=== PATIENT | female | born 1950 | race Two or more races ===

== ENCOUNTER 2023-06-27 09:32 | Outpatient (OUT) | payer OTHER, SELFPAY ==
--- NOTE | 2023-06-27 | XR_ITS ---
The [address] [address] Patient Name: HUSSAIN VILLEDA MRN: [id number] date: 1950 Sex: F Assigned Patient Location: [facility] Current Patient Location: RAD Accession/Order Number: [id number] Exam Date: 06/27/2023 09:48 Report Date: 06/27/2023 10:25 At the request of: MARGARITO JONES Procedure: XR foot LT min 3V PROCEDURE: XR foot LT min 3V COMPARISON: 09/10/2022 HISTORY: LEFT FOOT PAIN FINDINGS: BONES:No acute fracture or dislocation. Moderate enthesopathic spurring plantar calcaneus. Mild to moderate degenerative changes of the midfoot with joint space narrowing and marginal osteophyte formation SOFT TISSUES:Negative. No visible soft tissue swelling. EFFUSION:None visible. OTHER: Negative. XR/XR foot LT min 3V IMPRESSION: No acute abnormality Electronically authenticated by: ELKIN COLLIER Date: 06/27/2023 10:25
== END 2023-06-27 09:33 | disposition home or self-care (01) ==
LOC: RAD 09:36
PROVIDERS: Visit Provider Podiatrist Foot & Ankle Surgery
DX: M79.672 Pain in left foot (principal)
CPT/HCPCS: 73630

== ENCOUNTER 2023-12-24 14:00 | Outpatient (OUT) | payer OTHER, SELFPAY ==
--- NOTE | 2023-12-24 | XR_ITS ---
The [address] [address] Patient Name: HUSSAIN VILLEDA MRN: [id number] date: 1950 Sex: F Assigned Patient Location: Current Patient Location: Accession/Order Number: [id number] Exam Date: 12/24/2023 14:05 Report Date: 12/25/2023 07:24 At the request of: MARGARITO JONES Procedure: XR foot LT min 3V PROCEDURE: XR foot LT min 3V COMPARISON: 06/27/2023 HISTORY: LEFT FOOT PAIN FINDINGS: BONES:Moderate stable hallux valgus. Moderate degenerative changes with joint space narrowing and marginal osteophyte formation most significant in the midfoot. Moderate plantar enthesopathic spurring of the calcaneus SOFT TISSUES:Negative. No visible soft tissue swelling. EFFUSION:None visible. OTHER: Negative. XR/XR foot LT min 3V IMPRESSION: Hallux valgus Osteoarthritis Electronically authenticated by: ELKIN COLLIER Date: 12/25/2023 07:24
--- OUTSIDE RECORDS SUMMARY | 2023-12-24 14:13 | XMS_ITS | CCD ---
Author Organization [facility] Care Team Providers Care Farm Operations Technical Director Name Role Phone Danielle Barros Unavailable Mary Alicea Unavailable DO Nancy Jha Primary Care Provider DO Frank Guzman Attending Provider RIDGE Levine Attending Provider MD Darek Chang II Attending Provider Darek Chang II Unavailable [phone] Keyshawn Acosta Unavailable DO Nancy Jha Primary Care Provider MD Darek Chang II Attending Provider RIDGE Levine Attending Provider [phone] MARGARITO JONES Admitting Unavailable NANCY JHA Primary Care Unavailable MARGARITO JONES Consulting Unavailable MARGARITO JONES Attending Unavailable ALYSA COVARRUBIAS Consulting Unavailable MARGARITO JONES Admitting Unavailable DR MAGNOLIA MICHEL Consulting Unavailable NANCY JHA Primary Care Unavailable MARGARITO JONES Attending Unavailable MARGARITO JONES Consulting Unavailable SONJA OMER Consulting Unavailable DARIUS JEAN Consulting Unavailable MARGARITO COOK Consulting Unavailable MARGARITO JONES Attending Unavailable DR ELKIN COLLIER V Consulting Unavailable MARGARITO JONES Admitting Unavailable MARGARITO JONES Consulting Unavailable DO Nancy Jha Primary Care Provider [phone] ARIELLA Pedersen Emergency Provider DO Nancy Jha Attending Provider DO Nancy Jha Primary Care Provider [phone] MD Darek Chang II Attending Provider Petznick, DO Nancy Primary Care Provider Petznick, DO Nancy Primary Care Provider [phone] MD Darek Chang II Attending Provider Petznick, DO Nancy Primary Care Provider MD Darek Chang II Attending Provider Amber Wang Unavailable Petznick, DO Nancy Primary Care Provider MD Darek Chang II Attending Provider [phone] LEVI Wang Attending Provider Petznick, DO Nancy Primary Care Provider MD Darek Chang II Attending Provider Self, Referral Attending Provider Unavailable Petznick, DO Nancy Primary Care Provider Petznick, DO Nancy Attending Provider Darek Chang II Admitting Unavailabl e Darek Chang II Attending Unavailabl e Petznick, Nancy Primary Care Unavailable Levine, Connie Attending Unavailable Petznick, Nancy Primary Care Unavailable Levine, Connie Admitting Unavailable Amber Wang Attending Unavailable Petznick, Nancy Primary Care Unavailable Amber Wang Admitting Unavailable Self, Referral Attending Unavailable Petznick, Nancy Primary Care Unavailable Self, Referral Admitting Unavailable Petznick, Nancy Primary Care Unavailable Petznick, Nancy Attending Unavailable Petznick, Nancy Admitting Unavailable Darek Chang II Admitting Unavailabl e Darek Chang II Attending Unavailabl e Petznick, Nancy Primary Care Unavailable Otter TailDarek cormier II Attending Unavailabl e Otter TailDarek cormier II Admitting Unavailabl e Petznick, Nancy Primary Care Unavailable Frandy Pedersen Attending Unavailable Petznick, Nancy Primary Care Unavailable Frandy Pedersen Admitting Unavailable Petznick, Nancy Attending Unavailable Petznick, Nancy Admitting Unavailable Petznick, Nancy Primary Care Unavailable Petznick, Nancy Primary Care Unavailable Petznick, Nancy Attending Unavailable Petznick, Nancy Admitting Unavailable Petznick, Nancy Primary Care Unavailable [place] II, Darek M Admitting Unavailabl e [place] II, Darek M Attending Unavailabl e Petznick, Nancy Primary Care Unavailable Petznick, Nancy Attending Unavailable Petznick, Nancy Admitting Unavailable Bernardo II, Darek M Admitting Unavailabl e Bernardo II, Darek M Attending Unavailabl e Petznick, Nancy Primary Care Unavailable [place] II, Darek M Admitting Unavailabl e Bernardo II, Darek M Attending Unavailabl e Petznick, Nancy Primary Care Unavailable Petznick, DO Nancy Primary Care Provider Petznick, DO Nancy Attending Provider Petznick DO, Nancy C Primary Care Provider [phone] MARY ALICE TATUM Referring Unavailable PETZNICK, NANCY C Primary Care Unavailable JARRED TATUMA Referring Unavailable PETZNICK, NANCY C Primary Care Unavailable MIREILLE, MARY ALICE Referring Unavailable PETZNICK, NANCY C Primary Care Unavailable JARRED TATUMA Attending Unavailable PETZNICK, NANCY C Primary Care Unavailable JARRED TATUMA Attending Unavailable PETZNICK, NANCY C Primary Care Unavailable TATUM, MARY ALICE Referring Unavailable PETZNICK, NANCY C Primary Care Unavailable PETZNICK, NANCY C Attending Unavailable PETZNICK, NANCY C Referring Unavailable FRANK GUZMAN Attending Unavailable PETZNICK, NANCY C Attending Unavailable PETZNICK, NANCY C Attending Unavailable Allergies Allergy Classification Reported Allergen(s) Allergy Type Date of Onset Reaction(s) Facility (13 sources) Bee/Wasp/Ant venom Propensity to adverse reactions Unknown [employer] Other (20 sources) Iodine; Translations: [IODINE] Drug Allergy 04-27-20 09 rash, Itching, Unknown [facility] (20 sources) Latex; Translations: [LATEX] Propensity to adverse reactions 10-11-19 16 rash, Itching, Unknown [facility] (20 sources) Penicillin; Translations: [penicillin] Drug Allergy 08-26-19 24 rash, Itching [facility] (20 sources) Shellfish Propensity to adverse reactions 11-06-19 GI Upset, Nausea/vomitin g [facility] [employer] Other (13 sources) paper tape- instead of regular tape to avoid blist Propensity to adverse reactions Unknown [facility] [employer] Other (3 sources) Adhesive agent; Translations: [ADHESIVE] Drug allergy (disorder) 08-26-19 [facility] (1 source) bee venom Drug allergy (disorder) [facility] (1 source) Iodine Drug Allergy [facility] (1 source) Latex Drug allergy (disorder) [facility] (1 source) Shellfish Drug allergy (disorder) [facility] (15 sources) Penicillins; Translations: [Penicillins] Allergy to substance 10-18-19 Unknown Reaction, Rash [facility] (15 sources) Shellfish; Translations: [shellfish derived] Allergy to substance 10-18-19 Unknown Reaction, Vomiting [facility] (15 sources) venom-honey bee; Translations: [venom-honey bee] Allergy to substance 10-18-19 Edema [facility] (10 sources) Adhesive Tape; Translations: [adhesive tape] Allergy to substance 01-30-20 [facility] (11 sources) bee venom protein (honey bee); Translations: [BEE VENOM PROTEIN (HONEY BEE)] Allergy to substance 10-23-19 Swelling, Unknown [facility] (2 sources) paper tape- instead of regular Allergy to substance 05-09-20 [facility] (1 source) Iodine Drug Allergy 01-30-20 [facility] (1 source) Latex Drug allergy (disorder) 01-30-20 [facility] (7 sources) Adhesive agent Drug Intolerance 08-26-19 Itching, Rash, Unknown [facility] (8 sources) Metoprolol; Translations: [METOPROLOL] Drug Allergy 09-19-19 Headache, Dizziness, Nausea/vomitin g [facility] (2 sources) SHELLFISH CONTAINING PRODUCTS; Translations: [SHELLFISH CONTAINING PRODUCTS] Propensity to adverse reactions to food (disorder) 11-06-19 [facility] Rep[facility] Medications Current Medications Medication Drug Class(es) Dates Sig (Normalized) Sig (Original) acetaminophen 500 mg oral tablet (5 sources) Start: 01-31-2023 take 2 tablets by mouth every eight hours for pain Acetaminophen 500 MG 2 tablets for pain Orally every 8 hrs for 30 days MED TO BED UPON DISCHARGE DOS: 02/11/2023 Jan, Active ascorbic acid 1000 mg oral tablet (20 sources) Vitamin C Start: 10-17-2022 take 1 tablet by mouth once daily Ascorbic Acid (Vitamin C) (Vitamin C) 1,000 mg Tablet Active 1000 MG PO Daily October 17, 2022 12:00am Vitamin C Active aspirin 81 mg oral tablet (5 sources) Platelet Aggregation Inhibitor, Nonsteroidal Anti-inflammatory Drug Start: 01-31-2023 take 1 tablet by mouth twice daily Aspirin 81 81 MG 1 tablet Orally Twice a day for 35 days MED TO BED UPON DISCHARGE DOS: 02/11/2023 Jan, Active Start: 01-31-2023 take 1 tablet by janet th every twelve hours Aspirin 81 81 MG 1 tablet Orally Twice a day for 35 days MED TO BED UPON DISCHARGE DOS: 02/11/2023 Jan, Active celecoxib 200 mg oral capsule (5 sources) Nonsteroidal Anti-inflammatory Drug Start: 01-31-2023 take 1 capsule by mouth every twelve hours Celecoxib 200 MG 1 capsule with food Orally Twice a day for 30 days MED TO BED UPON DISCHARGE DOS: 02/11/2023 Jan, Active cholecalciferol 0.125 mg oral tablet (14 sources) Vitamin D Start: 10-17-2022 take 1 tablet by mouth once daily Cholecalciferol (Vitamin D3) (Vitamin D3) 125 mcg (5,000 unit) Tablet Active 8000 UNIT PO Daily October 17, 2022 12:00am Start: 10-17-2022 take 1 tablet by janet th once daily Cholecalciferol (Vitamin D3) (Vitamin D3) 125 mcg (5,000 unit) Tablet Active 18044 UNIT PO Daily October 17, 2022 12:00am clindamycin 300 mg oral capsule (20 sources) Lincosamide Antibacterial Start: 05-09-2023 take 2 capsules by mouth every hour Clindamycin HCl 300 MG 2 capsules Orally 1 hour prior to procedure for 1 day(s) May, Active Start: 01-24-2021 take 1 capsule by mo uth three times daily clindamycin (Cleocin) 300 mg capsule Take 1 capsule (300 mg) by mouth 3 times a day. 01/24/2021 Active take 2 capsules by m outh every eight hours Clindamycin HCl 300 MG 2 capsules Orally every 8 hrs Active clonazePAM 0.5 mg oral tablet (20 sources) Benzodiazepine Start: 01-29-2023 take 0.5 mg by mouth once daily Clonazepam Active 0.5 MG PO Daily January 29, 2023 12:00am Start: 11-08-2022 take 1 tablet by janet th twice daily as needed clonazePAM (KlonoPIN) 0.5 mg tablet Take 1 tablet (0.5 mg) by mouth 2 times a day as needed. 11/08/2022 Active 24 hr dilTIAZem hydrochloride 120 mg extended release oral capsule (1 source) Calcium Channel Steve Start: 09-30-2023 End: 09-29-2024 take 1 capsule by mouth once daily dilTIAZem CD (Cardizem CD) 120 mg 24 hr capsule Indications: Palpitations , Primary hypertension Take 1 capsule (120 mg) by mouth once daily. 90 capsule 3 09/30/2023 09/29/2024 Active ethinyl estradiol 0.0025 mg / norethindrone acetate 0.5 mg oral tablet (7 sources) Estrogen norethindrone ac-eth estradioL (Femhrt Low Dose) 0.5-2.5 mg-mcg tablet Take 1 tablet by mouth once daily. Active ferrous sulfate 325 mg oral tablet (20 sources) Start: 01-29-2023 take 130 mg by mouth once daily Ferrous Sulfate Active 130 MG PO Daily January 29, 2023 12:00am take 1 tablet by mouth every oth er day ferrous sulfate, 325 mg ferrous sulfate, tablet Take 1 tablet by mouth every other day. Active take 1 tablet by mouth three carmelina es weekly Iron 325 (65 Fe) MG 1 tablet Orally Three times a Week Active flecainide acetate 50 mg oral tablet (1 source) Antiarrhythmic Start: 09-30-2023 End: 09-29-2024 take 1 tablet by mouth twice daily flecainide (Tambocor) 50 mg tablet Indications: History of PSVT (paroxysmal supraventricular tachycardia) , Palpitations , High risk medication use Take 1 tablet (50 mg) by mouth 2 times a day. 180 tablet 3 09/30/2023 09/29/2024 Active Handicap placards as directed (1 source) Start: 05-09-2023 Handicap placards as directed as directed as directed as directed for 365 days 1 year handicap placard: 05/09/2023- 05/09/2024 May, Active levothyroxine sodium 0.1 mg oral tablet (20 sources) l-Thyroxine Start: 10-17-2022 take 100 ug by mouth once daily Levothyroxine Active 100 MCG PO Daily October 17, 2022 12:00am Start: 10-30-2016 take 1 tablet by janet th once daily in the morning Levothyroxine Sodium 112 MCG 1 tablet in the morning on an empty stomach Orally Once a day for 90 days October, Active Start: 10-30-2016 take 1 tablet by janet th every twenty-four hours Levothyroxine Sodium 88 MCG 1 tablet Orally Once a day for 90 days October, Active Synthroid 100 MC G TAKE ONE TABLET BY MOUTH EVERY MORNING ON AN EMPTY STOMACH Orally Once a day for 90 days Not-Taking take 1 tablet by janet th once daily in the morning Synthroid 88 TAKE ONE TABLET BY MOUTH EVERY MORNING ON AN EMPTY STOMACH for 30 Not-Taking lisinopril 20 mg oral tablet (20 sources) Angiotensin Converting Enzyme Inhibitor Start: 10-17-2022 take 20 mg by mouth once daily Lisinopril Active 20 MG PO Daily October 17, 2022 12:00am Magnesium (13 sources) take 1 tablet by mouth once tasha y Magnesium 400 MG 1 tablet Orally daily Active magnesium citrate 100 mg oral tablet (14 sources) Start: 10-17-2022 take 400 mg by mouth once daily in the evening Magnesium Citrate Active 400 MG PO Every evening October 17, 2022 12:00am magnesium oxide 400 mg oral capsule (7 sources) Start: 08-26-2023 End: 08-25-2024 take 1 capsule by mouth twice daily magnesium oxide 400 mg magnesium capsule Indications: History of PSVT (paroxysmal supraventricular tachycardia) , Palpitations Take 1 capsule (400 mg) by mouth 2 times a day. 180 capsule 3 08/26/2023 08/25/2024 Active 24 hr metoprolol succinate 25 mg extended release oral tablet (1 source) beta-Adrenergi c Setve Start: 08-26-2023 End: 08-25-2024 take 1 tablet by mouth once daily metoprolol succinate XL (Toprol XL) 25 mg 24 hr tablet Indications: History of PSVT (paroxysmal supraventricular tachycardia) , Palpitations , Primary hypertension Take 1 tablet (25 mg) by mouth once daily. Do not crush or chew. 30 tablet 11 08/26/2023 08/25/2024 Active Multivitamin preparation (14 sources) Start: 10-17-2022 take 1 tablet by mouth once daily Multivitamin Active 1 TAB PO Daily October 16, 2022 11:00pm Start: 10-17-2022 take 1 tablet by janet th once daily Multivitamin Active 1 TAB PO Daily October 17, 2022 12:00am multivitamin tablet (7 sources) take 1 tablet by janet th once daily multivitamin tablet Take 1 tablet by mouth once daily. Active take 1 tablet by mouth once tasha y multivitamin tablet Take 1 tablet by mouth once daily. 0 Active Multivitamins (13 sources) take 1 tablet by mouth once tasha y Multivitamins 1 tablet Orally daily Active nitroglycerin 0.4 mg sublingual tablet (7 sources) Nitrate Vasodilator Start: 10-22-2022 End: 10-22-2023 nitroglycerin (Nitrostat) 0.[address] 1 tablet (0.4 mg) under the tongue every 5 minutes if needed. 10/22/2022 10/22/2023 Active pantoprazole 20 mg delayed release oral tablet (5 sources) Proton Pump Inhibitor Start: 01-31-2023 take 1 tablet by mouth every twenty-four hours Protonix 20 MG 1 tablet Orally Once a day for 35 days MED TO BED UPON DISCHARGE DOS: 02/11/2023 Jan, Active Selenium (14 sources) Start: 10-17-2022 take 100 ug by mouth once daily Selenium Active 100 MCG PO Daily October 16, 2022 11:00pm Start: 10-17-2022 take 100 ug by mouth once tasha y Selenium Active 100 MCG PO Daily October 17, 2022 12:00am selenium (SELENOMAX ORAL) (7 sources) selenium (SELENO MAX ORAL) Take 100 mcg/day by mouth once daily. Active selenium (SELENO MAX ORAL) Take 100 mcg/day by mouth once daily. 0 Active Selenium 100 MCG (13 sources) take 1 capsule by mo uth once daily Selenium 100 MCG 1 capsule Orally Once a day Active take 1 capsule by mouth once leah ly Selenium 100 MCG 1 capsule Orally Once a day Not-Taking sertraline 25 mg oral tablet (20 sources) Serotonin Reuptake Inhibitor Start: 10-17-2022 take 1 tablet by mouth once daily sertraline (Zoloft) 25 mg tablet Take 1 tablet (25 mg) by mouth once daily. 07/24/2023 Active Sertraline HCl A ctive Triest (9 sources) Start: 01-29-2023 take 2.5 mg by mouth once daily in the evening Triest Active 2.5 MG PO Every evening January 28, 2023 11:00pm Start: 01-29-2023 take 2.5 mg by mouth once daily in the evening Triest Active 2.5 MG PO Every evening January 29, 2023 12:00am Vitamin D3 (13 sources) Vitamin D3 Activ e vitamin D3-vitamin K2 1,250- 200 mcg capsule (7 sources) vitamin D3-vitam in K2 1,250-200 mcg capsule Vitamin D3 Active vitamin D3-vitam in K2 1,250-200 mcg capsule Vitamin D3 0 Active Completed/Discontinued Medications Medication Drug Class(es) Dates Sig (Normalized) Sig (Original) cefadroxil 500 mg oral capsule (7 sources) Cephalosporin Antibacterial Start: 02-01-20 take 1 capsule by mouth every twelve hours Cefadroxil 500 MG 1 tablet Orally every 12 hrs for 7 days MED TO BED UPON DISCHARGE DOS: 02/11/2023 Jan, Not-Taking docusate sodium 50 mg / sennosides, assisted 8.6 mg oral tablet (7 sources) Start: 02-01-20 take 2 tablets by mouth every twenty-four hours Senokot S 8.6-50 MG 2 tablets Orally Once a day for 30 days MED TO BED UPON DISCHARGE DOS: 02/11/2023 Jan, Not-Taking hydroCHLOROthiazide 25 mg oral tablet (1 source) Thiazide Diuretic take 1 tablet by mouth every twenty-four hours hydroCHLOROthiazide 25 MG 1 tablet Orally Once a day for 30 day(s) Not-Taking liothyronine (14 sources) l-Triiodothyronin e take 1 tablet by janet th once daily in the morning, then take 1 tablet by mouth once daily in the evening Cytomel TAKE ONE TABLET BY MOUTH EVERY MORNING AND TAKE ONE TABLET BY MOUTH EVERY EVENING Not-Taking take 1 tablet by mouth once tasha y Cytomel 5 1 tablet on an empty stomach Orally Once a day Not-Taking morphine sulfate 15 mg extended release oral tablet (7 sources) Opioid Agonist Start: 01-31-2023 take 1 tablet by mouth every twelve hours for pain Morphine Sulfate ER 15 MG 1 tablet for breakthrough pain only Orally every 12 hrs for 5 days MED TO BED UPON DISCHARGE DOS: 02/11/2023 Jan, Not-Taking ondansetron 8 mg oral tablet (7 sources) Serotonin-3 Receptor Antagonist Start: 01-31-2023 take 1 tablet by mouth three times daily as needed for nausea Ondansetron HCl 8 MG 1 tablet as needed for nausea Orally Three times a day for 10 days MED TO BED UPON DISCHARGE DOS: 02/11/2023 Jan, Not-Taking oxyCODONE hydrochloride 5 mg oral tablet (7 sources) Opioid Agonist Start: 01-31-2023 take 1 tablet by mouth every four hours as needed for pain oxyCODONE HCl 5 MG 1 tablet as needed for pain Orally every 4 hrs for 10 days MED TO BED UPON DISCHARGE DOS: 02/11/2023 Jan, Not-Taking polyethylene glycol 3350 46050 mg powder for oral solution (7 sources) Osmotic Laxative Start: 01-31-2023 MiraLax 17 GM 1 packet mixed with 8 ounces of fluid Orally Once a day for 7 days MED TO BED UPON DISCHARGE DOS: 02/11/2023 Jan, Not-Taking predniSONE 10 mg oral tablet (4 sources) Start: 02-11-2023 take 1 tablet by mouth twice daily prednisone 10 mg 1 tablet Orally twice a day for 3 days MED TO BED UPON DISCHARGE DOS: 02/11/2023 Feb, Not-Taking Progesterone (13 sources) Progesterone Progesterone 100 MG 1 suppository Vaginal Once a day for 30 day(s) Not-Taking regadenoson (Lexiscan) injection 0.4 mg (1 source) Start: 09-25-2023 End: 09-25-2023 0.4 mg, intravenous, Once, On Sat09/25/23 at 1200, For 1 dose Sucralfate (Carafate) 100 mg/mL suspension (13 sources) Start: 10-17-2022 End: 01-29-2023 take 1 g by mouth twice daily Sucralfate (Carafate) 100 mg/mL suspension Discontinued 1 GM PO Twice daily 280 October 16, 2022 11:00pm January 29, 2023 10:30am Start: 10-17-2022 End: 01-29-2023 take 1 g by mouth twice daily Sucralfate (Carafate) 10 0 mg/mL suspension Discontinued 1 GM PO Twice daily 280 October 17, 2022 12:00am January 29, 2023 11:30am Start: 10-17-2022 take 1 g by mouth twice daily Sucralfate (Carafate) 100 mg/mL suspension Active 1 GM PO Twice daily 280 October 17, 2022 12:00am Tc-99m tetrofosmin (Myoview) injection 30 millicurie (1 source) Start: 09-25-2023 End: 09-25-2023 30 millicurie, intravenous, Once in imaging, Starting on Sat09/25/23 at 1114, For 1 dose, Administer 45 to 90 minutes prior to imaging unless otherwise indicated. Tc-99m tetrofosmin (Myoview) injection 34.1 millicurie (1 source) Start: 09-26-2023 End: 09-26-2023 34.1 millicurie, intravenous, Once in imaging, Starting on Sat09/26/23 at 1144, For 1 dose, Administer 45 to 90 minutes prior to imaging unless otherwise indicated. traMADol hydrochloride 50 mg oral tablet (7 sources) Opioid Agonist Start: 01-31-2023 take 1 tablet by mouth every six hours as needed for pain traMADol HCl 50 MG 1 tablet as needed for pain Orally every 6 hrs for 10 days MED TO BED UPON DISCHARGE DOS: 02/11/2023 Jan, Not-Taking Problems Active Problems Problem Classification Problem Date Documented Date Episodic/Chronic Acquired foot deformities (6 sources) Other hammer toe(s) (acquired), left foot; Translations: [Hallux valgus (acquired), left foot] Onset: 08-09-2022 Chronic Acquired foot deformities (1 source) Bunionette of left foot; Translations: [BUNIONETTE OF LEFT FOOT] Onset: 09-13-2022 Episodic Cardiac dysrhythmias (2 sources) Ventricular premature depolarization; Translations: [Supraventricular tachycardia] Onset: 12-27-2022 08-26-2023 Chronic Cardiac dysrhythmias (16 sources) Palpitations; Translations: [Palpitations] Onset: 11-20-2022 08-26-2023 Episodic Conduction disorders (11 sources) Right bundle branch block; Translations: [Unspecified right bundle-branch block] Onset: 08-26-2023 08-26-2023 Chronic Esophageal disorders (13 sources) Gastroesophageal reflux disease; Translations: [Gastro-esophageal reflux disease without esophagitis] 10-17-2022 Chronic Essential hypertension (15 sources) Essential (primary) hypertension; Translations: [Hypertensive disorder] Onset: 09-13-2022 08-26-2023 Chronic Menopausal disorders (1 source) Hormone replacement therapy; Translations: [HORMONE REPLACEMENT THERAPY] Onset: 09-13-2022 Episodic Nutritional deficiencies (13 sources) Vitamin D deficiency; Translations: [Vitamin D deficiency, unspecified] Chronic Osteoarthritis (16 sources) Osteoarthritis of right hip joint; Translations: [Unilateral primary osteoarthritis, right hip] Chronic Osteoporosis (15 sources) Primary osteoporosis; Translations: [Age-related osteoporosis without current pathological fracture] Onset: 12-20-2022 Chronic Other aftercare (3 sources) Patient encounter status; Translations: [Aftercare following joint replacement surgery] Chronic Other aftercare (3 sources) Aftercare following joint replacement surgery Chronic Other aftercare (7 sources) Other shelter (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; Translations: [OTH ASSISTED CURRENT DRUG THERAPY] Onset: 09-13-2022 Episodic Other aftercare (2 sources) Taking high risk medication; Translations: [Other shelter (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] Onset: 09-30-2023 09-30-2023 Episodic Other aftercare (2 sources) Treatment changed; Translations: [Other shelter (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] Onset: 09-30-2023 09-30-2023 Episodic Other circulatory disease (10 sources) History of paroxysmal supraventricular tachycardia; Translations: [Personal history of other diseases of the circulatory system] Onset: 08-26-2023 08-26-2023 Episodic Other circulatory disease (4 sources) Personal history of other diseases of the circulatory system; Translations: [Personal history of other diseases of the circulatory system] Onset: 08-26-2023 Episodic Other connective tissue disease (1 source) Presence of artificial knee joint, bilateral; Translations: [PRESENCE ARTIFICIAL KNEE JNT BILAT] Onset: 09-13-2022 Chronic Other connective tissue disease (3 sources) Hip joint prosthesis present; Translations: [Presence of right artificial hip joint] Chronic Other connective tissue disease (3 sources) History of total hip arthroplasty; Translations: [Presence of right artificial hip joint] Chronic Other connective tissue disease (6 sources) Presence of right artificial hip joint Chronic Other connective tissue disease (5 sources) Pain in left foot; Translations: [PAIN IN LEFT FOOT] Onset: 08-07-2022 Episodic Other non-traumatic joint disorders (3 sources) Pain in right hip Episodic Other nutritional; endocrine; and metabolic disorders (16 sources) Body mass index 30+ - obesity; Translations: [Body mass index (BMI) 32.0-32.9, adult] Onset: 09-30-2023 08-26-2023 Chronic Other nutritional; endocrine; and metabolic disorders (13 sources) Obesity; Translations: [Obesity, unspecified] Chronic Other nutritional; endocrine; and metabolic disorders (13 sources) Obese class I; Translations: [Body mass index (BMI) 34.0-34.9, adult] Chronic Other nutritional; endocrine; and metabolic disorders (12 sources) Obese class II; Translations: [Body mass index (BMI) 35.0-35.9, adult] Chronic Other nutritional; endocrine; and metabolic disorders (2 sources) Body mass index (BMI) 35.0-35.9, adult; Translations: [Body Mass Index 35.0-35.9, adult] Onset: 04-20-2021 Resolved: 04-20-2021 Chronic Other nutritional; endocrine; and metabolic disorders (2 sources) Body mass index (BMI) 37.0-37.9, adult; Translations: [Body mass index (BMI) 37.0-37.9, adult] Onset: 09-30-2023 Chronic Other screening for suspected conditions (not mental disorders or infectious disease) (6 sources) Electrocardiogram abnormal; Translations: [Abnormal electrocardiogram [ECG] [EKG]] Onset: 08-26-2023 08-26-2023 Episodic Other upper respiratory disease (14 sources) Pain in throat; Translations: [Pain in throat] Onset: 10-17-2022 10-17-2022 Episodic Residual codes; unclassified (20 sources) Obstructive sleep apnea syndrome; Translations: [Obstructive sleep apnea (adult) (pediatric)] 08-26-2023 Chronic Residual codes; unclassified (4 sources) Obstructive sleep apnea (adult) (pediatric); Translations: [OBSTRUCTIVE SLEEP APNEA] Onset: 04-20-2021 Resolved: 04-20-2021 Chronic Residual codes; unclassified (1 source) Obstructive sleep apnea (adult)(pediatric); Translations: [Obstructive sleep apnea (adult) (pediatric)] Onset: 09-06-2022 Chronic Residual codes; unclassified (8 sources) Sleep apnea; Translations: [Sleep apnea, unspecified] Onset: 08-26-2023 08-26-2023 Chronic Residual codes; unclassified (1 source) Sleep apnea, unspecified; Translations: [Obstructive sleep apnea (adult)(pediatric)] 08-26-2023 Chronic Residual codes; unclassified (1 source) Acquired absence of both cervix and uterus; Translations: [ACQUIRED ABSENCE BOTH CERVIX AND UTERUS] Onset: 09-13-2022 Episodic Residual codes; unclassified (1 source) Acquired absence of other specified parts of digestive tract; Translations: [ACQ ABSENCE OTH PART DIGESTV TRACT] Onset: 09-13-2022 Episodic Residual codes; unclassified (2 sources) Never smoked tobacco; Translations: [Other specified health status] Onset: 09-30-2023 09-30-2023 Episodic Residual codes; unclassified (2 sources) Other specified health status; Translations: [Other specified health status] Onset: 09-30-2023 Episodic Syncope (15 sources) Syncope and collapse; Translations: [Near syncope] Onset: 11-20-2022 08-26-2023 Episodic Thyroid disorders (20 sources) Bradley thyroiditis; Translations: [Autoimmune thyroiditis] Onset: 09-13-2022 08-26-2023 Chronic Unclassified (1 source) Encounter for screening mammogram for malignant neoplasm of breast; Translations: [Encounter for screening mammogram for malignant neoplasm of breast] Onset: 05-20-2023 Unclassified (1 source) Aftercare following joint replacement surgery; Translations: [Aftercare following joint replacement surgery] Onset: 05-09-2023 Unclassified (1 source) Presence of right artificial hip joint; Translations: [Presence of right artificial hip joint] Onset: 03-27-2023 Unclassified (1 source) Unilateral primary osteoarthritis, right hip; Translations: [Unilateral primary osteoarthritis, right hip] Onset: 02-11-2023 Unclassified (1 source) Encounter for preprocedural laboratory examination; Translations: [Encounter for preprocedural laboratory examination] Onset: 01-29-2023 Unclassified (1 source) Pain in right hip; Translations: [Pain in right hip] Onset: 12-20-2022 Past or Other Problems Problem Classification Problem Date Documented Da te Episodic/Chronic Conditions associated with dizziness or vertigo (1 source) Dizziness and giddiness; Translations: [Dizziness and giddiness] Onset: 11-20-2022 Episodic Diabetes mellitus without complication (1 source) Impaired fasting glucose; Translations: [Impaired fasting glucose] Onset: 11-20-2022 Episodic Immunizations and screening for infectious disease (1 source) Encounter for immunization; Translations: [Encounter for immunization Z23] Onset: 03-07-2021 Resolved: 03-07-2021 Episodic Unclassified (7 sources) Onset: 08-26-2023 08-26-2023 Results Test Name Value Interpretation Reference Range Facility ECG 12 [place]on 09-30-[address] [facility] Work Phone: EKG shows normal sin us rhythm at 69 bpm with NJ interval of 172 ms QRS duration 106 ms QTc 424 ms. Incomplete right bundle branch block probable. [facility] Work Phone: NM Heart Perfusion W stress and W radionuclide Lucy 09-26-2023 Normal Lexiscan Myov iew cardiac perfusion stress test. No evidence of ischemia or myocardial infarction by perfusion imaging. Normal left ventricular systolic function, ejection fraction 68%. No change when compared to previous study. Signed by: Edelmira Pardo 09/26/2023 5:25 PM Dictation workstation: [id number] Interpreted By: Edelmira Pardo and Beal Gina STUDY: MYOCARDIAL PERFUSION STRESS TEST WITH LEXISCAN Performing facility: [facility], [address] [place] [address] 250, [address] Provider: Mary Alice Tatum MD, [facility] PCP: Dr. Antoni Jha Supervising provider: Ubaldo French MD, [facility] INDICATION: PSVT, palpitations Abnormal EKG; Presyncope HISTORY: Gender: F; Age: 73 y/o ; Height: HT 171.5 cm cm; Weight: WT 107.049 kg kg. Abnormal EKG; HTN; Arrhythmias; Syncope; Palpitations; RBBB Denies smoking. COMPARISON: Previous nuclear testing completed 2010 at [facility]. ACCESSION NUMBER(S): [id number] ORDERING CLINICIAN: MARY ALICE TATUM TECHNIQUE: TWO DAY protocol. Stress injection: Date:09/25/23, 32.7 mCi of Myoview IV 20 seconds after rapid injection of Lexiscan. Rest injection: Date: 09/26/23, 34.1 mCi of Myoview IV at rest. The patient had a rapid injection of 0.4 mg of Lexiscan IV over 10 seconds. Imaging was performed by gated tomographic technique. Reason for Lexiscan: EXERCISE Intolerance STRESS TEST DATA: Resting heart rate was 75 BPM. Resting blood pressure was 128/86 mmHg. Peak blood pressure was 12/82 mmHg. Peak heart rate was 104 BPM. TEST TERMINATED DUE TO: Protocol completed FINDINGS: STRESS TEST RESULTS: Resting electrocardiogram revealed normal sinus rhythm. There were no significant ischemic ECG changes or dysrhythmias. The patient did not have chest pains/symptoms during procedure. There was a normal recovery phase. IMAGING RESULTS: Image quality was good. Rest and stress tomographic images were reviewed and revealed normal perfusion without evidence of ischemia, myocardial infarction, or left ventricular dilatation with stress. Overall left ventricular systolic function appeared to be normal without regional wall motion abnormalities. Ejection fraction was 68%. TID is 1.0 cm and is normal. There were no evidence of attenuation artifact. MMODAL Edelmira Pardo MD - 09/26/2023 Interpreted By: Edelmira Pardo and Beal Gina STUDY: MYOCARDIAL PERFUSION STRESS TEST WITH LEXISCAN Performing facility: [facility], [address] [facility], [address], [address] Provider: Mary Alice Tatum MD, [facility] PCP: Dr. Antoni Jha Supervising provider: Ubaldo French MD, [facility] INDICATION: PSVT, palpitations Abnormal EKG; Presyncope HISTORY: Gender: F; Age: 73 y/o ; Height: HT 171.5 cm cm; Weight: WT 107.049 kg kg. Abnormal EKG; HTN; Arrhythmias; Syncope; Palpitations; RBBB Denies smoking. COMPARISON: Previous nuclear testing completed 2010 at [facility]. ACCESSION NUMBER(S): [id number] ORDERING CLINICIAN: MARY ALICE TATUM TECHNIQUE: TWO DAY protocol. Stress injection: Date:09/25/23, 32.7 mCi of Myoview IV 20 seconds after rapid injection of Lexiscan. Rest injection: Date: 09/26/23, 34.1 mCi of Myoview IV at rest. The patient had a rapid injection of 0.4 mg of Lexiscan IV over 10 seconds. Imaging was performed by gated tomographic technique. Reason for Lexiscan: EXERCISE Intolerance STRESS TEST DATA: Resting heart rate was 75 BPM. Resting blood pressure was 128/86 mmHg. Peak blood pressure was 12/82 mmHg. Peak heart rate was 104 BPM. TEST TERMINATED DUE TO: Protocol completed FINDINGS: STRESS TEST RESULTS: Resting electrocardiogram revealed normal sinus rhythm. There were no significant ischemic ECG changes or dysrhythmias. The patient did not have chest pains/symptoms during procedure. There was a normal recovery phase. IMAGING RESULTS: Image quality was good. Rest and stress tomographic images were reviewed and revealed normal perfusion without evidence of ischemia, myocardial infarction, or left ventricular dilatation with stress. Overall left ventricular systolic function appeared to be normal without regional wall motion abnormalities. Ejection fraction was 68%. TID is 1.0 cm and is normal. There were no evidence of attenuation artifact. IMPRESSION: Normal Lexiscan Myoview cardiac perfusion stress test. No evidence of ischemia or myocardial infarction by perfusion imaging. Normal left ventricular systolic function, ejection fraction 68%. No change when compared to previous study. Signed by: Edelmira Pardo 09/26/2023 5:25 PM Dictation workstation: [id number] [facility] Work Phone: KL Heart Perfusion W stress and W radionuclide IVOrdered By: Edelmira Pardo on 09-26-[address] [facility] Work Phone: NM Heart Perfusion W stress and W radionuclide Lucy 09-25-2023 Radiology Study observation (narrative) [facility] Work Phone: NUCLEAR STRESS TESTon 2023 NUCLEAR STRESS TEST Interpreted By: Edelmira Pardo and Beal Gina STUDY: MYOCARDIAL PERFUSION STRESS TEST WITH LEXISCAN Performing facility: [facility], [address] [place] [address], [address], [address] Provider: Mary Alice Tatum MD, [facility] PCP: Dr. Antoni Jha Supervising provider: Ubaldo French MD, [facility] INDICATION: PSVT, palpitations Abnormal EKG; Presyncope HISTORY: Gender: F; Age: 73 y/o ; Height: HT 171.5 cm cm; Weight: WT 107.049 kg kg. Abnormal EKG; HTN; Arrhythmias; Syncope; Palpitations; RBBB Denies smoking. COMPARISON: Previous nuclear testing completed 2010 at [facility]. ACCESSION NUMBER(S): [id number] ORDERING CLINICIAN: MARY ALICE TATUM TECHNIQUE: TWO DAY protocol. Stress injection: Date:09/25/23, 32.7 mCi of Myoview IV 20 seconds after rapid injection of Lexiscan. Rest injection: Date: 09/26/23, 34.1 mCi of Myoview IV at rest. The patient had a rapid injection of 0.4 mg of Lexiscan IV over 10 seconds. Imaging was performed by gated tomographic technique. Reason for Lexiscan: EXERCISE Intolerance STRESS TEST DATA: Resting heart rate was 75 BPM. Resting blood pressure was 128/86 mmHg. Peak blood pressure was 12/82 mmHg. Peak heart rate was 104 BPM. TEST TERMINATED DUE TO: Protocol completed FINDINGS: STRESS TEST RESULTS: Resting electrocardiogram revealed normal sinus rhythm. There were no significant ischemic ECG changes or dysrhythmias. The patient did not have chest pains/symptoms during procedure. There was a normal recovery phase. IMAGING RESULTS: Image quality was good. Rest and stress tomographic images were reviewed and revealed normal perfusion without evidence of ischemia, myocardial infarction, or left ventricular dilatation with stress. Overall left ventricular systolic function appeared to be normal without regional wall motion abnormalities. Ejection fraction was 68%. TID is 1.0 cm and is normal. There were no evidence of attenuation artifact. IMPRESSION: Normal Lexiscan Myoview cardiac perfusion stress test. No evidence of ischemia or myocardial infarction by perfusion imaging. Normal left ventricular systolic function, ejection fraction 68%. No change when compared to previous study. Signed by: Edelmira Pardo 09/26/2023 5:25 PM Dictation workstation: [id number] Normal [facility] ECG 12 Leadon 08-26-2023 Normal sinus rhythm, normal NJ interval, right bundle branch block normal QTc. Right bundle branch block is noted on prior EKGs as well [facility] Work Phone: CA cardiac event monitoron 0 08-13-2023 CA cardiac event monitor [facility] [place] [address] Cardiac Event Monitor Signed Patient: Julia Villeda MR#: [id number] : 1950 Acct:[id number] Age/Sex: 73 / F ADM Date: 07/17/23 Loc: Room: Type: [facility] Attending Dr: Nancy Jha DO Copies to: DO Edelmira Victoria MD Ordering Provider: Nancy Jha DO Date of Service: 07/17/23 CA/CA cardiac event monitor: r42,e06.3,r00.2 REASON FOR THE PROCEDURE: Dizziness. PROCEDURE: The patient underwent 30-day event monitor. Baseline rhythm appeared to be sinus with evidence of bundle branch block morphology. During the monitoring period, the patient reported symptoms of dizziness that seem to occur randomly, sometimes associated with sinus rhythm, but sometimes with burst of paroxysmal supraventricular tachycardia. Several brief runs of SVT with rate close to 170 beats per minute were noted. Majority of those runs of SVT lasted between 10 to 25 beats. CONCLUSION: 1. Normal sinus rhythm. 2. Documentation of multiple brief runs of SVT with heart rate close to 170 beats per minute. Some of those episodes appear to be symptomatic with symptoms of palpitation and dizziness. No bradycardic episodes were noted. Transcribed By: DIONICIO 08/13/23 6173 Dictated By: Edelmira Pardo MD 08/13/23 1206 Signed By: 08/14/23 0947 [facility] MM screening mammo BI w/CADo n 05-20-2023 MM screening mammo BI w/CAD [facility] Main [address] [address] Mammography Report Signed Patient: Julia Villeda MR#: [id number] : 1950 Acct:[id number] Age/Sex: 73 / F ADM Date: 05/20/23 Loc: [place] Room: Type: [facility] Attending Dr: Referral Self Copies to: Nancy Jha DO SELF,REFERRAL Ordering Provider: SELF,REFERRAL Date of Service: 05/20/23 MM/MM screening mammo BI w/CAD: SCREENING BILATERAL Screening Full Field digital mammogram with 3-D imaging. Full field digital CC and MLO imaging performed. CAD utilized. COMPARISON: 05/18/2022 HISTORY: Annual screening BREAST COMPOSITION: Scattered fibroglandular densities of the breast parenchyma identified BENIGN BREAST CALCIFICATIONS: Present VASCULAR CALCIFICATIONS: Present DEVELOPING ARCHITECTURAL DISTORTION: None DEVELOPING BREAST NODULE: None DEVELOPING MALIGNANT CALCIFICATIONS: None AXILLARY LYMPH NODES: Normal POSTSURGICAL CHANGES: None MM/MM screening mammo BI w/CAD IMPRESSION: No mammographic evidence of malignancy. Routine follow-up recommended in one year. RESULT CODE: 2 Benign Findings(s) DENSITY CODE: 2 (approximately 25-50% glandular) FOLLOW UP: 1YR THE FALSE-NEGATIVE RATE OF MAMMOGRAPHY IS APPROXIMATELY 10%. IMAGING OF A PALPABLE ABNORMALITY MUST BE BASED ON CLINICAL GROUNDS. PATIENT WAS ENTERED INTO A REMINDER SYSTEM WITH A [employer]ARGET DUE DATE FOR THE NEXT MAMMOGRAM. Impression dictated by: Guille Vasquez M.D.05/20/2023 9:53 AM Dictation Location: [facility] Transcribed By: [facility] 05/20/23952 Dictated By: Guille Vasquez DO 05/20/23 0951 Signed By: 05/20/23 0953 [facility] XR hip RT min 2V(w/wo pelvis )*on 05-09-2023 XR hip RT min 2V(w/wo pelvis)* [facility] Main [address] [address] XRay Report Signed Patient: Julia Villeda MR#: [id number] : 1950 Acct:[id number] Age/Sex: 73 / F ADM Date: 05/09/23 Loc: [facility] Room: Type: REG CLI Attending Dr: Amber VORAC Copies to: SHANNON Hansen Ordering Provider: SHANNON Hansen Date of Service: 05/09/23 XR/XR hip RT min 2V(w/wo pelvis)*: Z96.641 RIGHT HIP - 2 views: CLINICAL HISTORY: Follow-up right RADHA COMPARISON: Right hip 03/27/2023 FINDINGS: No hardware complication or acute bony process. Mild degenerative changes of the left hip. XR/XR hip RT min 2V(w/wo pelvis)* IMPRESSION: NO HARDWARE CONSULTATION.. Impression dictated by: Cj Mercado Jr., DBestOBest05/09/2023 12:18 PM Dictation Location: [place] [address] Transcribed By: [facility] 05/09/23 1218 Dictated By: Cj Mercado Jr, DO 05/09/23 1216 Signed By: 05/09/23 1218 Normal [facility] XR hip RT min 2V(w/wo pelvis )*on 03-27-2023 XR hip RT min 2V(w/wo pelvis)* [address] [address] XRay Report Signed Patient: Julia Villeda MR#: [id number] 3268 : 1950 Acct:[id number] Age/Sex: 73 / F ADM Date: 03/27/23 Loc: [facility] Room: Type: REG CLI Attending Dr: Darek Chang II, MD Copies to: Darek Chang MD Ordering Provider: Darek Chang MD Date of Service: 03/27/23 XR/XR hip RT min 2V(w/wo pelvis)*: S/P total right hip arthroplasty RIGHT HIP WITH LOW AP PELVIS- 2 views: CLINICAL HISTORY: Follow-up right hip replacement COMPARISON: 02/11/2023 AP weight-bearing low pelvis and crosstable lateral view of the right hip were obtained. The right hip prosthesis is again visualized. The hardware appears intact and unchanged from the prior. There is no developing fracture or dislocation. There are no significant soft tissue abnormalities. XR/XR hip RT min 2V(w/wo pelvis)* IMPRESSION: STABLE HIP PROSTHESIS Impression dictated by: Claudette Olivares M.D.03/27/2023 2:28 PM Dictation Location: [facility] Transcribed By: [facility] 03/27/231427 Dictated By: Claudette Olivares MD 03/27/231426 Signed By: 03/27/231427 Normal [facility] XR hip RT min 2V(w/wo pelvis)* [facility] [employer] Other XR hip RT min 2V(w/wo pelvis)* [facility] [employer] Other XR hip RT min 2V(w/wo pelvis)* [address] [facility] [employer] Other XR hip RT min 2V(w/wo pelvis)* [place] [address] [employer] Other XR hip RT min 2V(w/wo pelvis)* XRay Report [employer] Other XR hip RT min 2V(w/wo pelvis)* Signed [employer] Other XR hip RT min 2V(w/wo pelvis)* Patient: Julia Villeda MR#: [id number] [employer] Other XR hip RT min 2V(w/wo pelvis)* 7571 [employer] Other XR hip RT min 2V(w/wo pelvis)* : 1950 Acct:[id number] [employer] Other XR hip RT min 2V(w/wo pelvis)* Age/Sex: 73 / F ADM Date: 03/27/23 [employer] Other XR hip RT min 2V(w/wo pelvis)* Loc: [facility] Room: Type: [facility] [employer] Other XR hip RT min 2V(w/wo pelvis)* Attending Dr: Darek Chang II, MD [employer] Other XR hip RT min 2V(w/wo pelvis)* Copies to: Darek Chang MD [employer] Other XR hip RT min 2V(w/wo pelvis)* Ordering Provider: Darek Chang MD [employer] Other XR hip RT min 2V(w/wo pelvis)* Date of Service: 03/27/23 [employer] Other XR hip RT min 2V(w/wo pelvis)* XR/XR hip RT min 2V(w/wo pelvis)*: S/P total right hip arthroplasty [employer] Other XR hip RT min 2V(w/wo pelvis)* RIGHT HIP WITH LOW AP PELVIS- 2 views: [employer] Other XR hip RT min 2V(w/wo pelvis)* CLINICAL HISTORY: Follow-up right hip replacement [employer] Other XR hip RT min 2V(w/wo pelvis)* COMPARISON: 02/11/2023 [employer] Other XR hip RT min 2V(w/wo pelvis)* AP weight-bearing low pelvis and crosstable lateral view of the right hip were obtained. The right [employer] Other XR hip RT min 2V(w/wo pelvis)* hip prosthesis is again visualized. The hardware appears intact and unchanged from the prior. [employer] Other XR hip RT min 2V(w/wo pelvis)* There is no developing fracture or dislocation. There are no significant soft tissue abnormalities. [employer] Other XR hip RT min 2V(w/wo pelvis)* XR/XR hip RT min 2V(w/wo pelvis)* [employer] Other XR hip RT min 2V(w/wo pelvis)* IMPRESSION: [employer] Other XR hip RT min 2V(w/wo pelvis)* STABLE HIP PROSTHESIS [employer] Other XR hip RT min 2V(w/wo pelvis)* Impression dictated by: Claudette Olivares M.D.03/27/2023 2:28 PM [employer] Other XR hip RT min 2V(w/wo pelvis)* Dictation Location: [place] [address] [employer] Other XR hip RT min 2V(w/wo pelvis)* Transcribed By: ARACELY 03/27/23 [facility] [employer] Other XR hip RT min 2V(w/wo pelvis)* Dictated By: Claudette Olivares MD 03/27/23 [facility] [employer] Other XR hip RT min 2V(w/wo pelvis)* Signed By: [employer] Other XR hip RT min 2V(w/wo pelvis)* 03/27/23 [facility] [employer] Other Woo 02-11-2023 L ----- Specimen: [id number] Received: 02/11/23 Status: EHSAN Hutton Num: [id number] Spec Type: Surgical Subm Dr: Darek Chang MD Tissues: A Femoral Head - Other than Fracture (RT HIP) Procedures: HE/2, Gross/Micro L3, Decalcification Age/ Patient Sex Location Account Attending Physician Julia Villeda 72/F [place] [id number] Darek Chang MD SPEC NUM: [id number] RECD: 02/11/23 STATUS: EHSAN CHARISSA NUM: [id number] RICK: 02/11/[address] [facility] [address]: Darek Chang MD ENTERED: 02/11/[address] [facility] [address]: KELLI TYPE: Surgical DEPT: S ORDERED: HE/2, Gross/Micro L3, Decalcification ORDERED: HE/2, Gross/Micro L3, Decalcification Pathological Diagnosis Right hip bone and tissue, right hip total arthroplasty: - Gross examination only, see the gross description Clinical Information DJD right hip Gross Description Received in formalin labeled with the patient's name, date of and bone and tissue is a 6.0 x 5.0 x 4.8 cm femoral head with a detached 10.3 x 8.5 x 3.3 cm aggregate of encarnacion-red bone and soft tissue. The femoral head has a smooth to granular encarnacion-preciado articular surface with nodularity identified. No eburnation is noted. The cut surface is yellow-encarnacion to red, trabecular with thinning of the articular cartilage identified. A gross photo is taken. Gross examination only. CPT Codes 30562 Specimen: [id number] Received: 02/11/23 Status: EHSAN Charissa Num: [id number] Spec Type: Surgical Subm Dr: Darek Chang MD Tissues: A Femoral Head - Other than Fracture (RT HIP) Procedures: HE/2, Gross/Micro L3, Decalcification Patient: Julia Villeda [id number] (Continued) Specimen: [id number] Received: 02/11/23 (Continued) Signed (signature on file) Lukas Almanzar MD 02/17/23 1359 Specimen: [id number] Received: 02/11/23 Status: EHSAN Hutton Num: [id number] Spec Type: Surgical Subm Dr: Darek Chang MD Tissues: A Femoral Head - Other than Fracture (RT HIP) Procedures: HE/2, Gross/Micro L3, Decalcification Patient: Julia Villeda [id number] (Continued) Specimen: [id number] Received: 02/11/23 (Continued) Gross Photo Specimen: [id number] Received: 02/11/23 Status: EHSAN Hutton Num: [id number] Spec Type: Surgical Subm Dr: Darek Chang MD Tissues: A Femoral Head - Other than Fracture (RT HIP) Procedures: HE/2, Gross/Micro L3, Decalcification Patient: Edwin Villedafeliberto Odom [id number] (Continued) Signed (signature on file) Lukas Almanzar MD 02/17/23 1359 [facility] XR hip RT 1Von 02-11-2023 XR hip RT 1V [address] [address] XRay Report Signed Patient: Julia Villeda MR#: [id number] : 1950 Acct:[id number] Age/Sex: 72 / F ADM Date: 02/11/23 Loc: [place] Room: Type: [facility] Attending Dr: Darek Chang II, MD Copies to: Darek Chang MD Ordering Provider: Darek Chang MD Date of Service: 02/11/23 XR/XR hip RT 1V: ANTERIOR HIP XR hip RT 1V 02/11/2023 12:18 PM SIGNS AND SYMPTOMS: Right total anterior hip arthroplasty hardware placement PROTOCOL: Intraoperative views of the right hip COMPARISON: 06/20/2022 FINDINGS: Intraoperative views of the right hip demonstrate placement of total right hip arthroplasty hardware. There is no hardware complication or malalignment. Cumulative Air Kerma in mGy: 9.15 mGy XR/XR hip RT 1V IMPRESSION: Intraoperative views of the right hip demonstrate placement of total right hip arthroplasty hardware. There is no hardware complication or malalignment. Impression dictated by: Gene Cummings M.D.02/11/2023 2:49 PM Dictation Location: [place] [address] Transcribed By: [facility] 02/11/23 1449 Dictated By: Gene Cummings II, MD 02/11/23 1448 Signed By: 02/11/23 1449 Normal [facility] XR low pelvis w/RT x-table h ipon 02-11-2023 XR low pelvis w/RT x-table hip [facility] [address] XRay Report Signed Patient: Julia Villeda MR#: [id number] : 1950 Acct:[id number] Age/Sex: 72 / F ADM Date: 02/11/23 Loc: [place] Room: Type: [facility] Attending Dr: Darek Chang II, MD Copies to: Darek Chang MD Ordering Provider: Darek Chang MD Date of Service: 02/11/23 XR/XR low pelvis w/RT x-table hip: Total Hip, due in PACU Right hip 2 views. Reason for exam: Status post right RADHA. COMPARISON: None. FINDINGS: Soft tissues demonstrate postoperative changes. No hardware complication. XR/XR low pelvis w/RT x-table hip IMPRESSION: No evidence of hardware complication. Impression dictated by: Cj Mercado Jr., Juan02/11/2023 3:44 PM Dictation Location: [place] [address] Transcribed By: [facility] 02/11/23 154 Dictated By: Cj Mercado Jr, DO 02/11/23 1544 Signed By: 02/11/23 1544 [facility] Basic Metabolic Panelon 08- Anion gap [Moles/Vol] 10.7 mmol/L Normal 6.0-15.0 [facility] Comment on above: Performed By: #### H S TROP #### [facility] [address] Calcium [Mass/Vol] 9.6 mg/dL Normal 8.6-10.3 [facility] Comment on above: Result Comment: PERF ORMED BY: [place] [address] PATHOLOGIST FRAME CLEANER JAKE SAN M.D. Performed By: #### H S TROP #### [facility] [address] [place] [address] [place] Chloride [Moles/Vol] 101 mmol/L Normal 98-107 [facility] Comment on above: Performed By: #### H S TROP #### [address] CO2 [Moles/Vol] 31.3 mmol/L High 21.0-31.0 [facility] Comment on above: Performed By: #### H S TROP #### [facility] [address] [place] [address] [place] Creatinine [Mass/Vol] 0.72 mg/dL Normal 0.60-1.20 [facility] Comment on above: Performed By: #### H S TROP #### [facility] [address] [place] [address] [place] GFR/1.73 sq M.predicted MDRD (S/P/Bld) [Vol rate/Area] mL/min/{1.73_m2} [facility] Comment on above: Performed By: #### H S TROP #### [facility] [address] Glucose [Mass/Vol] 93 mg/dL Normal 70-100 [facility] Comment on above: Result Comment: [facility] Glucose Reference Range is dependent on time and content of last meal. Glucose of more than 200 mg/dL in a nonstressed, ambulatory subject supports the diagnosis of Diabetes Mellitus. ADA recommended reference range Performed By: #### H S TROP #### [facility] [address] Potassium [Moles/Vol] 4.0 mmol/L Normal 3.5-5.1 [facility] Comment on above: Performed By: #### H S TROP #### [facility] [address] Sodium [Moles/Vol] 139 mmol/L Normal 136-145 [facility] Comment on above: Performed By: #### H S TROP #### [facility] [address] Urea nitrogen [Mass/Vol] 14 mg/dL Normal 7-25 [facility] Comment on above: Performed By: #### H S TROP #### [facility] [address] Basophils Auto (Bld) [#/Vol] Ordered By: Darek Chang on 01-29-2023 Basophils (Bld) [#/Vol] 0.0 10*3/uL 0.0-0.2 [facility] Basophils/100 WBC Auto (Bld) Ordered By: Darek Chang on 01-29-2023 Basophils/100 WBC (Bld) 0.6 % . [facility] Bilirubin Test strip Ql (U)O rdered By: Darek Chang on 01-29-2023 Bilirubin Ql (U) Negative Negative [facility] Calcium [Mass/volume] in Ser um or PlasmaOrdered By: Darek Chang on 01-29-2023 Calcium [Mass/Vol] 9.6 mg/dL 8.6-10.3 [facility] Carbon dioxide, total [Moles /volume] in Serum or PlasmaOrdered By: Darek Chang on 01-29-2023 CO2 [Moles/Vol] 31.3 mmol/L 21.0-31.0 [facility] Chloride [Moles/volume] in S rubia or PlasmaOrdered By: Darek Chang on 01-29-2023 Chloride [Moles/Vol] 101 mmol/L 98-107 [facility] Color Auto (U)Ordered By: Kelsey Chang on 01-29-2023 Color (U) Yellow Yellow [facility] Complete Blood Count Auto Di ffon 01-29-2023 Basophils (Bld) [#/Vol] 0.0 10*3/uL Normal 0.0-0.2 [facility] Comment on above: Result Comment: PERF ORMED BY: [place] [address] PATHOLOGIST FRAME CLEANER JAKE SAN M.D. Performed By: #### H S TROP #### [facility] [address] [place] [address] Basophils/100 WBC (Bld) 0.6 % Normal . [facility] Comment on above: Performed By: #### H S TROP #### [facility] [address] [place] [address] [place] Eosinophils (Bld) [#/Vol] 0.1 10*3/uL Normal 0.0-0.45 [facility] Comment on above: Performed By: #### H S TROP #### [facility] [address] [place] [address] Eosinophils/100 WBC (Bld) 2.3 % Normal . [facility] Comment on above: Performed By: #### H S TROP #### [facility] [address] [place] [address] Erythrocyte distribution width (RBC) [Ratio] 14.7 % Normal 11.9-15.3 [facility] Comment on above: Performed By: #### H S TROP #### [address] Hematocrit (Bld) [Volume fraction] 36.5 % Normal 34.0-46.4 [facility] Comment on above: Performed By: #### H S TROP #### [facility] [address] Hemoglobin (Bld) [Mass/Vol] 12.2 g/dL Normal 11.8-15.4 [facility] Comment on above: Performed By: #### H S TROP #### [address] Lymphocytes (Bld) [#/Vol] 1.9 10*3/uL Normal 1.00-4.8 [facility] Comment on above: Performed By: #### H S TROP #### [address] Lymphocytes/100 WBC (Bld) 32.7 % Normal . [facility] Comment on above: Performed By: #### H S TROP #### [address] MCH (RBC) [Entitic mass] 27.3 pg Normal 24.7-34.3 [facility] Comment on above: Performed By: #### H S TROP #### [address] MCV (RBC) [Entitic vol] 81.8 fL Normal 80-100 [facility] Comment on above: Performed By: #### H S TROP #### [address] Mean Corpuscular HGB Conc 33.4 g/dL Normal 32.0-35.0 [facility] Comment on above: Performed By: #### H S TROP #### [place] [address] [place] Monocytes (Bld) [#/Vol] 0.5 10*3/uL Normal 0.0-0.8 [facility] Comment on above: Performed By: #### H S TROP #### [place] [address] [place] Monocytes/100 WBC (Bld) 9.0 % Normal . [facility] Comment on above: Performed By: #### H S TROP #### [place] [address] Neutrophils (Bld) [#/Vol] 3.2 10*3/uL Normal 1.8-7.7 [facility] Comment on above: Performed By: #### H S TROP #### [address] Neutrophils/100 WBC (Bld) 55.4 % Normal . [facility] Comment on above: Performed By: #### H S TROP #### [address] NRBC% 0.1 /100{WBC} Normal 0-0.5 [facility] Comment on above: Performed By: #### H S TROP #### [address] Platelet mean volume (Bld) [Entitic vol] 8.0 fL Normal 6.3-10.7 [facility] Comment on above: Performed By: #### H S TROP #### [address] Platelets (Bld) [#/Vol] 263 10*3/uL Normal 150-450 [facility] Comment on above: Performed By: #### H S TROP #### [address] RBC (Bld) [#/Vol] 4.46 10*6/uL Normal 3.60-5.00 [facility] Comment on above: Performed By: #### H S TROP #### [address] WBC (Bld) [#/Vol] 5.8 10*3/uL Normal 3.8-11.6 [facility] Comment on above: Performed By: #### H S TROP #### [address] Creatinine [Mass/volume] in Serum or PlasmaOrdered By: Darek Chang on 01-29-2023 Creatinine [Mass/Vol] 0.72 mg/dL 0.60-1.20 [facility] Eosinophils Auto (Bld) [#/Vo l]Ordered By: Darek Chang on 01-29-2023 Eosinophils (Bld) [#/Vol] 0.1 10*3/uL 0.0-0.45 [facility] Eosinophils/100 WBC Auto (Bl d)Ordered By: Darek Chang on 01-29-2023 Eosinophils/100 WBC (Bld) 2.3 % . [facility] Erythrocyte distribution wid th Auto (RBC) [Ratio]Ordered By: Darek Chang on 01-29-2023 Erythrocyte distribution width (RBC) [Ratio] 14.7 % 11.9-15.3 [facility] Fructosamineon 01-29-2023 Fructosamine 235 umol/L Normal 0-285 [facility] Comment on above: Result Comment: Publ ished reference interval for apparently healthy subjects between age 20 and 60 is 205 - 285 umol/L and in a poorly controlled diabetic population is 228 - 563 umol/L with a mean of 396 umol/L. Performed at: [facility] [address] [id number] [employer] Work[employer] Head: Billy Stringer PhD, Phone: [phone] PERFORMED BY: [place] [address] PATHOLOGIST FRAME CLEANER JAKE SAN M.D. Performed By: #### H S TROP #### [address] Fructosamine [Moles/volume] in Serum or PlasmaOrdered By: Darek Chang on 01-29-2023 Fructosamine [Moles/Vol] 235 umol/L 0-285 [facility] Comment on above: Published reference interval for apparently healthysubjects between age 20 and 60 is 205 - 285 umol/L and in apoorly controlled diabetic population is 228 - 563 umol/Lwith a mean of 396 umol/L.Performed at: [facility] [address] [id number] Director: Billy Stringer PhD, Phone: [phone] Glucose [Mass/volume] in Ser um or PlasmaOrdered By: Darek Chang on 01-29-2023 Glucose [Mass/Vol] 93 mg/dL 70-100 [facility] Comment on above: ADA recommended refe rence rangeRandom Glucose Reference Range is dependent on time and content of last meal. Glucose of more than 200 mg/dL in a nonstressed, ambulatory subject supports the diagnosis of Diabetes Mellitus. Hematocrit Auto (Bld) [Volum e fraction]Ordered By: Darek Chang on 01-29-2023 Hematocrit (Bld) [Volume fraction] 36.5 % 34.0-46.4 [facility] Hemoglobin [Mass/volume] in BloodOrdered By: Darek Chang on 01-29-2023 Hemoglobin (Bld) [Mass/Vol] 12.2 g/dL 11.8-15.4 [facility] Ketones Auto test strip (U) [Mass/Vol]Ordered By: Darek Chang on 01-29-2023 Ketones (U) [Mass/Vol] Negative Negative [facility] Leukocytes [#/volume] correc arnoldo for nucleated erythrocytes in Blood by Automated counOrdered By: Darek Chang on 01-29-2023 WBC corrected for nucl RBC Auto (Bld) [#/Vol] 5.8 10*3/uL 3.8-11.6 [facility] Lymphocytes Auto (Bld) [#/Vo l]Ordered By: Darek Chang on 01-29-2023 Lymphocytes (Bld) [#/Vol] 1.9 10*3/uL 1.00-4.8 [facility] Lymphocytes/100 WBC Auto (Bl d)Ordered By: Darek Chang on 01-29-2023 Lymphocytes/100 WBC (Bld) 32.7 % . [facility] MCH Auto (RBC) [Entitic mass ]Ordered By: Darek Chang on 01-29-2023 MCH (RBC) [Entitic mass] 27.3 pg 24.7-34.3 [facility] MCHC Auto (RBC) [Mass/Vol]Or dered By: Darek Chang on 01-29-2023 MCHC (RBC) [Mass/Vol] 33.4 g/dL 32.0-35.0 [facility] MCV Auto (RBC) [Entitic vol] Ordered By: Darek Chang on 01-29-2023 MCV (RBC) [Entitic vol] 81.8 fL 80-100 [facility] Monocytes Auto (Bld) [#/Vol] Ordered By: Darek Chang on 01-29-2023 Monocytes (Bld) [#/Vol] 0.5 10*3/uL 0.0-0.8 [facility] Monocytes/100 WBC Auto (Bld) Ordered By: Darek Chang on 01-29-2023 Monocytes/100 WBC (Bld) 9.0 % . [facility] Neutrophils Auto (Bld) [#/Vo l]Ordered By: Darek Chang on 01-29-2023 Neutrophils (Bld) [#/Vol] 3.2 10*3/uL 1.8-7.7 [facility] Neutrophils/100 WBC Auto (Bl d)Ordered By: Darek Chang on 01-29-2023 Neutrophils/100 WBC (Bld) 55.4 % . [facility] Nitrite Test strip Ql (U)Ord ered By: Darek Chang on 01-29-2023 Nitrite Ql (U) Negative Negative [facility] No Panel InformationOrdered By: Darek Chang on 01-29-2023 Estimated GFR (CKD-EPI) > 60.0 mL/Min [facility] Creatinine Clearance (Chem N/A [facility] Nucleated erythrocytes [Pres ence] in Blood by Automated countOrdered By: Darek Chang on 01-29-2023 Nucleated RBC Auto Ql (Bld) 0.1 /100{WBC} 0-0.5 [facility] PST Type and Screenon 2022 ABO and Rh group Nom (Bld) Blood group O Rh(D) positive Normal [facility] Comment on above: Order Comment: Date of Surgery: 20230211 Result Comment: PERF ORMED BY: [facility] [address] [place] [address] PATHOLOGIST FRAME CLEANER JAKE SAN M.D. Platelet mean volume Auto (B ld) [Entitic vol]Ordered By: Darek Chang on 01-29-2023 Platelet mean volume (Bld) [Entitic vol] 8.0 fL 6.3-10.7 [facility] Platelets Auto (Bld) [#/Vol] Ordered By: Darek Chang on 01-29-2023 Platelets (Bld) [#/Vol] 263 10*3/uL 150-450 [facility] Potassium [Moles/volume] in Serum or PlasmaOrdered By: Darek Chang on 01-29-2023 Potassium [Moles/Vol] 4.0 mmol/L 3.5-5.1 [facility] Protein Auto test strip (U) [Mass/Vol]Ordered By: Darek Chang on 01-29-2023 Protein (U) [Mass/Vol] Negative Negative [facility] RBC Auto (Bld) [#/Vol]Ordere d By: Darek Chang on 01-29-2023 RBC (Bld) [#/Vol] 4.46 10*6/uL 3.60-5.00 [facility] Serum or plasma anion gap de terminationOrdered By: Darek Chang on 01-29-2023 Anion gap [Moles/Vol] 10.7 mmol/L 6.0-15.0 [facility] Sodium [Moles/volume] in Ser um or PlasmaOrdered By: Darek Chang on 01-29-2023 Sodium [Moles/Vol] 139 mmol/L 136-145 [facility] Specific gravity Auto test s trip (U) [Rel density]Ordered By: Darek Chang on 01-29-2023 Specific gravity (U) [Rel density] 1.007 1.001-1.030 [facility] Urea nitrogen [Mass/volume] in Serum or PlasmaOrdered By: Darek Chang on 01-29-2023 Urea nitrogen [Mass/Vol] 14 mg/dL 7-25 [facility] Urinalysison 01-29-2023 Appearance (U) Clear Normal Clear [facility] Comment on above: Order Comment: Date of Surgery: 20230211 Performed By: #### U A ####[facility] [address] [place] [address] [facility] Bilirubin,Urine Negative Normal Negative [facility] Comment on above: Order Comment: Date of Surgery: 20230211 Performed By: #### U A ####[place] [address] [place] [address] [facility] Color (U) Yellow Normal Yellow [facility] Comment on above: Order Comment: Date of Surgery: 20230211 Performed By: #### U A ####[place] [address] [place] [address] [facility] Glucose Ql (U) Normal Normal Normal [facility] Comment on above: Order Comment: Date of Surgery: 20230211 Performed By: #### U A ####[address] [address] [facility] Ketones Ql (U) Negative Normal Negative [facility] Comment on above: Order Comment: Date of Surgery: 20230211 Performed By: #### U A ####[address] [address] [facility] Leukocyte esterase Test strip Ql (U) Negative Normal Negative [facility] Comment on above: Order Comment: Date of Surgery: 20230211 Performed By: #### U A ####[address] [address] [facility] Nitrite,Urine Negative Normal Negative [facility] Comment on above: Order Comment: Date of Surgery: 20230211 Performed By: #### U A ####[address] [address] [facility] Occult Blood,Urine Negative Normal Negative [facility] Comment on above: Order Comment: Date of Surgery: 20230211 Result Comment: PERF ORMED BY: [facility] [address] [place] [address] PATHOLOGIST FRAME CLEANER JAKE SAN M.D. Performed By: #### U A ####[address] [address] [facility] pH (U) 7.5 [pH] Normal 5.0-9.0 [facility] Comment on above: Order Comment: Date of Surgery: 20230211 Performed By: #### U A ####[address] [address] [facility] Protein,Urine Negative Normal Negative [facility] Comment on above: Order Comment: Date of Surgery: 20230211 Performed By: #### U A ####[facility] [address] [place] [id number] [facility] Specificy [place],Urine 1.007 Normal 1.001-1.030 [facility] Comment on above: Order Comment: Date of Surgery: 20230211 Performed By: #### U A ####[facility] [place] [id number] [facility] Urobilinogen,Urine Normal Normal Normal [facility] Comment on above: Order Comment: Date of Surgery: 20230211 Performed By: #### U A ####[place] [id number] [place] [id number] [facility] Urine clarity by refractomet ry automatedOrdered By: Darek Chang on 01-29-2023 Clarity Refractometry automated (U) Clear Clear [facility] Urine glucose measurement by automated test strip (mass/volume)Ordered By: Darek Chang on 01-29-2023 Glucose Auto test strip (U) [Mass/Vol] Normal mg/dL Normal [facility] Urine hemoglobin detection b y automated test stripOrdered By: Darek Chang on 01-29-2023 Hemoglobin Auto test strip Ql (U) Negative Negative [facility] Urine leukocyte esterase det ection by automated test stripOrdered By: Darek Chang on 01-29-2023 Leukocyte esterase Auto test strip Ql (U) Negative Negative [facility] Urobilinogen Auto test strip (U) [Mass/Vol]Ordered By: Darek Chang on 01-29-2023 Urobilinogen (U) [Mass/Vol] Normal mg/dL Normal [facility] WBC Auto (Bld) [#/Vol]Ordere d By: Darek Chang on 01-29-2023 WBC (Bld) [#/Vol] 5.8 10*3/uL 3.8-11.6 [facility] pH Auto test strip (U)Ordere d By: Darek Chang on 01-29-2023 pH (U) 7.5 [pH] 5.0-9.0 [facility] ECH echo transthoracicon ECH echo transthoracic [facility] Main [place] [address] [place] [address] Echocardiogram Signed Patient: Julia Villeda MR#: [id number] : 1950 Acct:[id number] Age/Sex: 72 / F ADM Date: 12/27/22 Loc: Room: Type: [facility] Attending Dr: Nancy Jha DO Ordering Provider: Nancy Jha DO Date of Service: 12/27/22/ [facility] echo transthoracic: Ventricular premature depolarization Copies to: Ubaldo French MD, FACC Nancy Jha DO Weight: 234 lb Performed By: Steffanie Jimenez RDCS BSA: 2.2 m2 BP: 155/77 mmHg HR: 79 Reason For Study: Ventricular premature depolarization History: Hypertension, Family history CAD Interpretation Summary The left ventricular size, thickness and function are normal Ejection Fraction = 60-65%. A variety of Doppler measurements indicate impaired left ventricular relaxation, which is associated with grade I/IV or mild diastolic dysfunction. There is trace mitral regurgitation. There is trace tricuspid regurgitation. There is no prior echocardiogram noted for this patient. Procedure/Quality: A two-dimensional transthoracic echocardiogram with color flow and Doppler was performed. The study was technically good in quality. There is no prior echocardiogram noted for this patient. Left Ventricle: The left ventricular size, thickness and function are normal. Ejection Fraction = 60-65%. A variety of Doppler measurements indicate impaired left ventricular relaxation, which is associated with grade I/IV or mild diastolic dysfunction. Left Atrium: The left atrium appears normal in size. The atrial septum appears normal. Right Atrium: The right atrium appears normal in size. Right Ventricle: The right ventricular size, thickness and function are normal. Aortic Valve: The aortic valve is trileaflet. Mitral Valve: The mitral valve is mildly sclerotic. There is trace mitral regurgitation. Tricuspid Valve: The tricuspid valve is normal. There is trace tricuspid regurgitation. Pulmonic Valve: The pulmonic valve is not well seen, but is grossly normal. Arteries: The aortic root is normal size. Pericardium/Pleura: No pericardial effusion seen. There is no pleural effusion. IVC/Hepatic Viens: The IVC is normal in size with an inspiratory collapse of greater then 50%, suggesting normal right atrial pressure. Miscellaneous: No thrombus, vegetation or mass is seen. Measurements with Normals IVSd: 1.1 cm (0.7-1.1 cm)LVIDd: 4.5 cm (3.7-5.4 cm) LVPWd: 0.89 cm (0.7-1.1 cm)LVIDs: 2.9 cm (2.3-3.6 cm) LA dimension: 3.6 cm (2.3-4.0 cm)Ao root diam: 3.6 cm(2.0-3.6 cm) asc Aorta Diam: 3.4 cm(2.1-3.4cm) Doppler with Normals RVSP(TR): 23.9 mmHg (18-35mmHg) LV V1 max: 102.3 cm/sec (0.7-1.7m/s)MV E max rossy: 72.8 cm/sec(0.8-1.3m/s) MV A max rossy: 96.0 cm/sec(0.0-0.0m/s) MV E/A: 0.76 (<1.5) MMode/2D Measurements Calculations RVDd: 2.7 cm FS: 34.9 % Ao root area: LVOT diam: 2.3 cm TAPSE: 2.0 cm EDV(Teich): 10.4 cm2 LVOT area: 4.1 cm2 91.4 ml ESV(Teich): 32.7 ml EF(Teich): 64.3 % __ LVLd ap4: 7.5 cm SV(MOD-sp4): LAV(MOD-sp4): LA A2 area: 21.7 cm2 EDV(MOD-sp4): 58.2 ml 46.3 ml 98.3 ml LAV(MOD-sp2): LA A4 area: 17.4 cm2 LVLs ap4: 6.2 cm 65.7 ml LA length (vol): ESV(MOD-sp4): 5.5 cm 40.1 ml LA vol: 58.7 ml EF(MOD-sp4): LA vol index: 59.2 % 27.0 ml/m2 Doppler Measurements Calculations MV dec time: E/E' lat: 8.2 MV dec slope: Ao V2 max: 0.21 sec E/E' med: 12.4 138.8 cm/sec 349.1 cm/sec2 Ao max P.7 mmHg Ao mean P.9 mmHg Ao V2 mean: 94.1 cm/sec Ao V2 VTI: 29.1 cm FELICIA(I,D): 3.1 cm2 FELICIA(V,D): 3.0 cm2 __ LV V1 max PG: TV max PG: TR max rossy: 4.2 mmHg 21.0 mmHg 228.8 cm/sec LV V1 mean PG: TR max P.9 mmHg 2.1 mmHg RAP systole: 3.0 mmHg LV V1 mean: 67.6 cm/sec LV V1 VTI: 22.3 cm ___ Transcribed By: SCV Performed At: 12/27/22 1052 Signed By: Ubaldo French MD, [facility] 12/27/22 1445 Normal [facility] A1C with Estimated Average G justine 12-20-2022 Glucose [Mass/Vol] 123 mg/dL Normal [facility] Comment on above: Order Comment: Date of Surgery: 20230211 Result Comment: PERF ORMED BY: [facility] [address] [place] [address] PATHOLOGIST FRAME CLEANER JAKE SAN M.D. Performed By: #### A 1C WTH eA, [id number], HGB, CUMRSA, ALB ####[facility] [id number] [place] [address] [facility]#### NICOTINE ####[facility] , HbA1c (Bld) [Mass fraction] 5.9 % High 4.3-5.6 [facility] Comment on above: Order Comment: Date of Surgery: [id number] Result Comment: Incr eased risk for diabetes: 5.7 - 6.4 diabetes: >6.4 glycemic control for adults with diabetes: <7.0 Performed By: #### A 1C WTH eA, [id number], HGB, CUMRSA, ALB ####[facility]#### NICOTINE ####[facility] , Albumin Levelon 12-20-2022 Albumin [Mass/Vol] 4.2 g/dL Normal 3.5-5.7 [facility] Comment on above: Order Comment: Date of Surgery: [id number] Performed By: #### A 1C WTH eA, [id number], HGB, CUMRSA, ALB ####[facility] [place] [id number] [facility]#### NICOTINE ####[facility] , Albumin [Mass/volume] in Ser um or Plasma by Bromocresol green (BCG) dye binding methoOrdered By: Darek Chang on 12-20-2022 Albumin BCG dye [Mass/Vol] 4.2 g/dL 3.5-5.7 [facility] Cotinine [Mass/volume] in Se rum or PlasmaOrdered By: Darek Chang on 12-20-2022 Cotinine [Mass/Vol] <1.0 ng/mL . [facility] Comment on above: This test was develo ped and its performance characteristicsdetermined by [facility]. It has not been cleared orapproved by the Food and Drug Administration.Cotinine levels greater than 20.0 are consistent with theuse of tobacco or tobacco cessation products.Performed at: - [facility] [id number] Director: Jonathan Buckley MD, Phone: [phone] Glucose mean value [Mass/vol ume] in Blood Estimated from glycated hemoglobinOrdered By: Darek Chang on 12-20-2022 Average glucose Estimated from glycated hemoglobin (Bld) [Mass/Vol] 123 mg/dL [facility] Hemoglobinon 12-20-2022 Hemoglobin (Bld) [Mass/Vol] 11.8 g/dL Normal 11.8-15.4 [facility] Comment on above: Order Comment: Date of Surgery: [id number] Result Comment: PERF ORMED BY: [address] [address] PATHOLOGIST FRAME CLEANER JAKE SAN M.D. Performed By: #### A 1C WTH eA, [id number], HGB, CUMRSA, ALB ####[address]#### NICOTINE ####[facility] , Hemoglobin A1c percentageOrd ered By: Darek Chang on 12-20-2022 HbA1c (Bld) [Mass fraction] 5.9 % 4.3-5.6 [facility] Comment on above: Increased risk for d iabetes: 5.7 - 6.4diabetes: >6.4glycemic control for adults with diabetes: <7.0 Hemoglobin [Mass/volume] in BloodOrdered By: Darek Chang on 12-20-2022 Hemoglobin (Bld) [Mass/Vol] 11.8 g/dL 11.8-15.4 [facility] MRSA Cultureon 12-20-2022 MRSA Culture Reason for Exam Righ t hip pain;Other shelter (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;Age-re Nasal Reason for Exam: Right hip pain;Other shelter (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;Age-re : Nasal No MRSA Isolated 2 Days PERFORMED BY: [address] [place] [address] PATHOLOGIST FRAME CLEANER JAKE SAN M.D. Normal [facility] Comment on above: Performed By: #### A 1C WTH eA, [id number], HGB, CUMRSA, ALB ####[place] [id number] [facility]#### NICOTINE ####[facility] , Nicotine [Mass/volume] in Se rum or PlasmaOrdered By: Darek Chang on 12-20-2022 Nicotine [Mass/Vol] <1.0 ng/mL . [facility] Comment on above: This test was develo ped and its performance characteristicsdetermined by [facility]. It has not been cleared orapproved by the Food and Drug Administration.Nicotine levels greater than 2.0 are consistent with theuse of tobacco or tobacco cessation products. Nicotine/Cotinine Bloodon Cotinine, Blood <1.0 Normal . [facility] Comment on above: Order Comment: Date of Surgery: 20230211 Result Comment: This test was developed and its performance characteristics determined by [facility]. It has not been cleared or approved by the Food and Drug Administration. Cotinine levels greater than 20.0 are consistent with the use of tobacco or tobacco cessation products. Performed at: [facility] [address] [id number] Loft Worker Head: Jonathan Buckley MD, Phone: [phone] PERFORMED BY: [facility] [address] [place] [address] PATHOLOGIST FRAME CLEANER JAKE SAN M.D. Performed By: #### A 1C WT eA, [id number], HGB, CUMRSA, ALB ####[facility] [place] [address] [facility]#### NICOTINE ####[facility] , Nicotine, Blood <1.0 Normal . [facility] Comment on above: Order Comment: Date of Surgery: 20230211 Result Comment: This test was developed and its performance characteristics determined by [facility]. It has not been cleared or approved by the Food and Drug Administration. Nicotine levels greater than 2.0 are consistent with the use of tobacco or tobacco cessation products. Performed By: #### A 1C WTH eA, [id number], HGB, CUMRSA, ALB ####[facility] [place] [address] [place]#### NICOTINE ####[facility] , Vitamin D 25 Hydroxy Totalon 12-20-2022 Vitamin D 25 Hydroxy Total 71.4 ng/mL Normal 30-100 [facility] Comment on above: Order Comment: Date of Surgery: 20230211 Result Comment: MARTI MIN D STATUS 25(OH)VITAMIN D RANGE (ng/mL) Deficient <20 Insufficient 20 to <30 Sufficient 30 to 100 Reference: Rudy Campbell, Rissa COOK, et al. Evaluation,treatment, and prevention of vitamin D deficiency; an Endocrine Society clinical practice guideline. JCEM. 2010; 96(7):1911-30. PERFORMED BY: [place] [address] PATHOLOGIST FRAME CLEANER JAKE SAN M.D. Performed By: #### A 1C WTH eA, [id number], HGB, CUMRSA, ALB ####[facility] [address]#### NICOTINE ####[facility] , Vitamin D+Metabolites [Mass/ volume] in Serum or PlasmaOrdered By: Darek Chang on 12-20-2022 Vitamin D+Metabolites [Mass/Vol] 71.4 ng/mL 30-100 [facility] Comment on above: VITAMIN D STATUS 25( OH)VITAMIN D RANGE (ng/mL) Deficient <20 Insufficient 20 to <30Sufficient 30 to 100Reference: Rudy Campbell, Rissa COOK, et al. Evaluation,treatment, and prevention of vitamin D deficiency; an Endocrine Society clinical practice guideline. JCEM. 2010; 96(7):1911-30. Wound methicillin resistant Staphylococcus aureus (MRSA) cultureOrdered By: Darek Chang on 12-20-2022 MRSA isol Org specific cx Ql (Unsp spec) No MRSA Isolated 2 Days [facility] CA holter monitor recordingo n 12-07-2022 CA holter monitor recording [facility] Main [place] [id number] Holter Monitor Report Signed Patient: Julia Villeda MR#: [id number] : 1950 Acct:[id number] Age/Sex: 72 / F ADM Date: 11/29/22 Loc: Room: Type: [facility] Attending Dr: Nancy Jha DO Copies to: Ubaldo French MD, [facility] Nancy Jha DO Ordering Provider: Nancy Jha DO Date of Service: 11/29/22 CA/CA holter monitor recording: [id number] ORDERED BY: Nancy Jha DO A 72-year-old patient with palpitations. 1. The rhythm is sinus throughout. Average heart rate 81 beats per minute. Minimum heart rate 57 beats per minute, sinus bradycardia at 5:55 a.m. Maximum heart rate 133 beats per minute, sinus tachycardia at 4:11 p.m. 2. Large volume of isolated PVCs. There are 1730 beats noted, representing 1.5% of total QRS complexes. 3. Eight isolated PACs were seen. 4. No pauses exceeding 2 seconds were noted. 5. No symptoms in the patient's diary. 6. The patient appeared to have right bundle branch block during the whole recording. CONCLUSIONS: This is a 24-hour Holter monitor that demonstrated normal sinus rhythm mechanism throughout. Average heart rate 81 beats per minute. Frequent isolated PVCs, representing 1.5% of total QRS complexes and rare PACs were seen, none were symptomatic. No pauses exceeding 2 seconds were noted. No previous studies are available for comparison. Transcribed By: NTS 12/07/221958 Dictated By: Ubaldo French MD, [facility] 12/07/22 171 Signed By: 12/10/22 0911 Normal [facility] Basophils Auto (Bld) [#/Vol] Ordered By: Nancy Jha on 11-20-2022 Basophils (Bld) [#/Vol] 0.0 10*3/uL 0.0-0.2 [facility] Basophils/100 WBC Auto (Bld) Ordered By: Nancy Jha on 11-20-2022 Basophils/100 WBC (Bld) 0.7 % . [facility] Complete Blood Count Auto Di ffon 11-20-2022 Basophils (Bld) [#/Vol] 0.0 10*3/uL Normal 0.0-0.2 [facility] Comment on above: Result Comment: PERF ORMED BY: [facility] [address] [place] [address] PATHOLOGIST FRAME CLEANER JAKE SAN M.D. Performed By: #### C BC #### [address] Basophils/100 WBC (Bld) 0.7 % Normal . [facility] Comment on above: Performed By: #### C BC #### [address] Eosinophils (Bld) [#/Vol] 0.2 10*3/uL Normal 0.0-0.45 [facility] Comment on above: Performed By: #### C BC #### [address] Eosinophils/100 WBC (Bld) 4.2 % Normal . [facility] Comment on above: Performed By: #### C BC #### [address] Erythrocyte distribution width (RBC) [Ratio] 14.2 % Normal 11.9-15.3 [facility] Comment on above: Performed By: #### C BC #### [address] Hematocrit (Bld) [Volume fraction] 35.3 % Normal 34.0-46.4 [facility] Comment on above: Performed By: #### C BC #### [address] Hemoglobin (Bld) [Mass/Vol] 11.9 g/dL Normal 11.8-15.4 [facility] Comment on above: Performed By: #### C BC #### [address] Lymphocytes (Bld) [#/Vol] 1.8 10*3/uL Normal 1.00-4.8 [facility] Comment on above: Performed By: #### C BC #### [address] Lymphocytes/100 WBC (Bld) 35.8 % Normal . [facility] Comment on above: Performed By: #### C BC #### [address] MCH (RBC) [Entitic mass] 27.4 pg Normal 24.7-34.3 [facility] Comment on above: Performed By: #### C BC #### [address] MCV (RBC) [Entitic vol] 81.4 fL Normal 80-100 [facility] Comment on above: Performed By: #### C BC #### [address] Mean Corpuscular HGB Conc 33.6 g/dL Normal 32.0-35.0 [facility] Comment on above: Performed By: #### C BC #### [address] Monocytes (Bld) [#/Vol] 0.6 10*3/uL Normal 0.0-0.8 [facility] Comment on above: Performed By: #### C BC #### [address] Monocytes/100 WBC (Bld) 11.2 % Normal . [facility] Comment on above: Performed By: #### C BC #### [address] Neutrophils (Bld) [#/Vol] 2.4 10*3/uL Normal 1.8-7.7 [facility] Comment on above: Performed By: #### C BC #### [address] Neutrophils/100 WBC (Bld) 48.1 % Normal . [facility] Comment on above: Performed By: #### C BC #### [address] NRBC% 0.1 /100{WBC} Normal 0-0.5 [facility] Comment on above: Performed By: #### C BC #### [address] Platelet mean volume (Bld) [Entitic vol] 7.9 fL Normal 6.3-10.7 [facility] Comment on above: Performed By: #### C BC #### [facility] [address] Platelets (Bld) [#/Vol] 290 10*3/uL Normal 150-450 [facility] Comment on above: Performed By: #### C BC #### [facility] [address] RBC (Bld) [#/Vol] 4.34 10*6/uL Normal 3.60-5.00 [facility] Comment on above: Performed By: #### C BC #### [address] WBC (Bld) [#/Vol] 5.0 10*3/uL Normal 3.8-11.6 [facility] Comment on above: Performed By: #### C BC #### [address] Eosinophils Auto (Bld) [#/Vo l]Ordered By: Nancy Jha on 11-20-2022 Eosinophils (Bld) [#/Vol] 0.2 10*3/uL 0.0-0.45 [facility] Eosinophils/100 WBC Auto (Bl d)Ordered By: Nancy Jha on 11-20-2022 Eosinophils/100 WBC (Bld) 4.2 % . [facility] Erythrocyte distribution wid th Auto (RBC) [Ratio]Ordered By: Nancy Jha on 11-20-2022 Erythrocyte distribution width (RBC) [Ratio] 14.2 % 11.9-15.3 [facility] FE PROon 11-20-2022 % Iron Saturation 11.7 % Low 20-50 [facility] Comment on above: Performed By: #### C BC #### [address] Ferritin [Mass/Vol] 81.9 ng/mL Normal 11.0-306.8 [facility] Comment on above: Performed By: #### C BC #### [address] Iron [Mass/Vol] 42 ug/dL Low 50-212 [facility] Comment on above: Performed By: #### C BC #### [facility] [address] Total Iron Binding Capacity 358 ug/dL Normal 255-450 [facility] Comment on above: Performed By: #### C BC #### [facility] [address] Transferrin [Mass/Vol] 256 mg/dL Normal 203-362 [facility] Comment on above: Performed By: #### C BC #### [facility] [address] Ferritin [Mass/volume] in Se rum or PlasmaOrdered By: Nancy hJa on 11-20-2022 Ferritin [Mass/Vol] 81.9 ng/mL 11.0-306.8 [facility] Folate [Mass/volume] in Seru m or PlasmaOrdered By: Nancy Jha on 11-20-2022 Folate [Mass/Vol] 41.0 ng/mL >5.9 [facility] Comment on above: Folate reference ran ge: >5.9 ng/mlThe WHO technical consultation on folate and vitamin [id number] has determined that folate concentrations lessthan 4 ng/ml are considered deficient. Free T4 (Free Thyroxine)on 11-20-2022 Free T4 [Mass/Vol] 0.88 ng/dL Normal 0.61-1.12 [facility] Comment on above: Performed By: #### C BC #### [address] Hematocrit Auto (Bld) [Volum e fraction]Ordered By: Nancy Jha on 11-20-2022 Hematocrit (Bld) [Volume fraction] 35.3 % 34.0-46.4 [facility] Hemoglobin [Mass/volume] in BloodOrdered By: Nancy Jha on 11-20-2022 Hemoglobin (Bld) [Mass/Vol] 11.9 g/dL 11.8-15.4 [facility] Iron [Mass/volume] in Serum or PlasmaOrdered By: Nancy Jha on 11-20-2022 Iron [Mass/Vol] 42 ug/dL 50-212 [facility] Iron binding capacity [Mass/ volume] in Serum or PlasmaOrdered By: Nnacy Jha on 11-20-2022 Iron binding capacity [Mass/Vol] 358 ug/dL 255-450 [facility] Iron saturation [Mass Fracti on] in Serum or PlasmaOrdered By: Nancy Jha on 11-20-2022 Iron saturation [Mass fraction] 11.7 % 20-50 [facility] Leukocytes [#/volume] correc arnoldo for nucleated erythrocytes in Blood by Automated counOrdered By: Nancy Jha on 11-20-2022 WBC corrected for nucl RBC Auto (Bld) [#/Vol] 5.0 10*3/uL 3.8-11.6 [facility] Lymphocytes Auto (Bld) [#/Vo l]Ordered By: Nancy Jha on 11-20-2022 Lymphocytes (Bld) [#/Vol] 1.8 10*3/uL 1.00-4.8 [facility] Lymphocytes/100 WBC Auto (Bl d)Ordered By: Nancy Jha on 11-20-2022 Lymphocytes/100 WBC (Bld) 35.8 % . [facility] MCH Auto (RBC) [Entitic mass ]Ordered By: Nancy Jha on 11-20-2022 MCH (RBC) [Entitic mass] 27.4 pg 24.7-34.3 [facility] MCHC Auto (RBC) [Mass/Vol]Or dered By: Nancy Jha on 11-20-2022 MCHC (RBC) [Mass/Vol] 33.6 g/dL 32.0-35.0 [facility] MCV Auto (RBC) [Entitic vol] Ordered By: Nancy Jha on 11-20-2022 MCV (RBC) [Entitic vol] 81.4 fL 80-100 [facility] Magnesiumon 11-20-2022 Magnesium [Mass/Vol] 2.1 mg/dL Normal 1.9-2.7 [facility] Comment on above: Performed By: #### C BC #### [facility] [address] [place] [address] Magnesium [Mass/volume] in S rubia or PlasmaOrdered By: Nancy Jha on 11-20-2022 Magnesium [Mass/Vol] 2.1 mg/dL 1.9-2.7 [facility] Monocytes Auto (Bld) [#/Vol] Ordered By: Nancy Jha on 11-20-2022 Monocytes (Bld) [#/Vol] 0.6 10*3/uL 0.0-0.8 [facility] Monocytes/100 WBC Auto (Bld) Ordered By: Nancy Jha on 11-20-2022 Monocytes/100 WBC (Bld) 11.2 % . [facility] Neutrophils Auto (Bld) [#/Vo l]Ordered By: Nancy Jha on 11-20-2022 Neutrophils (Bld) [#/Vol] 2.4 10*3/uL 1.8-7.7 [facility] Neutrophils/100 WBC Auto (Bl d)Ordered By: Nancy Jha on 11-20-2022 Neutrophils/100 WBC (Bld) 48.1 % . [facility] Nucleated erythrocytes [Pres ence] in Blood by Automated countOrdered By: Nancy Jha on 11-20-2022 Nucleated RBC Auto Ql (Bld) 0.1 /100{WBC} 0-0.5 [facility] Platelet mean volume Auto (B ld) [Entitic vol]Ordered By: Nancy Jha on 11-20-2022 Platelet mean volume (Bld) [Entitic vol] 7.9 fL 6.3-10.7 [facility] Platelets Auto (Bld) [#/Vol] Ordered By: Nancy Jha on 11-20-2022 Platelets (Bld) [#/Vol] 290 10*3/uL 150-450 [facility] RBC Auto (Bld) [#/Vol]Ordere d By: Nancy Jha on 11-20-2022 RBC (Bld) [#/Vol] 4.34 10*6/uL 3.60-5.00 [facility] Thyroid Stim Hormone w/Rflxo n 11-20-2022 Thyroid Stim Hormone w/Rflx 0.69 u[iU]/mL Normal 0.45-5.33 [facility] Comment on above: Performed By: #### C BC #### [address] Thyrotropin [Units/volume] i n Serum or PlasmaOrdered By: Nancy Jha on 11-20-2022 TSH Qn 0.69 m[IU]/L 0.45-5.33 [facility] Thyroxine (T4) free [Mass/vo lume] in Serum or PlasmaOrdered By: Nancy Jha on 11-20-2022 Free T4 [Mass/Vol] 0.88 ng/dL 0.61-1.12 [facility] Transferrin [Mass/volume] in Serum or PlasmaOrdered By: Nancy Jha on 11-20-2022 Transferrin [Mass/Vol] 256 mg/dL 203-362 [facility] Vit. B12/Folate Profileon Cobalamin (Vitamin B12) [Mass/Vol] 430 pg/mL Normal 180-914 [facility] Comment on above: Performed By: #### V [id number] #### [address] Folate 41.0 ng/mL Normal >5.9 [facility] Comment on above: Result Comment: Jessica te reference range: >5.9 ng/ml The WHO technical consultation on folate and vitamin b12 deficiencies has determined that folate concentrations less than 4 ng/ml are considered deficient. PERFORMED BY: [place] [address] PATHOLOGIST FRAME CLEANER JAKE SAN M.D. Performed By: #### V [id number] #### [place] [id number] [facility] Vitamin B12 ser/plasOrdered By: Nancy Jha on 11-20-2022 Cobalamin (Vitamin B12) [Mass/Vol] 430 pg/mL 180-914 [facility] Vitamin D 25 Hydroxy Totalon 11-20-2022 Vitamin D 25 Hydroxy Total 63.9 ng/mL Normal 30-100 [facility] Comment on above: Result Comment: MARTI MIN D STATUS 25(OH)VITAMIN D RANGE (ng/mL) Deficient <20 Insufficient 20 to <30 Sufficient 30 to 100 Reference: Rudy Campbell, Rissa COOK, et al. Evaluation,treatment, and prevention of vitamin D deficiency; an Endocrine Society clinical practice guideline. JCEM. 2010; 96(7):1911-. PERFORMED BY: [address] [address] PATHOLOGIST FRAME CLEANER JAKE SAN M.D. Performed By: #### C #### [place] [id number] [facility] Vitamin D+Metabolites [Mass/ volume] in Serum or PlasmaOrdered By: Nancy Jha on 11-20-2022 Vitamin D+Metabolites [Mass/Vol] 63.9 ng/mL 30-100 [facility] Comment on above: VITAMIN D STATUS 25( [place])VITAMIN D RANGE (ng/mL) Deficient <20 Insufficient 20 to <30Sufficient 30 to 100Reference: Rudy Campbell, Rissa COOK, et al. Evaluation,treatment, and prevention of vitamin D deficiency; an Endocrine Society clinical practice guideline. JCEM. 2010; 96(7):1911-. WBC Auto (Bld) [#/Vol]Ordere d By: Nancy Jha on 11-20-2022 WBC (Bld) [#/Vol] 5.0 10*3/uL 3.8-11.6 [facility] Activated partial thrombopla stin time (aPTT) in platelet poor plasma by coagulation aOrdered By: Frandy Pedersen on 10-17-2022 aPTT Coag (PPP) [Time] 37.8 s 25.1-36.5 [facility] B-Type Natriuretic Peptideon 10-17-2022 Natriuretic peptide B (Bld) [Mass/Vol] 14.0 pg/mL Normal 5-100 [facility] Comment on above: Result Comment: PERF ORMED BY: [facility] [address] [facility] [place] [address] PATHOLOGIST FRAME CLEANER JAKE SAN M.D. Performed By: #### P TT, BNP, CK, CBC, HS TROP, PT, BMP #### [facility] [address] Basic Metabolic Panelon 10-01 Anion gap [Moles/Vol] 10.0 mmol/L Normal 6.0-15.0 [facility] Comment on above: Performed By: #### P TT, BNP, CK, CBC, HS TROP, PT, BMP #### [facility] [address] Calcium [Mass/Vol] 9.0 mg/dL Normal 8.6-10.3 [facility] Comment on above: Performed By: #### P TT, BNP, CK, CBC, HS TROP, PT, BMP #### [facility] [address] Chloride [Moles/Vol] 102 mmol/L Normal 98-107 [facility] Comment on above: Performed By: #### P TT, BNP, CK, CBC, HS TROP, PT, BMP #### [facility] [address] CO2 [Moles/Vol] 30.5 mmol/L Normal 21.0-31.0 [facility] Comment on above: Performed By: #### P TT, BNP, CK, CBC, HS TROP, PT, BMP #### [facility] [address] Creatinine [Mass/Vol] 0.79 mg/dL Normal 0.60-1.20 [facility] Comment on above: Performed By: #### P TT, BNP, CK, CBC, HS TROP, PT, BMP #### [facility] [address] [place] [address] [place] Creatinine Clr Calc Pharmacy 82.04 Normal [facility] Comment on above: Result Comment: PERF ORMED BY: [place] [address] PATHOLOGIST FRAME CLEANER JAKE SAN M.D. Performed By: #### P TT, BNP, CK, CBC, HS TROP, PT, BMP #### [facility] [address] [place] [address] [place] GFR/1.73 sq M.predicted MDRD (S/P/Bld) [Vol rate/Area] mL/min/{1.73_m2} Normal [facility] Comment on above: Performed By: #### P TT, BNP, CK, CBC, HS TROP, PT, BMP #### [facility] [address] Glucose [Mass/Vol] 114 mg/dL High 70-100 [facility] Comment on above: Result Comment: [facility] Glucose Reference Range is dependent on time and content of last meal. Glucose of more than 200 mg/dL in a nonstressed, ambulatory subject supports the diagnosis of Diabetes Mellitus. ADA recommended reference range Performed By: #### P TT, BNP, CK, CBC, HS TROP, PT, BMP #### [address] Potassium [Moles/Vol] 3.5 mmol/L Normal 3.5-5.1 [facility] Comment on above: Performed By: #### P TT, BNP, CK, CBC, HS TROP, PT, BMP #### [address] Sodium [Moles/Vol] 139 mmol/L Normal 136-145 [facility] Comment on above: Performed By: #### P TT, BNP, CK, CBC, HS TROP, PT, BMP #### [address] Urea nitrogen [Mass/Vol] 14 mg/dL Normal 7-25 [facility] Comment on above: Performed By: #### P TT, BNP, CK, CBC, HS TROP, PT, BMP #### [place] [address] [place] Basophils Auto (Bld) [#/Vol] Ordered By: Frandy Pedersen on 10-17-2022 Basophils (Bld) [#/Vol] 0.0 10*3/uL 0.0-0.2 [facility] Basophils/100 WBC Auto (Bld) Ordered By: Frandy Pedersen on 10-17-2022 Basophils/100 WBC (Bld) 0.7 % . [facility] Calcium [Mass/volume] in Ser um or PlasmaOrdered By: Frandy Pedersen on 10-17-2022 Calcium [Mass/Vol] 9.0 mg/dL 8.6-10.3 [facility] Carbon dioxide, total [Moles /volume] in Serum or PlasmaOrdered By: Frandy Pedersen on 10-17-2022 CO2 [Moles/Vol] 30.5 mmol/L 21.0-31.0 [facility] Chloride [Moles/volume] in S rubia or PlasmaOrdered By: Frandy Pedersen on 10-17-2022 Chloride [Moles/Vol] 102 mmol/L 98-107 [facility] Complete Blood Count Auto Di ffon 10-17-2022 Basophils (Bld) [#/Vol] 0.0 10*3/uL Normal 0.0-0.2 [facility] Comment on above: Result Comment: PERF ORMED BY: [place] [address] PATHOLOGIST FRAME CLEANER JAKE SAN M.D. Performed By: #### P TT, BNP, CK, CBC, HS TROP, PT, BMP #### [facility] [address] Basophils/100 WBC (Bld) 0.7 % Normal . [facility] Comment on above: Performed By: #### P TT, BNP, CK, CBC, HS TROP, PT, BMP #### [facility] [address] [place] [address] [place] Eosinophils (Bld) [#/Vol] 0.2 10*3/uL Normal 0.0-0.45 [facility] Comment on above: Performed By: #### P TT, BNP, CK, CBC, HS TROP, PT, BMP #### [facility] [address] [place] [address] [place] Eosinophils/100 WBC (Bld) 3.2 % Normal . [facility] Comment on above: Performed By: #### P TT, BNP, CK, CBC, HS TROP, PT, BMP #### [address] Erythrocyte distribution width (RBC) [Ratio] 13.9 % Normal 11.9-15.3 [facility] Comment on above: Performed By: #### P TT, BNP, CK, CBC, HS TROP, PT, BMP #### [address] Hematocrit (Bld) [Volume fraction] 35.9 % Normal 34.0-46.4 [facility] Comment on above: Performed By: #### P TT, BNP, CK, CBC, HS TROP, PT, BMP #### [address] Hemoglobin (Bld) [Mass/Vol] 11.8 g/dL Normal 11.8-15.4 [facility] Comment on above: Performed By: #### P TT, BNP, CK, CBC, HS TROP, PT, BMP #### [address] Lymphocytes (Bld) [#/Vol] 1.7 10*3/uL Normal 1.00-4.8 [facility] Comment on above: Performed By: #### P TT, BNP, CK, CBC, HS TROP, PT, BMP #### [address] Lymphocytes/100 WBC (Bld) 32.9 % Normal . [facility] Comment on above: Performed By: #### P TT, BNP, CK, CBC, HS TROP, PT, BMP #### [address] MCH (RBC) [Entitic mass] 26.7 pg Normal 24.7-34.3 [facility] Comment on above: Performed By: #### P TT, BNP, CK, CBC, HS TROP, PT, BMP #### [address] MCV (RBC) [Entitic vol] 81.2 fL Normal 80-100 [facility] Comment on above: Performed By: #### P TT, BNP, CK, CBC, HS TROP, PT, BMP #### [address] Mean Corpuscular HGB Conc 32.9 g/dL Normal 32.0-35.0 [facility] Comment on above: Performed By: #### P TT, BNP, CK, CBC, HS TROP, PT, BMP #### [place] [address] [place] Monocytes (Bld) [#/Vol] 0.4 10*3/uL Normal 0.0-0.8 [facility] Comment on above: Performed By: #### P TT, BNP, CK, CBC, HS TROP, PT, BMP #### [address] Monocytes/100 WBC (Bld) 16.33 % Normal 0.00-20.00 [facility] Comment on above: Performed By: #### P TT, BNP, CK, CBC, HS TROP, PT, BMP #### [address] Monocytes/100 WBC (Bld) 8.8 % Normal . [facility] Comment on above: Performed By: #### P TT, BNP, CK, CBC, HS TROP, PT, BMP #### [address] Neutrophils (Bld) [#/Vol] 2.8 10*3/uL Normal 1.8-7.7 [facility] Comment on above: Performed By: #### P TT, BNP, CK, CBC, HS TROP, PT, BMP #### [place] [address] [place] Neutrophils/100 WBC (Bld) 54.4 % Normal . [facility] Comment on above: Performed By: #### P TT, BNP, CK, CBC, HS TROP, PT, BMP #### [address] NRBC% 0.0 /100{WBC} Normal 0-0.5 [facility] Comment on above: Performed By: #### P TT, BNP, CK, CBC, HS TROP, PT, BMP #### [facility] [address] Platelet mean volume (Bld) [Entitic vol] 7.9 fL Normal 6.3-10.7 [facility] Comment on above: Performed By: #### P TT, BNP, CK, CBC, HS TROP, PT, BMP #### [facility] [address] Platelets (Bld) [#/Vol] 299 10*3/uL Normal 150-450 [facility] Comment on above: Performed By: #### P TT, BNP, CK, CBC, HS TROP, PT, BMP #### [facility] [address] RBC (Bld) [#/Vol] 4.42 10*6/uL Normal 3.60-5.00 [facility] Comment on above: Performed By: #### P TT, BNP, CK, CBC, HS TROP, PT, BMP #### [facility] [address] WBC (Bld) [#/Vol] 5.1 10*3/uL Normal 3.8-11.6 [facility] Comment on above: Performed By: #### P TT, BNP, CK, CBC, HS TROP, PT, BMP #### [address] Creatine Kinaseon 10-17-2022 CK [Catalytic activity/Vol] 48 U/L Normal 30-223 [facility] Comment on above: Performed By: #### P TT, BNP, CK, CBC, HS TROP, PT, BMP #### [address] Creatine kinase [Enzymatic a ctivity/volume] in Serum or PlasmaOrdered By: Frandy Pedersen on 10-17-2022 CK [Catalytic activity/Vol] 48 U/L 30- [facility] Creatinine [Mass/volume] in Serum or PlasmaOrdered By: Frandy Pedersen on 10-17-2022 Creatinine [Mass/Vol] 0.79 mg/dL 0.60-1.20 [facility] ECG 12 lead ECGon 10-17-2022 ECG 12 lead ECG [facility] [place] [address] Electrocardiograph Report Signed Patient: Julia Villeda MR#: [id number] : 1950 Acct:[id number] Age/Sex: 72 / F ADM Date: 10/17/22 Loc: ER Room: Type: [facility] ER Attending Dr: Ordering Provider: Frandy Pedersen PA-C Date of Service: 10/17/22 ECG/ECG 12 lead ECG: Chest Pain Copies to: Test Reason : Blood Pressure : 199/092 mmHG Vent. Rate : 075 BPM Atrial Rate : 075 BPM P-R Int : 162 ms QRS Dur : 126 ms QT Int : 408 ms P-R-T Axes : 055 059 025 degrees QTc Int : 455 ms Normal sinus rhythm Right bundle branch block Confirmed by Antolin ALDANA DO ([id number]) on 10/17/2022 3:31:15 PM Referred By: Electronically Signed By:Antolin ALDANA DO Transcribed By: MUS Signed By Antolin Aldana DO 0 10/17/22 1531 Normal [facility] Eosinophils Auto (Bld) [#/Vo l]Ordered By: Frandy Pedersen on 10-17-2022 Eosinophils (Bld) [#/Vol] 0.2 10*3/uL 0.0-0.45 [facility] Eosinophils/100 WBC Auto (Bl d)Ordered By: Frandy Pedersen on 10-17-2022 Eosinophils/100 WBC (Bld) 3.2 % . [facility] Erythrocyte distribution wid th Auto (RBC) [Ratio]Ordered By: Frandy Pedersen on 10-17-2022 Erythrocyte distribution width (RBC) [Ratio] 13.9 % 11.9-15.3 [facility] Glucose [Mass/volume] in Ser um or PlasmaOrdered By: Frandy Pedersen on 10-17-2022 Glucose [Mass/Vol] 114 mg/dL 70-100 [facility] Comment on above: ADA recommended refe rence rangeRandom Glucose Reference Range is dependent on time and content of last meal. Glucose of more than 200 mg/dL in a nonstressed, ambulatory subject supports the diagnosis of Diabetes Mellitus. Hematocrit Auto (Bld) [Volum e fraction]Ordered By: Frandy Pedersen on 10-17-2022 Hematocrit (Bld) [Volume fraction] 35.9 % 34.0-46.4 [facility] Hemoglobin [Mass/volume] in BloodOrdered By: Frandy Pedersen on 10-17-2022 Hemoglobin (Bld) [Mass/Vol] 11.8 g/dL 11.8-15.4 [facility] - CoagulationOrde red By: Frandy Pedersen on 10-17-2022 PT Coag (PPP) [Time] 12.3 s 9.0-12.9 [facility] Leukocytes [#/volume] correc arnoldo for nucleated erythrocytes in Blood by Automated counOrdered By: Frandy Pedersen on 10-17-2022 WBC corrected for nucl RBC Auto (Bld) [#/Vol] 5.1 10*3/uL 3.8-11.6 [facility] Lymphocytes Auto (Bld) [#/Vo l]Ordered By: Frandy Pedersen on 10-17-2022 Lymphocytes (Bld) [#/Vol] 1.7 10*3/uL 1.00-4.8 [facility] Lymphocytes/100 WBC Auto (Bl d)Ordered By: Frandy Pedersen on 10-17-2022 Lymphocytes/100 WBC (Bld) 32.9 % . [facility] MCH Auto (RBC) [Entitic mass ]Ordered By: Frandy Pedersen on 10-17-2022 MCH (RBC) [Entitic mass] 26.7 pg 24.7-34.3 [facility] MCHC Auto (RBC) [Mass/Vol]Or dered By: Frandy Pedersen on 10-17-2022 MCHC (RBC) [Mass/Vol] 32.9 g/dL 32.0-35.0 [facility] MCV Auto (RBC) [Entitic vol] Ordered By: Frandy Pedersen on 10-17-2022 MCV (RBC) [Entitic vol] 81.2 fL 80-100 [facility] Monocyte distribution width [Entitic volume] in Blood by AutomatedOrdered By: Frandy Pedersen on 10-17-2022 Monocyte distribution width Auto (Bld) [Entitic vol] 16.33 % 0.00-20.00 [facility] Monocytes Auto (Bld) [#/Vol] Ordered By: Frandy Pedersen on 10-17-2022 Monocytes (Bld) [#/Vol] 0.4 10*3/uL 0.0-0.8 [facility] Monocytes/100 WBC Auto (Bld) Ordered By: Frandy Pedersen on 10-17-2022 Monocytes/100 WBC (Bld) 8.8 % . [facility] Natriuretic peptide B [Mass/ Vol]Ordered By: Frandy Pedersen on 10-17-2022 Natriuretic peptide B (Bld) [Mass/Vol] 14.0 pg/mL 5-100 [facility] Neutrophils Auto (Bld) [#/Vo l]Ordered By: Frandy Pedersen on 10-17-2022 Neutrophils (Bld) [#/Vol] 2.8 10*3/uL 1.8-7.7 [facility] Neutrophils/100 WBC Auto (Bl d)Ordered By: Frandy Pedersen on 10-17-2022 Neutrophils/100 WBC (Bld) 54.4 % . [facility] No Panel InformationOrdered By: Frandy Pedersen on 10-17-2022 Estimated GFR (CKD-EPI) > 60.0 mL/Min [facility] Creatinine Clearance (Chem 82.04 [facility] Nucleated erythrocytes [Pres ence] in Blood by Automated countOrdered By: Frandy Pedersen on 10-17-2022 Nucleated RBC Auto Ql (Bld) 0.0 /100{WBC} 0-0.5 [facility] Partial Thromboplastin Timeo n 10-17-2022 aPTT Coag (Bld) [Time] 37.8 s High 25.1-36.5 [facility] Comment on above: Result Comment: PERF ORMED BY: [place] [address] PATHOLOGIST FRAME CLEANER JAKE SAN M.D. Performed By: #### P TT, BNP, CK, CBC, HS TROP, PT, BMP #### [address] Platelet mean volume Auto (B ld) [Entitic vol]Ordered By: Frandy Pedersen on 10-17-2022 Platelet mean volume (Bld) [Entitic vol] 7.9 fL 6.3-10.7 [facility] Platelet poor plasma interna tional normalized ratio (INR) by coagulation assay (relatOrdered By: Frandy Pedersen on 10-17-2022 INR Coag (PPP) [Relative time] 1.1 {INR} [facility] Comment on above: INR Therapeutic Rang e A) Pre- and Peroperative OAT started two weeks before surgery. NOT HIP SURGERY: 1.5 - 2.5 HIP SURGERY: 2 - 3B) Primary and secondary prevention of venous THROMBOSIS: 2 - 3C) Active venous thrombosis, pulmonary embolismand prevention of recurrent venous thrombosis: 2 - 3D) Prevention of arterial thromboembolismincluding patients with mechanical heart valves: 3 - 4.5 Platelets Auto (Bld) [#/Vol] Ordered By: Frandy Pedersen on 10-17-2022 Platelets (Bld) [#/Vol] 299 10*3/uL 150-450 [facility] Potassium [Moles/volume] in Serum or PlasmaOrdered By: Frandy Pedersen on 10-17-2022 Potassium [Moles/Vol] 3.5 mmol/L 3.5-5.1 [facility] Prothrombin Time INRon 10-17 INR Coag (PPP) [Relative time] 1.1 {INR} Normal [facility] Comment on above: Result Comment: INR Therapeutic Range A) Pre- and Peroperative OAT started two weeks before surgery. NOT HIP SURGERY: 1.5 - 2.5 HIP SURGERY: 2 - 3 B) Primary and secondary prevention of venous THROMBOSIS: 2 - 3 C) Active venous thrombosis, pulmonary embolism and prevention of recurrent venous thrombosis: 2 - 3 D) Prevention of arterial thromboembolism including patients with mechanical heart valves: 3 - 4.5 Performed By: #### P TT, BNP, CK, CBC, HS TROP, PT, BMP #### [facility] [address] [id number] [facility] PT Coag (PPP) [Time] 12.3 s Normal 9.0-12.9 [facility] Comment on above: Performed By: #### P TT, BNP, CK, CBC, HS TROP, PT, BMP #### [facility] [address] RBC Auto (Bld) [#/Vol]Ordere d By: Frandy Pedersen on 10-17-2022 RBC (Bld) [#/Vol] 4.42 10*6/uL 3.60-5.00 [facility] Serum or plasma anion gap de terminationOrdered By: Frandy Pedersen on 10-17-2022 Anion gap [Moles/Vol] 10.0 mmol/L 6.0-15.0 [facility] Sodium [Moles/volume] in Ser um or PlasmaOrdered By: Frandy Pedersen on 10-17-2022 Sodium [Moles/Vol] 139 mmol/L 136-145 [facility] Troponin I High Sensitivityo n 10-17-2022 Troponin I High Sensitivity 3.1 pg/mL Normal 0.0-15.0 [facility] Comment on above: Result Comment: PERF ORMED BY: [place] [address] PATHOLOGIST FRAME CLEANER JAKE SAN M.D. Performed By: #### H S TROP #### [facility] [address] Troponin I High Sensitivity 5.3 pg/mL Normal 0.0-15.0 [facility] Comment on above: Result Comment: PERF ORMED BY: [place] [address] PATHOLOGIST FR[employer] CLEANER JAKE SAN M.D. Performed By: #### P TT, BNP, CK, CBC, HS TROP, PT, BMP ####[facility] [id number] Troponin I.cardiac [Mass/vol ume] in Serum or Plasma by Detection limit <= 0.01 ng/Ordered By: Frandy Pedersen on 10-17-2022 Troponin I.cardiac DL <= 0.01 ng/mL [Mass/Vol] 3.1 pg/mL 0.0-15.0 [facility] Troponin I.cardiac DL <= 0.01 ng/mL [Mass/Vol] 5.3 pg/mL 0.0-15.0 [facility] Urea nitrogen [Mass/volume] in Serum or PlasmaOrdered By: Frandy Pedersen on 10-17-2022 Urea nitrogen [Mass/Vol] 14 mg/dL 7-25 [facility] WBC Auto (Bld) [#/Vol]Ordere d By: Frandy Pedersen on 10-17-2022 WBC (Bld) [#/Vol] 5.1 10*3/uL 3.8-11.6 [facility] XR chest 2V*on 10-17-2022 XR chest 2V* [facility] [place] [address] XRay Report Signed Patient: Julia Villeda MR#: [id number] : 1950 Acct:[id number] Age/Sex: 72 / F ADM Date: 10/17/22 Loc: ER Room: Type: [facility] ER Attending Dr: Copies to: Frandy Pedersen PA-C Ordering Provider: Frandy Pedersen PA-C Date of Service: 10/17/22 XR/XR chest 2V*: Chest Pain Chest 2 views CLINICAL HISTORY: Chest pain radiating to jaw COMPARISON: None FINDINGS: Heart normal in size. Lungs are clear. No free air. XR/XR chest 2V* IMPRESSION: NO ACUTE CARDIOPULMONARY ABNORMALITY. Impression dictated by: Cj Mercado Jr., DBestOBest10/17/2022 4:28 PM Dictation Location: [place] [address] Transcribed By: [facility] 10/17/22 1628 Dictated By: Cj Mercado Jr, DO 10/17/22 1628 Signed By: 10/17/22 1628 Normal [facility] POINT OF CARE GLUCOSEon 09-01 Glucose [Mass/Vol] 100 mg/dL Normal 74-106 [facility] Comment on above: Performed By: #### P OCGLUC #### [facility] [address] [address] [address] Janelle Hoffman Glucose [Mass/Vol] 106 mg/dL Normal 74-106 [facility] Comment on above: Performed By: #### P OCGLUC #### [facility] [address] [address] [address] Janelle Hoffman PROF CHEM 8 (BAS METB)on Anion gap [Moles/Vol] 10.0 mmol/L Normal [facility] Comment on above: Performed By: #### B MP #### [facility] [address] [address] [address] Janelle Hoffman Calcium [Mass/Vol] 9.5 mg/dL Normal 8.5-10.1 [facility] Comment on above: Performed By: #### B MP #### [facility] [address] [place] [address] Dr. Janelle Hoffman Chloride [Moles/Vol] 102 mmol/L Normal 98-107 [facility] Comment on above: Performed By: #### B MP #### [facility] [address] [place] [address] Dr. Janelle Hoffman CO2 [Moles/Vol] 33.5 mmol/L Critically high 21.0-32.0 [facility] Comment on above: Performed By: #### B MP #### [facility] [address] [place] [address] Dr. Janelle Hoffman Creatinine [Mass/Vol] 0.73 mg/dL Normal 0.55-1.02 [facility] Comment on above: Performed By: #### B MP #### [facility] [address] [address] [address] Janelle Hoffman EGFR-AF BHUTANESE >60 Normal >=60 [facility] Comment on above: Performed By: #### B MP #### [facility] [address] [address] [address] Janelle Hoffman EGFR-NON AF BHUTANESE >60 Normal >=60 [facility] Comment on above: Performed By: #### B MP #### [facility] [address] [place] [address] Dr. Janelle Hoffman Glucose [Mass/Vol] 98 mg/dL Normal 74-106 [facility] Comment on above: Performed By: #### B MP #### [facility] [address] [place], [place] [address] Dr. Janelle Hoffman Potassium [Moles/Vol] 3.5 mmol/L Normal 3.5-5.1 [facility] Comment on above: Performed By: #### B MP #### [facility] [address] [place], [place] [address] Dr. Janelle Hoffman Sodium [Moles/Vol] 142 mmol/L Normal 136-145 [facility] Comment on above: Performed By: #### B MP #### [facility] [address] [address] [address] Janelle Hoffman Urea nitrogen [Mass/Vol] 11.0 mg/dL Normal 7.0-18.0 [facility] Comment on above: Performed By: #### B MP #### [facility] [address] [address] [address] Janelle Hoffman Urea nitrogen/Creatinine [Mass ratio] 15.1 mg/mg Normal [facility] Comment on above: Performed By: #### B MP #### [facility] [address] [address] [address] Janelle Hoffman XR hip RT min 2V(w/wo pelvis )*on 06-20-2022 XR hip RT min 2V(w/wo pelvis)* [facility] [employer] Other XR hip RT min 2V(w/wo pelvis)* [facility] [employer] Other XR hip RT min 2V(w/wo pelvis)* [address] [place] [address] [employer] Other XR hip RT min 2V(w/wo pelvis)* [place] [address] [employer] Other XR hip RT min 2V(w/wo pelvis)* XRay Report [employer] Other XR hip RT min 2V(w/wo pelvis)* Signed [employer] Other XR hip RT min 2V(w/wo pelvis)* Patient: Julia Villeda MR#: [id number] [employer] Other XR hip RT min 2V(w/wo pelvis)* [address] [employer] Other XR hip RT min 2V(w/wo pelvis)* : 1950 Acct:[id number] [employer] Other XR hip RT min 2V(w/wo pelvis)* Age/Sex: 72 / F ADM Date: 06/20/22 [employer] Other XR hip RT min 2V(w/wo pelvis)* Loc: [facility] Room: Type: [facility] [employer] Other XR hip RT min 2V(w/wo pelvis)* Attending Dr: Darek Chang II, MD [employer] Other XR hip RT min 2V(w/wo pelvis)* Copies to: Darek Chang MD [employer] Other XR hip RT min 2V(w/wo pelvis)* Ordering Provider: Darek Chang MD [employer] Other XR hip RT min 2V(w/wo pelvis)* Date of Service: 06/20/22 [employer] Other XR hip RT min 2V(w/wo pelvis)* XR/XR hip RT min 2V(w/wo pelvis)*: Right hip pain [employer] Other XR hip RT min 2V(w/wo pelvis)* 2 views RIGHT hip with single view pelvisplain film [employer] Other XR hip RT min 2V(w/wo pelvis)* COMPARISON:06/19/11 [employer] Other XR hip RT min 2V(w/wo pelvis)* HISTORY:RIGHT hip pain for months [employer] Other XR hip RT min 2V(w/wo pelvis)* No fracture, dislocation or focal soft tissue abnormality seen.Vpci-eh-mzul contact RIGHT hip [employer] Other XR hip RT min 2V(w/wo pelvis)* degenerative changes with subarticular sclerotic and cystic changes present. Unremarkable LEFT hip. [employer] Other XR hip RT min 2V(w/wo pelvis)* Mild SI joint degeneration. Spurring of the greater trochanters. [employer] Other XR hip RT min 2V(w/wo pelvis)* XR/XR hip RT min 2V(w/wo pelvis)* [employer] Other XR hip RT min 2V(w/wo pelvis)* IMPRESSION:Extensive RIGHT hip degenerative change. [employer] Other XR hip RT min 2V(w/wo pelvis)* Impression dictated by: Guille Vasquez M.D.06/20/2022 4:35 PM [employer] Other XR hip RT min 2V(w/wo pelvis)* Dictation Location: [place] [address] [employer] Other XR hip RT min 2V(w/wo pelvis)* Transcribed By: ARACELY 06/20/22 [facility] [employer] Other XR hip RT min 2V(w/wo pelvis)* Dictated By: Guille Vasquez DO 06/20/22 [facility] [employer] Other XR hip RT min 2V(w/wo pelvis)* Signed By: [employer] Other XR hip RT min 2V(w/wo pelvis)* 06/20/22 [facility] [employer] Other Complete Blood Count with Au to Diffon 10-17-2021 Basophils (Bld) [#/Vol] 0.04 10*3/uL Normal 0.00-0.20 [facility] [employer] Comment on above: Performed By: #### T SH reflex FT4, CBCAD, CMP, FT4, LIPD #### [facility] [address] [place], [place] [id number] Basophils/100 WBC (Bld) 0.6 % Normal [facility] Comment on above: Performed By: #### T SH reflex FT4, CBCAD, CMP, FT4, LIPD #### [facility] [address] [place], [place] [id number] Eosinophils (Bld) [#/Vol] 0.21 10*3/uL Normal 0.02-0.50 [facility] Comment on above: Performed By: #### T SH reflex FT4, CBCAD, CMP, FT4, LIPD #### [facility] [address] [place], [place] [id number] Eosinophils/100 WBC (Bld) 3.3 % Normal [facility] Comment on above: Performed By: #### T SH reflex FT4, CBCAD, CMP, FT4, LIPD #### [facility] [address] [place], [place] [id number] Erythrocyte distribution width (RBC) [Ratio] 13.9 % Normal 11.0-15.0 [facility] Comment on above: Performed By: #### T SH reflex FT4, CBCAD, CMP, FT4, LIPD #### [facility] [address] [place], [place] [id number] Hematocrit (Bld) [Volume fraction] 40.3 % Normal 35.0-47.0 [facility] Comment on above: Performed By: #### T SH reflex FT4, CBCAD, CMP, FT4, LIPD #### [facility] [address] [place], [place] [id number] Hemoglobin (Bld) [Mass/Vol] 12.9 g/dL Normal 11.6-15.5 [facility] Comment on above: Performed By: #### T SH reflex FT4, CBCAD, CMP, FT4, LIPD #### [facility] [address] [place], [place] [id number] Lymphocytes (Bld) [#/Vol] 1.9 10*3/uL Normal 0.9-3.9 [facility] Comment on above: Performed By: #### T SH reflex FT4, CBCAD, CMP, FT4, LIPD #### [facility] [address] [place], [place] [phone] Lymphocytes/100 WBC (Bld) 30.0 % Normal [facility] Comment on above: Performed By: #### T SH reflex FT4, CBCAD, CMP, FT4, LIPD #### [facility] [address] [place], [place] [id number] MCH (RBC) [Entitic mass] 26.7 pg Low 27.0-33.0 [facility] Comment on above: Performed By: #### T SH reflex FT4, CBCAD, CMP, FT4, LIPD #### [facility] [address] [place], [place] [phone] MCHC (RBC) [Mass/Vol] 32.0 g/dL Normal 32.0-36.0 [facility] Comment on above: Performed By: #### T SH reflex FT4, CBCAD, CMP, FT4, LIPD #### [facility] [address] [place], [place] [id number] MCV (RBC) [Entitic vol] 83 fL Normal 80-100 [facility] Comment on above: Performed By: #### T SH reflex FT4, CBCAD, CMP, FT4, LIPD #### [facility] [address] [place], [place] [id number] Monocytes (Bld) [#/Vol] 0.6 10*3/uL Normal 0.2-0.9 [facility] Comment on above: Performed By: #### T SH reflex FT4, CBCAD, CMP, FT4, LIPD #### [facility] [address] [place], [place] [id number] Monocytes/100 WBC (Bld) 9.1 % Normal [facility] Comment on above: Performed By: #### T SH reflex FT4, CBCAD, CMP, FT4, LIPD #### [facility] [address] [place], [place] [id number] Neutrophils (Bld) [#/Vol] 3.6 10*3/uL Normal 1.5-7.8 [facility] Comment on above: Performed By: #### T SH reflex FT4, CBCAD, CMP, FT4, LIPD #### [facility] [address] [place], [place] [id number] Neutrophils/100 WBC (Bld) 56.7 % Normal [facility] Comment on above: Performed By: #### T SH reflex FT4, CBCAD, CMP, FT4, LIPD #### [facility] [address] [place], [place] [id number] Platelet mean volume (Bld) [Entitic vol] 10.40 fL Normal 7.50-12.50 [facility] Comment on above: Performed By: #### T SH reflex FT4, CBCAD, CMP, FT4, LIPD #### [facility] [address] [place], [place] [id number] Platelets (Bld) [#/Vol] 346 10*3/uL Normal 140-400 [facility] Comment on above: Performed By: #### T SH reflex FT4, CBCAD, CMP, FT4, LIPD #### [facility] [address] [place], [place] [id number] RBC (Bld) [#/Vol] 4.83 10*6/uL Normal 3.90-5.20 [facility] Comment on above: Performed By: #### T SH reflex FT4, CBCAD, CMP, FT4, LIPD #### [facility] [address] [place], [place] [id number] RDW-SD 42.3 fL Normal 37.0-50.0 [facility] Comment on above: Performed By: #### T SH reflex FT4, CBCAD, CMP, FT4, LIPD #### [facility] [address] [place], [place] [id number] WBC (Bld) [#/Vol] 6.4 10*3/uL Normal 3.8-11.0 [facility] Comment on above: Performed By: #### T SH reflex FT4, CBCAD, CMP, FT4, LIPD #### [facility] [address] [place], [place] [id number] Comprehensive Metabolic Pane [facility] 10-17-2021 Albumin [Mass/Vol] 4.6 g/dL Normal 3.6-5.1 [facility] Comment on above: Performed By: #### T SH reflex FT4, CBCAD, CMP, FT4, LIPD #### [facility] [address] [place], [place] [id number] Albumin/Globulin [Mass ratio] 1.9 {ratio} Normal 1.0-2.5 [facility] Comment on above: Performed By: #### T SH reflex FT4, CBCAD, CMP, FT4, LIPD #### [facility] [address] [place], [place] [id number] ALP [Catalytic activity/Vol] 111 U/L Normal 35-119 [facility] Comment on above: Performed By: #### T SH reflex FT4, CBCAD, CMP, FT4, LIPD #### [facility] [address] [place], [place] [id number] ALT [Catalytic activity/Vol] 19 U/L Normal 6-33 [facility] Comment on above: Result Comment: 05/03 Female reference range changed. Performed By: #### T SH reflex FT4, CBCAD, CMP, FT4, LIPD #### [facility] [address] [place], [place] [id number] Anion gap [Moles/Vol] 18 mmol/L Normal 12-20 [facility] Comment on above: Result Comment: Effe ctive 06/08/2019 reference range changed. Performed By: #### T SH reflex FT4, CBCAD, CMP, FT4, LIPD #### [facility] [address] [place], [place] [id number] AST [Catalytic activity/Vol] 20 U/L Normal 9-34 [facility] Comment on above: Performed By: #### T SH reflex FT4, CBCAD, CMP, FT4, LIPD #### [facility] [address] [place], [place] [id number] Bilirubin [Mass/Vol] 0.71 mg/dL Normal 0.30-1.20 [facility] Comment on above: Performed By: #### T SH reflex FT4, CBCAD, CMP, FT4, LIPD #### [facility] [address] [place], [place] [id number] BUN/CREA 20 Ratio Normal 6-22 [facility] Comment on above: Performed By: #### T SH reflex FT4, CBCAD, CMP, FT4, LIPD #### [facility] [address] [place], [place] [id number] Calcium [Mass/Vol] 9.5 mg/dL Normal 8.6-10.2 [facility] Comment on above: Performed By: #### T SH reflex FT4, CBCAD, CMP, FT4, LIPD #### [facility] [address] [place], [place] [id number] Chloride [Moles/Vol] 102 mmol/L Normal 98-[address] [facility] Comment on above: Performed By: #### T SH reflex FT4, CBCAD, CMP, FT4, LIPD #### [facility] [address] [place], [place] [id number] CO2 [Moles/Vol] 24 mmol/L Normal 20-31 [facility] Comment on above: Performed By: #### T SH reflex FT4, CBCAD, CMP, FT4, LIPD #### [facility] [address] [place], [place] [id number] Creatinine [Mass/Vol] 0.8 mg/dL Normal 0.6-1.4 [facility] Comment on above: Performed By: #### T SH reflex FT4, CBCAD, CMP, FT4, LIPD #### [facility] [address] [place], [place] [id number] eGFRAA 93 mL/min/1.73m2 Normal >60 [facility] Comment on above: Performed By: #### T SH reflex FT4, CBCAD, CMP, FT4, LIPD #### [facility] [address] [place], [place] [id number] eGFRNAA 77 mL/min/1.73m2 Normal >60 [facility] Comment on above: Performed By: #### T SH reflex FT4, CBCAD, CMP, FT4, LIPD #### [facility] [address] [place], [place] [id number] Globulin (S) [Mass/Vol] 2.4 g/dL Normal 1.9-3.7 [facility] [employer] Comment on above: Performed By: #### T SH reflex FT4, CBCAD, CMP, FT4, LIPD #### [facility] [address] [place], [place] [id number] Glucose [Mass/Vol] 109 mg/dL High 65-99 [facility] [place] [employer] Comment on above: Result Comment: For FASTING Glucose --- ADA reference ranges: Normal 65-99 mg/dl Prediabetes 100-125 Diabetes >/= 126 Performed By: #### T SH reflex FT4, CBCAD, CMP, FT4, LIPD #### [facility] [address] [place], [place] [id number] Potassium [Moles/Vol] 4.3 mmol/L Normal 3.5-5.5 [facility] Comment on above: Performed By: #### T SH reflex FT4, CBCAD, CMP, FT4, LIPD #### [facility] [address] [place], [place] [id number] Protein [Mass/Vol] 7.0 g/dL Normal 6.1-8.1 [facility] [employer] Comment on above: Performed By: #### T SH reflex FT4, CBCAD, CMP, FT4, LIPD #### [facility] [address] [place], [place] [id number] Sodium [Moles/Vol] 139 mmol/L Normal 135-146 [facility] [employer] Comment on above: Performed By: #### T SH reflex FT4, CBCAD, CMP, FT4, LIPD #### [facility] [address] [place], [place] [id number] Urea nitrogen [Mass/Vol] 15 mg/dL Normal 7-25 [facility] [employer] Comment on above: Performed By: #### T SH reflex FT4, CBCAD, CMP, FT4, LIPD #### [facility] [address] [place], [place] [id number] Free T4on 10-17-2021 Free T4 [Mass/Vol] 1.45 ng/dL Normal 0.80-1.80 [facility] [employer] Table Operator Helper Comment on above: Performed By: #### T SH reflex FT4, CBCAD, CMP, FT4, LIPD #### [facility] [address] [place], [place] [id number] Hemoglobin A1Con 10-17-2021 EAG 125.50 Normal [facility] Specialist Comment on above: Performed By: #### A 1C #### [facility] [address] [place] [address], [place] [id number] HbA1c (Bld) [Mass fraction] 6.0 % Normal 4.0-6.0 [facility] Specialist Comment on above: Performed By: #### A 1C #### [facility] [address] [place], [place] [id number] Lipid Panelon 10-17-2021 Cholesterol [Mass/Vol] 193 mg/dL Normal 125-200 [facility] Special[facility] Comment on above: Result Comment: Low risk < 200mg/dL Borderline risk 201-239 mg/dl High risk > or equal to 240 Performed By: #### T SH reflex FT4, CBCAD, CMP, FT4, LIPD #### [facility] [address] [place], [place] [id number] Cholesterol in HDL [Mass/Vol] 44 mg/dL Normal >40 [facility] Specialist Comment on above: Result Comment: High Cardiovascular Risk HDL <40 mg/dL Low Cardiovascular Risk HDL > or equal to 60 mg/dl Performed By: #### T SH reflex FT4, CBCAD, CMP, FT4, LIPD #### [facility] [address] [place], [place] [id number] Cholesterol in LDL [Mass/Vol] 126 mg/dL Normal [facility] Specialist Comment on above: Result Comment: LDL ATP III CLASSIFICATION LDL less than 100 mg/dl Optimal LDL 100-129 mg/dl Near or above optimal LDL 130-159 Borderline high LDL 160-189 High LDL greater than 189 mg/dl Very High Performed By: #### T SH reflex FT4, CBCAD, CMP, FT4, LIPD #### [facility] [address] [place], [place] [id number] Cholesterol in VLDL [Mass/Vol] 23 mg/dL Normal [facility] Specialist Comment on above: Performed By: #### T SH reflex FT4, CBCAD, CMP, FT4, LIPD #### [facility] [address] [place], [place] [id number] Cholesterol.total/Cho lesterol in HDL [Mass ratio] 4 {ratio} Normal [facility] Specialist Comment on above: Performed By: #### T SH reflex FT4, CBCAD, CMP, FT4, LIPD #### [facility] [address] [place], [place] [id number] Triglyceride [Mass/Vol] 116 mg/dL Normal 30-150 [facility] Specialist Comment on above: Result Comment: TRIG ATPIII CLASSIFICATIONS TRIG less than 150 mg/dl Normal TRIG 150-199 mg/dl Borderline High TRIG 200-500 mg/dl High TRIG greather than 500 mg/dl Very High Performed By: #### T SH reflex FT4, CBCAD, CMP, FT4, LIPD #### [facility] [address] [place], [place] [id number] Microalbumin (with Creat)on 10-17-2021 mALB <1.2 Low [facility] Specialist Comment on above: Result Comment: Unab le to calculate mALB/Crea ratio, mALB is <1.2 mg/dL mALB reference range not established. Performed By: #### m ALBC #### [facility] [address] [place], [place] [id number] UCREA 261 mg/dL High 28-217 [facility] Specialist Comment on above: Performed By: #### m ALBC #### [facility] [address] [place] [address], [place] [id number] TSH w/ Reflex to Free T4on 0 10-17-2021 FT4 reflex Free T4 Normal [facility] Specialist Comment on above: Performed By: #### T SH reflex FT4, CBCAD, CMP, FT4, LIPD #### [facility] [address] [place], [place] [id number] TSH 0.201 uIU/mL Low 0.400-4.500 [facility] Table Operator Helper Comment on above: Performed By: #### T SH reflex FT4, CBCAD, CMP, FT4, LIPD #### [facility] [address] [place], [place] [id number] CNOVon 04-11-2021 CNOV Office Visit (LOORRM ) ----- JULIA VILLEDA ([id number]) 1950 F Date Time Provider Department 04/11/21 2:45 PM BEST VALERA LOORRIlene During your visit today, we recorded the following information about you: Best Valera MD 04/11/2021 3:45 PM Signed This document has been created with the use of voice recognition technology. It may contain inaccuracies: misspellings, inaccurate syntax or word sense that escaped review. HISTORY: Julia is a 71 year old female. She is here following up for right knee total knee replacement with a date of surgery of 10/03/2020. She states she is doing well without any concerns. She has no pain HISTORY OF PRESENT ILLNESS: PAIN EVALUATION 04/11/2021 1527 Pain Level: 0 Pain Location: Knee-Right Description: Other: See comment no pain Duration Units: Unknown Frequency: ? no pain Intervention/Comfort measure: Reposition;Relaxation;Pos itioning The patient's past medical history, surgical history, social history, family history, medications and allergies were reviewed with the patient today and are available in the chart for further review. EXAMINATION: Examination of the knee demonstrates the incision to be healed. No effusion. Active full extension, flexion to 120. None patellofemoral crepitation/Good patellar tracking. Stable to varus and valgus stresses. Stable anterior posterior drawer Calf is soft and nontender. Hip exam is negative Intact sensation to light touch distally RADIOGRAPHS: XR obtained today and personally reviewed my myself demonstrating none today IMPRESSION: Encounter Diagnosis ICD-10-CM 1. S/P TKR (total knee replacement), right Z96.651 Procedures PLAN: Postoperatively doing excellent. No concerns. She is happy. We discussed antibiotic prophylaxis. We will follow-up for any problems Best Valera MD Referring Provider: BEST VALERA [[id number]] Allergies As of Date: 04/11/2021 Noted Allergy Reaction ADHESIVE TAPE (ROSINS) 01/10/2015 2 - Rash bee stings [Other] 11/05/2006 7 - Swelling LATEX 10/11/2015 2 - Rash Comments: Rash SHELLFISH 11/05/2006 8 - GI Upset IODINE 04/27/2009 2 - Rash PENICILLIN G 04/27/2009 2 - Rash Date Reviewed: 04/11/2021 Reviewed by: Anshul Branch MA - Fully Assessed Reason for Visit: Follow Up [171] Primary Visit Diagnosis:S/P TKR (total knee replacement), right [Z96.651] Prescriptions as of 04/11/2021 - levothyroxine 112 mcg cap Take 112 mcg by mouth daily before breakfast. - sertraline (ZOLOFT) 25 mg tablet Take 25 mg by mouth once daily. - clindamycin (CLEOCIN HCL) 300 mg capsule Take 2 tablets 1 hour prior to procedure and take 2 tablets 6 hours following procedure. - aspirin, enteric coated (ASPIRIN, ENTERIC COATED) 81 mg EC tablet Take 1 tablet by mouth twice daily. - docusate sodium (COLACE) 100 mg capsule Take 1 capsule by mouth twice daily. - acetaminophen (TYLENOL) 325 mg tablet Take 2 tablets by mouth every 4 hours as needed for Pain. - naloxone 4 mg/actuation nasal spray (NARCAN) Use 1 spray in one nostril as needed for overdose. May repeat every 2 to 3 min in alternating nostrils until medical assistance is available - clonazePAM (KLONOPIN) 0.5 mg tablet Take 0.5 mg by mouth. As needed - fluticasone (FLONASE) 50 mcg/actuation nasal spray - cholecalciferol, vitamin D3, 4,000 unit cap Take 6,000 Units by mouth. - lisinopril (ZESTRIL, PRINIVIL) 20 mg tablet Take 20 mg by mouth once daily. - Selenium 100 mcg tab Take 1 tablet by mouth once daily. - MAGNESIUM CITRATE ORAL Take by mouth. - COMPOUNDED PRESCRIPTION tiest 2.5mg sr one cap twice daily - multivitamin with minerals (ONE-A-DAY MAXIMUM FORMULA) ORAL Tab Take one(1) tablet daily. Meds Comments as of 09/12/2020: 07/28 08/19 [employer] Problem List As Of Date 04/11/2021 Noted Resolved Hip pain [M25.559] 07/27/2009 05/18/2015 Hip Arthritis [M16.10] 07/27/2009 Rotator cuff tendonitis [M75.80] 05/10/2015 Impingement syndrome of right shoulder [M75.41] 05/10/2015 Shoulder impingement syndrome [M75.40] 05/18/2015 09/13/2015 Right hand pain [M79.641] 09/27/2015 12/08/2018 Radial styloid tenosynovitis of right hand [M65*01/20/2016 Sprain of right shoulder [S43.401A] 10/09/2016 VONDA on CPAP [G47.33, Z99.89] 11/11/2018 Essential hypertension [I10] 11/11/2018 Other specified hypothyroidism [E03.8] 11/11/2018 OA (osteoarthritis) of knee [M17.10] 12/08/2018 S/P total knee replacement, left 12/08/18 [Z96.65*01/20/2019 Obesity, Class II, BMI 35-39.9 [E66.9] 10/03/2020 Encounter Status:Closed by BEST VALERA on 04/11/21 [facility] CNOVon 01-24-2021 CNOV Office Visit (JERRI ) ----- JULIA VILLEDA ([id number]) 1950 F Date Time Provider Department 01/24/21 9:45 AM BEST VALERA During your visit today, we recorded the following information about you: Best Valera MD 01/24/2021 10:33 AM Signed Ortho Knee Follow Up Note Narrative Referring Provider: Best Valera [address] [place] [address] PCP: Nancy Jha, DO === IMPRESSION/PLAN: === 70 year old s/p Right Total Knee Replacement completed on 10/03/2020. Recent Surgeries in Orthopaedics 10/03/2020 (3mo) ARTHROPLASTY REPLACE JOINT TOTAL KNEE (Right) Best Valera MD - Posted 12/08/2018 (2yr, 1mo) ARTHROPLASTY REPLACE JOINT TOTAL KNEE (Left) Best Valera MD - Posted 05/18/2015 (5yr) ARTHROSCOPY SHOULDER WITH SUBACROMIAL DECOMPRESSION; ARTHROSCOPY SHOULDER ROTATOR CUFF (Right; Right) Best Valera MD - Posted PAIN EVALUATION 01/24/2021 0946 Pain Level: 4 Pain Location: Knee-Right Description: Tightness;Stiffness Duration Amount of Time: 3.5 Duration Units: Months Frequency: Intermittent Intervention/Comfort measure: Reposition;Relaxation;Pos itioning;Medication;Cold; Exercise IMPRESSION: Excellent early outcome No complaints or limitations At normal post-operative stage of recovery. PLAN: Rest, Ice, Compression, Elevation PRN. Patient Reassurance: Normal post-operative course discussed with patient. Progress appears to be with the normal speed of recovery. Patient reassured and supported. All questions answered. Follow up 3 months No X-Rays Needed Julia Villeda presents today for a an intermediate post-op visit ACTIVE PROBLEM LIST Hip Arthritis Rotator Cuff Tendonitis Impingement Syndrome of Right Shoulder Radial Styloid Tenosynovitis of Right Hand Sprain of Right Shoulder Vonda On Cpap Essential Hypertension Other Specified Hypothyroidism Oa (Osteoarthritis) of Knee S/P total knee replacement, left 12/08/18 Obesity, Class II, Bmi 35-39.9 Status post op: BMI: There is no height or weight on file to calculate BMI. Post-operative recovery was complicated by uneventful/none. Readmission(s) since surgery (90 days post)? No ED Visits AND Hospitalizations - Last 180 days 10/03/20 Best Valera MD, AV5E S/P TKR (total knee replacement) not using cement, right ..., Admission (Discharged) Patient rates their condition as improving. Does the patient still experience pain? No Post Op discharge patient location: in home. Functional Assessment is as follows: completed outpatient PT. Functional difficulties: None. Pain Medication: Non-narcotic Opioid Medications (last 90 days) Some values may be hidden. Unless noted otherwise, only the newest values recorded on each date are displayed. Opioid Medications No data to display. Currently Ambulating with: no ambulation aides ======== EXAM: POST OP KNEE ======== Right Post-Operative Knee Ambulates with a normal gait. SKIN: Appropriate postop appearance, No evidence of erythema, warmth, discharge or drainage, Incision clean/dry/intact and slight warmth to the skin surrounding the right knee. Range of motion is 0 degrees in extension and 110 degrees of flexion. Extension La degrees Pain with ROM: No There is Slight effusion. Mal-alignment: No Tender to the palpation of None Neurovascular Status: Sensation Intact, Moves foot and ankle up AND down, Moves toes up and down, 2+ dorsalis pedis and negative homans sign Stability:Anterior/Patient Accounts Manager ior- Yes, stable and Varus/Valgus- Yes, stable Quad strength: normal Imagin. None today. Provider: Best Valera MD Completed by: Mendez Cosby PA-C I have personally performed face to face diagnostic evaluation on this patient. I have examined the patient and reviewed radiographic studies and agree with plan as outlined above. Best Valera MD January 24, 2021 10:32 AM Best Valera MD 01/24/2021 12:32 PM Signed Addended by: BEST VALERA on: 01/24/2021 12:32 PM Modules accepted: Orders Mendez Cosby PA-C 01/24/2021 12:33 PM Signed Addended by: MENDEZ COSBY on: 01/24/2021 12:33 PM Modules accepted: Orders Referring Provider: BEST VALERA [[id number]] Allergies As of Date: 01/24/2021 Noted Allergy Reaction ADHESIVE TAPE (ROSINS) 01/10/2015 2 - Rash bee stings [Other] 11/05/2006 7 - Swelling LATEX 10/11/2015 2 - Rash Comments: Rash SHELLFISH 11/05/2006 8 - GI Upset IODINE 04/27/2009 2 - Rash PENICILLIN G 04/27/2009 2 - Rash Date Reviewed: 01/24/2021 Reviewed by: Mendez Cosby PA-C - Fully Assessed Reason for Visit: Knee Pain [132] Primary Visit Diagnosis:S/P TKR (total knee replacement), right [Z96.651] Other Visit Diagnosis:Prophylactic antibiotic [Z79.2] Order(s):clindamycin (CLEOCIN HCL) 30 (more content not included)... Normal [facility] CNOVon 11-17-2020 CNOV Office Visit (ORAVON ) ----- JULIA VILLEDA ([id number]) 1950 F Date Time Provider Department 11/17/20 1:30 PM BEST VALERA During your visit today, we recorded the following information about you: Best Valera MD 11/17/2020 2:15 PM Signed Ortho Knee Follow Up Note Narrative Referring Provider: Best Valera [address] [facility] [address] PCP: Nancy Jha, DO === IMPRESSION/PLAN: === 70 year old s/p Right Total Knee Replacement completed on 10/03/2020. IMPRESSION: Excellent early outcome PLAN: No new treatment indicated: Routine follow-up. Continue current conservative treatment. Rest, Ice, Compression, Elevation PRN. Patient Reassurance: Normal post-operative course discussed with patient. Progress appears to be with the normal speed of recovery. Patient reassured and supported. All questions answered. Follow up 3 months No X-Rays Needed Julia Villeda presents today for a an intermediate post-op visit ACTIVE PROBLEM LIST Hip Arthritis Rotator Cuff Tendonitis Impingement Syndrome of Right Shoulder Radial Styloid Tenosynovitis of Right Hand Sprain of Right Shoulder Vonda On Cpap Essential Hypertension Other Specified Hypothyroidism Oa (Osteoarthritis) of Knee S/P total knee replacement, left 12/08/18 Obesity, Class II, Bmi 35-39.9 Status post op: Right Total Knee Replacement BMI: There is no height or weight on file to calculate BMI. Post-operative recovery was complicated by uneventful/none. Patient rates their condition as improving. Does the patient still experience pain? Yes, intermittent soreness, up to a 1/0 Post Op discharge patient location: at an outpatient facility. Functional Assessment is as follows: has already started outpatient PT as of this visit. Functional difficulties: None. Pain Medication: Non-narcotic Currently Ambulating with: no ambulation aides ======== EXAM: POST OP KNEE ======== Right Post-Operative Knee Ambulates with a normal gait. SKIN: Appropriate postop appearance, No evidence of erythema, warmth, discharge or drainage and No evidence of warmth or erythema. Range of motion is 0 degrees in extension and 120 degrees of flexion. Extension La degrees Pain with ROM: No There is None effusion. Mal-alignment: No Tender to the palpation of None Neurovascular Status: Sensation Intact, Moves foot and ankle up AND down, Moves toes up and down, 2+ dorsalis pedis and negative homans sign Stability:Anterior/Patient Accounts Manager ior- Yes, stable and Varus/Valgus- Yes, stable Quad strength: normal Imagin. None today. Provider: Best Valera MD Completed by: Anshul Branch MA I have personally performed face to face diagnostic evaluation on this patient. I have examined the patient and reviewed radiographic studies and agree with plan as outlined above. Best Valera MD November 17, 2020 2:14 PM Referring Provider: BEST VALERA [[id number]] Allergies As of Date: 11/17/2020 Noted Allergy Reaction ADHESIVE TAPE (ROSINS) 01/10/2015 2 - Rash bee stings [Other] 11/05/2006 7 - Swelling LATEX 10/11/2015 2 - Rash Comments: Rash SHELLFISH 11/05/2006 8 - GI Upset IODINE 04/27/2009 2 - Rash PENICILLIN G 04/27/2009 2 - Rash Date Reviewed: 11/17/2020 Reviewed by: Anshul Branch MA - Fully Assessed Reason for Visit: Post Op [174] Primary Visit Diagnosis:S/P TKR (total knee replacement), right [Z96.651] Prescriptions as of 11/17/2020 Sig: LEVOTHYROXINE 125 MCG TABLET ASPIRIN 81 MG TABLET,DELAYED * Take 1 tablet by mouth twice * DOCUSATE SODIUM 100 MG CAPSULE Take 1 capsule by mouth twice* ACETAMINOPHEN 325 MG TABLET Take 2 tablets by mouth every* NALOXONE 4 MG/ACTUATION NASAL* Use 1 spray in one nostril as* CLONAZEPAM 0.5 MG TABLET Take 0.5 mg by mouth. As need* SERTRALINE 50 MG TABLET Take 50 mg by mouth once tasha* FLUTICASONE PROPIONATE 50 MCG* CLINDAMYCIN HCL 300 MG CAPSULE Take 2 tablets 1 hour prior t* CHOLECALCIFEROL (VITAMIN D3) * Take 6,000 Units by mouth. LISINOPRIL 20 MG TABLET Take 20 mg by mouth once tasha* SELENIUM 100 MCG TABLET Take 1 tablet by mouth once d* MAGNESIUM CITRATE ORAL Take by mouth. COMPOUNDED PRESCRIPTION tiest 2.5mg sr one cap twice * ONE-A-DAY MAXIMUM FORMULA TAB* Take one(1) tablet daily. Problem List As Of Date 11/17/2020 Noted Resolved Hip pain [M25.559] 07/27/2009 05/18/2015 Hip Arthritis [M16.10] 07/27/2009 Rotator cuff tendonitis [M75.80] 05/10/2015 Impingement syndrome of right shoulder [M75.41] 05/10/2015 Shoulder impingement syndrome [M75.40] 05/18/2015 09/13/2015 Right hand pain [M79.641] 09/27/2015 12/08/2018 Radial styloid tenosynovitis of right hand [M65*01/20/2016 Sprain of right shoulder [S43.401A] 10/09/2016 VONDA on CPAP [G47.33, Z99.89] (more content not included)... Normal [facility] Kimberly [facility] ----- JULIA VILLEDA ([id number]) 1950 F Date Time Provider Department 10/26/20 LASHELL BEST LISA During your visit today, we recorded the following information about you: Jailene Girard Pss 10/26/2020 8:55 AM Signed Patient calling in regards to PT orders that were discussed at 10/25 office visit Requesting orders be faxed to [facility] at [phone], attention Elkin Womack. Any question [facility] phone is [phone] Patient can be reached at [phone] with any questions. Please advise. Anshul Branch MA 10/26/2020 2:00 PM Signed PT order has been faxed to number provided below and fax confirmation was received. Allergies As of Date: 10/26/2020 Noted Allergy Reaction ADHESIVE TAPE (ROSINS) 01/10/2015 2 - Rash bee stings [Other] 11/05/2006 7 - Swelling LATEX 10/11/2015 2 - Rash Comments: Rash SHELLFISH 11/05/2006 8 - GI Upset IODINE 04/27/2009 2 - Rash PENICILLIN G 04/27/2009 2 - Rash Date Reviewed: 10/25/2020 Reviewed by: Mendez Cosby PA-C - Fully Assessed Reason for Visit: Orders [681] Prescriptions as of 10/26/2020 Sig: ASPIRIN 81 MG TABLET,DELAYED * Take 1 tablet by mouth twice * DOCUSATE SODIUM 100 MG CAPSULE Take 1 capsule by mouth twice* ACETAMINOPHEN 325 MG TABLET Take 2 tablets by mouth every* NALOXONE 4 MG/ACTUATION NASAL* Use 1 spray in one nostril as* CLONAZEPAM 0.5 MG TABLET Take 0.5 mg by mouth. As need* SERTRALINE 50 MG TABLET Take 50 mg by mouth once tasha* FLUTICASONE PROPIONATE 50 MCG* LEVOTHYROXINE 100 MCG TABLET Take 100 mcg by mouth daily b* CLINDAMYCIN HCL 300 MG CAPSULE Take 2 tablets 1 hour prior t* CHOLECALCIFEROL (VITAMIN D3) * Take 6,000 Units by mouth. LISINOPRIL 20 MG TABLET Take 20 mg by mouth once tasha* SELENIUM 100 MCG TABLET Take 1 tablet by mouth once d* MAGNESIUM CITRATE ORAL Take by mouth. COMPOUNDED PRESCRIPTION tiest 2.5mg sr one cap twice * ONE-A-DAY MAXIMUM FORMULA TAB* Take one(1) tablet daily. Problem List As Of Date 10/26/2020 Noted Resolved Hip pain [M25.559] 07/27/2009 05/18/2015 Hip Arthritis [M16.10] 07/27/2009 Rotator cuff tendonitis [M75.80] 05/10/2015 Impingement syndrome of right shoulder [M75.41] 05/10/2015 Shoulder impingement syndrome [M75.40] 05/18/2015 09/13/2015 Right hand pain [M79.641] 09/27/2015 12/08/2018 Radial styloid tenosynovitis of right hand [M65*01/20/2016 Sprain of right shoulder [S43.401A] 10/09/2016 VONDA on CPAP [G47.33, Z99.89] 11/11/2018 Essential hypertension [I10] 11/11/2018 Other specified hypothyroidism [E03.8] 11/11/2018 OA (osteoarthritis) of knee [M17.10] 12/08/2018 S/P total knee replacement, left 12/08/18 [Z96.65*01/20/2019 Obesity, Class II, BMI 35-39.9 [E66.9] 10/03/2020 Encounter Status:Closed by ANSHUL BRANCH on 10/26/20 [facility] Abdi 10-25-2020 CNOV Office Visit (LOORRM ) ----- JULIA VILLEDA ([id number]) 1950 F Date Time Provider Department 10/25/20 10:00 AM MENDEZ COSBY During your visit today, we recorded the following information about you: Mendez Cosby PA-C 10/25/2020 10:27 AM Signed Ortho Knee Follow Up Note Narrative Referring Provider: Best Valera [address] [place] [address] PCP: Nancy Jha, DO === IMPRESSION/PLAN: === 70 year old s/p Right Total Knee Replacement completed on 10/03/20. IMPRESSION: Excellent early outcome PLAN: No new treatment indicated: Routine follow-up and Continue physical therapy. Patient Reassurance: Normal post-operative course discussed with patient. Progress appears to be with the normal speed of recovery. Patient reassured and supported. All questions answered. Follow up 3 weeks No X-Rays Needed Julia Villeda presents today for a an early post-op visit ACTIVE PROBLEM LIST Hip Arthritis Rotator Cuff Tendonitis Impingement Syndrome of Right Shoulder Radial Styloid Tenosynovitis of Right Hand Sprain of Right Shoulder Vonda On Cpap Essential Hypertension Other Specified Hypothyroidism Oa (Osteoarthritis) of Knee S/P total knee replacement, left 12/08/18 Obesity, Class II, Bmi 35-39.9 Status post op: Right Total Knee Replacement BMI: There is no height or weight on file to calculate BMI. Post-operative recovery was complicated by uneventful/none. Patient rates their condition as improving. Does the patient still experience pain? No Post Op discharge patient location: at an outpatient facility. Functional Assessment is as follows: completed home PT. Functional difficulties: None. Pain Medication: Non-narcotic Currently Ambulating with: no ambulation aides ======== EXAM: POST OP KNEE ======== Right Post-Operative Knee Ambulates with a normal gait. SKIN: Appropriate postop appearance, No evidence of erythema, warmth, discharge or drainage and No evidence of warmth or erythema. Range of motion is 0 degrees in extension and 110 degrees of flexion. Extension La degrees Pain with ROM: No There is Slight effusion. Mal-alignment: No Tender to the palpation of Medial femoral condyle Neurovascular Status: Sensation Intact, Moves foot and ankle up AND down, Moves toes up and down, 2+ dorsalis pedis and negative homans sign Stability:Anterior/Patient Accounts Manager ior- Yes, stable and Varus/Valgus- Yes, stable Quad strength: normal Imagin. Implants are well aligned. Implants are well fixed. There is no evidence of loosening. Provider: Mendez Cosby PA-C Completed by: Mendez Cosby PA-C Referring Provider: BEST VALERA [[id number]] Allergies As of Date: 10/25/2020 Noted Allergy Reaction ADHESIVE TAPE (ROSINS) 01/10/2015 2 - Rash bee stings [Other] 11/05/2006 7 - Swelling LATEX 10/11/2015 2 - Rash Comments: Rash SHELLFISH 11/05/2006 8 - GI Upset IODINE 04/27/2009 2 - Rash PENICILLIN G 04/27/2009 2 - Rash Date Reviewed: 10/25/2020 Reviewed by: Mendez Cosby PA-C - Fully Assessed Reason for Visit: Post Op [174] Primary Visit Diagnosis:S/P TKR (total knee replacement), right [Z96.651] Prescriptions as of 10/25/2020 Sig: ASPIRIN 81 MG TABLET,DELAYED * Take 1 tablet by mouth twice * DOCUSATE SODIUM 100 MG CAPSULE Take 1 capsule by mouth twice* ACETAMINOPHEN 325 MG TABLET Take 2 tablets by mouth every* NALOXONE 4 MG/ACTUATION NASAL* Use 1 spray in one nostril as* CLONAZEPAM 0.5 MG TABLET Take 0.5 mg by mouth. As need* SERTRALINE 50 MG TABLET Take 50 mg by mouth once tasha* FLUTICASONE PROPIONATE 50 MCG* LEVOTHYROXINE 100 MCG TABLET Take 100 mcg by mouth daily b* CLINDAMYCIN HCL 300 MG CAPSULE Take 2 tablets 1 hour prior t* CHOLECALCIFEROL (VITAMIN D3) * Take 6,000 Units by mouth. LISINOPRIL 20 MG TABLET Take 20 mg by mouth once tasha* SELENIUM 100 MCG TABLET Take 1 tablet by mouth once d* MAGNESIUM CITRATE ORAL Take by mouth. COMPOUNDED PRESCRIPTION tiest 2.5mg sr one cap twice * ONE-A-DAY MAXIMUM FORMULA TAB* Take one(1) tablet daily. Problem List As Of Date 10/25/2020 Noted Resolved Hip pain [M25.559] 07/27/2009 05/18/2015 Hip Arthritis [M16.10] 07/27/2009 Rotator cuff tendonitis [M75.80] 05/10/2015 Impingement syndrome of right shoulder [M75.41] 05/10/2015 Shoulder impingement syndrome [M75.40] 05/18/2015 09/13/2015 Right hand pain [M79.641] 09/27/2015 12/08/2018 Radial styloid tenosynovitis of right hand [M65*01/20/2016 Sprain of right shoulder [S43.401A] 10/09/2016 VONDA on CPAP [G47.33, Z99.89] 11/11/2018 Essential hypertension [I10] 11/11/2018 Other specified hypothyroidism [E03.8] 11/11/2018 OA (osteoarthritis) of knee [M17.10] 12/08/2018 S/P total knee replacement, left 12/08/18 [Z96.65*01/20/2019 Obesit (more content not included)... Normal [facility] XR KNEE 3V AP/LAT/MERCHANT R Ton 10-25-2020 XR KNEE 3V AP/LAT/MERCHANT RT * * *Final Report* * * DATE OF EXAM: Oct 25 2020 9:57AM LZX 5209 - XR KNEE 3V AP/LAT/MERCHANT RT / PROCEDURE REASON: Status post total knee replacement, right * * * * Physician Interpretation * * * * X-RAYS RIGHT KNEE HISTORY: RIGHT KNEE POST OP TOTAL REPLACEMENT. Status post total knee replacement, right TECHNIQUE: 3 views of the right knee. COMPARISON: 07/12/2020 RESULT: New postsurgical changes right total knee arthroplasty with patellar resurfacing. Satisfactory alignment. No periprosthetic fracture or lucency. No significant joint effusion. IMPRESSION: New right total knee arthroplasty without complication Shear Helper: HAMILTON Transcribe Date/Time: Oct 25 2020 3:56P Dictated by : FRANCE TIJERINA MD This examination was interpreted and the report reviewed and electronically signed by: FRANCE TIJERINA MD on Oct 25 2020 3:57PM EST [id number] Normal [facility] CNPMaryse 10-11-2020 CNPN Telephone (LOORRM) ----- JULIA VILLEDA ([id number]) 1950 F Date Time Provider Department 10/11/20 [facility] During your visit today, we recorded the following information about you: Idalia Serna Pss 10/11/2020 9:26 AM Signed Patient is calling in today and states that last night in bed she was lying on her back and she rolled over to her left side so she can sleep on her left side. She states that there was a sharp pain on the right side of the right knee and then it was a constant pain. She states that she is able to walk with her walker on it. She states she is unable to bend it a lot of put a lot of pressure on it. She is inquiring on what she should do? Please call patient back at phone number [phone]. Mendez Cosby PA-C 10/11/2020 12:21 PM Signed Spoke to the patient and I do not feel anything significant is going on. There is no mechanism of injury that would indicate something that would cause structural damage. I educated the patient and I let her know that she should take her prescription pain medication as it is still early on in the postoperative period if she is having a lot of pain. Mendez Cosby PA-C Allergies As of Date: 10/11/2020 Noted Allergy Reaction ADHESIVE TAPE (ROSINS) 01/10/2015 2 - Rash bee stings [Other] 11/05/2006 7 - Swelling LATEX 10/11/2015 2 - Rash Comments: Rash SHELLFISH 11/05/2006 8 - GI Upset IODINE 04/27/2009 2 - Rash PENICILLIN G 04/27/2009 2 - Rash Date Reviewed: 10/04/2020 Reviewed by: Clarita Fields RN - Fully Assessed Reason for Visit: Patient Update [1234] Prescriptions as of 10/11/2020 Sig: ASPIRIN 81 MG TABLET,DELAYED * Take 1 tablet by mouth twice * DOCUSATE SODIUM 100 MG CAPSULE Take 1 capsule by mouth twice* OXYCODONE 5 MG TABLET Take 1-2 tablets by mouth devante* ACETAMINOPHEN 325 MG TABLET Take 2 tablets by mouth every* NALOXONE 4 MG/ACTUATION NASAL* Use 1 spray in one nostril as* CLONAZEPAM 0.5 MG TABLET Take 0.5 mg by mouth. As need* SERTRALINE 50 MG TABLET Take 50 mg by mouth once tasha* FLUTICASONE PROPIONATE 50 MCG* LEVOTHYROXINE 100 MCG TABLET Take 100 mcg by mouth daily b* CLINDAMYCIN HCL 300 MG CAPSULE Take 2 tablets 1 hour prior t* CHOLECALCIFEROL (VITAMIN D3) * Take 6,000 Units by mouth. LISINOPRIL 20 MG TABLET Take 20 mg by mouth once tasha* SELENIUM 100 MCG TABLET Take 1 tablet by mouth once d* MAGNESIUM CITRATE ORAL Take by mouth. COMPOUNDED PRESCRIPTION tiest 2.5mg sr one cap twice * ONE-A-DAY MAXIMUM FORMULA TAB* Take one(1) tablet daily. Problem List As Of Date 10/11/2020 Noted Resolved Hip pain [M25.559] 07/27/2009 05/18/2015 Hip Arthritis [M16.10] 07/27/2009 Rotator cuff tendonitis [M75.80] 05/10/2015 Impingement syndrome of right shoulder [M75.41] 05/10/2015 Shoulder impingement syndrome [M75.40] 05/18/2015 09/13/2015 Right hand pain [M79.641] 09/27/2015 12/08/2018 Radial styloid tenosynovitis of right hand [M65*01/20/2016 Sprain of right shoulder [S43.401A] 10/09/2016 VONDA on CPAP [G47.33, Z99.89] 11/11/2018 Essential hypertension [I10] 11/11/2018 Other specified hypothyroidism [E03.8] 11/11/2018 OA (osteoarthritis) of knee [M17.10] 12/08/2018 S/P total knee replacement, left 12/08/18 [Z96.65*01/20/2019 Obesity, Class II, BMI 35-39.9 [E66.9] 10/03/2020 Encounter Status:Closed by ALEA MENDEZ on 10/11/20 Normal [facility] CBCon 10-04-2020 Absolute nRBC <0.01 [facility] (RBC) [Ratio] 12.8 % Normal 11.5-15.0 [facility] Hematocrit (Bld) [Volume fraction] 32.4 % Low 36.0-46.0 [facility] Hemoglobin (Bld) [Mass/Vol] 10.8 g/dL Low 11.5-15.5 [facility] MCH 27.6 pG Normal 26.0-34.0 [facility] MCHC (RBC) [Mass/Vol] 33.3 g/dL Normal 30.5-36.0 [facility] MCV (RBC) [Entitic vol] 82.7 fL Normal 80.0-100.0 [facility] Platelet mean volume (Bld) [Entitic vol] 10.0 fL Normal 9.0-12.7 [facility] Platelets (Bld) [#/Vol] 286 10*3/uL Normal 150-400 [facility] RBC (Bld) [#/Vol] 3.92 10*6/uL Normal 3.90-5.20 [facility] WBC (Bld) [#/Vol] 11.66 10*3/uL High 3.70-11.00 [facility] CNDSon 10-04-2020 [facility] HNO ID: [id number] Author: Olga Freedamn PA-C Service: Orthopaedic Surgery Author Type: Physician Senior Software Engineer Analytics Type: Discharge Summary Filed: 10/04/2020 10:35 AM Note Text: ----- Attestation signed by Best Valera MD at 10/04/2020 1:27 PM I have personally performed face to face diagnostic evaluation on this patient. I have examined the patient and reviewed radiographic studies and agree with plan as outlined above. Best Valera MD October 04, 2020 1:27 PM ----- Summary: S/P Right total knee arthroplasty; no complications DISCHARGE SUMMARY Patient Name: Julia Villeda : 1950 ADMISSION DATE: 10/03/2020 DISCHARGE DATE: 10/04/2020 Attending Physician: Best Valera MD Primary Diagnosis: Primary osteoarthritis of right knee [M17.11] Operations During Hospitalization: Procedure(s) (LRB): ARTHROPLASTY REPLACE JOINT TOTAL KNEE (Right) Procedures During Hospitalization: No procedures performed Hospital Course: Julia is a 70 year old female complaining of right Knee pain not responsive to a comprehensive course of conservative treatment. Right knee total arthroplasty was proposed and the patient wishes to proceed and was medically cleared prior to the procedure. Patient underwent a Right knee total arthroplasty and was transferred to the PACU in stable condition, She was then admitted to the hospital. Post operatively She did well. Post-operative HgB was stable and within acceptable range and remained there throughout the hospital stay not requiring transfusion. Wound was without sign of infection. She was able to actively participate in a physical and occupational therapy program for gait training and mobilization. Due to the operative findings and procedure performed which is consistent with a major orthopedic procedure, the postoperative analgesia will exceed the allowable morphine equivalent dose. PHYSICAL EXAM: General Appearance: Well appearing, alert, in no acute distress, well-hydrated, well nourished.. Skin: No erythema surrounding anterior knee incision. Lungs: Lungs clear to auscultation. No wheezing, rhonchi, rales.. Heart: RRR without murmur, gallop, or rubs. No ectopy. Extremities: R TKA incision covered with Aquacel dressing. Musculoskeletal: Pt able to actively flex hip, decreased active knee flexion. No pretibial edema or calf tenderness. Dorsiflexion AND plantarflexion 5/[address] Peripheral Pulses: R DP pulse palpable. Patient Condition at Discharge: Stable Discharge Disposition: Home with home PT/OT DISCHARGE MEDICATION: Current Discharge Medication List START taking these medications aspirin, enteric coated (ASPIRIN, ENTERIC COATED) 81 mg Take 81 mg by mouth twice daily. Qty: 84 tablet Refills: 0 docusate sodium (COLACE) 100 mg Take 100 mg by mouth twice daily. Qty: 20 capsule Refills: 0 oxyCODONE IR (ROXICODONE) 5-10 mg Take 5-10 mg by mouth every 4 hours as needed for Pain. Qty: 50 tablet Refills: 0 Associated Diagnoses:S/P TKR (total knee replacement) not using cement, right; Primary osteoarthritis of right knee acetaminophen (TYLENOL) 650 mg Take 650 mg by mouth every 4 hours as needed for Pain. Qty: 100 tablet Refills: 0 naloxone 4 mg/actuation nasal spray (NARCAN) Use 1 spray in one nostril as needed for overdose. May repeat every 2 to 3 min in alternating nostrils until medical assistance is available Qty: 2 Each Refills: 0 CONTINUE these medications which have NOT CHANGED clonazePAM (KlonoPIN) 0.5 mg Take 0.5 mg by mouth. As needed sertraline (ZOLOFT) 50 mg Take 50 mg by mouth once daily. fluticasone (FLONASE) 50 mcg/actuation nasal spray levothyroxine (SYNTHROID) 100 mcg Take 100 mcg by mouth daily before breakfast. clindamycin (CLEOCIN HCL) 300 mg capsule Take 2 tablets 1 hour prior to procedure and take 2 tablets 6 hours following procedure. Qty: 4 capsule Refills: 2 cholecalciferol (vitamin D3) 6,000 Units Take 6,000 Units by mouth. lisinopril (ZESTRIL, PRINIVIL) 20 mg Take 20 mg by mouth once daily. Selenium 1 tablet Take 1 tablet by mouth once daily. Refills: 0 MAGNESIUM CITRATE ORAL Take by mouth. COMPOUNDED PRESCRIPTION tiest 2.5mg sr one cap twice daily Qty: 0 Refills: 0 multivitamin with minerals (ONE-A-DAY MAXIMUM FORMULA) ORAL Tab Take one(1) tablet daily. Qty: 0 Refills: 0 STOP taking these medications mupirocin (BACTROBAN) 2 % ointment Comments: Reason for Stopping: acetaminophen (TYLENOL) 325 mg cap Comments: Reason for Stopping: Future Appointments: Appointments for Next 60 Days Date Time Provider Location Dept Phone 10/25/2020 10:00 AM [facility]EN[facility] COSBY [phone] 11/15/2020 11:30 AM [facility] [phone] This patient underwent major orthopedic surg (more content not included)... [facility] NURSING PROGon 10-04-2020 NURSING PROG HNO ID: [id number] Author: Clarita Fields, RN Service: Nursing Author Type: Registered Nurse Type: Nursing Progress Note Filed: 10/04/2020 12:47 PM Note Text: Nursing Progress Note Patient Name: Julia Villeda Patient Location[place] [address] [address] Daily Note: 0900 Pt resting- rt knee Aquacel dry and intact, positive pedal pulses bilat. Denies need for pain med at this time. Call light with in reach. 1130 Medicated with 5mg PO oxycodone for c/o knee pain. 1245 Reviewed discharge instructions, medications, follow up and wound care with pt and . Both state understanding. Pt dc;d home in stable condition. This note was completed by: Clarita Fields [facility] THERAPY NTon 10-04-2020 THERAPY NT HNO ID: [id number] Author: Amy Douglas, PT Service: Physical Therapy Author Type: Physical Therapist Type: Therapy (PT/OT/Speech/Resp) Filed: 10/04/2020 12:38 PM Note Text: Physical Therapy Evaluation SERVICE DATE: 10/04/2020 SERVICE TIME: 1109 to 1149 ROOM: [place] [address] Recommended Discharge Disposition: Home PT Anticipated Discharge Needs: Physical Assist at Home Physical Assist at Home for: Cleaning;Laundry;Shopping ;Transportation;Meals Recommended Discharge Equipment: No equipment needs anticipated PT 6 Clicks Score: 24 Precautions/Activity Restrictions: Weight Bearing Restrictions;Total Knee Replacement Extremity With Weight Bearing Restricted: Right Lower Extremity Right Lower Extremity Weight Bearing Status: WBAT Current Hospital Course: s/p R TKA / Reason for Hospital Admission: R TKA Relevant Past Medical History: includes: chronic lymphocytic thyroiditis, depression, Bradley disease, HTN, VONDA, CPAP, R RCR, foster Response to Therapy Interventions: Good participation in activities Physical Therapy Problem List: Decreased Range Of Motion;Decreased Strength;Functional Mobility Impairment;Balance Impaired Treatment Interventions: Education;Joint Mobility;Strengthening;Fu nctional Mobility Training Instructed pt to ambulate at home every hour when awake. Pt is ok for DC home today with home PT from PT standpoint, when cleared by medical/ORTHO and OT. Home Environment Patient Lives With: Spouse Assistance Available: multimedia engineer (spouse works days, hoping to do some working from home) Entry To Home: Stairs Number Of Stairs Into Home: 4 Number Of Stairs To Bed/Bath: 0 Tub/Shower Type: walk-in and tub shower combo Laundry: 1st floor - spouse can assist Equipment Owned: Cane;Standard Walker;Commode-3 in 1 (pt reports she has wheels that can attatch to standard walke) Prior Functional Level: Within Functional Limits Prior Functional Level Comments: Pt reports IND with ADLs and IADLs; + drives; retired Patient Report: Pt in the chair, needs to use the bathroom first CURRENT FUNCTIONAL STATUS: Most recent performance Current Functional Mobility Assist Level Additional Information Rolling Supine to Sit Stand By Assistance (HOB flat, OOB to R, able to lift R LE) Sit to Supine Stand By Assistance (HOB flat, into bed on R, uses UEs to A R LE into bed) Scooting Sit to Stand Independent Stand to Sit Independent Bed to Chair Toilet/Commode Gait Supervision Gait Device: Standard Walker Gait Distance (feet): 260 VC not to reach to set the walker too far out (pt with long legs) Stairs Stand By Assistance Stairs Device: Rail;Cane Number of Stairs: 4 Curb Step Stand By Assistance Device: Walker Car Transfer Blank de dios indicate activity not attempted Gait Deviations Right Lower Extremity: Heel strike during initial stance decreased;Push off during terminal stance decreased General Deviations/Observations: Improper distancing from assistive device Range of Motion: WFL Except (R knee AA flexion ~75 deg) Strength: WFL (R knee atleast 3/5) -HLM: 8: Walk 250 feet or more Learning/Educational Needs: Discharge Plan;Functional Activities/Mobility;Plan of Care;Precautions;Rehabili tation Techniques and Procedures Goals for Plan of Care: Patient /Caregiver Goals: Go Home Goals: Patient will demonstrate progress with functional mobility to allow safe discharge to home with available support and/or physical assistance. Rehab Potential: Good Patient will be discontinued from Physical Therapy when no further skilled needs are identified in this setting. PLAN: Treatment Frequency (times per week): Discontinue Therapy Services Reasons Therapy Services Discontinued: Independent in all functional mobility;Goals met Plan of Care developed with: Patient TREATMENT INTERVENTIONS: Therapy Diagnosis: Reduced mobility-other Interventions Provided: Evaluation;Therapeutic Exercise (55383);Gait Training (45398) $ Evaluation-Low (22430) Billed Units: 1 unit Therapeutic Exercise (01763) Treatment Minutes: 10 $ Therapeutic Exercise (81181) Billed Units: 1 unit Pt performed in supine position: AP, QS, GS x 10 B LE, pt instructed to do every hour while awake on their own. HS, SLR x10 B LE. Pt instructed on using a sheet to A with R HS. Calf stretch to R with 30 sec hold x 3 reps Pt performed in seated position: LAQ (also known as QBT) X10 B LE Reviewed seated knee extension stretch for pt to perform at home 3x/day. Instructed to sit with heel propped on another chair/table/etc out infront of patient, knee extended, and to hold as long as possible (~10-15 min if able) with ice pack on top of the knee. All exercises are to be completed at home 3x/day, 2 sets for 10, and both stretches to be completed 3x/day with holding times as listed above. Gait Training (14766) Treatment Minutes: 15 $ Gait Training (76640) Billed Units: 1 unit Kadeem (more content not included)... [facility] THERAPY NT HNO ID: [id number] Author: Amber Skelton OT/L Service: Occupational Therapy Author Type: Occupational Therapist Type: Therapy (PT/OT/Speech/Resp) Filed: 10/04/2020 10:17 AM Note Text: Occupational Therapy Evaluation SERVICE DATE: 10/04/2020 SERVICE TIME: 817 to 919 ROOM: [place] [address] Recommended Discharge Disposition: Home Recommended Discharge Disposition Comments: Pt returned demonstration and verbalized understanding of education provided. Pt is cleared to go home from OT standpoint. Anticipated Discharge Needs: Physical Assist at Home Physical Assist at Home for: Cleaning;Laundry;Shopping ;Transportation;Meals Recommended Discharge Equipment: No equipment needs anticipated OT 6 Clicks Score: 24 Precautions/Activity Restrictions: Weight Bearing Restrictions;Total Knee Replacement Extremity With Weight Bearing Restricted: Right Lower Extremity Right Lower Extremity Weight Bearing Status: WBAT Current Hospital Course: s/p R TKA 10/03 Reason for Hospital Admission: R TKA Relevant Past Medical History: includes: chronic lymphocytic thyroiditis, depression, Bradley disease, HTN, VONDA, CPAP, R RCR, foster Response to Therapy Interventions: Good participation in activities Continue skilled needs due to: (d/c OT) Occupational Therapy Problem List: Decreased Activity Tolerance;Decreased Range Of Motion;Decreased Strength;Functional Mobility Impairment;Balance Impaired;Sensory Deficit;Impaired Self Care Cognition/Communication Deficits Responsiveness: Alert, Awake Follows Commands: 3-step Commands Plan for next visit: (d/c OT) Home Environment Patient Lives With: Spouse Assistance Available: multimedia engineer Entry To Home: Stairs Number Of Stairs Into Home: 4 Number Of Stairs To Bed/Bath: 0 Tub/Shower Type: walk-in and tub shower combo Laundry: 1st floor - spouse can assist Equipment Owned: Cane;Standard Walker;Commode-3 in 1 (pt reports she has wheels that can attatch to standard walke) Prior Functional Level: Within Functional Limits Prior Functional Level Comments: Pt reports IND with ADLs and IADLs; + drives; retired Patient Report: I was a little scared after yesterday. Pt referring to R knee buckling yesterday (10/03) d/t numbness. Pt pleasant, agreeable to participate in session. CURRENT FUNCTIONAL STATUS: Most recent performance Current Activities of Daily Living Assist Level Additional Information Feeding Set Up Grooming Set Up Bathing Upper Body Set Up Bathing Lower Body Stand By Assistance Dressing Upper Body Set Up Dressing Lower Body Stand By Assistance Toileting Stand By Assistance Instrumental Activities of Daily Living Assist Level Additional Information Meal/Beverage Prep Cleaning Laundry Medication Management with Strategies Functional Mobility Assist Level Additional Information Rolling Supine to Sit Supervision Sit to Supine Scooting Sit to Stand Stand By Assistance Stand to Sit Stand By Assistance Bed to Chair Toilet/Commode Stand By Assistance Shower Functional Mobility Contact Guard Assistance;Additional Information Standard Walker 75' Blank de dios indicate activity not attempted Balance: Dynamic Sitting;Static Standing;Dynamic Standing Dynamic Sitting Balance: Good Patient accepts moderate challenge, able to maintain balance while picking up object off floor Static Standing Balance: Good Patient able to maintain balance without handhold support, limited postural sway Dynamic Standing Balance: Good Patient accepts moderate challenge, able to maintain balance while picking up object off floor Activity Tolerance: Standing Activity Standing Activity: grooming at sink and ambulation Standing Activity Tolerance (in minutes): 10 Learning/Educational Needs: Discharge Plan;Equipment;Family Education/Training;Functi onal Activities/Mobility;Plan of Care;Precautions;Rehabili tation Techniques and Procedures;Safety;Self Care Goals for Plan of Care: Patient /Caregiver Goals: Go Home Goals: Patient will demonstrate progress with self-care, cognitive and/or coping needs identified to allow safe discharge to home with available support and/or physical assistance. Rehab Potential: Good Patient will be discontinued from Occupational Therapy when no further skilled needs are identified in this setting. PLAN: Treatment Frequency (times per week): Discontinue Therapy Services Reasons Therapy Services Discontinued: Goals met Plan of Care developed with: Patient TREATMENT INTERVENTIONS: Therapy Diagnosis: Reduced mobility-other;Decreased activities of daily living (ADL);Muscle Weakness (generalized);General symptoms and signs-other Interventions Provided: Evaluation;Therapeutic Activity (39757);Self Penitentiary Management (67228) $ Evaluation-Low (35021) Billed Units: 1 unit Therapeutic Activity (32201) Treatment Minutes: 10 $ Therapeutic Activity (88070) Billed Units: 1 unit Self Penitentiary Managemen (more content not included)... Normal [facility] ANES POSTPROC EVALon 021 ANES POSTPROC EVAL HNO ID: [id number] Author: Akua Garcia MD Service: Anesthesiology Author Type: Anesthesiologist Type: Anesthesia Postprocedure Evaluation Filed: 10/03/2020 4:00 PM Note Text: POST ANESTHESIA EVALUATION NOTE : 1950 Procedure Summary Date: 10/03/20 Room / Location: OR03 / AV OR Anesthesia Start: 1323 Anesthesia Stop: 1555 Procedure: ARTHROPLASTY REPLACE JOINT TOTAL KNEE (Right Knee) Diagnosis: Primary osteoarthritis of right knee Surgeons: Best Valera MD Responsible Provider: Akua Garcia MD Anesthesia Type: spinal, regional, MAC ASA Status: 2 Anesthesia Type: spinal, regional, MAC Last vitals Vitals Value Taken Time BP 10/03/20 1600 Temp 98 10/03/20 1600 Pulse 52 10/03/20 1559 Resp 11 10/03/20 1559 SpO2 99 % 10/03/20 1559 Vitals shown include unvalidated device data. Post Anesthesia Patient Status Patient Evaluation: bedside. Anticipated Disposition: phase 2 then home. Neurological Status: aware and responsive. Pulmonary Status: breathing comfortably on room air Airway Control: returned to baseline unsupported. Cardiovascular Status: stable. Pain Management: clinically adequate - multimodal analgesia pain management approach Postoperative Hydration: acceptable. Intraoperative Events: no significant anesthesia events Recommendation: continue current plan of care and further care per PACU/ICU/floor team. No complications documented. SIGNATURE: Akua Garcia MD PATIENT NAME: Julia Villeda DATE: October 03, 2020 TIME: 4:00 PM CSN: [id number] [facility] ANES PRE-OPon 10-03-2020 ANES PRE-OP HNO ID: [id number] Author: Eleizer Child MD Service: Anesthesiology Author Type: Anesthesiologist Type: Anesthesia Preprocedure Evaluation Filed: 10/03/2020 1:19 PM Note Text: ANESTHESIOLOGY DAY OF SURGERY NOTE : 1950 Procedure(s) (LRB): ARTHROPLASTY REPLACE JOINT TOTAL KNEE (Right) Surgeon(s): Best Valera MD Estimated body mass index is 35.8 kg/m? as calculated from the following: Height as of 09/12/20: 171.5 cm (5' 7.5 ). Weight as of this encounter: 105.2 kg (232 lb). Most recent hematocrit and potassium results: Hematocrit 39.5 09/12/2020 Potassium 4.2 09/12/2020 Relevant Problems ANESTHESIA (+) VONDA on CPAP CARDIO (+) Essential hypertension ENDO (+) Other specified hypothyroidism PULMONARY (+) VONDA on CPAP Other (+) Hip arthritis I - PHYSICAL EVALUATION AIRWAY Patient intubated: No. Mallampati: II. TM distance: >3 FB. Neck ROM: full ROM without neurological symptoms. Mouth opening: adequate. Short neck: no. Thick neck: no DENTAL Normal dental observations. Dental findings: teeth intact. II - ANESTHESIA PLAN ASA Score: 2 Anesthetic Plan: spinal and regional Anesthetic plan additional comments: (pre op adductor canal block) + MAC Sedation. NPO Status: adequate Monitoring plan: Standard ASA. Postoperative analgesic plan: parenteral or oral opioids, multimodal analgesia and peripheral nerve block. Anesthetic Risks, Benefits, Alternatives, Personnel Discussed. Consent obtained from: patient.Patient / Surrogate agrees to blood products: yes DNR status not reviewed with patient and/or family prior to surgery. Significant changes in the patient condition since the History and Physical, not otherwise documented in primary service progress note: no. Potential Anesthesia issues that may suggest increased risk of complications or contraindication to planned procedure: none. Vitals Value Taken Time BP 167/72 10/03/20 1252 Pulse 104 10/03/20 1252 Resp 16 10/03/20 1252 Temp 36.7 ?C (98 ?F) 10/03/20 1252 SpO2 100 % 10/03/20 1252 Facility-Administered Medications as of 10/03/2020 Medication Dose Route Frequency - lidocaine 10 mg/mL (1 %) 1-2 mg injection (XYLOCAINE) 0.1-0.2 mL INTRADERMAL PRN - lactated ringers iv infusion 5-30 mL/hr INTRAVENOUS CONTINUOUS - vancomycin 1.5 g in D5W 250 mL (VANCOCIN) 1.5 g INTRAVENOUS Pre-Op Once - ciprofloxacin iv piggyback 400 mg in D5W 200 mL (CIPRO) 400 mg INTRAVENOUS Pre-Op Once - tranexamic acid 1,000 mg in NaCl 0.9% 100 mL (CYKLOKAPRON) 1,000 mg INTRAVENOUS Pre-Op Once - tranexamic acid 1,000 mg in NaCl 0.9% 100 mL (CYKLOKAPRON) 1,000 mg INTRAVENOUS ONCE - [COMPLETED] gabapentin 300 mg cap(s) (NEURONTIN) 300 mg ORAL ONCE - [COMPLETED] promethazine 12.5 mg tab(s) (PHENERGAN) 12.5 mg ORAL Pre-Op Once - [COMPLETED] oxyCODONE ER 10 mg tab(s) (OxyCONTIN) 10 mg ORAL ONCE - scopolamine 1 mg over 3 days 1 Patch (TRANSDERM-SCOP) 1 Patch TRANSDERMAL q 72 HR And - scopolamine - REMOVE PATCH OTHER q 72 HR - [COMPLETED] acetaminophen 650 mg tab(s) (TYLENOL) 650 mg ORAL ONCE Outpatient Medications as of 10/03/2020 Medication Sig - fluticasone (FLONASE) 50 mcg/actuation nasal spray - levothyroxine (SYNTHROID) 100 mcg tablet Take 100 mcg by mouth daily before breakfast. - clindamycin (CLEOCIN HCL) 300 mg capsule Take 2 tablets 1 hour prior to procedure and take 2 tablets 6 hours following procedure. - acetaminophen (TYLENOL) 325 mg cap Take by mouth. - cholecalciferol, vitamin D3, 4,000 unit cap Take 6,000 Units by mouth. - lisinopril (ZESTRIL, PRINIVIL) 20 mg tablet Take 20 mg by mouth once daily. - Selenium 100 mcg tab Take 1 tablet by mouth once daily. - MAGNESIUM CITRATE ORAL Take by mouth. - COMPOUNDED PRESCRIPTION tiest 2.5mg sr one cap twice daily - multivitamin with minerals (ONE-A-DAY MAXIMUM FORMULA) ORAL Tab Take one(1) tablet daily. I have interviewed and examined the patient. I have reviewed the medical record and/or the pre-anesthesia evaluation, pertinent labs, and test results. This contains updated information obtained within 48 hours of Surgery/Procedure. SIGNATURE: Eliezer Child MD PATIENT NAME: Julia Villeda DATE: October 03, 2020 TIME: 1:19 PM CSN: [id number] [facility] BRIEF OP NOTon 10-03-2020 BRIEF OP NOT HNO ID: [id number] Author: Best Valera MD Service: Orthopaedic Surgery Author Type: Physician Type: Brief Op Note Filed: 10/03/2020 3:39 PM Note Text: TOTAL KNEE ARTHROPLASTY BRIEF OPERATIVE / PROCEDURE NOTE LOG ID: [id number] Surgery/Procedure Date: 10/03/2020 Incision/Procedure Start Time: 2:01 PM Incision Close/Procedure End Time: 3:33 PM Surgeon(s)/Proceduralist( s) and Senior Software Engineer Analytics(s): Surgeon(s) and Role: * Best Valera MD - Primary Physician Senior Software Engineer Analytics: Irma Vines PA-C; Mendez Cosby PA-C Procedure(s): Procedure(s) (LRB): ARTHROPLASTY REPLACE JOINT TOTAL KNEE (Right) Anesthesia: Spinal Peripheral Block Type: Saphenous/Adductor Approach: Median parapatellar Findings: OA Tourniquet: 44Min at 300 mm Hg Estimated Blood Loss: 75 mls Specimens: None Complications: None Implant: Implant Name Type Inv. Item Serial No. Assembler Garment Form Lot No. LRB No. Used Action INSERT TRIATHLON 4 9MM TIBIAL BEARING CONDYLAR STABILIZE STERILE KNEE - [id number] Joint - Knee INSERT TRIATHLON 4 9MM TIBIAL BEARING CONDYLAR STABILIZE STERILE KNEE [employer] [id number] Right 1 Implanted COMPONENT TRITANIUM 35MM METAL 10MM PATELLAR ASYMMETRIC KNEE - [id number] Joint - Knee COMPONENT TRITANIUM 35MM METAL 10MM PATELLAR ASYMMETRIC KNEE [employer] [id number] Right 1 Implanted COMPONENT TRIATHLON 4 PA FEMORAL CRUCIATE RETAIN BEAD KNEE RIGHT - [id number] Joint - Knee COMPONENT TRIATHLON 4 PA FEMORAL CRUCIATE RETAIN BEAD KNEE RIGHT [facility] [id number] Right 1 Implanted BASEPLATE TRIATHALON 4 TRITANIUM TIBIAL COATED STERILE KNEE - [id number] Joint - Knee BASEPLATE TRIATHALON 4 TRITANIUM TIBIAL COATED STERILE KNEE [facility] [id number] Right 1 Implanted PIN 1/8IN FLUTE SQUARE STAINLESS STEEL 3.5IN FIXATION STERILE KNEE - [id number] Pin PIN 1/8IN FLUTE SQUARE STAINLESS STEEL 3.5IN FIXATION STERILE KNEE [facility] [id number] Right 1 Non-Implant Bearing Surface: Fixed Fixation: Cementless SSI Risk Factors: Obesity, BMI > 35 Constraint: Cruciate Retaining Other: None Pre-Op/Pre-Procedure Diagnosis: OA Post-Op/Post-Procedure Diagnosis: OA Weight Bearing Status: Full Weight Bearing SIGNATURE: Best Valera MD PATIENT NAME: Julia Villeda DATE: October 03, 2020 TIME: 3:28 PM [facility] OPERATIVE NOon 10-03-2020 OPERATIVE NO HNO ID: [id number] Author: Best Valera MD Service: Orthopaedic Surgery Author Type: Physician Type: Operative Report Filed: 10/04/2020 1:42 PM Note Text: [facility] - Operative Report JULIA VILLEDA : 1950 AGE: 70. SEX: F PATIENT TYPE: A HOSP SVC: OROR LOCATION: [facility] ATTENDING PHYSICIAN: Best Valera MD CSN NUMBER: [id number] DATE OF SURGERY/PROCEDURE: 10/03/2020 INCISION/PROCEDURE START TIME: 1401 hours. INCISION CLOSE/PROCEDURE END TIME: 1533 hours. PREOPERATIVE DIAGNOSIS: Right knee primary localized osteoarthritis. POSTOPERATIVE DIAGNOSIS: Right knee primary localized osteoarthritis. SURGEON: Best Valera MD BRIDGE WORKER: 1. Irma Vines PA-C. No qualified resident available. Ms. Vines assisted in positioning the patient, retraction, and closure of surgical incision. 2. Mendez Cosby PA-C. Mr. Cosby assisted in positioning the patient, retraction, and closure of surgical incision. SURGERY/PROCEDURE: Right total knee replacement. I performed the procedure. ANESTHESIA: Spinal with adductor canal block. FINDINGS: Tricompartmental osteoarthritis with grade 4 changes of the lateral and patellofemoral compartments. There were degenerative changes of the medial compartment. INDICATIONS FOR PROCEDURE: The patient is a 70-year-old woman postoperative left total knee replacement with right knee osteoarthritis and pain not responsive to comprehensive course of conservative treatment. We discussed right total knee replacement. We went over the procedure with her in detail, options, risks, expected outcome, and postoperative rehab. We discussed risk of infection, stiffness, perioperative medical problems, neurovascular injury, DVT, and persistent pain. We discussed surgical treatment in light of the COVID-19 pandemic. The patient had a good understanding. She wished to proceed. TOURNIQUET TIME: 44 minutes at 300 mmHg. ESTIMATED BLOOD LOSS: 75 mL. DRAINS: None. SPECIMENS: None. COMPLICATIONS: None apparent. IMPLANTS: Bradley Triathlon cementless knee system. A size #4 cruciate retaining femoral component, size #4 tibia, a 35 mm asymmetric patella and a size #4, 9 mm CS insert. DESCRIPTION OF PROCEDURE: Procedure and operative site were confirmed with the patient. The operative site was marked. All questions were answered. Preoperative sign-in was performed. The patient was brought into the operating room and placed on the operating room table. She had a spinal anesthetic administered by the Anesthesiologist. She had a right adductor canal block placed. Her right leg was then prepped with ChloraPrep and draped in usual sterile fashion using clear Biodrapes. A time-out was performed. The leg was exsanguinated and the tourniquet was inflated initially to 250 mmHg and was increased to 300. A midline incision was made. A medial parapatellar arthrotomy was then made. She had an effusion of clear synovial fluid. There was some synovitis and we did a synovectomy. The knee demonstrated areas of grade 4 chondromalacia of both the patellofemoral and lateral compartments. The medial compartment demonstrated degenerative changes primarily of the medial tibia with some grade 3 changes. The anterior cruciate ligament and menisci were debrided. The proximal and medial tibia was exposed subperiosteally. We now placed retractors to expose the knee. Her body habitus made the procedure more difficult. We placed our attention towards the femur. Using intramedullary alignment raya, the distal femoral cutting block was placed and the distal femoral osteotomy was made. We now exposed the tibia. Using the intramedullary alignment raya, referencing off the lateral tibia, the proximal tibial cutting block was placed. The proximal tibial osteotomy was then made. We now placed a tensiometer and set the external rotation on the femoral sizing guide, which measured a size #4. The rotational alignment drill holes were drilled. The anterior, posterior, and chamfer cutting block was now placed and appropriate cuts were made. We now checked the flexion and extension gaps, which were 9 mm. We now exposed the tibia. The size #4 tibial baseplate provided coverage on the tibia. We pinned the base plate in place. We elected to proceed with cementless implants as the bone quality was good. We now punched the tibia, punch for the cementless keel. We now impacted a size #4 cruciate retaining trial femoral component into place. We placed a 9 mm trial CS insert, which had full extension and flexion with excellent stability. We now placed our attention towards the patella. The patellar articular surface was cut in a freehand manner. The 35 mm patella provided the best coverage. I reamed the sockets for the pegs. We placed a trial 35 mm asymmetric patella and took the knee through range of motion with central tracking of the patella. At this p (more content not included)... Normal [facility] THERAPY NTon 10-03-2020 THERAPY NT HNO ID: [id number] Author: Amy Douglas, PT Service: Physical Therapy Author Type: Physical Therapist Type: Therapy (PT/OT/Speech/Resp) Filed: 10/03/2020 5:01 PM Note Text: PHYSICAL THERAPY MISSED VISIT SERVICE DATE: 10/03/2020 SERVICE TIME: 165 to 165 ROOM: AV Surgery (AV SURGERY) Attempted Evaluation. Patient not seen due to (Numbness). PT eval attempted in the PACU. Instructed pt on antiembolics to complete on her own. Pt unable to SLR R LE (quads still numb) and unable to feel her buttocks. Unable to attempt mobility d.t effects of spinal/block. Encouraged pt to get up with nursing later this evening when sensation returns. Will reattempt in the am to complete the full PT eval. SIGNATURE: Amy Douglas, PT PATIENT NAME: Julia Villeda DATE: October 03, 2020 TIME: 5:00 PM [facility] PreOp/PreProc COVIDon 2020 SARS-CoV-2 (COVID-19) RNA CAITLIN+probe Ql (Unsp spec) UPPER RESPIRATORY TRACT SWAB Normal [facility] Comment on above: Performed By: #### P OCOVD ####[address] [phone] SARS-CoV-2 (COVID-19) RNA CAITLIN+probe Ql (Unsp spec) Negative for COVID19 (SARS CoV2) by RT-PCR or equivalent method. Normal Negative for COVID19 (SARS CoV2) by RT-PCR or equivalent method. [facility] Comment on above: Result Comment: This test was developed and its performance characteristics determined by [facility] [place] [facility] [place]. This test has been authorized by FDA under an Emergency Use Authorization (EUA). This test has been validated in accordance with the FDA's Guidance Document Policy for Diagnostics Testing in Laboratories Certified to Perform High Complexity Testing under CLIA prior to Emergency use Authorization for Coronavirus Disease 2019 during the Public Health Emergency issued on August 01, 2019. Test performed by [facility], [facility] [place], [address], [place] [address]. Performed By: #### P OCOVD ####[facility] [place] [facility] [id number] [place], [place] [phone] Kimberly 09-22-2020 CNPN Telephone (ORAVON) ----- JULIA VILLEDA ([id number]) 1950 F Date Time Provider Department 09/22/20 BEST VALERA During your visit today, we recorded the following information about you: Ricardo Kim 09/22/2020 10:56 AM Signed Patient returning call to providers office. Patient can be reached at the below number. Phone number to be reached at is [phone] Ok to leave a detailed message? Yes Patient has some question before an upcoming procedure. Please contact the patient about this Anshul Branch MA 09/22/2020 1:42 PM Signed Returned patient's call and answered all of her questions and concerns. I encouraged her to call back if she has any more questions. She stated understanding. Allergies As of Date: 09/22/2020 Noted Allergy Reaction ADHESIVE TAPE (ROSINS) 01/10/2015 2 - Rash bee stings [Other] 11/05/2006 7 - Swelling LATEX 10/11/2015 2 - Rash Comments: Rash SHELLFISH 11/05/2006 8 - GI Upset IODINE 04/27/2009 2 - Rash PENICILLIN G 04/27/2009 2 - Rash Date Reviewed: 09/12/2020 Reviewed by: Rafaela Hdez LPN - Fully Assessed Reason for Visit: Appointment [186] Prescriptions as of 09/22/2020 Sig: MUPIROCIN 2 % TOPICAL OINTMENT Apply 0.5 inch with cotton sw* CLONAZEPAM 0.5 MG TABLET Take 0.5 mg by mouth. As need* SERTRALINE 50 MG TABLET Take 50 mg by mouth once tasha* FLUTICASONE PROPIONATE 50 MCG* LEVOTHYROXINE 100 MCG TABLET Take 100 mcg by mouth daily b* CLINDAMYCIN HCL 300 MG CAPSULE Take 2 tablets 1 hour prior t* ACETAMINOPHEN 325 MG CAPSULE Take by mouth. CHOLECALCIFEROL (VITAMIN D3) * Take 6,000 Units by mouth. LISINOPRIL 20 MG TABLET Take 20 mg by mouth once tasha* SELENIUM 100 MCG TABLET Take 1 tablet by mouth once d* MAGNESIUM CITRATE ORAL Take by mouth. COMPOUNDED PRESCRIPTION tiest 2.5mg sr one cap twice * ONE-A-DAY MAXIMUM FORMULA TAB* Take one(1) tablet daily. Problem List As Of Date 09/22/2020 Noted Resolved Hip pain [M25.559] 07/27/2009 05/18/2015 Hip Arthritis [M16.10] 07/27/2009 Rotator cuff tendonitis [M75.80] 05/10/2015 Impingement syndrome of right shoulder [M75.41] 05/10/2015 Shoulder impingement syndrome [M75.40] 05/18/2015 09/13/2015 Right hand pain [M79.641] 09/27/2015 12/08/2018 Radial styloid tenosynovitis of right hand [M65*01/20/2016 Sprain of right shoulder [S43.401A] 10/09/2016 VONDA on CPAP [G47.33, Z99.89] 11/11/2018 Essential hypertension [I10] 11/11/2018 Other specified hypothyroidism [E03.8] 11/11/2018 OA (osteoarthritis) of knee [M17.10] 12/08/2018 S/P total knee replacement, left 12/08/18 [Z96.65*01/20/2019 Encounter Status:Closed by ANSHUL BRANCH MA on 09/22/20 Normal [facility] APTTon 09-12-2020 aPTT Coag (Bld) [Time] 30.5 s Normal 23.0-32.4 [facility] Comment on above: Result Comment: Unfr actionated Heparin Therapeutic Ranges: Standard Heparin Nomogram: 53 to 78 seconds (anti-Xa level of 0.3 to 0.7 U/ml) Low Dose/ACS Nomogram: 49 to 67 seconds (anti-Xa level of 0.2 to 0.5 U/ml) Stroke Treatment Nomogram: 49 to 67 seconds (anti-Xa level of 0.2 to 0.5 U/ml) Note: The APTT therapeutic range has been determined for the current lot of laboratory APTT reagent in use throughout the [facility]. Performed By: #### P TT, BMP, PT, CBCDIF ####[place] [address] [place], [place] [phone] Basic Metabolic Panlon 09-12 Anion gap [Moles/Vol] 11 mmol/L Normal 9-18 [facility] Comment on above: Performed By: #### P TT, BMP, PT, CBCDIF ####[address] [phone] Calcium [Mass/Vol] 9.8 mg/dL Normal 8.5-10.2 [facility] Comment on above: Performed By: #### P TT, BMP, PT, CBCDIF ####[place] [phone] Chloride [Moles/Vol] 101 mmol/L Normal 97-105 [facility] Comment on above: Performed By: #### P TT, BMP, PT, CBCDIF ####[place] [address] [place] [place] [phone] CO2 [Moles/Vol] 27 mmol/L Normal 22-30 [facility] Comment on above: Performed By: #### P TT, BMP, PT, CBCDIF ####[place] [address] [place], [place] [phone] Creatinine [Mass/Vol] 0.73 mg/dL Normal 0.58-0.96 [facility] Comment on above: Performed By: #### P TT, BMP, PT, CBCDIF ####[place] [address], [place] [phone] eGFR- Amer. >60 Normal [facility] Comment on above: Performed By: #### P TT, BMP, PT, CBCDIF ####[facility] [place], [place] [phone] eGFR-All Other Races >60 Normal [facility] Comment on above: Result Comment: eGFR (Estimated GFR) Units of measure: mL/min/1.73 meters squared eGFR is derived from the reexpressed MDRD Study equation using the following parameters: serum creatinine, age, gender and race. The creatinine assay has been calibrated to be traceable to IDMS. An eGFR <60 mL/min/1.73m2 for >3 months is consistent with chronic kidney disease. Refer to KDOQI guidelines for clinical interpretation. In patients with unstable renal function, e.g. those with acute kidney injury, the eGFR may not accurately reflect actual GFR. Performed By: #### P TT, BMP, PT, CBCDIF ####[facility] [place], [place] [phone] Glucose [Mass/Vol] 93 mg/dL Normal 74-99 [facility] Comment on above: Result Comment: The [place] [employer] (ADA) provides guidance for cutoff values for fasting glucose and random glucose. The ADA defines fasting as no caloric intake for at least 8 hours. Fasting plasma glucose results between 100 to 125 mg/dL indicate increased risk for diabetes (prediabetes). Fasting plasma glucose results greater than or equal to 126 mg/dL meet the criteria for diagnosis of diabetes. In the absence of unequivocal hyperglycemia, results should be confirmed by repeat testing. In a patient with classic symptoms of hyperglycemia or hyperglycemic crisis, random plasma glucose results greater than or equal to 200 mg/dL meet the criteria for diagnosis of diabetes. Reference: Standards of Medical Care in Diabetes 2016, [place] [employer]. Diabetes Care. 2016.39(Suppl 1). Performed By: #### P TT, BMP, PT, CBCDIF ####[facility] [place], [place] [phone] Potassium [Moles/Vol] 4.2 mmol/L Normal 3.7-5.1 [facility] Comment on above: Performed By: #### P TT, BMP, PT, CBCDIF ####[place] [address] [place] [place] [phone] Sodium [Moles/Vol] 139 mmol/L Normal 136-144 [facility] Comment on above: Performed By: #### P TT, BMP, PT, CBCDIF ####[place] [address] [place] [phone] Urea nitrogen [Mass/Vol] 15 mg/dL Normal 7-21 [facility] Comment on above: Performed By: #### P TT, BMP, PT, CBCDIF ####[place] [address] [place] [place] [phone] CBC and Differentialon 09-12 Abs Baso 0.04 k/uL Normal <0.11 [facility] Comment on above: Performed By: #### P TT, BMP, PT, CBCDIF ####[place] [address] [place] [phone] Abs Kingman 0.61 k/uL Normal <0.87 [facility] Comment on above: Performed By: #### P TT, BMP, PT, CBCDIF ####[place] [phone] Abs Neut 3.86 k/uL Normal 1.45-7.50 [facility] Comment on above: Performed By: #### P TT, BMP, PT, CBCDIF ####[place] [address], [place] [phone] Absolute nRBC <0.01 Normal <0.01 [facility] Comment on above: Performed By: #### P TT, BMP, PT, CBCDIF ####[place] [address] [place] [phone] Basophils/100 WBC (Bld) 0.6 % Normal [facility] Comment on above: Performed By: #### P TT, BMP, PT, CBCDIF ####[place] [address] [place] [phone] DTYPE Auto Diff Normal [facility] Comment on above: Performed By: #### P TT, BMP, PT, CBCDIF ####[place] [address] [place] [phone] Eosinophils (Bld) [#/Vol] 0.43 10*3/uL Normal <0.46 [facility] Comment on above: Performed By: #### P TT, BMP, PT, CBCDIF ####[place] [address] [place] [phone] Eosinophils/100 WBC (Bld) 6.7 % Normal [facility] Comment on above: Performed By: #### P TT, BMP, PT, CBCDIF ####[place] [address] [place] [phone] Erythrocyte distribution width (RBC) [Ratio] 13.0 % Normal 11.5-15.0 [facility] Comment on above: Performed By: #### P TT, BMP, PT, CBCDIF ####[place] [address] [place] [phone] Hematocrit (Bld) [Volume fraction] 39.5 % Normal 36.0-46.0 [facility] Comment on above: Performed By: #### P TT, BMP, PT, CBCDIF ####[place] [address] [place] [phone] Hemoglobin (Bld) [Mass/Vol] 12.4 g/dL Normal 11.5-15.5 [facility] Comment on above: Performed By: #### P TT, BMP, PT, CBCDIF ####[place] [address] [place] [phone] Lymphocytes (Bld) [#/Vol] 1.48 10*3/uL Normal 1.00-4.00 [facility] Comment on above: Performed By: #### P TT, BMP, PT, CBCDIF ####[place] [address], [place] [phone] Lymphocytes/100 WBC (Bld) 23.0 % Normal [facility] Comment on above: Performed By: #### P TT, BMP, PT, CBCDIF ####[place] [address] [place] [phone] MCH 27.0 pG Normal 26.0-34.0 [facility] Comment on above: Performed By: #### P TT, BMP, PT, CBCDIF ####[place] [address] [place] [phone] MCHC (RBC) [Mass/Vol] 31.4 g/dL Normal 30.5-36.0 [facility] Comment on above: Performed By: #### P TT, BMP, PT, CBCDIF ####[place] [address] [place] [phone] MCV (RBC) [Entitic vol] 85.9 fL Normal 80.0-100.0 [facility] Comment on above: Performed By: #### P TT, BMP, PT, CBCDIF ####[place] [address] [place] [phone] Monocytes/100 WBC (Bld) 9.5 % Normal [facility] Comment on above: Performed By: #### P TT, BMP, PT, CBCDIF ####[place] [address] [place] [phone] Neutrophils/100 WBC (Bld) 60.2 % Normal [facility] Comment on above: Performed By: #### P TT, BMP, PT, CBCDIF ####[place] [address] [place] [phone] NRBCs 0.0 /100 WBC Normal 0 [facility] Comment on above: Performed By: #### P TT, BMP, PT, CBCDIF ####[address] [phone] Platelet mean volume (Bld) [Entitic vol] 10.3 fL Normal 9.0-12.7 [facility] Comment on above: Performed By: #### P TT, BMP, PT, CBCDIF ####[address] [phone] Platelets (Bld) [#/Vol] 282 10*3/uL Normal 150-400 [facility] Comment on above: Performed By: #### P TT, BMP, PT, CBCDIF ####[address] [phone] RBC (Bld) [#/Vol] 4.60 10*6/uL Normal 3.90-5.20 [facility] Comment on above: Performed By: #### P TT, BMP, PT, CBCDIF ####[address] [phone] WBC (Bld) [#/Vol] 6.44 10*3/uL Normal 3.70-11.00 [facility] Comment on above: Performed By: #### P TT, BMP, PT, CBCDIF ####[address] [phone] HISTORY PHYSICALon HISTORY PHYSICAL HNO ID: [id number] Author: Jailene Renner Service: ? Author Type: Nurse Practitioner Type: HANDP Filed: 09/13/2020 10:47 AM Note Text: HISTORY AND PHYSICAL EXAMINATION SERVICE DATE: 09/12/2020 SERVICE TIME: 10:48 AM PRIMARY CARE PHYSICIAN: Nancy Jha DO REASON FOR VISIT: Julia Villeda is a 70 year old female who is scheduled for ARTHROPLASTY REPLACE JOINT TOTAL KNEE Right at the request of Dr. [facility] for consultation. My final recommendation will be communicated back to the requesting physician by way of shared medical record or letter. 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 ? Currently the pain in the joint is rated at 3 out of 10 with minimal activity.. The pain is described as aching and stiffness. Relieving factors include ice and over the counter medication. There is no incident that lead to this pain. Patient states pain today ? PAST MEDICAL HISTORY Diagnosis Date - Chronic lymphocytic thyroiditis 1991 - Depression - Bradley's disease - Hypertension - Hypothyroidism - VONDA on CPAP - PMH - PAST MEDICAL HISTORY OF Right hip problems. PAST SURGICAL HISTORY Procedure Laterality Date - ARTHROSC ROTATOR CUFF REPAIR Right 05/18/15 - PAST SURGICAL HISTORY OF 1988 D and C because of heavy bleeding. Her Hb was 6.2%. She refused transfusion. - PAST SURGICAL HISTORY OF 2002 Colonoscopy - REMOVAL GALLBLADDER Cholecystectomy - TOTAL ABDOM HYSTERECTOMY 04/2014 Hysterectomy, MONIKA - TOTAL KNEE REPLACEMENT Left 12/08/2018 FAMILY HISTORY Problem Relation Age of Onset - Ischemic Heart Disease Father Three MIs. - Skin Cancer Father - other (dementia) Father - Colon Cancer Mother In her 30s. - Thyroid Mother Received iodine pills when she was young. Soon before she her thyroid was very abnormal. - Stroke Mother - Thyroid Maternal Grandmother SOCIAL HISTORY: Social History Tobacco Use - Smoking status: Never Smoker - Smokeless tobacco: Never Used Substance Use Topics - Alcohol use: Never - Drug use: Never Prior to Admission medications as of 09/12/20 1052 Medication Sig Last Dose Taking clonazePAM (KLONOPIN) 0.5 mg tablet Take 0.5 mg by mouth. As needed Yes sertraline (ZOLOFT) 50 mg tablet Take 50 mg by mouth once daily. Yes fluticasone (FLONASE) 50 mcg/actuation nasal spray Yes levothyroxine (SYNTHROID) 100 mcg tablet Take 100 mcg by mouth daily before breakfast. Yes clindamycin (CLEOCIN HCL) 300 mg capsule Take 2 tablets 1 hour prior to procedure and take 2 tablets 6 hours following procedure. Yes acetaminophen (TYLENOL) 325 mg cap Take by mouth. Yes cholecalciferol, vitamin D3, 4,000 unit cap Take 6,000 Units by mouth. Yes lisinopril (ZESTRIL, PRINIVIL) 20 mg tablet Take 20 mg by mouth once daily. Yes Selenium 100 mcg tab Take 1 tablet by mouth once daily. Yes MAGNESIUM CITRATE ORAL Take by mouth. Yes COMPOUNDED PRESCRIPTION tiest 2.5mg sr one cap twice daily Yes multivitamin with minerals (ONE-A-DAY MAXIMUM FORMULA) ORAL Tab Take one(1) tablet daily. Yes Medication Comments documented by Rafaela Hdez LPN on 09/12/2020 at 1051. 07/28 08/19 [employer] ALLERGIES Allergen Reactions - Adhesive Tape (Milagro* Rash - Bee Stings [Other] Swelling - Latex Rash Rash - Shellfish GI Upset - Iodine Rash - Penicillin G Rash REVIEW OF SYSTEMS: PAIN ASSESSMENT: Pain Pain Level: 6 Pain Location: Knee-Right Description: Aching;Sharp Duration Amount of Time: 7 Duration Units: Months Frequency: Continuous Intervention: Cold;Medication Comments: Tylenol. General: No weight loss, malaise or fevers. Neuro: No history of TIA's, stroke, DIRECTOR [employer]ULATORY AGENCY tumor, impaired sensorium, hemiplegia, paraplegia or quadraplegia. No neurological symptoms or problems. Respiratory: Positive for VONDA- CPAP at night No history of current cough or dyspnea, or pneumonia in the past 6 weeks Cardiovascular: Positive for: Hypertension no history of angina, CHF, [place], cardiac surgery or stents. Denies rest pain, gangrene or revascularization/amputat ion for PVD GI: No history of GI symptoms or problems. No history of esophageal varices, recent ascites, or ETOH greater than 2 drinks per day. : No history of dysuria, frequency or incontinence,, stones or chronic kidney disease (more content not included)... Normal [facility] Protimeon 09-12-2020 PT INR 1.0 Normal 0.9-1.3 [facility] Comment on above: Result Comment: Marti min K Antagonist (VKA) Therapeutic Range: INR 2 to 3 (Target INR of 2.5) Note: For patients treated with VKA drugs, such as warfarin, the [employer] 2012 Guideline recommends a therapeutic INR range of 2 to 3 (target INR of 2.5). This recommendation includes high-risk patients with antiphospholipid syndrome with previous arterial or venous thromboembolism, current-generation mechanical or bioprosthetic aortic heart valve replacement. Note: Patients with mechanical aortic valve replacement and additional risk factors for thromboembolic events (atrial fibrillation, previous thromboembolism, LV dysfunction, hypercoagulable conditions) or an older generation mechanical AVR (i.e., ball in-Cage) or any mechanical MVR should have a INR therapeutic range of 2.5 to 3.5 (target INR of 3). Patrick GH, et al. Chest 2012, 141:7S-47S Nicolette RA, et al. [facility] 2017, 70: 252-289 Performed By: #### P TT, BMP, PT, CBCDIF ####[place] [address] [address] [place], [place] [phone] PT Sec 10.6 sec Normal 9.7-13.0 [facility] Comment on above: Performed By: #### P TT, BMP, PT, CBCDIF ####[address], [place] [phone] Type and SCR (30D)on 021 ABO/RH(D) Positive Normal [facility] Urinalysis with Microscopico n 09-12-2020 Bilirubin, Urine Negative Normal Negative [facility] Comment on above: Performed By: #### U AWMIC ####[facility], [place] [phone] Clarity (U) Clear Normal Clear [facility] Comment on above: Performed By: #### U AWMIC ####[facility], [place] [phone] Color (U) Light Yellow Critically abnormal Yellow [facility] Comment on above: Performed By: #### U AWMIC ####[place] [address] [address] [place] [phone] Comments SEE COMMENT Normal [facility] Comment on above: Result Comment: N/A Performed By: #### U AWMIC ####[place] [address] [address] [place] [phone] Epithelial cells LM Ql (Urine sed) SEE COMMENT Normal [facility] Comment on above: Result Comment: Few Squamous Epithelial Cells Performed By: #### U AWMIC ####[place] [address] [address] [place] [phone] Glucose Ql (U) Negative Normal Negative [facility] Comment on above: Performed By: #### U AWMIC ####[place] [address] [address] [place] [phone] Hemoglobin/Blood,Ur Negative Normal Negative [facility] Comment on above: Performed By: #### U AWMIC ####[place] [address] [place] [phone] Ketones Ql (U) Negative Normal Negative [facility] Comment on above: Performed By: #### U AWMIC ####[place] [address] [place] [phone] Leukest Negative Normal Negative [facility] Comment on above: Performed By: #### U AWMIC ####[place] [address] [address] [place] [phone] Nitrite Ql (U) Negative Normal Negative [facility] Comment on above: Performed By: #### U AWMIC ####[place] [address] [place] [phone] pH (U) 7.0 [pH] Normal 5.0-8.0 [facility] Comment on above: Performed By: #### U AWMIC ####[place] [address] [place] [phone] Protein, Urine Negative Normal Negative [facility] Comment on above: Performed By: #### U AWMIC ####[facility], [place] [phone] RBC 0-3 Normal 0-3 [facility] Comment on above: Performed By: #### U AWMIC ####[place] [id number], [place] [phone] Specific [place], Ur 1.011 Normal 1.005-1.030 [facility] Comment on above: Performed By: #### U AWMIC ####[place] [address] [place] [phone] Urine Nikolay Comment SEE COMMENT [facility] Comment on above: Result Comment: N/A Performed By: #### U AWMIC ####[place] [address] [employer] Environmental[place], [place] [phone] Urobilinogen (U) [Mass/Vol] Negative Normal Negative [facility] Comment on above: Performed By: #### U AWMIC ####[place] [address] [place] [phone] WBC 0-5 Normal 0-5 [facility] Comment on above: Performed By: #### U AWMIC ####[facility] [place], [place] [phone] Urine Cultureon 09-12-2020 Bacteria identified Cx Nom (U) Sp. Request/Comment: - Specimen received in preservative Culture Result - 10,000 - <50,000 CFU/ml Normal urogenital ritesh Normal [facility] Comment on above: Performed By: #### U RCUL ####[place] [address] [address], [place] [phone] Vital Signs Date Time Vital Sign Value Performing Clinician Facility 09-30-2023 10:28-0400 Diastolic blood pressure 84 mm[Hg] Mary Alice Tatum MD Work Phone: [facility] 09-30-2023 10:28-0400 Systolic blood pressure 140 mm[Hg] Mary Alice Tatum MD Work Phone: [facility] 09-30-2023 09:56-0400 Body height 170.2 cm Mary Alice Tatum MD Work Phone: [facility] 09-30-2023 09:56-0400 Body mass index (BMI) [Ratio] 37.78 kg/m2 Mary Alice Tatum MD Work Phone: [facility] 09-30-2023 09:56-0400 Body weight 109.41 kg Mary Alice Tatum MD Work Phone: [facility] 09-30-2023 09:56-0400 Heart rate 76 /min Mary Alice Tatum MD Work Phone: [facility] 09-25-2023 10:49-0400 Diastolic blood pressure 86 mm[Hg] Crista [address] [place] [address] 09-25-2023 10:49-0400 Heart rate 75 /min [address] 09-25-2023 10:49-0400 Systolic blood pressure 128 mm[Hg] [address] 08-26-2023 11:34-0400 Body height 171.5 cm Mary Alice Tatum MD Work Phone: [facility] 08-26-2023 11:34-0400 Body mass index (BMI) [Ratio] 36.42 kg/m2 Mary Alice Tatum MD Work Phone: [facility] 08-26-2023 11:34-0400 Body weight 107.05 kg Mary Alice Tatum MD Work Phone: [facility] 08-26-2023 11:34-0400 Diastolic blood pressure 80 mm[Hg] Mary Alice Tatum MD Work Phone: [facility] 08-26-2023 11:34-0400 Heart rate 86 /min Mary Alice Tatum MD Work Phone: [facility] 08-26-2023 11:34-0400 Systolic blood pressure 130 mm[Hg] Mary Alice Tatum MD Work Phone: [facility] 08-26-2023 09:54-0400 Body height 172.72 cm DO Nancy Petznick Work Phone: [facility] 08-26-2023 09:54-0400 Body mass index (BMI) [Ratio] 35.7 kg/m2 DO Nancy Petznick Work Phone: [facility] 08-26-2023 09:54-0400 Body weight 106.59 kg DO Nancy Petznick Work Phone: [facility] 08-26-2023 09:54-0400 Heart rate 86 /min DO Nancy Petznick Work Phone: [facility] 08-26-2023 09:54-0400 SaO2% (BldA) [Mass fraction] 97 % DO Nancy Petznick Work Phone: [facility] 02-27-2023 10:15-0400 Body height 172.72 cm Darek Otter Tail II Other [employer] Other 02-27-2023 10:15-0400 Body mass index (BMI) [Ratio] 35.7 kg/m2 Darek Bernardo II Other [employer] Other 02-27-2023 10:15-0400 Body weight 106.51 kg Darek Bernardo II Other [employer] Other 02-11-2023 15:10-0400 Diastolic blood pressure 56 mm[Hg] DO Nancy Petznick Work Phone: [facility] 02-11-2023 15:10-0400 Heart rate 59 /min DO Nancy Petznick Work Phone: [facility] 02-11-2023 15:10-0400 Respiratory rate 18 /min DO Nancy Petznick Work Phone: [facility] 02-11-2023 15:10-0400 SaO2% (BldA) [Mass fraction] 95 % DO Nancy Petznick Work Phone: [facility] 02-11-2023 15:10-0400 Systolic blood pressure 121 mm[Hg] DO Nancy Petznick Work Phone: [facility] 02-11-2023 12:19-0400 Body temperature 98 [degF] DO Nancy Petznick Work Phone: [facility] 02-11-2023 11:34-0400 Inhaled oxygen flow rate 8 L/min DO Nancy Petznick Work Phone: [facility] 02-11-2023 10:29-0400 Body height 171.45 cm DO Nancy Petteaick Work Phone: [facility] 02-11-2023 10:29-0400 Body mass index (BMI) [Ratio] 36 kg/m2 DO Nancy Petznick Work Phone: [facility] 02-11-2023 10:29-0400 Body weight 106 kg DO Nancy Petznick Work Phone: [facility] 01-02-2023 10:15-0400 Body height 172.72 cm Darek Dodgeisle II Other [employer] Other 01-02-2023 10:15-0400 Body mass index (BMI) [Ratio] 35.27 kg/m2 Darek Otter Tail II Other [employer] Other 01-02-2023 10:15-0400 Body weight 105.24 kg Darek Otter Tail II Other [employer] Other 10-17-2022 18:30-0400 Diastolic blood pressure 77 mm[Hg] DO Nancy Petznick Work Phone: [facility] 10-17-2022 18:30-0400 Heart rate 80 /min DO Nancy Petznick Work Phone: 4(258)894-091603 [address] 10-17-2022 18:30-0400 Respiratory rate 18 /min DO Nancy Petznick Work Phone: 7(688)862-050120 [place] [address] 10-17-2022 18:30-0400 SaO2% (BldA) [Mass fraction] 97 % DO Nancy Petznick Work Phone: 9(360)226-064820 [place] [address] 10-17-2022 18:30-0400 Systolic blood pressure 149 mm[Hg] DO Nancy Petznick Work Phone: 5(530)258-537220 [place] [address] 10-17-2022 16:30-0400 Diastolic blood pressure 77 mm[Hg] DO Nancy Petznick Work Phone: 2(131)428-405420 [place] [address] 10-17-2022 16:30-0400 Heart rate 72 /min DO Nancy Petznick Work Phone: 9(619)093-831220 [place] [address] 10-17-2022 16:30-0400 Respiratory rate 18 /min DO Nancy Petznick Work Phone: 1(388)268-143520 [place] [address] 10-17-2022 16:30-0400 SaO2% (BldA) [Mass fraction] 97 % DO Nancy Petznick Work Phone: 0(980)822-324220 [place] [address] 10-17-2022 16:30-0400 Systolic blood pressure 164 mm[Hg] DO Nancy Petznick Work Phone: 8(926)261-406020 [place] [address] 10-17-2022 14:59-0400 Body height 171.45 cm DO Nancy Petznick Work Phone: 2(946)137-384720 [place] [address] 10-17-2022 14:59-0400 Body temperature 97.5 [degF] DO Nancy Petznick Work Phone: 7(374)183-802120 [place] [address] 10-17-2022 14:59-0400 Body weight 106.15 kg DO Nanyc Petznick Work Phone: 9(329)862-932203 [address] 06-20-2022 15:30-0500 Body height 172.72 cm Darek Otter Tail II Other [employer] Other 06-20-2022 15:30-0500 Body mass index (BMI) [Ratio] 35.27 kg/m2 Darek Billle II Other [employer] Other 06-20-2022 15:30-0500 Body weight 105.24 kg Darek Billle II Other [employer] Other 04-20-2021 14:30-0500 Body height 172.72 cm Mary Nixon Other [employer] Other 04-20-2021 14:30-0500 Body mass index (BMI) [Ratio] 35.58 kg/m2 Mray Nixon Other [employer] Other 04-20-2021 14:30-0500 Body temperature 95.5 [degF] Mary Nixon Other [employer] Other 04-20-2021 14:30-0500 Body weight 106.14 kg Mary Nixon Other [employer] Other 04-20-2021 14:30-0500 Diastolic blood pressure 84 mm[Hg] Mary Nixon Other [employer] Other 04-20-2021 14:30-0500 SaO2% (BldA) [Mass fraction] 100 % Mary Nixon Other [employer] Other 04-20-2021 14:30-0500 Systolic blood pressure 143 mm[Hg] Mary Nixon Other [employer] Other Encounters Encounter Date Encounter Type Care Provider Facility Start: 10-16-2023 End: 10-16-2023 ambulatory NANCY Kasandra J[facility] Not Available Start: 10-02-2023 End: 10-02-2023 [facility] Start: 09-30-2023 End: 09-30-2023 ambulatory [facility] Start: 09-30-2023 End: 09-30-2023 Office outpatient visit 25 minutes Mary Alice Tatum MD Work Phone: [facility] Comment on above: History of PSVT (par oxysmal supraventricular tachycardia); Palpitations; Primary hypertension; RBBB; Bradley's disease; BMI 37.0-37.9, adult; Never smoked tobacco; High risk medication use; Medication course changed; Obstructive sleep apnea syndrome; Pre-syncope Start: 09-26-2023 End: 09-27-2023 ambulatory [facility] Start: 09-26-2023 End: 09-26-2023 Subsequent hospital visit by physician Crista Nath [facility] Start: 09-25-2023 End: 09-26-2023 ambulatory [facility] Start: 09-25-2023 End: 09-25-2023 Subsequent hospital visit by physician Crista Nath [facility] Comment on above: History of PSVT (par oxysmal supraventricular tachycardia); Palpitations; Pre-syncope; Abnormal EKG Start: 08-26-2023 End: 08-26-2023 ambulatory [facility] Ambulatory Start: 08-26-2023 End: 08-26-2023 Office consultation new/estab patient 60 min Mary Alice Tatum MD Work Phone: [facility] Comment on above: History of PSVT (par oxysmal supraventricular tachycardia); Palpitations; Primary hypertension; RBBB; Pre-syncope; Bradley's disease; Obstructive sleep apnea syndrome; Abnormal EKG Start: 08-26-2023 End: 08-26-2023 ambulatory DO Nancy Jha Work Phone: [facility] Work Phone: Start: 08-26-2023 End: 08-26-2023 Patient encounter procedure DO Nancy Petznick Work Phone: [facility] Work Phone: Start: 07-17-2023 End: 07-17-2023 ambulatory Nancy Petznick Facility:[facility] Start: 07-17-2023 End: 07-17-2023 ambulatory DO Nancy Petznick Work Phone: [facility] Work Phone: Start: 07-17-2023 End: 07-17-2023 Patient encounter procedure DO Nancy Petznick Work Phone: [facility]-Electrodiagnostic s Work Phone: Start: 06-25-2023 End: 06-25-2023 ambulatory NANCY C OLIVIAICK Not Available Start: 05-20-2023 End: 05-20-2023 ambulatory Referral Self Facility:[facility] Start: 05-20-2023 End: 05-20-2023 ambulatory DO Nancy Petznick Work Phone: [facility] Work Phone: Start: 05-20-2023 End: 05-20-2023 Patient encounter procedure DO Nancy Petznick Work Phone: [facility] Work Phone: Start: 05-09-2023 Postop follow up vis it related to original px [facility] Start: 05-09-2023 End: 05-09-2023 ambulatory DO Nancy Petznick Work Phone: [employer] Other Start: 05-09-2023 End: 05-09-2023 Patient encounter procedure DO Nancy Petznick Work Phone: [facility] Start: 05-09-2023 Patient encounter procedure DO Nancy Petznick Work Phone: [facility]- Start: 04-30-2023 End: 04-30-2023 ambulatory NANCY JHA Not Available Start: 04-19-2023 End: 04-19-2023 ambulatory FRANK Saha MARLINE Not Available Start: 04-17-2023 End: 04-17-2023 ambulatory DO Nancy Jha Work Phone: [facility] Work Phone: Start: 04-17-2023 End: 04-17-2023 Discharged Recurring DO Nancy Jha Work Phone: [facility]-Physical [facility] [place] Start: 03-27-2023 (Post-Op) Post-Op Darek Chang II [facility] Start: 03-27-2023 End: 03-27-2023 ambulatory Darek Chang II Facility:[facility] Start: 03-27-2023 End: 03-27-2023 ambulatory DO Nancy Jha Work Phone: [facility] Work Phone: Start: 03-27-2023 End: 03-27-2023 Patient encounter procedure DO Nancy Jha Work Phone: [facility] Start: 03-26-2023 Registered Recurring DO Gary Jha Work Phone: [facility] [place] Start: 02-27-2023 (Post-Op) Post-Op Darek Chang II [facility] Start: 02-27-2023 End: 02-27-2023 ambulatory Darek Chang II Other [employer] Other Start: 02-11-2023 Telephone encounter Darek Chang II [facility] Start: 02-11-2023 End: 02-11-2023 ambulatory Darek Chang II Facility:[facility] Start: 02-11-2023 End: 02-11-2023 Admission to same day surgery center DO Nancy Jha Work Phone: [facility] [place] Start: 02-11-2023 End: 02-11-2023 ambulatory DO Nancy Petznick Work Phone: [facility] Work Phone: Start: 02-05-2023 End: 02-05-2023 ambulatory Darek Billle II Other [employer] Other Start: 02-05-2023 Telephone encounter Darek Billle II [facility] Start: 02-01-2023 (Prolonged) Prolonge d Services Darek Otter Tail II [facility] Start: 02-01-2023 End: 02-01-2023 ambulatory Darek Billle II Other [employer] Other Start: 01-31-2023 Patient encounter procedure Darek Billle II [facility] Start: 01-31-2023 End: 01-31-2023 ambulatory Darek Dodgeisle II Facility:[facility] Start: 01-31-2023 End: 01-31-2023 ambulatory DO Nancy Petznick Work Phone: [facility] Work Phone: Start: 01-31-2023 End: 01-31-2023 Discharged Recurring DO Nancy Petznick Work Phone: [facility] [place] Start: 01-29-2023 End: 01-29-2023 ambulatory Darek Dodgeisle II Facility:[facility] Start: 01-29-2023 End: 01-29-2023 ambulatory DO Nancy Petznick Work Phone: [facility] Work Phone: Start: 01-29-2023 End: 01-29-2023 Patient encounter procedure DO Nancy Petznick Work Phone: [facility]Pre-Surgical Testing Work Phone: Start: 01-02-2023 End: 01-02-2023 ambulatory Darek Chang II Other [facility] [employer] Other Start: 01-02-2023 Office outpatient vi sit 25 minutes Darek Chang II [facility] Start: 12-27-2022 End: 12-27-2022 ambulatory Nancy Petznick Facility:[facility] Start: 12-27-2022 End: 12-27-2022 ambulatory DO Nancy Petznick Work Phone: [facility] Work Phone: Start: 12-27-2022 End: 12-27-2022 Patient encounter procedure DO Nancy Petznick Work Phone: [facility]-Electrodiagnostic s Work Phone: Start: 12-20-2022 End: 12-20-2022 ambulatory Nancy Petznick Facility:[facility] Start: 12-20-2022 End: 12-20-2022 ambulatory DO Nancy Petznick Work Phone: [facility] Work Phone: Start: 12-20-2022 End: 12-20-2022 Patient encounter procedure DO Nancy Petznick Work Phone: [facility] [place] Work Phone: Start: 11-29-2022 End: 11-29-2022 ambulatory Nancy Petznick Facility:[facility] Start: 11-29-2022 End: 11-29-2022 ambulatory DO Nancy Petznick Work Phone: [facility] Work Phone: Start: 11-29-2022 End: 11-29-2022 Patient encounter procedure DO Nancy Petznick Work Phone: [facility]Electrodiagnostic s Work Phone: Start: 11-20-2022 End: 11-20-2022 ambulatory Nancy Petznick Facility:[facility] Start: 11-20-2022 End: 11-20-2022 Patient encounter procedure DO [facility]nick [facility] [facility] [place] Work Phone: Start: 10-17-2022 End: 10-17-2022 Emergency department patient visit Frandy Pedersen Facility:[facility] Start: 10-17-2022 End: 10-17-2022 Emergency department patient visit DO Nancy Jha Work Phone: [facility]-Emergency Room Work Phone: Start: 09-10-2022 End: 09-10-2022 ambulatory MARGARITO JONES Facility:[facility] Start: 09-07-2022 Encounter for preprocedural cardiovascular examination [facility] Maria A [facility] Start: 09-07-2022 Encounter for preprocedural laboratory examination [facility] Start: 09-06-2022 End: 09-06-2022 ambulatory Connie Levine Facility:[facility] Start: 09-06-2022 End: 09-06-2022 ambulatory DO Nancy Petteaick Work Phone: [facility] Work Phone: Start: 09-06-2022 End: 09-06-2022 Patient encounter procedure DO Nancy Petteaick Work Phone: [facility]-Sleep Lab Work Phone: Start: 09-05-2022 End: 09-05-2022 ambulatory Darek Chang II Other [employer] Other Start: 09-05-2022 Office outpatient vi sit 25 minutes Darek Chang II [facility] Start: 08-30-2022 End: 08-31-2022 ambulatory MARGARITO JONES Facility:[facility] Start: 08-30-2022 End: 08-31-2022 Encounter for preprocedural cardiovascular examination MARGARITO Saha [facility] Facility:[facility] Start: 08-07-2022 End: 08-08-2022 ambulatory MARGARITO JONES Facility:[facility] Start: 07-04-2022 (Procedure) Short Keyshawn Cindykathy [facility] Start: 07-04-2022 End: 07-04-2022 ambulatory Keyshawn Acosta Other [facility] [employer] Other Start: 06-20-2022 End: 06-20-2022 Patient encounter procedure DO Nancy Petznick Work Phone: [facility]-XRay [facility] Start: 06-20-2022 End: 06-20-2022 ambulatory DO Nancy Petznick Work Phone: [facility] Work Phone: Start: 06-20-2022 [facility] visit new patient Darek cormier JAMAR TAPIA [facility] Start: 05-31-2022 End: 05-31-2022 ambulatory DO Nancy Petznick Work Phone: [facility] Work Phone: Start: 05-31-2022 End: 05-31-2022 Patient encounter procedure DO Nancy Petznick Work Phone: [facility]-Sleep Lab Work Phone: Start: 05-18-2022 End: 05-18-2022 ambulatory DO Nancy Petznick Work Phone: [facility] Work Phone: Start: 05-18-2022 End: 05-18-2022 Patient encounter procedure DO Nancy Petznick Work Phone: [facility] Start: 04-20-2021 End: 04-20-2021 ambulatory Mary Alicea Other [facility] [employer] Other Start: 04-20-2021 Office outpatient vi sit 15 minutes Mary Alicea [facility] Start: 03-07-2021 ([facility] C Vac) [facility] Co vid Vaccine Danielle Barros [facility] Procedures Date Procedure Procedure Detail Performing Clinician Start: 10-02-2023 ECG 12-LEAD MARY ALICE MOH AN Start: 09-30-2023 ECG 12-LEAD MARY ALICE SHERIDAN Start: 09-30-2023 FOLLOW UP IN CARDIOLOGY MARY ALICE TATUM Start: 09-30-2023 Ecg routine ecg w/le ast 12 lds w/i&r Mary Alice Tatum MD Work Phone: Start: 09-26-2023 NUCLEAR STRESS TEST NOE TATUM Start: 09-26-2023 Cv strs tst xers&/or rx cont ecg trcg only Mary Alice Tatum MD Work Phone: Start: 08-26-2023 ECG 12-LEAD MARY ALICE SHERIDAN Start: 08-26-2023 Ecg routine ecg w/le ast 12 lds w/i&r Mary Alice Tatum MD Work Phone: Start: 05-20-2023 Screening mammograph y of bilateral breasts DO Nancy Petteaick Work Phone: Start: 05-09-2023 Plain X-ray of right hip DO Nancy Petznick Work Phone: Start: 03-27-2023 Plain X-ray of right hip DO Nancy Petznick Work Phone: Start: 02-11-2023 Total replacement of right hip joint DO Nancy Petznick Work Phone: Start: 02-11-2023 Plain X-ray of right hip DO Nancy Petznick Work Phone: Start: 02-11-2023 Plain X-ray of right hip DO Nancy Petznick Work Phone: Start: 01-29-2023 Antibody screen Darek Chang II Comment on above: Order Comment: Date of Surgery: [id number] Result Comment: PERF ORMED BY: [place] [address] [place] [address] PATHOLOGIST FRAME CLEANER JAKE SAN M.D. Start: 12-20-2022 Methicillin resistan t Staphylococcus aureus culture DO Nancy Petznick Work Phone: Start: 10-17-2022 Plain chest X-ray DO Ma tthew Petznick Work Phone: Start: 06-20-2022 Plain X-ray of right hip DO Nancy Jha Work Phone: Start: 05-18-2022 End: 05-18-2022 Screening mammography of bilateral breasts DO Nancy Jha Work Phone: Start: 11-02-2021 Colonoscopy Mary Alice sheridan MD Work Phone: Start: 09-12-2020 Antibody screen Plan of Treatment Date Care Activity Detail Author Start: 11-03-2031 Screening for malignant neoplasm of colon [facility] Start: 12-30-2023 End: 12-30-2023 Patient encounter procedure 12/30/2023 9:30 AM EDT Office Visit [address] [place] [address] Mary Alice Tatum MD [address] [facility] [address] [place], [place] [id number] [facility] Start: 10-02-2023 End: 09-29-2024 ECG 12 Lead [facility] Service Area Work Phone: Comment on above: Expected: 10/02/2023 (Approximate), Expires: 09/29/2024 Start: 09-30-2023 End: 09-30-2023 Patient encounter procedure 09/30/2023 9:45 AM EDT Office Visit [address] [place] [phone] Mary Alice Tatum MD [address] [facility] [address] [place] [address] [facility] Start: 09-26-2023 End: 09-26-2023 Patient encounter procedure [facility] Start: 09-26-2023 Subsequent hospital visit by physician 09/26/2023 11:30 AM EDT Hospital Encounter [address] [facility] [address] [place] [id number] [facility] Start: 09-25-2023 End: 09-25-2023 Patient encounter procedure Frandy [facility] Start: 08-26-2023 End: 08-25-2025 NM Heart Perfusion W stress and W radionuclide IV Nuclear Stress Test Cardiac Nuclear Medicine Routine History of PSVT (paroxysmal supraventricular tachycardia) Palpitations Pre-syncope Abnormal EKG Expected: 08/26/2023 (Approximate), Expires: 08/25/2025 [facility] Service Area Work Phone: Comment on above: Expected: 08/26/2023 (Approximate), Expires: 08/25/2025 Start: 06-29-2023 COVID-19 Vaccine () COVID-19 Vaccine () [facility] Start: 06-29-2023 COVID-19 Vaccine () COVID-19 Vaccine () [facility] Start: 05-18-2023 Screening for malignant neoplasm of breast Mammogram [facility] Start: 02-11-2023 [facility] Start: 02-11-2023 [facility] Start: 02-11-2023 Physical therapy procedure [facility] Start: 01-29-2023 [facility] Start: 12-20-2022 MRSA Culture MRSA Culture [facility] Start: 10-17-2022 [facility] Start: 12-30-2018 DTaP/Tdap/Td Vaccine s (1 - Tdap) DTaP/Tdap/Td Vaccines (1 - Tdap) [facility] Start: 2012 RSV patient s and/or patients aged 60+ years (1 - 1-dose 60+ series) RSV patients and/or patients aged 60+ years (1 - 1-dose 60+ series) [facility] Start: 1970 Hepatitis C screening Hepatitis C [facility] Start: 1952 Lipid panel Lipid Panel [facility] Start: 1952 Screening for malignant neoplasm of colon [facility] Start: 1952 Thyroid stimulating hormone measurement TSH Level [facility] Start: 1952 Yearly Adult Physical Yearly Adult P [facility] Cotinine [Mass/volum e] in Serum or Plasma [facility] Nicotine [Mass/volum e] in Serum or Plasma [facility] End: 09-25-2023 NM Heart Perfusion W stress and W radionuclide IV [facility] Service Area Work Phone: Comment on above: Once for 1 Occurrenc es starting 09/25/2023 until 09/25/2023 Patient Education Acid Reflux, A dult and Adolescent ED [facility] Work Phone: Patient referral [facility] Work Phone: Immunizations Immunization Date Immunization Notes Care Provider Tutu acharya 03-08-2022 COVID-19 mRNA Bivale nt Booster (Pfizer) DO Nancy Incline [employer] Work Phone: [facility] 09-29-2021 COVID-19 mRNA, Comir geraldine (Pfizer) DO [employer] Work Phone: [facility] 03-07-2021 COVID-19 Pfizer Danielle Fitt Other [facility] 08-19-2020 COVID-19 mRNA, Comir geraldine (Pfizer) DO [employer] Work Phone: [facility] 07-28-2020 COVID-19 mRNA, Comir geraldine (Pfizer) DO [employer] Work Phone: [facility] 10-26-2015 influenza, seasonal, injectable Danielle Fitt Other [facility] 10-26-2015 pneumococcal polysaccharide vaccine, 23 valent Danielle Fitt Other [facility] Payers Date Payer Category Payer Private Health Insurance [facility] [id number] 2023-Present [address] [place] [address] [id number] 2022 Medicare [id number] 2022 Self-pay [id number] 1959 Private Health Insurance [id number] [id number] 1952 Unknown [id number] 2.16.840.1.030312.3.579. 2.593 1952 Unknown [id number] 2.16.840.1.771277.3.579. 2.593 1952 Unknown [id number] 2.16.840.1.445942.3.579. 2.593 1952 Unknown [id number] 2.16.840.1.061517.3.579. 2.124 1952 Unknown [id number] 2.16.840.1.326926.3.579. 2.124 1952 Unknown [id number] 2.16.840.1.165863.3.579. 2.124 1952 Unknown [id number] 2.16.840.1.606073.3.579. 2.1246 1952 Unknown [id number] 2.16.840.1.168114.3.579. 2.1246 1952 Unknown [id number] 2.16.840.1.605339.3.579. 2.124 1952 Unknown [id number] 2.16.840.1.950192.3.579. 2.124 1952 Unknown [id number] 2.16.840.1.349444.3.579. 2.1244 1952 Unknown [id number] 2.16.840.1.737973.3.579. 2.1259 1952 Unknown [id number] 2.16.840.1.793369.3.579. 2.1259 1952 Unknown [id number] 2.16.840.1.897827.3.579. 2.1259 1952 Unknown [id number] 2.16840.1.323998.3.579. 2.1259 Medicare Medicare-OP No Part B [id number] Private Health Insurance [facility] [id number] Unknown [facility] BC/BS [id number] Unknown [id number] 2.16840.1.716276.3.579. 2.531 Unknown [id number] 2.840.1.113820.3.579. 2.531 Unknown [id number] 2.840.1.846828.3.579. 2.531 Unknown [id number] 2.840.1.086145.3.579. 2.531 Unknown [id number] 2.840.1.830934.3.579. 2.531 Unknown [id number] 2.840.1.711749.3.579. 2.531 Unknown [id number] 2.16840.1.905019.3.579. 2.531 Unknown [id number] 2.16840.1.439022.3.579. 2.531 Unknown [id number] 2.840.1.667113.3.579. 2.531 Unknown [id number] 2.16840.1.049626.3.579. 2.531 Unknown [id number] 2.16840.1.562643.3.579. 2.531 Unknown [id number] 2.16840.1.984047.3.579. 2.531 Unknown [id number] 2.16840.1.115430.3.579. 2.531 Social History Date Type Detail Facility Unknown if ever smoked [facility] [employer] Other Start: 08-26-2023 End: 10-02-[address] [facility] [employer] Other Start: 1950 Sex Assigned At Female [facility] Start: 10-17-2022 End: 08-26-2023 Tobacco smoking status NHIS Never smoked tobacco (finding) [facility] Start: 08-26-2023 Tobacco use and exposure Smokeless tobacco non-user [facility] Work Phone: Start: 08-26-2023 End: 09-30-2023 Alcohol intake Lifetime non-drinker (finding) [facility] Work Phone: Start: 08-26-2023 End: 10-02-2023 History of Social function [facility] Work Phone: Start: 08-21-2023 Gender identity Identifies as female gender (finding) [facility] Work Phone: Start: 08-21-2023 Sexual orientation Heterosexual (finding) [facility] Work Phone: Start: 08-16-2023 End: 10-02-2023 Exposure to SARS-CoV-2 (event) Not sure [facility] Medical Equipment Procedure Code Equipment Code Equipment Origin al Text Equipment Identifier Dates Arthroplasty, hip, total, anterior approach Acetabular shell [id number] FDA Start: 02-11-2023 Arthroplasty, hip, total, anterior approach Ceramic femoral head prosthesis [id number] FDA Start: 02-11-2023 Arthroplasty, hip, total, anterior approach Coated hip femur prosthesis, modular ()[id number] FDA Start: 02-11-2023 Arthroplasty, hip, total, anterior approach Non-constrained polyethylene acetabular liner [id number] FDA Start: 02-11-2023 Goals Date Patient Goal Desired Activity /State Clinical Notes 10-03-2020 to 09-30-2023 Mary Alice Tatum MD - 09/30/2023 9:45 AM EDTPatient InstructionsMary Alice Tatum MD - 08/26/2023 11:15 AM EDTPatient Instructions Note Date & Type Note Facility 09-30-2023 History of Present illness Narrative Images from the original note were not included. Most recently seen on 08/26/2023. She presented for evaluation of palpitations and syncope. Holter monitor showed bursts of supraventricular tachycardia, tracings were not available for review. At last office visit we started metoprolol succinate 25 mg daily, magnesium oxide 400 mg twice daily, ordered Lexiscan Myoview, and my thought was to start flecainide if Lexiscan Myoview was negative. Subjective : She continues to have palpitations. Denies any chest pressure tightness or heaviness, denies presyncope or syncope. History so Far : 1. Primary hypertension 2. Increased BMI 3. Bradley's thyroid disease, on levothyroxine supplementation 4. Increased to BMI of 36 5. Multiple orthopedic surgeries, to include right rotator cuff repair, bilateral total knee replacements, right hip replacement, unable to walk on a treadmill. 6. Shellfish allergy-vomiting, has skin breakdown to topical iodine containing preparations 7. Right bundle branch block 8. Lexiscan Myoview September 2023-normal perfusion, LVEF 68%, transient ischemic dilatation 1.0. 9. Latex allergy, dye allergy. 10. Echocardiogram November 03-LVEF 60 to 65%, impaired relaxation pattern, trace tricuspid regurgitation, trace mitral regurgitation, no pericardial effusion, chamber dimensions are normal, RVSP 22 mmHg. Past Surgical History: She has a past surgical history that includes Colonoscopy; Total knee arthroplasty (Bilateral); Foot surgery (Left); Hip surgery (Right); Shoulder arthroscopy (Right); Hysterectomy; Dilation and curettage of uterus; and Laparoscopic colostomy. Objective Wt Readings from Last 3 Encounters: 09/30/23 109 kg (241 lb 3.2 oz) 08/26/23 107 kg (236 lb) Vitals: 09/30/23 0956 09/30/23 1028 BP: 140/82 140/84 BP Location: Right arm Left arm Patient Position: Sitting Sitting Pulse: 76 Weight: 109 kg (241 lb 3.2 oz) Height: 1.702 m (5' 7 ) Physical Exam: Expand All Collapse All Referred by Dr. Dey ref. provider found for Establish Care (Joelle jha) History Of Present Illness: Julia Villeda is a 73 y.o. female presenting with palpitations. Multiple comorbidities will be listed below. She is accompanied by her who is an electrical line mechanic. She reports having palpitations at a frequency of once or twice a year, has a diagnosis of SVT, they do not usually last long, but in the last few months they have increased in frequency intensity and duration. She may get them up to 3 times a week. In October or November 2022 when she had palpitations she had a syncopal episode, she found herself on the floor, no major injury. The palpitations are not precipitated by activity or meals. Sensation is that her heart is pounding out of her chest. Episodes last few seconds. A recent Holter monitor was interpreted to show bursts of supraventricular tachycardia, tracings are not available for review.. I have reviewed detailed notes by Dr. Jha. Patient does not report any chest pressure tightness or heaviness. Daily activity level is greater than 4 METS, does not report shortness of breath. Has lower extremity edema. 12 point review of systems is negative or noncontributory except as noted recent weight loss or weight gain he denies symptoms that are characteristic of obstructive sleep apnea Her BMI is excessive No bleeding diathesis No TIA or CVA type symptoms Past Medical History: 1. Primary hypertension 2. Increased BMI 3. Bradley's thyroid disease, on levothyroxine supplementation 4. Increased to BMI of 36 5. Multiple orthopedic surgeries, to include right rotator cuff repair, bilateral total knee replacements, right hip replacement, unable to walk on a treadmill. 6. Shellfish allergy-vomiting, has skin breakdown to topical iodine containing preparations 7.30-day event monitor August 2023 interpreted to show multiple brief runs of SVT with heart rate close to 170 bpm some of these appear to be symptomatic, palpitations and dizziness no bradycardia reported 8. Echocardiogram December 2022-LVEF 60 to 65% normal chamber dimensions trace mitral regurgitation trace tricuspid regurgitation no aortic stenosis or regurgitation normal IVC left atrial diameter 3.6 cm aortic root size 3.6 cm LV end-systolic diameter 2.9 cm TAPSE 2 cm left atrial volume index 27 mL/m . PA pressure 21 mmHg 9. EKG September 2020-normal sinus rhythm [place] interval 164 ms QRS duration 138 ms QTc 462 ms complete right bundle branch block 10. Obstructive sleep apnea on CPAP therapy. 11. Lexiscan Myoview September 2023-LVEF 68% transient ischemic dilatation 1.0 which is normal, normal perfusion. Past Surgical History: She has a past surgical history that includes Colonoscopy; Total knee arthroplasty (Bilateral); Foot surgery (Left); Hip surgery (Right); Shoulder arthroscopy (Right); Hysterectomy; Dilation and curettage of uterus; and Laparoscopic colostomy. Social History: She reports that she has never smoked. She has never used smokeless tobacco. She reports that she does not drink alcohol and does not use drugs. Family History: Family History Family History Problem Relation Name Age of Onset Other (colon cancer) Mother Stroke Mother Heart attack Father Dementia Father Skin cancer Father Colon cancer Other Allergies: Bee venom protein (honey bee), Shellfish containing products, Adhesive, Iodine, Latex, and Penicillin Outpatient Medications: Current Outpatient Medications Medication Instructions ascorbic acid (Vitamin C) 1,000 mg tablet clindamycin (Cleocin) 300 mg capsule 1 capsule, oral, 3 times daily clonazePAM (KLONOPIN) 0.5 mg, oral, 2 times daily PRN ferrous sulfate (325 mg ferrous sulfate) 325 mg, oral, Every other day levothyroxine (SYNTHROID, LEVOXYL) 100 mcg, oral, Daily before breakfast lisinopril 20 mg, oral, Daily multivitamin tablet 1 tablet, oral, Daily nitroglycerin (NITROSTAT) 0.4 mg, sublingual, Every 5 min PRN norethindrone ac-eth estradioL (Femhrt Low Dose) 0.5-2.5 mg-mcg tablet 1 tablet, oral, Daily selenium (SELENOMAX ORAL) 100 mcg/day, oral, Daily sertraline (ZOLOFT) 25 mg, oral, Daily RT vitamin D3-vitamin K2 1,250-200 mcg capsule Vitamin D3 Last Recorded Vitals: Vitals Vitals: 08/26/23 1134 BP: 130/80 BP Location: Left arm Patient Position: Sitting Pulse: 86 Weight: 107 kg (236 lb) Height: 1.715 m (5' 7.5 ) Physical Exam: GENERAL APPEARANCE: Well developed, well nourished, in no acute distress. CHEST: Symmetric and non-tender. INTEGUMENT: Skin warm and dry, without gross excoriationis or lesions. HEENT: No gross abnormalities, no jugular venous distention no carotid bruit or scleral icterus NECK: Supple, no JVD, no bruit. Thyroid not palpable. Carotid upstrokes normal. NEURO/PSHCY: Alert and oriented x3; appropriate behavior and responses and responses, with normal balance and coordination LUNGS: Clear to auscultation bilaterally; normal respiratory effort. HEART: Rate and rhythm regular with no evident murmur; no gallop appreciated. There are no rubs, clicks or heaves. ABDOMEN: Soft, nontender, no masses or bruits. MUSCULOSKELETAL: Status post bilateral knee replacement and right hip replacement. Ambulates without assistance. EXTREMITIES: Warm There is 1 + edema noted. PERIPHERAL VASCULAR: Pulses present and equally palpable; 2+ throughout. Current Outpatient Medications Medication Instructions ascorbic acid (Vitamin C) 1,000 mg tablet clindamycin (Cleocin) 300 mg capsule 1 capsule, oral, 3 times daily clonazePAM (KLONOPIN) 0.5 mg, oral, 2 times daily PRN dilTIAZem CD (CARDIZEM CD) 120 mg, oral, Daily ferrous sulfate (325 mg ferrous sulfate) 325 mg, oral, Every other day flecainide (TAMBOCOR) 50 mg, oral, 2 times daily levothyroxine (SYNTHROID, LEVOXYL) 100 mcg, oral, Daily before breakfast lisinopril 20 mg, oral, Daily magnesium oxide 400 mg, oral, 2 times daily multivitamin tablet 1 tablet, oral, Daily nitroglycerin (NITROSTAT) 0.4 mg, sublingual, Every 5 min PRN norethindrone ac-eth estradioL (Femhrt Low Dose) 0.5-2.5 mg-mcg tablet 1 tablet, oral, Daily selenium (SELENOMAX ORAL) 100 mcg/day, oral, Daily sertraline (ZOLOFT) 25 mg, oral, Daily RT vitamin D3-vitamin K2 1,250-200 mcg capsule Vitamin D3 Allergies Allergen Reactions Metoprolol Headache, Dizziness and Nausea/vomiting Bee Venom Protein (Honey Bee) Swelling and Unknown Other Reaction(s): Unknown Shellfish Containing Products GI Upset and Nausea/vomiting Adhesive Itching, Rash and Unknown Iodine Itching, Rash and Unknown Latex Itching, Rash and Unknown Rash Penicillin Itching and Rash LABS: No results found for: WBC , HGB , HCT , PLT , CHOL , TRIG , HDL , LDLDIRECT , ALT , AST , NA , K , CL , CREATININE , BUN , CO2 , TSH , PSA , INR , GLUF , HGBA1C , ALBUR Patient Active Problem List Diagnosis Date Noted BMI 37.0-37.9, adult 09/30/2023 Never smoked tobacco 09/30/2023 High risk medication use 09/30/2023 Medication course changed 09/30/2023 History of PSVT (paroxysmal supraventricular tachycardia) 08/26/2023 Palpitations 08/26/2023 RBBB 08/26/2023 Primary hypertension 08/26/2023 Pre-syncope 08/26/2023 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 History of PSVT (paroxysmal supraventricular tachycardia) Follow Up In Cardiology flecainide (Tambocor) 50 mg tablet ECG 12 Lead ECG 12 Lead 2. Palpitations Follow Up In Cardiology flecainide (Tambocor) 50 mg tablet ECG 12 Lead ECG 12 Lead dilTIAZem CD (Cardizem CD) 120 mg 24 hr capsule 3. Primary hypertension dilTIAZem CD (Cardizem CD) 120 mg 24 hr capsule 4. RBBB 5. Bradley's disease 6. BMI 37.0-37.9, adult 7. Never smoked tobacco 8. High risk medication use flecainide (Tambocor) 50 mg tablet 9. Medication course changed ECG 12 Lead ECG 12 Lead 10. Obstructive sleep apnea syndrome 11. Pre-syncope Clinical decision making: We discussed medical therapy and ablation guided therapy. She does not want to go for ablation at this time. 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 Follow up : 3 months Add flecainide 50 mg p.o. twice daily EKG today reviewed, EKG will be obtained in 48 hours. Start diltiazem CD1 20 mg p.o. daily and increase magnesium oxide to 400 mg twice a day Provider Attestation - Scribe documentation All medical record entries made by the Scribe were at my direction and personally dictated by me. I have reviewed the chart and agree that the record accurately reflects my personal performance of the history, physical exam, discussion and plan. Scribe Attestation By signing my name below, I, Jane Mendoza LPN attest that this documentation has been prepared under the direction and in the presence of Mary Alice Tatum MD. documented in this encounter [facility] [facility] Work Phone: 09-30-2023 Instructions Camila Bentley LPN - 09/30/2023 9:45 AM EDT Please bring all medicines, vitamins, and herbal supplements with you when you come to the office. Prescriptions will not be filled unless you are compliant with your follow up appointments or have a follow up appointment scheduled as per instruction of your physician. Refills should be requested at the time of your visit. documented in this encounter [facility] Work Phone: 08-26-2023 History of Present illness Narrative Referred by Dr. Dey ref. provider found for [facility] (Joelle jha) History Of Present Illness: Julia Villeda is a 73 y.o. female presenting with palpitations. Multiple comorbidities will be listed below. She is accompanied by her who is an electrical line mechanic. She reports having palpitations at a frequency of once or twice a year, has a diagnosis of SVT, they do not usually last long, but in the last few months they have increased in frequency intensity and duration. She may get them up to 3 times a week. In October or November 2022 when she had palpitations she had a syncopal episode, she found herself on the floor, no major injury. The palpitations are not precipitated by activity or meals. Sensation is that her heart is pounding out of her chest. Episodes last few seconds. A recent Holter monitor was interpreted to show bursts of supraventricular tachycardia, tracings are not available for review.. I have reviewed detailed notes by Dr. Jha. Patient does not report any chest pressure tightness or heaviness. Daily activity level is greater than 4 METS, does not report shortness of breath. Has lower extremity edema. 12 point review of systems is negative or noncontributory except as noted recent weight loss or weight gain he denies symptoms that are characteristic of obstructive sleep apnea Her BMI is excessive No bleeding diathesis No TIA or CVA type symptoms Past Medical History: 1. Primary hypertension 2. Increased BMI 3. Bradley's thyroid disease, on levothyroxine supplementation 4. Increased to BMI of 36 5. Multiple orthopedic surgeries, to include right rotator cuff repair, bilateral total knee replacements, right hip replacement, unable to walk on a treadmill. 6. Shellfish allergy-vomiting, has skin breakdown to topical iodine containing preparations Past Surgical History: She has a past surgical history that includes Colonoscopy; Total knee arthroplasty (Bilateral); Foot surgery (Left); Hip surgery (Right); Shoulder arthroscopy (Right); Hysterectomy; Dilation and curettage of uterus; and Laparoscopic colostomy. Social History: She reports that she has never smoked. She has never used smokeless tobacco. She reports that she does not drink alcohol and does not use drugs. Family History: Family History Problem Relation Name Age of Onset Other (colon cancer) Mother Stroke Mother Heart attack Father Dementia Father Skin cancer Father Colon cancer Other Allergies: Bee venom protein (honey bee), Shellfish containing products, Adhesive, Iodine, Latex, and Penicillin Outpatient Medications: Current Outpatient Medications Medication Instructions ascorbic acid (Vitamin C) 1,000 mg tablet clindamycin (Cleocin) 300 mg capsule 1 capsule, oral, 3 times daily clonazePAM (KLONOPIN) 0.5 mg, oral, 2 times daily PRN ferrous sulfate (325 mg ferrous sulfate) 325 mg, oral, Every other day levothyroxine (SYNTHROID, LEVOXYL) 100 mcg, oral, Daily before breakfast lisinopril 20 mg, oral, Daily multivitamin tablet 1 tablet, oral, Daily nitroglycerin (NITROSTAT) 0.4 mg, sublingual, Every 5 min PRN norethindrone ac-eth estradioL (Femhrt Low Dose) 0.5-2.5 mg-mcg tablet 1 tablet, oral, Daily selenium (SELENOMAX ORAL) 100 mcg/day, oral, Daily sertraline (ZOLOFT) 25 mg, oral, Daily RT vitamin D3-vitamin K2 1,250-200 mcg capsule Vitamin D3 Last Recorded Vitals: Vitals: 08/26/23 1134 BP: 130/80 BP Location: Left arm Patient Position: Sitting Pulse: 86 Weight: 107 kg (236 lb) Height: 1.715 m (5' 7.5 ) Physical Exam: GENERAL APPEARANCE: Well developed, well nourished, in no acute distress. CHEST: Symmetric and non-tender. INTEGUMENT: Skin warm and dry, without gross excoriationis or lesions. HEENT: No gross abnormalities, no jugular venous distention no carotid bruit or scleral icterus NECK: Supple, no JVD, no bruit. Thyroid not palpable. Carotid upstrokes normal. NEURO/PSHCY: Alert and oriented x3; appropriate behavior and responses and responses, with normal balance and coordination LUNGS: Clear to auscultation bilaterally; normal respiratory effort. HEART: Rate and rhythm regular with no evident murmur; no gallop appreciated. There are no rubs, clicks or heaves. ABDOMEN: Soft, nontender, no masses or bruits. MUSCULOSKELETAL: Status post bilateral knee replacement and right hip replacement. Ambulates without assistance. EXTREMITIES: Warm There is 1 + edema noted. PERIPHERAL VASCULAR: Pulses present and equally palpable; 2+ throughout. Labs reviewed today : June 2023-hemoglobin 12.6 hematocrit 39.3 platelets 300, sodium 138 potassium 3.8 liver enzymes normal GFR 86 creatinine 0.74 Magnesium 2.01 December 2022 Free T40.08 November 2022 TSH 0.06 November 2022 Assessment/Plan Diagnoses and all orders for this visit: History of PSVT (paroxysmal supraventricular tachycardia) - Follow Up In Cardiology; Future - ECG 12 Lead - Nuclear Stress Test; Future - metoprolol succinate XL (Toprol XL) 25 mg 24 hr tablet; Take 1 tablet (25 mg) by mouth once daily. Do not crush or chew. - magnesium oxide 400 mg magnesium capsule; Take 1 capsule (400 mg) by mouth 2 times a day. Palpitations - Nuclear Stress Test; Future - metoprolol succinate XL (Toprol XL) 25 mg 24 hr tablet; Take 1 tablet (25 mg) by mouth once daily. Do not crush or chew. - magnesium oxide 400 mg magnesium capsule; Take 1 capsule (400 mg) by mouth 2 times a day. Primary hypertension - metoprolol succinate XL (Toprol XL) 25 mg 24 hr tablet; Take 1 tablet (25 mg) by mouth once daily. Do not crush or chew. RBBB Pre-syncope - Nuclear Stress Test; Future Bradley's disease Obstructive sleep apnea syndrome Abnormal EKG - Nuclear Stress Test; Future 1. History of PSVT (paroxysmal supraventricular tachycardia) 2. Palpitations 3. Primary hypertension 4. RBBB 5. Pre-syncope 6. Bradley's disease 7. Obstructive sleep apnea syndrome 8. Abnormal EKG 9. 30-day event monitor August 2023 interpreted to show multiple brief runs of SVT with heart rate close to 170 bpm some of these appear to be symptomatic, palpitations and dizziness no bradycardia reported 10. Echocardiogram December 2022-LVEF 60 to 65% normal chamber dimensions trace mitral regurgitation trace tricuspid regurgitation no aortic stenosis or regurgitation normal IVC left atrial diameter 3.6 cm aortic root size 3.6 cm LV end-systolic diameter 2.9 cm TAPSE 2 cm left atrial volume index 27 mL/m . PA pressure 21 mmHg 11. EKG September 2020-normal sinus rhythm NJ interval 164 ms QRS duration 138 ms QTc 462 ms incomplete right bundle branch block Clinical decision makin. Increasing frequency of palpitations associated with lightheadedness presyncope and one bout of syncope 2. Holter monitor reports bouts of supraventricular tachycardia with symptoms. 3. Complete right bundle branch block on EKG NJ interval normal 4. Primary hypertension 5. Increased BMI, unable to do treadmill stress test because of the hip replacement and knee replacement surgeries 6. Obstructive sleep apnea on CPAP therapy 7. Bradley's disease, on levothyroxine supplementation, free T4 and TSH from December 2022 were within normal limits. 8. Increased BMI Recommendations: 1. I would like to personally review the tracings, and we are requesting that from the hospital 2. Increase magnesium oxide to 400 mg p.o. twice daily 3. We talked about EP guided approach to arrhythmia versus medical therapy, patient prefers to try medical therapy 4. Will start metoprolol succinate 25 mg p.o. daily 5. Lexiscan Myoview 6. Follow-up after Lexiscan Myoview, if no evidence of flow-limiting coronary artery disease, will start flecainide 50 mg p.o. twice daily and follow EKG. Thank you for allowing me to participate in Julia's care, please do not hesitate to call if further questions arise, Sincerely, MaryA lice Tatum MD [facility] Provider Attestation - Scribe documentation All medical record entries made by the Scribe were at my direction and personally dictated by me. I have reviewed the chart and agree that the record accurately reflects my personal performance of the history, physical exam, discussion and plan. documented in this encounter [facility] Work Phone: 08-26-2023 Instructions Mona Matthews LPN - 08/26/2023 11:15 AM EDT Please bring all medicines, vitamins, and herbal supplements with you when you come to the office. Prescriptions will not be filled unless you are compliant with your follow up appointments or have a follow up appointment scheduled as per instruction of your physician. Refills should be requested at the time of your visit. BMI was above normal measurement. Current weight: 107 kg (236 lb) Weight change since last visit (-) denotes wt loss 236 lbs Weight loss needed to achieve BMI 25: 74.3 Lbs Weight loss needed to achieve BMI 30: 42 Lbs Provided instructions on dietary changes Provided instructions on exercise Advised to Increase physical activity . documented in this encounter [facility] Work Phone: 05-09-2023 Evaluation note Encounter Date Diagnosis Assessment Notes May, S/P total right hip arthroplasty (ICD-10 - Z96.641) May, Aftercare following joint replacement surgery (ICD-10 - Z47.1) Radiographs of the right hip was reviewed with the patient today, along with a physical examination. Patient is progressing well. Patient was given dental antibiotic today. 1 year handicap placard was given today as well. Patient will f/u 1 year post-op May, Presence of right artificial hip joint (ICD-10 - Z96.641) May, Other Examination and assessment of this patient was performed by Amber Wang NP and patient will continue with the treatment plan per Dr. Chang, who initiated this treatment plan. Dr. Andersen is present in the office today and providing supervision. [employer] Other 10-25-2023 Evaluation note* Encounter Date Diagnosis Assessment Notes Treatment Notes Treatment Clinical Notes Mar, S/P total right hip arthroplasty (ICD-10 - Z96.641) Mar, Aftercare following joint replacement surgery (ICD-10 - Z47.1) Mar, Presence of right artificial hip joint (ICD-10 - Z96.641) Mar, Other [facility]HA at [facility] on 02/11/2023 Doing well Patient may continue increasing activities as tolerated. Continue taking [id number]-[id number] anti-inflammatorie s as needed for assistance with swelling and pain associated with the operative extremity. Follow-up in 6 weeks for repeat examination and repeat x-rays. [employer] Other 09-27-2023 Evaluation note* Encounter Date Diagnosis Assessment Notes Treatment Notes Treatment Clinical Notes Feb, S/P total right hip arthroplasty (ICD-10 - Z96.641) Feb, Aftercare following joint replacement surgery (ICD-10 - Z47.1) Feb, Presence of right artificial hip joint (ICD-10 - Z96.641) Feb, Other [facility] at [facility] on 02/11/2023 Doing well Patient may continue activities as tolerated. They are weightbearing as tolerated to the operative extremity. Patient is progressing with home health & physical therapy. We made the shared decision to continue physical therapy. Patient instructed to continue weaning off narcotic pain medication. They can continue taking Celebrex and Tylenol as needed for assistance with swelling and pain associated with the operative extremity. Patient to continue their aspirin DVT prophylaxis as previously instructed. This includes wearing their ARNOLDO hose on the operative extremity for another two weeks. Follow-up in 4 weeks for repeat examination and x-rays of the right hip. [employer] Other 09-11-2023 Evaluation note* Encounter Date Diagnosis Assessment Notes Treatment Notes Treatment Clinical Notes Feb, Primary osteoarthritis of right hip (ICD-10 - M16.11) [employer] Other 09-01-2023 Evaluation note* Encounter Date Diagnosis Assessment Notes Treatment Notes Treatment Clinical Notes Feb, Other [employer] 1. H and P date: 01/31/2023 2. Diagnosis: Right hip primary osteoarthritis 3. Counseling: Patient received counseling at their history and physical. 4. Coordination of care: The patient was discussed at today's total joints meeting with anesthesia, OR staff, and implant reps in an effort to coordinate the patient's care during the perioperative period. The anesthesiologist was involved in discussions regarding the patient's pain management such as regional blocks, anesthesia plans the day of surgery such as general versus spinal, as well as a final review of lab work to ensure the patient could proceed with surgery safely. The strategic procurement manager was vital for surgery timing and scheduling purposes. The implant rep was also available for necessary discussions regarding preoperative templates that were created on preoperative x-rays to ensure the appropriate implants and sizes of implants would be available the day of surgery. The patient's discharge plan was also discussed and the final decision was confirmed. 5. Medication Changes: If the patient has a general anesthesia, the anesthesiologist will order a scopolamine patch at the request of the patient. If she has a spinal anesthesia then we will not order the scopolamine patch. 6. Lab Tests: The patient's screening tests including albumin levels, vitamin D levels, hemoglobin, hemoglobin A1c, cotinine serum level, and MRSA nasal cultures were all reviewed to ensure appropriate perioperative care can be performed. This included selection of perioperative antibiotics, surgical dressing, and any contact precautions that may need to be enacted. The patient's presurgical testing lab work was also reviewed. This included a CBC, BMP, UA, fructosamine, and a blood type and screen. This lab work was discussed with anesthesia during today's total joints meeting to ensure the patient could proceed with surgery safely. 7. Review of reports/records: The surgical clearance information provided by the patient's PCP and if deemed necessary, other specialists, was reviewed. Any recommendations made by these care providers were taken into consideration for the patient's perioperative and postoperative treatment plans. Prolonged services time spent: 34 minutes [employer] Other 08-31-2023 Evaluation note* Encounter Date Diagnosis Assessment Notes Treatment Notes Treatment Clinical Notes Jan, Primary osteoarthritis of right hip (ICD-10 - M16.11) Jan, Other 1. Right RADHA She has significant postoperative nausea and has used a scopolamine patch just this past year and would like to proceed with one for her hip surgery. Home Medications - DVT prophylaxis: Aspirin - NSAID: Celebrex - Disposition: Same-day discharge-she says her and her daughter will be able to help her in the postoperative period Joints Meeting Checklist - Pharmacy: [facility] to bed - Approach/Technique: anterior, Hamel bed - Implants: Avenir Complete/G7; - Anesthesia: General versus spinal - Blocks: Fascia iliaca - Preop Antibiotics: Ancef - TXA: yes-systemic - Positioning/OR Bed: supine on Hamel bed - Intraop X-ray: yes - Lopez: no - Tourniquet: no - Antibiotic powder: yes-2 grams of vanc - Antibiotic cement: no - Dressing: Zipline and Prevena 14-day The patient has tried and failed all conservative treatment options to include: activity modification, physical therapy, oral anti-inflammatories , and intra-articular steroid injections. We will move forward with the definitive treatment option and schedule the patient for the above mentioned procedure. The risks involved with surgery and postoperative complications were discussed in relation to the patient's non-modifiable risk factors including but not limited to the following: Hypothyroidism Hypertension Depression All questions were answered after discussing these increased risks. The patient voiced understanding of these increased risks and still wishes to proceed with surgery. The risks involved with surgery and postoperative complications were discussed in relation to the patient's modifiable risk factors including but not limited to the following: None identified at this time All questions were answered after discussing these increased risks. The patient voiced understanding of these increased risks and still wishes to proceed with surgery. The risks and benefits of the surgery were reviewed in depth with the patient, and all questions were answered. Informed consent was obtained. The risks and potential complications of the surgery include, but are not limited to: avascular necrosis, nonunion, nerve injury, blood vessel injury, excessive bleeding, blood transfusion, infection, persistent pain, loss of fixation, failure of the implant, deep vein thrombosis, pulmonary embolus, loss of limb, fracture, leg length discrepancy, and . Patient voiced understanding of these risks and has elected to proceed with the above surgery. [employer] Other 08-02-2023 Evaluation note* Encounter Date Diagnosis Assessment Notes Treatment Notes Treatment Clinical Notes Jan, Right hip pain (ICD-10 - M25.551) Jan, Primary osteoarthritis of right hip (ICD-10 - M16.11) Jan, Other shelter (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 (ICD-10 - Z79.899) Jan, Age-related osteoporosis without current pathological fracture (ICD-10 - M81.0) Jan, Other 1. Right RADHA - DVT prophylaxis: Aspirin - Antibiotics: Ancef - NSAID: Celebrex - Implants: Avenir Complete, G7 - Disposition: [Same-day discharge, Inpatient, Rehab] 2. Preop screening labs were obtained and are as follows: - hemoglobin: 11.8-patient was started on iron today, patient wanted to use uupl-[id number]. - serum albumin: 4.2 - 25-OH Vit D: 71.4 - HgbA1c: 5.9 - serum cotinine: Negative - MRSA nasal culture: Negative 3. Patient will obtain preop clearances including: -PCP 4. Once our office has reviewed the above labs and clearances, we will contact the patient to discuss surgery scheduling. Patient is in agreement with the above plan. 5. The risks involved with surgery and postoperative complications were discussed in relation to the patient's nonmodifiable risk factors including but not limited to the following: Hypothyroidism Hypertension Depression All questions were answered after discussing these increased risks. The patient voiced understanding of these increased risks and still wishes to proceed with surgery. 6. The risks involved with surgery and postoperative complications were discussed in relation to the patient's modifiable risk factors including but not limited to the following: None identified at this time All questions were answered after discussing these increased risks. The patient voiced understanding of these increased risks and still wishes to proceed with surgery. The patient has tried and failed all conservative treatment options to include: oral anti-inflammatories , intra-articular steroid injections, physical therapy, and assistive devices. We will move forward with the definitive treatment option and schedule the patient for the above mentioned procedure after we have reviewed screening labs and clearances. Patient understands abnormal screening labs or absent clearances could delay their surgery. [employer] Other 04-10-2023 NotePROCEDURE: XR FOOT LT MIN 3 VIEWS HISTORY: pain ; bunionectomy COMPARISON: XR foot left 08/07/2022 FINDINGS: BONES:First metatarsal bunion formation. Prior resection of head of fifth proximal phalanx. Calcaneal plantar spur. SOFT TISSUES:No visible soft tissue swelling. EFFUSION:None visible. OTHER: Negative. IMPRESSION: 1. No acute bone abnormality. 2. Bunion formation and stable prior surgical changes. Electronically authenticated by: MAGNOLIA MICHEL Date: 2022-09-10 12:54[facility]04-05-2023 Evaluation note* Encounter Date Diagnosis Assessment Notes Treatment Notes Treatment Clinical Notes Sep, Right hip pain (ICD-10 - M25.551) Sep, Primary osteoarthritis of right hip (ICD-10 - M16.11) Sep, Other oil heaterman (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 (ICD-10 - Z79.899) Sep, Age-related osteoporosis without current pathological fracture (ICD-10 - M81.0) Sep, Other 1. We had a woo g discussion with the patient today concerning their right hip osteoarthritis. The radiographs do show osteoarthritis of the hip. At this time the patient would like to avoid surgical intervention. We did discuss the risk and benefits of surgical versus nonoperative management. The patient would like to proceed with nonoperative management. We discussed that our options include injections, physical therapy, and the consistent use of anti-inflammatories. All 3 of these options, including their risks and benefits, were discussed at length with the patient. 2. Tylenol: Discussed taking Tylenol (acetaminophen). Recommended adjusting their dosing to 1000mg by mouth up to 3 times a day. 3. NSAIDs: Recommended ynpo-zut-jfmlkzf anti-inflammatories 4. Physical therapy: Discussed formal physical therapy and home regimen. Patient preferred no PT at this time. 5. Injections: Discussed injections as a treatment option. We will get the patient set up with Dr David Acosta for a right hip intra-articular corticosteroid injection. 6. Follow up 2-1/2 months after her right hip injection. 2 months after the injection she is going to get her 6 preoperative screening labs. [employer] Other 03-08-2023 NotePROCEDURE: XR FOOT LT MIN 3 VIEWS COMPARISON: None. HISTORY: Pain in left foot FINDINGS: BONES:No acute fracture or dislocation. Mild hallux valgus. Mild to moderate degenerative changes most significant in the midfoot with joint space narrowing marginal osteophyte relation. Moderate enthesopathic spurring plantar calcaneus SOFT TISSUES:Negative. No visible soft tissue swelling. EFFUSION:None visible. OTHER: Negative. IMPRESSION: Degenerative changes with mild hallux valgus Electronically authenticated by: ELKIN COLLIER Date: 2022-08-08 09:37[facility]01-18-2023 Evaluation note* Encounter Date Diagnosis Assessment Notes Treatment Notes Treatment Clinical Notes Jun, Right hip pain (ICD-10 - M25.551) Jun, Primary osteoarthritis of right hip (ICD-10 - M16.11) Jun, Other shelter (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 (ICD-10 - Z79.899) Jun, Age-related osteoporosis without current pathological fracture (ICD-10 - M81.0) Jun, Other I had a long discussion with the patient regarding the etiology of her symptoms. I explained to her that she has end-stage osteoarthritis of her right hip. We discussed conservative treatment options including Tylenol and oral anti-inflammatories which she has already tried and failed. We also discussed intra-articular steroid injections. She was reluctant to consider this at first but ultimately agreed. We will get her set up for a right hip intra-articular steroid injection with Dr. Acosta. I will plan to see her back in the office 2 months after that injection. 1 week prior to see me in the office she will obtain the following labs: Albumin Hemoglobin Hemoglobin A1c Vitamin D Cotinine MRSA We will discuss those labs at that appointment and whether or not she still wants to proceed with the surgery. Ultimately she would like to do a total hip replacement sometime in the beginning of October as she is in the process of building a house and she also has some meetings to go to sometime in the summer. [employer] Other 11-09-2021 NoteHNO ID: [id number] Author: Best Valera MD Service: ? Author Type: Physician Type: Progress Notes Filed: 04/11/2021 3:45 PM Note Text: This document has been created with the use of voice recognition technology. It may contain inaccuracies: misspellings, inaccurate syntax or word sense that escaped review. HISTORY: Julia is a 71 year old female. She is here following up for right knee total knee replacement with a date of surgery of 10/03/2020. She states she is doing well without any concerns. She has no pain HISTORY OF PRESENT ILLNESS: PAIN EVALUATION 04/11/2021 1527 Pain Level: 0 Pain Location: Knee-Right Description: Other: See comment no pain Duration Units: Unknown Frequency: ? no pain Intervention/Comfort measure: Reposition;Relaxation;Positioning The patient's past medical history, surgical history, social history, family history, medications and allergies were reviewed with the patient today and are available in the chart for further review. EXAMINATION: Examination of the knee demonstrates the incision to be healed. No effusion. Active full extension, flexion to 120. None patellofemoral crepitation/Good patellar tracking. Stable to varus and valgus stresses. Stable anterior posterior drawer Calf is soft and nontender. Hip exam is negative Intact sensation to light touch distally RADIOGRAPHS: XR obtained today and personally reviewed my myself demonstrating none today IMPRESSION: Encounter Diagnosis ICD-10-CM 1. S/P TKR (total knee replacement), right Z96.651 Procedures PLAN: Postoperatively doing excellent. No concerns. She is happy. We discussed antibiotic prophylaxis. We will follow-up for any problems [facility]10-05-2021 Evaluation note* Encounter Date Diagnosis Assessment Notes Treatment Notes Treatment Clinical Notes Mar, Encounter for immunization (ICD-10 - Z23) Patient presents for COVID-19 vaccination BOOSTER. Pre-screening form answers evaluated with patient. Patient denies current illness or allergic reaction to component of COVID-19 vaccine. Patient provided with current copy of EUA. [employer] Other 08-24-2021 NoteHNO ID: [id number] Author: Best Valera MD Service: ? Author Type: Physician Type: Progress Notes Filed: 01/24/2021 10:33 AM Note Text: Ortho Knee Follow Up Note Narrative Referring Provider: Best Valera [address] [place] [address] PCP: Nancy Jha, DO IMPRESSION/PLAN: 70 year old s/p Right Total Knee Replacement completed on 10/03/2020. Recent Surgeries in Orthopaedics 10/03/2020 (3mo) ARTHROPLASTY REPLACE JOINT TOTAL KNEE (Right) Best Valera MD - Posted 12/08/2018 (2yr, 1mo) ARTHROPLASTY REPLACE JOINT TOTAL KNEE (Left) Best Valera MD - Posted 05/18/2015 (5yr) ARTHROSCOPY SHOULDER WITH SUBACROMIAL DECOMPRESSION; ARTHROSCOPY SHOULDER ROTATOR CUFF (Right; Right) Best Valera MD - Posted PAIN EVALUATION 01/24/2021 0946 Pain Level: 4 Pain Location: Knee-Right Description: Tightness;Stiffness Duration Amount of Time: 3.5 Duration Units: Months Frequency: Intermittent Intervention/Comfort measure: Reposition;Relaxation;Positioning;Medication;Cold;Exercise IMPRESSION: Excellent early outcome No complaints or limitations At normal post-operative stage of recovery. PLAN: Rest, Ice, Compression, Elevation PRN. Patient Reassurance: Normal post-operative course discussed with patient. Progress appears to be with the normal speed of recovery. Patient reassured and supported. All questions answered. Follow up 3 months No X-Rays Needed Julia Villeda presents today for a an intermediate post-op visit ACTIVE PROBLEM LIST Hip Arthritis Rotator Cuff Tendonitis Impingement Syndrome of Right Shoulder Radial Styloid Tenosynovitis of Right Hand Sprain of Right Shoulder Vonda On Cpap Essential Hypertension Other Specified Hypothyroidism Oa (Osteoarthritis) of Knee S/P total knee replacement, left 12/08/18 Obesity, Class II, Bmi 35-39.9 Status post op: BMI: There is no height or weight on file to calculate BMI. Post-operative recovery was complicated by uneventful/none. Readmission(s) since surgery (90 days post)? No ED Visits AND Hospitalizations - Last 180 days 10/03/20 Best Valera MD, AV5E S/P TKR (total knee replacement) not using cement, right ..., Admission (Discharged) Patient rates their condition as improving. Does the patient still experience pain? No Post Op discharge patient location: in home. Functional Assessment is as follows: completed outpatient PT. Functional difficulties: None. Pain Medication: Non-narcotic Opioid Medications (last 90 days) Some values may be hidden. Unless noted otherwise, only the newest values recorded on each date are displayed. Opioid Medications No data to display. Currently Ambulating with: no ambulation aides EXAM: POST OP KNEE Right Post-Operative Knee Ambulates with a normal gait. SKIN: Appropriate postop appearance, No evidence of erythema, warmth, discharge or drainage, Incision clean/dry/intact and slight warmth to the skin surrounding the right knee. Range of motion is 0 degrees in extension and 110 degrees of flexion. Extension La degrees Pain with ROM: No There is Slight effusion. Mal-alignment: No Tender to the palpation of None Neurovascular Status: Sensation Intact, Moves foot and ankle up AND down, Moves toes up and down, 2+ dorsalis pedis and negative homans sign Stability:Anterior/Posterior- Yes, stable and Varus/Valgus- Yes, stable Quad strength: normal Imagin. None today. Provider: Best Valera MD Completed by: Mendez Cosby PA-C I have personally performed face to face diagnostic evaluation on this patient. I have examined the patient and reviewed radiographic studies and agree with plan as outlined above. Best Valera MD January 24, 2021 10:32 [facility]06-17-2021 NoteHNO ID: [id number] Author: Best Valera MD Service: ? Author Type: Physician Type: Progress Notes Filed: 11/17/2020 2:15 PM Note Text: Ortho Knee Follow Up Note Narrative Referring Provider: Best Valera [address] [facility] [place] [address] PCP: Nancy Jha, DO IMPRESSION/PLAN: 70 year old s/p Right Total Knee Replacement completed on 10/03/2020. IMPRESSION: Excellent early outcome PLAN: No new treatment indicated: Routine follow-up. Continue current conservative treatment. Rest, Ice, Compression, Elevation PRN. Patient Reassurance: Normal post-operative course discussed with patient. Progress appears to be with the normal speed of recovery. Patient reassured and supported. All questions answered. Follow up 3 months No X-Rays Needed Julia Villeda presents today for a an intermediate post-op visit ACTIVE PROBLEM LIST Hip Arthritis Rotator Cuff Tendonitis Impingement Syndrome of Right Shoulder Radial Styloid Tenosynovitis of Right Hand Sprain of Right Shoulder Vonda On Cpap Essential Hypertension Other Specified Hypothyroidism Oa (Osteoarthritis) of Knee S/P total knee replacement, left 12/08/18 Obesity, Class II, Bmi 35-39.9 Status post op: Right Total Knee Replacement BMI: There is no height or weight on file to calculate BMI. Post-operative recovery was complicated by uneventful/none. Patient rates their condition as improving. Does the patient still experience pain? Yes, intermittent soreness, up to a 1/0 Post Op discharge patient location: at an outpatient facility. Functional Assessment is as follows: has already started outpatient PT as of this visit. Functional difficulties: None. Pain Medication: Non-narcotic Currently Ambulating with: no ambulation aides EXAM: POST OP KNEE Right Post-Operative Knee Ambulates with a normal gait. SKIN: Appropriate postop appearance, No evidence of erythema, warmth, discharge or drainage and No evidence of warmth or erythema. Range of motion is 0 degrees in extension and 120 degrees of flexion. Extension La degrees Pain with ROM: No There is None effusion. Mal-alignment: No Tender to the palpation of None Neurovascular Status: Sensation Intact, Moves foot and ankle up AND down, Moves toes up and down, 2+ dorsalis pedis and negative homans sign Stability:Anterior/Posterior- Yes, stable and Varus/Valgus- Yes, stable Quad strength: normal Imagin. None today. Provider: Best Valera MD Completed by: Anshul Branch MA I have personally performed face to face diagnostic evaluation on this patient. I have examined the patient and reviewed radiographic studies and agree with plan as outlined above. Best Valera MD November 17, 2020 2:14 [facility]05-25-2021 NoteHNO ID: [id number] Author: Mendez Cosby PA-C Service: ? Author Type: Physician Senior Software Engineer Analytics Type: Progress Notes Filed: 10/25/2020 10:27 AM Note Text: Ortho Knee Follow Up Note Narrative Referring Provider: Best Valera [address] [facility] [address] PCP: Nancy Jha, DO IMPRESSION/PLAN: 70 year old s/p Right Total Knee Replacement completed on 10/03/20. IMPRESSION: Excellent early outcome PLAN: No new treatment indicated: Routine follow-up and Continue physical therapy. Patient Reassurance: Normal post-operative course discussed with patient. Progress appears to be with the normal speed of recovery. Patient reassured and supported. All questions answered. Follow up 3 weeks No X-Rays Needed Julia M Villeda presents today for a an early post-op visit ACTIVE PROBLEM LIST Hip Arthritis Rotator Cuff Tendonitis Impingement Syndrome of Right Shoulder Radial Styloid Tenosynovitis of Right Hand Sprain of Right Shoulder Vonda On Cpap Essential Hypertension Other Specified Hypothyroidism Oa (Osteoarthritis) of Knee S/P total knee replacement, left 12/08/18 Obesity, Class II, Bmi 35-39.9 Status post op: Right Total Knee Replacement BMI: There is no height or weight on file to calculate BMI. Post-operative recovery was complicated by uneventful/none. Patient rates their condition as improving. Does the patient still experience pain? No Post Op discharge patient location: at an outpatient facility. Functional Assessment is as follows: completed home PT. Functional difficulties: None. Pain Medication: Non-narcotic Currently Ambulating with: no ambulation aides EXAM: POST OP KNEE Right Post-Operative Knee Ambulates with a normal gait. SKIN: Appropriate postop appearance, No evidence of erythema, warmth, discharge or drainage and No evidence of warmth or erythema. Range of motion is 0 degrees in extension and 110 degrees of flexion. Extension La degrees Pain with ROM: No There is Slight effusion. Mal-alignment: No Tender to the palpation of Medial femoral condyle Neurovascular Status: Sensation Intact, Moves foot and ankle up AND down, Moves toes up and down, 2+ dorsalis pedis and negative homans sign Stability:Anterior/Posterior- Yes, stable and Varus/Valgus- Yes, stable Quad strength: normal Imagin. Implants are well aligned. Implants are well fixed. There is no evidence of loosening. Provider: Mendez Cosby PA-C Completed by: WENDY [facility]05-25-2021 NoteHNO ID: [id number] Author: RT Og(David) Service: ? Author Type: Vp [employer] Type: Progress Notes Filed: 10/25/2020 9:56 AM Note Text: Radiology Service Progress Note PATIENT NAME: Julia Villeda DATE OF SERVICE: October 25, 2020 TIME: 9:55 AM PATIENT IDENTITY VERIFICATION COMPLETED USING TWO (2) IDENTIFIERS: Name and Date of confirmed by patient verbally. FALL SCREENING: Has the patient had 2 falls in the last year or 1 fall with injury or currently using an Ambulatory Assistive Device (Walker, Cane, Wheelchair, Crutches, etc.)? No PATIENT GENDER DATA: Female. status: : No status: NO. PATIENT RELEVANT IMPLANT DATA REVIEWED: Not Applicable RADIOLOGY DEPARTMENT: General X-ray: Exam(s) Completed: Lower Extremity X-Ray(s): Knee, AP / Lat / Merchant Right PERIPHERAL IV DATA: Not applicable SIGNED BY: RT Og(R) October 25, 2020 9:55 [facility]05-04-2021 NoteHNO ID: [id number] Author: Radha Milligan ([employer]) Service: ? Author Type: ? Type: Plan of Care Filed: 10/04/2020 3:19 PM Note Text: The following medications were delivered to the patient: Medication List START taking these medications acetaminophen 325 mg tablet Commonly known as: TylenoL Take 2 tablets by mouth every 4 hours as needed for Pain. Replaces: TylenoL 325 mg Cap X aspirin, enteric coated 81 mg EC tablet Commonly known as: ASPIRIN, ENTERIC COATED Take 1 tablet by mouth twice daily. docusate sodium 100 mg capsule Commonly known as: COLACE Take 1 capsule by mouth twice daily. naloxone 4 mg/actuation nasal spray Use 1 spray in one nostril as needed for overdose. May repeat every 2 to 3 min in alternating nostrils until medical assistance is available X oxyCODONE IR 5 mg immediate release tablet Commonly known as: ROXICODONE Take 1-2 tablets by mouth every 4 hours as needed for Pain for up to 7 days. CONTINUE taking these medications cholecalciferol (vitamin D3) 100 mcg (4,000 unit) Cap clindamycin 300 mg capsule Commonly known as: Cleocin HCL Take 2 tablets 1 hour prior to procedure and take 2 tablets 6 hours following procedure. COMPOUNDED PRESCRIPTION fluticasone 50 mcg/actuation nasal spray Commonly known as: FLONASE KlonoPIN 0.5 mg tablet Generic drug: clonazePAM lisinopril 20 mg tablet Commonly known as: ZESTRIL, PRINIVIL MAGNESIUM CITRATE ORAL ONE-A-DAY MAXIMUM FORMULA tablet Generic drug: multivitamin with minerals Selenium 100 mcg Tab Take 1 tablet by mouth once daily. sertraline 50 mg tablet Commonly known as: ZOLOFT SYNTHROID 100 mcg tablet Generic drug: levothyroxine You might also be taking other medications not listed above. If you have questions about any of your other medications, talk to the person who prescribed them or your Primary Care Provider. STOP taking these medications mupirocin 2 % ointment Commonly known as: BACTROBAN TylenoL 325 mg Cap Generic drug: acetaminophen Replaced by: acetaminophen 325 mg tablet Radha Milligan ([employer]) PAGER: chelly October 04, 2020 3:18 [id number] NoteHNO ID: [id number] Author: Jaci Ojeda RN Service: Care Management Author Type: Registered Nurse Type: Care Mgt Progress Note Filed: 10/04/2020 12:33 PM Note Text: CARE MANAGEMENT DISCHARGE NOTE SERVICE DATE: 10/04/2020 SERVICE TIME: 12:31 PM LOS: 0 days Admission Date: 10/03/2020 DISCHARGE ARRANGEMENT (list agency and phone number) Discharge Arrangement: Home;Home Penitentiary Care: PT CAREGIVER ASSESSMENT: Caregiver is ready, willing and able to meet the patient's needs as recommended by the inter-professional team:: Yes Does the patient have an acute stroke diagnosis, or has the patient had a stroke during this admission?: No Patient's transition needs and plan for meeting these needs: [facility] accepting HANDOFF COMMUNICATION: Handoff to: Primary Care Physician;Other Caregiver Primary Care Physician Name/Phone: Nancy Jha [phone] Other Caregiver Name/Phone: [employer] [phone] TRANSPORTATION ARRANGEMENTS: Transportation Arrangements: Car ADDITIONAL CONTACT RESOURCES: Alex Villeda (Spouse) Discharge Information Row Name Admission (Current) from 10/03/[address] [facility] [employer] Start of Care ? within 24-48 hrs of discharge [place] of Choice Given: Yes Level of Care Discussed: Home Care;Other: See Comment (Patient requested [employer]) Caregiver is ready, willing and able to meet the patient's needs as recommended by the inter-professional team:: Yes Does the patient have an acute stroke diagnosis, or has the patient had a stroke during this admission?: No Family Name/Phone: Alex Ronal [phone] Needs Prior to Discharge: Home Care Order Transportation Arrangements: Car SIGNATURE: Jaci Ojeda RN PATIENT NAME: Julia Villeda DATE: October 04, 2020 TIME: 12:31 PM PAGER/CONTACT #: [phone] [id number] NoteHNO ID: [id number] Author: Jaci Ojeda RN Service: Care Management Author Type: Registered Nurse Type: Care Mgt Initial Assessment Filed: 10/04/2020 12:30 PM Note Text: CARE MANAGEMENT: ASSESSMENT AND DISCHARGE PLAN SERVICE DATE: October 04, 2020 SERVICE TIME: 12:29 PM PRIMARY CARE PHYSICIAN: Nancy Jha DO ADMISSION STATUS: Extended Recovery Needs Prior to Discharge: Home Care Order MEDICAL: [facility] CHOICE 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 Last discharge within 30 days: No Advance Directive: Current Advance Directive: None Speech Instructor Attempted to Assist with AD Completion: Yes Action: Education Provided Health LiteracyHow often do you need to have someone help you when you read instructions, pamphlets, or other written material from your doctor or pharmacy? : 1 - Never How confident are you filling out medical forms by yourself?: 1 - Extremely If Patient scores > 3 on either question, the following interventions were put into place:: Patient did not score > 3 on either question. Baseline Mental Status Prior to this Illness what was the patient's Baseline Mental Status?: Alert AND Oriented Prior to this illness, has anyone described the patient having any of the following behaviors?: Not Applicable Relationship of the informant to the patient:: Self Functional Status: Independent Does Patient Currently Receive Any Community Services or Home Care?: None Equipment Prior to Admission: Walker;Cane;Other: See Comment (walk in shower, grab bars in bathroom) Has the Patient Been in a Custodial Facility in the Past 30 days?: No SOCIAL: Living Arrangements: Home Lives With: Spouse Financial Resources: Retired Primary Contact: Extended Emergency Contact Information Primary Emergency Contact: Alex Villeda Address: [address] [place] [address] Mobile Relation: Spouse Secondary Emergency Contact: Vaishali Villeda Mobile Relation: Daughter Supportive Patient Contact:: Yes Contact Resources: Family Family Name/Phone: Alex Villeda [phone] Caregiver AssessmentCaregiver is ready, willing and able to meet the patient's needs as recommended by the inter-professional team:: Yes Does the patient have an acute stroke diagnosis, or has the patient had a stroke during this admission?: No Patient's transition needs and plan for meeting these needs: [facility] accepting Patient's perception of need for this admission: right total knee replacement Medication Adherance I am convinced of the importance of my prescription medication: 0 - Agree Completely I worry that my prescription medication will do more harm than good to me : 0 - Disagree Completely I feel financially burdened by my [id number] expenses for my prescription medication:: 0 - Disagree Completely Risk Score: 0 Patient is categorized as: Low risk < 2 Are you interested in bedside delivery of your medications? Yes Is Patient Psychosocially Complex?: No ASSESSMENT AND PLAN: Medical Needs: Medical Needs: Two or more chronic diseases Psychosocial Needs: Psychosocial Needs: None FREEDOM OF CHOICE EXPLAINED: [place] of Choice Given: Yes Level of Care Discussed: Home Care;Other: See Comment (Patient requested [facility]) POTENTIAL TRANSITION PLANS Home;Home Care Assessment completed at bedside with patient and spouse, explained my role in transitional care planning. PT recommends home PT. Patient used [facility] in the past and requested them again. DC transportation will be provided by family. SIGNATURE: Jaci Ojeda RN PATIENT NAME: Julia Villeda DATE: October 04, 2020 TIME: 12:29 PM PAGER/CONTACT #: [phone] [id number] NoteHNO ID: [id number] Author: Olga Freedman PA-C Service: Orthopaedic Surgery Author Type: Physician Senior Software Engineer Analytics Type: Progress Notes Filed: 10/04/2020 10:31 AM Note Text: ORTHOPAEDIC POSTOP PROGRESS NOTE SERVICE DATE: 10/04/2020 SERVICE TIME: 10:30 AM Subjective Patient states that they are comfortable Well Controlled knee(s) pain. Moderate incisional pain. Objective VITAL SIGNS: BP 141/56 Pulse 82 Temp 36.7 ?C (98.1 ?F) (Oral) Resp 16 Wt 105.2 kg (232 lb) SpO2 92% BMI 35.80 kg/m? INTAKE AND OUTPUT: Intake/Output Summary (Last 24 hours) at 10/04/2020 1030 Last data filed at 10/03/2020 1943 Gross per 24 hour Intake 1750 ml Output 175 ml Net 1575 ml PHYSICAL EXAMINATION: Right Lower Extremity: Dorsalis pedis pulses palpable. Dorsi flexion 5/5. Plantar flexion 5/5. Extensor hallucis extension: 5/5. Sensory intact to light touch L1-S1. Dressing clean, dry and intact. Surgical site Aquacell intact. Problem Review and Assessment: Patient monitored, no new events overnight. LABS: Recent Labs 10/04/20 0522 HB 10.8* HCT 32.4* DATA: Diagnostic tests reviewed for today's visit: Most recent labs Assessment/Plan S/P Procedure(s) (LRB): ARTHROPLASTY REPLACE JOINT TOTAL KNEE (Right) on 10/03/2020 POSTOP PLAN: Physical Therapy evaluation Pain control Case Management for discharge planning ACTIVE PROBLEM LIST Hip Arthritis Rotator Cuff Tendonitis Impingement Syndrome of Right Shoulder Radial Styloid Tenosynovitis of Right Hand Sprain of Right Shoulder Vonda On Cpap Essential Hypertension Other Specified Hypothyroidism Oa (Osteoarthritis) of Knee S/P total knee replacement, left 12/08/18 Obesity, Class II, Bmi 35-39.9 Medication and Non-Pharmacologic VTE Prophylaxis/Anticoagulants Anticoagulant AND Antiplatelet Medications (From admission, onward) Comment Start Dose Route Frequency Last Action Ordered Stop 10/04/20 0900 aspirin, enteric coated 81 mg tab(s) (Surgical Risk Categories) 81 mg ORAL 2 TIMES DAILY Given, 10/04 0838 10/03/201951 -- 10/03/201999 pneumatic compression stockings ([place]) 10/03/201999 graduated compression stockings ([place] VTE Prophylaxis: VTE prophylaxis appropriate POST OPERATIVE COMPLICATIONS: Complicated by: uneventful/none SIGNATURE: Olga Freedman PA-C PATIENT NAME: Julia Villeda DATE: October 04, 2020 TIME: 10:30 AM ETX#[id number] NoteHNO ID: [id number] Author: Ml Wilson APRN.SAP DEVELOPER Service: ? Author Type: Nurse Railroad Supervisor [employer]ines Type: Anesthesia Procedure Notes Filed: 10/03/2020 2:24 PM Note Text: ANESTHESIOLOGY PROCEDURE NOTE Spinal Block General Information Procedure Start Time/Medication Administration: 10/03/2020 1:28 PM Patient location during procedure: OR Timeout Performed Pre-procedure: timeout performed Consent Obtained: Yes Patient identity confirmed: arm band and patient Reason for Block: primary surgical anesthetic Staffing SAP DEVELOPER: Ml Wilson APRN.SAP DEVELOPER Preparation Sterility Preparation: hand hygiene performed prior to procedure, surgical cap used, mask used, sterile drape used during line insertion, skin prep agent completely dried prior to procedure Site Prep: Duraprep Procedure Details Patient Position: sitting Monitoring: Pulse Ox and NIBP Approach: Midline Location: L3-4 Injection Technique: single-shot Needle Needle Type: pencil-tip Needle Gauge: 25 G Needle Length: 3.5 in Assessment Events: tolerated well Medications Administered Bupivacaine-dextrose 0.75 % (7.5 mg/mL) injection (SENSORCAINE MPF SPINAL), 1.6 mL SIGNATURE: Ml Wilson APRN.SAP DEVELOPER PATIENT NAME: Julia Villeda DATE: October 03, 2020 TIME: 2:23 PM CSN: [id number] NoteHNO ID: [id number] Author: Ml Wilson APRN.CRNA Service: ? 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 and patient sedated or unresponsive Reason for block: post-op pain management/at surgeon's request Staffing Anesthesiologist: Eliezer Child MD Performed by: anesthesiologist Preparation Sterility Preparation: hand hygiene performed prior to procedure, surgical cap used, mask used, sterile drape used during line insertion, skin prep agent completely dried prior to procedure Site Prep: Chloraprep Pre-Procedure Neuro Exam Location: RLE Sensory: sensory deficit Motor: pre-existing condition Procedure Details Patient Position: supine Monitoring: Pulse OX, EKG and NIBP Block Type Lower Extremity: distal femoral (adductor canal) Laterality: right Injection Technique: single-shot Ultrasound Guided: Yes Image in Chart: yes Local Infiltration: Yes Needle Needle Type: echogenic Needle Gauge: 22 G Needle Length: 100 mm Needle Localization: ultrasound Assessment Injection assessment: negative aspiration, no paresthesia on injection, incremental injection and local visualized surrounding nerve on ultrasound Post-Procedure Neuro Exam Expected Regional Anesthesia: Yes Medications Administered Ropivacaine (PF) 5 mg/mL (0.5 %) injection (NAROPIN), 14 mL dexamethasone sodium phosphate injection (DECADRON), 10 mg SIGNATURE: Ml Wilson APRN.CRNA PATIENT NAME: Julia Villeda DATE: October 03, 2020 TIME: 1:36 PM CSN: [id number] HospitalEvaluation noteNortSchooner Information [employer] Other Evaluation noteNo assessment information available [facility] Work Phone: Evaluation noteNo InformationNort [employer] Other Evaluation note* Diagnosis Onset Date Resolution Status BMI 35.0-35.9,adult acute Bradley's disease acute Hypertension acute Sleep apnea treated with con tinuous positive airway pressure (CPAP) acute [facility] Work Phone: Evaluation note* Diagnosis History of PSVT (paroxysmal supraventricular tachycardia) Palpitations Primary hypertension Unspecified essential hypertension RBBB Pre-syncope Syncope and collapse Bradley's disease Chronic lymphocytic thyroiditis Obstructive sleep apnea syndrome Obstructive sleep apnea (adult) (pediatric) Abnormal EKG Nonspecific abnormal electrocardiogram (ECG) (EKG) documented in this encounter [facility] Work Phone: Evaluation note* Diagnosis History of PSVT (paroxysmal supraventricular tachycardia) Palpitations Pre-syncope Syncope and collapse Abnormal EKG Nonspecific abnormal electrocardiogram (ECG) (EKG) documented in this encounter [facility] Work Phone: Evaluation note* Diagnosis History of PSVT (paroxysmal supraventricular tachycardia) Palpitations Primary hypertension Unspecified essential hypertension RBBB Bradley's disease Chronic lymphocytic thyroiditis BMI 37.0-37.9, adult Never smoked tobacco High risk medication use Medication course changed Obstructive sleep apnea syndrome Obstructive sleep apnea (adult) (pediatric) Pre-syncope Syncope and collapse documented in this encounter [facility] Work Phone: History general Narrative - Reported* Type Description Date Medical History Hashimotos Medical History Panic Attacks Medical History Sleep Apnea Surgical History T&A 1955 Surgical History GUM SURGERY 1979 Surgical History D&C X 2 1987/ Surgical History cholecystectomy 2010 Surgical History total hystrectomy 04/2014 Surgical History rotator cuff rt shoulder 05/17 Surgical History knee replacement Hospitalization History SEE ABOVE SURGERY Hospitalization History [facility] [place] [place]-TOTAL HYSTRECTOMY 1 06/2013 [employer] Other [employer] general Narrative - ReportedNort[employer]oon[employer] Other Hisgs[employer] general Narrative - Reported* Type Description Date Medical History Hashimotos Medical History Panic Attacks Medical History Sleep Apnea Surgical History T&A 1955 Surgical History GUM SURGERY 1980 Surgical History D&C X 2 Surgical History cholecystectomy 2010 Surgical History total hystrectomy 04/2014 Surgical History rotator cuff rt shoulder 05/17 Surgical History knee replacement BILAT 10/21 Hospitalization History SEE ABOVE SURGERY Hospitalization History [facility] [place] [place]TOTAL HYSTRECTOMY 1 06/2013 [employer] Other History general Narrative - Reported* Type Description Date Medical History Hashimotos Medical History Panic Attacks Medical History Sleep Apnea Surgical History T&A 1955 Surgical History GUM SURGERY 1979 Surgical History D&C X 2 Surgical History cholecystectomy 2010 Surgical History total hystrectomy 04/2014 Surgical History rotator cuff rt shoulder 05/17 Surgical History knee replacement BILAT 10/21 Surgical History bunionectomy Left foot 09/10/22 Hospitalization History SEE ABOVE SURGERY Hospitalization History [facility] [place] [place]TOTAL HYSTRECTOMY 1 06/2013 [employer] Other Hislxiy general Narrative - Reported* Type Description Date Medical History Hashimotos Medical History Panic Attacks Medical History Sleep Apnea Surgical History T&A 1955 Surgical History GUM SURGERY 1979 Surgical History D&C X 2 Surgical History cholecystectomy 2010 Surgical History total hystrectomy 04/2014 Surgical History rotator cuff rt shoulder 05/17 Surgical History knee replacement BILAT 10/21 Surgical History bunionectomy Left foot 09/10/22 Surgical History R RADHA 02/11/23 Hospitalization History SEE ABOVE SURGERY Hospitalization History [facility] [place] [place]OTAL HYSTRECTOMY 1 06/2013 [employer] Other Summary Purpose Family History No Family History Records Found Relationship Condition Age at Onset Recorded Date/T macy father Myocardial infarction Unknown Dementia Unknown Malignant neoplasm of skin Unknown Not Specified Malignant neoplasm of colon Unknown Cerebrovascular accident (CVA) Unknown Relationship Condition Age at Onset Recorded Date/T macy father Myocardial infarction Unknown Dementia Unknown Malignant neoplasm of skin Unknown Not Specified Malignant neoplasm of colon Unknown Cerebrovascular accident (CVA) Unknown daughter Attention deficit disorder Unknown father Malignant neoplasm Unknown Unknown Family history of mental disorder Unknown Heart disease Unknown Not Specified Unknown History of stroke Unknown Malignant neoplasm Unknown Advance Directives No Advanced Directives Records Found Advance Directive Response Recorded Date/ Time Advance Directives Yes January 25, 2017 9:56am Advance Directive Response Recorded Date/ Time Advance Directives Yes January 25, 2017 10:56am Chief Complaint and Reason for Visit Chief Complaint Screening Chief Complaint Screening Sleep apnea annual follow up Chief Complaint M25.551 Sleep apnea 31-90 day follow up Chief Complaint Sleep apnea 31-90 da y follow up chest heaviness,neck pain Chief Complaint Sleep apnea 31-90 da y follow up chest heaviness,neck pain R55 R42 R42 R00.2 Chief Complaint chest heaviness,neck pain R55 R42 R42 R00.2 M25.551 Z79.899 M81.0 Chief Complaint chest heaviness,neck pain R55 R42 R42 R00.2 M25.551 Z79.899 M81.0 i49.3 Chief Complaint R55 R42 R42 R00.2 M25.551 Z79.899 M81.0 i49.3 right hip pain Chief Complaint R55 R42 R42 R00.2 M25.551 Z79.899 M81.0 i49.3 right hip pain Right Total Hip Pre Op Chief Complaint R55 R42 R42 R00.2 M25.551 Z79.899 M81.0 i49.3 right hip pain Right Total Hip Pre Op right hip pain Chief Complaint right hip pain Right Total Hip Pre Op right hip pain RTH post op Chief Complaint right hip pain Right Total Hip Pre Op right hip pain Z96.641 RTH post op Chief Complaint right hip pain Z96.641 RTH post op Chief Complaint Z96.641 RTH post op M47.1 Screening Chief Complaint M47.1 Screening r42 e06.3 r00.2 Chief Complaint r42 e06.3 r00.2 VONDA / ANNUAL Reason for Visit BMI 35.0-35.9,adult Bradley's disease Hypertension Sleep apnea treated with continuous positive airway pressure (CPAP) Reason for Referral Specialty Diagnoses / Procedures Referred By Kirt coppola Referred To Contact Radiology Diagnoses History of PSVT (paroxysmal supraventricular tachycardia) Palpitations Pre-syncope Abnormal EKG Procedures Nuclear Stress Test CHG MYOCARDIAL SPECT MULTIPLE STUDIES Mary Alice Tatum MD [address] [facility] [address] [place] [address] Referral ID Status Reason Start Date Expiration Date V isits Requested Visits Authorized [id number] Pending Review 08/26/2023 08/25/2024 5 5 Specialty Diagnoses / Procedures Referred By Contac t Referred To Contact Diagnoses History of PSVT (paroxysmal supraventricular tachycardia) Procedures ECG 12 Lead Mary Alice Tatum MD [address] [facility] [address] [place] [address] Referral ID Status Reason Start Date Expiration Date V isits Requested Visits Authorized [id number] Authorized 08/26/2023 08/25/2024 1 1 Specialty Diagnoses / Procedures Referred By Contac t Referred To Contact Cardiology Diagnoses History of PSVT (paroxysmal supraventricular tachycardia) Procedures Follow Up In Cardiology Mary Alice Tatum MD [address] [facility] [address] [place] [address] Mary Alice Tatum MD [address] [facility] [address] [place] [address] Referral ID Status Reason Start Date Expiration Date V isits Requested Visits Authorized [id number] Authorized 08/26/2023 08/25/2024 1 1 Additional Source Comments INFORMATION SOURCE (unrecogn ized section and content) DATE CREATED AUTHOR 10/05/2020 [facility] DATE CREATED AUTHOR AUTHOR'S ORGANIZ ATION 07/26/2021 [facility] DATE CREATED AUTHOR AUTHOR'S ORGANIZ ATION 10/20/2021 [facility] d[facility] Specialist DATE CREATED AUTHOR AUTHOR'S ORGANIZ ATION 09/14/2022 [facility] DATE CREATED AUTHOR AUTHOR'S ORGANIZ ATION 08/15/2023 [facility] DATE CREATED AUTHOR AUTHOR'S ORGANIZ ATION 10/02/2023 [facility] DATE CREATED AUTHOR AUTHOR'S ORGANIZ ATION 10/06/2023 [facility] DATE CREATED AUTHOR AUTHOR'S ORGANIZ ATION 10/18/2023 [facility] dical Specialists EPIC REASON FOR VISIT (unrecogniz ed section and content) Reason Comments Establish Care Svt memo Specialty Diagnoses / Procedures Referred By Kirt coppola Referred To Contact Diagnoses History of PSVT (paroxysmal supraventricular tachycardia) Procedures ECG 12 Lead Mary Alice Tatum MD [address] [place] [address] Referral ID Status Reason Start Date Expiration Date V isits Requested Visits Authorized [id number] Authorized 08/26/2023 08/25/2024 1 1 Specialty Diagnoses / Procedures Referred By Kirt coppola Referred To Contact Radiology Diagnoses History of PSVT (paroxysmal supraventricular tachycardia) Palpitations Pre-syncope Abnormal EKG Procedures Nuclear Stress Test CHG MYOCARDIAL SPECT MULTIPLE STUDIES Mary Alice Tatum MD [address] [place] [address] Referral ID Status Reason Start Date Expiration Date V isits Requested Visits Authorized [id number] Authorized 08/26/2023 08/25/2024 5 5 Reason Comments Follow-up Follow up after stre ss test Specialty Diagnoses / Procedures Referred By Kirt coppola Referred To Contact Cardiology Diagnoses History of PSVT (paroxysmal supraventricular tachycardia) Procedures Follow Up In Cardiology Mary Alice Tatum MD [address] [place] [address] Mary Alice Tatum MD [address] [facility] [address] [place] [address] Referral ID Status Reason Start Date Expiration Date V isits Requested Visits Authorized [id number] Authorized 08/26/2023 08/25/2024 1 1 Care Teams (unrecognized sec tion and content) Team Status: Active Member Role Status Dates Nancy Jha DO Primary Care Provider Active Team Status: Inactive Member Role Status Dates Nancy Jha DO Primary Care Provi quinton, Attending Provider Active Start: July 17, 2023 End: July 17, 2023 Team Status: Inactive Member Role Status Dates Nancy Petznick , DO Primary Care Provider Active Start: August 26, 2023 End: August 26, 2023 Connie Levine DISTRICT ATTORNEY Attending Provider Active Start: August 26, 2023 End: August 26, 2023 Team Status: Active Member Role Status Dates Provider Conversion Attending Provider Active St art: May 09, 2023 Team Status: Inactive Member Role Status Dates Nancy Rojoteaayan DO Primary Care Provider Active Start: May 09, 2023 End: May 09, 2023 LEVI Hansen Attending Provider Active Start: May 09, 2023 End: May 09, 2023 Team Status: Inactive Member Role Status Dates Nancy RojoDO shira Primary Care Provider Active Start: May 20, 2023 End: May 20, 2023 Referral Self Attending Provider Active Start: [email or web address] End: May 20, 2023 Team Status: Inactive Member Role Status Dates Nancy Memo , Primary Care Provider Active Frank Guzman , DO Attending Provider Active Team Status: Inactive Member Role Status Dates Nancy Jha , Primary Care Provider Active Connie Levine DISTRICT ATTORNEY Attending Provider Active Team Status: Inactive Member Role Status Dates Nancy Rojoteaayan , DO Primary Care Provider Active Darek Chang II, MD Attending Provider Active Team Status: Inactive Member Role Status Dates Nancy Jha DO Primary Care Provider Active Frandy Pedersen PA-C Emergency Provider Active Team Status: Inactive Member Role Status Dates Nancy Memo , DO Primary Care Provider, Attending Provider Active Team Status: Active Member Role Status Dates Nancy Jha , Primary Care Provider Active Darek Chang II, MD Attending Provider Active Team Status: Inactive Member Role Status Dates Nancy Jha , Primary Care Provider Active LEVI Hansen Attending Provider Active Team Status: Inactive Member Role Status Dates Nancymaryse Jha , Primary Care Provider Active Referral Self Attending Provider Active Farm Operations Technical Director Relationship Specialty Start Date End Date Nancy Jha DO [address] [place] [address] PCP - General Family Medicine 08/26/23 Farm Operations Technical Director Relationship Specialty Start Date End Date Nancy Jha DO [address] [place] [address] PCP - General Family Medicine 08/26/23 Farm Operations Technical Director Relationship Specialty Start Date End Date Nancy Jha, DO [address] [place] [address] PCP - General Family Medicine 08/26/23 Farm Operations Technical Director Relationship Specialty Start Date End Date Nancy Jha, DO [address] [place] [address] PCP - General Family Medicine 08/26/23 Farm Operations Technical Director Relationship Specialty Start Date End Date Nancy Jha, DO [address] [place] [address] PCP - General Family Medicine 08/26/23 Goals (unrecognized section and content) Goals may be documented in a n alternate section FOR RECORDS PERTAINING TO PATIENTS WHO ARE OR HAVE BEEN ENROLLED IN A CHEMICAL DEPENDENCY/SUBSTANCEABUSE PROGRAM, SOME INFORMATION MAY BE OMITTED. This clinical summary was aggregated from multiple sources. Caution should be exercised in using it in the provision of clinical care. This summary normalizes information from multiple sources, and as a consequence, information in this document may materially change the coding, format and clinical context of patient data. In addition, data may be omitted in some cases. CLINICAL DECISIONS SHOULD BE BASED ON THE PRIMARY CLINICAL RECORDS. [facility]. provides no warranty or guarantee of the accuracy or completeness of information in this document.
== END 2023-12-24 14:01 | disposition home or self-care (01) ==
LOC: EC 14:00
PROVIDERS: Visit Provider Podiatrist Foot & Ankle Surgery
DX: M21.622 Bunionette of left foot (principal)
CPT/HCPCS: 73630

== ENCOUNTER 2024-06-29 13:15 | Outpatient (OUT) | payer OTHER, SELFPAY ==
--- NOTE | 2024-06-29 14:42 | PM.PRESUREVA ---
History of Present Illness History of Present Illness Chief complaint: Marcio Galvez, primary osteoarthritis left Narrative: Patient presents for presurgical testing. The patient reports left foot pain which has been ongoing for years without trauma or injury. She had previous bunionette surgery on this foot and states she did not get any relief. She states her pain is worse with certain footwear and standing for long periods of time. She denies numbness, tingling, weakness, or any other complaints. Review of Systems ROS Narrative REVIEW OF SYSTEMS: Negative except as stated in HPI, ten or more systems reviewed. Constitutional: No fever, chills, weakness ENT: No sore throat or epistaxis Cardiovascular: Reports edema and angina with exertion Respiratory: No shortness of breath, cough, or wheezing Gastrointestinal: No abdominal pain, constipation, diarrhea, or vomiting Genitourinary: No dysuria or hematuria Neurological: No numbness, tingling, weakness, or headache Psychiatric: No mood changes [facility] Medical History (Updated 06/29/24 @ 14:40 by Lanette Denton NP) Angina of effort ?I20.89 - Other forms of angina pectoris (ICD-10) History of hemorrhage (1987) ?Z87.59 - Personal history of other complications of , childbirth and the puerperium (ICD-10) Panic attacks ?F41.0 - Panic disorder [episodic paroxysmal anxiety] (ICD-10) Sleep apnea ?G47.30 - Sleep apnea, unspecified (ICD-10) Vertigo ?R42 - Dizziness and giddiness (ICD-10) GERD (gastroesophageal reflux disease) ?K21.9 - Gastro-esophageal reflux disease without esophagitis (ICD-10) Back pain ?M54.9 - Dorsalgia, unspecified (ICD-10) Arthritis ?M19.90 - Unspecified osteoarthritis, unspecified site (ICD-10) Dyspnea on exertion ?R06.09 - Other forms of dyspnea (ICD-10) Typical angina ?I20.9 - Angina pectoris, unspecified (ICD-10) Extremity edema ?R60.0 - Localized edema (ICD-10) Supraventricular tachycardia ?I47.10 - Supraventricular tachycardia, unspecified (ICD-10) Hypothyroidism ?E03.9 - Hypothyroidism, unspecified (ICD-10) Postoperative nausea and vomiting ?R11.2 - Nausea with vomiting, unspecified (ICD-10) ?Z98.890 - Other specified postprocedural states (ICD-10) Anemia ?D64.9 - Anemia, unspecified (ICD-10) 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 (ICD-10) Dupuytrens contracture ?M72.0 - Palmar fascial fibromatosis [Dupuytren] (ICD-10) Corns and callosities ?L84 - Corns and callosities (ICD-10) Foot pain ?M79.673 - Pain in unspecified foot (ICD-10) Osteophyte ?M25.70 - Osteophyte, unspecified joint (ICD-10) Hammertoe ?M20.40 - Other hammer toe(s) (acquired), unspecified foot (ICD-10) Osteoarthritis of left ankle and foot ?M19.072 - Primary osteoarthritis, left ankle and foot (ICD-10) Bunionette of left foot ?M21.622 - Bunionette of left foot (ICD-10) Surgical History (Updated 06/29/24 @ 14:15 by Lanette Denton NP) S/P cataract extraction and insertion of intraocular lens (2024) ?Z98.49 - Cataract extraction status, unspecified eye (ICD-10) ?Z96.1 - Presence of intraocular lens (ICD-10) S/P cataract extraction and insertion of intraocular lens (2023) ?Z98.49 - Cataract extraction status, unspecified eye (ICD-10) ?Z96.1 - Presence of intraocular lens (ICD-10) History of arthroplasty of knee (2020) ?Z96.659 - Presence of unspecified artificial knee joint (ICD-10) History of arthroscopy of shoulder (2014) ?Z98.890 - Other specified postprocedural states (ICD-10) History of dilation and curettage (2012) ?Z98.890 - Other specified postprocedural states (ICD-10) History of dilation and curettage (2009) ?Z98.890 - Other specified postprocedural states (ICD-10) History of colonoscopy ?Z98.890 - Other specified postprocedural states (ICD-10) History of dilation and curettage (1987) ?Z98.890 - Other specified postprocedural states (ICD-10) S/P total hip arthroplasty (2022) ?Z96.649 - Presence of unspecified artificial hip joint (ICD-10) H/O foot surgery (2022) ?Z98.890 - Other specified postprocedural states (ICD-10) History of total knee arthroplasty (2018) ?Z96.659 - Presence of unspecified artificial knee joint (ICD-10) History of cholecystectomy (2010) ?Z90.49 - Acquired absence of other specified parts of digestive tract (ICD-10) History of hysterectomy (2013) ?Z90.710 - Acquired absence of both cervix and uterus (ICD-10) Family History (Updated 06/29/24 @ 14:09 by Lanette Denton NP) Other Family history of cancer Family history of stroke Heart disease Social History (Updated 06/29/24 @ 14:07 by Lanette Denton NP) Within the past year, how often did you have a drink containing alcohol: never Score interpretation: A score less than 3 is consistent with normal alcohol consumption. 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 Highest level of school completed/degree received: Master's degree Meds Home Medications and Allergies Home Medications ?Medication ?Instructions ?Recorded ?Confirmed ?Type Triest compound estrogen capsule PO 06/29/24 History ascorbic acid (vitamin C) 1,000 mg 1 g PO DAILY 06/29/24 06/29/24 History capsule aspirin 81 mg tablet,delayed 81 mg PO DAILY 06/29/24 06/29/24 History release (Adult Aspirin Regimen) cholecalciferol (vitamin D3) 125 5,000 unit PO DAILY 06/29/24 06/29/24 History mcg (5,000 unit) capsule clonazepam 0.5 mg tablet 0.5 mg PO Q12H PRN anxiety 06/29/24 06/29/24 History diltiazem HCl 120 mg 120 mg PO QPM 06/29/24 06/29/24 History capsule,extended release 24 hr ferrous sulfate 325 mg (65 mg 325 mg PO .every other day 06/29/24 06/29/24 History iron) tablet,delayed release flecainide 50 mg tablet 50 mg PO Q12H 06/29/24 06/29/24 History levothyroxine 100 mcg tablet 100 mcg PO .every other day 06/29/24 06/29/24 History levothyroxine 112 mcg tablet 112 mcg PO .every other day 06/29/24 06/29/24 History lisinopril 20 mg tablet 20 mg PO DAILY 06/29/24 06/29/24 History magnesium citrate 100 mg capsule 400 mg PO DAILY 06/29/24 06/29/24 History multivitamin (Daily Multi-Vitamin 1 tab PO DAILY 06/29/24 06/29/24 History tablet) nitroglycerin 0.4 mg sublingual 0.4 mg sublingual Q5M PRN chest 06/29/24 06/29/24 History tablet pain selenium 200 mcg tablet (SelenoMax) 200 mcg PO DAILY 06/29/24 06/29/24 History sertraline 25 mg tablet 25 mg PO QPM 06/29/24 06/29/24 History Allergies Allergy/AdvReac Type Severity Reaction Status Date / Time adhesive Allergy Rash Verified 06/29/24 13:57 bee venom protein (honey bee) Allergy localized Verified 06/29/24 13:57 swelling iodine Allergy vomiting/ra Verified 06/29/24 13:57 sh isosorbide Allergy Dizziness Verified 06/29/24 13:59 latex Allergy Rash Verified 06/29/24 13:57 loperamide (From Imodium A-D) Allergy Dizziness Verified 06/29/24 13:59 Penicillins Allergy Rash Verified 06/29/24 13:57 prednisone Allergy Dizziness Verified 06/29/24 13:59 shellfish derived Allergy Vomiting Verified 06/29/24 13:57 Exam Narrative Exam Narrative: Constitutional: Awake, alert, comfortable, well-appearing, nontoxic, interactive, vital signs as charted Head: Normocephalic, atraumatic Neck: Supple, normal appearance, normal range of motion, no meningeal signs, no lymphadenopathy Respiratory: No respiratory distress, breath sounds clear Cardiovascular: Regular rate and rhythm, strong and regular heart tones Musculoskeletal: 2+ bilateral pedal edema, tenderness with palpation of the left fifth toe, tenderness over the fifth metatarsal on the dorsal aspect with mild swelling, good capillary refill, sensation intact Skin: No rashes or induration, no lesions, only visible skin inspected Neuro: No neurological deficits, normal sensation Psychiatric: Oriented ?3, normal affect Assessment and Plan Assessment and Plan (1) Bunionette of left foot: (2) Osteoarthritis of left ankle and foot: (3) Hammertoe: (4) Osteophyte: (5) Foot pain: Plan Left fifth metatarsal head resection with possible fifth toe pinning, exostectomy naviculocuneiform joint scheduled with Dr. Smith July 09, 2024.
[2024-06-29 15:26] LABS: Basophils Absolute Auto 0.1 10^3/uL (0.0-0.1); Eosinophils Absolute Auto 0.3 10^3/uL (0.0-0.7); Eosinophils Percent Auto 4.6 % (0.9-7.0); Hematocrit 38.1 % (36.0-48.0); Hemoglobin 12.5 g/dL (12.0-16.0); Immature Granulocytes Abs Auto 0.01 10^3/uL (0.00-0.03); Immature Granulocytes Pct Auto 0.2 % (0.0-0.5); Lymphocytes Percent Auto 33.5 % (20.5-60.0); Mean Corpuscular HGB Conc 32.8 g/dL (29.9-35.2); Mean Corpuscular Hemoglobin 28.6 pg (26.7-34.0); Mean Corpuscular Volume 87.2 fL (81.0-99.0); Monocytes Absolute Auto 0.5 10^3/uL (0.3-0.8); Monocytes Percent Auto 8.9 % (1.7-12.0); Neutrophils Percent Auto 51.8 % (43.0-75.0); Platelet Count 290 10^3/uL (150-450); Red Blood Count 4.37 10^6/uL (4.20-5.40); Red Cell Distribution Width 13.1 % (11.0-15.0); White Blood Count 5.8 10^3/uL (4.0-11.0)
== END 2024-06-29 13:16 | disposition home or self-care (01) ==
LOC: PST 13:18
PROVIDERS: PCP Family Medicine; Visit Provider Podiatrist Foot & Ankle Surgery
DX: Z01.812 Encounter for preprocedural laboratory examination (principal); Z01.818 Encounter for other preprocedural examination; M21.622 Bunionette of left foot; M19.072 Primary osteoarthritis, left ankle and foot
CPT/HCPCS: 36415; 85025; G0463

== ENCOUNTER 2024-07-09 08:06 | Day surgery (SDC) | payer OTHER, SELFPAY ==
[2024-06-29 14:37] VITALS: BP 124/78; PULSE 64; TEMP 36.3; O2SAT 97; BMI 36.7
[2024-07-09 08:20] VITALS: BP 149/72; PULSE 68; TEMP 36.4; O2SAT 95; BMI 36.7
--- OUTSIDE RECORDS SUMMARY | 2024-07-09 08:24 | XMS_ITS | CCD ---
Author Organization [facility] Care Team Providers Care Photographic Developer And Printer Name Role Phone Danielle Barros Unavailable Mary Alicea Unavailable DO Nancy Jha Primary Care Provider DO Frank Guzman Attending Provider [phone] RIDGE Levine Attending Provider [phone] MD Herman Chang II Attending Provider Herman Chang II Unavailable [phone] Keyshawn Acosta Unavailable PetDO Nancy alvarez Primary Care Provider [phone] MD Herman Chang II Attending Provider RIDGE Levine Attending Provider MARGARITO JONES Admitting Unavailable NANCY JHA Primary [...] Unavailable DO Nancy Jha Primary Care Provider [phone] ARIELLA Pedersen Emergency Provider [phone] DO Nancy Jha Attending Provider DO Nancy Jha Primary Care Provider MD Herman Chang II Attending Provider Petznick, DO Nancy Primary Care Provider [phone] Petznick, DO Nancy Primary Care Provider MD Herman Chang II Attending Provider Petznick, DO Nancy Primary Care Provider MD Herman Chang II Attending Provider Amber Wang Unavailable Petznick, DO Nancy Primary Care Provider MD Herman Chang II Attending Provider [phone] LEVI Wang Attending Provider Petznick, DO Nancy Primary Care Provider MD Herman Chang II Attending Provider Self, Referral Attending Provider Unavailable Petznick, DO Nancy Primary Care Provider [phone] Petznick, DO Nancy Attending Provider Petznick, DO Nancy Primary Care Provider [phone] Petznick, DO Nancy Attending Provider Petznick Nancy LEGGETT Primary Care Provider [phone] MARY ALICE TATUM Referring Unavailable PETTEAICK, NANCY Slaughter Primary Care Unavailable MARY ALICE TATUM Referring Unavailable PETZNICK, NANCY Slaughter Primary Care Unavailable MARY ALICE TATUM Referring Unavailable PETZNICK, NANCY C Primary Care Unavailable Petznick, DO Nancy Primary Care Provider MD Mikey Gallegos Emergency Provider MD Herman Chang II Attending Provider Petznick Nancy LEGGETT Primary Care Provid er Petznick Nancy LEGGETT Primary Care Provider [phone] Petteaick, Nancy Primary Care Unavailable Mary Alice Tatum Attending Unavailable Mary Alice Ttaum Admitting Unavailable Petznick, Nancy Primary Care Unavailable Frank Guzman Attending Unavailable Frank Guzman Admitting Unavailable Bernardo II, Herman Odom Attending Unavailabl e Bernardo II, Herman Odom Admitting Unavailabl e Petznick, Nancy Primary Care Unavailable Bernardo II, Herman Odom Attending Unavailabl e Bernardo II, Herman Odom Admitting Unavailabl e Petznick, Nancy Primary Care Unavailable Petznick, Nancy Admitting Unavailable Petznick, Nancy Attending Unavailable Petznick, Nancy Primary Care Unavailable Mikey Gallegos Attending Unavailable Mikey Gallegos Admitting Unavailable Petznick, Nancy Primary Care Unavailable Petznick DO, Nancy Primary Care Provider Herman Chang MD Attending Provider Frank Guzman DO Attending Provider Mary Alice Tatum MD Attending Provider [phone] JACI BRANDT Attending Unavailable JACI BRANDT Attending Unavailable PETZNICKNANCY Attending Unavailable PETZNICK, NANCY Slaughter Attending Unavailable PETZNICK, NANCY Slaughter Attending Unavailable PETZNICK, NANCY C Attending Unavailable PETZNICK, NANCY C Referring Unavailable ELKIN WOMACK Attending Unavailable HERMAN CHANG Referring Unavailable JACI BRANDT Attending Unavailable FRANK GUZMAN Attending Unavailable CASSANDRA PAYTON Attending Unavailable HERMAN CHANG Referring Unavailable ELKIN WOMACK Attending Unavailable HERMAN CHANG Referring Unavailable ELKIN WOMACK Attending Unavailable HERMAN CHANG Referring Unavailable JACI BRANDT Attending Unavailable JACI BRANDT Attending Unavailable JACI BRANDT Attending Unavailable MARY ALICE TATUM Attending Unavailable PETZNICK, NANCY C Primary Care Unavailable MARY ALICE TATUM Attending Unavailable PETZNICK, NANCY C Primary Care Unavailable MARY ALICE TATUM Referring Unavailable PETZNICK, NANCY C Primary Care Unavailable MARY ALICE TATUM Attending Unavailable MARY ALICE TATUM Referring Unavailable PETZNICK, NANCY C Primary Care Unavailable MARY ALICE TATUM Attending Unavailable PETZNICK, NANCY C Primary Care Unavailable MARY ALICE TATUM Attending Unavailable JARRED TATUMA Referring Unavailable PETZNICK, NANCY C Primary Care Unavailable Allergies Allergy Classification Reported Allergen(s) Allergy Type Date of Onset Reaction(s) Facility (13 sources) Bee/Wasp/Ant venom Propensity to adverse reactions Unknown [employer] (P) Other (20 sources) Iodine; Translations: [IODINE] Drug Allergy 04-27-20 09 rash, Itching, Unknown [facility] Comment on above: Pt states both inte rnal & external iodine (20 sources) Latex; Translations: [LATEX] Propensity to adverse reactions 10-11-19 16 rash, Itching, Unknown [facility] (20 sources) Penicillin; Translations: [penicillin] Drug Allergy 08-26-19 rash, Itching [facility] Repository (20 sources) Shellfish Propensity to adverse reactions 11-06-19 07 GI Upset, Nausea/vomitin g [employer] ([employer]) Other (13 sources) paper tape- instead of regular tape to avoid blist Propensity to adverse reactions Unknown [employer] ([facility]) Other (3 sources) Adhesive agent; Translations: [ADHESIVE] Drug allergy (disorder) 08-26-19 [facility] Repository (1 source) bee venom Drug allergy (disorder) [facility] (1 source) Iodine Drug Allergy [facility] (1 source) Latex Drug allergy (disorder) [facility] (1 source) Shellfish Drug allergy (disorder) [facility] (20 sources) Penicillins; Translations: [Penicillins] Allergy to substance 04-27-20 09 Itching, Rash [facility] (20 sources) Shellfish; Translations: [shellfish derived] Allergy to substance 10-18-19 Unknown Reaction, Vomiting [facility] (20 sources) venom-honey bee; Translations: [venom-honey bee] Allergy to substance 10-18-19 Edema [facility] (16 sources) Adhesive Tape; Translations: [adhesive tape] Allergy to substance 01-30-20 23 Rash [facility] (13 sources) bee venom protein (honey bee); Translations: [BEE VENOM PROTEIN (HONEY BEE)] Allergy to substance 10-23-19 23 Swelling, Unknown [facility] (2 sources) paper tape- instead of regular Allergy to substance 05-09-20 [facility] (9 sources) Adhesive agent Drug Intolerance 08-26-19 24 Itching, Rash, Unknown [place] (20 sources) Metoprolol; Translations: [METOPROLOL] Drug Allergy 09-19-19 24 Headache, Dizziness, Nausea/vomitin g, GI intolerance [place] (2 sources) SHELLFISH CONTAINING PRODUCTS; Translations: [SHELLFISH CONTAINING PRODUCTS] Propensity to adverse reactions to food (disorder) 11-06-19 [facility] Repository (3 sources) Adhesive Tape Allergy to substance 01-11-20 15 Rash [facility] (20 sources) Penicillin G Drug Allergy 04-27-20 09 Rash, Itching, Unknown [facility] (3 sources) bee stings [Other] Propensity to adverse reactions 11-06-19 Swelling [facility] (20 sources) Honey bee venom Allergy to substance 10-23-19 23 Swelling, Unknown [facility] (20 sources) Latex Allergy to substance 10-11-19 16 Itching, Rash, Unknown [facility] (20 sources) Prednisone Allergy to substance 10-23-19 23 [facility] (20 sources) Shellfish Propensity to adverse reactions 11-06-19 [facility] (20 sources) Shellfish-Deriv ed Products Drug Allergy 10-23-19 23 [facility] (20 sources) Wound Dressing Adhesive Drug Allergy 10-23-19 23 Itching, Rash, Unknown [facility] (1 source) Iodine Drug Allergy 02-24-20 [facility] Repository (1 source) Latex Drug allergy (disorder) 02-24-20 [facility] Repository (6 sources) Isosorbide; Translations: [ISOSORBIDE] Drug Allergy 06-04-19 [facility] Work Phone: (1 source) Isosorbide Drug Allergy 06-04-19 Dizziness [place] Work Phone: Medications Current Medications Medication Drug Class(es) Dates Sig (Normalized) Sig (Original) acetaminophen 500 mg oral tablet (7 sources) Start: 01-31-2023 take 2 tablets by mouth every eight hours for pain Acetaminophen 500 MG 2 tablets for pain Orally every 8 hrs for 30 days MED TO BED UPON DISCHARGE DOS: 02/11/2023 Jan, Active Start: 10-04-2020 take 2 tablets by mo ut every four hours as needed acetaminophen (TYLENOL) 325 mg tablet Take 2 tablets by mouth every 4 hours as needed for Pain. 100 tablet 10/04/2020 Active ascorbic acid 1000 mg oral tablet (20 sources) Vitamin C Start: 10-17-2022 take 1 tablet by mouth once daily Ascorbic Acid (Vitamin C) (Vitamin C) 1,000 mg Tablet Active 1000 MG PO Daily October 16, 2022 11:00pm Vitamin C Active aspirin 81 mg delayed release oral tablet (20 sources) Platelet Aggregation Inhibitor, Nonsteroidal Anti-inflammatory Drug Start: 02-24-2024 aspirin 81 MG EC tablet Daily 02/24/2024 Active Start: 01-31-2023 take 1 tablet by janet twice daily Aspirin 81 81 MG 1 tablet Orally Twice a day for 35 days MED TO BED UPON DISCHARGE DOS: 02/11/2023 Jan, Active Start: 10-04-2020 take 1 tablet by janet twice daily aspirin, enteric coated (ASPIRIN, ENTERIC COATED) 81 mg EC tablet Take 1 tablet by mouth twice daily. 84 tablet 10/04/2020 Active celecoxib 100 mg oral capsule (8 sources) Nonsteroidal Anti-inflammatory Drug Start: 04-02-2024 take 1 capsule by mouth twice daily at mealtime Celecoxib 100 mg capsule Active 100 MG PO bid 60 April 01, 2024 11:00pm Take with food. Start: 01-31-2023 take 1 capsule by mo [facility] every twelve hours Celecoxib 200 MG 1 capsule with food Orally Twice a day for 30 days MED TO BED UPON DISCHARGE DOS: 02/11/2023 Jan, Active cholecalciferol 0.125 mg oral tablet (20 sources) Vitamin D Start: 10-17-2022 take 1 tablet by mouth once daily Cholecalciferol (Vitamin D3) (Vitamin D3) 125 mcg (5,000 unit) Tablet Active 8000 UNIT PO Daily October 16, 2022 11:00pm Start: 10-17-2022 take 1 tablet by janet once daily Cholecalciferol (Vitamin D3) (Vitamin D3) 125 mcg (5,000 unit) Tablet Active 23905 UNIT PO Daily October 17, 2022 12:00am take 2 tablets by mo uth once daily cholecalciferol (Vitamin D3) 5,000 Units tablet Take 2 tablets (10,000 Units) by mouth once daily. Active cholecalciferol (Vitamin D-3) 25 MCG (1000 UT) capsule Active cholecalciferol, vitamin D3, 4,000 unit cap Take 6,000 Units by mouth. Active clindamycin 300 mg oral capsule (20 sources) Lincosamide Antibacterial Start: 01-24-2021 End: 02-11-2024 clindamycin (Cleocin) 300 mg capsule Take 1 capsule (300 mg) by mouth. Before and after dental appointments 01/24/2021 Active Start: 01-24-2021 take 2 capsules by m outh every hour Clindamycin HCl 300 MG 2 capsules Orally 1 hour prior to procedure for 1 day(s) May, Active take 2 capsules by m outh every eight hours Clindamycin HCl 300 MG 2 capsules Orally every 8 hrs Active clonazePAM 0.5 mg oral tablet (20 sources) Benzodiazepine Start: 11-08-2022 take 1 tablet by mouth once daily as needed Clonazepam 0.5 mg tablet Active 0.5 MG PO Daily as needed for Panic Attack(S) January 28, 2023 11:00pm Start: 11-08-2022 take 1 tablet by janet twice daily as needed for anxiety clonazePAM (KlonoPIN) 0.5 MG tablet Indications: Anxiety Take 1 tablet (0.5 mg) by mouth 2 (two) times a day as needed for anxiety 25 tablet 11/04/2023 Active COMPOUNDED PRESCRIPTION (3 sources) Start: 11-05-2006 COMPOUNDED PRESCRIPTION tiest 2.5mg sr one cap twice daily 0 0 11/05/2006 Active diclofenac sodium 0.01 mg/mg topical gel (3 sources) Nonsteroidal Anti-inflammatory Drug Start: 04-02-2024 apply 2 g topically once as needed for pain Diclofenac Sodium 1 % gel Active 2 GM TOPICAL as directed as needed for knee pain 07 02April 01, 2024 11:00pm up to 4x's a day Start: 04-02-2024 apply 2 g topically once Diclo fenac Sodium Active 2 GM TOPICAL as directed 07 02April 02, 2024 12:00am up to 4x's a day 24 hr dilTIAZem hydrochloride 120 mg extended release oral capsule (20 sources) Calcium Channel Steve Start: 04-02-2024 take 1 capsule by mouth once daily Diltiazem Hcl 240 mg capsule,extended release 24 hr Active 240 MG PO Daily April 01, 2024 11:00pm Start: 09-30-2023 End: 06-29-2025 take 1 capsule by mouth once daily dilTIAZem CD (Cardizem CD) 120 mg 24 hr capsule Indications: Palpitations , Primary hypertension Take 1 capsule (120 mg) by mouth once daily. 90 capsule 2 12/30/2023 06/29/2024 Discontinued (Reorder) docusate sodium 100 mg oral capsule (2 sources) Start: 10-04-2020 take 1 capsule by mouth twice daily docusate sodium (COLACE) 100 mg capsule Take 1 capsule by mouth twice daily. 20 capsule 10/04/2020 Active Estradiol (4 sources) Estrogen ESTRADIOL PO Saturnino e by mouth Buderer compound TRIEST Active ferrous sulfate (20 sources) Start: 01-29-2023 take 1 tablet by mouth once daily Ferrous Sulfate 325 mg (65 mg iron) Tablet Active 130 MG PO Daily January 28, 2023 11:00pm Start: 01-29-2023 take 130 mg by mouth once tasha y Ferrous Sulfate Active 130 MG PO Daily January 29, 2023 12:00am Start: 01-29-2023 take 130 mg by mouth once tasha y Ferrous Sulfate Active 130 MG PO Daily January 29, 2023 12:00am take 1 tablet by janet th every other day ferrous sulfate, 325 mg ferrous sulfate, tablet Take 1 tablet (325 mg) by mouth every other day. Active take 1 tablet by janet th three times weekly Iron 325 (65 Fe) MG 1 tablet Orally Three times a Week Active fluticasone propionate 0.05 mg/actuat metered dose nasal spray (3 sources) Corticosteroid Start: 12-15-2019 fluticasone (FLONASE) 50 mcg/actuation nasal spray 12/15/2019 Active Handicap placards as directed (1 source) Start: 05-09-2023 Handicap placards as directed as directed as directed as directed for 365 days 1 year handicap placard: 05/09/2023- 05/09/2024 May, Active isosorbide dinitrate 10 mg oral tablet (1 source) Nitrate Vasodilator Start: 02-24-2024 End: 02-23-2025 take 1 tablet by mouth three times daily isosorbide dinitrate (Isordil) 10 mg tablet Indications: Angina pectoris, unstable (Multi) Take 1 tablet (10 mg) by mouth 3 times a day. 270 tablet 3 02/24/2024 02/23/2025 Active levothyroxine sodium 0.112 mg oral tablet (20 sources) l-Thyroxine Start: 06-12-2024 take 1 tablet by mouth every other day levothyroxine (Synthroid, Levoxyl) 112 MCG tablet Indications: Bradley's thyroiditis (CMS/HCC) TAKE 1 TABLET BY MOUTH EVERY OTHER DAY ALTERNATING WITH 100 MCG DOSE 45 tablet 1 06/12/2024 Active Start: 12-18-2023 take 1 tablet by janet th every other day levothyroxine (Synthroid, Levoxyl) 100 MCG tablet Indications: Bradley's thyroiditis (CMS/HCC) TAKE 1 TABLET BY MOUTH EVERY OTHER DAY ALTERNATING WITH 112MCG 45 tablet 1 06/12/2024 Active Start: 12-18-2023 take 1 tablet by janet th every other day levothyroxine (Synthroid) 112 MCG tablet Indications: Bradley's thyroiditis (CMS/HCC) 1 po every other day alternating with 100mcg dose 90 tablet 12/18/2023 Active Start: 10-17-2022 take 1 tablet by janet once daily Levothyroxine 100 mcg tablet Active 100 MCG PO Daily October 16, 2022 11:00pm Start: 10-30-2016 take 1 tablet by janet once daily in the morning Levothyroxine Sodium 112 MCG 1 tablet in the morning on an empty stomach Orally Once a day for 90 days October, Active Start: 10-30-2016 take 1 tablet by janet every twenty-four hours Levothyroxine Sodium 88 MCG 1 tablet Orally Once a day for 90 days October, Active take 1 capsule by [facility] every other day at breakfast levothyroxine (Tirosint) 112 mcg capsule Take 1 capsule (112 mcg) by mouth every other day. Take on an empty stomach at the same time each day, either 30 to 60 minutes prior to breakfast Active take 1 capsule by mo [facility] once daily before breakfast levothyroxine 112 mcg cap Take 112 mcg by mouth daily before breakfast. Active Synthroid 100 MC G TAKE ONE TABLET BY MOUTH EVERY MORNING ON AN EMPTY STOMACH Orally Once a day for 90 days Not-Taking take 1 tablet by janet once daily in the morning Synthroid 88 TAKE ONE TABLET BY MOUTH EVERY MORNING ON AN EMPTY STOMACH for 30 Not-Taking lisinopril 20 mg oral tablet (20 sources) Angiotensin Converting Enzyme Inhibitor Start: 06-12-2024 End: 06-29-2025 take 1 tablet by mouth once daily lisinopril 20 mg tablet Indications: Primary hypertension Take 1 tablet (20 mg) by mouth once daily. 90 tablet 2 06/29/2024 06/29/2025 Active Start: 10-17-2022 End: 06-29-2024 take 1 tablet by mouth once daily Lisinopril 20 mg tablet Active 20 MG PO Daily October 16, 2022 11:00pm Magnesium (13 sources) take 1 tablet by mouth once tasha y Magnesium 400 MG 1 tablet Orally daily Active magnesium citrate 100 mg oral tablet (20 sources) Start: 10-17-2022 take 4 tablets by mouth once daily in the evening Magnesium Citrate 100 mg Tablet Active 400 MG PO Every evening October 16, 2022 11:00pm Start: 10-17-2022 take 400 mg by mouth once daily in the evening Magnesium Citrate Active 400 MG PO Every evening October 17, 2022 12:00am magnesium citrat e solution Take by mouth 400mg Active MAGNESIUM CITRAT E ORAL Take by mouth. Active MAGNESIUM CITRAT E ORAL Take by mouth early in the morning.. Active 24 hr metoprolol succinate 25 mg extended release oral tablet (1 source) beta-Adrenergic Steve Start: 08-26-2023 End: 08-25-2024 take 1 tablet by mouth once daily metoprolol succinate XL (Toprol XL) 25 mg 24 hr tablet Indications: History of PSVT (paroxysmal supraventricular tachycardia) , Palpitations , Primary hypertension Take 1 tablet (25 mg) by mouth once daily. Do not crush or chew. 30 tablet 11 08/26/2023 08/25/2024 Active MISC NATURAL PRODUCTS PO (20 sources) Start: 01-29-2023 MISC NATURAL PRODUCTS PO 2.5 mg Triest 01/29/2023 Active Multiple Vitamin (MULTI VITAMIN DAILY PO) (20 sources) Multiple Vitamin (MULTI VITAMIN DAILY PO) Multi Vitamin Active Multivitamin preparation (19 sources) Start: 10-17-2022 take 1 tablet by mouth once daily Multivitamin Active 1 TAB PO Daily October 16, 2022 11:00pm Start: 10-17-2022 take 1 tablet by janet once daily Multivitamin Active 1 TAB PO Daily October 17, 2022 12:00am multivitamin tablet (9 sources) take 1 tablet by janet th once daily multivitamin tablet Take 1 tablet by mouth once daily. Active take 1 tablet by mouth once tasha y multivitamin tablet Take 1 tablet by mouth once daily. 0 Active Multivitamin Tablet (1 source) Start: 10-17-2022 take 1 tablet by mouth once daily Multivitamin Tablet Active 1 TAB PO Daily October 16, 2022 11:00pm multivitamin with minerals (ONE-A-DAY MAXIMUM FORMULA) ORAL Tab (3 sources) Start: 11-05-2006 take 1 tablet by mouth once daily multivitamin with minerals (ONE-A-DAY MAXIMUM FORMULA) ORAL Tab Take one(1) tablet daily. 0 0 11/05/2006 Active Multivitamins (13 sources) take 1 tablet by mouth once tasha y Multivitamins 1 tablet Orally daily Active naloxone hydrochloride 40 mg/ml nasal spray (2 sources) Opioid Antagonist Start: 10-04-2020 naloxone 4 mg/actuation nasal spray (NARCAN) Use 1 spray in one nostril as needed for overdose. May repeat every 2 to 3 min in alternating nostrils until medical assistance is available 2 Each 10/04/2020 Active nitroglycerin 0.4 mg sublingual tablet (20 sources) Nitrate Vasodilator Start: 10-22-2022 End: 02-10-2025 nitroglycerin (Nitrostat) 0.[address] 1 tablet (0.4 mg) under the tongue every 5 minutes if needed. 10/22/2022 Active NON FORMULARY (2 sources) Start: 01-29-2023 NON FORMULARY 2.5 mg Triest daily 01/29/2023 Active pantoprazole 20 mg delayed release oral tablet (5 sources) Proton Pump Inhibitor Start: 01-31-2023 take 1 tablet by mouth every twenty-four hours Protonix 20 MG 1 tablet Orally Once a day for 35 days MED TO BED UPON DISCHARGE DOS: 02/11/2023 Jan, Active Prednisolon-Moxiflox -Bromfenac 1-0.5-0.075 % solution (17 sources) Start: 04-13-2024 Prednisolon-Moxiflo x-Bromfenac 1-0.5-0.075 % solution Indications: Cortical age-related cataract of both eyes Administer 1 drop into affected eye(s) in the morning and 1 drop at noon and 1 drop in the evening and 1 drop before bedtime. 10 mL 1 04/13/2024 Active Selenium (19 sources) Start: 10-17-2022 take 100 ug by mouth once daily Selenium Active 100 MCG PO Daily October 16, 2022 11:00pm Start: 10-17-2022 take 100 ug by mouth once tasha y Selenium Active 100 MCG PO Daily October 17, 2022 12:00am selenium (SELENOMAX ORAL) (9 sources) selenium (SELENO MAX ORAL) Take 100 [...] 1 capsule Orally Once a day Not-Taking Selenium 100 mcg tab (3 sources) Start: 05-16-2015 take 1 tablet by mouth once daily Selenium 100 mcg tab Take 1 tablet by mouth once daily. 0 05/16/2015 Active Selenium 100 mcg Tablet (1 source) Start: 10-17-2022 take 1 tablet by mouth once daily Selenium 100 mcg Tablet Active 100 MCG PO Daily October 16, 2022 11:00pm selenium 200 MCG tablet (20 sources) selenium 200 MCG tablet 1 (one) time each day at the same time. Active sertraline 25 mg oral tablet (20 sources) Serotonin Reuptake Inhibitor Start: 10-17-2022 take 1 tablet by mouth once daily sertraline (Zoloft) 25 mg tablet Take 1 tablet (25 mg) by mouth once daily. 07/24/2023 Active Sertraline HCl A ctive Triest (15 sources) Start: 01-29-2023 take 2.5 mg by mouth once daily in the evening Triest Active 2.5 MG PO Every evening January 28, 2023 11:00pm Start: 01-29-2023 take 2.5 mg by mouth once daily in the evening Triest Active 2.5 MG PO Every evening January 29, 2023 12:00am Vitamin D3 (13 sources) Vitamin D3 Activ e Completed/Discontinued Medications Medication Drug Class(es) Dates Sig (Normalized) Sig (Original) cefadroxil 500 mg oral capsule (7 sources) Cephalosporin Antibacterial Start: 02-01-20 take 1 capsule by mouth every twelve hours Cefadroxil 500 MG 1 tablet Orally every 12 hrs for 7 days MED TO BED UPON DISCHARGE DOS: 02/11/2023 Jan, Not-Taking docusate sodium 50 mg / sennosides, intermediate 8.6 mg oral tablet (7 sources) Start: 02-01-20 take 2 tablets by mouth every twenty-four hours Senokot S 8.6-50 MG 2 tablets Orally Once a day for 30 days MED TO BED UPON DISCHARGE DOS: 02/11/2023 Jan, Not-Taking ethinyl estradiol 0.0025 mg / norethindrone acetate 0.5 mg oral tablet (8 sources) Estrogen End: 02-24-20 norethindrone ac-eth estradioL (Femhrt Low Dose) 0.5-2.5 mg-mcg tablet Take 1 tablet by mouth once daily. 02/24/2024 Discontinued (Therapy completed) flecainide acetate 50 mg oral tablet (20 sources) Antiarrhythmic Start: 09-30-19 End: 06-29-19 take 1 tablet by mouth twice daily flecainide (Tambocor) 50 mg tablet Indications: Palpitations , History of PSVT (paroxysmal supraventricular tachycardia) , High risk medication use Take 1 tablet (50 mg) by mouth 2 times a day. 180 tablet 2 12/30/2023 06/29/2024 Discontinued (Reorder) hydroCHLOROthiazide 25 mg oral tablet (1 source) [...] empty stomach Orally Once a day Not-Taking magnesium oxide 400 mg oral capsule (9 sources) Start: 08-26-2023 End: 08-25-2024 take 1 capsule by mouth in the morning magnesium oxide 400 MG capsule Take 400 mg by mouth in the morning and 400 mg in the evening. 08/26/2023 02/11/2024 Discontinued (Therapy completed) morphine sulfate 15 mg extended release oral [...] DOS: 02/11/2023 Jan, Not-Taking polyethylene glycol 3350 34315 mg powder for oral solution (7 sources) [...] 1 dose Sucralfate (Carafate) 100 mg/mL suspension (19 sources) Start: 10-17-2022 End: 01-29-2023 take 1 [...] BED UPON DISCHARGE DOS: 02/11/2023 Jan, Not-Taking vitamin D3-vitamin K2 1,250-200 mcg capsule (8 sources) End: 02-24-2024 vitamin D3-vitamin K2 1,250-200 mcg capsule Vitamin D3 02/24/2024 Discontinued (Therapy completed) vitamin D3-vitam in K2 1,250-200 mcg capsule Vitamin D3 Active vitamin D3-vitam in K2 1,250-200 mcg capsule Vitamin D3 0 Active Problems Active Problems Problem Classification Problem Date Documented Date Episodic/Chronic Acquired foot deformities (6 sources) Other hammer toe(s) (acquired), left foot; Translations: [Hallux valgus (acquired), left foot] Onset: 08-09-2022 Chronic Acquired foot deformities (1 source) Bunionette of left foot; Translations: [BUNIONETTE OF LEFT FOOT] Onset: 09-13-2022 Episodic Anxiety disorders (20 sources) Anxiety; Translations: [Anxiety disorder, unspecified] Onset: 02-15-2020 10-22-2022 Chronic Cardiac dysrhythmias (20 sources) Supraventricular tachycardia; Translations: [Supraventricular tachycardia] Onset: 10-16-2023 08-26-2023 Chronic Cataract (1 source) Bilateral cortical age-related cataract eyes; Translations: [Cortical age-related cataract, bilateral] 04-13-2024 Chronic Conduction disorders (20 sources) Right bundle branch block; Translations: [Unspecified right bundle-branch block] Onset: 08-26-2023 08-26-2023 Chronic Coronary atherosclerosis and other heart disease (20 sources) Angina pectoris; Translations: [Angina pectoris, unspecified] Onset: 02-11-2024 02-05-2024 Chronic Disorders of lipid metabolism (20 sources) Mixed hyperlipidemia; Translations: [Mixed hyperlipidemia] Onset: 04-09-2018 10-22-2022 Chronic Esophageal disorders (20 sources) Gastroesophageal reflux disease; Translations: [Gastro-esophageal reflux disease without esophagitis] Onset: 12-16-2023 10-17-2022 Chronic Essential hypertension (20 sources) Essential (primary) hypertension; Translations: [Hypertensive disorder] Onset: 04-09-2018 08-26-2023 Chronic Malaise and fatigue (20 sources) Fatigue; Translations: [Chronic fatigue, unspecified] Onset: 10-22-2022 10-22-2022 Chronic Menopausal disorders (1 source) Hormone replacement therapy; Translations: [HORMONE REPLACEMENT THERAPY] Onset: 09-13-2022 Episodic Mood disorders (20 sources) Mild major depression, single episode; Translations: [Major depressive disorder, single episode, mild] Onset: 10-22-2022 Resolved: 10-23-2022 10-22-2022 Chronic Nutritional deficiencies (13 sources) Vitamin D deficiency; Translations: [Vitamin D deficiency, unspecified] Chronic Osteoporosis (14 sources) Primary osteoporosis; Translations: [Age-related osteoporosis without current pathological fracture] Chronic Other aftercare (8 sources) Patient encounter status; Translations: [Aftercare following joint replacement surgery] 02-20-2024 Chronic Other aftercare (11 sources) Aftercare following joint replacement surgery; Translations: [Aftercare following joint replacement] Onset: 04-02-2024 Chronic Other aftercare (20 sources) Taking high risk medication; Translations: [Other chcf (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] Onset: 09-30-2023 09-30-2023 Episodic Other aftercare (4 sources) Surgical follow-up; Translations: [Encounter for surgical aftercare following surgery on the sense organs] 05-20-2024 Episodic Other circulatory disease (20 sources) History of paroxysmal supraventricular tachycardia; Translations: [Personal history of other diseases of the circulatory system] Onset: 08-26-2023 Resolved: 10-16-2023 08-26-2023 Episodic Other connective tissue disease (1 [...] hip joint] Chronic Other connective tissue disease (7 sources) Presence of right artificial hip joint; Translations: [Presence of right artificial hip joint] Onset: 04-02-2024 Chronic Other connective tissue disease (5 sources) History of repair of hip joint; Translations: [Presence of unspecified artificial hip joint] 02-20-2024 Chronic Other connective tissue disease (7 sources) Presence of unspecified artificial hip joint; Translations: [Hip joint replacement] 02-24-2024 Chronic Other connective tissue disease (4 sources) History of total replacement of right hip joint; Translations: [Presence of right artificial hip joint] 04-07-2024 Chronic Other connective tissue disease (5 sources) Pain in left foot; Translations: [PAIN IN LEFT FOOT] Onset: 08-07-2022 Episodic Other connective tissue disease (7 sources) Trochanteric bursitis; Translations: [Trochanteric bursitis, right hip] 04-02-2024 Episodic Other connective tissue disease (7 sources) Iliotibial band friction syndrome of right knee; Translations: [Iliotibial band syndrome, right leg] 04-02-2024 Episodic Other connective tissue disease (3 sources) Trochanteric bursitis, right hip; Translations: [Enthesopathy of hip region] 04-02-2024 Episodic Other connective tissue disease (3 sources) Iliotibial band syndrome, right leg; Translations: [Other disorders of muscle, ligament, and fascia] 04-02-2024 Episodic Other non-traumatic joint disorders (3 sources) Pain in right hip Episodic Other nutritional; endocrine; and metabolic disorders (20 sources) Body mass index 30+ - obesity; Translations: [Body mass index (BMI) 32.0-32.9, adult] Onset: 09-30-2023 Resolved: 02-11-2024 08-26-2023 Chronic Other nutritional; endocrine; and metabolic disorders (13 sources) Obesity; Translations: [Obesity, unspecified] Chronic Other nutritional; endocrine; and metabolic disorders (13 sources) Obese class I; Translations: [Body mass index (BMI) 34.0-34.9, adult] Chronic Other nutritional; endocrine; and metabolic disorders (14 sources) Obese class II; Translations: [Body mass index (BMI) 35.0-35.9, adult] Onset: 10-03-2020 10-04-2020 Chronic Other nutritional; endocrine; and metabolic disorders (2 sources) Body mass index (BMI) 35.0-35.9, adult; Translations: [Body Mass Index 35.0-35.9, adult] Onset: 04-20-2021 Resolved: 04-20-2021 Chronic Other nutritional; endocrine; and metabolic disorders (20 sources) Severe obesity; Translations: [Morbid (severe) obesity due to excess calories] Onset: 04-09-2018 01-07-2023 Chronic Other nutritional; endocrine; and metabolic disorders (2 sources) Body mass index (BMI) 36.0-36.9, adult; Translations: [Body mass index (BMI) 36.0-36.9, adult] Onset: 06-29-2024 Chronic Other nutritional; endocrine; and metabolic disorders (2 sources) Body mass index (BMI) 34.0-34.9, adult; Translations: [Body mass index (BMI) 34.0-34.9, adult] Onset: 12-30-2023 Chronic Other nutritional; endocrine; and metabolic disorders (2 sources) Body mass index (BMI) 37.0-37.9, adult; Translations: [Body mass index (BMI) 37.0-37.9, adult] Onset: 09-30-2023 Chronic Other upper respiratory disease (20 sources) Pain in throat; Translations: [Pain in throat] Onset: 12-16-2023 10-17-2022 Episodic Residual codes; unclassified (20 sources) Obstructive sleep apnea syndrome; Translations: [Obstructive sleep apnea (adult) (pediatric)] Onset: 11-11-2018 08-26-2023 Chronic Residual codes; unclassified (4 sources) Obstructive sleep apnea (adult) (pediatric); Translations: [OBSTRUCTIVE SLEEP APNEA] Onset: 04-20-2021 Resolved: 04-20-2021 Chronic Residual codes; unclassified (20 sources) Sleep apnea; Translations: [Sleep apnea, unspecified] Onset: 11-11-2018 08-26-2023 Chronic Residual codes; unclassified (3 sources) Sleep apnea, unspecified; Translations: [Obstructive sleep apnea (adult)(pediatric)] Onset: 12-30-2023 08-26-2023 Chronic Residual codes; unclassified (20 sources) Hypersomnia; Translations: [Hypersomnia, unspecified] Onset: 02-11-2024 08-26-2023 Chronic Residual codes; unclassified (1 source) Acquired absence of both cervix and uterus; Translations: [ACQUIRED ABSENCE BOTH CERVIX AND UTERUS] Onset: 09-13-2022 Episodic Residual codes; unclassified (1 source) Acquired absence of other specified parts of digestive tract; Translations: [ACQ ABSENCE OTH PART DIGESTV TRACT] Onset: 09-13-2022 Episodic Residual codes; unclassified (20 sources) Never smoked tobacco; Translations: [Other specified health status] Onset: 09-30-2023 Resolved: 10-16-2023 09-30-2023 Episodic Residual codes; unclassified (2 sources) Pain; Translations: [Pain, unspecified] 07-12-2020 Episodic Residual codes; unclassified (1 source) Preoperative state 07-03-2024 Episodic Spondylosis; intervertebral disc disorders; other back problems (4 sources) Lumbar radiculopathy; Translations: [Radiculopathy, lumbar region] 04-07-2024 Episodic Thyroid disorders (20 sources) Bradley thyroiditis; Translations: [Autoimmune thyroiditis] Onset: 10-02-2018 Resolved: 10-16-2023 08-26-2023 Chronic Past or Other Problems Problem Classification Problem Date Documented Date Episodic/Chronic Cardiac dysrhythmias (20 sources) Palpitations; Translations: [Palpitations] Onset: 08-26-2023 Resolved: 10-16-2023 08-26-2023 Episodic Diabetes mellitus without complication (20 sources) Impaired fasting glycemia; Translations: [Impaired fasting glucose] Onset: 10-22-2022 10-22-2022 Episodic Disorders of teeth and jaw (20 sources) Jaw pain; Translations: [Jaw pain] Onset: 10-23-2022 Resolved: 01-07-2023 01-07-2023 Episodic Immunizations and screening for infectious disease (1 source) Encounter for immunization; Translations: [Encounter for immunization Z23] Onset: 03-07-2021 Resolved: 03-07-2021 Episodic Nonspecific chest pain (3 sources) Chest pain; Translations: [Chest pain, unspecified] Onset: 02-05-2024 02-11-2024 Episodic Osteoarthritis (20 sources) Osteoarthritis of right hip joint; Translations: [Unilateral primary osteoarthritis, right hip] Onset: 07-27-2009 Resolved: 10-16-2023 Chronic Other aftercare (6 sources) Other oysterman (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; Translations: [OTH PRISON CURRENT DRUG THERAPY] Onset: 09-13-2022 Episodic Other aftercare (20 sources) Treatment changed; Translations: [Other chcf (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] Onset: 09-30-2023 Resolved: 10-16-2023 09-30-2023 Episodic Other circulatory disease (4 sources) Personal history of other diseases of the circulatory system; Translations: [Personal history of other diseases of the circulatory system] Onset: 08-26-2023 Episodic Other connective tissue disease (20 sources) History of total knee arthroplasty; Translations: [Presence of right artificial knee joint] Onset: 01-20-2019 Resolved: 01-07-2023 10-25-2020 Chronic Other connective tissue disease (20 sources) Artificial knee joint present; Translations: [Presence of unspecified artificial knee joint] Onset: 10-26-2020 Resolved: 01-07-2023 01-07-2023 Chronic Other connective tissue disease (20 sources) Inflammation of rotator cuff tendon; Translations: [Other shoulder lesions, unspecified shoulder] Onset: 05-10-2015 Resolved: 01-07-2023 05-18-2015 Episodic Other connective tissue disease (20 sources) Impingement syndrome of right shoulder region; Translations: [Impingement syndrome of right shoulder] Onset: 05-10-2015 Resolved: 01-07-2023 05-18-2015 Episodic Other connective tissue disease (20 sources) Tenosynovitis of right radial styloid; Translations: [Radial styloid tenosynovitis [de Quervain]] Onset: 01-20-2016 Resolved: 01-07-2023 01-20-2016 Episodic Other connective tissue disease (3 sources) Impingement syndrome of shoulder region; Translations: [Impingement syndrome of unspecified shoulder] Onset: 05-18-2015 Resolved: 09-13-2015 09-13-2015 Episodic Other connective tissue disease (3 sources) Pain in right hand; Translations: [Pain in right hand] Onset: 09-27-2015 Resolved: 12-08-2018 12-08-2018 Episodic Other connective tissue disease (20 sources) Dupuytren's contracture; Translations: [Palmar fascial fibromatosis [Dupuytren]] Onset: 02-15-2020 Resolved: 01-07-2023 01-07-2023 Episodic Other lower respiratory disease (4 sources) Dyspnea; Translations: [Shortness of breath] Onset: 02-24-2024 02-24-2024 Episodic Other lower respiratory disease (1 source) Shortness of breath; Translations: [Shortness of breath] Onset: 02-24-2024 Episodic Other non-traumatic joint disorders (20 sources) Loose body in left elbow joint; Translations: [Loose body in left elbow] Onset: 01-01-2020 Resolved: 01-07-2023 01-07-2023 Chronic Other non-traumatic joint disorders (3 sources) Hip pain; Translations: [Pain in unspecified hip] Onset: 07-27-2009 Resolved: 05-18-2015 05-18-2015 Episodic Other screening for suspected conditions (not mental disorders or infectious disease) (20 sources) Electrocardiogram abnormal; Translations: [Abnormal electrocardiogram [ECG] [EKG]] Onset: 05-29-2016 Resolved: 10-23-2022 08-26-2023 Episodic Residual codes; unclassified (20 sources) History of abdominal hysterectomy; Translations: [Acquired absence of both cervix and uterus] Onset: 10-15-2018 10-22-2022 Episodic Residual codes; unclassified (20 sources) Acquired absence of cervix and uterus; Translations: [Acquired absence of both cervix and uterus] Onset: 10-22-2022 10-22-2022 Episodic Residual codes; unclassified (20 sources) Ovary absent; Translations: [Acquired absence of ovaries, unilateral] Onset: 10-22-2022 10-22-2022 Episodic Residual codes; unclassified (20 sources) Acquired absence of ovary; Translations: [Acquired absence of ovaries, unilateral] Onset: 10-15-2018 10-22-2022 Episodic Residual codes; unclassified (2 sources) Other specified health status; Translations: [Other specified health status] Onset: 09-30-2023 Episodic Spondylosis; intervertebral disc disorders; other back problems (20 sources) Arthritis of spine; Translations: [Spondylosis without myelopathy or radiculopathy, lumbosacral region] Onset: 10-22-2022 Resolved: 01-07-2023 01-07-2023 Chronic Sprains and strains (20 sources) Unspecified sprain of right shoulder joint, initial encounter; Translations: [Sprains and strains of unspecified site of shoulder and upper arm] Onset: 10-09-2016 Resolved: 01-07-2023 10-09-2016 Episodic Syncope (20 sources) Near syncope; Translations: [Syncope and collapse] Onset: 08-26-2023 Resolved: 10-16-2023 08-26-2023 Episodic Unclassified (9 sources) Onset: 08-26-2023 Resolved: 06-29-2024 08-26-2023 Results Test Name Value Interpretation Reference Range Facility ECG 12 [place] 07-03-2024 Normal sinus rhythm 79 bpm right bundle branch block compared to the EKG from 02/24/2024, right bundle branch block is new, and OK interval has increased from 170 ms to 188 ms. QTc is 456 ms. [facility] Work Phone: Basic Metabolic Panelon Anion gap [Moles/Vol] 8.8 mmol/L Normal 6.0-15.0 [facility] Comment on above: Order Comment: [email or web address] Performed By: #### B MP #### [address] Calcium [Mass/Vol] 9.3 mg/dL Normal 8.6-10.3 [facility] Comment on above: Order Comment: [email or web address] Result Comment: PERF ORMED BY: [place] [address] PATHOLOGIST CABLE ARMORER ROSELIA RAMIREZ M.D. Performed By: #### B MP #### [address] Chloride [Moles/Vol] 101 mmol/L Normal 98-107 [facility] Comment on above: Order Comment: [email or web address] Performed By: #### B MP #### [address] CO2 [Moles/Vol] 32.5 mmol/L High 21.0-31.0 [facility] Comment on above: Order Comment: [email or web address] Performed By: #### B MP #### [address] Creatinine [Mass/Vol] 0.81 mg/dL Normal 0.60-1.20 [facility] Comment on above: Order Comment: [email or web address] Performed By: #### B MP #### [place] [address] [place] GFR/1.73 sq M.predicted MDRD (S/P/Bld) [Vol rate/Area] mL/min/{1.73_m2} Normal [facility] Comment on above: Order Comment: [email or web address] Performed By: #### B MP #### [address] Glucose [Mass/Vol] 91 mg/dL Normal 70-100 [facility] Comment on above: Order Comment: [email or web address] Result Comment: [place] Glucose Reference Range is dependent on time and content of last meal. Glucose of more than 200 mg/dL in a nonstressed, ambulatory subject supports the diagnosis of Diabetes Mellitus. ADA recommended reference range Performed By: #### B MP #### [facility] [address] Potassium [Moles/Vol] 4.3 mmol/L Normal 3.5-5.1 [facility] Comment on above: Order Comment: [email or web address] Performed By: #### B MP #### [facility] [address] [place] [address] [place] Sodium [Moles/Vol] 138 mmol/L Normal 136-145 [facility] Comment on above: Order Comment: [email or web address] Performed By: #### B MP #### [facility] [address] [place] [address] [place] Urea nitrogen [Mass/Vol] 20 mg/dL Normal 7-25 [facility] Comment on above: Order Comment: [email or web address] Performed By: #### B MP #### [facility] [address] Calcium [Mass/volume] in Ser um or PlasmaOrdered By: Mary Alice Tatum on 06-05-2024 Calcium [Mass/Vol] Calcium [Mass/volume ] in Serum or Plasma 8.6-10.3 [facility] Carbon dioxide, total [Moles /volume] in Serum or PlasmaOrdered By: Mary Alice Tatum on 06-05-2024 CO2 [Moles/Vol] Carbon dioxide, tota l [Moles/volume] in Serum or Plasma High 21.0-31.0 [facility] Chloride [Moles/volume] in S rubia or PlasmaOrdered By: Mary Alice Tatum on 06-05-2024 Chloride [Moles/Vol] Chloride [Moles/vol ume] in Serum or Plasma 98-107 [facility] Creatinine [Mass/volume] in Serum or PlasmaOrdered By: Mary Alice Tatum on 06-05-2024 Creatinine [Mass/Vol] Creatinine [Mass/v olume] in Serum or Plasma 0.60-1.20 [facility] Glucose [Mass/volume] in Ser um or PlasmaOrdered By: Mary Alice Tatum on 06-05-2024 Glucose [Mass/Vol] Glucose [Mass/volume ] in Serum or Plasma 70-100 [facility] Comment on above: ADA recommended refe rence rangeRandom Glucose Reference Range is dependent on time and content of last meal. Glucose of more than 200 mg/dL in a nonstressed, ambulatory subject supports the diagnosis of Diabetes Mellitus. No Panel InformationOrdered By: Mary Alice Tatum on 06-05-2024 Estimated GFR (CKD-EPI) > 60.0 mL/Min [facility] Creatinine Clearance (Chem N/A [facility] Potassium [Moles/volume] in Serum or PlasmaOrdered By: Mary Alice Tatum on 06-05-2024 Potassium [Moles/Vol] Potassium [Moles/v olume] in Serum or Plasma 3.5-5.1 [facility] Serum or plasma anion gap de terminationOrdered By: Mary Alice Tatum on 06-05-2024 Anion gap [Moles/Vol] Serum or plasma an ion gap determination 6.0-15.0 [facility] Sodium [Moles/volume] in Ser um or PlasmaOrdered By: Mary Alice Tatum on 06-05-2024 Sodium [Moles/Vol] Sodium [Moles/volume ] in Serum or Plasma 136-145 [facility] Urea nitrogen [Mass/volume] in Serum or PlasmaOrdered By: Mary Ailce Tatum on 06-05-2024 Urea nitrogen [Mass/Vol] Urea nitrogen [Mass/volume] in Serum or Plasma 7-25 [facility] MM screening mammo BI w/CADo n 05-21-2024 MM screening mammo BI w/[place] [address] Mammography Report Signed Patient: Julia Villeda MR#: [id number] : 1950 Acct:[id number] Age/Sex: 74 / F ADM Date: 05/21/24 Loc: [place] Room: Type: [facility] CLI Attending Dr: Frank Guzman DO Copies to: Nancy Jha, DO Frank Guzman DO Ordering Provider: Frank Guzman DO Date of Service: 05/21/24 MM/MM screening mammo BI w/CAD: SCREENING CLINICAL DATA: Screening for malignancy. SCREENING MAMMOGRAM - FULL FIELD DIGITAL WITH TOMOSYNTHESIS AND CAD COMPARISON:Mammograms dating back to 2019 Tomosynthesis craniocaudal and mediolateral oblique views of both breasts were obtained using low- dose digital technique. This examination was reviewed with the aid of CAD. FINDINGS: The breast tissue is composed of scattered fibroglandular densities. There are no dominant masses, typically malignant calcifications or architectural distortion. There has been no significant interval change. MM/MM screening mammo BI w/CAD IMPRESSION: NO MAMMOGRAPHIC EVIDENCE OF MALIGNANCY. ROUTINE FOLLOW-UP IS RECOMMENDED IN ONE YEAR. RESULT CODE: 1 Negative DENSITY CODE: 2 (approximately 25-50% glandular) FOLLOW UP: 1YR The false-negative rate of mammography is approximately 10-percent. Management of a palpable abnormality must be based on clinical grounds. Patient was entered into a reminder system with a target due date for the next mammogram. Impression dictated by: Cj Mercado Jr., D.OBest05/21/2024 10:07 AM Dictation Location: [facility] Transcribed By: [facility] 05/21/24 1007 Dictated By: Cj Mercado Jr, DO 05/21/24 1007 Signed By: 05/21/24 1007 Normal [facility] US Eye+Orbit - bilateralon 1 06-13-2023 A LENGTH (OD) 22.56 [facility] A LENGTH (OS) 22.86 [facility] Right Eye Axial length was 22.56. Left Eye Axial length was 22.86. [facility] Radiology Study observation (narrative) [facility] XR hip RT min 2V(w/wo pelvis )*on 04-02-2024 XR hip RT min 2V(w/wo pelvis)* [facility] [address] [place] [address] XRay Report Signed Patient: Julia Villeda MR#: [id number] : 1950 Acct:[id number] Age/Sex: 74 / F ADM Date: 04/02/24 [place] [facility]: Type: [facility] CLI Attending Dr: Herman Chang II, MD Copies to: Herman Chang MD Ordering Provider: Herman Chang MD Date of Service: 04/02/24 XR/XR hip RT min 2V(w/wo pelvis)*: Z47.1 - Aftercare following joint replacement surgery 2 views RIGHT hip with single view pelvis plain film COMPARISON: 02/24/24 HISTORY: RIGHT hip injury. ACUTE FINDINGS: None DEGENERATIVE CHANGE: Mild SOFT TISSUE FINDINGS: Unremarkable JOINT EFFUSION: None POSTOP CHANGES: Uncomplicated stable RIGHT hip arthroplasty BONY MINERALIZATION: Adequate XR/XR hip RT min 2V(w/wo pelvis)* IMPRESSION: No acute findings Impression dictated by: Guille Vasquez M.D.04/02/2024 3:49 PM Dictation Location: [place] [address] Transcribed By: [facility] 04/02/24 1549 Dictated By: Guille Vasquez DO 04/02/24 1548 Signed By: 04/02/24 1549 Normal [facility] ECG 12 [place] 02-24-2024 Normal sinus rhythm at 62 bpm OK interval 170 ms QRS duration 100 ms QTc 422 ms [facility] Work Phone: XR hip RT min 2V(w/wo pelvis )*on 02-24-2024 XR hip RT min 2V(w/wo pelvis)* [facility] [address] [place] [address] XRay Report Signed Patient: Julia Villeda MR#: [id number] : 1950 Acct:[id number] Age/Sex: 73 / F ADM Date: 02/24/24 [place] [facility] [place]: Type: [facility] Attending Dr: Herman Chang II, MD Copies to: Herman Chang MD Ordering Provider: Herman Chang MD Date of Service: 02/24/24 XR/XR hip RT min 2V(w/wo pelvis)*: Z96.649 - Presence of unspecified artificial hip joint RIGHT HIP - 2 views: CLINICAL HISTORY: Follow-up right RADHA COMPARISON: Right hip 05/09/2023 FINDINGS: Right RADHA without radiographic complication. No acute bony process. Mild degenerative changes of the left hip. Additional degenerative changes seen involving the visualized lower lumbar spine and SI joints. XR/XR hip RT min 2V(w/wo pelvis)* IMPRESSION: RIGHT RADHA WITHOUT RADIOGRAPHIC COMPLICATION.. Impression dictated by: Cj Mercado Jr., D.OBest02/24/2024 2:32 PM Dictation Location: [place] [address] Transcribed By: [facility] 02/24/24 1432 Dictated By: Cj Mercado Jr, DO 02/24/24 1431 Signed By: 02/24/24 143 Normal [facility] Activated partial thrombopla stin time (aPTT) in platelet poor plasma by coagulation aOrdered By: Mikey Gallegos on 02-05-2024 aPTT Coag (PPP) [Time] 39.4 s High 25.1-36.5 [facility] Comment on above: A hematocrit value g reater than 55% may lead to inaccurate results in coagulation testing. Patients having hematocrit values >55% require a special collection tube for coagulation studies. Please contact the laboratory at [phone] for redraw instructions. Automated basophil %Ordered By: Mikey Gallegos on 02-05-2024 Basophils/100 WBC (Bld) 0.6 % Normal . [facility] Comment on above: Performed By: #### C BC, CK, HS TROP, BNP, BMP, PTT, PT #### [facility] [address] [place] [address] Automated basophil countOrde red By: Mikey Gallegos on 02-05-2024 Basophils (Bld) [#/Vol] 0.0 10*3/uL Normal 0.0-0.2 [facility] Comment on above: Result Comment: PERF ORMED BY: [place] [address] PATHOLOGIST CABLE ARMORER JAKE SAN M.D. Performed By: #### C BC, CK, HS TROP, BNP, BMP, PTT, PT #### [facility] [address] [place] [address] Automated blood monocyte cou ntOrdered By: Mikey Gallegos on 02-05-2024 Monocytes (Bld) [#/Vol] 0.6 10*3/uL Normal 0.0-0.8 [facility] Comment on above: Performed By: #### C BC, CK, HS TROP, BNP, BMP, PTT, PT #### [facility] [address] [place] [address] Automated eosinophil %Ordere d By: Mikey Gallegos on 02-05-2024 Eosinophils/100 WBC (Bld) 1.4 % Normal . [facility] Comment on above: Performed By: #### C BC, CK, HS TROP, BNP, BMP, PTT, PT #### [address] Automated eosinophil countOr dered By: Mikey Gallegos on 02-05-2024 Eosinophils (Bld) [#/Vol] 0.1 10*3/uL Normal 0.0-0.45 [facility] Comment on above: Performed By: #### C BC, CK, HS TROP, BNP, BMP, PTT, PT #### [address] Automated monocyte %Ordered By: Mikey Gallegos on 02-05-2024 Monocytes/100 WBC (Bld) 7.7 % Normal . [facility] Comment on above: Performed By: #### C BC, CK, HS TROP, BNP, BMP, PTT, PT #### [address] Automated neutrophil %Ordere d By: Mikey Gallegos on 02-05-2024 Neutrophils/100 WBC (Bld) 65.7 % Normal . [facility] Comment on above: Performed By: #### C BC, CK, HS TROP, BNP, BMP, PTT, PT #### [address] BNP ser/plasOrdered By: Medardo Gallegos on 02-05-2024 Natriuretic peptide B (Bld) [Mass/Vol] 36.0 pg/mL Normal 5-100 [facility] Comment on above: Result Comment: PERF ORMED BY: [place] [address] PATHOLOGIST CABLE ARMORER JAKE SAN M.D. Performed By: #### C BC, CK, HS TROP, BNP, BMP, PTT, PT #### [address] Basic Metabolic Panelon Creatinine Clr Calc Pharmacy 78.28 Normal [facility] Comment on above: Result Comment: PERF ORMED BY: [place] [address] PATHOLOGIST CABLE ARMORER JAKE SAN M.D. Performed By: #### C BC, CK, HS TROP, BNP, BMP, PTT, PT #### [address] GFR/1.73 sq M.predicted MDRD (S/P/Bld) [Vol rate/Area] mL/min/{1.73_m2} Normal [facility] Comment on above: Performed By: #### C BC, CK, HS TROP, BNP, BMP, PTT, PT #### [address] Calcium [Mass/volume] in Ser um or PlasmaOrdered By: Mikey Gallegos on 02-05-2024 Calcium [Mass/Vol] 9.9 mg/dL Normal 8.6-10.3 [facility] Comment on above: Performed By: #### C BC, CK, HS TROP, BNP, BMP, PTT, PT #### [address] Carbon dioxide, total [Moles /volume] in Serum or PlasmaOrdered By: Mikey Gallegos on 02-05-2024 CO2 [Moles/Vol] 29.3 mmol/L Normal 21.0-31.0 [facility] Comment on above: Performed By: #### C BC, CK, HS TROP, BNP, BMP, PTT, PT #### [place] [address] [place] Chloride [Moles/volume] in S rubia or PlasmaOrdered By: Mikey Gallegos on 02-05-2024 Chloride [Moles/Vol] 100 mmol/L Normal 98-107 [facility] Comment on above: Performed By: #### C BC, CK, HS TROP, BNP, BMP, PTT, PT #### [address] Complete Blood Count Auto Di ffon 02-05-2024 Mean Corpuscular HGB Conc 33.3 g/dL Normal 32.0-35.0 [facility] Comment on above: Performed By: #### C BC, CK, HS TROP, BNP, BMP, PTT, PT #### [address] Monocytes/100 WBC (Bld) 19.82 % Normal 0.00-20.00 [facility] Comment on above: Performed By: #### C BC, CK, HS TROP, BNP, BMP, PTT, PT #### [address] NRBC% 0.2 /100{WBC} Normal 0-0.5 [facility] Comment on above: Performed By: #### C BC, CK, HS TROP, BNP, BMP, PTT, PT #### [address] Creatine kinase [Enzymatic a ctivity/volume] in Serum or PlasmaOrdered By: Mikey Gallegos on 02-05-2024 CK [Catalytic activity/Vol] 50 U/L Normal 30-223 [facility] Comment on above: Performed By: #### C BC, CK, HS TROP, BNP, BMP, PTT, PT #### [address] Creatinine [Mass/volume] in Serum or PlasmaOrdered By: Mikey Gallegos on 02-05-2024 Creatinine [Mass/Vol] 0.77 mg/dL Normal 0.60-1.20 [facility] Comment on above: Performed By: #### C BC, CK, HS TROP, BNP, BMP, PTT, PT #### [address] ECG 12 lead ECGon 02-05-2024 ECG 12 lead ECG [facility] Main [place] [address] [place] [address] Electrocardiograph Report Signed Patient: Julia Villeda MR#: [id number] : 1950 Acct:[id number] Age/Sex: 73 / F ADM Date: 02/05/24 Loc: ER Room: Type: [facility] ER Attending Dr: Ordering Provider: Mikey Gallegos MD Date of Service: 02/05/2409/24/1905 ECG/ECG 12 lead ECG: Chest Pain Copies to: Test Reason : Blood Pressure : */* mmHG Vent. Rate : 66 BPM Atrial Rate : 66 BPM P-R Int : 168 ms QRS Dur : 100 ms QT Int : 412 ms P-R-T Axes : 55 69 47 degrees QTcB Int : 431 ms Normal sinus rhythm Normal ECG When compared with ECG of 17-Oct-2022 15:09, Right bundle branch block is no longer present Confirmed by MIKEY GALLEGOS MD ([id number]) on 02/06/2024 1:41:41 AM Referred By: Electronically Signed By: MIKEY GALLEGOS MD Transcribed By: MUS Signed By Mikey Gallegos MD 10/24 0141 Normal [facility] Erythrocyte distribution wid th [Ratio] by Automated countOrdered By: Mikey Gallegos on 02-05-2024 Erythrocyte distribution width (RBC) [Ratio] 14.5 % Normal 11.9-15.3 [facility] Comment on above: Performed By: #### C BC, CK, HS TROP, BNP, BMP, PTT, PT #### [facility] [address] [place] [address] [place] Erythrocytes [#/volume] in B lood by Automated countOrdered By: Mikey Gallegos on 02-05-2024 RBC (Bld) [#/Vol] 4.51 10*6/uL Normal 3.60-5.00 [facility] Comment on above: Performed By: #### C BC, CK, HS TROP, BNP, BMP, PTT, PT #### [facility] [address] [place] [address] [place] Glucose [Mass/volume] in Ser um or PlasmaOrdered By: Mikey Gallegos on 02-05-2024 Glucose [Mass/Vol] 95 mg/dL Normal 70-100 [facility] Comment on above: ADA recommended refe rence rangeRandom Glucose Reference Range is dependent on time and content of last meal. Glucose of more than 200 mg/dL in a nonstressed, ambulatory subject supports the diagnosis of Diabetes Mellitus. Result Comment: [place] om Glucose Reference Range is dependent on time and content of last meal. Glucose of more than 200 mg/dL in a nonstressed, ambulatory subject supports the diagnosis of Diabetes Mellitus. ADA recommended reference range Performed By: #### C BC, CK, HS TROP, BNP, BMP, PTT, PT #### [address] Hematocrit [Volume Fraction] of Blood by Automated countOrdered By: Mikey Gallegos on 02-05-2024 Hematocrit (Bld) [Volume fraction] 38.6 % Normal 34.0-46.4 [facility] Comment on above: Performed By: #### C BC, CK, HS TROP, BNP, BMP, PTT, PT #### [address] Hemoglobin [Mass/volume] in BloodOrdered By: Mikey Gallegos on 02-05-2024 Hemoglobin (Bld) [Mass/Vol] 12.8 g/dL Normal 11.8-15.4 [facility] Comment on above: Performed By: #### C BC, CK, HS TROP, BNP, BMP, PTT, PT #### [address] INR in Platelet poor plasma by Coagulation assayOrdered By: Mikey Gallegos on 02-05-2024 INR Coag (PPP) [Relative time] 1.0 {INR} Normal [facility] Comment on above: INR Therapeutic Rang e A) Pre- and Peroperative OAT started two weeks before surgery. NOT HIP SURGERY: 1.5 - 2.5 HIP SURGERY: 2 - 3B) Primary and secondary prevention of venous THROMBOSIS: 2 - 3C) Active venous thrombosis, pulmonary embolismand prevention of recurrent venous thrombosis: 2 - 3D) Prevention of arterial thromboembolismincluding patients with mechanical heart valves: 3 - 4.5 Result Comment: INR Therapeutic Range A) Pre- [...] valves: 3 - 4.5 Performed By: #### C BC, CK, HS TROP, BNP, BMP, PTT, PT ####[facility] [address] Leukocytes [#/volume] correc arnoldo for nucleated erythrocytes in Blood by Automated counOrdered By: Mikey Gallegos on 02-05-2024 WBC corrected for nucl RBC Auto (Bld) [#/Vol] 7.2 10*3/uL 3.8-11.6 [facility] Leukocytes [#/volume] in Blo od by Automated countOrdered By: Mikey Gallegos on 02-05-2024 WBC (Bld) [#/Vol] 7.2 10*3/uL Normal 3.8-11.6 [facility] Comment on above: Performed By: #### C BC, CK, HS TROP, BNP, BMP, PTT, PT #### [facility] [address] [place] [address] [place] Lymphocytes [#/volume] in Bl ood by Automated countOrdered By: Mikey Gallegos on 02-05-2024 Lymphocytes (Bld) [#/Vol] 1.8 10*3/uL Normal 1.00-4.8 [facility] Comment on above: Performed By: #### C BC, CK, HS TROP, BNP, BMP, PTT, PT #### [facility] [address] [place] [address] [place] Lymphocytes/100 leukocytes i n Blood by Automated countOrdered By: Mikey Gallegos on 02-05-2024 Lymphocytes/100 WBC (Bld) 24.6 % Normal . [facility] Comment on above: Performed By: #### C BC, CK, HS TROP, BNP, BMP, PTT, PT #### [facility] [address] [place] [address] [place] MCH [Entitic mass] by Automa arnoldo countOrdered By: Mikey Gallegos on 02-05-2024 MCH (RBC) [Entitic mass] 28.4 pg Normal 24.7-34.3 [facility] Comment on above: Performed By: #### C BC, CK, HS TROP, BNP, BMP, PTT, PT #### [facility] [address] MCHC Auto (RBC) [Mass/Vol]Or dered By: Mikey Gallegos on 02-05-2024 MCHC (RBC) [Mass/Vol] 33.3 g/dL 32.0-35.0 [facility] MCV [Entitic volume] by Auto mated countOrdered By: Mikey Gallegos on 02-05-2024 MCV (RBC) [Entitic vol] 85.5 fL Normal 80-100 [facility] Comment on above: Performed By: #### C BC, CK, HS TROP, BNP, BMP, PTT, PT #### [facility] [address] [place] [address] Monocyte distribution width [Entitic volume] in Blood by AutomatedOrdered By: Mikey Gallegos on 02-05-2024 Monocyte distribution width Auto (Bld) [Entitic vol] 19.82 % 0.00-20.00 [facility] Neutrophils [#/volume] in Bl ood by Automated countOrdered By: Mikey Gallegos on 02-05-2024 Neutrophils (Bld) [#/Vol] 4.8 10*3/uL Normal 1.8-7.7 [facility] Comment on above: Performed By: #### C BC, CK, HS TROP, BNP, BMP, PTT, PT #### [facility] [address] [place] [address] No Panel InformationOrdered By: Mikey Gallegos on 02-05-2024 Estimated GFR (CKD-EPI) > 60.0 mL/Min [facility] Creatinine Clearance (Chem 78.28 [facility] Nucleated erythrocytes [Pres ence] in Blood by Automated countOrdered By: Mikey Gallegos on 02-05-2024 Nucleated RBC Auto Ql (Bld) 0.2 /100{WBC} 0-0.5 [facility] Partial Thromboplastin Timeo n 02-05-2024 aPTT Coag (Bld) [Time] 39.4 s High 25.1-36.5 [facility] Comment on above: Result Comment: A he matocrit value greater than 55% may lead to inaccurate results in coagulation testing. Patients having hematocrit values >55% require a special collection tube for coagulation studies. Please contact the laboratory at [phone] for redraw instructions. PERFORMED BY: [place] [address] PATHOLOGIST CABLE ARMORER JAKE SAN M.D. Performed By: #### C BC, CK, HS TROP, BNP, BMP, PTT, PT ####[facility] [address] [place] [address] Platelet mean volume [Entiti c volume] in Blood by Automated countOrdered By: Mikey Gallegos on 02-05-2024 Platelet mean volume (Bld) [Entitic vol] 8.4 fL Normal 6.3-10.7 [facility] Comment on above: Performed By: #### C BC, CK, HS TROP, BNP, BMP, PTT, PT #### [facility] [address] [place] [address] Platelets [#/volume] in Bloo d by Automated countOrdered By: Mikey Gallegos on 02-05-2024 Platelets (Bld) [#/Vol] 302 10*3/uL Normal 150-450 [facility] Comment on above: Performed By: #### C BC, CK, HS TROP, BNP, BMP, PTT, PT #### [facility] [address] [place] [address] Potassium [Moles/volume] in Serum or PlasmaOrdered By: Mikey Gallegos on 02-05-2024 Potassium [Moles/Vol] 3.8 mmol/L Normal 3.5-5.1 [facility] Comment on above: Performed By: #### C BC, CK, HS TROP, BNP, BMP, PTT, PT #### [address] Prothrombin time (PT)Ordered By: Mikey Gallegos on 02-05-2024 PT Coag (PPP) [Time] 12.1 s Normal 9.0-12.9 [facility] Comment on above: A hematocrit value g reater than 55% may lead to inaccurate results in coagulation testing. Patients having hematocrit values >55% require a special collection tube for coagulation studies. Please contact the laboratory at [phone] for redraw instructions. Result Comment: A he matocrit value greater than 55% may lead to inaccurate results in coagulation testing. Patients having hematocrit values >55% require a special collection tube for coagulation studies. Please contact the laboratory at [phone] for redraw instructions. Performed By: #### C BC, CK, HS TROP, BNP, BMP, PTT, PT ####[facility] Serum or plasma anion gap de terminationOrdered By: Mikey Gallegos on 02-05-2024 Anion gap [Moles/Vol] 10.5 mmol/L Normal 6.0-15.0 [facility] Comment on above: Performed By: #### C BC, CK, HS TROP, BNP, BMP, PTT, PT #### [facility] [address] Sodium [Moles/volume] in Ser um or PlasmaOrdered By: Mikey Gallegos on 02-05-2024 Sodium [Moles/Vol] 136 mmol/L Normal 136-145 [facility] Comment on above: Performed By: #### C BC, CK, HS TROP, BNP, BMP, PTT, PT #### [facility] [address] Troponin I High Sensitivityo n 02-05-2024 Troponin I High Sensitivity 3.5 pg/mL Normal 0.0-15.0 [facility] Comment on above: Result Comment: PERF ORMED BY: [place] [address] PATHOLOGIST CABLE ARMORER JAKE SAN M.D. Performed By: #### H S TROP #### [address] Troponin I High Sensitivity 3.7 pg/mL Normal 0.0-15.0 [facility] Comment on above: Result Comment: PERF ORMED BY: [facility] [address] [place] [address] PATHOLOGIST CABLE ARMORER JAKE SAN M.D. Performed By: #### C BC, CK, HS TROP, BNP, BMP, PTT, PT ####[facility] [address] Troponin I.cardiac [Mass/vol ume] in Serum or Plasma by Detection limit <= 0.01 ng/Ordered By: Mikey Gallegos on 02-05-2024 Troponin I.cardiac DL <= 0.01 ng/mL [Mass/Vol] 3.5 pg/mL 0.0-15.0 [facility] Urea nitrogen [Mass/volume] in Serum or PlasmaOrdered By: Mikey Gallegos on 02-05-2024 Urea nitrogen [Mass/Vol] 14 mg/dL Normal 7-25 [facility] Comment on above: Performed By: #### C BC, CK, HS TROP, BNP, BMP, PTT, PT #### [facility] [address] XR chest 1V portableon 02-04 XR chest 1V portable [facility] Main [place] [address] [place] [address] XRay Report Signed Patient: Juila Villeda MR#: [id number] : 1950 Acct:[id number] Age/Sex: 73 / F ADM Date: 02/05/24 Loc: ER Room: Type: [facility] ER Attending Dr: Copies to: Mikey Gallegos MD Ordering Provider: Mikey Gallegos MD Date of Service: 02/05/24 XR/XR chest 1V portable: Chest Pain PORTABLE AP ERECT CHEST 1834 hours CLINICAL HISTORY: Irregular EKG on home monitor. Left-sided chest pain radiating to the jaw. COMPARISON: 10/17/2022 The heart is within normal limits. There is no vascular congestion. No consolidation is seen. There is no effusion or pneumothorax. The osseous structures are intact. There is subtle dextroscoliotic curvature and endplate spurring. XR/XR chest 1V portable IMPRESSION: NO ACUTE FINDINGS Impression dictated by: Claudette Olivares M.D.02/05/2024 8:52 PM Dictation Location: [place] [address] Transcribed By: [facility] 02/05/242051 Dictated By: Claudette Olivares MD 02/05/242051 Signed By: 02/05/242051 Normal [facility] ECG 12 Leadon 09-30-2023 [place] Work Phone: EKG shows normal sin us rhythm at 69 bpm with OK interval of 172 ms QRS duration 106 ms QTc 424 ms. Incomplete right bundle branch block probable. [facility] Work Phone: [place] Heart Perfusion W stress and W radionuclide Lucy 09-26-2023 Normal Lexiscan Myov iew cardiac perfusion stress test. No evidence of ischemia or myocardial infarction by perfusion imaging. Normal left ventricular systolic function, ejection fraction 68%. No change when compared to previous study. Signed by: Edelmira Pardo 09/26/2023 5:25 PM Dictation workstation: [id number] Interpreted By: Edelmira Pardo, Bo Shah STUDY: MYOCARDIAL PERFUSION STRESS TEST WITH LEXISCAN Performing facility: [facility], [address] [place] [address], [address], [address] Provider: Mary Alice Tatum MD, FACC PCP: Dr. Antoni Jha Supervising provider: Ubaldo Swenson MD, FACC INDICATION: PSVT, palpitations Abnormal EKG; Presyncope HISTORY: Gender: F; Age: 73 y/o ; Height: HT 171.5 cm cm; Weight: WT 107.049 kg kg. Abnormal EKG; HTN; Arrhythmias; Syncope; Palpitations; RBBB Denies smoking. COMPARISON: Previous nuclear testing completed 2010 at [facility]. ACCESSION NUMBER(S): [id number] ORDERING CLINICIAN: MARY ALICE TATUM TECHNIQUE: TWO [...] PERFUSION STRESS TEST WITH LEXISCAN Performing facility: [facility], [address] [place] [address], [address], [address] Provider: Mary Alice Tatum MD, FACC PCP: Dr. Antoni Jha Supervising provider: Ubaldo Swenson MD, FACC INDICATION: PSVT, palpitations Abnormal EKG; Presyncope HISTORY: Gender: F; Age: 73 y/o ; Height: HT 171.5 cm cm; Weight: WT 107.049 kg kg. Abnormal EKG; HTN; Arrhythmias; Syncope; Palpitations; RBBB Denies smoking. COMPARISON: Previous nuclear testing completed 2010 at [facility]. ACCESSION NUMBER(S): [id number] ORDERING CLINICIAN: MARY ALICE TATUM TECHNIQUE: TWO [...] Edelmira Pardo 09/26/2023 5:25 PM Dictation workstation: [id number] [place] Work Phone: NM Heart Perfusion W stress and W radionuclide IVOrdered By: Edelmira Pardo on 09-26-2023 [place] Work Phone: NM Heart Perfusion W stress and W radionuclide Lucy 09-25-2023 Radiology Study observation (narrative) [place] Work Phone: NUCLEAR STRESS TESTon 2023 NUCLEAR STRESS TEST Interpreted By: Edelmira Pardo and Beal Gina STUDY: MYOCARDIAL PERFUSION STRESS TEST WITH LEXISCAN Performing facility: [facility], [address] [place] [address], [address], [place] [id number] [facility] Provider: Mary Alice Tatum MD, FACC PCP: Dr. Antoni Jha Supervising provider: Ubaldo Swenson MD, FACC INDICATION: PSVT, palpitations Abnormal EKG; Presyncope HISTORY: Gender: F; Age: 73 y/o ; Height: HT 171.5 cm cm; Weight: WT 107.049 kg kg. Abnormal EKG; HTN; Arrhythmias; Syncope; Palpitations; RBBB Denies smoking. COMPARISON: Previous nuclear testing completed 2010 at [facility]. ACCESSION NUMBER(S): [id number] ORDERING CLINICIAN: MARY ALICE TATUM TECHNIQUE: TWO [...] Edelmira Pardo 09/26/2023 5:25 PM Dictation workstation: [id number] Normal [facility] ECG 12 Leadon 08-26-2023 Normal sinus rhythm, normal OK interval, right bundle branch block normal QTc. Right bundle branch block is noted on prior EKGs as well [facility] Work Phone: [place] cardiac event monitoron 0 08-13-2023 [place] cardiac event monitor [facility] [place] [address] Cardiac Event Monitor Signed Patient: Julia Villeda MR#: [id number] : 1950 Acct:[id number] Age/Sex: 73 / F ADM Date: 07/17/23 Loc: Room: Type: [facility] Attending Dr: Nancy Jha DO Copies to: [...] episodes were noted. Transcribed By: DIONICIO 08/13/23 5464 Dictated By: Edelmira Pardo MD 08/13/23 1206 Signed By: 08/14/23 1672 Normal [facility] XR hip RT min 2V(w/wo pelvis )*on 03-27-2023 XR hip RT min 2V(w/wo pelvis)* [facility] [employer] Other XR hip RT min 2V(w/wo pelvis)* [facility] Main [facility] [employer] Other XR hip RT min 2V(w/wo pelvis)* [address] [place] [address] [employer] ([employer] Other XR hip RT min 2V(w/wo pelvis)* [place] [address] [employer] ([employer]) Other XR hip RT min 2V(w/wo pelvis)* XRay Report [employer]) Other XR hip RT min 2V(w/wo pelvis)* Signed [employer] ([employer]) Other XR hip RT min 2V(w/wo pelvis)* Patient: Julia Villeda MR#: [id number] [employer] ([employer]) Other XR hip RT min 2V(w/wo pelvis)* 3268 [employer] ([employer]) Other XR hip RT min 2V(w/wo pelvis)* : 1950 Acct:[id number] [employer] ([employer]) Other XR hip RT min 2V(w/wo pelvis)* Age/Sex: 73 / F ADM Date: 03/27/23 [employer] ([employer]) Other XR hip RT min 2V(w/wo pelvis)* Loc: [facility] Room: Type: [facility] [employer] ([employer]) Other XR hip RT min 2V(w/wo pelvis)* Attending Dr: Herman Chang II, MD [employer] ([employer]) Other XR hip RT min 2V(w/wo pelvis)* Copies to: Hemran Chang MD [employer] ([employer]) Other XR hip RT min 2V(w/wo pelvis)* Ordering Provider: Herman Chang MD [employer] ([employer]) Other XR hip RT min 2V(w/wo pelvis)* Date of Service: 03/27/23 [employer] Other XR hip RT min 2V(w/wo pelvis)* XR/XR hip RT min 2V(w/wo pelvis)*: S/P total right hip arthroplasty [employer] ([employer]) Other XR hip RT min 2V(w/wo pelvis)* RIGHT HIP WITH LOW AP PELVIS- 2 views: [employer] ([employer]) Other XR hip RT min 2V(w/wo pelvis)* CLINICAL HISTORY: Follow-up right hip replacement [employer] ([employer]) Other XR hip RT min 2V(w/wo pelvis)* COMPARISON: 02/11/2023 [employer] Other XR hip RT min 2V(w/wo pelvis)* AP weight-bearing low pelvis and crosstable lateral view of the right hip were obtained. The right [employer] ([employer]) Other XR hip RT min 2V(w/wo pelvis)* hip prosthesis is again visualized. The hardware appears intact and unchanged from the prior. [employer] ([employer]) Other XR hip RT min 2V(w/wo pelvis)* There is no developing fracture or dislocation. There are no significant soft tissue abnormalities. [employer] ([employer]) Other XR hip RT min 2V(w/wo pelvis)* XR/XR hip RT min 2V(w/wo pelvis)* [employer] ([employer]) Other XR hip RT min 2V(w/wo pelvis)* IMPRESSION: [employer] ([employer]) Other XR hip RT min 2V(w/wo pelvis)* STABLE HIP PROSTHESIS [employer] Other XR hip RT min 2V(w/wo pelvis)* Impression dictated by: Claudette Olivares M.D.03/27/2023 2:28 PM [employer] ([employer]) Other XR hip RT min 2V(w/wo pelvis)* Dictation Location: [facility]- [employer] Other XR hip RT min 2V(w/wo pelvis)* Transcribed By: ARACELY 03/27/23 142 [employer] Other XR hip RT min 2V(w/wo pelvis)* Dictated By: Claudette Olivares MD 03/27/23 142 [employer] Other XR hip RT min 2V(w/wo pelvis)* Signed By: [employer] ([employer]) Other XR hip RT min 2V(w/wo pelvis)* 03/27/23 6984 [employer] Other Basophils Auto (Bld) [#/Vol] Ordered By: Herman Chang on 01-29-2023 Basophils (Bld) [#/Vol] 0.0 10*3/uL 0.0-0.2 [facility] Basophils/100 WBC Auto (Bld) Ordered By: Herman Chang on 01-29-2023 Basophils/100 WBC (Bld) 0.6 % . [facility] Bilirubin Test strip Ql (U)O rdered By: Herman Chang on 01-29-2023 Bilirubin Ql (U) Negative Negative [facility] Calcium [Mass/volume] in Ser um or PlasmaOrdered By: Herman Chang on 01-29-2023 Calcium [Mass/Vol] 9.6 mg/dL 8.6-10.3 [facility] Carbon dioxide, total [Moles /volume] in Serum or PlasmaOrdered By: Herman Chang on 01-29-2023 CO2 [Moles/Vol] 31.3 mmol/L 21.0-31.0 [facility] Chloride [Moles/volume] in S rubia or PlasmaOrdered By: Herman Chang on 01-29-2023 Chloride [Moles/Vol] 101 mmol/L 98-107 [facility] Color Auto (U)Ordered By: Kelsey Chang on 01-29-2023 Color (U) Yellow Yellow [facility] Creatinine [Mass/volume] in Serum or PlasmaOrdered By: Herman Chang on 01-29-2023 Creatinine [Mass/Vol] 0.72 mg/dL 0.60-1.20 [facility] Eosinophils Auto (Bld) [#/Vo l]Ordered By: Herman Chang on 01-29-2023 Eosinophils (Bld) [#/Vol] 0.1 10*3/uL 0.0-0.45 [facility] Eosinophils/100 WBC Auto (Bl d)Ordered By: Herman Chang on 01-29-2023 Eosinophils/100 WBC (Bld) 2.3 % . [facility] Erythrocyte distribution wid th Auto (RBC) [Ratio]Ordered By: Herman Chang on 01-29-2023 Erythrocyte distribution width (RBC) [Ratio] 14.7 % 11.9-15.3 [facility] Fructosamine [Moles/volume] in Serum or PlasmaOrdered By: Herman Chang on 01-29-2023 Fructosamine [Moles/Vol] 235 umol/L 0-285 [facility] Comment on above: Published reference interval for apparently healthysubjects between age 20 and 60 is 205 - 285 umol/L and in apoorly controlled diabetic population is 228 - 563 umol/Lwith a mean of 396 umol/L.Performed at: [facility] [place] [id number] Director: Billy Stringer PhD, Phone: [phone] Glucose [Mass/volume] in Ser um or PlasmaOrdered By: Herman Chang on 01-29-2023 Glucose [Mass/Vol] 93 mg/dL 70-100 [facility] Comment on above: ADA recommended refe rence rangeRandom Glucose Reference Range is dependent on time and content of last meal. Glucose of more than 200 mg/dL in a nonstressed, ambulatory subject supports the diagnosis of Diabetes Mellitus. Hematocrit Auto (Bld) [Volum e fraction]Ordered By: Herman Chang on 01-29-2023 Hematocrit (Bld) [Volume fraction] 36.5 % 34.0-46.4 [facility] Hemoglobin [Mass/volume] in BloodOrdered By: Herman Chang on 01-29-2023 Hemoglobin (Bld) [Mass/Vol] 12.2 g/dL 11.8-15.4 [facility] Ketones Auto test strip (U) [Mass/Vol]Ordered By: Herman Chang on 01-29-2023 Ketones (U) [Mass/Vol] Negative Negative [facility] Leukocytes [#/volume] correc arnoldo for nucleated erythrocytes in Blood by Automated counOrdered By: Herman Chang on 01-29-2023 WBC corrected for nucl RBC Auto (Bld) [#/Vol] 5.8 10*3/uL 3.8-11.6 [facility] Lymphocytes Auto (Bld) [#/Vo l]Ordered By: Herman Chang on 01-29-2023 Lymphocytes (Bld) [#/Vol] 1.9 10*3/uL 1.00-4.8 [facility] Lymphocytes/100 WBC Auto (Bl d)Ordered By: Herman Chang on 01-29-2023 Lymphocytes/100 WBC (Bld) 32.7 % . [facility] MCH Auto (RBC) [Entitic mass ]Ordered By: Herman Chang on 01-29-2023 MCH (RBC) [Entitic mass] 27.3 pg 24.7-34.3 [facility] MCHC Auto (RBC) [Mass/Vol]Or dered By: Herman Chang on 01-29-2023 MCHC (RBC) [Mass/Vol] 33.4 g/dL 32.0-35.0 [facility] MCV Auto (RBC) [Entitic vol] Ordered By: Herman Chang on 01-29-2023 MCV (RBC) [Entitic vol] 81.8 fL 80-100 [facility] Monocytes Auto (Bld) [#/Vol] Ordered By: Herman Chang on 01-29-2023 Monocytes (Bld) [#/Vol] 0.5 10*3/uL 0.0-0.8 [facility] Monocytes/100 WBC Auto (Bld) Ordered By: Herman Chang on 01-29-2023 Monocytes/100 WBC (Bld) 9.0 % . [facility] Neutrophils Auto (Bld) [#/Vo l]Ordered By: Herman Chang on 01-29-2023 Neutrophils (Bld) [#/Vol] 3.2 10*3/uL 1.8-7.7 [facility] Neutrophils/100 WBC Auto (Bl d)Ordered By: Herman Chang on 01-29-2023 Neutrophils/100 WBC (Bld) 55.4 % . [facility] Nitrite Test strip Ql (U)Ord ered By: Herman Chang on 01-29-2023 Nitrite Ql (U) Negative Negative [facility] No Panel InformationOrdered By: Herman Chang on 01-29-2023 Estimated GFR (CKD-EPI) > 60.0 mL/Min [facility] Creatinine Clearance (Chem N/A [facility] Nucleated erythrocytes [Pres ence] in Blood by Automated countOrdered By: Herman Chang on 01-29-2023 Nucleated RBC Auto Ql (Bld) 0.1 /100{WBC} 0-0.5 [facility] Platelet mean volume Auto (B ld) [Entitic vol]Ordered By: Herman Chang on 01-29-2023 Platelet mean volume (Bld) [Entitic vol] 8.0 fL 6.3-10.7 [facility] Platelets Auto (Bld) [#/Vol] Ordered By: Herman Chang on 01-29-2023 Platelets (Bld) [#/Vol] 263 10*3/uL 150-450 [facility] Potassium [Moles/volume] in Serum or PlasmaOrdered By: Herman Chang on 01-29-2023 Potassium [Moles/Vol] 4.0 mmol/L 3.5-5.1 [facility] Protein Auto test strip (U) [Mass/Vol]Ordered By: Herman Chang on 01-29-2023 Protein (U) [Mass/Vol] Negative Negative [facility] RBC Auto (Bld) [#/Vol]Ordere d By: Herman Chang on 01-29-2023 RBC (Bld) [#/Vol] 4.46 10*6/uL 3.60-5.00 [facility] Serum or plasma anion gap de terminationOrdered By: Herman Chang on 01-29-2023 Anion gap [Moles/Vol] 10.7 mmol/L 6.0-15.0 [facility] Sodium [Moles/volume] in Ser um or PlasmaOrdered By: Herman Chang on 01-29-2023 Sodium [Moles/Vol] 139 mmol/L 136-145 [facility] Specific gravity Auto test s trip (U) [Rel density]Ordered By: Herman Chang on 01-29-2023 Specific gravity (U) [Rel density] 1.007 1.001-1.030 [facility] Urea nitrogen [Mass/volume] in Serum or PlasmaOrdered By: Herman Chang on 01-29-2023 Urea nitrogen [Mass/Vol] 14 mg/dL 7-25 [facility] Urine clarity by refractomet ry automatedOrdered By: Herman Chang on 01-29-2023 Clarity Refractometry automated (U) Clear Clear [facility] Urine glucose measurement by automated test strip (mass/volume)Ordered By: Herman Chang on 01-29-2023 Glucose Auto test strip (U) [Mass/Vol] Normal mg/dL Normal [facility] Urine hemoglobin detection b y automated test stripOrdered By: Herman Chang on 01-29-2023 Hemoglobin Auto test strip Ql (U) Negative Negative [facility] Urine leukocyte esterase det ection by automated test stripOrdered By: Herman Chang on 01-29-2023 Leukocyte esterase Auto test strip Ql (U) Negative Negative [facility] Urobilinogen Auto test strip (U) [Mass/Vol]Ordered By: Herman Chang on 01-29-2023 Urobilinogen (U) [Mass/Vol] Normal mg/dL Normal [facility] WBC Auto (Bld) [#/Vol]Ordere d By: Herman Chang on 01-29-2023 WBC (Bld) [#/Vol] 5.8 10*3/uL 3.8-11.6 [facility] pH Auto test strip (U)Ordere d By: Herman Chang on 01-29-2023 pH (U) 7.5 [pH] 5.0-9.0 [facility] Albumin [Mass/volume] in Ser um or Plasma by Bromocresol green (BCG) dye binding methoOrdered By: Herman Chang on 12-20-2022 Albumin BCG dye [Mass/Vol] 4.2 g/dL 3.5-5.7 [facility] Cotinine [Mass/volume] in Se rum or PlasmaOrdered By: Herman Chang on 12-20-2022 Cotinine [Mass/Vol] <1.0 ng/mL . [facility] Comment on above: This test was develo ped and its performance characteristicsdetermined by [employer]. It has not been cleared orapproved by the Food and Drug Administration.Cotinine levels greater than 20.0 are consistent with theuse of tobacco or tobacco cessation products.Performed at: [facility] [id number] [place], [place] [id number] Director: Jonathan Buckley MD, Phone: [phone] Glucose mean value [Mass/vol ume] in Blood Estimated from glycated hemoglobinOrdered By: Herman Chang on 12-20-2022 Average glucose Estimated from glycated hemoglobin (Bld) [Mass/Vol] 123 mg/dL [facility] Hemoglobin A1c percentageOrd ered By: Herman Chang on 12-20-2022 HbA1c (Bld) [Mass fraction] 5.9 % 4.3-5.6 [facility] Comment on above: Increased risk for d iabetes: 5.7 - 6.4diabetes: >6.4glycemic control for adults with diabetes: <7.0 Hemoglobin [Mass/volume] in BloodOrdered By: Herman Chang on 12-20-2022 Hemoglobin (Bld) [Mass/Vol] 11.8 g/dL 11.8-15.4 [facility] Nicotine [Mass/volume] in Se rum or PlasmaOrdered By: Herman Chang on 12-20-2022 Nicotine [Mass/Vol] <1.0 ng/mL . [facility] Comment on above: This test was develo ped and its performance characteristicsdetermined by [employer]. It has not been cleared orapproved by the Food and Drug Administration.Nicotine levels greater than 2.0 are consistent with theuse of tobacco or tobacco cessation products. Vitamin D+Metabolites [Mass/ volume] in Serum or PlasmaOrdered By: Herman Chang on 12-20-2022 Vitamin D+Metabolites [Mass/Vol] 71.4 ng/mL 30-100 [facility] Comment on above: VITAMIN D STATUS 25( [place])VITAMIN D RANGE (ng/mL) Deficient <20 Insufficient 20 to <30Sufficient 30 to 100Reference: Sangeeta MF,Rudy FISHMAN, Rissa COOK, et al. Evaluation,treatment, and prevention of vitamin D deficiency; an Endocrine Society clinical practice guideline. JCEM. 2010; 96(7):1911-30. Wound methicillin resistant Staphylococcus aureus (MRSA) cultureOrdered By: Herman Chang on 12-20-2022 MRSA isol Org specific cx Ql (Unsp spec) No MRSA Isolated 2 Days [facility] Basophils Auto (Bld) [#/Vol] Ordered By: Nancy Jha on 11-20-2022 Basophils (Bld) [#/Vol] 0.0 10*3/uL 0.0-0.2 [facility] Basophils/100 WBC Auto (Bld) Ordered By: Nancy Jha on 11-20-2022 Basophils/100 WBC (Bld) 0.7 % . [facility] Eosinophils Auto (Bld) [#/Vo l]Ordered By: Nancy Jha on 11-20-2022 Eosinophils (Bld) [#/Vol] 0.2 10*3/uL 0.0-0.45 [facility] Eosinophils/100 WBC Auto (Bl d)Ordered By: Nancy Jha on 11-20-2022 Eosinophils/100 WBC (Bld) 4.2 % . [facility] Erythrocyte distribution wid th Auto (RBC) [Ratio]Ordered By: Nancy Jha on 11-20-2022 Erythrocyte distribution width (RBC) [Ratio] 14.2 % 11.9-15.3 [facility] Ferritin [Mass/volume] in Se rum or PlasmaOrdered By: Nancy Jha on 11-20-2022 Ferritin [Mass/Vol] 81.9 ng/mL 11.0-306.8 [facility] Folate [Mass/volume] in Seru m or PlasmaOrdered By: Nancy Jha on 11-20-2022 Folate [Mass/Vol] 41.0 ng/mL >5.[address] [facility] Comment on above: Folate reference ran ge: >5.9 ng/mlThe WHO technical consultation on folate and vitamin [id number] has determined that folate concentrations lessthan 4 ng/ml are considered deficient. Hematocrit Auto (Bld) [Volum e fraction]Ordered By: Nancy Jha on 11-20-2022 Hematocrit (Bld) [Volume fraction] 35.3 % 34.0-46.4 [facility] Hemoglobin [Mass/volume] in BloodOrdered By: Nancy Jha on 11-20-2022 Hemoglobin (Bld) [Mass/Vol] 11.9 g/dL 11.8-15.4 [facility] Iron [Mass/volume] in Serum or PlasmaOrdered By: Nancy Jha on 11-20-2022 Iron [Mass/Vol] 42 ug/dL 50-212 [facility] Iron binding capacity [Mass/ volume] in Serum or PlasmaOrdered By: Nancy Jha on 11-20-2022 Iron binding capacity [Mass/Vol] 358 ug/dL 255-450 [facility] Iron saturation [Mass Fracti on] in Serum or PlasmaOrdered By: Nancy Jha on 11-20-2022 Iron saturation [Mass fraction] 11.7 % 20-50 [facility] Leukocytes [#/volume] correc arnoldo for nucleated erythrocytes in Blood by Automated counOrdered By: Nancy Jha on 11-20-2022 WBC corrected for nucl RBC Auto (Bld) [#/Vol] 5.0 10*3/uL 3.8-11.6 [facility] Lymphocytes Auto (Bld) [#/Vo l]Ordered By: Nancy Jha on 11-20-2022 Lymphocytes (Bld) [#/Vol] 1.8 10*3/uL 1.00-4.8 [facility] Lymphocytes/100 WBC Auto (Bl d)Ordered By: Nancy Jha on 11-20-2022 Lymphocytes/100 WBC (Bld) 35.8 % . [facility] MCH Auto (RBC) [Entitic mass ]Ordered By: Nancy Jha on 11-20-2022 MCH (RBC) [Entitic mass] 27.4 pg 24.7-34.3 [facility] MCHC Auto (RBC) [Mass/Vol]Or dered By: Nancy Jha on 11-20-2022 MCHC (RBC) [Mass/Vol] 33.6 g/dL 32.0-35.0 [facility] MCV Auto (RBC) [Entitic vol] Ordered By: Nancy Jha on 11-20-2022 MCV (RBC) [Entitic vol] 81.4 fL 80-100 [facility] Magnesium [Mass/volume] in S rubia or PlasmaOrdered By: Nancy Jha on 11-20-2022 Magnesium [Mass/Vol] 2.1 mg/dL 1.9-2.7 [facility] Monocytes Auto (Bld) [#/Vol] Ordered By: Nancy Jha on 11-20-2022 Monocytes (Bld) [#/Vol] 0.6 10*3/uL 0.0-0.8 [facility] Monocytes/100 WBC Auto (Bld) Ordered By: Nancy Jha on 11-20-2022 Monocytes/100 WBC (Bld) 11.2 % . [facility] Neutrophils Auto (Bld) [#/Vo l]Ordered By: Nancy Jha on 11-20-2022 Neutrophils (Bld) [#/Vol] 2.4 10*3/uL 1.8-7.7 [facility] Neutrophils/100 WBC Auto (Bl d)Ordered By: Nancy Jha on 11-20-2022 Neutrophils/100 WBC (Bld) 48.1 % . [facility] Nucleated erythrocytes [Pres ence] in Blood by Automated countOrdered By: Nancy Jha on 11-20-2022 Nucleated RBC Auto Ql (Bld) 0.1 /100{WBC} 0-0.5 [facility] Platelet mean volume Auto (B ld) [Entitic vol]Ordered By: Nancy Jha on 11-20-2022 Platelet mean volume (Bld) [Entitic vol] 7.9 fL 6.3-10.7 [facility] Platelets Auto (Bld) [#/Vol] Ordered By: Nancy Jha on 11-20-2022 Platelets (Bld) [#/Vol] 290 10*3/uL 150-450 [facility] RBC Auto (Bld) [#/Vol]Ordere d By: Nancy Jha on 11-20-2022 RBC (Bld) [#/Vol] 4.34 10*6/uL 3.60-5.00 [facility] Thyrotropin [Units/volume] i n Serum or PlasmaOrdered By: Nancy Jha on 11-20-2022 TSH Qn 0.69 m[IU]/L 0.45-5.33 [facility] Thyroxine (T4) free [Mass/vo lume] in Serum or PlasmaOrdered By: Nancy Jha on 11-20-2022 Free T4 [Mass/Vol] 0.88 ng/dL 0.61-1.12 [facility] Transferrin [Mass/volume] in Serum or PlasmaOrdered By: Nancy Jha on 11-20-2022 Transferrin [Mass/Vol] 256 mg/dL 203-362 [facility] Vitamin B12 ser/plasOrdered By: Nancy Jha on 11-20-2022 Cobalamin (Vitamin B12) [Mass/Vol] 430 pg/mL 180-914 [facility] Vitamin D+Metabolites [Mass/ volume] in Serum or PlasmaOrdered By: Nancy Jha on 11-20-2022 Vitamin D+Metabolites [Mass/Vol] 63.9 ng/mL 30-100 [facility] Comment on above: VITAMIN D STATUS 25( [place])VITAMIN D RANGE (ng/mL) Deficient <20 Insufficient 20 to <30Sufficient 30 to 100Reference: Sangeeta BLEDSOE,Rudy FISHMAN, Rissa COOK, et al. Evaluation,treatment, and prevention of vitamin D deficiency; an Endocrine Society clinical practice guideline. JCEM. 2010; 96(7):1911-30. WBC Auto (Bld) [#/Vol]Ordere d By: Nancy Jha on 11-20-2022 WBC (Bld) [#/Vol] 5.0 10*3/uL 3.8-11.6 [facility] Activated partial thrombopla stin time (aPTT) in platelet poor plasma by coagulation aOrdered By: Frandy Pedersen on 10-17-2022 aPTT Coag (PPP) [Time] 37.8 s 25.1-36.5 [facility] Basophils Auto (Bld) [#/Vol] Ordered By: Frandy Pedersen on 10-17-2022 Basophils (Bld) [#/Vol] 0.0 10*3/uL 0.0-0.2 [facility] Basophils/100 WBC Auto (Bld) Ordered By: Frandy Pedersen on 10-17-2022 Basophils/100 WBC (Bld) 0.7 % . [facility] Calcium [Mass/volume] in Ser um or PlasmaOrdered By: Frandy Pedersen on 10-17-2022 Calcium [Mass/Vol] 9.0 mg/dL 8.6-10.3 [facility] Carbon dioxide, total [Moles /volume] in Serum or PlasmaOrdered By: Frandy Pedersen on 10-17-2022 CO2 [Moles/Vol] 30.5 mmol/L 21.0-31.0 [facility] Chloride [Moles/volume] in S rubia or PlasmaOrdered By: Frandy Pedersen on 10-17-2022 Chloride [Moles/Vol] 102 mmol/L 98-107 [facility] Creatine kinase [Enzymatic a ctivity/volume] in Serum or PlasmaOrdered By: Frandy Pedersen on 10-17-2022 CK [Catalytic activity/Vol] 48 U/L 30-223 [facility] Creatinine [Mass/volume] in Serum or PlasmaOrdered By: Frandy Pedersen on 10-17-2022 Creatinine [Mass/Vol] 0.79 mg/dL 0.60-1.20 [facility] Eosinophils Auto (Bld) [#/Vo l]Ordered By: Frandy Pedersen on 10-17-2022 Eosinophils (Bld) [#/Vol] 0.2 10*3/uL 0.0-0.45 [facility] Eosinophils/100 WBC Auto (Bl d)Ordered By: Frandy Pedersen on 10-17-2022 Eosinophils/100 WBC (Bld) 3.2 % . [facility] Erythrocyte distribution wid th Auto (RBC) [Ratio]Ordered By: Frandy Pedersen on 10-17-2022 Erythrocyte distribution width (RBC) [Ratio] 13.9 % 11.9-15.3 [facility] Glucose [Mass/volume] in Ser um or PlasmaOrdered By: Frandy Pedersen on 10-17-2022 Glucose [Mass/Vol] 114 mg/dL 70-100 [facility] Comment on above: ADA recommended refe rence rangeRandom Glucose Reference Range is dependent on time and content of last meal. Glucose of more than 200 mg/dL in a nonstressed, ambulatory subject supports the diagnosis of Diabetes Mellitus. Hematocrit Auto (Bld) [Volum e fraction]Ordered By: Frandy Pedersen on 10-17-2022 Hematocrit (Bld) [Volume fraction] 35.9 % 34.0-46.4 [facility] Hemoglobin [Mass/volume] in BloodOrdered By: Frandy Pedersen on 10-17-2022 Hemoglobin (Bld) [Mass/Vol] 11.8 g/dL 11.8-15.4 [facility] Laboratory - CoagulationOrde red By: Frandy Pedersen on 10-17-2022 PT Coag (PPP) [Time] 12.3 s 9.0-12.9 [facility] Leukocytes [#/volume] correc arnoldo for nucleated erythrocytes in Blood by Automated counOrdered By: Frandy Pedersen on 10-17-2022 WBC corrected for nucl RBC Auto (Bld) [#/Vol] 5.1 10*3/uL 3.8-11.6 [facility] Lymphocytes Auto (Bld) [#/Vo l]Ordered By: Frandy Pedersen on 10-17-2022 Lymphocytes (Bld) [#/Vol] 1.7 10*3/uL 1.00-4.8 [facility] Lymphocytes/100 WBC Auto (Bl d)Ordered By: Frandy Pedersen on 10-17-2022 Lymphocytes/100 WBC (Bld) 32.9 % . [facility] MCH Auto (RBC) [Entitic mass ]Ordered By: Frandy Pedersen on 10-17-2022 MCH (RBC) [Entitic mass] 26.7 pg 24.7-34.3 [facility] MCHC Auto (RBC) [Mass/Vol]Or dered By: Frandy Pedersen on 10-17-2022 MCHC (RBC) [Mass/Vol] 32.9 g/dL 32.0-35.0 [facility] MCV Auto (RBC) [Entitic vol] Ordered By: Frandy Pedersen on 10-17-2022 MCV (RBC) [Entitic vol] 81.2 fL 80-100 [facility] Monocyte distribution width [Entitic volume] in Blood by AutomatedOrdered By: Frandy Pedersen on 10-17-2022 Monocyte distribution width Auto (Bld) [Entitic vol] 16.33 % 0.00-20.00 [facility] Monocytes Auto (Bld) [#/Vol] Ordered By: Frandy Pedersen on 10-17-2022 Monocytes (Bld) [#/Vol] 0.4 10*3/uL 0.0-0.8 [facility] Monocytes/100 WBC Auto (Bld) Ordered By: Frandy Pedersen on 10-17-2022 Monocytes/100 WBC (Bld) 8.8 % . [facility] Natriuretic peptide B [Mass/ Vol]Ordered By: Frandy Pedersen on 10-17-2022 Natriuretic peptide B (Bld) [Mass/Vol] 14.0 pg/mL 5-100 [facility] Neutrophils Auto (Bld) [#/Vo l]Ordered By: Frandy Pedersen on 10-17-2022 Neutrophils (Bld) [#/Vol] 2.8 10*3/uL 1.8-7.7 [facility] Neutrophils/100 WBC Auto (Bl d)Ordered By: Frandy Pedersen on 10-17-2022 Neutrophils/100 WBC (Bld) 54.4 % . [facility] No Panel InformationOrdered By: Frandy Pedersen on 10-17-2022 Estimated GFR (CKD-EPI) > 60.0 mL/Min [facility] Creatinine Clearance (Chem 82.04 [facility] Nucleated erythrocytes [Pres ence] in Blood by Automated countOrdered By: Frandy Pedersen on 10-17-2022 Nucleated RBC Auto Ql (Bld) 0.0 /100{WBC} 0-0.5 [facility] Platelet mean volume Auto (B ld) [Entitic vol]Ordered By: Frandy Pedersen on 10-17-2022 Platelet mean volume (Bld) [Entitic vol] 7.9 fL 6.3-10.7 [facility] Platelet poor plasma interna tional normalized ratio (INR) by coagulation assay (relatOrdered By: Frandy Pedersen on 10-17-2022 INR Coag (PPP) [Relative time] 1.1 {INR} [facility] Comment on above: INR Therapeutic Rang e [...] 10-17-2022 Platelets (Bld) [#/Vol] 299 10*3/uL 150-450 [facility] Potassium [Moles/volume] in Serum or PlasmaOrdered By: Frandy Pedersen on 10-17-2022 Potassium [Moles/Vol] 3.5 mmol/L 3.5-5.1 [facility] RBC Auto (Bld) [#/Vol]Ordere d By: Frandy Pedersen on 10-17-2022 RBC (Bld) [#/Vol] 4.42 10*6/uL 3.60-5.00 [facility] Serum or plasma anion gap de terminationOrdered By: Frandy Pedersen on 10-17-2022 Anion gap [Moles/Vol] 10.0 mmol/L 6.0-15.0 [facility] Sodium [Moles/volume] in Ser um or PlasmaOrdered By: Frandy Pedersen on 10-17-2022 Sodium [Moles/Vol] 139 mmol/L 136-145 [facility] Troponin I.cardiac [Mass/vol ume] in Serum or Plasma by Detection limit <= 0.01 ng/Ordered By: Frandy Pedersen on 10-17-2022 Troponin I.cardiac DL <= 0.01 ng/mL [Mass/Vol] 3.1 pg/mL 0.0-15.0 [facility] Troponin I.cardiac DL <= 0.01 ng/mL [Mass/Vol] 5.3 pg/mL 0.0-15.0 [facility] Urea nitrogen [Mass/volume] in Serum or PlasmaOrdered By: Frandy Pedersen on 10-17-2022 Urea nitrogen [Mass/Vol] 14 mg/dL 7-25 [facility] WBC Auto (Bld) [#/Vol]Ordere d By: Frandy Pedersen on 10-17-2022 WBC (Bld) [#/Vol] 5.1 10*3/uL 3.8-11.6 [facility] POINT OF CARE GLUCOSEon 09-01 Glucose [Mass/Vol] 100 mg/dL Normal 74-106 [facility] Comment on above: Performed By: #### P OCGLUC #### [facility] [address] [place] [address] Dr. Janelle Hoffman Glucose [Mass/Vol] 106 mg/dL Normal 74-106 [facility] Comment on above: Performed By: #### P OCGLUC #### [facility] [address] [place] [address] Dr. Janelle Hoffman PROF CHEM 8 (BAS METB)on Anion gap [Moles/Vol] 10.0 mmol/L Normal [facility] Comment on above: Performed By: #### B MP #### [facility] [address] [place] [address] Dr. Janelle Hoffman Calcium [Mass/Vol] 9.5 mg/dL Normal 8.5-10.1 [facility] Comment on above: Performed By: #### B MP #### [facility] [address] [place] [address] Dr. Janelle Hoffman Chloride [Moles/Vol] 102 mmol/L Normal 98-107 [facility] Comment on above: Performed By: #### B MP #### [facility] [address] [place] [address] Dr. Janelle Hoffman CO2 [Moles/Vol] 33.5 mmol/L Critically high 21.0-32.0 [facility] Comment on above: Performed By: #### B MP #### [facility] [address] [place] [address] Dr. Janelle Hoffman Creatinine [Mass/Vol] 0.73 mg/dL Normal 0.55-1.02 [facility] Comment on above: Performed By: #### B MP #### [facility] [address] [place] [address] Dr. Janelle Hoffman EGFR-AF UZBEK >60 Normal >=60 [facility] Comment on above: Performed By: #### B MP #### [facility] [address] [place] [address] Dr. Janelle Hoffman EGFR-NON AF UZBEK >60 Normal >=60 [facility] Comment on above: Performed By: #### B MP #### [facility] [address] [address] [address] Janelle Hoffman Glucose [Mass/Vol] 98 mg/dL Normal 74-106 [facility] Comment on above: Performed By: #### B MP #### [facility] [id number] Janelle Hoffman Potassium [Moles/Vol] 3.5 mmol/L Normal 3.5-5.1 [facility] Comment on above: Performed By: #### B MP #### [facility] [address] [address] [address] Janelle Hoffman Sodium [Moles/Vol] 142 mmol/L Normal 136-145 [facility] Comment on above: Performed By: #### B MP #### [facility] [address] [address] [address] Janelle Hoffman Urea nitrogen [Mass/Vol] 11.0 mg/dL Normal 7.0-18.0 [facility] Comment on above: Performed By: #### B MP #### [facility] [id number] Janelle Hoffman Urea nitrogen/Creatinine [Mass ratio] 15.1 mg/mg Normal [facility] Comment on above: Performed By: #### B MP #### [facility] [address] [address] [address] Janelle Hoffman XR hip RT min 2V(w/wo pelvis )*on 06-20-2022 XR hip RT min 2V(w/wo pelvis)* [facility] [employer] Other XR hip RT min 2V(w/wo pelvis)* [facility] [employer] Other XR hip RT min 2V(w/wo pelvis)* [address] [place] [address] [employer] Other XR hip RT min 2V(w/wo pelvis)* [address] [employer] Other XR hip RT min 2V(w/wo pelvis)* XRay Report [employer] Other XR hip RT min 2V(w/wo pelvis)* Signed [employer]) Other XR hip RT min 2V(w/wo pelvis)* Patient: Julia Villead MR#: [id number] [employer] Other XR hip RT min 2V(w/wo pelvis)* 3268 [employer]) Other XR hip RT min 2V(w/wo pelvis)* : 1950 Acct:[id number] [employer] Other XR hip RT min 2V(w/wo pelvis)* Age/Sex: 72 / F ADM Date: 06/20/22 [employer] Other XR hip RT min 2V(w/wo pelvis)* Loc: [facility] Room: Type: [facility] [employer]) Other XR hip RT min 2V(w/wo pelvis)* Attending Dr: Herman Chang II, MD [employer]) Other XR hip RT min 2V(w/wo pelvis)* Copies to: Herman Chang MD [employer] Other XR hip RT min 2V(w/wo pelvis)* Ordering Provider: Herman Chang MD [employer] Other XR hip RT min 2V(w/wo pelvis)* Date of Service: 06/20/22 [employer] Other XR hip RT min 2V(w/wo pelvis)* XR/XR hip RT min 2V(w/wo pelvis)*: Right hip pain [employer] Other XR hip RT min 2V(w/wo pelvis)* 2 views RIGHT hip with single view pelvisplain film [employer]) Other XR hip RT min 2V(w/wo pelvis)* COMPARISON:06/19/11 [employer] Other XR hip RT min 2V(w/wo pelvis)* HISTORY:RIGHT hip pain for months [employer] Other XR hip RT min 2V(w/wo pelvis)* No fracture, dislocation or focal soft tissue abnormality seen.[id number] contact RIGHT hip [employer] Other XR hip RT min 2V(w/wo pelvis)* degenerative changes with subarticular sclerotic and cystic changes present. Unremarkable LEFT hip. [employer] Other XR hip RT min 2V(w/wo pelvis)* Mild SI joint degeneration. Spurring of the greater trochanters. [employer] Other XR hip RT min 2V(w/wo pelvis)* XR/XR hip RT min 2V(w/wo pelvis)* [employer]) Other XR hip RT min 2V(w/wo pelvis)* IMPRESSION:Extensive RIGHT hip degenerative change. [employer] Other XR hip RT min 2V(w/wo pelvis)* Impression dictated by: Guille Vasquez M.D.06/20/2022 4:35 PM [employer] Other XR hip RT min 2V(w/wo pelvis)* Dictation Location: [place] [address] [employer]) Other XR hip RT min 2V(w/wo pelvis)* Transcribed By: ARACELY 06/20/22 [facility] [employer]) Other XR hip RT min 2V(w/wo pelvis)* Dictated By: Guille Vasquez DO 06/20/22 [facility] [employer]) Other XR hip RT min 2V(w/wo pelvis)* Signed By: [employer] ([employer]) Other XR hip RT min 2V(w/wo pelvis)* 06/20/22 163 [employer] Other Complete Blood Count with Au to Diffon 10-17-2021 Basophils (Bld) [#/Vol] 0.04 10*3/uL Normal 0.00-0.20 [facility] [employer] Comment on above: Performed By: #### T SH reflex FT4, CBCAD, CMP, FT4, LIPD #### [facility] [address] [place], [place] [id number] Basophils/100 WBC (Bld) 0.6 % Normal [facility] [employer] Comment on above: Performed By: #### T SH reflex FT4, CBCAD, CMP, FT4, LIPD #### [facility] [address] [place], [place] [id number] Eosinophils (Bld) [#/Vol] 0.21 10*3/uL Normal 0.02-0.50 [facility] [employer] Comment on above: Performed By: #### T SH reflex FT4, CBCAD, CMP, FT4, LIPD #### [facility] [address] [place], [place] [id number] Eosinophils/100 WBC (Bld) 3.3 % Normal [facility] [employer] Comment on above: Performed By: #### T SH reflex FT4, CBCAD, CMP, FT4, LIPD #### [facility] [address] [place], [place] [id number] Erythrocyte distribution width (RBC) [Ratio] 13.9 % Normal 11.0-15.0 [facility] [employer] Comment on above: Performed By: #### T SH reflex FT4, CBCAD, CMP, FT4, LIPD #### [facility] [address] [place], [place] [id number] Hematocrit (Bld) [Volume fraction] 40.3 % Normal 35.0-47.0 [facility] [employer] Comment on above: Performed By: #### T SH reflex FT4, CBCAD, CMP, FT4, LIPD #### [facility] [address] [place], [place] [id number] Hemoglobin (Bld) [Mass/Vol] 12.9 g/dL Normal 11.6-15.5 [facility] [employer] Comment on above: Performed By: #### T SH reflex FT4, CBCAD, CMP, FT4, LIPD #### [facility] [address] [place], [place] [id number] Lymphocytes (Bld) [#/Vol] 1.9 10*3/uL Normal 0.9-3.9 [facility] Comment on above: Performed By: #### T SH reflex FT4, CBCAD, CMP, FT4, LIPD #### [facility] [address] [place], [place] [id number] Lymphocytes/100 WBC (Bld) 30.0 % Normal [facility] Comment on above: Performed By: #### T SH reflex FT4, CBCAD, CMP, FT4, LIPD #### [facility] [address] [place], [place] [id number] MCH (RBC) [Entitic mass] 26.7 pg Low 27.0-33.0 [facility] Comment on above: Performed By: #### T SH reflex FT4, CBCAD, CMP, FT4, LIPD #### [facility] [address] [place], [place] [id number] MCHC (RBC) [Mass/Vol] 32.0 g/dL Normal 32.0-36.0 [facility] Comment on above: Performed By: #### T SH reflex FT4, CBCAD, CMP, FT4, LIPD #### [facility] [address] [place], [place] [id number] MCV (RBC) [Entitic vol] 83 fL Normal 80-100 [facility] Comment on above: Performed By: #### T SH reflex FT4, CBCAD, CMP, FT4, LIPD #### [facility] [address] [place], [place] [id number] Monocytes (Bld) [#/Vol] 0.6 10*3/uL Normal 0.2-0.9 [facility] Comment on above: Performed By: #### T SH reflex FT4, CBCAD, CMP, FT4, LIPD #### [facility] [address] [place], [place] [id number] Monocytes/100 WBC (Bld) 9.1 % Normal [facility] Comment on above: Performed By: #### T SH reflex FT4, CBCAD, CMP, FT4, LIPD #### [facility] [address] [place], [place] [id number] Neutrophils (Bld) [#/Vol] 3.6 10*3/uL Normal 1.5-7.8 [facility] Comment on above: Performed By: #### T SH reflex FT4, CBCAD, CMP, FT4, LIPD #### [facility] [address], [place] [id number] Neutrophils/100 WBC (Bld) 56.7 % Normal [facility] Comment on above: Performed By: #### T SH reflex FT4, CBCAD, CMP, FT4, LIPD #### [facility] [address] [place], [place] [id number] Platelet mean volume (Bld) [Entitic vol] 10.40 fL Normal 7.50-12.50 [facility] Comment on above: Performed By: #### T SH reflex FT4, CBCAD, CMP, FT4, LIPD #### [facility] [address] [place], [place] [id number] Platelets (Bld) [#/Vol] 346 10*3/uL Normal 140-400 [facility] Comment on above: Performed By: #### T SH reflex FT4, CBCAD, CMP, FT4, LIPD #### [facility] [address] [place], [place] [id number] RBC (Bld) [#/Vol] 4.83 10*6/uL Normal 3.90-5.20 [facility] Comment on above: Performed By: #### T SH reflex FT4, CBCAD, CMP, FT4, LIPD #### [facility] [address] [place], [place] [id number] RDW-SD 42.3 fL Normal 37.0-50.0 [facility] Comment on above: Performed By: #### T SH reflex FT4, CBCAD, CMP, FT4, LIPD #### [facility] [address] [place], [place] [id number] WBC (Bld) [#/Vol] 6.4 10*3/uL Normal 3.8-11.0 [facility] [employer] Comment on above: Performed By: #### T SH reflex FT4, CBCAD, CMP, FT4, LIPD #### [facility] [address], [place] [id number] Comprehensive Metabolic Pane rebecca 10-17-2021 Albumin [Mass/Vol] 4.6 g/dL Normal 3.6-5.1 Angelita rn [employer] Comment on above: Performed By: #### T SH reflex FT4, CBCAD, CMP, FT4, LIPD #### [facility] [address] [place], [place] [id number] Albumin/Globulin [Mass ratio] 1.9 {ratio} Normal 1.0-2.5 [facility] Comment on above: Performed By: #### T SH reflex FT4, CBCAD, CMP, FT4, LIPD #### [facility] [address] [place], [place] [id number] ALP [Catalytic activity/Vol] 111 U/L Normal 35-119 [facility] Comment on above: Performed By: #### T SH reflex FT4, CBCAD, CMP, FT4, LIPD #### [facility] [address] [place], [place] [id number] ALT [Catalytic activity/Vol] 19 U/L Normal 6-33 [facility] Comment on above: Result Comment: 05/03 Female reference range changed. Performed By: #### T SH reflex FT4, CBCAD, CMP, FT4, LIPD #### [facility] [address], [place] [id number] Anion gap [Moles/Vol] 18 mmol/L Normal 12-20 [facility] Comment on above: Result Comment: Effe ctive 06/08/2019 reference range changed. Performed By: #### T SH reflex FT4, CBCAD, CMP, FT4, LIPD #### [facility] [address] [place], [place] [id number] AST [Catalytic activity/Vol] 20 U/L Normal 9-34 [facility] Comment on above: Performed By: #### T SH reflex FT4, CBCAD, CMP, FT4, LIPD #### [facility] [address], [place] [id number] Bilirubin [Mass/Vol] 0.71 mg/dL Normal 0.30-1.20 [facility] Comment on above: Performed By: #### T SH reflex FT4, CBCAD, CMP, FT4, LIPD #### [facility] [address] [place], [place] [id number] BUN/CREA 20 Ratio Normal 6-22 [facility] Comment on above: Performed By: #### T SH reflex FT4, CBCAD, CMP, FT4, LIPD #### [facility] [address] [place], [place] [id number] Calcium [Mass/Vol] 9.5 mg/dL Normal 8.6-10.2 [facility] Comment on above: Performed By: #### T SH reflex FT4, CBCAD, CMP, FT4, LIPD #### [facility] [address], [place] [id number] Chloride [Moles/Vol] 102 mmol/L Normal 98-107 [facility] Comment on above: Performed By: #### T SH reflex FT4, CBCAD, CMP, FT4, LIPD #### [facility] [address], [place] [id number] CO2 [Moles/Vol] 24 mmol/L Normal 20-31 [facility] Comment on above: Performed By: #### T SH reflex FT4, CBCAD, CMP, FT4, LIPD #### [facility] [address], [place] [id number] Creatinine [Mass/Vol] 0.8 mg/dL Normal 0.6-1.4 [facility] Comment on above: Performed By: #### T SH reflex FT4, CBCAD, CMP, FT4, LIPD #### [facility] [address], [place] [id number] eGFRAA 93 mL/min/1.73m2 Normal >60 [facility] Comment on above: Performed By: #### T SH reflex FT4, CBCAD, CMP, FT4, LIPD #### [facility] [address], [place] [id number] eGFRNAA 77 mL/min/1.73m2 Normal >60 [facility] [employer] Comment on above: Performed By: #### T SH reflex FT4, CBCAD, CMP, FT4, LIPD #### [facility] [address], [place] [id number] Globulin (S) [Mass/Vol] 2.4 g/dL Normal 1.9-3.7 [facility] [employer] Comment on above: Performed By: #### T SH reflex FT4, CBCAD, CMP, FT4, LIPD #### [facility] [address] [place], [place] [id number] Glucose [Mass/Vol] 109 mg/dL High 65-99 Angelita crenshaw [employer] Comment on above: Result Comment: For FASTING Glucose --- ADA reference ranges: Normal 65-99 mg/dl Prediabetes 100-125 Diabetes >/= 126 Performed By: #### T SH reflex FT4, CBCAD, CMP, FT4, LIPD #### [facility] [address] [place], [place] [id number] Potassium [Moles/Vol] 4.3 mmol/L Normal 3.5-5.5 [facility] Comment on above: Performed By: #### T SH reflex FT4, CBCAD, CMP, FT4, LIPD #### [facility] [address] [place], [place] [id number] Protein [Mass/Vol] 7.0 g/dL Normal 6.1-8.1 Angelita crenshaw [employer] Comment on above: Performed By: #### T SH reflex FT4, CBCAD, CMP, FT4, LIPD #### [facility] [address] [place], [place] [id number] Sodium [Moles/Vol] 139 mmol/L Normal 135-146 Angelita crenshaw [employer] Comment on above: Performed By: #### T SH reflex FT4, CBCAD, CMP, FT4, LIPD #### [facility] [address] [place], [place] [id number] Urea nitrogen [Mass/Vol] 15 mg/dL Normal 7-25 [facility] [employer] Comment on above: Performed By: #### T SH reflex FT4, CBCAD, CMP, FT4, LIPD #### [facility] [address] [place], [place] [id number] Free T4on 10-17-2021 Free T4 [Mass/Vol] 1.45 ng/dL Normal 0.80-1.80 [facility] Comment on above: Performed By: #### T SH reflex FT4, CBCAD, CMP, FT4, LIPD #### [facility] [address] [place], [place] [id number] Hemoglobin A1Con 10-17-2021 EAG 125.50 Normal [facility] Comment on above: Performed By: #### A 1C #### [facility] [address] [place], [place] [id number] HbA1c (Bld) [Mass fraction] 6.0 % Normal 4.0-6.0 [facility] Comment on above: Performed By: #### A 1C #### [facility] [address] [place], [place] [id number] Lipid Panelon 10-17-2021 Cholesterol [Mass/Vol] 193 mg/dL Normal 125-200 [facility] Comment on above: Result Comment: Low risk < 200mg/dL Borderline risk 201-239 mg/dl High risk > or equal to 240 Performed By: #### T SH reflex FT4, CBCAD, CMP, FT4, LIPD #### [facility] [address] [place], [place] [id number] Cholesterol in HDL [Mass/Vol] 44 mg/dL Normal >40 [facility] Comment on above: Result Comment: High Cardiovascular Risk HDL <40 mg/dL Low Cardiovascular Risk HDL > or equal to 60 mg/dl Performed By: #### T SH reflex FT4, CBCAD, CMP, FT4, LIPD #### [facility] [address] [place], [place] [id number] Cholesterol in LDL [Mass/Vol] 126 mg/dL Normal [facility] Comment on above: Result Comment: LDL ATP III CLASSIFICATION LDL less than 100 mg/dl Optimal LDL 100-129 mg/dl Near or above optimal LDL 130-159 Borderline high LDL 160-189 High LDL greater than 189 mg/dl Very High Performed By: #### T SH reflex FT4, CBCAD, CMP, FT4, LIPD #### [facility] [address] [place], [place] [id number] Cholesterol in VLDL [Mass/Vol] 23 mg/dL Normal [facility] Comment on above: Performed By: #### T SH reflex FT4, CBCAD, CMP, FT4, LIPD #### [facility] [address] [place], [place] [id number] Cholesterol.total/Cho lesterol in HDL [Mass ratio] 4 {ratio} Normal [facility] Comment on above: Performed By: #### T SH reflex FT4, CBCAD, CMP, FT4, LIPD #### [facility] [address] [place], [place] [id number] Triglyceride [Mass/Vol] 116 mg/dL Normal 30-150 [facility] Comment on above: Result Comment: TRIG ATPIII CLASSIFICATIONS TRIG less than 150 mg/dl Normal TRIG 150-199 mg/dl Borderline High TRIG 200-500 mg/dl High TRIG greather than 500 mg/dl Very High Performed By: #### T SH reflex FT4, CBCAD, CMP, FT4, LIPD #### [facility] [address] [place], [place] [id number] Microalbumin (with Creat)on 10-17-2021 mALB <1.2 Low [facility] Comment on above: Result Comment: Unab le to calculate mALB/Crea ratio, mALB is <1.2 mg/dL mALB reference range not established. Performed By: #### m ALBC #### [facility] [address] [place], [place] [id number] UCREA 261 mg/dL High 28-217 [facility] Comment on above: Performed By: #### m ALBC #### [facility] [address] [place], [place] [id number] TSH w/ Reflex to Free T4on 0 10-17-2021 FT4 reflex Free T4 Normal [facility] Comment on above: Performed By: #### T SH reflex FT4, CBCAD, CMP, FT4, LIPD #### [facility] [address] [place], [place] [id number] TSH 0.201 uIU/mL Low 0.400-4.500 [place] [employer] Comment on above: Performed By: #### T SH reflex FT4, CBCAD, CMP, FT4, LIPD #### [facility] [address] [place], [place] [id number] PEPEOVon 04-11-2021 CNOV Office Visit (LOORRM ) ----- VILLEDAJULIA Martell ([id number]) 1950 F Date Time Provider Department 04/11/21 2:45 PM BEST VALERA During your visit today, [...] Best Valera MD Referring Provider: BEST VALERA [[id number]] Allergies As of Date: 04/11/2021 Noted Allergy [...] Meds Comments as of 09/12/2020: 07/28 08/19 Pfizer Problem List As Of Date 04/11/2021 Noted Resolved Hip pain [M25.559] 07/27/2009 05/18/2015 Hip Arthritis [M16.10] 07/27/2009 Rotator cuff tendonitis [M75.80] 05/10/2015 Impingement syndrome of right shoulder [M75.41] 05/10/2015 Shoulder impingement syndrome [M75.40] 05/18/2015 09/13/2015 Right hand pain [M79.641] 09/27/2015 12/08/2018 Radial styloid tenosynovitis of right hand [M65*01/20/2016 Sprain of right shoulder [S43.401A] 10/09/2016 VONAD on CPAP [G47.33, Z99.89] 11/11/2018 Essential hypertension [I10] 11/11/2018 Other specified hypothyroidism [E03.8] 11/11/2018 OA (osteoarthritis) of knee [M17.10] 12/08/2018 S/P total knee replacement, left 12/08/18 [Z96.65*01/20/2019 Obesity, Class II, BMI 35-39.9 [E66.9] 10/03/2020 Encounter Status:Closed by BEST VALERA on 04/11/21 [facility] CNOVon 01-24-2021 CNOV Office Visit (JERRI ) ----- JULIA VILLEDA ([id number]) 1950 F Date Time Provider Department 01/24/21 9:45 AM [facility]ERA During your visit today, we recorded the following information about you: Best Valera MD 01/24/2021 10:33 AM Signed Ortho Knee Follow Up Note Narrative Referring Provider: Best Valera [address] [place] [address] PCP: Nancy Jha, DO === IMPRESSION/PLAN: === [...] 2+ dorsalis pedis and negative homans sign 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 [facility] CNPNon 10-26-2020 CNPN Telephone (Post-i) ----- JULIA VILLEDA ([id number]) 1950 F Date Time Provider Department 10/26/20 BEST VALERA [facility] During your visit today, we recorded the following information about you: Jailene Girard Pss 10/26/2020 8:55 AM Signed Patient calling in regards to PT orders that were discussed at 10/25 office visit Requesting orders be faxed to [facility] at [phone], attention Elkin Womack. Any question [facility] phone is [phone] Patient can be reached at [phone] with any questions. Please advise. Anshul Branch [...] Encounter Status:Closed by ANSHUL BRANCH on 10/26/20 [facility] CNOVon 10-25-2020 CNOV Office Visit (LOORRM ) ----- RONALJULIA dOom ([id number]) 1950 F Date Time Provider Department 10/25/20 10:00 AM MENDEZ COSBY During your visit today, we recorded the following information about you: Mendez Cosby PA-C 10/25/2020 10:27 AM Signed Ortho Knee Follow Up Note Narrative Referring Provider: Best Valera [address] 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 [facility] XR KNEE 3V AP/LAT/MERCHANT R Ton [...] New right total knee arthroplasty without complication Business Support: [facility] Transcribe Date/Time: Oct 25 2020 3:56P Dictated by : FRANCE TIJERINA MD This examination was interpreted and the report reviewed and electronically signed by: FRANCE TIJERINA MD on Oct 25 2020 3:57PM EST [id number] [facility] XR Knee AP and Lateral and M erchantson 10-25-2020 IMPRESSION: New right total knee arthroplasty without complication Business Support: [facility] Transcribe Date/Time: Oct 25 2020 3:56P Dictated by : FRANCE TIJERINA MD This examination was interpreted and the report reviewed and electronically signed by: FRANCE TIJERINA MD on Oct 25 2020 3:57PM EST DIVISION OF RADIOLOGY * * *Final Report* * * DATE [...] fracture or lucency. No significant joint effusion. DIVISION OF RADIOLOGY Provider, [facility] - 10/25/2020 * * *Final Report* * * DATE [...] fracture or lucency. No significant joint effusion. IMPRESSION IMPRESSION: New right total knee arthroplasty without complication Business Support: [facility] Transcribe Date/Time: Oct 25 2020 3:56P Dictated by : FRANCE TIJERINA MD This examination was interpreted and the report reviewed and electronically signed by: FRANCE TIJERINA MD on Oct 25 2020 3:57PM EST [facility] Radiology Study observation (narrative) [facility] XR Knee AP and Lateral and M erchantsOrdered By: Ccf Provider on 10-25-2020 [facility] CNPNon 10-11-2020 CNPN Telephone (LOORRM) ----- JULIA VILLEDA ([id number]) 1950 F Date Time Provider Department 10/11/20 BEST VALERA During your visit today, we recorded the following information about you: [place]oke Serna Pss 10/11/2020 9:26 AM Signed Patient [...] Please call patient back at phone number [phone]. Mendez Cosby PA-C 10/11/2020 12:21 PM Signed [...] BMI 35-39.9 [E66.9] 10/03/2020 Encounter Status:Closed by MENDEZ COSBY on 10/11/20 [facility] CBCon 10-04-2020 Absolute nRBC <0.01 Normal <0.01 [facility] al Erythrocyte distribution width (RBC) [Ratio] 12.8 % Normal 11.5-15.0 [facility] Hematocrit (Bld) [Volume fraction] 32.4 % Low 36.0-46.0 [facility] Hemoglobin (Bld) [Mass/Vol] 10.8 g/dL Low 11.5-15.5 [facility] MCH 27.6 pG Normal 26.0-34.0 [facility] MCHC (RBC) [Mass/Vol] 33.3 g/dL Normal 30.5-36.0 [facility] MCV (RBC) [Entitic vol] 82.7 fL Normal 80.0-100.0 [facility] Platelet mean volume (Bld) [Entitic vol] 10.0 fL Normal 9.0-12.7 [facility] l Platelets (Bld) [#/Vol] 286 10*3/uL Normal 150-400 [facility] RBC (Bld) [#/Vol] 3.92 10*6/uL Normal 3.90-5.20 [facility] WBC (Bld) [#/Vol] 11.66 10*3/uL High 3.70-11.00 [facility] CNDSon 10-04-2020 CNDS HNO ID: [id number] Author: Olga Freedman PA-C Service: Orthopaedic Surgery Author Type: Physician American Sign Language Teacher Type: Discharge Summary Filed: 10/04/2020 10:35 AM [...] Provider Location Dept Phone 10/25/2020 10:00 AM ALEAMENDEZ Colleen [phone] 11/15/2020 11:30 AM LASHELL BEST Yvonne Macias [phone] This patient underwent major orthopedic surg (more content not included)... [facility] NURSING PROGon 10-04-2020 NURSING PROG HNO ID: [id number] Author: Clarita Fields, RN Service: Nursing Author Type: Registered Nurse Type: Nursing Progress Note Filed: 10/04/2020 12:47 PM Note Text: Nursing Progress Note Patient Name: Julia Villeda Patient Location: [place] [address] [address] Daily Note: 0900 Pt resting- rt knee [...] This note was completed by: Clarita Fields [facility] THERAPY NTon 10-04-2020 THERAPY NT HNO ID: [id number] Author: Amy Douglas, PT Service: Physical Therapy Author Type: Physical Therapist Type: Therapy (PT/OT/Speech/Resp) Filed: 10/04/2020 12:38 PM Note Text: Physical Therapy Evaluation SERVICE DATE: 10/04/2020 SERVICE TIME: 1109 to 1149 ROOM: [place] [address] Recommended Discharge Disposition: Home PT Anticipated Discharge [...] Environment Patient Lives With: Spouse Assistance Available: pensionholder information clerk (spouse works days, hoping to do some [...] Diagnosis: Reduced mobility-other Interventions Provided: Evaluation;Therapeutic Exercise (60070);Gait Training (00381) $ Evaluation-Low (40320) Billed Units: 1 unit Therapeutic Exercise (04593) Treatment Minutes: 10 $ Therapeutic Exercise (63625) Billed Units: 1 unit Pt performed in [...] holding times as listed above. Gait Training (37883) Treatment Minutes: 15 $ Gait Training (29002) Billed Units: 1 unit Kadeem (more content not included)... Normal [facility] THERAPY NT HNO ID: [id number] Author: Amber Skelton, OT/L Service: Occupational Therapy Author Type: Occupational Therapist Type: Therapy (PT/OT/Speech/Resp) Filed: 10/04/2020 10:17 AM Note Text: Occupational Therapy Evaluation SERVICE DATE: 10/04/2020 SERVICE TIME: 817 to 919 ROOM: [place] [address] Recommended Discharge Disposition: Home Recommended Discharge Disposition [...] Environment Patient Lives With: Spouse Assistance Available: pensionholder information clerk Entry To Home: Stairs Number Of Stairs [...] symptoms and signs-other Interventions Provided: Evaluation;Therapeutic Activity (38902);Self [facility] Management (40232) $ Evaluation-Low (73534) Billed Units: 1 unit Therapeutic Activity (49862) Treatment Minutes: 10 $ Therapeutic Activity (15685) Billed Units: 1 unit Self [facility] Managemen (more content not included)... Normal [facility] ANES POSTPROC EVALon 021 ANES POSTPROC EVAL HNO ID: [id number] Author: Akua Garcia MD Service: Anesthesiology Author [...] October 03, 2020 TIME: 4:00 PM CSN: [id number] [facility] ANES PRE-OPon 10-03-2020 ANES PRE-OP HNO ID: [id number] Author: Eliezer Child MD Service: Anesthesiology Author Type: Anesthesiologist [...] October 03, 2020 TIME: 1:19 PM CSN: [id number] [facility] BRIEF OP NOTon 10-03-2020 BRIEF OP NOT HNO ID: [id number] Author: Best Valera MD Service: Orthopaedic Surgery Author Type: Physician Type: Brief Op Note Filed: 10/03/2020 3:39 PM Note Text: TOTAL KNEE ARTHROPLASTY BRIEF OPERATIVE / PROCEDURE NOTE LOG ID: [id number] Surgery/Procedure Date: 10/03/2020 Incision/Procedure Start Time: 2:01 PM Incision Close/Procedure End Time: 3:33 PM Surgeon(s)/Proceduralist( s) and American Sign Language Teacher(s): Surgeon(s) and Role: * Best Valera MD - Primary Physician American Sign Language Teacher: Irma Vines PA-C; Mendez Cosby PA-C Procedure(s): Procedure(s) (LRB): ARTHROPLASTY REPLACE JOINT TOTAL KNEE (Right) Anesthesia: Spinal Peripheral Block Type: Saphenous/Adductor Approach: Median parapatellar Findings: OA Tourniquet: 44Min at 300 mm Hg Estimated Blood Loss: 75 mls Specimens: None Complications: None Implant: Implant Name Type Inv. Item Serial No. [employer] Lot No. LRB No. Used Action INSERT TRIATHLON 4 9MM TIBIAL BEARING CONDYLAR STABILIZE STERILE KNEE - [id number] Joint - Knee INSERT TRIATHLON 4 9MM TIBIAL BEARING CONDYLAR STABILIZE STERILE KNEE [facility] [id number] Right 1 Implanted COMPONENT TRITANIUM 35MM METAL 10MM PATELLAR ASYMMETRIC KNEE - [id number] Joint - Knee COMPONENT TRITANIUM 35MM METAL 10MM PATELLAR ASYMMETRIC KNEE [facility] [id number] Right 1 Implanted COMPONENT TRIATHLON 4 PA FEMORAL CRUCIATE RETAIN BEAD KNEE RIGHT - [id number] Joint - Knee COMPONENT TRIATHLON 4 PA FEMORAL CRUCIATE RETAIN BEAD KNEE RIGHT [facility] [id number] Right 1 Implanted BASEPLATE TRIATHALON 4 TRITANIUM TIBIAL COATED STERILE KNEE - [id number] Joint - Knee BASEPLATE TRIATHALON 4 TRITANIUM TIBIAL COATED STERILE KNEE [facility] [id number] Right 1 Implanted PIN 1/8IN FLUTE SQUARE STAINLESS STEEL 3.5IN FIXATION STERILE KNEE - [id number] Pin PIN 1/8IN FLUTE SQUARE STAINLESS STEEL 3.5IN FIXATION STERILE KNEE [facility] [id number] Right 1 Non-Implant Bearing Surface: Fixed Fixation: Cementless SSI Risk Factors: Obesity, BMI > 35 Constraint: Cruciate Retaining Other: None Pre-Op/Pre-Procedure Diagnosis: OA Post-Op/Post-Procedure Diagnosis: OA Weight Bearing Status: Full Weight Bearing SIGNATURE: Best Valera MD PATIENT NAME: Julia Villeda DATE: October 03, 2020 TIME: 3:28 PM Normal [facility] OPERATIVE NOon 10-03-2020 OPERATIVE NO HNO ID: [id number] Author: Best Valera MD Service: Orthopaedic Surgery Author Type: Physician Type: Operative Report Filed: 10/04/2020 1:42 PM Note Text: [facility] - Operative Report JULIA VILLEDA : 1950 AGE: 70. SEX: F PATIENT TYPE: A HOSP SVC: OROR LOCATION: [facility] ATTENDING PHYSICIAN: Best Valera MD CSN NUMBER: [id number] DATE OF SURGERY/PROCEDURE: 10/03/2020 INCISION/PROCEDURE START TIME: 1401 hours. INCISION CLOSE/PROCEDURE END TIME: 1533 hours. PREOPERATIVE DIAGNOSIS: Right knee primary localized osteoarthritis. POSTOPERATIVE DIAGNOSIS: Right knee primary localized osteoarthritis. SURGEON: Best Valera MD INSIDE METER TESTER: 1. Irma Vines PA-C. No qualified resident available. Ms. Vines assisted in positioning the patient, retraction, and closure of surgical incision. 2. Mendez Cosby PA-C. Best Cosby assisted in positioning the patient, retraction, [...] None. SPECIMENS: None. COMPLICATIONS: None apparent. IMPLANTS: [place] Triathlon cementless knee system. A size #4 [...] this p (more content not included)... Normal [facility] THERAPY NTon 10-03-2020 THERAPY NT HNO ID: [id number] Author: Amy Douglas, PT Service: Physical Therapy Author Type: Physical Therapist Type: Therapy (PT/OT/Speech/Resp) Filed: 10/03/2020 5:01 PM Note Text: PHYSICAL THERAPY MISSED VISIT SERVICE DATE: 10/03/2020 SERVICE TIME: 1658 to 1658 ROOM: AV Surgery (AV SURGERY) Attempted Evaluation. [...] DATE: October 03, 2020 TIME: 5:00 PM [facility] PreOp/PreProc COVIDon 2020 SARS-CoV-2 (COVID-19) RNA CAITLIN+probe Ql (Unsp spec) UPPER RESPIRATORY TRACT SWAB Normal [facility] Comment on above: Performed By: #### P OCOVD ####[facility] [address] [place], [place] [phone] SARS-CoV-2 (COVID-19) RNA CAITLIN+probe Ql (Unsp spec) Negative for COVID19 (SARS CoV2) by RT-PCR or equivalent method. Normal Negative for COVID19 (SARS CoV2) by RT-PCR or equivalent method. [facility] Comment on above: Result Comment: This test was developed and its performance characteristics determined by [facility]'s [facility] [place]. This test has been authorized by FDA under an Emergency Use Authorization (EUA). This test has been validated in accordance with the FDA's Guidance Document Policy for Diagnostics Testing in Laboratories Certified to Perform High Complexity Testing under CLIA prior to Emergency use Authorization for Coronavirus Disease 2019 during the Public Health Emergency issued on August 01, 2019. Test performed by [facility], [facility] Pathology and Laboratory Medicine [place], [address] [place], [place] [address]. Performed By: #### P OCOVD ####[facility] [place], [place] [phone] Kimberly 09-22-2020 CNPN Telephone (ORAVON) ----- JULIA VILLEDA ([id number]) 1950 F Date Time Provider Department 09/22/20 BEST VALERA During your visit today, we recorded the following information about you: Ricardo Allyson Kim 09/22/2020 10:56 AM Signed Patient returning call to providers office. Patient can be reached at the below number. Phone number to be reached at is [phone] Ok to leave a detailed message? Yes [...] by ANSHUL BRANCH MA on 09/22/20 Normal [facility] APTTon 09-12-2020 aPTT Coag (Bld) [Time] 30.5 s Normal 23.0-32.4 [facility] Comment on above: Result Comment: Unfr [...] laboratory APTT reagent in use throughout the [facility]. Performed By: #### P TT, BMP, PT, CBCDIF ####[address] [phone] Basic Metabolic Panlon 09-12 Anion gap [Moles/Vol] 11 mmol/L Normal 9-18 [facility] Comment on above: Performed By: #### P TT, BMP, PT, CBCDIF ####[address] [phone] Calcium [Mass/Vol] 9.8 mg/dL Normal 8.5-10.2 [facility] Comment on above: Performed By: #### P TT, BMP, PT, CBCDIF ####[address] [phone] Chloride [Moles/Vol] 101 mmol/L Normal 97-105 [facility] Comment on above: Performed By: #### P TT, BMP, PT, CBCDIF ####[address] [phone] CO2 [Moles/Vol] 27 mmol/L Normal 22-30 [facility] Comment on above: Performed By: #### P TT, BMP, PT, CBCDIF ####[address], [place] [phone] Creatinine [Mass/Vol] 0.73 mg/dL Normal 0.58-0.96 [facility] Comment on above: Performed By: #### P TT, BMP, PT, CBCDIF ####[address] [phone] eGFR- Amer. >60 Normal [facility] [place] Comment on above: Performed By: #### P TT, BMP, PT, CBCDIF ####[address] [phone] eGFR-All Other Races >60 Normal [facility] Comment on above: Result Comment: eGFR (Estimated [...] By: #### P TT, BMP, PT, CBCDIF ####[address] [phone] Glucose [Mass/Vol] 93 mg/dL Normal 74-99 [facility] [place] Comment on above: Result Comment: The [employer] Diabetes [employer] (ADA) provides guidance for cutoff [...] Standards of Medical Care in Diabetes 2016, [employer]. Diabetes Care. 2016.39(Suppl 1). Performed By: #### P TT, BMP, PT, CBCDIF ####[place] [address] [place], [place] [phone] Potassium [Moles/Vol] 4.2 mmol/L Normal 3.7-5.1 [facility] Comment on above: Performed By: #### P TT, BMP, PT, CBCDIF ####[address] [phone] Sodium [Moles/Vol] 139 mmol/L Normal 136-144 [facility] [place] Comment on above: Performed By: #### P TT, BMP, PT, CBCDIF ####[address] [phone] Urea nitrogen [Mass/Vol] 15 mg/dL Normal 7-21 [facility] Comment on above: Performed By: #### P TT, BMP, PT, CBCDIF ####[address] [phone] CBC and Differentialon 09-12 Abs Baso 0.04 k/uL Normal <0.11 [facility] Comment on above: Performed By: #### P TT, BMP, PT, CBCDIF ####[address] [phone] Abs [place] 0.61 k/uL Normal <0.87 [facility] Comment on above: Performed By: #### P TT, BMP, PT, CBCDIF ####[address] [phone] Abs Neut 3.86 k/uL Normal 1.45-7.50 [facility] Comment on above: Performed By: #### P TT, BMP, PT, CBCDIF ####[address] [place], [place] [phone] Absolute nRBC <0.01 Normal <0.01 [facility] Comment on above: Performed By: #### P TT, BMP, PT, CBCDIF ####[place] [address] [phone] Basophils/100 WBC (Bld) 0.6 % Normal [facility] Comment on above: Performed By: #### P TT, BMP, PT, CBCDIF ####[place] [address] [phone] DTYPE Auto Diff Normal [facility] Comment on above: Performed By: #### P TT, BMP, PT, CBCDIF ####[place] [address] [address] [phone] Eosinophils (Bld) [#/Vol] 0.43 10*3/uL Normal <0.46 [facility] Comment on above: Performed By: #### P TT, BMP, PT, CBCDIF ####[place] [address] [address] [place] [phone] Eosinophils/100 WBC (Bld) 6.7 % Normal [facility] Comment on above: Performed By: #### P TT, BMP, PT, CBCDIF ####[place] [address] [address] [phone] Erythrocyte distribution width (RBC) [Ratio] 13.0 % Normal 11.5-15.0 [facility] Comment on above: Performed By: #### P TT, BMP, PT, CBCDIF ####[place] [address] [address] [phone] Hematocrit (Bld) [Volume fraction] 39.5 % Normal 36.0-46.0 [facility] Comment on above: Performed By: #### P TT, BMP, PT, CBCDIF ####[place] [address] [phone] Hemoglobin (Bld) [Mass/Vol] 12.4 g/dL Normal 11.5-15.5 [facility] Comment on above: Performed By: #### P TT, BMP, PT, CBCDIF ####[place] [address], [place] [phone] Lymphocytes (Bld) [#/Vol] 1.48 10*3/uL Normal 1.00-4.00 [facility] Comment on above: Performed By: #### P TT, BMP, PT, CBCDIF ####[place] [address], [place] [phone] Lymphocytes/100 WBC (Bld) 23.0 % Normal [facility] Comment on above: Performed By: #### P TT, BMP, PT, CBCDIF ####[place] [address] [address], [place] [phone] MCH 27.0 pG Normal 26.0-34.0 [facility] Comment on above: Performed By: #### P TT, BMP, PT, CBCDIF ####[place] [address] [place] [phone] MCHC (RBC) [Mass/Vol] 31.4 g/dL Normal 30.5-36.0 [facility] Comment on above: Performed By: #### P TT, BMP, PT, CBCDIF ####[place] [address], [place] [phone] MCV (RBC) [Entitic vol] 85.9 fL Normal 80.0-100.0 [facility] Comment on above: Performed By: #### P TT, BMP, PT, CBCDIF ####[place] [address], [place] [phone] Monocytes/100 WBC (Bld) 9.5 % Normal [facility] Comment on above: Performed By: #### P TT, BMP, PT, CBCDIF ####[place] [address] [address], [place] [phone] Neutrophils/100 WBC (Bld) 60.2 % Normal [facility] Comment on above: Performed By: #### P TT, BMP, PT, CBCDIF ####[place] [address], [place] [phone] NRBCs 0.0 /100 WBC Normal 0 [facility] Comment on above: Performed By: #### P TT, BMP, PT, CBCDIF ####[place] [address], [place] [phone] Platelet mean volume (Bld) [Entitic vol] 10.3 fL Normal 9.0-12.7 [facility] Comment on above: Performed By: #### P TT, BMP, PT, CBCDIF ####[place] [address], [place] [phone] Platelets (Bld) [#/Vol] 282 10*3/uL Normal 150-400 [facility] Comment on above: Performed By: #### P TT, BMP, PT, CBCDIF ####[address] [phone] RBC (Bld) [#/Vol] 4.60 10*6/uL Normal 3.90-5.20 [facility] Comment on above: Performed By: #### P TT, BMP, PT, CBCDIF ####[place] [address], [place] [phone] WBC (Bld) [#/Vol] 6.44 10*3/uL Normal 3.70-11.00 [facility] Comment on above: Performed By: #### P TT, BMP, PT, CBCDIF ####[address], [place] [phone] HISTORY PHYSICALon 1 HISTORY PHYSICAL HNO ID: [id number] Author: Jailene Renner Service: ? Author Type: [...] interfering with activities which include exercise, doing hse advisor, enjoying hobbies, walking and standing for prolonged [...] LPN on 09/12/2020 at 1051. 07/28 08/19 [employer] ALLERGIES Allergen Reactions - Adhesive Tape (Milagro* [...] fevers. Neuro: No history of TIA's, stroke, STILL OPERATOR BATCH OR CONTINUOUS tumor, impaired sensorium, hemiplegia, paraplegia or quadraplegia. No neurological symptoms or problems. Respiratory: Positive for VONDA- CPAP at night No history of current cough or dyspnea, or pneumonia in the past 6 weeks Cardiovascular: Positive for: Hypertension no history of angina, CHF, [place], cardiac surgery or stents. Denies rest pain, gangrene or revascularization/amputat ion for PVD GI: No history of GI symptoms or problems. No history of esophageal varices, recent ascites, or ETOH greater than 2 drinks per day. : No history of dysuria, frequency or incontinence,, stones or chronic kidney disease (more content not included)... Normal [facility] Protimeon 09-12-2020 PT INR 1.0 Normal 0.9-1.3 [facility] Comment on above: Result Comment: Luz min K Antagonist (VKA) Therapeutic Range: INR 2 to 3 (Target INR of 2.5) Note: For patients treated with VKA drugs, such as warfarin, the [employer] 2012 Guideline recommends [...] to 3.5 (target INR of 3). Patrick STROUD, et al. Chest 2012, 141:7S-47S Nicolette RA, et al. JAC 2017, 70: 252-289 Performed By: #### P TT, BMP, PT, CBCDIF ####[facility] [address] [place], [place] [phone] PT Sec 10.6 sec Normal 9.7-13.0 [facility] Comment on above: Performed By: #### P TT, BMP, PT, CBCDIF ####[facility] [address] [place], [place] [phone] Type and SCR (30D)on 021 ABO/RH(D) Positive Normal [facility] Urinalysis with Microscopico n 09-12-2020 Bilirubin, Urine Negative Normal Negative [facility] Comment on above: Performed By: #### U AWMIC ####[facility] [place], [place] [phone] Clarity (U) Clear Normal Clear [facility] Comment on above: Performed By: #### U AWMIC ####[facility] [place] [phone] Color (U) Light Yellow Critically abnormal Yellow [facility] Comment on above: Performed By: #### U AWMIC ####[facility] [phone] Comments SEE COMMENT Normal [facility] Comment on above: Result Comment: N/A Performed By: #### U AWMIC ####[facility] [place] [phone] Epithelial cells LM Ql (Urine sed) SEE COMMENT Normal [facility] Comment on above: Result Comment: Few Squamous Epithelial Cells Performed By: #### U AWMIC ####[place] [address] [place] [phone] Glucose Ql (U) Negative Normal Negative [facility] Comment on above: Performed By: #### U AWMIC ####[facility] [phone] Hemoglobin/Blood,Ur Negative Normal Negative [facility] Comment on above: Performed By: #### U AWMIC ####[facility] [address] [place] [phone] Ketones Ql (U) Negative Normal Negative [facility] Comment on above: Performed By: #### U AWMIC ####[facility] [phone] Leukest Negative Normal Negative [facility] Comment on above: Performed By: #### U AWMIC ####[facility] [address] [place] [phone] Nitrite Ql (U) Negative Normal Negative [facility] Comment on above: Performed By: #### U AWMIC ####[facility] [place] [phone] pH (U) 7.0 [pH] Normal 5.0-8.0 [facility] Comment on above: Performed By: #### U AWMIC ####[place] [address] [place] [phone] Protein, Urine Negative Normal Negative [facility] Comment on above: Performed By: #### U AWMIC ####[place] [address] [place] [phone] RBC 0-3 Normal 0-3 [facility] Comment on above: Performed By: #### U AWMIC ####[place] [phone] Specific [place], Ur 1.011 Normal 1.005-1.030 [facility] Comment on above: Performed By: #### U AWMIC ####[place] [address] [place] [place] [phone] Urine Nikolay Comment SEE COMMENT Normal [facility] Comment on above: Result Comment: N/A Performed By: #### U AWMIC ####[place] [address] [place] [phone] Urobilinogen (U) [Mass/Vol] Negative Normal Negative [facility] Comment on above: Performed By: #### U AWMIC ####[place] [address] [place] [phone] WBC 0-5 Normal 0-5 [facility] Comment on above: Performed By: #### U AWMIC ####[place] [address] [place] [phone] Urine Cultureon 09-12-2020 Bacteria identified Cx Nom (U) Sp. Request/Comment: - Specimen received in preservative Culture Result - 10,000 - <50,000 CFU/ml Normal urogenital ritesh Normal [facility] Comment on above: Performed By: #### U RCUL ####[facility] [address], [place] [phone] XR Knee - right 4 Viewson IMPRESSION: Right knee osteoarthritis without significant change since 10/21/2019. No acute osseous findings. Business Support: [employer] Transcribe Date/Time: Jul 12 2020 12:38P Dictated by : DINORAH MANCILLA MD This examination was interpreted and the report reviewed and electronically signed by: DINORAH MANCILLA MD on Jul 12 2020 12:41PM [facility] DIVISION OF RADIOLOGY * * *Final Report* * * DATE OF EXAM: Jul 12 2020 10:08AM LZX 5203 - XR KNEE 4V AP/PA BOTH+LAT/CASSIA RT / PROCEDURE REASON: Pain * * * * Physician Interpretation * * * * EXAMINATION: XR KNEE 4V AP/PA BOTH+LAT/CASSIA RT PATIENT/TECHNOLOGIST PROVIDED HISTORY: right knee pain since April 2020 after hyperextending it CLINICAL INFORMATION ( PROVIDED BY ORDERING CLINICIAN) : Pain TECHNIQUE: XR KNEE 4V AP/PA BOTH+LAT/CASSIA RT Laterality: RIGHT Number of different views (projections): 4 M: XB_1 COMPARISON: 10/29/2019 RESULT: No acute fracture or dislocation. Moderate to severe lateral compartment joint space narrowing with subchondral sclerosis/cystic change is similar to the prior exam. Minimal medial and patellofemoral compartment joint space narrowing are also unchanged. Small joint effusion. No other significant abnormality. DIVISION OF RADIOLOGY Provider, [facility] - 07/12/2020 * * *Final Report* * * DATE OF EXAM: Jul 12 2020 10:08AM LZX 5203 - XR KNEE 4V AP/PA BOTH+LAT/CASSIA RT / PROCEDURE REASON: Pain * * * * Physician Interpretation * * * * EXAMINATION: XR KNEE 4V AP/PA BOTH+LAT/CASSIA RT PATIENT/TECHNOLOGIST PROVIDED HISTORY: right knee pain since April 2020 after hyperextending it CLINICAL INFORMATION ( PROVIDED BY ORDERING CLINICIAN) : Pain TECHNIQUE: XR KNEE 4V AP/PA BOTH+LAT/CASSIA RT Laterality: RIGHT Number of different views (projections): 4 M: XB_1 COMPARISON: 10/29/2019 RESULT: No acute fracture or dislocation. Moderate to severe lateral compartment joint space narrowing with subchondral sclerosis/cystic change is similar to the prior exam. Minimal medial and patellofemoral compartment joint space narrowing are also unchanged. Small joint effusion. No other significant abnormality. IMPRESSION IMPRESSION: Right knee osteoarthritis without significant change since 10/21/2019. No acute osseous findings. Business Support: [employer] Transcribe Date/Time: Jul 12 2020 12:38P Dictated by : DINORAH MANCILLA MD This examination was interpreted and the report reviewed and electronically signed by: DINORAH MANCILLA MD on Jul 12 2020 12:41PM EST [facility] Radiology Study observation (narrative) [facility] XR Knee - right 4 ViewsOrder ed By: Ccf Provider on 07-12-2020 [facility] Vital Signs Date Time Vital Sign Value Performing Clinician Facility 06-29-2024 09:23-0500 Body height 171.5 cm Mary Alice Tatum MD Work Phone: [place] 06-29-2024 09:23-0500 Body mass index (BMI) [Ratio] 36.73 kg/m2 Mary Alice Tatum MD Work Phone: [place] 06-29-2024 09:23-0500 Body weight 107.96 kg Mary Alice Tatum MD Work Phone: [place] 06-29-2024 09:23-0500 Diastolic blood pressure 80 mm[Hg] Mary Alice Tatum MD Work Phone: [place] 06-29-2024 09:23-0500 Heart rate 79 /min Mary Alice Tatum MD Work Phone: [place] 06-29-2024 09:23-0500 Systolic blood pressure 110 mm[Hg] Mary Alice Tatum MD Work Phone: [place] 04-20-2024 11:29-0500 Body height 168.9 cm Frank Guzman DO Work Phone: [facility] 04-20-2024 11:29-0500 Body mass index (BMI) [Ratio] 36.88 kg/m2 Frank Guzman DO Work Phone: [facility] 04-20-2024 11:29-0500 Body weight 105.23 kg Frank Guzman DO Work Phone: [facility] 04-20-2024 11:29-0500 Diastolic blood pressure 78 mm[Hg] Frank Guzman DO Work Phone: [facility] 04-20-2024 11:29-0500 Systolic blood pressure 134 mm[Hg] Frank Guzman DO Work Phone: [facility] 02-24-2024 15:17-0400 Body height 171.5 cm Mary Alice Tatum MD Work Phone: [place] 02-24-2024 15:17-0400 Body mass index (BMI) [Ratio] 34.72 kg/m2 Mary Alice Tatum MD Work Phone: [place] 02-24-2024 15:17-0400 Body weight 102.06 kg Mary Alice Tatum MD Work Phone: [place] 02-24-2024 15:17-0400 Diastolic blood pressure 64 mm[Hg] Mary Alice Tatum MD Work Phone: [place] 02-24-2024 15:17-0400 Heart rate 62 /min Mary Alice Tatum MD Work Phone: [place] 02-24-2024 15:17-0400 Systolic blood pressure 120 mm[Hg] Mary Alice Tatum MD Work Phone: [place] 02-24-2024 10:47-0400 Body height 170.18 cm DO Nancy Petteaick Work Phone: [facility] 02-24-2024 10:47-0400 Body mass index (BMI) [Ratio] 34.4 kg/m2 DO Nancy Petznick Work Phone: [facility] 02-24-2024 10:47-0400 Body weight 99.79 kg DO Nancy Petznick Work Phone: [facility] 02-11-2024 13:22-0400 Body height 172.1 cm Nancy Petznick DO Work Phone: [facility] 02-11-2024 13:22-0400 Body mass index (BMI) [Ratio] 34.92 kg/m2 Nancy Petznick DO Work Phone: [facility] 02-11-2024 13:22-0400 Body temperature 98.29 [degF] Nancy Petznick DO Work Phone: [facility] 02-11-2024 13:22-0400 Body weight 103.42 kg Nancy Petznick DO Work Phone: [facility] 02-11-2024 13:22-0400 Diastolic blood pressure 74 mm[Hg] Nancy Petznick DO Work Phone: [facility] 02-11-2024 13:22-0400 Heart rate 64 /min Nancy Petznick DO Work Phone: [facility] 02-11-2024 13:22-0400 SaO2% (BldA) [Mass fraction] 98 % Nancy Petznick DO Work Phone: [facility] 02-11-2024 13:22-0400 Systolic blood pressure 130 mm[Hg] Nancy Petznick DO Work Phone: [facility] 02-05-2024 23:07-0400 Diastolic blood pressure 66 mm[Hg] DO Nancy Petznick Work Phone: [facility] 02-05-2024 23:07-0400 Heart rate 71 /min DO Nancy Petznick Work Phone: [facility] 02-05-2024 23:07-0400 Respiratory rate 16 /min DO Nancy Petznick Work Phone: [facility] 02-05-2024 23:07-0400 SaO2% (BldA) [Mass fraction] 98 % DO Nancy Petznick Work Phone: [facility] 02-05-2024 23:07-0400 Systolic blood pressure 148 mm[Hg] DO Nancy Petznick Work Phone: [facility] 02-05-2024 17:39-0400 Body height 171.45 cm DO Nancy Jha Work Phone: [facility] 02-05-2024 17:39-0400 Body temperature 98.7 [degF] DO Nancy Jha Work Phone: [facility] 02-05-2024 17:39-0400 Body weight 99.79 kg DO Nancy Jha Work Phone: [facility] 09-30-2023 10:28-0400 Diastolic blood pressure 84 mm[Hg] Mary Alice Tatum MD Work Phone: [place] 09-30-2023 10:28-0400 Systolic blood pressure 140 mm[Hg] Mary Alice Tatum MD Work Phone: [place] 09-30-2023 09:56-0400 Body height 170.2 cm Mary Alice Tatum MD Work Phone: [place] 09-30-2023 09:56-0400 Body mass index (BMI) [Ratio] 37.78 kg/m2 Mary Alice Tatum MD Work Phone: [place] 09-30-2023 09:56-0400 Body weight 109.41 kg Mary Alice Tatum MD Work Phone: [place] 09-30-2023 09:56-0400 Heart rate 76 /min Mary Alice Tatum MD Work Phone: [place] 09-25-2023 10:49-0400 Diastolic blood pressure 86 mm[Hg] Crista 1 [place] 09-25-2023 10:49-0400 Heart rate 75 /min Crista 1 [facility] 09-25-2023 10:49-0400 Systolic blood pressure 128 mm[Hg] Crista 1 [place] 08-26-2023 11:34-0400 Body height 171.5 cm Mary Alice Tatum MD Work Phone: [place] 08-26-2023 11:34-0400 Body mass index (BMI) [Ratio] 36.42 kg/m2 Mary Alice Tatum MD Work Phone: [place] 08-26-2023 11:34-0400 Body weight 107.05 kg Mary Alice Tatum MD Work Phone: [place] 08-26-2023 11:34-0400 Diastolic blood pressure 80 mm[Hg] Mary Alice Tatum MD Work Phone: [place] 08-26-2023 11:34-0400 Heart rate 86 /min Mary Alice Tatum MD Work Phone: [place] 08-26-2023 11:34-0400 Systolic blood pressure 130 mm[Hg] Mary Alice Tatum MD Work Phone: [place] 08-26-2023 09:54-0400 Body height 172.72 cm DO Nancy Petznick Work Phone: [facility] 08-26-2023 09:54-0400 Body mass index (BMI) [Ratio] 35.7 kg/m2 DO Nancy Petznick Work Phone: [facility] 08-26-2023 09:54-0400 Body weight 106.59 kg DO Nancy Petznick Work Phone: [facility] 08-26-2023 09:54-0400 Heart rate 86 /min DO Nancy Petznick Work Phone: [facility] 08-26-2023 09:54-0400 SaO2% (BldA) [Mass fraction] 97 % DO Nancy Petznick Work Phone: [facility] 02-27-2023 10:15-0400 Body height 172.72 cm Herman Chang II Other [employer] Other 02-27-2023 10:15-0400 Body mass index (BMI) [Ratio] 35.7 kg/m2 Herman Chang II Other [facility] [employer] Other 02-27-2023 10:15-0400 Body weight 106.51 kg Herman Chang II Other [facility] [employer] Other 02-11-2023 15:10-0400 Diastolic blood pressure 56 mm[Hg] DO Nancy Petznick Work Phone: [facility] 02-11-2023 15:10-0400 Heart rate 59 /min DO Nancy Petznick Work Phone: [facility] 02-11-2023 15:10-0400 Respiratory rate 18 /min DO Nancy Petznick Work Phone: [facility] 02-11-2023 15:10-0400 SaO2% (BldA) [Mass fraction] 95 % DO Nancy Petznick Work Phone: [facility] 02-11-2023 15:10-0400 Systolic blood pressure 121 mm[Hg] DO Nancy Petznick Work Phone: [facility] 02-11-2023 12:19-0400 Body temperature 98 [degF] DO Nancy Petznick Work Phone: [facility] 02-11-2023 11:34-0400 Inhaled oxygen flow rate 8 L/min DO Nancy Petznick Work Phone: [facility] 02-11-2023 10:29-0400 Body height 171.45 cm DO Nancy Petznick Work Phone: [facility] 02-11-2023 10:29-0400 Body mass index (BMI) [Ratio] 36 kg/m2 DO Nancy Petznick Work Phone: [facility] 02-11-2023 10:29-0400 Body weight 106 kg DO Nancy Petznick Work Phone: [facility] 01-02-2023 10:15-0400 Body height 172.72 cm Herman Chang II Other [employer] Other 01-02-2023 10:15-0400 Body mass index (BMI) [Ratio] 35.27 kg/m2 Herman Chang II Other [employer] [facility] [employer] Other 01-02-2023 10:15-0400 Body weight 105.24 kg Herman Chang II Other [facility] [employer] Other 10-17-2022 18:30-0400 Diastolic blood pressure 77 mm[Hg] DO Nancy Petznick Work Phone: [facility] 10-17-2022 18:30-0400 Heart rate 80 /min DO Nancy Petznick Work Phone: [facility] 10-17-2022 18:30-0400 Respiratory rate 18 /min DO Nancy Petznick Work Phone: [facility] 10-17-2022 18:30-0400 SaO2% (BldA) [Mass fraction] 97 % DO Nancy Petznick Work Phone: [facility] 10-17-2022 18:30-0400 Systolic blood pressure 149 mm[Hg] DO Nancy Petznick Work Phone: [facility] 10-17-2022 16:30-0400 Diastolic blood pressure 77 mm[Hg] DO Nnacy Petznick Work Phone: [facility] 10-17-2022 16:30-0400 Heart rate 72 /min DO Nancy Petznick Work Phone: [facility] 10-17-2022 16:30-0400 Respiratory rate 18 /min DO Nancy Petznick Work Phone: [facility] 10-17-2022 16:30-0400 SaO2% (BldA) [Mass fraction] 97 % DO Nancy Petznick Work Phone: [facility] 10-17-2022 16:30-0400 Systolic blood pressure 164 mm[Hg] DO Nancy Hansonick Work Phone: [facility] 10-17-2022 14:59-0400 Body height 171.45 cm DO Nancy Hansonick Work Phone: [facility] 10-17-2022 14:59-0400 Body temperature 97.5 [degF] DO Nancy Jha Work Phone: [facility] 10-17-2022 14:59-0400 Body weight 106.15 kg DO Nancy Jha Work Phone: [facility] 06-20-2022 15:30-0500 Body height 172.72 cm Herman Dodgeisle II Other [employer] [facility] [employer] Other 06-20-2022 15:30-0500 Body mass index (BMI) [Ratio] 35.27 kg/m2 Herman Dodgeisle II Other [employer] [facility] [employer] Other 06-20-2022 15:30-0500 Body weight 105.24 kg Herman Dodgeisle II Other [employer] Other 04-20-2021 14:30-0500 Body height 172.72 cm Maryra Alicea Other [employer] Other 04-20-2021 14:30-0500 Body mass index (BMI) [Ratio] 35.58 kg/m2 Mary Nixon Other [employer] Other 04-20-2021 14:30-0500 Body temperature 95.5 [degF] Mary Nixon Other [employer] Other 04-20-2021 14:30-0500 Body weight 106.14 kg Mary Nixon Other [employer] Other 04-20-2021 14:30-0500 Diastolic blood pressure 84 mm[Hg] Maryra Alicea Other [employer] Other 04-20-2021 14:30-0500 SaO2% (BldA) [Mass fraction] 100 % Mary Alicea Other [employer] Other 04-20-2021 14:30-0500 Systolic blood pressure 143 mm[Hg] Maryra Alicea Other [employer] Other Encounters Encounter Date Encounter Type Care Provider Facility Start: 07-01-2024 End: 07-01-2024 ambulatory JACI BRANDT Not Available Start: 07-01-2024 End: 07-01-2024 Postop follow up visit related to original px Jaci Brandt MD Work Phone: [facility] Comment on above: Postoperative care f or cataract (Primary Dx) Start: 07-01-2024 End: 07-01-2024 Darleen Brandt MD Work Phone: [facility] Start: 07-01-2024 End: 07-01-2024 Darleen Brandt MD Work Phone: [facility] Start: 06-29-2024 End: 06-29-2024 Office outpatient visit 25 minutes Mary Alice Tatum MD Work Phone: [facility] Comment on above: Pre-operative cleara nce; Primary hypertension; History of PSVT (paroxysmal supraventricular tachycardia); BMI 36.0-36.9,adult; High risk medication use; Sleep apnea treated with continuous positive airway pressure (CPAP); Never smoked tobacco; RBBB; Bradley's disease Start: 06-29-2024 End: 06-29-2024 Preoperative state Mary Alice Tatum MD Work Phone: [place] Start: 06-29-2024 End: 06-29-2024 ambulatory [facility] Start: 06-29-2024 End: 06-29-2024 Encounter for other preprocedural examination [facility] Start: 06-24-2024 End: 06-24-2024 Bamboo flowsheet Jaci Brandt MD Work Phone: [facility] Start: 06-24-2024 End: 06-24-2024 Bamboo flowsheet Jaci Brandt MD Work Phone: [facility] Start: 06-24-2024 End: 06-24-2024 Postop follow up visit related to original px Jaci Brandt MD Work Phone: [facility] Comment on above: Postoperative care f or cataract (Primary Dx) Start: 06-24-2024 End: 06-24-2024 ambulatory JACI BRANDT Not Available Start: 06-18-2024 End: 06-18-2024 Bamboo flowsheet Jaci Brandt MD Work Phone: [facility] Start: 06-18-2024 End: 06-18-2024 Bamboo flowsjudy Brandt MD Work Phone: [facility] Start: 06-18-2024 End: 06-18-2024 Postop follow up visit related to original px Jaci Brandt MD Work Phone: [facility] Comment on above: Postoperative care f or cataract (Primary Dx) Start: 06-18-2024 End: 06-18-2024 ambulatory JACI BRANDT Not Available Start: 06-05-2024 End: 06-05-2024 Patient encounter procedure Nancy Jha DO Work Phone: [facility] Start: 06-05-2024 End: 06-05-2024 ambulatory Nancy Jha Facility:[facility] Start: 05-26-2024 End: 05-26-2024 Bamboo flowsjudy Brandt MD Work Phone: [facility] Start: 05-26-2024 End: 05-26-2024 Bamboo flowsheet Jaci Brandt MD Work Phone: [facility] Start: 05-26-2024 End: 05-26-2024 ambulatory JACI BRANDT Not Available Start: 05-21-2024 End: 05-21-2024 Patient encounter procedure Nancy Jha DO Work Phone: [facility] Work Phone: Start: 05-21-2024 End: 05-21-2024 ambulatory Nancy Jha Facility:[facility] Start: 05-20-2024 End: 05-20-2024 Bamboo flowsheet Jaci Brandt MD Work Phone: [facility] Start: 05-20-2024 End: 05-20-2024 Bamboo flowsheet Jaci Brandt MD Work Phone: [facility] Start: 05-20-2024 End: 05-20-2024 Postop follow up visit related to original px Jaci Brandt MD Work Phone: [facility] Comment on above: Postoperative care f or cataract (Primary Dx) Start: 05-20-2024 End: 05-20-2024 ambulatory JACI BRANDT Not Available Start: 05-04-2024 End: 05-04-2024 Bamboo flowsheet Elkin Womack PT Work Phone: [facility] Start: 05-04-2024 End: 05-04-2024 Bamboo flowsheet Elkin Womack PT Work Phone: [facility] Start: 05-04-2024 End: 05-04-2024 ambulatory Elkin Womack PT Work Phone: [facility] Comment on above: Iliotibial band synd haresh, right leg (Primary Dx); Greater trochanteric bursitis of right hip; Right lumbar radiculopathy; History of total hip arthroplasty, right Start: 04-28-2024 End: 04-28-2024 ambulatory Elkin Womack PT Work Phone: [facility] Comment on above: Iliotibial band synd haresh, right leg (Primary Dx); Greater trochanteric bursitis of right hip; Right lumbar radiculopathy; History of total hip arthroplasty, right Start: 04-28-2024 End: 04-28-2024 Bamboo flowsheet Elkin Womack PT Work Phone: [facility] Start: 04-28-2024 End: 04-28-2024 Bamboo flowsheet Elkin Womack PT Work Phone: [facility] Start: 04-22-2024 End: 04-22-2024 Bamboo flowsheet Cassandra Payton PT Work Phone: [facility] Start: 04-22-2024 End: 04-22-2024 Bamboo flowsheet Cassandra Payton PT Work Phone: [facility] Start: 04-22-2024 End: 04-22-2024 ambulatory Cassandra Payton PT Work Phone: [facility] Comment on above: Iliotibial band synd haresh, right leg (Primary Dx); Greater trochanteric bursitis of right hip; Right lumbar radiculopathy; History of total hip arthroplasty, right Start: 04-20-2024 End: 04-20-2024 Patient encounter procedure Frank Guzman DO Work Phone: [facility] Comment on above: Encounter for gyneco logical examination without abnormal finding; Encounter for Papanicolaou smear of vagina; Breast cancer screening by mammogram Start: 04-20-2024 End: 04-20-2024 Patient encounter status Frank Guzman DO Work Phone: [facility] Start: 04-20-2024 End: 04-20-2024 ambulatory FRANK GUZMAN Not Available Start: 04-13-2024 End: 04-13-2024 Bamboo flowsheet Elkin Womack PT Work Phone: [facility] Start: 04-13-2024 End: 04-13-2024 Bamboo flowsheet Elkin Haji Shanta PT Work Phone: [facility] Start: 04-13-2024 End: 04-13-2024 ambulatory Elkin Womack PT Work Phone: [facility] Comment on above: Iliotibial band synd haresh, right leg (Primary Dx); Greater trochanteric bursitis of right hip; Right lumbar radiculopathy; History of total hip arthroplasty, right Start: 04-02-2024 End: 04-02-2024 ambulatory DO Nancy Jha Work Phone: [facility] Work Phone: Start: 04-02-2024 End: 04-02-2024 Patient encounter procedure DO Nancy Jha Work Phone: [facility] Work Phone: Start: 03-31-2024 End: 03-31-2024 Orders Only Best Valera MD Work Phone: [facility] [place] Comment on above: Pain (Primary Dx) Start: 02-24-2024 End: 02-24-2024 Office outpatient visit 25 minutes Mary Alice Tatum MD Work Phone: [facility] Comment on above: Primary hypertension ; Bradley's disease; RBBB; Sleep apnea treated with continuous positive airway pressure (CPAP); Never smoked tobacco; BMI 34.0-34.9,adult; Angina pectoris, unstable (Multi); Shortness of breath; Medication course changed Start: 02-24-2024 End: 02-24-2024 ambulatory [facility] Start: 02-24-2024 End: 02-24-2024 ambulatory DO Nancy Jha Work Phone: [facility] Work Phone: Start: 02-24-2024 End: 02-24-2024 Patient encounter procedure DO Nancy Jha Work Phone: [facility] Work Phone: Start: 02-11-2024 End: 02-11-2024 Office outpatient visit 25 minutes Nancy Jha DO Work Phone: [facility] [place] [phone] Comment on above: SVT (supraventricula r tachycardia) (CMS/HCC) (Primary Dx); Chest pain, unspecified type; Primary hypertension (CMS/HCC); Obesity (BMI 30-39.9); Gastroesophageal reflux disease, unspecified whether esophagitis present Start: 02-11-2024 End: 02-11-2024 ambulatory NANCY HANSONICK Not Available Start: 02-05-2024 End: 02-05-2024 Emergency department patient visit DO Nancy Jha Work Phone: [facility] Work Phone: Start: 01-07-2024 End: 01-07-2024 ambulatory NANCY Slaughter PETTEAICK Not Available Start: 12-30-2023 End: 12-30-2023 ambulatory [facility] Start: 12-16-2023 End: 12-16-2023 ambulatory NANCY Slaughter PETZNICK Not Available Start: 10-16-2023 End: 10-16-2023 ambulatory NANCY Slaughter PETZNICK Not Available Start: 10-02-2023 End: 10-02-2023 [facility] Start: 09-30-2023 End: 09-30-2023 Office outpatient visit 25 minutes Mary Alice Tatum MD Work Phone: [facility] Comment on above: History of PSVT (par oxysmal supraventricular tachycardia); Palpitations; Primary hypertension; RBBB; Bradley's disease; BMI 37.0-37.9, adult; Never smoked tobacco; High risk medication use; Medication course changed; Obstructive sleep apnea syndrome; Pre-syncope Start: 09-30-2023 End: 09-30-2023 ambulatory [facility] Start: 09-26-2023 End: 09-27-2023 ambulatory [facility] Start: 09-26-2023 End: 09-26-2023 Subsequent hospital visit by physician Crista [place] [facility] Start: 09-25-2023 End: 09-26-2023 ambulatory [facility] Start: 09-25-2023 End: 09-25-2023 Subsequent hospital visit by physician Crista Thompson [place] [facility] Comment on above: History of PSVT (par oxysmal supraventricular tachycardia); Palpitations; Pre-syncope; Abnormal EKG Start: 08-26-2023 End: 08-26-2023 Office consultation new/estab patient 60 min Mary Alice Tatum MD Work Phone: [facility] Comment on above: History of PSVT (par oxysmal supraventricular tachycardia); Palpitations; Primary hypertension; RBBB; Pre-syncope; Bradley's disease; Obstructive sleep apnea syndrome; Abnormal EKG Start: 08-26-2023 End: 08-26-2023 ambulatory [facility] Start: 08-26-2023 End: 08-26-2023 ambulatory DO Nancy Petznick Work Phone: [facility] Work Phone: Start: 08-26-2023 End: 08-26-2023 Patient encounter procedure DO Nancy Petznick Work Phone: [facility] Work Phone: Start: 07-17-2023 End: 07-17-2023 Patient encounter procedure DO Nancy Petznick Work Phone: [facility] Work Phone: Start: 07-17-2023 End: 07-17-2023 ambulatory DO Nancy Petznick Work Phone: [facility] Work Phone: Start: 05-20-2023 End: 05-20-2023 ambulatory DO Nancy Petznick Work Phone: [facility] Work Phone: Start: 05-20-2023 End: 05-20-2023 Patient encounter procedure DO Nancy Petznick Work Phone: [facility] Work Phone: Start: 05-09-2023 Postop follow up vis it related to original px Amber Wang [facility] Start: 05-09-2023 End: 05-09-2023 ambulatory DO Nancy Petznick Work Phone: [employer] Other Start: 05-09-2023 End: 05-09-2023 Patient encounter procedure DO Nancy Petznick Work Phone: [facility] [place] [facility] Start: 05-09-2023 Patient encounter procedure DO Nancy Petznick Work Phone: [facility]- Start: 04-17-2023 End: 04-17-2023 ambulatory DO Nancy Petznick Work Phone: [facility] Work Phone: Start: 04-17-2023 End: 04-17-2023 Discharged Recurring DO Nancy Petznick Work Phone: [facility] [place] Start: 03-27-2023 (Post-Op) Post-Op Herman Troup II [facility] Start: 03-27-2023 End: 03-27-2023 ambulatory DO Nancy Petznick Work Phone: [facility] Work Phone: Start: 03-27-2023 End: 03-27-2023 Patient encounter procedure DO Nancy Petznick Work Phone: [facility] [place] Start: 03-26-2023 Registered Recurring DO Gary w Petznick Work Phone: [facility] [place] Start: 02-27-2023 (Post-Op) Post-Op Herman Troup II [facility] Start: 02-27-2023 End: 02-27-2023 ambulatory Herman Bernardo II Other [employer] Other Start: 02-11-2023 Telephone encounter Herman Chang II [facility] Start: 02-11-2023 End: 02-11-2023 Admission to same day surgery center DO Nancy Petznick Work Phone: [facility] [place] Start: 02-11-2023 End: 02-11-2023 ambulatory DO Nancy Petznick Work Phone: [facility] Work Phone: Start: 02-05-2023 End: 02-05-2023 ambulatory Herman Chang II Other [employer] Other Start: 02-05-2023 Telephone encounter Herman Chang II [facility] Start: 02-01-2023 (Prolonged) Prolonge d Services Herman Troup II [facility] Start: 02-01-2023 End: 02-01-2023 ambulatory Herman Billle II Other [employer] Other Start: 01-31-2023 Patient encounter procedure Herman Billle II [facility] [place] [facility] Start: 01-31-2023 End: 01-31-2023 ambulatory DO Nancy Petznick Work Phone: [facility] Work Phone: Start: 01-31-2023 End: 01-31-2023 Discharged Recurring DO Nancy Petznick Work Phone: [facility]-Physical Therapy [place] Start: 01-29-2023 End: 01-29-2023 ambulatory DO Nancy Petznick Work Phone: [facility] Work Phone: Start: 01-29-2023 End: 01-29-2023 Patient encounter procedure DO Nancy Petznick Work Phone: [facility]-Pre-Surgical Testing Work Phone: Start: 01-02-2023 End: 01-02-2023 ambulatory Herman Chang II Other [employer] Other Start: 01-02-2023 Office outpatient vi sit 25 minutes Herman Chang II [facility] Start: 12-27-2022 End: 12-27-2022 ambulatory DO Nancy Petznick Work Phone: [facility] Work Phone: Start: 12-27-2022 End: 12-27-2022 Patient encounter procedure DO Nancy Petznick Work Phone: [facility]-Electrodiagnostic s Work Phone: Start: 12-20-2022 End: 12-20-2022 ambulatory DO Nancy Petznick Work Phone: [facility] Work Phone: Start: 12-20-2022 End: 12-20-2022 Patient encounter procedure DO Nancy Petznick Work Phone: [facility]-Lab [facility] [place] Work Phone: Start: 11-29-2022 End: 11-29-2022 ambulatory DO Nancy Petznick Work Phone: [facility] Work Phone: Start: 11-29-2022 End: 11-29-2022 Patient encounter procedure DO Nancy Petznick Work Phone: [facility]-Electrodiagnostic s Work Phone: Start: 11-20-2022 End: 11-20-2022 Patient encounter procedure DO Nancy Petznick Work Phone: [facility]-Lab [facility] [place] Work Phone: Start: 10-17-2022 End: 10-17-2022 Emergency department patient visit DO Nancy Petznick Work Phone: [facility]-Emergency Room Work Phone: Start: 09-10-2022 End: 09-10-2022 ambulatory MARGARITO JONES Facility:[facility]1 Start: 09-07-2022 Encounter for preprocedural cardiovascular examination MARGARITO JONES [facility] Start: 09-07-2022 Encounter for preprocedural laboratory examination [facility] Start: 09-06-2022 End: 09-06-2022 ambulatory DO Nancy Petznick Work Phone: [facility] Work Phone: Start: 09-06-2022 End: 09-06-2022 Patient encounter procedure DO Nancy Petznick Work Phone: [facility]-Sleep Lab Work Phone: Start: 09-05-2022 End: 09-05-2022 ambulatory Herman Chang II Other [employer] Other Start: 09-05-2022 Office outpatient vi sit 25 minutes Herman Chang II [facility] [place] [facility] Start: 08-30-2022 End: 08-31-2022 ambulatory MARGARITO JONES Facility:[facility] Start: 08-30-2022 End: 08-31-2022 Encounter for preprocedural cardiovascular examination MARGARITO JONES Facility:[facility] Start: 08-07-2022 End: 08-08-2022 ambulatory MARGARITO JONES Facility:[facility] Start: 07-04-2022 (Procedure) Short Keyshawn Acosta [facility] Start: 07-04-2022 End: 07-04-2022 ambulatory Keyshawn Acosta Other [employer] Other Start: 06-20-2022 End: 06-20-2022 Patient encounter procedure DO Nancy Petznick Work Phone: [facility]-XRay [place] [facility] Start: 06-20-2022 End: 06-20-2022 ambulatory DO Nancy Petznick Work Phone: [facility] Work Phone: Start: 06-20-2022 FQHC visit new patient Herman cormier II [facility] Start: 05-31-2022 End: 05-31-2022 ambulatory DO Nancy Jha Work Phone: [facility] Work Phone: Start: 05-31-2022 End: 05-31-2022 Patient encounter procedure DO Nancy Jha Work Phone: [facility]-Sleep Lab Work Phone: Start: 05-18-2022 End: 05-18-2022 ambulatory DO Nancy Jha Work Phone: [facility] Work Phone: Start: 05-18-2022 End: 05-18-2022 Patient encounter procedure DO Nancy Jha Work Phone: [facility] Start: 04-20-2021 End: 04-20-2021 ambulatory Mary Alicea Other [facility] [employer] Other Start: 04-20-2021 Office outpatient vi sit 15 minutes Mary Alicea [facility] Start: 03-07-2021 ([facility] C Vac) [facility] Co vid Vaccine Danielle Barros [facility] Start: 10-25-2020 End: 10-25-2020 Subsequent hospital visit by physician Fred Andrade 1 Work Phone: Radiology Comment on above: Status post total kn ee replacement, right [Z96.651] Start: 07-12-2020 End: 07-12-2020 Subsequent hospital visit by physician Fred Andrade 1 Work Phone: Radiology Comment on above: Pain [R52] Procedures Date Procedure Procedure Detail Performing Clinician Start: 06-29-2024 Ecg routine ecg w/le ast 12 lds w/i&r Mary Alice Tatum MD Work Phone: Start: 05-21-2024 End: 05-21-2024 Mammography Jaci Brandt MD Work Phone: Start: 04-13-2024 Oph bmtry prtl coher intrfrmtry io lens pwr willy Jaci Brandt MD Work Phone: Start: 04-13-2024 End: 04-13-2024 Oph medical xm&eval comprhnsv estab pt 1/> Cortical age-related cataract of both eyes Jaci Brandt MD Work Phone: Comment on above: Cortical age-related cataract of both eyes (Primary Dx) Start: 04-02-2024 Plain X-ray of right hip DO Nancy Jha Work Phone: Start: 02-24-2024 Ecg routine ecg w/le ast 12 lds w/i&r Mary Alice Tatum MD Work Phone: Start: 02-24-2024 Plain X-ray of right hip DO Nancy Jha Work Phone: Start: 02-05-2024 Plain chest X-ray DO Ma ttgloria Jha Work Phone: Start: 10-02-2023 ECG 12-LEAD MARY ALICE SHERIDAN Start: 09-30-2023 ECG 12-LEAD MARY ALICE SHERIDAN [...] mammograph y of bilateral breasts DO Nancy Jha Work Phone: Start: 05-09-2023 Plain X-ray of right hip DO Nancy Jha Work Phone: Start: 03-27-2023 Plain X-ray of right hip DO Nancy Jha Work Phone: Start: 02-11-2023 Total replacement of right hip joint DO Nancy Jha Work Phone: Start: 02-11-2023 Plain X-ray of right hip DO Nancy Jha Work Phone: Start: 02-11-2023 Plain X-ray of right hip DO Nancy Jha Work Phone: Start: 12-20-2022 Methicillin resistan t Staphylococcus aureus culture DO Nancy Jha Work Phone: Start: 10-17-2022 Plain chest X-ray DO Augusto Jha Work Phone: Start: 06-20-2022 Plain X-ray of right hip DO Nancy Jha Work Phone: Start: 05-18-2022 End: 05-18-2022 Screening mammography of bilateral breasts DO Nancy Jha Work Phone: Start: 11-02-2021 Colonoscopy Mary Alice sheridan MD Work Phone: Start: 10-25-2020 Radiologic examinati on knee 3 views Mendez Cosby PA-C Work Phone: Start: 09-12-2020 Antibody screen Start: 07-12-2020 Radiologic exam knee complete 4/more views Best Valera MD Work Phone: Plan of Treatment Date Care Activity Detail Author Start: 11-03-2031 Screening for malignant neoplasm of colon [place] Start: 2027 RSV Vaccine (1 - 1-dose 75+ series) RSV Vaccine (1 - 1-dose 75+ series) [facility] Start: 05-21-2025 Screening for malignant neoplasm of breast Mammogram [facility] Start: 04-21-2025 End: 04-21-2025 Patient encounter procedure 04/21/2025 11:00 AM EST Office Visit [facility] [address] [place] [address] Frank Guzman, DO [address] [facility] [address] [place] [address] [facility] Start: 12-07-2024 End: 12-07-2024 Patient encounter procedure 12/07/2024 10:15 AM EDT Office Visit [facility] [address] [facility] [address] [place] [address] Mary Alice Tatum MD [address] [facility] [address] [place] [address] [facility] Start: 06-29-2024 End: 06-29-2024 Patient encounter procedure 06/29/2024 9:30 AM EST Office Visit [facility] [address] [facility] [address] [place] [address] Mary Alice Tatum MD [address] [facility] [address] [place] [address] [facility] Start: 06-24-2024 End: 06-24-2024 Patient encounter procedure [facility] Comment on above: Arrived Start: 06-18-2024 End: 06-18-2024 Patient encounter procedure 06/18/2024 10:30 AM EST Office Visit [facility] [address] [place] [phone] Jaci Brandt MD [address] [place] [address] Arrived [facility] Comment on above: Arrived Start: 05-26-2024 End: 05-26-2024 Patient encounter procedure 05/26/2024 9:30 AM EST Office Visit [facility] [address] [place] [phone] Jaci Brandt MD [address] [place] [address] Arrived [facility] Comment on above: Arrived Start: 05-21-2024 End: 06-20-2025 DBT Breast - bilateral screening Bilateral screening mammogram with tomosynthesis Imaging Routine Breast cancer screening by mammogram Expected: 05/21/2024, Expires: 06/20/2025 [facility] Comment on above: Expected: 05/21/2024 , Expires: 06/20/2025 Start: 05-20-2024 End: 05-20-2024 Patient encounter procedure [facility] Comment on above: Arrived Start: 05-14-2024 End: 05-14-2024 ambulatory 05/14/2024 10:30 AM EST Treatment [facility] [address] [place] [phone] Elkin Womack, PT [address] [place] [address] [facility] Start: 05-04-2024 End: 05-04-2024 ambulatory [facility] Comment on above: Iliotibial band synd haresh, right leg (Primary Dx); Greater trochanteric bursitis of right hip; Right lumbar radiculopathy; History of total hip arthroplasty, right Start: 04-28-2024 End: 04-28-2024 ambulatory 04/28/2024 2:30 PM EST Treatment [facility] [address] [place] [address] Elkin Womack, PT [address] [place] [address] [facility] Start: 04-22-2024 End: 04-22-2024 ambulatory [facility] Comment on above: Iliotibial band synd haresh, right leg (Primary Dx); Greater trochanteric bursitis of right hip; Right lumbar radiculopathy; History of total hip arthroplasty, right Start: 04-20-2024 End: 04-20-2024 Patient encounter procedure 04/20/2024 11:00 AM EST Office Visit [facility] [address] [place] [phone] Frank Guzman, DO [address] [place] [address] [facility] Start: 04-17-2024 End: 04-17-2024 Patient encounter procedure Radiology Comment on above: Pain [R52] RT KNEE PAIN Start: 04-13-2024 End: 04-13-2024 Patient encounter procedure 04/13/2024 3:00 PM EST Office Visit [facility] [address] [place] [phone] Jaci Brandt MD [address] [place], [place] [id number] [facility] Start: 04-13-2024 End: 04-13-2024 ambulatory 04/13/2024 9:00 AM EST Evaluation [facility] [address] [place] [address] Elkin Womack, PT [address] [place] [phone] Iliotibial band syndrome, right leg (Primary Dx); Greater trochanteric bursitis of right hip; Right lumbar radiculopathy; History of total hip arthroplasty, right [facility] Comment on above: Iliotibial band synd haresh, right leg (Primary Dx); Greater trochanteric bursitis of right hip; Right lumbar radiculopathy; History of total hip arthroplasty, right Start: 04-02-2024 Plain X-ray of right hip XR hip RT min 2V(w/wo pelvis)* [facility] Start: 04-02-2024 XR Hip - right 2 Views [facility] Start: 03-31-2024 End: 03-31-2024 Patient encounter procedure 03/31/2024 1:00 PM EDT Office Visit [facility] [address] [place] [address] Jaci Brandt MD [address] [place] [address] [facility] Start: 02-24-2024 Plain X-ray of right hip XR hip RT min 2V(w/wo pelvis)* [facility] Start: 02-24-2024 XR Hip - right 2 Views [facility] Start: 02-02-2024 Covid-19 Vaccine ( season) Covid-19 Vaccine () [facility] Start: 02-02-2024 Influenza vaccination Influenza Vacc ine (#1) [facility] Start: 12-30-2023 End: 12-30-2023 Patient encounter procedure 12/30/2023 9:30 AM EDT Office Visit [address] [phone] Mary Alice Tatum MD [address] [facility] [address] [place] [address] [facility] Start: 10-02-2023 End: 09-29-2024 ECG 12 Lead [facility] Service Area Work Phone: Comment on above: Expected: 10/02/2023 (Approximate), Expires: 09/29/2024 Start: 09-30-2023 End: 09-30-2023 Patient encounter procedure 09/30/2023 9:45 AM EDT Office Visit [address] [phone] Mary Alice Tatum MD [address] [facility] [address] [place] [address] [facility] Start: 09-26-2023 End: 09-26-2023 Patient encounter procedure [facility] Start: 09-26-2023 Subsequent hospital visit by physician 09/26/2023 11:30 AM EDT Hospital Encounter [place] [place] [phone] [facility] Start: 09-25-2023 End: 09-25-2023 Patient encounter procedure [facility] Start: 09-13-2023 Diabetes Screening Diabetes Screenin g [facility] Start: 08-26-2023 End: 08-25-2025 NM Heart Perfusion W stress and W radionuclide IV Nuclear Stress Test Cardiac Nuclear Medicine Routine History of PSVT (paroxysmal supraventricular tachycardia) Palpitations Pre-syncope Abnormal EKG Expected: 08/26/2023 (Approximate), Expires: 08/25/2025 [facility] Service Area Work Phone: Comment on above: Expected: 08/26/2023 (Approximate), Expires: 08/25/2025 Start: 06-29-2023 COVID-19 Vaccine () COVID-19 Vaccine () [place] Start: 06-29-2023 COVID-19 Vaccine () COVID-19 Vaccine () [place] Start: 06-03-2023 Advance Directive Discussion Advance Directive Discussion [facility] Start: 05-18-2023 Screening for malignant neoplasm of breast Mammogram [place] Start: 02-11-2023 [facility] Start: 02-11-2023 [facility] Start: 02-11-2023 Physical therapy procedure [facility] Start: 01-29-2023 [facility] Start: 12-20-2022 MRSA Culture MRSA Culture [facility] Start: 10-17-2022 [facility] Start: 12-30-2018 DTaP/Tdap/Td Vaccine s (1 - Tdap) DTaP/Tdap/Td Vaccines (1 - Tdap) [place] Start: 12-30-2018 Urine microalbumin profile DTaP,Tdap,Td Vaccine (1 - Tdap) [facility] Start: 2017 Screening for osteoporosis Bone Density Screening [facility] Start: 03-29-2016 Shingrix Vaccine (2 of 3) Shingrix Vaccine (2 of 3) [facility] Start: 2012 RSV High Risk: (Elderly (60+) or Population) (1 - Risk 60-74 years 1-dose series) RSV High Risk: (Elderly (60+) or Population) (1 - Risk 60-74 years 1-dose series) [place] Start: 2012 RSV patient s and/or patients aged 60+ years (1 - 1-dose 60+ series) RSV patients and/or patients aged 60+ years (1 - 1-dose 60+ series) [place] Start: 2002 Zoster Vaccines (1 o f 2) Zoster Vaccines (1 of 2) [place] Start: 1997 Lipid panel Lipid Screening [facility] Start: 1997 Screening for malignant neoplasm of colon [facility] Start: 1992 Screening for malignant neoplasm of breast Mammogram Screening [facility] Start: 1974 DTaP/Tdap/Td Vaccine s (1 - Tdap) DTaP/Tdap/Td Vaccines (1 - Tdap) [place] Start: 1971 Pneumococcal vaccination Pneumococcal Vaccine (1 of 2 - PCV) [place] Start: 1970 Annual PCP Team Chronic Disease Visit Annual PCP Team Chronic Disease Visit [facility] Start: 1970 Anxiety Screening Anxiety Screening [facility] Start: 1970 BP Controlled (<130/80) BP Controlled (<130/80) [facility] Start: 1970 Depression Screening Depression Scre ening [facility] Start: 1970 Diabetes mellitus screening Diabetes Screening [place] Start: 1970 Hepatitis C screening Hepatitis C [facility] Start: 1952 Lipid panel Lipid Panel [place] Start: 1952 Screening for malignant neoplasm of colon [place] Start: 1952 Thyroid stimulating hormone measurement TSH Level [place] Start: 1952 Yearly Adult Physical Yearly Adult P hysical [place] Cotinine [Mass/volum e] in Serum or Plasma [facility] IGP,rfxAptima HPV all,16/18,45 IGP,rfxAptima HPV all,16/18,45 Pathology and Cytology Routine Encounter for Papanicolaou smear of vagina Ordered: 04/20/2024 [facility] Work Phone: Comment on above: Ordered: 04/20/2024 Nicotine [Mass/volum e] in Serum or Plasma [facility] End: 09-25-2023 NM Heart Perfusion W stress and W radionuclide IV [facility] Service Area Work Phone: Comment on above: Once for 1 Occurrenc es starting 09/25/2023 until 09/25/2023 Patient Education [facility] Work Phone: Patient referral [facility] Work Phone: End: 04-30-2025 XR Knee - right 4 Views XR KNEE GENERAL 4V AP BOTH/PA BOTH/LAT/MERC RIGHT Radiology Routine Pain 1 Occurrences starting 03/31/2024 until 04/30/2025 [facility] Work Phone: Comment on above: 1 Occurrences starti ng 03/31/2024 until 04/30/2025 Immunizations Immunization Date Immunization Notes Care Provider Tutu acharya 02-11-2024 Pfizer COVID-19 vacc ine, 12 years and older, (30mcg/0.3mL) (Comirnaty) Mary Alice Tatum MD Work Phone: [place] 02-11-2024 Seasonal, trivalent, recombinant, injectable influenza vaccine, preservative free Elkin Womack PT Work Phone: [facility] 10-12-2023 Pfizer COVID-19 vacc ine, 12 years and older, (30mcg/0.3mL) (Comirnaty) Mary Alice Tatum MD Work Phone: [place] Work Phone: 02-27-2023 Seasonal, quadrivale nt, recombinant, injectable influenza vaccine, preservative free Nancy Jha DO Work Phone: [facility] 02-27-2023 influenza virus vacc ine, unspecified formulation Nancy Jha DO Work Phone: [facility] 03-30-2022 zoster vaccine recombinant Nancy Jha DO Work Phone: [facility] 03-13-2022 Influenza, injectabl e, Madin Loomis Canine Kidney, preservative free, quadrivalent aNncy Jha DO Work Phone: [facility] 03-08-2022 COVID-19 mRNA Bivale nt Booster (MolecuLight) DO Nancy Jha Work Phone: [facility] 03-08-2022 Moderna Bivalent Figueroa ster Vaccination Nancy Petznick DO Work Phone: [facility] 12-01-2021 zoster vaccine recombinant Nancy Jha DO Work Phone: [facility] 09-29-2021 COVID-19 mRNA, Comir geraldine (Pfizer) DO Nancy Jha Work Phone: [facility] 03-30-2021 influenza, injectabl e, quadrivalent, contains preservative Nancy Hansonick DO Work Phone: [facility] 03-30-2021 influenza virus vacc ine, unspecified formulation Xr 1 Work Phone: [facility] 03-07-2021 COVID-19 Pfizer Danielle Barros Other [facility] 08-19-2020 COVID-19 mRNA, Comir geraldine (Pfizer) DO Nancy Jha Work Phone: [facility] 07-28-2020 COVID-19 mRNA, Comir geraldine (Pfizer) DO Nancy Jha Work Phone: [facility] 02-16-2020 influenza, injectabl e, quadrivalent, preservative free Nancy Petteaick DO Work Phone: [facility] 10-27-2019 pneumococcal polysaccharide vaccine, 23 valent Nancy Petznick DO Work Phone: [facility] 12-29-2018 tetanus and diphther ia toxoids, adsorbed, preservative free, for adult use (5 Lf of tetanus toxoid and 2 Lf of diphtheria toxoid) Nancy Petznick DO Work Phone: [facility] 10-15-2018 pneumococcal conjuga te vaccine, 13 valent Nancy Petznick DO Work Phone: [facility] 02-02-2016 zoster vaccine, live Nancy Jha DO Work Phone: [facility] 10-26-2015 influenza, seasonal, injectable Danielle Barros Other [facility] 10-26-2015 pneumococcal polysaccharide vaccine, 23 valent Danielle Fitt Other [facility] Payers Date Payer Category Payer Managed Care (Private) [facility] [id number] 2023 Medicare [id number] 2023 Self-pay [id number] 2018 Private Health Insurance [id number] 1959 Private Health Insurance [id number] 2.16.840.1.301263.19 1952 Unknown [id number] 2.16.840.1.856063.3.579. 2.593 1952 Unknown [id number] 2.16.840.1.157973.3.579. 2.593 1952 Unknown [id number] 2.16.840.1.266477.3.579. 2.593 1952 Unknown [id number] 2.16.840.1.572159.3.579. 2.1246 1952 Unknown [id number] 2.16.840.1.107498.3.579. 2.1246 1952 Unknown [id number] 2.16.840.1.958279.3.579. 2.124 1952 Unknown [id number] 2.16.840.1.744637.3.579. 2.124 1952 Unknown [id number] 2.16.840.1.769227.3.579. 2.124 1952 Unknown [id number] 2.16.840.1.693240.3.579. 2.1258 1952 Unknown [id number] 2.16.840.1.767585.3.579. 2.1258 1952 Unknown [id number] 2.16.840.1.368061.3.579. 2.1258 1952 Unknown [id number] 2.16.840.1.156987.3.579. 2.1258 1952 Unknown [id number] 2.16.840.1.595542.3.579. 2.125 1952 Unknown [id number] 2.16.840.1.684135.3.579. 2.125 1952 Unknown [id number] 2.16.840.1.572711.3.579. 2.125 1952 Unknown [id number] 2.16.840.1.664815.3.579. 2.125 1952 Unknown [id number] 2.16.840.1.112191.3.579. 2.125 1952 Unknown [id number] 2.16.840.1.465494.3.579. 2.1259 1952 Unknown [id number] 2.16.840.1.328221.3.579. 2.1259 1952 Unknown [id number] 2.16.840.1.217833.3.579. 2.9 1952 Unknown [id number] 2.16.840.1.583953.3.579. 2.1258 1952 Unknown [id number] 2.16.840.1.248745.3.579. 2.125 1952 Unknown [id number] 2.16.840.1.980850.3.579. 2.1258 1952 Unknown [id number] 2.16.840.1.744119.3.579. 2.1244 1952 Unknown [id number] 2.840.1.490427.3.579. 2.1243 1952 Unknown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 co-contraction with 4-4+/5 strength, and be successful with resumption of all previously performed activities in 4-8 weeks The patient to score <10% residual functional impairment via LEFS, have good compliance to ergonomic and postural recommendations, and have prophylactic management plan in place including routine home management flexibility and strength exercises to reduce risk of re-occurrence and ensure long-term management to be met by conclusion of PT expected in 4-8 weeks Rehab Potential: Good PT Assessment: The patient has participated in 1 outpatient PT sessions since start of care on 04/13/24 for chronic right lateral hip pain that appears to be associated with primary lumbar radiculopathy, greater trochanteric bursitis, and IT-Band Syndrome. Patient is agreeable with PT POC and is motivated to participate in this episode of care. Good initial response to PT and successful implementation of HEP. Plan: Recommend outpatient PT 1-3 times/week for up to 8 weeks per above PT POC pending patient progress and medical necessity standards (04/13/24-DBO) I hereby deem this POC medically necessary. Please sign below and fax back to the number below. Physician Signature: Date: documented in this encounter [facility] 04-02-2024 Evaluation note Diagnosis Onset Date Resolution Aftercare following right hip joint replacement surgery acute March 9:30am Greater trochanteric bursitis of right hip acute April 022023 9:30am Iliotibial band syndrome, right leg acute March 9:30am Status post hip replacement acute April 02 9:30am [facility] Work Phone: [phone]) 231-310309-23-2024 History of Present illness Narrative* Mary Alice Ttaum MD - 02/24/2024 3:15 PM EDT Most recently seen by me in September 2023. This is a hospital discharge follow-up. Patient presented with chest discomfort which radiated to the jaw. Negative for objective evidence of ischemia. Was started on enteric-coated aspirin 81 mg daily. She does have sublingual nitroglycerin for as needed use. She is not complaining of severe GERD symptoms. Her Lexiscan Myoview in 2023 was negative. Subjective : 2 times in February after she had done some brisk walking she was back in the car, and experiencedsome shortness of breath. She did some deep breathing and the symptoms abated. She denies orthopneaor PND. Chest discomfort has not recurred. History so Far : 1. Primary hypertension [...] 9. Latex allergy, dye allergy. 10. Echocardiogram December 2022 LVEF 60 to 65%, impaired relaxation pattern, trace tricuspid regurgitation, trace mitral regurgitation, no pericardial effusion, chamber dimensions are normal, RVSP 22 mmHg. 11.30-day event monitor August 2023 interpreted to show multiple brief runs of SVT with heart rate close to 170 bpm some of these appear to be symptomatic, palpitations and dizziness no bradycardia reported 12. Echocardiogram December 2022-LVEF 60 to 65% normal chamber dimensions trace mitral regurgitation trace tricuspid regurgitation no aortic stenosis or regurgitation normal IVC left atrial diameter 3.6 cm aortic root size 3.6 cm LV end-systolic diameter 2.9 cm TAPSE 2 cm left atrial volume index 27 mL/m . PA pressure 21 mmHg 13. EKG September 2020-normal sinus rhythm OK interval 164 ms QRS duration 138 ms QTc 462 ms complete right bundle branch block 14. Obstructive sleep apnea on CPAP therapy. 15. Lexiscan Myoview September 2023-LVEF 68% transient ischemic dilatation 1.0 which is normal, normal perfusion. 16. Iodine allergy, shellfish allergy, latex allergy Past Surgical History: She has a past surgical history that includes Colonoscopy; Total knee arthroplasty (Bilateral); Foot surgery (Left); Hip surgery (Right); Shoulder arthroscopy (Right); Hysterectomy; Dilation and curettage of uterus; and Laparoscopic colostomy. Objective Wt Readings from Last 3 Encounters: 02/24/24 102 kg (225 lb) 12/30/23 102 kg (225 lb) 10/02/23 109 kg (240 lb) Vitals: 02/24/24 1517 BP: 120/64 BP Location: Left arm Patient Position: Sitting Pulse: 62 Weight: 102 kg (225 lb) Height: 1.715 m (5' 7.5 ) Physical Exam: GENERAL APPEARANCE: in no acute distress. CHEST: Symmetric and non-tender. INTEGUMENT: Skin warm and dry HEENT: No gross abnormalities identified.No pallor or scleral icterus. NECK: Supple, no JVD, no bruit. NEURO/PSHCY: Alert and oriented x3; appropriate behavior and responses and responses LUNGS: Clear to auscultation bilaterally; normal respiratory effort. HEART: Rate and rhythm regular with no evident murmur; no gallop appreciated. ABDOMEN: Soft, non tender. MUSCULOSKELETAL: No gross deformities. EXTREMITIES: Warm There is no edema noted. Meds: Current Outpatient Medications Medication Instructions ascorbic acid (Vitamin C) 1,000 mg tablet aspirin 81 mg, oral, Daily cholecalciferol (VITAMIN D3) 10,000 Units, oral, Daily clindamycin (Cleocin) 300 mg capsule 1 capsule, oral, Before and after dental appointments clonazePAM (KLONOPIN) 0.5 mg, oral, As needed dilTIAZem CD (CARDIZEM CD) 120 mg, oral, Daily ferrous sulfate (325 mg ferrous sulfate) 325 mg, oral, Every other day flecainide (TAMBOCOR) 50 mg, oral, 2 times daily levothyroxine (SYNTHROID, LEVOXYL) 100 mcg, oral, Every other day, Alternating with 112mcg dose every other day. levothyroxine (TIROSINT) 112 mcg, oral, Every other day, Take on an empty stomach at the same time each day, either 30 to 60 minutes prior to breakfast lisinopril 20 mg, oral, Daily MAGNESIUM CITRATE ORAL oral, Daily multivitamin tablet 1 tablet, oral, Daily nitroglycerin (NITROSTAT) 0.4 mg, sublingual, Every 5 min PRN NON FORMULARY 2.5 mg Triest daily selenium (SELENOMAX ORAL) 100 mcg/day, oral, Daily sertraline (ZOLOFT) 25 mg, oral, Daily RT Allergies Allergen Reactions Metoprolol Headache, Dizziness and Nausea/vomiting Bee Venom Protein (Honey Bee) Swelling and Unknown Other Reaction(s): Unknown Shellfish Containing Products GI Upset and Nausea/vomiting Adhesive Itching, Rash and Unknown Iodine Itching, Rash and Unknown Latex Itching, Rash and Unknown Rash Penicillin Itching and Rash LABS: BNP level was 36 troponin x 2 negative sodium 136 potassium 3.8 hemoglobin 12.8 hematocrit 38.6 platelets 302,000. 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 Primary hypertension 2. Bradley's disease 3. RBBB 4. Sleep apnea treated with continuous positive airway pressure (CPAP) 5. Never smoked tobacco 6. BMI 34.0-34.9,adult 7. Angina pectoris, unstable (Multi) 8. Shortness of breath 9. Medication course changed Patient's chest discomfort does sound like angina pectoris. She does not have any documented flow-limiting coronary artery disease. GERD induced esophageal spasm is in the differential diagnosis. Both are treated with nitrates. On her perfusion study, myocardial ischemia was not reported but inferior lateral wall hypokinesis was reported. The automatic cigar wrapper tender went on to say that the study showed moderate inferior lateral myocardial infarction. EKG does not show such evidence. No ischemia was reported. We will start isosorbide 10 mg p.o. 3 times a day, patient can even use it on an as-needed basis. She can try sublingual nitroglycerin for isolated episodes of chest discomfort. If symptoms persist, we will proceed with cardiac catheterization possible intervention. If symptoms escalate she understands that she needs to seek emergent medical attention. Follow up : as scheduled; 06/29/2024 Provider Attestation - Deyanira Bowser LPN Scribzoltan documentation All medical record entries made by the Scribe were at my direction and personally dictated by me. Ihomar reviewed the chart and agree that the record accurately reflects my personal performance of the history, physical exam, discussion and plan. documented in this [facility] Work Phone: 1(588) 768-313709-23-2024 Instructions* Patient Instructions* Deyanira Hernandez LPN - 02/24/2024 3:15 PM EDT Please bring all medicines, vitamins, and herbal supplements with you when you come to the office. Prescriptions will not be filled unless you are compliant with your follow up appointments or have a follow up appointment scheduled as per instruction of your physician. Refills should be requested at the time of your visit. EKG done in office today BMI was above normal measurement. Current weight: 102 kg (225 lb) Weight change since last visit (-) denotes wt loss 0 lbs Weight loss needed to achieve BMI 25: 63.3 Lbs Weight loss needed to achieve BMI 30: 31 Lbs Provided instructions on dietary changes Provided instructions on exercise. documented in this [facility] Work Phone: 1([phone]) 604-938109-10-2024 History of Present illness Narrative* Nancy Jha, DO - 02/11/2024 1:30 PM EDT Images from the original note were not included. Julia Villeda is a 73 y.o. female presents with chief complaint of Chief Complaint Patient presents with Hospital Follow-up History of Present Illness The patient is here for a follow-up from the ER visit on 02/05/2024, where she presented with chestpain. She had an EKG and blood work done, both of which were essentially normal. Her chest pain resolved, and she has not experienced any chest pain since then. Her blood pressure was significantly elevated in the ER, with a maximum reading of 192/88. Today, her blood pressure is lower at 130/74. She sees a executive vice president of sales for SVT and is leaving on vacation . She experienced jaw pain that originated under her ears and extended to the front of her jaw. This occurred around 4:30 PM on Saturday while she was attempting to attach a new box, which caused her frustration. She used her Kardia[employer] device, which indicated an abnormal heart rhythm, but it was n either bradycardia nor tachycardia; the result was unclassified. Concerned about the abnormal reading, she decided to visit the ER. At the ER, she was advised to take aspirin, despite her previous adverse reactions to it. Her bloodwork was conducted twice, both times showing no protein. She was advised to take aspirin 325 mg. Bythe time she reached the hospital, her chest pain had subsided, but it recurred once or twice before disappearing again. She experienced more pain between 6:15 and 6:40 PM, accompanied by sweating and nausea. The doctor suspected angina. She underwent a stress test with Dr. Mcknight and plans to schedule another appointment with him, but is concerned about the timing due to her upcoming trips. She has a blood pressure cuff at home but doubts its accuracy. 02.04.23 went to [facility] for chest pain. Labs and EKG normal. BP elevated in ER. Is not scheduled to see cardiology again until June, has not yet called their office to see about getting in sooner. Is leaving for vacation on . Has not had any chest pain since day of ER. Is questioning ifshe should have nitroglycerin prescription on hand. Was instructed to take an aspirin a day and is questioning if she has to do this. Asking for a handicap placard, her current prescription expires in May this was from her hip surgery. SUBJECTIVE: CURRENT MEDICATIONS: ALLERGIES/DISCONTINUE MEDICATIONS Current Outpatient Medications: Ascorbic Acid (vitamin C) 1000 MG tablet, , Disp: , Rfl: cholecalciferol (Vitamin D-3) 25 MCG (1000 UT) capsule, , Disp: , Rfl: dilTIAZem CD (Cardizem CD) 120 MG 24 hr capsule, Take 120 mg by mouth in the morning., Disp: , Rfl: ferrous sulfate 325 (65 Fe) MG tablet, Take 325 mg by mouth every other day, Disp: , Rfl: flecainide (Tambocor) 50 MG tablet, Take 50 mg by mouth in the morning and 50 mg in the evening., Disp: , Rfl: levothyroxine (Synthroid) 112 MCG tablet, 1 po every other day alternating with 100mcg dose, Disp: 90 tablet, Rfl: 0 levothyroxine (Synthroid, Levoxyl) 100 MCG tablet, 1 po every other day alternating with 112mcg dose, Disp: 90 tablet, Rfl: 0 lisinopril 20 MG tablet, TAKE 1 TABLET BY MOUTH DAILY, Disp: 30 tablet, Rfl: 5 magnesium citrate solution, Take by mouth 400mg, Disp: , Rfl: MISC NATURAL PRODUCTS PO, 2.5 mg Triest, Disp: , Rfl: Multiple Vitamin (MULTI VITAMIN DAILY PO), Multi Vitamin, Disp: , Rfl: selenium 200 MCG tablet, 1 (one) time each day at the same time., Disp: , Rfl: sertraline (Zoloft) 25 MG tablet, TAKE 1 TABLET BY MOUTH DAILY, Disp: 30 tablet, Rfl: 5 clonazePAM (KlonoPIN) 0.5 MG tablet, Take 1 tablet (0.5 mg) by mouth 2 (two) times a day as needed for anxiety, Disp: 25 tablet, Rfl: 0 Allergies Allergen Reactions Metoprolol Dizziness, Headache and GI intolerance Bee Venom Swelling and Unknown Other Reaction(s): Unknown Prednisone Other Reaction(s): headache,heart racing Shellfish Allergy Other Reaction(s): GI Upset Shellfish-Derived Products Other Reaction(s): Unknown Iodine Itching, Rash and Unknown Latex Itching, Rash and Unknown Rash Penicillin G Rash, Itching and Unknown Other Reaction(s): Unknown Penicillins Itching and Rash Other Reaction(s): Unknown Wound Dressing Adhesive Itching, Rash and Unknown Other Reaction(s): skin sensitivity, Unknown Other Reaction(s): Unknown Medications Discontinued During This Encounter Medication Reason clindamycin (Cleocin) 300 MG capsule Therapy completed nitroglycerin (Nitrostat) 0.4 MG SL tablet Therapy completed magnesium oxide 400 MG capsule Therapy completed PAST MEDICAL HISTORY: SURGICAL/SOCIAL/FAMILY HISTORY DEPRESSION SCREEN: Past Medical History: Diagnosis Date Abnormal mammogram 05/29/2016 Abnormal Pap smear of cervix LGSIL Anxiety Arthritis of elbow Arthritis of right hip Artificial knee joint present 10/26/2020 Chicken pox Chronic fatigue Depression (CMS/HCC) Dupuytren contracture Dupuytrens contracture 02/15/2020 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CMS/HCC) Hip arthritis 07/27/2009 History of hip replacement Hx of tonsillitis Hyperlipidemia (CMS/HCC) Hypertension (CMS/HCC) IFG (impaired fasting glucose) Lumbar and sacral arthritis 10/22/2022 Measles Mixed hyperlipidemia (CMS/HCC) Mumps VONDA (obstructive sleep apnea) Panic attacks (CMS/HCC) Pneumonia Sleep apnea SVT (supraventricular tachycardia) (CMS/HCC) Thyroid disease (CMS/HCC) Past Surgical History: Procedure Laterality Date CERVICAL BIOPSY W/ LOOP ELECTRODE EXCISION 2000 CERVIX LESION DESTRUCTION 1989 CHOLECYSTECTOMY 2011 COLONOSCOPY x3 2005, 2016, 2021 DILATION AND CURETTAGE x2 1988, 2013 FOOT SURGERY Left bunion HYSTERECTOMY 2014 LAV-BSO HYSTEROSCOPY 2010 D+C KNEE SURGERY 2019 drained and viscusupplementation injection REPLACEMENT TOTAL HIP LATERAL POSITION Right 02/11/2023 ROTATOR CUFF REPAIR Right 2014 TOTAL KNEE ARTHROPLASTY Left 12/08/2018 TOTAL KNEE ARTHROPLASTY Right 10/03/2020 VAGINAL DELIVERY 1988 Depression: Not at risk (02/11/2024) PHQ-2 PHQ-2 Score: 0 Social History Tobacco Use Smoking status: Never Smokeless tobacco: Never Vaping Use Vaping status: Never Used Substance Use Topics Alcohol use: Never Comment: caffeine: hot chocolate, tea occasional Drug use: Never Family History Problem Relation Name Age of Onset Colon cancer Mother Stroke Mother Heart disease Father Dementia Father Skin cancer Father lower RT eyelid Heart attack Father x3 Thyroid disease Paternal Grandmother Colon cancer Father's Sister x2 Breast cancer Neg Hx Ovarian cancer Neg Hx REVIEW OF SYMPTOMS: Review of Systems Constitutional: Negative for fatigue. HENT: Negative for rhinorrhea. Respiratory: Negative for cough and shortness of breath. Cardiovascular: Positive for chest pain. Gastrointestinal: Negative for abdominal distention. Skin: Negative for rash. Neurological: Negative for dizziness. All other systems reviewed and are negative. OBJECTIVE: 02/11/2024 1:22 PM 01/07/2024 9:45 AM 12/16/2023 10:02 AM Vitals BMI 34.92 kg/m2 34.31 kg/m2 34.65 kg/m2 BSA (m2) 2.22 m2 2.21 m2 2.22 m2 Systolic 130 134 136 Diastolic 74 76 84 Heart Rate 64 64 68 SpO2 98 % 98 % 95 % Temp 98.3 F 98.3 F 96.6 F Height (in) 5' 7.75 5' 7.75 5' 7.75 Weight (lb) 228 224 226.2 Visit Report Report Report Report GENERAL EXAM: Physical Exam Vitals reviewed. Constitutional: General: She is not in acute distress. Appearance: Normal appearance. She is obese. She is not ill-appearing. HENT: Head: Normocephalic and atraumatic. Nose: Nose normal. Mouth/Throat: Mouth: Mucous membranes are moist. Eyes: General: No scleral icterus. Extraocular Movements: Extraocular movements intact. Cardiovascular: Rate and Rhythm: Normal rate and regular rhythm. Heart sounds: Murmur heard. Pulmonary: Effort: Pulmonary effort is normal. Breath sounds: Normal breath sounds. Musculoskeletal: General: Normal range of motion. Cervical back: Normal range of motion and neck supple. Skin: General: Skin is warm and dry. Findings: No rash. Neurological: General: No focal deficit present. Mental Status: She is alert and oriented to person, place, and time. Mental status is at baseline. Psychiatric: Mood and Affect: Mood normal. Behavior: Behavior normal. Thought Content: Thought content normal. Judgment: Judgment normal. ASSESSMENT AND PLAN: Assessment & Plan 1. Chest pain. The chest pain could be attributed to elevated blood pressure, which may exert additional stress onthe heart. The recent stress test results are reassuring. It is also plausible that esophageal spasms could be causing symptoms similar to heart pain. She was advised to take two baby aspirin (81 mg each) daily with food, not on an empty stomach. If she has aspirin 325 mg, she can halve the tablet.She should also have nitroglycerin readily available. A CT angiogram will be ordered for further evaluation. She was reminded to continue her blood pressure medication regimen. I spent a total of 30 minutes or more a date of the service which included preparing to see the patient, [id number] patient care including obtaining/reviewing history and performing appropriate medical examination, completing clinical documentation and coordination of care. 2. Elevated blood pressure. Her blood pressure was significantly elevated in the ER with a max of 192/88. Today, her blood pressure is lower at 130/74. She was reminded to continue her blood pressure medication regimen and to monitor her blood pressure regularly. She was advised to bring her blood pressure cuff on her trips to ensure accurate monitoring. 3. Supraventricular tachycardia (SVT). She sees a executive vice president of sales for SVT. She was advised to follow up with her executive vice president of sales, Dr. Mcknight, after her trips to discuss the recent events and any further management needed. 4. Health Maintenance. She will be getting her COVID and flu shots at [facility]. NANCY JHA D.O. This note was entered using Videost[employer] copilot. Grammatical and dictation errors maybe present in translation *I have reviewed and reconciled the history and medication list with the patient today* documented in this encounterWashington [facility] [id number] History of Present illness Narrative* Mary Alice Tatum MD - 09/30/2023 9:45 AM EDT Images from the original note were not [...] accompanied by her who is an electrical maintenance worker. She reports having palpitations at a frequency of once or twice a year, has a diagnosis of SVT, they do not usually last long, but in the last few months they have increased in frequency intensity and duration. She may getthem up to 3 times a week. In October or November 2022 when she had palpitations she had a syncopal episode, she found herself on the floor, no major injury. The palpitations are not precipitated by activityor meals. Sensation is that her heart is pounding out of her chest. Episodes last few seconds. A recent Holter monitor was interpreted to show bursts of supraventricular tachycardia, tracings are notavailable for review.. I have reviewed detailed notes [...] mmHg 9. EKG September 2020-normal sinus rhythm OK interval 164 ms QRS duration 138 ms [...] my direction and personally dictated by me. Masoud reviewed the chart and agree that the record accurately reflects my personal performance of the history, physical exam, discussion and plan. Scribe Attestation By signing my name below, I, Jane Mendoza LPN attest that this documentation has been prepared under the direction and in the presence of Mary Alice Tatum MD. [facility] Work Phone: [phone]) [phone] Instructions* Patient Instructions* Camila Bentley LPN - 09/30/2023 9:45 AM [...] time of your visit. documented in this [facility] Work Phone: 1([phone]) 474-669003-25-2024 History of Present illness Narrative* Mary Alice Tatum MD - 08/26/2023 11:15 AM EDT Referred by Dr. Dey ref. provider found for Establish Care (Joelle jha) History Of Present Illness: Julia Villeda is a 73 y.o. female presenting with palpitations. Multiple comorbidities will be listed below. She is accompanied by her who is an electrical maintenance worker. She reports having palpitations at a frequency of once or twice a year, has a diagnosis of SVT, they do not usually last long, but in the last few months they have increased in frequency intensity and duration. She may getthem up to 3 times a week. In October or November 2022 when she had palpitations she had a syncopal episode, she found herself on the floor, no major injury. The palpitations are not precipitated by activityor meals. Sensation is that her heart is pounding out of her chest. Episodes last few seconds. A recent Holter monitor was interpreted to show bursts of supraventricular tachycardia, tracings are notavailable for review.. I have reviewed detailed notes [...] mmHg 11. EKG September 2020-normal sinus rhythm OK interval 164 ms QRS duration 138 ms QTc 462 ms incompleteright bundle branch block Clinical decision makin. Increasing frequency of palpitations associated with lightheadedness presyncope and one bout of syncope 2. Holter monitor reports bouts of supraventricular tachycardia with symptoms. 3. Complete right bundle branch block on EKG OK interval normal 4. Primary hypertension 5. Increased [...] you for allowing me to participate in uJlia's care, please do not hesitate to call if furtherquestions arise, Sincerely, Mary Alice Tatum MD [facility] Provider Attestation - Scribe documentation All medical record entries made by the Scribe were at my direction and personally dictated by me. Ihave reviewed the chart and agree that the record accurately reflects my personal performance of the history, physical exam, discussion and plan. documented in this [facility] Work Phone: 1([phone]) [phone] Instructions* Patient Instructions* Mona Matthews LPN - 08/26/2023 11:15 AM [...] Increase physical activity . documented in this [facility] Work Phone: [phone]) [phone] Evaluation note* Encounter Date Diagnosis Assessment Notes Treatment Notes Treatment Clinical Notes May, S/P total right hip arthroplasty [...] in the office today and providing supervision. [employer] Other 10-25-2023 Evaluation note* Encounter Date Diagnosis Assessment Notes Treatment Notes Treatment Clinical Notes Mar, S/P total right hip arthroplasty (ICD-10 - Z96.641) Mar, Aftercare following joint replacement surgery (ICD-10 - Z47.1) Mar, Presence of right artificial hip joint (ICD-10 - Z96.641) Mar, Other [facility] on 02/11/2023 Doing well Patient may continue increasing activities as tolerated. Continue taking [id number] anti-inflammatorie s as needed for assistance with swelling and pain associated with the operative extremity. Follow-up in 6 weeks for repeat examination and repeat x-rays. [employer] Other 09-27-2023 Evaluation note* Encounter Date Diagnosis Assessment Notes Treatment Notes Treatment Clinical Notes Feb, S/P total right hip arthroplasty (ICD-10 - Z96.641) Feb, Aftercare following joint replacement surgery (ICD-10 - Z47.1) Feb, Presence of right artificial hip joint (ICD-10 - Z96.641) Feb, Other [facility] at [facility] on 02/11/2023 Doing well Patient may continue [...] examination and x-rays of the right hip. [employer] Other 09-11-2023 Evaluation note* Encounter Date Diagnosis Assessment Notes Treatment Notes Treatment Clinical Notes Feb, Primary osteoarthritis of right hip (ICD-10 - M16.11) [employer] Other 09-01-2023 Evaluation note* Encounter Date Diagnosis [...] patient could proceed with surgery safely. The teaching manager was vital for surgery timing and [...] plans. Prolonged services time spent: 34 minutes [employer] Other 08-31-2023 Evaluation note* Encounter Date Diagnosis [...] postoperative period Joints Meeting Checklist - Pharmacy: [facility] to bed - Approach/Technique: anterior, [place] bed - Implants: Avenir Complete/G7; - Anesthesia: General versus spinal - Blocks: Fascia iliaca - Preop Antibiotics: Ancef - TXA: yes-systemic - Positioning/OR Bed: supine on [place] bed - Intraop X-ray: yes - Lopez: [...] elected to proceed with the above surgery. [employer] [facility] Other 08-02-2023 Evaluation note* Encounter Date Diagnosis Assessment Notes Treatment Notes Treatment Clinical Notes Jan, Right hip pain (ICD-10 - M25.551) Jan, Primary osteoarthritis of right hip (ICD-10 - M16.11) Jan, Other [facility] (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 (ICD-10 - Z79.899) Jan, [...] on iron today, patient wanted to use tilk-ytu-rhjmrpd. - serum albumin: 4.2 - 25-OH Vit [...] or absent clearances could delay their surgery. [employer] [facility] Other 04-10-2023 NotePROCEDURE: XR FOOT LT MIN [...] Electronically authenticated by: MAGNOLIA MICHEL Date: 2022-09-10 12:54[facility]04-05-2023 Evaluation note* Encounter Date Diagnosis Assessment Notes Treatment Notes Treatment Clinical Notes Sep, Right hip pain (ICD-10 - M25.551) Sep, Primary osteoarthritis of right hip (ICD-10 - M16.11) Sep, Other oysterman (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 (ICD-10 - Z79.899) Sep, Age-related osteoporosis without current pathological fracture (ICD-10 - M81.0) Sep, Other 1. We had a rebecca g discussion with the patient today concerning [...] 3 times a day. 3. NSAIDs: Recommended jnqy-anl-qmwhohy anti-inflammatories 4. Physical therapy: Discussed formal physical [...] to get her 6 preoperative screening labs. [employer] [facility] Other 03-08-2023 NotePROCEDURE: XR FOOT LT MIN [...] Electronically authenticated by: ELKIN COLLIER Date: 2022-08-08 09:37[facility]01-18-2023 Evaluation note* Encounter Date Diagnosis Assessment Notes Treatment Notes Treatment Clinical Notes Jun, Right hip pain (ICD-10 - M25.551) Jun, Primary osteoarthritis of right hip (ICD-10 - M16.11) Jun, Other oysterman (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 (ICD-10 - Z79.899) Jun, [...] to go to sometime in the summer. [employer] [facility] Other 11-09-2021 NoteHNO ID: [id number] Author: Best Valera MD Service: ? Author [...] We will follow-up for any problems Best Valera, [facility]10-05-2021 Evaluation note* Encounter Date Diagnosis Assessment Notes Treatment Notes Treatment Clinical Notes Mar, Encounter for immunization (ICD-10 - Z23) Patient presents for COVID-19 vaccination BOOSTER. Pre-screening form answers evaluated with patient. Patient denies current illness or allergic reaction to component of COVID-19 vaccine. Patient provided with current copy of EUA. [employer] [facility] Other 08-24-2021 NoteHNO ID: [id number] Author: Best Valera MD Service: ? Author Type: Physician Type: Progress Notes Filed: 01/24/2021 10:33 AM Note Text: Ortho Knee Follow Up Note Narrative Referring Provider: Best Valera [address] [place] [address] PCP: Nancy Jha, DO IMPRESSION/PLAN: 70 year [...] Best Valera MD January 24, 2021 10:32 [facility]06-17-2021 NoteHNO ID: [id number] Author: Best Valera MD Service: ? Author Type: Physician Type: Progress Notes Filed: 11/17/2020 2:15 PM Note Text: Ortho Knee Follow Up Note Narrative Referring Provider: Best Valera [address] [place] [facility] [address] PCP: Nancy Jha, DO IMPRESSION/PLAN: 70 year [...] Best Valera MD November 17, 2020 2:14 [facility]05-25-2021 NoteHNO ID: [id number] Author: Mendez Cosby PA-C Service: ? Author Type: Physician American Sign Language Teacher Type: Progress Notes Filed: 10/25/2020 10:27 AM Note Text: Ortho Knee Follow Up Note Narrative Referring Provider: Best Valera [address] [place] [address] PCP: Nancy Jha, DO IMPRESSION/PLAN: 70 year [...] loosening. Provider: Mendez Cosby PA-C Completed by: [facility] NoteHNO ID: [id number] Author: RT Og(David) Service: ? Author Type: Tester Operator Helper Type: Progress Notes Filed: 10/25/2020 9:56 AM [...] BY: RT Og(R) October 25, 2020 9:55 [facility]05-04-2021 NoteHNO ID: [id number] Author: Radha Milligan ([employer]) Service: ? Author Type: ? Type: Plan [...] by: acetaminophen 325 mg tablet Radha Milligan (Enterprise Systems Manager) PAGER: chelly October 04, 2020 3:18 [id number] NoteHNO ID: [id number] Author: Jaci Ojeda RN Service: Care Management Author Type: Registered Nurse Type: Care Mgt Progress Note Filed: 10/04/2020 12:33 PM Note Text: CARE MANAGEMENT DISCHARGE NOTE SERVICE DATE: 10/04/2020 SERVICE TIME: 12:31 PM LOS: 0 days Admission Date: 10/03/2020 DISCHARGE ARRANGEMENT (list agency and phone number) Discharge Arrangement: Home;Home [facility] Care: PT CAREGIVER ASSESSMENT: Caregiver is ready, willing and able to meet the patient's needs as recommended by the inter-professional team:: Yes Does the patient have an acute stroke diagnosis, or has the patient had a stroke during this admission?: No Patient's transition needs and plan for meeting these needs: [facility] accepting HANDOFF COMMUNICATION: Handoff to: Primary Care Physician;Other Caregiver Primary Care Physician Name/Phone: Nancy Jha [phone] Other Caregiver Name/Phone: [facility] [phone] TRANSPORTATION ARRANGEMENTS: Transportation Arrangements: Car ADDITIONAL CONTACT RESOURCES: RonalAlex (Spouse) Discharge Information Row Name Admission (Current) from 10/03/[address] [facility] Start of Care ? within 24-48 hrs of discharge [place] of Choice Given: Yes Level of Care Discussed: Home Care;Other: See Comment (Patient requested [facility]) Caregiver is ready, willing and able to meet the patient's needs as recommended by the inter-professional team:: Yes Does the patient have an acute stroke diagnosis, or has the patient had a stroke during this admission?: No Family Name/Phone: Alex Villeda [phone] Needs Prior to Discharge: Home Care Order Transportation Arrangements: Car SIGNATURE: Jaci Ojeda RN PATIENT NAME: Julia Villeda DATE: October 04, 2020 TIME: 12:31 PM PAGER/CONTACT #: [phone] NoteHNO ID: [id number] Author: Jaci Ojeda RN Service: Care Management Author Type: Registered Nurse Type: Care Mgt Initial Assessment Filed: 10/04/2020 12:30 PM Note Text: CARE MANAGEMENT: ASSESSMENT AND DISCHARGE PLAN SERVICE DATE: October 04, 2020 SERVICE TIME: 12:29 PM PRIMARY CARE PHYSICIAN: Nancy Jha DO ADMISSION STATUS: Extended Recovery Needs Prior to Discharge: Home Care Order MEDICAL: [facility] CHOICE PLUS 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 Last discharge within 30 days: No Advance Directive: Current Advance Directive: None Test Consultant Attempted to Assist with AD Completion: Yes [...] bathroom) Has the Patient Been in a Halfway Facility in the Past 30 days?: No SOCIAL: Living Arrangements: Home Lives With: Spouse Financial Resources: Retired Primary Contact: Extended Emergency Contact Information Primary Emergency Contact: Alex Villeda Address: [address] [place] [address] Mobile Relation: Spouse Secondary Emergency Contact: Vaishali Villeda Mobile Relation: Daughter Supportive Patient Contact:: Yes Contact Resources: Family Family Name/Phone: Alex Villeda [phone] Caregiver AssessmentCaregiver is ready, willing and able to meet the patient's needs as recommended by the inter-professional team:: Yes Does the patient have an acute stroke diagnosis, or has the patient had a stroke during this admission?: No Patient's transition needs and plan for meeting these needs: [facility] accepting Patient's perception of need for this admission: right total knee replacement Medication Adherance I am convinced of the importance of my prescription medication: 0 - Agree Completely I worry that my prescription medication will do more harm than good to me : 0 - Disagree Completely I feel financially burdened by my jaq-mx-dyeidf expenses for my prescription medication:: 0 - Disagree Completely Risk Score: 0 Patient is categorized as: Low risk < 2 Are you interested in bedside delivery of your medications? Yes Is Patient Psychosocially Complex?: No ASSESSMENT AND PLAN: Medical Needs: Medical Needs: Two or more chronic diseases Psychosocial Needs: Psychosocial Needs: None FREEDOM OF CHOICE EXPLAINED: [place] of Choice Given: Yes Level of Care [...] 04, 2020 TIME: 12:29 PM PAGER/CONTACT #: [phone] NoteHNO ID: [id number] Author: Olga Freedman PA-C Service: Orthopaedic Surgery Author Type: Physician American Sign Language Teacher Type: Progress Notes Filed: 10/04/2020 10:31 AM [...] mg ORAL 2 TIMES DAILY Given, 10/04 93710/03/201951 -- 10/03/201999 pneumatic compression stockings ([place]) 10/03/201999 graduated compression stockings ([place] VTE Prophylaxis: VTE prophylaxis appropriate POST OPERATIVE COMPLICATIONS: Complicated by: uneventful/none SIGNATURE: Olga Freedman PA-C PATIENT NAME: Julia Villeda DATE: October 04, 2020 TIME: 10:30 AM ETX#[id number] NoteHNO ID: [id number] Author: Ml Wilson APRN.RIVETING MACHINE OPERATOR Service: ? Author Type: Nurse Commercial Manager Type: Anesthesia Procedure Notes Filed: 10/03/2020 2:24 PM Note Text: ANESTHESIOLOGY PROCEDURE NOTE Spinal Block General Information Procedure Start Time/Medication Administration: 10/03/2020 1:28 PM Patient location during procedure: OR Timeout Performed Pre-procedure: timeout performed Consent Obtained: Yes Patient identity confirmed: arm band and patient Reason for Block: primary surgical anesthetic Staffing RIVETING MACHINE OPERATOR: Ml Wilson APRN.RIVETING MACHINE OPERATOR Preparation Sterility Preparation: hand hygiene performed prior [...] MPF SPINAL), 1.6 mL SIGNATURE: Ml Wilson APRN.CRNA PATIENT NAME: Julia Villeda DATE: October 03, 2020 TIME: 2:23 PM CSN: [id number] NoteHNO ID: [id number] Author: Ml Wilson APRN.CRNA Service: ? Author Type: Nurse Commercial Manager Type: Anesthesia Procedure Notes Filed: 10/03/2020 1:37 PM Note Text: ANESTHESIOLOGY PROCEDURE NOTE Peripheral Nerve Block General Information Procedure Start Time/Medication Administration: 10/03/2020 1:34 PM Patient location during procedure: OR Timeout Performed Pre-procedure: timeout performed Consent Obtained: Yes Patient identity confirmed: arm band, care steam conditioning operator and patient sedated or unresponsive Reason for [...] SIGNATURE: Ml Wilson APRN.CRNA PATIENT NAME: Julia Villead DATE: October 03, 2020 TIME: 1:36 PM CSN: [id number] HospitalEvaluation noteNort Arpeggi Other Evaluation noteNo assessment information available [facility] Work Phone: Evaluation noteNo InformationNort Arpeggi Other Evaluation note* Diagnosis Onset Date Resolution Status BMI 35.0-35.9,adult acute Bradley's disease acute Hypertension acute Sleep apnea treated with con tinuous positive airway pressure (CPAP) acute [facility] Work Phone: Evaluation note* Diagnosis History of PSVT (paroxysmal supraventricular tachycardia) Palpitations Primary hypertension Unspecified essential hypertension RBBB Pre-syncope Syncope and collapse Bradley's disease Chronic lymphocytic thyroiditis Obstructive sleep apnea syndrome Obstructive sleep apnea (adult) (pediatric) Abnormal EKG Nonspecific abnormal electrocardiogram (ECG) (EKG) documented in this encounter [place] Work Phone: Evaluation note* Diagnosis History of PSVT (paroxysmal supraventricular tachycardia) Palpitations Pre-syncope Syncope and collapse Abnormal EKG Nonspecific abnormal electrocardiogram (ECG) (EKG) documented in this encounter [place] Work Phone: Evaluation note* Diagnosis History of PSVT (paroxysmal supraventricular tachycardia) Palpitations Primary hypertension Unspecified essential hypertension RBBB Bradley's disease Chronic lymphocytic thyroiditis BMI 37.0-37.9, adult Never smoked tobacco High risk medication use Medication course changed Obstructive sleep apnea syndrome Obstructive sleep apnea (adult) (pediatric) Pre-syncope Syncope and collapse documented in this encounter [place] Work Phone: Evaluation note* Diagnosis Onset Date Resolution Status Aftercare following right hip joint replacement surger y acute Status post hip replacement acute [facility] Work Phone: Evaluation note* Diagnosis Pre-operative clearance- Primary Preoperative examination, unspecified Left knee pain, unspecified chronicity VONDA on CPAP Obstructive sleep apnea (adult) (pediatric) Essential hypertension Unspecified essential hypertension Other specified hypothyroidism Adverse effect of penicillamine, initial encounter Pre-op evaluation- Primary Preoperative examination, unspecified Primary osteoarthritis of right knee Primary localized osteoarthrosis, lower leg VONDA on CPAP Obstructive sleep apnea (adult) (pediatric) Essential hypertension Unspecified essential hypertension Other specified hypothyroidism Status post total knee replacement, right (10/03/20) [facility] Diagnosis Pre-operative clearance- Primary Preoperative examination, unspecified Left knee pain, unspecified chronicity VONDA on CPAP Obstructive sleep apnea (adult) (pediatric) Essential hypertension Unspecified essential hypertension Other specified hypothyroidism Adverse effect of penicillamine, initial encounter Pain Generalized pain Pre-op evaluation- Primary Preoperative examination, unspecified Primary osteoarthritis of right knee Primary localized osteoarthrosis, lower leg VONDA on CPAP Obstructive sleep apnea (adult) (pediatric) Essential hypertension Unspecified essential hypertension Other specified hypothyroidism [facility] Diagnosis Pre-operative clearance- Primary Preoperative examination, unspecified Left knee pain, unspecified chronicity VONDA on CPAP Obstructive sleep apnea (adult) (pediatric) Essential hypertension Unspecified essential hypertension Other specified hypothyroidism Adverse effect of penicillamine, initial encounter Pre-op evaluation- Primary Preoperative examination, unspecified Primary osteoarthritis of right knee Primary localized osteoarthrosis, lower leg VONDA on CPAP Obstructive sleep apnea (adult) (pediatric) Essential hypertension Unspecified essential hypertension Other specified hypothyroidism Pain- Primary Generalized pain [facility]* Diagnosis Onset Date Resolution Status Aftercare following right hip joint replacement surger y acute Status post hip replacement acute Aftercare following right hip joint replacement surger y acute Greater trochanteric bursitis of right hip acute Iliotibial band syndrome, right leg acute Status post hip replacement acute [facility] Work Phone: Evaluation note* Diagnosis Jaw pain, non-TMJ- Primary Essential hypertension (CMS/HCC) Unspecified essential hypertension Bradley's thyroiditis (CMS/HCC) Chronic lymphocytic thyroiditis IFG (impaired fasting glucose) Major depressive disorder, single episode, mild (HCC) (CMS/HCC) Major depressive disorder, single episode, mild Iliotibial band syndrome, right leg- Primary Greater trochanteric bursitis of right hip Right lumbar radiculopathy Thoracic or lumbosacral neuritis or radiculitis, unspecified History of total hip arthroplasty, right Iliotibial band syndrome, right leg- Primary Greater trochanteric bursitis of right hip Right lumbar radiculopathy Thoracic or lumbosacral neuritis or radiculitis, unspecified History of total hip arthroplasty, right [facility] Diagnosis Jaw pain, non-TMJ- Primary Essential hypertension (CMS/HCC) Unspecified essential hypertension Bradley's thyroiditis (CMS/HCC) Chronic lymphocytic thyroiditis IFG (impaired fasting glucose) Major depressive disorder, single episode, mild (HCC) (CMS/HCC) Major depressive disorder, single episode, mild Cortical age-related cataract of both eyes- Primary Iliotibial band syndrome, right leg- Primary Greater trochanteric bursitis of right hip Right lumbar radiculopathy Thoracic or lumbosacral neuritis or radiculitis, unspecified History of total hip arthroplasty, right [facility] Diagnosis Jaw pain, non-TMJ- Primary Essential hypertension (CMS/HCC) Unspecified essential hypertension Bradley's thyroiditis (CMS/HCC) Chronic lymphocytic thyroiditis IFG (impaired fasting glucose) Major depressive disorder, single episode, mild (HCC) (CMS/HCC) Major depressive disorder, single episode, mild Encounter for gynecological examination without abnormal finding Encounter for Papanicolaou smear of vagina Breast cancer screening by mammogram Iliotibial band syndrome, right leg- Primary Greater trochanteric bursitis of right hip Right lumbar radiculopathy Thoracic or lumbosacral neuritis or radiculitis, unspecified History of total hip arthroplasty, right [facility] Diagnosis Jaw pain, non-TMJ- Primary Essential hypertension (CMS/HCC) Unspecified essential hypertension Bradley's thyroiditis (CMS/HCC) Chronic lymphocytic thyroiditis IFG (impaired fasting glucose) Major depressive disorder, single episode, mild (HCC) (CMS/HCC) Major depressive disorder, single episode, mild Iliotibial band syndrome, right leg- Primary Greater trochanteric bursitis of right hip Right lumbar radiculopathy Thoracic or lumbosacral neuritis or radiculitis, unspecified History of total hip arthroplasty, right Iliotibial band syndrome, right leg- Primary Greater trochanteric bursitis of right hip Right lumbar radiculopathy Thoracic or lumbosacral neuritis or radiculitis, unspecified History of total hip arthroplasty, right [facility] Diagnosis Jaw pain, non-TMJ- Primary Essential hypertension (CMS/HCC) Unspecified essential hypertension Bradley's thyroiditis (CMS/HCC) Chronic lymphocytic thyroiditis IFG (impaired fasting glucose) Major depressive disorder, single episode, mild (HCC) (CMS/HCC) Major depressive disorder, single episode, mild Iliotibial band syndrome, right leg- Primary Greater trochanteric bursitis of right hip Right lumbar radiculopathy Thoracic or lumbosacral neuritis or radiculitis, unspecified History of total hip arthroplasty, right documented in [facility] encounter [facility]* Diagnosis SVT (supraventricular tachycardia) (CMS/HCC)- Primary Other specified cardiac dysrhythmias Chest pain, unspecified type Primary hypertension (CMS/HCC) Unspecified essential hypertension Obesity (BMI 30-39.9) Gastroesophageal reflux disease, unspecified whether esophagitis present documented in this encounter [facility]* Diagnosis Primary hypertension Unspecified essential hypertension Bradley's disease Chronic lymphocytic thyroiditis RBBB Sleep apnea treated with continuous positive airway pressure (CPAP) Never smoked tobacco BMI 34.0-34.9,adult Angina pectoris, unstable (Multi) Intermediate coronary syndrome Shortness of breath Medication course changed documented in this encounter [place] Work Phone: Evaluation note* Diagnosis Jaw pain, non-TMJ- Primary Essential hypertension (CMS/HCC) Unspecified essential hypertension Bradley's thyroiditis (CMS/HCC) Chronic lymphocytic thyroiditis IFG (impaired fasting glucose) Major depressive disorder, single episode, mild (HCC) (CMS/HCC) Major depressive disorder, single episode, mild Postoperative care for cataract- Primary Follow-up examination, following other surgery documented in this encounter [facility]* Diagnosis Jaw pain, non-TMJ- Primary Essential hypertension (CMS/HCC) Unspecified essential hypertension Bradley's thyroiditis (CMS/HCC) Chronic lymphocytic thyroiditis IFG (impaired fasting glucose) Major depressive disorder, single episode, mild (HCC) (CMS/HCC) Major depressive disorder, single episode, mild Postoperative care for cataract- Primary Follow-up examination, following other surgery documented in this encounter [facility]* Diagnosis Jaw pain, non-TMJ- Primary Essential hypertension (CMS/HCC) Unspecified essential hypertension Bradley's thyroiditis (CMS/HCC) Chronic lymphocytic thyroiditis IFG (impaired fasting glucose) Major depressive disorder, single episode, mild (HCC) (CMS/HCC) Major depressive disorder, single episode, mild Postoperative care for cataract- Primary Follow-up examination, following other surgery documented in this encounter [facility]* Diagnosis Pre-operative clearance Unspecified pre-operative examination Primary hypertension Unspecified essential hypertension History of PSVT (paroxysmal supraventricular tachycardia) BMI 36.0-36.9,adult High risk medication use Sleep apnea treated with continuous positive airway pressure (CPAP) Never smoked tobacco RBBB Bradley's disease Chronic lymphocytic thyroiditis documented in this encounter [place] Work Phone: History general Narrative - Reported* Type Description Date Medical History [place] Medical History Panic [place]acks Medical History Sleep Apnea Surgical History T&A 1955 Surgical History GUM SURGERY 1980 Surgical History D&C X 2 Surgical History cholecystectomy 2010 Surgical History total hystrectomy 04/2014 Surgical History rotator cuff rt shoulder 05/17 Surgical History knee replacement Hospitalization History SEE ABOVE SURGERY Hospitalization History [facility]-TOTAL HYSTRECTOMY 1 06/2013 [employer] [facility] Other [facility] Other [facility] general Narrative - Reported* Type Description Date Medical History [place] Medical History Panic [place] Medical History Sleep Apnea Surgical History T&A 195 Surgical History GUM SURGERY 1979 Surgical History D&C X 2 Surgical History cholecystectomy 2010 Surgical History total hystrectomy 04/2014 Surgical History rotator cuff rt shoulder 05/17 Surgical History knee replacement BILAT 10/21 Hospitalization History SEE ABOVE SURGERY Hospitalization History FR-TOTAL HYSTRECTOMY 1 06/2013 [employer] [facility] Other [facility] general Narrative - Reported* Type Description Date [...] Hospitalization History SEE ABOVE SURGERY Hospitalization History [facility]-TOTAL HYSTRECTOMY 1 06/2013 [employer] [facility] Other [facility] general Narrative - Reported* Type Description Date [...] Hospitalization History SEE ABOVE SURGERY Hospital[place] [facility] 06/2013 [employer] [facility] Other Hospital Discharge instructions Additional Instructions [facility]: Reason for referral (narrative)* Diagnostic Procedure Only (Routine) - Pending Review Specialty Diagnoses / Procedures Referred By Kirt coppola Referred To Contact XR IMAGING Diagnoses Pain Procedures XR KNEE GENERAL 4V AP BOTH/PA BOTH/LAT/MERC RIGHT RADIOLOGIC EXAM KNEE COMPLETE 4/MORE VIEWS Best Valera MD [address] [place] [address] [place] [address] Referral ID Status Reason Start Date Expiration Date Visits Requested Visits Authorized [id number] Pending Review Auto-Generat ed Referral 4 04/30/2025 1 1 [facility] for visit Narrative* Rehabilitation - Outpatient (Routine) - Authorized Specialty Diagnoses / Procedures Referred By Kirt coppola Referred To Contact Physical Therapy Diagnoses Iliotibial band syndrome, right leg Trochanteric bursitis, right hip Procedures OK PHYS THERAPY EVALUATION Herman Chang MD [address] [place] [address] Phone: tel: fax: Elkin Womack, PT [address] [place] [address] Phone: tel: fax: Referral ID Status Reason Start Date Expiration Date Visits Requested Visits Authorized [id number] Authorized Consult and Treat 04/03/2024 09/30/2024 60 60 [facility] Summary Purpose Family History No Family History [...] History of stroke Unknown Malignant neoplasm Unknown Relationship Condition Age at Onset Recorded Date/T macy father Myocardial infarction Unknown Dementia Unknown Malignant neoplasm of skin Unknown mother Malignant neoplasm of colon Unknown Cerebrovascular accident (CVA) Unknown daughter Attention deficit disorder Unknown father Malignant neoplasm Unknown Unknown Family history of mental disorder Unknown Heart disease Unknown mother Unknown History of stroke Unknown Malignant neoplasm [...] treated with continuous positive airway pressure (CPAP) Chief Complaint jaw and tight chest pain Chief Complaint jaw and tight chest pain 1 Year Follow Up Z96.649 - Presence of unspecified artificial hip j Reason for Visit Aftercare following right hip joint replacement surgery Status post hip replacement Chief Complaint jaw and tight chest pain 1 Year Follow Up Z96.649 Z47.1 Z96.641 Reason for Visit Aftercare following right hip joint replacement surgery Status post hip replacement Chief Complaint jaw and tight chest pain 1 Year Follow Up Z96.649 Z47.1 Z96.641 OP SP RT RADHA PAIN CONCERN FOR INJURY Z47.1 - Aftercare following joint replacement surg Reason for Visit Aftercare following right hip joint replacement surgery Status post hip replacement Aftercare following right hip joint replacement surgery Greater trochanteric bursitis of right hip Iliotibial band syndrome, right leg Status post hip replacement Chief Complaint Admit Date OP SP RT RADHA PAIN CONCERN FOR INJURY Oct shamika 2023 9:30am Z47.1 - Aftercare following joint replac ement surg April 02, 2024 9:32am Screening May 21, 2024 9:09am z79.899 i10 June 05, 2024 8: 21am Reason for Visit Admit Date Aftercare following right hip joint repl acement surgery April 02, 2024 9:30am Greater trochanteric bursitis of right h ip April 02, 2024 9:30am Iliotibial band syndrome, right leg Octo alia 2023 9:30am Status post hip replacement March 9:30am Reason for Referral Specialty Diagnoses / Procedures Referred By Kirt t Referred To Contact Diagnoses RBBB Procedures ECG 12 Lead Mary Alice Tatum MD [address] [facility] [address] [place] [address] Referral ID Status Reason Start Date Expiration Date V isits Requested Visits Authorized [id number] Authorized 02/24/2024 02/23/2025 1 1 Specialty Diagnoses / Procedures Referred By Contac t Referred To Contact Radiology Diagnoses History of PSVT (paroxysmal supraventricular tachycardia) Palpitations Pre-syncope Abnormal EKG Procedures Nuclear Stress Test CHG MYOCARDIAL SPECT MULTIPLE STUDIES Mary Alice Tatum MD [address] [place] [address] Referral ID Status Reason Start Date Expiration Date V isits Requested Visits Authorized [id number] Pending Review 08/26/2023 08/25/2024 5 5 Specialty Diagnoses / Procedures Referred By Contac t Referred To Contact Diagnoses History of PSVT (paroxysmal supraventricular tachycardia) Procedures ECG 12 Lead Mary Alice Tatum MD [address] [facility] [address] [place] [address] Referral ID Status Reason Start Date Expiration Date V isits Requested Visits Authorized [id number] Authorized 08/26/2023 08/25/2024 1 1 Specialty Diagnoses / Procedures Referred By Contac t Referred To Contact Cardiology Diagnoses History of PSVT (paroxysmal supraventricular tachycardia) Procedures Follow Up In Cardiology Mary Alice Tatum MD [address] [facility] [address] [place] [address] Mary Alice Tatum MD [address] [facility] [address] [place] [address] Referral ID Status Reason Start Date Expiration Date V isits Requested Visits Authorized [id number] Authorized 08/26/2023 08/25/2024 1 1 Additional Source Comments INFORMATION SOURCE (unrecogn ized section and content) DATE CREATED AUTHOR 10/05/2020 [facility] DATE CREATED AUTHOR AUTHOR'S ORGANIZ ATION 07/26/2021 [facility] DATE CREATED AUTHOR AUTHOR'S ORGANIZ ATION 10/20/[address] [facility] dical Specialist DATE CREATED AUTHOR AUTHOR'S ORGANIZ ATION 09/14/2022 [facility] DATE CREATED AUTHOR AUTHOR'S ORGANIZ ATION 10/02/[address] [facility] DATE CREATED AUTHOR AUTHOR'S ORGANIZ ATION 06/12/2024 [facility] DATE CREATED AUTHOR AUTHOR'S ORGANIZ ATION 07/03/[address] [facility] dical Specialists EPIC DATE CREATED AUTHOR AUTHOR'S ORGANIZ ATION 07/06/2024 [facility] Amb[facility] REASON FOR VISIT (unrecogniz ed section and content) Reason Comments Establish Care Svt petznick Specialty Diagnoses / Procedures Referred By Contac t Referred To Contact Diagnoses History of PSVT (paroxysmal supraventricular tachycardia) Procedures ECG 12 Lead Mary Alice Tatum MD [address] [place] [address] Referral ID Status Reason Start Date Expiration Date V isits Requested Visits Authorized [id number] Authorized 08/26/2023 08/25/2024 1 1 Specialty Diagnoses / Procedures Referred By Contac t Referred To Contact Radiology Diagnoses History of PSVT (paroxysmal supraventricular tachycardia) Palpitations Pre-syncope Abnormal EKG Procedures Nuclear Stress Test CHG MYOCARDIAL SPECT MULTIPLE STUDIES Mary Alice Tatum MD [address] [place] [address] Referral ID Status Reason Start Date Expiration Date V isits Requested Visits Authorized [id number] Authorized 08/26/2023 08/25/2024 5 5 Reason Comments Follow-up Follow up after stre ss test Specialty Diagnoses / Procedures Referred By Contac t Referred To Contact Cardiology Diagnoses History of PSVT (paroxysmal supraventricular tachycardia) Procedures Follow Up In Cardiology Mary Alice Tatum MD [address] [place] [address] Mary Alice Tatum MD [address] [place] [address] Referral ID Status Reason Start Date Expiration Date V isits Requested Visits Authorized [id number] Authorized 08/26/2023 08/25/2024 1 1 Reason Comments Eye Exam Cataract Reason Comments Gynecologic Exam LMP: LAVH BSO 2014HR T: NoneLast pap 04-19-23 neg.Last [place]20[place] [facility]Den[place] breast or urinary concerns. Hemorrhoids C/o straining- blood with stools, but thinks d/t hemorrhoid. Reason Comments Hospital Follow-up Reason Comments Follow-up [facility] 02/05/24 Specialty Diagnoses / Procedures Referred By Kirt coppola Referred To Contact Diagnoses RBBB Procedures ECG 12 Lead Mary Alice Tatum MD [address] [place] [address] Referral ID Status Reason Start Date Expiration Date V isits Requested Visits Authorized [id number] Authorized 02/24/2024 02/23/2025 1 1 Reason Comments Post-op Reason Comments Post-op Follow-up Reason Comments Follow-up 6 months Specialty Diagnoses / Procedures Referred By Kirt coppola Referred To Contact Cardiology Diagnoses Primary hypertension Procedures Follow Up In Cardiology Mary Alice Tatum MD [address] [address] Phone: tel: fax: Mary Alice Tatum MD [address] [place] [address] Phone: tel: fax: Referral ID Status Reason Start Date Expiration Date V isits Requested Visits Authorized [id number] Authorized 12/30/2023 12/29/2024 1 1 Care Teams (unrecognized sec tion and content) Team Status: Active Member Role Status Dates Nancy Jha DO Primary Care Provider Active Team Status: Inactive Member Role Status Dates Nanyc Jha DO Primary Care Patti alcantara Attending Provider Active Start: July 17, 2023 End: July 17, 2023 Team Status: Inactive Member Role Status Dates Nancy Jha DO Primary Care Provider Active Start: August 26, 2023 End: August 26, 2023 Connie Levine NP Attending Provider Active Start: August 26, 2023 End: August 26, 2023 Team Status: Active Member Role Status Dates Provider Conversion Attending Provider Active St art: May 09, 2023 Team Status: Inactive Member Role Status Dates Nancy Jha DO Primary Care Provider Active Start: May 09, 2023 End: May 09, 2023 LEVI Hansen Attending Provider Active Start: May 09, 2023 End: May 09, 2023 Team Status: Inactive Member Role Status Dates Nancy Jha , Primary Care Provider Active Start: May 20, 2023 End: May 20, 2023 Referral Self Attending Provider Active Start: 2022 End: May 20, 2023 Team Status: Inactive Member Role Status Dates Nancy Jha , DO Primary Care Provider Active Frank Guzman , Attending Provider Active Team Status: Inactive Member Role Status Dates Nancy Jha , DO Primary Care Provider Active Connie Levine NP Attending Provider Active Team Status: Inactive Member Role Status Dates Nancy Jha , DO Primary Care Provider Active Herman Chang II, MD Attending Provider Active Team Status: Inactive Member Role Status Dates Nancy Jha , DO Primary Care Provider Active Frandy Pedersen PA-C Emergency Provider Active Team Status: Inactive Member Role Status Dates Nancy Jha , DO Primary Care Provider, Attending Provider Active Team Status: Active Member Role Status Dates Nancy Luiz , DO Primary Care Provider Active Herman Chang II, MD Attending Provider Active Team Status: Inactive Member Role Status Dates Nancy Jha , DO Primary Care Provider Active LEVI Hansen Attending Provider Active Team Status: Inactive Member Role Status Dates Nancy Jha , DO Primary Care Provider Active Referral Self Attending Provider Active Photographic Developer [employer] Printer Relationship Specialty Start Date End Date Nancy Jha DO [address] [place] [address] PCP - General Family Medicine 08/26/23 Photographic Developer [employer] Printer Relationship Specialty Start Date End Date Nancy Jha DO [address] [place] [address] PCP - General Family Medicine 08/26/23 Photographic Developer And Printer Relationship Specialty Start Date End Date Nancy Jha DO [address] [place] [address] PCP - General Family Medicine 08/26/23 Photographic Developer And Printer Relationship Specialty Start Date End Date Nancy Jha DO [address] [place] [address] PCP - General Family Medicine 08/26/23 Photographic Developer And Printer Relationship Specialty Start Date End Date Nancy Jha DO [address] [place] [address] PCP - General Family Medicine 08/26/23 Team Status: Inactive Member Role Status Dates Nancy Jha DO Primary Care Provider Active Start: February 05, 2024 End: February 05, 2024 Mikey Gallegos MD Emergency Provider Active St art: February 05, 2024 End: February 05, 2024 Team Status: Inactive Member Role Status Dates Nancy Jha DO Primary Care Provider Active Start: February 24, 2024 End: February 24, 2024 Herman Chang II, MD Attending Provider Active Start: February 24, 2024 End: February 24, 2024 Team Status: Active Member Role Status Dates Nancy Jha DO Primary Care Provider Active Start: February 24, 2024 Herman Chang II, MD Attending Provider Active Start: February 24, 2024 Photographic Developer And Printer Relationship Specialty Start Date End Date Nancy Jha DO [address] [place] [address] PCP - General Family Medicine 11/11/18 Photographic Developer And Printer Relationship Specialty Start Date End Date Nancy Jha DO [address] [place] [address] PCP - General Family Medicine 11/11/18 Photographic Developer And Printer Relationship Specialty Start Date End Date Nancy Jha DO [address] [place] [address] PCP - General Family Medicine 11/11/18 Team Status: Inactive Member Role Status Dates Nancy Jha DO Primary Care Provider Active Start: April 02, 2024 End: April 02, 2024 Herman Chang II, MD Attending Provider Active Start: April 02, 2024 End: April 02, 2024 Team Status: Active Member Role Status Dates Nancy Jha DO Primary Care Provider Active Start: April 02, 2024 Herman Chang II, MD Attending Provider Active Start: April 02, 2024 Photographic Developer And Printer Relationship Specialty Start Date End Date Nancy Jha DO [address] [place] [address] PCP - General 10/21/22 Photographic Developer And Printer Relationship Specialty Start Date End Date Nancy Jha DO [address] [place] [address] PCP - General 10/21/22 Photographic Developer And Printer Relationship Specialty Start Date End Date Nancy Jha DO [address] [place] [address] PCP - General 10/21/22 Photographic Developer And Printer Relationship Specialty Start Date End Date Nancy Jha DO [address] [place] [address] PCP - General 10/21/22 Photographic Developer And Printer Relationship Specialty Start Date End Date Nancy Jha DO [address] [place] [address] PCP - General 10/21/22 Photographic Developer And Printer Relationship Specialty Start Date End Date Nancy Jha DO [address] [place] [address] PCP - General 10/21/22 Photographic Developer And Printer Relationship Specialty Start Date End Date Nancy Jha DO [address] [place] [address] PCP - General 10/21/22 Photographic Developer And Printer Relationship Specialty Start Date End Date Nancy Jha DO [address] [place] [address] PCP - General 10/21/22 Photographic Developer And Printer Relationship Specialty Start Date End Date Nancy Jha DO [address] [place] [address] PCP - General 10/21/22 Photographic Developer And Printer Relationship Specialty Start Date End Date Nancy Jha DO [address] [place] [address] PCP - General 10/21/22 Photographic Developer And Printer Relationship Specialty Start Date End Date Nancy Jha DO [address] [place] [address] PCP - General 10/21/22 Team Status: Inactive Member Role Status Dates Nancy Jha DO Primary Care Provider Active Start: May 21, 2024 End: May 21, 2024 Frank Guzman DO Attending Provider Active Start: May 21, 2024 End: May 21, 2024 Team Status: Inactive Member Role Status Dates Nancy Jha DO Primary Care Provider Active Start: June 05, 2024 End: June 05, 2024 Mary Alice Tatum MD Attending Provider Active Star t: June 05, 2024 End: June 05, 2024 Photographic Developer And Printer Relationship Specialty Start Date End Date Nancy Jha DO [address] [place] [address] PCP - General 10/21/22 Photographic Developer And Printer Relationship Specialty Start Date End Date Nancy Jha DO [address] [place] [address] PCP - General Family Medicine 08/26/23 Goals (unrecognized section and content) Goals may be documented in a n alternate section Source Comments (unrecognize d section and content) In the event this informatio n is protected by the Federal Confidentiality of Alcohol and Drug Abuse Patient Records regulations: The Federal rules restrict any use of the information to criminally investigate or prosecute any alcohol or drug abuse patient.[facility] the event this information is protected by the Federal Confidentiality of Alcohol and Drug Abuse Patient Records regulations: The Federal rules restrict any use of the information to criminally investigate or prosecute any alcohol or drug abuse patient.[facility] the event this information is protected by the Federal Confidentiality of Alcohol and Drug Abuse Patient Records regulations: The Federal rules restrict any use of the information to criminally investigate or prosecute any alcohol or drug abuse patient.[facility] FOR RECORDS PERTAINING TO PATIENTS WHO ARE [...] BE BASED ON THE PRIMARY CLINICAL RECORDS. [employer] [facility]. provides no warranty or guarantee of the accuracy or completeness of information in this document.
[2024-07-09 08:44] LABS: Glucometer 95 mg/dL (74-106)
[2024-07-09] MEDS: LACTATED RINGER'S SOLUTION 1,000 ML 50 ML IV (08:53)
[2024-07-09] MEDS: SCOPOLAMINE 1 MG/3 DAYS TRANSDERM PATCH 1 PATCH TD (08:57)
[2024-07-09] MEDS: VANCOMYCIN HCL 1,250 MG in 0.9 % SODIUM CHLORIDE 250 ML 166.667 MG IV (09:58)
--- NOTE | 2024-07-09 10:40 | P.ORON_ITS ---
Brief Operative Note Date of procedure: 07/09/24 Pre-op diagnosis general: Left tailor's bunion and midfoot arthritis Post-op diagnosis: same as pre-op Procedure: Procedure performed: Left partial fifth metatarsal resection, ostectomy naviculocuneiform joint Indications for procedure: Patient is a 74-year-old female who underwent left tailor's bunionectomy and correction of fifth toe contracture on 09/10/2022. Unfortunately she developed recurrence and painful skin lesions on the plantar and lateral aspect of the fifth metatarsal head. She has pain and irritation with rubbing in her shoe which prevents her from performing activities of daily living/recreation comfortably. She also has had worsening pain over an osteophyte at the naviculocuneiform joint medially which also becomes irritated in a shoe. Due to the recurrence and failure to respond to nonsurgical treatment including but not limited to shoe modification, conservative management of the skin lesions with trimming and moisturizer, OTC pain medicine she wished to undergo surgical correction and I recommended the above procedures. I did discuss with her alternative treatment options including naviculocuneiform joint fusion but given the lengthy recovery patient preferred ostectomy knowing that there is a chance of recurrence as well as inability to reduce pain in this area. Further, she is aware that the fifth toe may be nonfunctional and develop further deformity. All questions were answered to hers and her 's expectation. 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 Bone quality was soft and consistent with osteopenia/osteoporosis. Osteophyte/bony prominence noted on the medial and dorsal medial aspect of the medial naviculocuneiform joint. Bone quality in this area was also soft and consistent with osteopenia/osteoporosis Procedure in detail: Patient was identified in preoperative holding by myself which time correct side and site were marked and consent was obtained. Patient was brought back to the operating theater placed on table in supine position and preoperative antibiotics were started. IV sedation was administered and the left lower extremity was prepped and draped in usual sterile fashion with an ankle tourniquet. Formal timeout was performed and the foot was exsanguinated and tourniquet inflated. Local anesthesia utilizing 10 cc of 1% lidocaine plain and 10 cc of 0.5% Marcaine plain were injected as 1/5 ray block and proximal to the medial naviculocuneiform joint. Incision was placed over the dorsal lateral aspect of the distal fifth me tatarsal and to the level of the proximal phalanx base. Combination of sharp and blunt dissection with all bleeders being coagulated gained access to the fifth metatarsal head which was released of all periarticular attachments. Then a sagittal saw was used to remove the fifth metatarsal head with a slight bevel directed plantarly. Fifth metatarsal head was excised and passed the back table. The fifth toe was now reduced when the foot was unloaded and loaded therefore was not pinned. Surgical site was irrigated with copious saline. Incision was placed over the medial aspect of the naviculocuneiform joint. Combination of sharp and blunt dissection with all bleeders being coagulated gained access to the joint and the associated osteophyte. The osteophyte was removed with osteotomes and rongeur's then smoothed and contoured with a rasp. Surgical site was irrigated with copious saline and the incisions were closed in layers. The tourniquet was deflated with a prompt hyperemic response and a dry sterile dressing and surgical shoe were applied. Patient tolerated procedure and anesthesia well was transferred to the recovery room with vital signs stable and brisk capillary refill to left toes. Postoperative plan: Discharge home under 's care Weightbearing as tolerated in surgical shoe Change dressing daily washing the operative foot with soap and water Ice and elevation Prescriptions were sent to her pharmacy using my office EMR Follow-up with me in 1 week Implants: None Anesthesia: MAC and local Surgeon: Sixto Smith Estimated blood loss (mL): 10 Pathology: none sent Condition: stable Disposition: PACU
--- NOTE | 2024-07-09 10:48 | XR_ITS ---
The [address] [address] Patient Name: HUSSAIN VILLEDA MRN: [id number] date: 1950 Sex: F Assigned Patient Location: [facility] Current Patient Location: Accession/Order Number: [id number] Exam Date: 07/09/2024 12:25 Report Date: 07/10/2024 15:48 At the request of: MARGARITO JONES Procedure: XR foot LT min 3V PROCEDURE: XR foot LT min 3V COMPARISON: 12/24/2023 HISTORY: Tailors bunion/osteophyte juliana-cun jt FINDINGS: BONES:Interval shave osteotomy involving the medial aspect of the navicular and medial cuneiform. Resection head of the fifth metatarsal. No acute fracture or dislocation. Moderate plantar enthesopathic spurring of the calcaneus SOFT TISSUES:Postprocedural subcutaneous air EFFUSION:None visible. OTHER: Negative. XR/XR foot LT min 3V IMPRESSION: Interval shave osteotomy of the medial navicular and medial cuneiform. Electronically authenticated by: ELKIN COLLIER Date: 07/10/2024 15:48
[2024-07-09] MEDS: LIDOCAINE HCL 1% 100 MG/10 ML MDV 20 ML INJ (11:24)
[2024-07-09] MEDS: BUPIVACAINE HCL 0.5% PF 50 MG/10 ML VIAL INJ (11:24)
[2024-07-09 12:23] VITALS: BP 124/72; PULSE 65; TEMP 36.8; O2SAT 95
[2024-07-09] MEDS: ACETAMINOPHEN 500 MG TABLET 1000 MG PO (12:30)
[2024-07-09 12:38] VITALS: BP 93/78; PULSE 65; O2SAT 94
[2024-07-09 12:50] LABS: Glucometer 88 mg/dL (74-106)
[2024-07-09 12:53] VITALS: BP 133/69; BP 148/72; PULSE 54; PULSE 58; TEMP 36.7; TEMP 36.8; O2SAT 97; O2SAT 98
[2024-07-09 13:09] VITALS: BP 144/72; PULSE 65; TEMP 36.6; O2SAT 96
[2024-07-09 13:39] VITALS: BP 146/76; PULSE 59; TEMP 36.8; O2SAT 96
== END 2024-07-09 13:39 | disposition home or self-care (01) ==
PROVIDERS: PCP Family Medicine; Visit Provider Podiatrist Foot & Ankle Surgery
PROC: (CPT 1480; principal; 2024-07-09 09:40)
DX: M19.072 Primary osteoarthritis, left ankle and foot (principal); M21.622 Bunionette of left foot; G47.33 Obstructive sleep apnea (adult) (pediatric); Z90.49 Acquired absence of other specified parts of digestive tract; Z90.710 Acquired absence of both cervix and uterus; R06.09 Other forms of dyspnea; I10 Essential (primary) hypertension; K21.9 Gastro-esophageal reflux disease without esophagitis; E06.3 Autoimmune thyroiditis
CPT/HCPCS: 28110; 28304; 36415; 73630; 82948; J0665; J2250; J2704; J3010; J3370

== ENCOUNTER 2025-04-19 14:35 | Outpatient (OUT) | payer OTHER, SELFPAY ==
--- NOTE | 2025-04-19 14:38 | XR_ITS ---
The [address] [address] Patient Name: HUSSAIN VILLEDA MRN: [id number] date: 1950 Sex: F Assigned Patient Location: [facility] Current Patient Location: [facility] Accession/Order Number: [id number] Exam Date: 04/19/2025 14:42 Report Date: 04/19/2025 21:44 At the request of: MARGARITO JONES DPIlene Procedure: XR foot LT min 3V XR foot LT min 3V 04/19/2025 2:46 PM SIGNS AND SYMPTOMS: Lateral left foot pain PROTOCOL: 3 views of the left foot COMPARISON: None FINDINGS: Degenerative changes are noted between the navicular and medial cuneiform. 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 This is of uncertain etiology but appears to be chronic. Degenerative changes are noted at the first metatarsophalangeal joint. There is plantar surface calcaneal spurring. There is no fracture or dislocation. XR/XR foot LT min 3V IMPRESSION: There is no fracture or dislocation. Degenerative changes are noted between the navicular and medial cuneiform. 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 This is of uncertain etiology but appears to be chronic. Degenerative changes are noted at the first metatarsophalangeal joint. Impression dictated by: Gene Cummings M.D. 04/19/2025 9:44 PM Dictation Location: [place] [address] Electronically authenticated by: [id number] Y Date: 04/19/2025 21:44
--- OUTSIDE RECORDS SUMMARY | 2025-04-19 14:41 | XMS_ITS | CCD ---
Author Organization [facility] [employer] Care Team Providers Care Water Chemist Name Role Phone Danielle Barros Unavailable Mary Alicea Unavailable DO Nancy Jha Primary Care Provider DO Frank Guzman Attending Provider RIDGE Levine Attending Provider [phone] MD Herman Chang II Attending Provider Herman Chang II Unavailable Keyshawn Acosta Unavailable PetDO Nancy alvarez Primary Care Provider MD Herman Chang II Attending Provider RIDGE Levine Attending Provider [phone] MARGARITO JONES Admitting Unavailable NANCY JHA [...] Unavailable DO Nancy Jha Primary Care Provider ARIELLA Pedersen Emergency Provider [phone] DO Nancy Jha Attending Provider DO Nancy Jha Primary Care Provider MD Herman Chang II Attending Provider Petznick, DO Nancy Primary Care Provider Petznick, DO Nancy Primary Care Provider MD Herman Chang II Attending Provider [phone] Petznick, DO Nancy Primary Care Provider MD Herman Chang II Attending Provider [phone] Amber Wang Unavailable Petznick, DO Nancy Primary Care Provider [phone] MD Herman Chang II Attending Provider LEVI Wang Attending Provider Petznick, DO Nancy Primary Care Provider MD Herman Chang II Attending Provider Self, Referral Attending Provider Unavailable Petznick, DO Nancy Primary Care Provider Petznick, DO Nancy Attending Provider Petznick, DO Nancy Primary Care Provider Petznick, DO Nancy Attending Provider Petznick Nancy LEGGETT Primary Care Provider MARY ALICE TATUM Referring Unavailable PETTEAICKNANCY Primary Care Unavailable MARY ALICE TATUM Referring Unavailable PETZNICK, NANCY Slaughter Primary Care Unavailable MARY ALICE TATUM Referring Unavailable PETZNICK, NANCY Slaughter Primary Care Unavailable Petznick, DO Nancy Primary Care Provider MD Mikey Gallegos Emergency Provider MD Herman Chang II Attending Provider [phone] Petznick Nancy LEGGETT Primary Care Provid er Petznick Nancy LEGGETT Primary Care Provider [phone] Petshira, Nancy Primary Care Unavailable Mary Alice Tatum Attending Unavailable Mary Alice Tatum Admitting Unavailable Petznick, Nancy Primary Care Unavailable Frank Guzman Attending Unavailable Frank Guzman Admitting Unavailable Herman Chang II Attending Unavailabl e [place] II, Herman Odom Admitting Unavailabl e Petznick, Nancy Primary Care Unavailable Bernardo ROLDAN, Herman Odom Attending Unavailabl e [place] II, Herman Odom Admitting Unavailabl e Petznick, Nancy Primary Care Unavailable Petznick, Nancy Admitting Unavailable Petznick, Nancy Attending Unavailable Petznick, Nancy Primary Care Unavailable Mikey Gallegos Attending Unavailable Mikey Gallegos Admitting Unavailable Petznick, Nancy Primary Care Unavailable Petznick DO, Nancy Primary Care Provider [phone] Herman Chang MD Attending Provider Frank Guzman DO Attending Provider Mary Alice Tatum MD Attending Provider MARY ALICE TATUM Attending Unavailable PETZNICK, NANCY [...] Unavailable PETZNICK, NANCY C Primary Care Unavailable Petznick DONancy Primary Care Provider Mary Alice Tatum MD Attending Provider JACI BRANDT Attending Unavailable JACI BRANDT Attending Unavailable JACI BRANDT Attending Unavailable ELKIN WOMACK Attending Unavailable HIGHLANDERMARGARITO Referring Unavailable SHANTAELKIN Attending Unavailable HIGHLANDERMARGARITO Referring Unavailable SHANTAELKIN Attending Unavailable HIGHLANDERMARGARITO Referring Unavailable SHANTAELKIN Attending Unavailable HIGHLANDERMARGARITO Referring Unavailable SHANTAELKIN Attending Unavailable HIGHLANDERMARGARITO Referring Unavailable PETZNICKRADHA Attending Unavailable PETZNICK, NANCY C Referring Unavailable SHANTAELKIN Attending Unavailable HIGHLANDERMARGARITO Referring Unavailable SHANTAELKIN Attending Unavailable HIGHLANDERMARGARITO Referring Unavailable SHANTAELKIN Attending Unavailable HIGHLANDERMARGARITO Referring Unavailable SHANTAELKIN Attending Unavailable HIGHLANDERMARGARITO Referring Unavailable SHANTAELKIN Attending Unavailable HIGHLANDERMARGARITO Referring Unavailable PETZNICK, NANCY C Attending Unavailable PETZNICKNANCY Attending Unavailable PETSHIRA, NANCY Slaughter Attending Unavailable NANCY JHA Referring Unavailable ELKIN WOMACK Attending Unavailable HERMAN CHANG Referring Unavailable JACI BRANDT Attending Unavailable FRANK GUZMAN Attending Unavailable CASSANDRA PAYTON Attending Unavailable HERMAN CHANG Referring Unavailable ELKIN WOMACK Attending Unavailable HERMAN CHANG Referring Unavailable ELKIN WOMACK Attending Unavailable HERMAN CHANG Referring Unavailable JACI BRANDT Attending Unavailable JACI BRANDT Attending Unavailable JACI BRANDT Attending Unavailable ELKIN WOMACK Attending Unavailable MARGARITO JONES Referring Unavailable ELKIN WOMACK Attending Unavailable HIGHLANDERMARGARITO Referring Unavailable JACI BRANDT Attending Unavailable Allergies Allergy ClassificationReported Allergen(s)Allergy TypeDate of OnsetReaction(s) Facility (13 sources)Bee/Wasp/Ant venomPropensity to adverse reactionsUnkRoger Williams Medical Center [employer] Other (20 sources)Iodine; Translations: [IODINE]Drug Kjyevsm37-39-5154igaw, Itching, [facility]onComment on above:Pt states both internal & external iodine (20 sources)Latex; Translations: [LATEX]Propensity to adverse reactions 20-87-0542cmjr, Itching, [facility] (20 sources)Penicillin; Translations: [penicillin]Drug Nmjxwec96-49-7278umtj, ItchingThe [facility] (20 sources)ShellfishPropensity to adverse ihcbkkxvs49-81-8840IR Upset, Nausea/vomitingKindred [facility] [employer] Other (13 sources)paper tape- instead of regular tape to avoid blistPropensity to adverse reactionsProvidence City Hospital [employer] Other (4 sources)Adhesive agent; Translations: [ADHESIVE]Drug allergy (disorder) 58-63-1653Zujozyi, Rash, UnknownThe [facility] (1 source)bee venomDrug allergy (disorder)[facility] (1 source)IodineDrug AllergyThe [facility] (1 source)LatexDrug allergy (disorder)[facility] (1 source)ShellfishDrug allergy (disorder)The [facility] (20 sources)Penicillins; Translations: [Penicillins]Allergy to substance 99-10-8748Zlflets, RashLima City Hospital (20 sources)Shellfish; Translations: [shellfish derived]Allergy to substance 41-09-3656Mdiolfh Reaction, VomitingLima City Hospital (20 sources)venom-honey bee; Translations: [venom-honey bee]Allergy to substance 61-52-8553NckhlAwtquqcjyLima City Hospital (17 sources)Adhesive Tape; Translations: [adhesive tape]Allergy to substance 46-57-6245HhwyGhdsznncxWilson Memorial Hospital (14 sources)bee venom protein (honey bee); Translations: [BEE VENOM PROTEIN (HONEY BEE)]Allergy to dyeuwdbzx45-54-0527Rbearufm, UnknownLima City Hospital (2 sources)paper tape- instead of regularAllergy to jbhayuphj59-25-2093ClhkpcsslLima City Hospital (9 sources)Adhesive agentDrug Aqmmiqxklfx35-52-9056Owjuovj, Rash, Unknown [facility] (20 sources)Metoprolol; Translations: [METOPROLOL]Drug Wkjwkgm97-14-8595 Headache, Dizziness, Nausea/vomiting, GI intolerancePremier Health (2 sources)SHELLFISH CONTAINING PRODUCTS; Translations: [SHELLFISH CONTAINING PRODUCTS]Propensity to adverse reactions to food (disorder)77-65-3101SJAv[facility] (3 sources)Adhesive TapeAllergy to eskgndpcn79-49-8533ZrmiTgudiawiv Clinic (20 sources)Penicillin GDrug Guxhlhw46-52-5270Cdvb, Itching, UnknownSS[facility] (3 sources)bee stings [Other]Propensity to adverse xyzufnquy90-57-5178Kjmcyjsc [facility] (20 sources)Honey bee venomAllergy to xkihwsejv31-85-3077Lwhiqyut, [facility] (20 sources)LatexAllergy to sywdxenkv29-42-1951Khinmfu, Rash, UnknownSSM Rehab (20 sources)PrednisoneAllergy to hxctebomt84-65-1192CFOA [facility] (20 sources)ShellfishPropensity to adverse clmyccfrs10-02-1571AGLG [facility] (20 sources)Shellfish-Derived ProductsDrug Bilngcq66-02-5793RLLW Healthcare (20 sources)Wound Dressing AdhesiveDrug Tpeudga10-83-9078Yiqmkso, Rash, Unknown [facility] (1 source)IodineDrug Bmmotix68-62-8846CysxqsoziLima City Hospital [facility]ository (1 source)LatexDrug allergy (disorder)46-11-2149NasjochzzLima City Hospital [facility]ository (20 sources)Isosorbide; Translations: [ISOSORBIDE]Drug Dzugvcu00-06-3069 [facility] Work Phone: (2 sources)IsosorbideDrug Yvhxudu38-28-1829IncibajayTwqccoqhmgCleveland Clinic Foundation Work Phone: (1 source)LoperamideDrug Fccqhid75-00-1265BzgoxtdBcpqlwrojgUniversity Hospitals [facility] Work Phone: (1 source)predniSONEDrug Kiwmblh03-86-5163SjfjdekpMwrocqmxtxPremier Health Work Phone: (2 sources)Shellfish Protein-Containing Drug ProductsDrug Jmquaah83-63-7349PWJO Healthcare Medications Current Medications MedicationDrug Class(es)DatesSig (Normalized)Sig (Original)acetaminophen 500 mg oral tablet (7 sources)Start: 46-06-2588zkpc 2 tablets by mouth every eight hours for pain Acetaminophen 500 MG 2 tablets for pain Orally every 8 hrs for 30 days MED TO BED UPON DISCHARGE DOS: 02/11/2023 Jan, ActiveStart: 41-15-0752byrb 2 tablets by mouth every four hours as neededacetaminophen (TYLENOL) 325 mg tablet Take 2 tablets by mouth every 4 hours as needed for Pain. 100tablet 10/04/2020 Activeascorbic acid 1000 mg oral tablet (20 sources)Vitamin CStart: 93-73-1143tisd 1 tablet by mouth once dailyAscorbic Acid (Vitamin C) (Vitamin C) 1,000 mg Tablet Active 1000 MG PO Daily October 17, 2022 12:00amVitamin C Activeaspirin 81 mg delayed release oral tablet (20 sources)Platelet Aggregation Inhibitor, Nonsteroidal Anti-inflammatory Drug Start: 11-73-6536fpfsxsu 81 MG EC tablet Daily 02/24/2024 ActiveStart: 40-22-6338opea 1 tablet by mouth twice dailyAspirin 81 81 MG 1 tablet Orally Twice a day for 35 days MED TO BED UPON DISCHARGE DOS: 02/11/2023 Jan, ActiveStart: 07-90-2737mamr 1 tablet by mouth twice dailyaspirin, enteric coated (ASPIRIN, ENTERIC COATED) 81 mg EC tablet Take 1 tablet by mouth twice daily. 84 tablet 10/04/2020 Activecholecalciferol 0.125 mg oral tablet (20 sources)Vitamin DStart: 50-56-6145nwpj 1 tablet by mouth once daily Cholecalciferol (Vitamin D3) (Vitamin D3) 125 mcg (5,000 unit) Tablet Active 8000 UNIT PO Daily 2022 12:00amStart: 23-51-9655foit 1 tablet by mouth once dailyCholecalciferol (Vitamin D3) (Vitamin D3) 125 mcg (5,000 unit) Tablet Active 55250 UNIT PO Daily October 17, 2022 12:00amcholecalciferol (Vitamin D-3) 25 MCG (1000 UT) capsule Activetake 2 tablets by mouth once dailycholecalciferol (Vitamin D3) 5,000 Units tablet Take 2 tablets (10,000 Units) by mouth once daily. Activecholecalciferol, vitamin D3, 4,000 unit cap Take 6,000 Units by mouth. Activeclindamycin 300 mg oral capsule (20 sources)Lincosamide AntibacterialStart: 55-26-3993shcj 1 capsule by mouth twice dailyClindamycin Hcl 300 mg capsule Active 300 MG PO Twice daily August 31, 2024 12:00amStart: 01-24-2021 End: 92-27-2756prikhpysvwq (Cleocin) 300 mg capsule Take 1 capsule (300 mg) by mouth. Before and after dental appointments 01/24/2021 ActiveStart: 01-24-2021 take 2 capsules by mouth every hourClindamycin HCl 300 MG 2 capsules Orally 1 hour prior to procedure for 1 day(s) May, Activetake 2 capsules by mouth every eight hoursClindamycin HCl 300 MG 2 capsules Orally every 8 hrs Active clonazePAM 0.5 mg oral tablet (20 sources)BenzodiazepineStart: 41-73-6854fnsd 1 tablet by mouth twice daily as needed for anxietyclonazePAM (KlonoPIN) 0.5 MG tablet Indications: Anxiety Take 1 tablet (0.5 mg) by mouth 2 (two) times a day as needed for anxiety 25 tablet 11/04/2023 ActiveStart: 91-11-9368eyzp 1 tablet by mouth once daily as needed Clonazepam 0.5 mg tablet Active 0.5 MG PO Daily as needed for Panic Attack(S) January 29, 2023 12:00amCOMPOUNDED PRESCRIPTION (3 sources)Start: 01-96-1109OJZEWIDGTL PRESCRIPTION tiest 2.5mg sr one cap twice daily 0 0 11/05/2006 Prhwag19 hr dilTIAZem hydrochloride 120 mg extended release oral capsule (20 sources)Calcium Channel BlockerStart: 65-18-9190rhlu 1 capsule by mouth once dailyDiltiazem Hcl 240 mg capsule,extended release 24 hr Active 240 MG PO Daily April 02, 2024 12:00amStart: 09-30-2023 End: 27-84-0392evxx 1 capsule by mouth in the morning, then take 1 capsule by mouth every twenty-four hoursdilTIAZem CD (Cardizem CD) 120 MG 24 hr capsule Take 120 mg by mouth in the morning. 09/30/2023 Activedocusate sodium 100 mg oral capsule (2 sources)Start: 18-98-5182hicg 1 capsule by mouth twice dailydocusate sodium (COLACE) 100 mg capsule Take 1 capsule by mouth twice daily. 20 capsule 10/04/2020 Activedoxycycline hyclate 100 mg oral capsule (4 sources)Tetracycline-class DrugStart: 08-28-2024 End: 45-23-7432ntrpefwtpre (Vibramycin) 100 MG capsule Indications: Acute non- recurrent maxillary sinusitis Take 1capsule (100 mg) by mouth in the morning and 1 capsule (100 mg) before bedtime. Do all this for 10 days. Take with at least 8 ounces (large glass) of water, do not lie down for 30 minutes after. 20 ca psule 08/28/2024 09/07/2024 ActiveEstradiol (20 sources)EstrogenESTRADIOL PO Take by mouth Buderer compound TRIEST Active ferrous sulfate (20 sources)Start: 48-41-0540hkct 1 tablet by mouth once dailyFerrous Sulfate 325 mg (65 mg iron) Tablet Active 130 MG PO Daily January 29, 2023 12:00am Start: 47-27-0721dyjp 1 tablet by mouth once dailyFerrous Sulfate 325 mg (65 mg iron) Tablet Active 130 MG PO Daily January 28, 2023 11:00pmStart: 01-29-2023 take 130 mg by mouth once dailyFerrous Sulfate Active 130 MG PO Daily January 29, 2023 12:00amStart: 15-54-2734curc 130 mg by mouth once dailyFerrous Sulfate Active 130 MG PO Daily January 29, 2023 12:00amtake 1 tablet by mouth every other dayferrous sulfate 325 (65 Fe) MG tablet Take 325 mg by mouth every other day Activetake 1 tablet by mouth three times weeklyIron 325 (65 Fe) MG 1 tablet Orally Three times a Week Activeflecainide acetate 50 mg oral tablet (20 sources)AntiarrhythmicStart: 09-30-2023 End: 72-27-1032nxby 1 tablet by mouth in the morningflecainide (Tambocor) 50 MG tablet Take 50 mg by mouth in the morning and 50 mg in the evening. 09/30/2023 Activefluticasone propionate 0.05 mg/actuat metered dose nasal spray (3 sources)CorticosteroidStart: 30-42-5563hzpayvsnwxc (FLONASE) 50 mcg/actuation nasal spray 12/15/2019 ActiveHandicap placards as directed (1 source)Start: 36-45-1937Ztmypwew placards as directed as directed as directed as directed for 365 days 1 year handicap placard: 05/09/2023- 05/09/2024 May, Activeisosorbide dinitrate 10 mg oral tablet (1 source)Nitrate VasodilatorStart: 02-24-2024 End: 59-70-9603jaab 1 tablet by mouth three times dailyisosorbide dinitrate (Isordil) 10 mg tablet Indications: Angina pectoris, unstable (Multi) Take 1 ta blet (10 mg) by mouth 3 times a day. 270 tablet 3 02/24/2024 02/23/2025 Active levothyroxine sodium 0.112 mg oral tablet (20 sources)l-ThyroxineStart: 70-08-0555wfkl 1 tablet by mouth every other day levothyroxine (Synthroid, Levoxyl) 112 MCG tablet Indications: Bradley's thyroiditis TAKE 1 TABLET BY MOUTH EVERY OTHER DAY ALTERNATING WITH 100MCG DOSE 15 tablet 3 12/11/2024 ActiveStart: 25-67-2365Oizyefdsnsukp 125 mcg tablet Active 112 MCG PO Daily August 31, 2024 12:00amStart: 41-94-1574uhdc 1 tablet by mouth every other daylevothyroxine (Synthroid, Levoxyl) 112 MCG tablet Indications: Bradley's thyroiditis (CMS/HCC) TAKE 1 TABLET BY MOUTH EVERY OTHER DAY ALTERNATING WITH 100 MCG DOSE 45 tablet 1 06/12/2024 ActiveStart: 44-93-6868uidu 1 tablet by mouth every other daylevothyroxine (Synthroid, Levoxyl) 100 MCG tablet Indications: Bradley's thyroiditis TAKE 1 TABLET BY MOUTH EVERY OTHER DAY ALTERNATING WITH 112MCG 15 tablet 3 12/11/2024 Active Start: 39-38-5445quks 1 tablet by mouth every other daylevothyroxine (Synthroid) 112 MCG tablet Indications: Bradley's thyroiditis (CMS/HCC) 1 po every other day alternating with 100mcg dose 90 tablet 12/18/2023 ActiveStart: 10-17-2022 take 1 tablet by mouth once dailyLevothyroxine 100 mcg tablet Active 100 MCG PO Daily October 17, 2022 12:00amStart: 84-45-6466nwiy 1 tablet by mouth once daily in the morningLevothyroxine Sodium 112 MCG 1 tablet in the morning on an empty stomach Orally Once a day for 90 days October, ActiveStart: 77-56-8087lpdp 1 tablet by mouth every twenty-four hoursLevothyroxine Sodium 88 MCG 1 tablet Orally Once a day for 90 days October, Activetake 1 capsule by mouth every other day at breakfastlevothyroxine (Tirosint) 112 mcg capsule Take 1 capsule (112 mcg) by mouth every other day. Take joseph empty stomach at the same time each day, either 30 to 60 minutes prior to breakfast Activetake 1 capsule by mouth once daily before breakfastlevothyroxine 112 mcg cap Take 112 mcg by mouth daily before breakfast. ActiveSynthroid 100 MCG TAKE ONE TABLET BY MOUTH EVERY MORNING ON AN EMPTY STOMACH Orally Once a day for 90 days Not-Takingtake 1 tablet by mouth once daily in the morningSynthroid 88 TAKE ONE TABLET BY MOUTH EVERY MORNING ON AN EMPTY STOMACH for 30 Not-Takinglisinopril 20 mg oral tablet (20 sources)Angiotensin Converting Enzyme InhibitorStart: 10-17-2022 End: 79-91-0951dxwd 1 tablet by mouth once dailylisinopril 20 MG tablet Indications: Essential hypertension TAKE 1 TABLET BY MOUTH DAILY 30 tablet 1 12/14/2024 ActiveMagnesium (13 sources)take 1 tablet by mouth once dailyMagnesium 400 MG 1 tablet Orally daily Activemagnesium citrate 100 mg oral tablet (20 sources)Start: 46-93-2369jpof 4 tablets by mouth once daily in the evening Magnesium Citrate 100 mg Tablet Active 400 MG PO Every evening October 17, 2022 12:00amStart: 06-01-5136kmni 400 mg by mouth once daily in the eveningMagnesium Citrate Active 400 MG PO Every evening October 17, 2022 12:00ammagnesium citrate solution Take by mouth 400mg ActiveMAGNESIUM CITRATE ORAL Take by mouth. Active MAGNESIUM CITRATE ORAL Take by mouth early in the morning.. Ksdcrv95 hr metoprolol succinate 25 mg extended release oral tablet (1 source)beta-Adrenergic BlockerStart: 08-26-2023 End: 35-48-8580qhge 1 tablet by mouth once dailymetoprolol succinate XL (Toprol XL) 25 mg 24 hr tablet Indications: History of PSVT (paroxysmal supraventricular tachycardia) , Palpitations , Primary hypertension Take 1 tablet (25 mg) by mouth oncedaily. Do not crush or chew. 30 tablet 11 08/26/2023 08/25/2024 Active MISC NATURAL PRODUCTS PO (20 sources)Start: 30-86-9879XKQT NATURAL PRODUCTS PO 2.5 mg Triest 01/29/2023 ActiveMultiple Vitamin (MULTI VITAMIN DAILY PO) (20 sources)Multiple Vitamin (MULTI VITAMIN DAILY PO) Multi Vitamin Active Multivitamin preparation (19 sources)Start: 83-80-9498tbre 1 tablet by mouth once dailyMultivitamin Active 1 TAB PO Daily October 16, 2022 11:00pmStart: 70-11-0800awof 1 tablet by mouth once dailyMultivitamin Active 1 TAB PO Daily October 17, 2022 12:00am multivitamin tablet (10 sources)take 1 tablet by mouth once dailymultivitamin tablet Take 1 tablet by mouth once daily. Activetake 1 tablet by mouth once dailymultivitamin tablet Take 1 tablet by mouth once daily. 0 ActiveMultivitamin Tablet (2 sources)Start: 59-63-2142rcvu 1 tablet by mouth once dailyMultivitamin Tablet Active 1 TAB PO Daily October 17, 2022 12:00amStart: 13-23-3796uzzt 1 tablet by mouth once dailyMultivitamin Tablet Active 1 TAB PO Daily October 16, 2022 11:00pm multivitamin with minerals (ONE-A-DAY MAXIMUM FORMULA) ORAL Tab (3 sources)Start: 31-36-0354xulk 1 tablet by mouth once dailymultivitamin with minerals (ONE-A-DAY MAXIMUM FORMULA) ORAL Tab Take one(1) tablet daily. 0 0 11/05/2006 ActiveMultivitamins (13 sources)take 1 tablet by mouth once dailyMultivitamins 1 tablet Orally daily Activenaloxone hydrochloride 40 mg/ml nasal spray (2 sources)Opioid AntagonistStart: 18-24-8356kucsqofe 4 mg/actuation nasal spray (NARCAN) Use 1 spray in one nostril as needed for overdose. Mayrepeat every 2 to 3 min in alternating nostrils until medical assistance is available 2 Each 10/04/2020 Activenitroglycerin 0.4 mg sublingual tablet (20 sources)Nitrate VasodilatorStart: 10-22-2022 End: 87-93-6552dlrwmoafrhstk (Nitrostat) 0.4 MG SL tablet Indications: Chest pain, unspecified type Place 1 tablet(0.4 mg) under the tongue every 5 (five) minutes if needed for chest pain 90 tablet 1 02/11/2024 ActiveNON FORMULARY (3 sources)Start: 30-81-8563HYG FORMULARY 2.5 mg Triest daily 01/29/2023 Active pantoprazole 20 mg delayed release oral tablet (5 sources)Proton Pump InhibitorStart: 52-70-4063nxbd 1 tablet by mouth every twenty-four hoursProtonix 20 MG 1 tablet Orally Once a day for 35 days MED TO BED UPON DISCHARGE DOS: 02/11/2023 Jan, ActiveSelenium (19 sources)Start: 65-95-9838kija 100 ug by mouth once dailySelenium Active 100 MCG PO Daily October 16, 2022 11:00pmStart: 63-06-1344ipnz 100 ug by mouth once dailySelenium Active 100 MCG PO Daily October 17, 2022 12:00amselenium (SELENOMAX ORAL) (10 sources)selenium (SELENOMAX ORAL) Take 100 mcg/day by mouth once daily. Activeselenium (SELENOMAX ORAL) Take 100 mcg/day by mouth once daily. 0 Active Selenium 100 MCG (13 sources)take 1 capsule by mouth once dailySelenium 100 MCG 1 capsule Orally Once a day Activetake 1 capsule by mouth once dailySelenium 100 MCG 1 capsule Orally Once a day Not-TakingSelenium 100 mcg tab (3 sources)Start: 24-89-4926yrbf 1 tablet by mouth once dailySelenium 100 mcg tab Take 1 tablet by mouth once daily. 0 05/16/2015 ActiveSelenium 100 mcg Tablet (2 sources)Start: 97-21-0142cnnl 1 tablet by mouth once dailySelenium 100 mcg Tablet Active 100 MCG PO Daily October 17, 2022 12:00amStart: 76-78-3012hbxs 1 tablet by mouth once dailySelenium 100 mcg Tablet Active 100 MCG PO Daily October 16, 2022 11:00pmselenium 200 MCG tablet (20 sources)selenium 200 MCG tablet 1 (one) time each day at the same time. Activesertraline 25 mg oral tablet (20 sources)Serotonin Reuptake InhibitorStart: 12-86-7561yern 1 tablet by mouth once dailysertraline (Zoloft) 25 MG tablet Indications: Major depressive disorder, single episode, mild TAKE 1 TABLET BY MOUTH DAILY 90 tablet 02/22/2025 ActiveStart: 56-61-9370lisi 1 tablet by mouth once dailysertraline (Zoloft) 25 mg tablet Take 1 tablet (25 mg) by mouth once daily. 07/24/2023 ActiveSertraline HCl ActiveTriest (16 sources)Start: 10-63-2778otfx 2.5 mg by mouth once daily in the evening Triest Active 2.5 MG PO Every evening January 28, 2023 11:00pmStart: 01-29-2023 take 2.5 mg by mouth once daily in the eveningTriest Active 2.5 MG PO Every evening January 29, 2023 12:00amVitamin D3 (13 sources)Vitamin D3 Active Completed/Discontinued Medications MedicationDrug Class(es)DatesSig (Normalized)Sig (Original)cefadroxil 500 mg oral capsule (7 sources)Cephalosporin AntibacterialStart: 27-12-4618hyiz 1 capsule by mouth every twelve hoursCefadroxil 500 MG 1 tablet Orally every 12 hrs for 7 days MED TO BED UPON DISCHARGE DOS: 02/11/2023 Jan, Not-Takingcelecoxib 100 mg oral capsule (9 sources)Nonsteroidal Anti-inflammatory DrugStart: 04-02-2024 End: 05-45-5115gqdi 1 capsule by mouth twice daily at mealtimeCelecoxib 100 mg capsule Discontinued 100 MG PO bid 60 April 02, 2024 12:00am August 31, 2024 10:12am Take with food.Start: 80-10-2385kfer 1 capsule by mouth every twelve hoursCelecoxib 200 MG 1 capsule with food Orally Twice a day for 30 days MED TO BED UPON DISCHARGE DOS: 02/11/2023 Jan, Activediclofenac sodium 0.01 mg/mg topical gel (4 sources)Nonsteroidal Anti-inflammatory DrugStart: 04-02-2024 End: 56-42-4441tvajb 2 g topically once as needed for painDiclofenac Sodium 1 % gel Discontinued 2 GM TOPICAL as directed as needed for knee pain 1 April 02, 2024 12:00am August 31, 2024 10:12am up to 4x's a dayStart: 04-02-2024 apply 2 g topically onceDiclofenac Sodium Active 2 GM TOPICAL as directed 1 April 02, 2024 12:00am up to 4x's a daydocusate sodium 50 mg / sennosides, intermediate 8.6 mg oral tablet (7 sources)Start: 96-12-3790jypd 2 tablets by mouth every twenty-four hours Senokot S 8.6-50 MG 2 tablets Orally Once a day for 30 days MED TO BED UPON DISCHARGE DOS: 02/11/2023 Jan, Not-Takingethinyl estradiol 0.0025 mg / norethindrone acetate 0.5 mg oral tablet (8 sources)Estrogen End: 66-80-9088mvuzqwtmxuwpz ac-eth estradioL (Femhrt Low Dose) 0.5-2.5 mg-mcg tablet Take 1 tablet by mouth once daily. 02/24/2024 Discontinued (Therapy completed)hydroCHLOROthiazide 25 mg oral tablet (1 source)Thiazide Diuretictake 1 tablet by mouth every twenty-four hours hydroCHLOROthiazide 25 MG 1 tablet Orally Once a day for 30 day(s) Not-Taking liothyronine (14 sources)l-Triiodothyroninetake 1 tablet by mouth once daily in the morning, then take 1 tablet by mouth once daily in the eveningCytomel TAKE ONE TABLET BY MOUTH EVERY MORNING AND TAKE ONE TABLET BY MOUTH EVERY EVENING Not-Takingtake 1 tablet by mouth once dailyCytomel 5 1 tablet on an empty stomach Orally Once a day Not-Takingmagnesium oxide 400 mg oral capsule (9 sources)Start: 08-26-2023 End: 96-40-6315atpk 1 capsule by mouth in the morningmagnesium oxide 400 MG capsule Take 400 mg by mouth in the morning and 400 mg in the evening. 202302/11/2024 Discontinued (Therapy completed)morphine sulfate 15 mg extended release oral tablet (7 sources)Opioid AgonistStart: 72-35-2530oxmo 1 tablet by mouth every twelve hours for painMorphine Sulfate ER 15 MG 1 tablet for breakthrough pain only Orally every 12 hrs for 5 days MED TOBED UPON DISCHARGE DOS: 02/11/2023 Jan, Not-Takingondansetron 8 mg oral tablet (7 sources)Serotonin-3 Receptor AntagonistStart: 04-30-6660nirs 1 tablet by mouth three times daily as needed for nauseaOndansetron HCl 8 MG 1 tablet as needed for nausea Orally Three times a day for 10 days MED TO BED UPON DISCHARGE DOS: 02/11/2023 Jan, Not-TakingoxyCODONE hydrochloride 5 mg oral tablet (7 sources)Opioid AgonistStart: 06-47-9123xggm 1 tablet by mouth every four hours as needed for painoxyCODONE HCl 5 MG 1 tablet as needed for pain Orally every 4 hrs for 10 days MED TO BED UPON DISCHARGE DOS: 02/11/2023 Jan, Not-Takingpolyethylene glycol 3350 71331 mg powder for oral solution (7 sources)Osmotic LaxativeStart: 94-54-6492ZxtqMsk 17 GM 1 packet mixed with 8 ounces of fluid Orally Once a day for 7 days MED TO BED UPON DISCHARGE DOS: 02/11/2023 Jan, Gaw-NpahfzPrshzhwdehr-Ntjvmpyo-Bromfenac 1-0.5-0.075 % solution (20 sources)Start: 04-13-2024 End: 49-28-3909Mfygetrxhgq-Moxiflox-Bromfenac 1-0.5-0.075 % solution Indications: Cortical age-related cataract ofboth eyes Administer 1 drop into affected eye(s) in the morning and 1 drop at noon and 1 drop in the evening and 1 drop before bedtime. 10 mL 1 04/13/2024 08/28/2024 Discontinued (Therapy completed)Start: 61-23-6565Uhvccqgundi-Moxiflox-Bromfenac 1-0.5-0.075 % solution Indications: Cortical age-related cataract ofboth eyes Administer 1 drop into affected eye(s) in the morning and 1 drop at noon and 1 drop in the evening and 1 drop before bedtime. 10 mL 1 04/13/2024 ActivepredniSONE 10 mg oral tablet (4 sources)Start: 02-40-4403ygwc 1 tablet by mouth twice dailyprednisone 10 mg 1 tablet Orally twice a day for 3 days MED TO BED UPON DISCHARGE DOS: 02/11/20232022 Not-TakingProgesterone (13 sources)ProgesteroneProgesterone 100 MG 1 suppository Vaginal Once a day for 30 day(s) Not-Takingregadenoson (Lexiscan) injection 0.4 mg (1 source)Start: 09-25-2023 End: .4 mg, intravenous, Once, On Sat09/25/23 at 1200, For 1 dose Sucralfate (Carafate) 100 mg/mL suspension (20 sources)Start: 10-17-2022 End: 66-87-9604bvnu 1 g by mouth twice dailySucralfate (Carafate) 100 mg/mL suspension Discontinued 1 GM PO Twice daily 280 October 16, 2022 11:00pm January 29, 2023 10:30amStart: 10-17-2022 End: 05-87-4920egjd 1 g by mouth twice dailySucralfate (Carafate) 100 mg/mL suspension Discontinued 1 GM PO Twice daily 280 October 17, 2022 12:00am January 29, 2023 11:30amStart: 11-18-1527bode 1 g by mouth twice dailySucralfate (Carafate) 100 mg/mL suspension Active 1 GM PO Twice daily 280 October 17, 2022 12:00amTc-99m tetrofosmin (Myoview) injection 30 millicurie (1 source)Start: 09-25-2023 End: millicurie, intravenous, Once in imaging, Starting on Sat09/25/23 at 1114, For 1 dose, Administer 45 to 90 minutes prior to imaging unless otherwise indicated.Tc-99m tetrofosmin (Myoview) injection 34.1 millicurie (1 source)Start: 09-26-2023 End: .1 millicurie, intravenous, Once in imaging, Starting on Kyung 09/26/23 at 1144, For 1 dose, Administer 45 to 90 minutes prior to imaging unless otherwise indicated.traMADol hydrochloride 50 mg oral tablet (7 sources)Opioid AgonistStart: 38-43-1725lxmt 1 tablet by mouth every six hours as needed for paintraMADol HCl 50 MG 1 tablet as needed for pain Orally every 6 hrs for 10 days MED TO BED UPON DISCHARGE DOS: 02/11/2023 Jan, Not-Takingvitamin D3-vitamin K2 1,250-200 mcg capsule (8 sources) End: 89-93-0705pgbcydh D3-vitamin K2 1,250-200 mcg capsule Vitamin D3 02/24/2024 Discontinued (Therapy completed)vitamin D3-vitamin K2 1,250-200 mcg capsule Vitamin D3 Activevitamin D3-vitamin K2 1,250-200 mcg capsule Vitamin D3 0 Active Problems Active Problems Problem ClassificationProblemDateDocumented DateEpisodic/ChronicAcquired foot deformities (6 sources)Other hammer toe(s) (acquired), left foot; Translations: [Hallux valgus (acquired), left foot]Onset: 14-36-4053VocrkuuJnmlbskg foot deformities (10 sources)Bunionette of left foot; Translations: [Tailor's bunion of left foot]Onset: 020388-34-0985XakbbcpzTvtajqa disorders (20 sources)Anxiety; Translations: [Anxiety disorder, unspecified]Onset: 578673-87-2829NxrdcsnSitokeh dysrhythmias (20 sources)Supraventricular tachycardia; Translations: [Supraventricular tachycardia]Onset: 468881-07-8171HltexnxGwaysqsf (3 sources)Bilateral cortical age-related cataract eyes; Translations: [Cortical age-related cataract, bilateral]00-61-3655XubgfurZfaszagqry disorders (20 sources)Right bundle branch block; Translations: [Unspecified right bundle- branch block]Onset: 434433-11-1867EagnqcgAqzbvevl atherosclerosis and other heart disease (20 sources)Angina pectoris; Translations: [Angina pectoris, unspecified]Onset: 179415-62-7548UxkvhxdNdxattotr of lipid metabolism (20 sources)Mixed hyperlipidemia; Translations: [Mixed hyperlipidemia]Onset: 944491-39-9961FlkxdecHrjqbjlalg disorders (20 sources)Gastroesophageal reflux disease; Translations: [Gastro-esophageal reflux disease without esophagitis]Onset: 507473-99-5535BfsdrymOeyfzbpod hypertension (20 sources)Essential (primary) hypertension; Translations: [Hypertensive disorder]Onset: 283861-95-5060ViorqohYbugiip and fatigue (20 sources)Fatigue; Translations: [Chronic fatigue, unspecified]Onset: 757219-57-0887YkujdprHuydckajim disorders (1 source)Hormone replacement therapy; Translations: [HORMONE REPLACEMENT THERAPY]Onset: 54-87-9483CnwmefawJtsy disorders (20 sources)Mild major depression, single episode; Translations: [Major depressive disorder, single episode, mild]Onset: 10-22-2022 Resolved: 993717-71-5248VcrxjgnOmvqshjlmhh deficiencies (13 sources)Vitamin D deficiency; Translations: [Vitamin D deficiency, unspecified]ChronicOsteoporosis (14 sources)Primary osteoporosis; Translations: [Age-related osteoporosis without current pathological fracture]ChronicOther aftercare (9 sources)Patient encounter status; Translations: [Aftercare following joint replacement surgery]38-84-6732XhbfllzBybgg aftercare (11 sources)Aftercare following joint replacement surgery; Translations: [Aftercare following joint replacement]Onset: 62-69-3582SbxtyleYarbw aftercare (5 sources)Surgical follow-up; Translations: [Encounter for surgical aftercare following surgery on the sense organs]95-31-4574JxjbavpnEbfeq connective tissue disease (1 source)Presence of artificial knee joint, bilateral; Translations: [PRESENCE ARTIFICIAL KNEE JNT BILAT]Onset: 76-53-2771YvugyzxPfjvj connective tissue disease (3 sources)Hip joint prosthesis present; Translations: [Presence of right artificial hip joint]ChronicOther connective tissue disease (3 sources)History of total hip arthroplasty; Translations: [Presence of right artificial hip joint]ChronicOther connective tissue disease (7 sources)Presence of right artificial hip joint; Translations: [Presence of right artificial hip joint]Onset: 13-61-1687GhdahwtVwmss connective tissue disease (6 sources)History of repair of hip joint; Translations: [Presence of unspecified artificial hip joint]05-04-4774YqzvmmyQhobn connective tissue disease (7 sources)Presence of unspecified artificial hip joint; Translations: [Hip joint replacement]73-57-6898WgfogymLsxia connective tissue disease (4 sources)History of total replacement of right hip joint; Translations: [Presence of right artificial hip joint]31-33-8395WqumtlrVsmsa connective tissue disease (5 sources)Pain in left foot; Translations: [PAIN IN LEFT FOOT]Onset: 08-07-2022 EpisodicOther connective tissue disease (8 sources)Trochanteric bursitis; Translations: [Trochanteric bursitis, right hip]86-02-4894HbyzthpzEkjok connective tissue disease (8 sources)Iliotibial band friction syndrome of right knee; Translations: [Iliotibial band syndrome, right leg]76-97-2347XvfbuecsJgqzl connective tissue disease (3 sources)Trochanteric bursitis, right hip; Translations: [Enthesopathy of hip region]81-44-9401XfjwxtxsKegyd connective tissue disease (3 sources)Iliotibial band syndrome, right leg; Translations: [Other disorders of muscle, ligament, and fascia]53-28-4322KghhretpDuyqb non-traumatic joint disorders (3 sources)Pain in right hipEpisodicOther nutritional; endocrine; and metabolic disorders (13 sources)Obesity; Translations: [Obesity, unspecified]ChronicOther nutritional; endocrine; and metabolic disorders (13 sources)Obese class I; Translations: [Body mass index (BMI) 34.0-34.9, adult]ChronicOther nutritional; endocrine; and metabolic disorders (14 sources)Obese class II; Translations: [Body mass index (BMI) 35.0-35.9, adult]Onset: 931076-93-1881DkkvhcrLhqmz nutritional; endocrine; and metabolic disorders (2 sources)Body mass index (BMI) 35.0-35.9, adult; Translations: [Body Mass Index 35.0-35.9, adult]Onset: 04-20-2021 Resolved: 02-96-7178ClsdqnlOxduo nutritional; endocrine; and metabolic disorders (20 sources)Severe obesity; Translations: [Morbid (severe) obesity due to excess calories]Onset: 374388-68-4311HwclppzHdiit nutritional; endocrine; and metabolic disorders (2 sources)Body mass index (BMI) 36.0-36.9, adult; Translations: [Body mass index (BMI) 36.0-36.9, adult]Onset: 90-02-8810VffuacmJbqxu nutritional; endocrine; and metabolic disorders (2 sources)Body mass index (BMI) 34.0-34.9, adult; Translations: [Body mass index (BMI) 34.0-34.9, adult]Onset: 78-32-9586TouidoiEcmev nutritional; endocrine; and metabolic disorders (3 sources)Body mass index (BMI) 37.0-37.9, adult; Translations: [Body Mass Index 37.0-37.9, adult]Onset: 65-99-1317JkndunkSonfy upper respiratory disease (20 sources)Pain in throat; Translations: [Pain in throat]Onset: 12-16-2023 91-41-9644FjldnswmZbnim upper respiratory infections (2 sources)Acute maxillary sinusitis; Translations: [Acute maxillary sinusitis, unspecified]96-80-3820LzpmazptMvlkntno codes; unclassified (20 sources)Obstructive sleep apnea syndrome; Translations: [Obstructive sleep apnea (adult) (pediatric)]Onset: 742555-11-7325YdgmagwIxsonwcw codes; unclassified (4 sources)Obstructive sleep apnea (adult) (pediatric); Translations: [OBSTRUCTIVE SLEEP APNEA]Onset: 04-20-2021 Resolved: 86-02-1504RkgxtylZuouxecc codes; unclassified (20 sources)Sleep apnea; Translations: [Sleep apnea, unspecified]Onset: 174265-20-9599PlhgdckTaljokwq codes; unclassified (4 sources)Sleep apnea, unspecified; Translations: [Obstructive sleep apnea (adult)(pediatric)]Onset: 157270-21-4435JaiofptKeaccsyw codes; unclassified (20 sources)Hypersomnia; Translations: [Hypersomnia, unspecified]Onset: 539305-05-9265HainiwjFvwbfhph codes; unclassified (1 source)Hypersomnia, unspecified; Translations: [Hypersomnia, unspecified] 73-01-0918YnplfgaXtnnhuam codes; unclassified (1 source)Acquired absence of both cervix and uterus; Translations: [ACQUIRED ABSENCE BOTH CERVIX AND UTERUS]Onset: 66-17-3292AqeqdqhlOjlvvjed codes; unclassified (1 source)Acquired absence of other specified parts of digestive tract; Translations: [ACQ ABSENCE OTH PART DIGESTV TRACT]Onset: 87-23-2289Eezvfabu Residual codes; unclassified (2 sources)Pain; Translations: [Pain, unspecified]05-63-7834KcyogjvuXvabmjws codes; unclassified (1 source)Preoperative -41-3956EwdfxvfuPucxcluhgcd; intervertebral disc disorders; other back problems (4 sources)Lumbar radiculopathy; Translations: [Radiculopathy, lumbar region] 35-48-1575JzcfcrqiPjdcjgu disorders (20 sources)Bradley thyroiditis; Translations: [Autoimmune thyroiditis]Onset: 10-02-2018 Resolved: hronic Past or Other Problems Problem ClassificationProblemDateDocumented DateEpisodic/ChronicCardiac dysrhythmias (20 sources)Palpitations; Translations: [Palpitations]Onset: 08-26-2023 Resolved: 027058-99-1382JnzgttzcRbnxmcjh mellitus without complication (20 sources)Impaired fasting glycemia; Translations: [Impaired fasting glucose] Onset: 060643-61-9975LdfeehkiPthzmoigf of teeth and jaw (20 sources)Jaw pain; Translations: [Jaw pain]Onset: 10-23-2022 Resolved: 718674-90-4626LhlzodriEfswlsjyezhcn and screening for infectious disease (1 source)Encounter for immunization; Translations: [Encounter for immunization Z23]Onset: 03-07-2021 Resolved: 79-53-6083NdjmfdruJzmlywslzoi chest pain (3 sources)Chest pain; Translations: [Chest pain, unspecified]Onset: 02-05-2024 53-23-5612BbubwgstLvnvyrzoepkxnw (20 sources)Osteoarthritis of right hip joint; Translations: [Unilateral primary osteoarthritis, right hip]Onset: 07-27-2009 Resolved: 86-46-3369IjuwjleBefpt aftercare (6 sources)Other buttermaker helper (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; Translations: [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 BRINE 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 THERAPY]Onset: 93-00-6764CubjqbmmNjoqr aftercare (20 sources)Taking high risk medication; Translations: [Other buttermaker helper (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]Onset: 954640-43-6963KxhoshcaNwbys aftercare (20 sources)Treatment changed; Translations: [Other half-way (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]Onset: 09-30-2023 Resolved: 002485-72-3136JedcztfzKawes circulatory disease (20 sources)History of paroxysmal supraventricular tachycardia; Translations: [Personal history of other diseases of the circulatory system]Onset: 08-26-2023 Resolved: 232496-23-5747LjyxzwviWqcch circulatory disease (4 sources)Personal history of other diseases of the circulatory system; Translations: [Personal history of other diseases of the circulatory system] Onset: 48-33-7517MydhzgveIgzjc connective tissue disease (20 sources)History of total knee arthroplasty; Translations: [Presence of right artificial knee joint]Onset: 01-20-2019 Resolved: 503484-73-6811EuzppcnJehmk connective tissue disease (20 sources)Artificial knee joint present; Translations: [Presence of unspecified artificial knee joint]Onset: 10-26-2020 Resolved: 400166-74-2097TouadyiFlztt connective tissue disease (20 sources)Inflammation of rotator cuff tendon; Translations: [Other shoulder lesions, unspecified shoulder]Onset: 05-10-2015 Resolved: 743004-76-8884HssmdbpbDnrfg connective tissue disease (20 sources)Impingement syndrome of right shoulder region; Translations: [Impingement syndrome of right shoulder]Onset: 05-10-2015 Resolved: 849749-76-0298GpthlxegNmojg connective tissue disease (20 sources)Tenosynovitis of right radial styloid; Translations: [Radial styloid tenosynovitis [de Quervain]]Onset: 01-20-2016 Resolved: 185644-18-1337NutfdyoyJwben connective tissue disease (3 sources)Impingement syndrome of shoulder region; Translations: [Impingement syndrome of unspecified shoulder]Onset: 05-18-2015 Resolved: 412068-34-3739XyunvrkbBkfcn connective tissue disease (3 sources)Pain in right hand; Translations: [Pain in right hand]Onset: 09-27-2015 Resolved: 688676-41-6557VuskwvfiKguxg connective tissue disease (20 sources)Dupuytren's contracture; Translations: [Palmar fascial fibromatosis [Dupuytren]]Onset: 02-15-2020 Resolved: 736876-98-3270NbxtnztfQlvgi lower respiratory disease (5 sources)Dyspnea; Translations: [Shortness of breath]Onset: 02-24-2024 81-20-3827PbrejwbxCtwbv lower respiratory disease (1 source)Shortness of breath; Translations: [Shortness of breath]Onset: 22-91-4405EqpvyjlxCucxt non-traumatic joint disorders (20 sources)Loose body in left elbow joint; Translations: [Loose body in left elbow]Onset: 01-01-2020 Resolved: 644627-46-8256LbuemwcOwbuy non-traumatic joint disorders (3 sources)Hip pain; Translations: [Pain in unspecified hip]Onset: 07-27-2009 Resolved: 756290-32-5352XsbtcwtfCemta nutritional; endocrine; and metabolic disorders (20 sources)Body mass index 30+ - obesity; Translations: [Body mass index (BMI) 32.0-32.9, adult]Onset: 09-30-2023 Resolved: 836604-78-5311JdtteqjWpodu screening for suspected conditions (not mental disorders or infectious disease) (20 sources)Electrocardiogram abnormal; Translations: [Abnormal electrocardiogram [ECG] [EKG]]Onset: 05-29-2016 Resolved: 129044-69-4406CvhxwvizIjuptzvc codes; unclassified (20 sources)Never smoked tobacco; Translations: [Other specified health status] Onset: 09-30-2023 Resolved: 437376-82-2120IczicyjlOvmkbjbz codes; unclassified (20 sources)History of abdominal hysterectomy; Translations: [Acquired absence of both cervix and uterus]Onset: 355739-28-3663FrpqaufhTcowgbpi codes; unclassified (20 sources)Acquired absence of cervix and uterus; Translations: [Acquired absence of both cervix and uterus]Onset: 666432-52-2194EhmeogciPksgelon codes; unclassified (20 sources)Ovary absent; Translations: [Acquired absence of ovaries, unilateral]Onset: 899126-00-5277SuzzzjntZyuqhvdw codes; unclassified (20 sources)Acquired absence of ovary; Translations: [Acquired absence of ovaries, unilateral]Onset: 816148-07-4280QkjqwbwkNzsxctui codes; unclassified (2 sources)Other specified health status; Translations: [Other specified health status]Onset: 31-10-0679BccevzkfFfidhbqlrnp; intervertebral disc disorders; other back problems (20 sources)Arthritis of spine; Translations: [Spondylosis without myelopathy or radiculopathy, lumbosacral region]Onset: 10-22-2022 Resolved: 968835-54-0757FzggskeKglruex and strains (20 sources)Unspecified sprain of right shoulder joint, initial encounter; Translations: [Sprains and strains of unspecified site of shoulder and upper arm]Onset: 10-09-2016 Resolved: 415431-47-8769NbrbyclnNorsayp (20 sources)Near syncope; Translations: [Syncope and collapse]Onset: 08-26-2023 Resolved: 138901-92-2354CclplsndVaxlbmscbroo (10 sources)Onset: 08-26-2023 Resolved: Results Test NameValueInterpretationReference RangeFacilityECG 12 [place] 12-18-2024 Normal sinus rhythm 70 bpm normal intervals, paired to the EKG from 07/06/2024, right bundle branch block is no longer present.[facility] Work Phone: ECG 12 [place] 57-15-0946Beoloc sinus rhythm 79 bpm right bundle branch block compared to the EKG from 02/24/2024, right bundle branch block is new, and MT interval has increased from 170 ms to 188 ms. QTc is 456 ms.[facility] Work Phone: basic Metabolic Panelon 55-69-8641Mepld gap [Moles/Vol]8.8 mmol/LNormal6.0-15.0The [facility] Physician GroupComment on above:Order Comment: FASTING.JKWPerformed By: #### BMP #### [facility] [address] [place] [address] USACalcium [Mass/Vol]9.3 mg/dLNormal8.6-10.3The [facility] Physician GroupComment on above:Order Comment: FASTING.JKWResult Comment: PERFORMED BY: [facility] [address] [place] [address] PATHOLOGIST ANIMATION PRODUCER ROSELIA RAMIREZ M.D.Performed By: #### BMP #### [facility] [address] [place] [address] USAChloride [Moles/Vol]101 mmol/KFtngkn76-903Bjd [facility] Physician GroupComment on above:Order Comment: FASTING.JKWPerformed By: #### BMP #### [facility] [address] [place] [address] USACO2 [Moles/Vol]32.5 mmol/LHigh21.0-31.0The [facility] Physician GroupComment on above:Order Comment: FASTING.JKWPerformed By: #### BMP #### [facility] [address] [place] [address] USACreatinine [Mass/Vol]0.81 mg/dLNormal0.60-1.20The [facility] Physician GroupComment on above:Order Comment: FASTING.JKWPerformed By: #### BMP #### [facility] [address] [place] [address] USAGFR/1.73 sq M.predicted MDRD (S/P/Bld) [Vol rate/Area] mL/min/{1.73_m2}NormalThe [facility] Physician GroupComment on above:Order Comment: FASTING.JKWPerformed By: #### BMP #### [facility] [address] [place] [address] USAGlucose [Mass/Vol]91 mg/hFRxpmpy86-111Cxu [facility] Physician GroupComment on above:Order Comment: FASTING.JKWResult Comment: Random Glucose Reference Range is dependent on time and content of last meal. Glucose of more than 200 mg/dL in a nonstressed, ambulatory subject supports the diagnosis of Diabetes Mellitus. ADA recommended reference rangePerformed By: #### BMP #### [facility] [address] [place] [address] USAPotassium [Moles/Vol]4.3 mmol/LNormal3.5-5.1The [facility] Physician GroupComment on above:Order Comment: FASTING.JKWPerformed By: #### BMP #### [facility] [address] [place] [id number] USASodium [Moles/Vol]138 mmol/SAfgngo222-099Tqs [facility] Physician GroupComment on above:Order Comment: FASTING.JKWPerformed By: #### BMP #### [facility] [address] [place] [address] USAUrea nitrogen [Mass/Vol]20 mg/dLNormal7-e [facility] Physician GroupComment on above:Order Comment: FASTING.JKWPerformed By: #### BMP #### [facility] [address] [place] [id number] USACalcium [Mass/volume] in Serum or PlasmaOrdered By: Mary Alice Tatum on 67-46-8786Yxdzqna [Mass/Vol]Calcium [Mass/volume] in Serum or Plasma 8.6-10.3FLicking Memorial HospitalCarbon dioxide, total [Moles/volume] in Serum or PlasmaOrdered By: Mary Alice Tatum on 11-27-3145AB5 [Moles/Vol]Carbon dioxide, total [Moles/volume] in Serum or MvtldaBhdo14.0-31.0[facility] HospitalChloride [Moles/volume] in Serum or PlasmaOrdered By: Mary Alice Tatum on 39-80-1304Ietnbefa [Moles/Vol]Chloride [Moles/volume] in Serum or Plasma 98-107[facility] HospitalCreatinine [Mass/volume] in Serum or PlasmaOrdered By: Mary Alice Tatum on 96-40-8378Kotbvngpvx [Mass/Vol]Creatinine [Mass/volume] in Serum or Plasma0.60-1.20[facility] Glucose [Mass/volume] in Serum or PlasmaOrdered By: Mary Alice Tatum on 06-05-2024 Glucose [Mass/Vol]Glucose [Mass/volume] in Serum or Vbeiqt55-921DvbpbdrjbLima City HospitalComment on above:ADA recommended reference rangeRandom Glucose Reference Range is dependent on time and content of last meal. Glucose of more than 200 mg/dL in a nonstressed, ambulatory subject supports the diagnosisof Diabetes Mellitus.No Panel InformationOrdered By: Mary Alice Tatum on 85-26-5633Drosuffnc GFR (CKD-EPI)> 60.0 mL/MinLima City Hospital [facility] Creatinine Clearance (ChemN/[facility] HospitalPotassium [Moles/volume] in Serum or PlasmaOrdered By: Mary Alice Tatum on 06-05-2024 Potassium [Moles/Vol]Potassium [Moles/volume] in Serum or Plasma3.5-5.1FEast Ohio Regional Hospitalerum or plasma anion gap determinationOrdered By: Mary Alice Tatum on 50-87-6639Jijxh gap [Moles/Vol]Serum or plasma anion gap determination6.0-15.0[facility] Hospitalodium [Moles/volume] in Serum or PlasmaOrdered By: Mary Alice Tatum on 17-35-7297Mmyuvu [Moles/Vol]Sodium [Moles/volume] in Serum or Netecn059-321JufkmjhjgLima City HospitalUrea nitrogen [Mass/volume] in Serum or PlasmaOrdered By: Mary Alice Tatum on 06-05-2024 Urea nitrogen [Mass/Vol]Urea nitrogen [Mass/volume] in Serum or Plasma7-25 [facility] HospitalMM screening mammo BI w/CADon 90-33-3342QP screening [facility] BI [facility] [place] [address] Mammography Report Signed Patient: Julia Villeda MR#: [id number] : 1950 Acct:[id number] Age/Sex: 74 / F ADM Date: 05/21/24 Loc: [place] Room: Type: [facility] Attending Dr: Frank Guzman DO Copies to: [...] mammogram. Impression dictated by: Cj Mercado Jr., D.O.05/21/2024 10:07 AM Dictation Location: S01 Transcribed By: ARACELY 05/21/24 1007 Dictated By: Cj Mercado Jr, DO 05/21/24 1007 Signed By: 05/21/24 1007[facility] Physician GroupUS Eye+Orbit - bilateralon 04-13-2024 LENGTH (OD)22.56[facility] HealthcareA LENGTH (OS)22.86[facility] Right Eye Axial length was 22.56. Left Eye Axial length was 22.86.[facility] Study observation (narrative)[facility] HealthcareXR hip RT min 2V(w/wo pelvis)*on 84-80-1452NH hip RT min 2V(w/wo pelvis)*[facility] [address] [place] [place] [address] XRay Report Signed Patient: Julia Villeda MR#: [id number] 3268 : 1950 Acct:[id number] Age/Sex: 74 / F ADM Date: 04/02/24 Loc: [facility] [place] Room: Type: [facility] Attending Dr: Herman Chang II, MD Copies [...] Guille Vasquez M.D.04/02/2024 3:49 PM Dictation Location: [place] [address] Transcribed By: ARACELY 04/02/24 1549 Dictated By: Guille Vasquez DO 04/02/24 1548 Signed By: 04/02/24 1549[facility] Physician GroupECG [address] 83-66-1033Xdqjxd sinus rhythm at 62 bpm MT interval 170 ms QRS duration 100 ms QTc 422 [facility] Work Phone: XR hip RT min 2V(w/wo pelvis)*on 59-67-1711YQ hip RT min 2V(w/wo pelvis)*[facility] [address] [place] [address] XRay Report Signed Patient: Julia Villeda MR#: [id number] : 1950 Acct:[id number] Age/Sex: 73 / F ADM Date: 02/24/24 Loc: [facility] [place] Room: Type: [facility] Attending Dr: Herman Chang II, MD Copies [...] COMPLICATION.. Impression dictated by: Cj Mercado Jr., D.O.02/24/2024 2:32 PM Dictation Location: RADIO-PC-12 Transcribed By: [facility] 02/24/24 143 Dictated By: Cj Mercado Jr, DO 02/24/24 1431 Signed By: 02/24/24 143[facility] Physician GroupActivated partial thromboplastin time (aPTT) in platelet poor plasma by coagulation aOrdered By: Mikey Gallegos on 07-82-6995gDVC Coag (PPP) [Time]39.4 sHigh25.1-36.5FLicking Memorial HospitalComment on above:A hematocrit value greater than 55% may lead to inaccurate results in coagulation testing. Patientshaving hematocrit values >55% require a special collection tube for coagulation studies. Please contact the laboratory at [phone] for redraw instructions.Automated basophil %Ordered By: Mikey Gallegos on 91-07-0751Qglghvrdu/100 WBC (Bld)0.6 %Normal.[facility] HospitalComment on above:Performed By: #### CBC, CK, HS TROP, BNP, BMP, PTT, PT #### [facility] [address] [place] [address] USAAutomated basophil countOrdered By: Mikey Gallegos on 91-38-1636Vkviwvhka (Bld) [#/Vol]0.0 10*3/uLNormal0.0-0.2FLicking Memorial HospitalComment on above:Result Comment: PERFORMED BY: [place] [address] PATHOLOGIST ANIMATION PRODUCER JAKE SAN M.D.Performed By: #### CBC, CK, HS TROP, BNP, BMP, PTT, PT #### [facility] [address] [place] [address] USAAutomated blood monocyte countOrdered By: Mikey Gallegos on 06-53-7969Nuwqzjequ (Bld) [#/Vol]0.6 10*3/uLNormal0.0-0.8[facility] HospitalComment on above:Performed By: #### CBC, CK, HS TROP, BNP, BMP, PTT, PT #### [facility] [address] [place], [place] [id number] USAAutomated eosinophil %Ordered By: Mikey Gallegos on 31-87-2423Zhmrnsfsxve/100 WBC (Bld)1.4 %Normal.[facility] Comment on above:Performed By: #### CBC, CK, HS TROP, BNP, BMP, PTT, PT #### [facility] [address] [place], [place] [id number] USAAutomated eosinophil countOrdered By: Mikey Gallegos on 18-60-8186Pensfhrohmm (Bld) [#/Vol]0.1 10*3/uLNormal0.0-0.45[facility] HospitalComment on above:Performed By: #### CBC, CK, HS TROP, BNP, BMP, PTT, PT #### [facility] [address] [place] [address] USAAutomated monocyte %Ordered By: Mikey Gallegos on 97-23-5687Aockegmre/100 WBC (Bld)7.7 %Normal.[facility] Comment on above:Performed By: #### CBC, CK, HS TROP, BNP, BMP, PTT, PT #### [place] [address] USAAutomated neutrophil %Ordered By: Mikey Gallegos on 73-75-2604Gykohkjzbcv/100 WBC (Bld)65.7 %Normal.[facility] City HospitalComment on above:Performed By: #### CBC, CK, HS TROP, BNP, BMP, PTT, PT #### [place] [address] USABNP ser/plasOrdered By: Mikey Gallegos on 02-05-2024 Natriuretic peptide B (Bld) [Mass/Vol]36.0 pg/mLNormal5-100L[facility] City HospitalComment on above:Result Comment: PERFORMED BY: [place] [address] PATHOLOGIST ANIMATION PRODUCER JAKE SAN M.D.Performed By: #### CBC, CK, HS TROP, BNP, BMP, PTT, PT #### [place] [address] USABasic Metabolic Panelon 09-21-0747Hdkkrcwoqz Clr Calc Bwjdiwwc39.28[facility] Physician GroupComment on above:Result Comment: PERFORMED BY: [place] [address] PATHOLOGIST ANIMATION PRODUCER JAKE SAN M.D.Performed By: #### CBC, CK, HS TROP, BNP, BMP, PTT, PT #### [place] [address] USAGFR/1.73 sq M.predicted MDRD (S/P/Bld) [Vol rate/Area] mL/min/{1.73_m2}NormalThe [facility] Physician GroupComment on above:Performed By: #### CBC, CK, HS TROP, BNP, BMP, PTT, PT #### [facility] [address] [place] [address] USACalcium [Mass/volume] in Serum or PlasmaOrdered By: Mikey Gallegos on 10-21-8396Fbodyqp [Mass/Vol]9.9 mg/dLNormal8.6-10.3FLicking Memorial HospitalComment on above:Performed By: #### CBC, CK, HS TROP, BNP, BMP, PTT, PT #### [place] [id number] USACarbon dioxide, total [Moles/volume] in Serum or Plasma Ordered By: Mikey Gallegos on 15-95-1130EC5 [Moles/Vol]29.3 mmol/LNormal 21.0-31.0[facility] HospitalComment on above:Performed By: #### CBC, CK, HS TROP, BNP, BMP, PTT, PT #### [place] [id number] USAChloride [Moles/volume] in Serum or PlasmaOrdered By: Mikey Gallegos on 34-11-2728Djesrfds [Moles/Vol]100 mmol/KYugnww69-281LabqmjtgeLima City HospitalComment on above:Performed By: #### CBC, CK, HS TROP, BNP, BMP, PTT, PT #### [facility] [address] [place] [id number] USAComplete Blood Count Auto Diffon 86-45-2115Ogdl Corpuscular HGB Conc33.3 g/sTCqjour71.0-35.0[facility] Physician GroupComment on above:Performed By: #### CBC, CK, HS TROP, BNP, BMP, PTT, PT #### [place] [id number] USAMonocytes/100 WBC (Bld)19.82 %Normal0.00-20.00[facility] Physician GroupComment on above:Performed By: #### CBC, CK, HS TROP, BNP, BMP, PTT, PT #### [facility] [address] [place] [address] USANRBC%0.2 /100{WBC}Normal0-0.5[facility] Physician Group Comment on above:Performed By: #### CBC, CK, HS TROP, BNP, BMP, PTT, PT #### [facility] [address] [place] [address] USACreatine kinase [Enzymatic activity/volume] in Serum or PlasmaOrdered By: Mikey Gallegos on 22-94-6294SE [Catalytic activity/Vol]50 U/L Wfgxkp84-188SswzltrhmLima City HospitalComment on above:Performed By: #### CBC, CK, HS TROP, BNP, BMP, PTT, PT #### [facility] [address] [place] [address] USACreatinine [Mass/volume] in Serum or PlasmaOrdered By: Mikey Gallegos on 89-03-7389Zsfpefkjbo [Mass/Vol]0.77 mg/dLNormal0.60-1.20 [facility] HospitalComment on above:Performed By: #### CBC, CK, HS TROP, BNP, BMP, PTT, PT #### [facility] [address] [place] [address] USAECG 12 lead ECGon 97-59-4512ZPB 12 lead [facility]GLICKING [facility] [place] [address] [place] [address] Electrocardiograph Report Signed Patient: Julia Villeda MR#: [id number] 3268 : 1950 Acct:[id number] Age/Sex: 73 / F ADM Date: 02/05/24 Loc: ER Room: Type: [facility] ER Attending Dr: Ordering Provider: Mikey [...] MUS Signed By Mikey Gallegos MD 10/[address] [place] [address] Physician GroupErythrocyte distribution width [Ratio] by Automated countOrdered By: Mikey Gallegos on 85-29-6187Obhketyecwl distribution width (RBC) [Ratio]14.5 %Goashn34.9-15.3FLicking Memorial HospitalComment on above:Performed By: #### CBC, CK, HS TROP, BNP, BMP, PTT, PT #### [facility] [address] [place] [address] USAErythrocytes [#/volume] in Blood by Automated countOrdered By: Mikey Gallegos on 86-01-3804VSX (Bld) [#/Vol]4.51 10*6/uLNormal3.60-5.00 [facility] HospitalComment on above:Performed By: #### CBC, CK, HS TROP, BNP, BMP, PTT, PT #### [facility] [address] [place] [address] USAGlucose [Mass/volume] in Serum or PlasmaOrdered By: Mikey Gallegos on 25-50-9330Tbmihci [Mass/Vol]95 mg/xGGoqcnf01-156JlogqpaccLima City HospitalComment on above:ADA recommended reference rangeRandom Glucose Reference Range is dependent on time and content of last meal. Glucose of more than 200 mg/dL in a nonstressed, ambulatory subject supports the diagnosisof Diabetes Mellitus.Result Comment: Random Glucose Reference Range is dependent on time and content of last meal. Glucose of more than 200 mg/dL in a nonstressed, ambulatory subject supports the diagnosis of Diabetes Mellitus. ADA recommended reference rangePerformed By: #### CBC, CK, HS TROP, BNP, BMP, PTT, PT #### [facility] [address] [place] [address] USAHematocrit [Volume Fraction] of Blood by Automated count Ordered By: Mikey Gallegos on 10-43-1903Nruaqpgcfr (Bld) [Volume fraction]38.6 % Csptvb17.0-46.4FLicking Memorial HospitalComment on above:Performed By: #### CBC, CK, HS TROP, BNP, BMP, PTT, PT #### [facility] [address] [place] [address] USAHemoglobin [Mass/volume] in BloodOrdered By: Mikey Gallegos on 57-21-5612Kmaxqqvwzw (Bld) [Mass/Vol]12.8 g/sJMoremr35.8-15.4FLicking Memorial HospitalComment on above:Performed By: #### CBC, CK, HS TROP, BNP, BMP, PTT, PT #### [facility] [address] [place] [address] USAINR in Platelet poor plasma by Coagulation assayOrdered By: Mikey Gallegos on 48-63-9728YPN Coag (PPP) [Relative time]1.0 {INR}Normal [facility] City HospitalComment on above:INR Therapeutic Range A) Pre- and Peroperative OAT started two weeks before surgery. NOT HIP SURGERY: 1.5 - 2.5 HIP SURGERY: 2 - 3B) Primary and secondary prevention of venous THROMBOSIS: 2 - 3C) Active venous thrombosis, pulmonary embolismand prevention of recurrent venous thrombosis: 2 - 3D) Prevention of arterial thromboembolismincluding patients with mechanical heart valves: 3 - 4.5Result Comment: INR Therapeutic Range A) Pre- and [...] patients with mechanical heart valves: 3 - 4.5Performed By: #### CBC, CK, HS TROP, BNP, BMP, PTT, PT ####[facility] [address] [place] [id number] USALeukocytes [#/volume] corrected for nucleated erythrocytes in Blood by Automated counOrdered By: Mikey Gallegos on 02-05-2024 WBC corrected for nucl RBC Auto (Bld) [#/Vol]7.2 10*3/uL3.8-11.6FLicking Memorial HospitalLeukocytes [#/volume] in Blood by Automated countOrdered By: Mikey Gallegos on 32-49-5630EFZ (Bld) [#/Vol]7.2 10*3/uLNormal3.8-11.6 [facility] HospitalComment on above:Performed By: #### CBC, CK, HS TROP, BNP, BMP, PTT, PT #### [facility] [address] [place] [address] USALymphocytes [#/volume] in Blood by Automated countOrdered By: Mikey Gallegos on 21-12-2096Yvpgyczdhhw (Bld) [#/Vol]1.8 10*3/uLNormal 1.00-4.8[facility] HospitalComment on above:Performed By: #### CBC, CK, HS TROP, BNP, BMP, PTT, PT #### [facility] [address] [place] [id number] USALymphocytes/100 leukocytes in Blood by Automated count Ordered By: Mikey Gallegos on 48-62-7512Oowfrfxjtrx/100 WBC (Bld)24.6 %Normal. [facility] City HospitalComment on above:Performed By: #### CBC, CK, HS TROP, BNP, BMP, PTT, PT #### [facility] [address] [place] [address] [facility] [Entitic mass] by Automated countOrdered By: Mikey Gallegos on 61-49-6782GYK (RBC) [Entitic mass]28.4 bmPflmje77.7-34.3FLicking Memorial HospitalComment on above:Performed By: #### CBC, CK, HS TROP, BNP, BMP, PTT, PT #### [facility] [address] [place], [place] [address] [facility] Auto (RBC) [Mass/Vol]Ordered By: Mikey Gallegos on 03-46-4210LSEJ (RBC) [Mass/Vol]33.3 g/dL32.0-35.0L[facility] City HospitalMCV [Entitic volume] by Automated countOrdered By: Mikey Gallegos on 85-97-4587LND (RBC) [Entitic vol]85.5 gURjmgwn08-425GbprgkbibLima City HospitalComment on above:Performed By: #### CBC, CK, HS TROP, BNP, BMP, PTT, PT #### [facility] [address] [place] [id number] USAMonocyte distribution width [Entitic volume] in Blood by AutomatedOrdered By: Mikey Gallegos on 18-48-9035Nqmpqons distribution width Auto (Bld) [Entitic vol]19.82 %0.00-20.00[facility] Neutrophils [#/volume] in Blood by Automated countOrdered By: Mikey Gallegos on 57-60-7392Dvcehtykufy (Bld) [#/Vol]4.8 10*3/uLNormal1.8-7.7FLicking Memorial HospitalComment on above:Performed By: #### CBC, CK, HS TROP, BNP, BMP, PTT, PT #### [facility] [address] [place] [address] USANo Panel InformationOrdered By: Mikey Gallegos on 51-92-3762Skfvajjzs GFR (CKD-EPI)> 60.0 mL/MinLima City Hospital Pharmacy Creatinine Clearance (Chem78.28[facility] Nucleated erythrocytes [Presence] in Blood by Automated countOrdered By: Mikey Gallegos on 57-52-3689Iuzlpwrlt RBC Auto Ql (Bld)0.2 /100{WBC}0-0.5FLicking Memorial HospitalPartial Thromboplastin Timeon 57-46-3622yPNV Coag (Bld) [Time]39.4 sHigh25.1-36.5The [facility] Physician GroupComment on above:Result Comment: A hematocrit value greater than 55% may lead to inaccurate results in coagulation testing. Patients having hematocrit values >55% require a special collection tube for coagulation studies. Please contact the laboratory at [phone] for redraw instructions. PERFORMED BY: [place] [id number] PATHOLOGIST ANIMATION PRODUCER JAKE SAN M.D.Performed By: #### CBC, CK, HS TROP, BNP, BMP, PTT, PT ####[facility] [address] [place] [address] USAPlatelet mean volume [Entitic volume] in Blood by Automated countOrdered By: Mikey Gallegos on 61-50-9651Rkozqcha mean volume (Bld) [Entitic vol]8.4 fLNormal6.3-10.7 [facility] HospitalComment on above:Performed By: #### CBC, CK, HS TROP, BNP, BMP, PTT, PT #### [facility] [address] [place] [address] USAPlatelets [#/volume] in Blood by Automated countOrdered By: Mikey Gallegos on 25-29-0301Onohybvsv (Bld) [#/Vol]302 10*3/zTFescae924-129 [facility] HospitalComment on above:Performed By: #### CBC, CK, HS TROP, BNP, BMP, PTT, PT #### [facility] [address] [place] [address] USAPotassium [Moles/volume] in Serum or PlasmaOrdered By: Mikey Gallegos on 93-28-0238Cqllujthq [Moles/Vol]3.8 mmol/LNormal3.5-5.1 [facility] HospitalComment on above:Performed By: #### CBC, CK, HS TROP, BNP, BMP, PTT, PT #### [facility] [address] [place] [id number] USAProthrombin time (PT)Ordered By: Mikey Gallegos on 59-74-6408OR Coag (PPP) [Time]12.1 sNormal9.0-12.9[facility] HospitalComment on above:A hematocrit value greater than 55% may lead to inaccurate results in coagulation testing. Patientshaving hematocrit values >55% require a special collection tube for coagulation studies. Please contact the laboratory at [phone] for redraw instructions.Result Comment: A hematocrit value greater than 55% may lead to inaccurate results in coagulation testing. Patients having hematocrit values >55% require a special collection tube for coagulation studies. Please contact the laboratory at [phone] for redraw instructions.Performed By: #### CBC, CK, HS TROP, BNP, BMP, PTT, PT ####[facility] [place] [address] USASerum or plasma anion gap determinationOrdered By: Mikey Gallegos on 32-68-4538Uztin gap [Moles/Vol]10.5 mmol/LNormal6.0-15.0[facility] HospitalComment on above:Performed By: #### CBC, CK, HS TROP, BNP, BMP, PTT, PT #### [facility] [address] [place] [address] USASodium [Moles/volume] in Serum or PlasmaOrdered By: Mikey Gallegos on 85-90-0047Zexeqt [Moles/Vol]136 mmol/AWfdijb068-901RkoubpphoLima City HospitalComment on above:Performed By: #### CBC, CK, HS TROP, BNP, BMP, PTT, PT #### [facility] [address] [place] [address] USATroponin I High Sensitivityon 87-03-4270Aqbcbcto I High Sensitivity3.5 pg/mLNormal0.0-15.0The [facility] Physician GroupComment on above: Result Comment: PERFORMED BY: [facility] [address] [place] [address] PATHOLOGIST ANIMATION PRODUCER AJKE SAN M.D.Performed By: #### HS TROP #### [facility] [address] [place] [address] USATroponin I High Sensitivity3.7 pg/mLNormal0.0-15.0The [facility] Physician GroupComment on above:Result Comment: PERFORMED BY: [facility] [address] [place] [address] PATHOLOGIST ANIMATION PRODUCER JAKE SAN M.D.Performed By: #### CBC, CK, HS TROP, BNP, BMP, PTT, PT ####[facility] [place] [address] USATroponin I.cardiac [Mass/volume] in Serum or Plasma by Detection limit <= 0.01 ng/ Ordered By: Mikey Gallegos on 84-84-4366Qxyqbgdv I.cardiac DL <= 0.01 ng/mL [Mass/Vol]3.5 pg/mL0.0-15.0L[facility] City HospitalUrea nitrogen [Mass/volume] in Serum or PlasmaOrdered By: Mikey Gallegos on 43-43-8098Fcze nitrogen [Mass/Vol]14 mg/dLNormal-[facility] HospitalComment on above:Performed By: #### CBC, CK, HS TROP, BNP, BMP, PTT, PT #### [facility] [address] [place] [address] USAXR chest 1V portableon 34-74-7399FH chest 1V portable [facility] [place] [address] [place] [address] XRay Report Signed Patient: Julia Villeda MR#: [id number] : 1950 Acct:[id number] Age/Sex: 73 / F ADM Date: 02/05/24 Loc: ER Room: Type: [facility] ER Attending Dr: Copies to: Mikey Gallegos [...] Claudette Olivares M.D.02/05/2024 8:52 PM Dictation Location: [place] [address] Transcribed By: [facility] 02/05/242051 Dictated By: Claudette Olivares MD 02/05/242051 Signed By: 02/05/242051[facility] Physician GroupECG [address] 09-30-2023 [facility] Work Phone: EKG shows normal sinus rhythm at 69 bpm with MT interval of 172 ms QRS duration 106 ms QTc 424 ms. Incomplete right bundle branch block probable.CPATriHealth [facility] Work Phone: nm Heart Perfusion W stress and W radionuclide Lucy 55-95-7459Dnjsll Lexiscan Myoview cardiac perfusion stress test. No evidence of ischemia or myocardial infarction by perfusion imaging. Normal left ventricular systolic function, ejection fraction 68%. No change when compared to previous study. Signed by: Edelmira Pardo 09/26/2023 5:25 PM Dictation workstation: [id number] By: Edelmira Pardo, Bo Shah STUDY: MYOCARDIAL PERFUSION STRESS TEST WITH LEXISCAN Performing facility: [facility], [address] [place] [address], [address], [address] Provider: Mary Alice Tatum MD, FACC PCP: Dr. Antoni Jha Supervising provider: Ubaldo Swenson MD, FACC INDICATION: PSVT, palpitations Abnormal EKG; Presyncope HISTORY: Gender: F; Age: 73 y/o ; Height: HT 171.5 cm cm; Weight: WT 107.049 kg kg. Abnormal EKG; HTN; Arrhythmias; Syncope; Palpitations; RBBB Denies smoking. COMPARISON: Previous nuclear testing completed [address] [facility]. ACCESSION NUMBER(S): [id number] ORDERING CLINICIAN: MARY ALICE TATUM TECHNIQUE: TWO [...] There were no evidence of attenuation artifact. MMODALEdelmira Pardo MD - 09/26/2023 Interpreted By: Edelmira Pardo and Beal Gina STUDY: MYOCARDIAL PERFUSION STRESS TEST WITH LEXISCAN Performing facility: [facility], [address] [place] [address], [address], [address] Provider: Mary Alice Tatum MD, FACC PCP: Dr. Antoni Jha Supervising provider: Ubaldo Swenson MD, FACC INDICATION: PSVT, palpitations Abnormal EKG; Presyncope HISTORY: Gender: F; Age: 73 y/o ; Height: HT 171.5 cm cm; Weight: WT 107.049 kg kg. Abnormal EKG; HTN; Arrhythmias; Syncope; Palpitations; RBBB Denies smoking. COMPARISON: Previous nuclear testing completed [address] [facility]. ACCESSION NUMBER(S): [id number] ORDERING CLINICIAN: MARY ALICE TATUM TECHNIQUE: TWO [...] Edelmira Pardo 09/26/2023 5:25 PM Dictation workstation: [id number] [facility] Work Phone: nm Heart Perfusion W stress and W radionuclide IV Ordered By: Edelmira Pardo on 42-07-9761TyjiqpctshBarnesville Hospital Work Phone: nUCLEAR STRESS TEST EXERCISE (CARD)on 09-26-2023 Interpreted By: Edelmira Pardo, Bo Shah STUDY: MYOCARDIAL PERFUSION STRESS TEST WITH LEXISCAN Performing facility: [facility], [address] [place] [address], [address], [address] Provider: Mary Alice Tatum MD, FACC PCP: Dr. Antoni Jha Supervising provider: Ubaldo Swenson MD, FACC INDICATION: PSVT, palpitations Abnormal EKG; Presyncope HISTORY: Gender: F; Age: 73 y/o ; Height: HT 171.5 cm cm; Weight: WT 107.049 kg kg. Abnormal EKG; HTN; Arrhythmias; Syncope; Palpitations; RBBB Denies smoking. COMPARISON: Previous nuclear testing completed [address] [facility]. ACCESSION NUMBER(S): [id number] ORDERING CLINICIAN: MARY ALICE TATUM TECHNIQUE: TWO [...] Edelmira Pardo 09/26/2023 5:25 PM Dictation workstation: [id number], Radiologist, - 09/26/2023 Interpreted By: Edelmira Pardo and Beal Gina STUDY: MYOCARDIAL PERFUSION STRESS TEST WITH LEXISCAN Performing facility: [facility], [address] [place] [address], [address], [address] Provider: Mary Alice Tatum MD, FACC PCP: Dr. Antoni Jha Supervising provider: Ubaldo Swenson MD, FACC INDICATION: PSVT, palpitations Abnormal EKG; Presyncope HISTORY: Gender: F; Age: 73 y/o ; Height: HT 171.5 cm cm; Weight: WT 107.049 kg kg. Abnormal EKG; HTN; Arrhythmias; Syncope; Palpitations; RBBB Denies smoking. COMPARISON: Previous nuclear testing completed [address] [facility]. ACCESSION NUMBER(S): [id number] ORDERING CLINICIAN: MARY ALICE TATUM TECHNIQUE: TWO [...] Edelmira Pardo 09/26/2023 5:25 PM Dictation workstation: [id number] [facility] Mobile Location, IPNUCLEAR STRESS TEST EXERCISE (CARD)Ordered By: Radiologist Radiology on 70-72-1004FTSV Mobile Location, IP Work Phone: nm Heart Perfusion W stress and W radionuclide Lucy 99-32-8828Kiqdtujwm Study observation (narrative)[facility] Work Phone: NUCLEAR STRESS TESTon 22-65-5072FJZZBXH STRESS TEST Interpreted By: Edelmira Pardo and Beal Gina STUDY: MYOCARDIAL PERFUSION STRESS TEST WITH LEXISCAN Performing facility: [facility], [address] [place] [address], [address], [place] [address] [facility] Provider: Mary Alice Tatum MD, FACC PCP: Dr. Antoni Jha Supervising provider: Ubaldo Swenson MD, FACC INDICATION: PSVT, palpitations Abnormal EKG; Presyncope HISTORY: Gender: F; Age: 73 y/o ; Height: HT 171.5 cm cm; Weight: WT 107.049 kg kg. Abnormal EKG; HTN; Arrhythmias; Syncope; Palpitations; RBBB Denies smoking. COMPARISON: Previous nuclear testing completed [address] [facility]. ACCESSION NUMBER(S): [id number] ORDERING CLINICIAN: MARY ALICE TATUM TECHNIQUE: TWO [...] Edelmira Pardo 09/26/2023 5:25 PM Dictation workstation: [id number] County Hospital NUCLEAR STRESS TEST EXERCISE (CARD)on 23-48-3378Jxhakcbmv Study observation (narrative)NOMS [facility] [address] 76-60-5497Qvgomb sinus rhythm, normal MT interval, right bundle branch block normal QTc. Right bundle branch block is noted on prior EKGs as wellCPLouis Stokes [facility] Work Phone: ca cardiac event monitoron 39-33-4158QC cardiac event monitorLICKING MEMORIAL [facility] [address] [place] [address] Cardiac Event Monitor Signed Patient: Julia Villeda MR#: [id number] : 1950 Acct:[id number] Age/Sex: 73 / F ADM Date: 07/17/23 Loc: Room: Type: [facility] Attending Dr: Nancy Jha DO Copies to: [...] episodes were noted. Transcribed By: DIONICIO 08/13/23 6933 Dictated By: Edelmira Pardo MD 08/13/23 1206 Signed By: 08/14/[address] [place] [address] Physician GroupXR hip RT min 2V(w/wo pelvis)*on 67-00-3514VB hip RT min 2V(w/wo pelvis)*[facility] [employer] Other XR hip RT min 2V(w/wo pelvis)*[facility] [employer] Other XR hip RT min 2V(w/wo pelvis)*[address] [place] [address] [employer] Other XR hip RT min 2V(w/wo pelvis)*[place], [place] [address]Nhgjt [place] Other XR hip RT min 2V(w/wo pelvis)*XRay ReportLa Salle [place] Other XR hip RT min 2V(w/wo pelvis)*SignedLa [place]alle [place] Other XR hip RT min 2V(w/wo pelvis)*Patient: Julia Villeda MR#: [id number] [place] Other XR hip RT min 2V(w/wo pelvis)*[address] Other XR hip RT min 2V(w/wo pelvis)*: 1950 Acct:[id number] Other XR hip RT min 2V(w/wo pelvis)*Age/Sex: 73 / F ADM Date: 03/27/23[place] Other XR hip RT min 2V(w/wo pelvis)*Loc: [facility] [place] Room: Type: [facility] [employer] Other XR hip RT min 2V(w/wo pelvis)*Attending Dr: Herman Chang II NJSkyonic Other XR hip RT min 2V(w/wo pelvis)*Copies to: Herman Chang MDChtiogen [place] Other XR hip RT min 2V(w/wo pelvis)*Ordering Provider: Herman Chang MDSkyonic Other XR hip RT min 2V(w/wo pelvis)*Date of Service: 03/27/23[employer] Other XR hip RT min 2V(w/wo pelvis)* XR/XR hip RT min 2V(w/wo pelvis)*: S/P total right hip arthroplastyLa Salle [place] Other XR hip RT min 2V(w/wo pelvis)*RIGHT HIP WITH LOW AP PELVIS- 2 views:[employer] Other XR hip RT min 2V(w/wo pelvis)*CLINICAL HISTORY: Follow-up right hip replacementLa Salle [place] Other XR hip RT min 2V(w/wo pelvis)*COMPARISON: 02/11/2023 [employer] Other XR hip RT min 2V(w/wo pelvis)*AP weight-bearing low pelvis and crosstable lateral view of the right hip were obtained. The right [employer] Other XR hip RT min 2V(w/wo pelvis)*hip prosthesis is again visualized. The hardware appears intact and unchanged from the prior.[employer] Other XR hip RT min 2V(w/wo pelvis)*There is no developing fracture or dislocation. There are no significant soft tissue abnormalities. [employer] Other XR hip RT min 2V(w/wo pelvis)* XR/XR hip RT min 2V(w/wo pelvis)*[employer] Other XR hip RT min 2V(w/wo pelvis)*IMPRESSION:[employer] Other XR hip RT min 2V(w/wo pelvis)*STABLE HIP PROSTHESIS [employer] Other XR hip RT min 2V(w/wo pelvis)*Impression dictated by: Claudette Olivares M.D.03/27/2023 2:28 [facility] [place] Other XR hip RT min 2V(w/wo pelvis)*Dictation Location: [id number] [place] Other XR hip RT min 2V(w/wo pelvis)*Transcribed By: [facility] 03/27/23 142[facility] [place] Other XR hip RT min 2V(w/wo pelvis)*Dictated By: Claudette Olivares MD 03/27/[address] [place] [address] [place] Other XR hip RT min 2V(w/wo pelvis)*Signed By:[place] Other XR hip RT min 2V(w/wo pelvis)*03/27/23 1421[place] Other Basophils Auto (Bld) [#/Vol]Ordered By: Herman Chang on 18-73-6224Vhpejajio (Bld) [#/Vol]0.0 10*3/uL0.0-0.2FLicking Memorial HospitalBasophils/100 WBC Auto (Bld)Ordered By: Herman Chang on 12-35-2313Wegmlmpxw/100 WBC (Bld)0.6 %.[facility] Bilirubin Test strip Ql (U)Ordered By: Herman Chang on 34-67-6191Enngrystc Ql (U)NegativeNegativeLima City HospitalCalcium [Mass/volume] in Serum or PlasmaOrdered By: Herman Chang on 38-15-4791Pjwkklf [Mass/Vol]9.6 mg/dL8.6-10.3FLicking Memorial HospitalCarbon dioxide, total [Moles/volume] in Serum or PlasmaOrdered By: Herman Chang on 85-24-0684QY3 [Moles/Vol]31.3 mmol/L21.0-31.0[facility] HospitalChloride [Moles/volume] in Serum or PlasmaOrdered By: Herman Chang on 01-29-2023 Chloride [Moles/Vol]101 mmol/C83-790RbkietzlpLima City HospitalColor Auto (U)Ordered By: Herman Chang on 56-87-8907Qnuyw (U)YellowYellowLima City HospitalCreatinine [Mass/volume] in Serum or PlasmaOrdered By: Herman Chang on 18-19-0188Ibcspuexpv [Mass/Vol]0.72 mg/dL0.60-1.20[facility] HospitalEosinophils Auto (Bld) [#/Vol]Ordered By: Herman Chang on 23-75-0086Yqxqgjtibbb (Bld) [#/Vol]0.1 10*3/uL0.0-0.45L[facility] HospitalEosinophils/100 WBC Auto (Bld)Ordered By: Herman Chang on 43-31-3933Jmporeblbgp/100 WBC (Bld)2.3 %.[facility] Erythrocyte distribution width Auto (RBC) [Ratio]Ordered By: Herman Chang on 04-02-9079Iwjmmellnie distribution width (RBC) [Ratio]14.7 %11.9-15.3FLicking Memorial HospitalFructosamine [Moles/volume] in Serum or PlasmaOrdered By: Herman Chang on 66-37-3180Fpxmrquttwvu [Moles/Vol]235 umol/L0-285L[facility] City HospitalComment on above:Published reference interval for apparently healthysubjects between age 20 and 60 is 205 - 285 umol/L and in apoorly controlled diabetic population is 228 - 563 umol/Lwith a mean of 396 umol/L.Performed at: [facility] [id number] Director: Billy Stringer PhD, Phone: [phone] [Mass/volume] in Serum or PlasmaOrdered By: Herman Chang on 57-20-0843Funqtyr [Mass/Vol]93 mg/uC42-784RhzkwspxvLima City HospitalComment on above:ADA recommended reference rangeRandom Glucose Reference Range is dependent on time and content of last meal. Glucose of more than 200 mg/dL in a nonstressed, ambulatory subject supports the diagnosisof Diabetes Mellitus.Hematocrit Auto (Bld) [Volume fraction]Ordered By: Herman Chang on 45-17-0931Bkvuivnnou (Bld) [Volume fraction]36.5 %34.0-46.4FLicking Memorial HospitalHemoglobin [Mass/volume] in BloodOrdered By: Herman Chang on 54-59-1247Bqnzwwmugf (Bld) [Mass/Vol]12.2 g/dL11.8-15.4FLicking Memorial HospitalKetones Auto test strip (U) [Mass/Vol]Ordered By: Herman Chang on 69-56-4759Rhknsui (U) [Mass/Vol]NegativeNegativeLima City HospitalLeukocytes [#/volume] corrected for nucleated erythrocytes in Blood by Automated counOrdered By: Herman Chang on 34-56-0484WEZ corrected for nucl RBC Auto (Bld) [#/Vol]5.8 10*3/uL3.8-11.6FLicking Memorial HospitalLymphocytes Auto (Bld) [#/Vol] Ordered By: Herman Chang on 08-04-7847Fpuydpxxlmq (Bld) [#/Vol]1.9 10*3/uL 1.00-4.8L[facility] HospitalLymphocytes/100 WBC Auto (Bld)Ordered By: Herman Chang on 30-92-5007Ihymxlazocv/100 WBC (Bld)32.7 %.[facility] Auto (RBC) [Entitic mass]Ordered By: Herman Chang on 39-16-5781LSV (RBC) [Entitic mass]27.3 pg24.7-34.3FLicking Memorial HospitalMCHC Auto (RBC) [Mass/Vol]Ordered By: Herman Chang on 55-20-4691YCQM (RBC) [Mass/Vol]33.4 g/dL32.0-35.0[facility] HospitalMCV Auto (RBC) [Entitic vol]Ordered By: Herman Chang on 05-62-4206TJS (RBC) [Entitic vol]81.8 dT59-069ImtgpqcmzLima City HospitalMonocytes Auto (Bld) [#/Vol] Ordered By: Herman Chang on 38-06-5614Judxxjlqj (Bld) [#/Vol]0.5 10*3/uL 0.0-0.8[facility] HospitalMonocytes/100 WBC Auto (Bld)Ordered By: Herman Chang on 21-42-0807Chfjhxbri/100 WBC (Bld)9.0 %.[facility] HospitalNeutrophils Auto (Bld) [#/Vol]Ordered By: Herman Chang on 62-62-1450Nmkfxasyzek (Bld) [#/Vol]3.2 10*3/uL1.8-7.7FLicking Memorial HospitalNeutrophils/100 WBC Auto (Bld)Ordered By: Herman Chang on 01-29-2023 Neutrophils/100 WBC (Bld)55.4 %.[facility] HospitalNitrite Test strip Ql (U)Ordered By: Herman Chang on 66-56-9374Czyxpjb Ql (U)Negative NegativeLima City HospitalNo Panel InformationOrdered By: Herman Chang on 97-17-1778Gqqleagbb GFR (CKD-EPI)> 60.0 mL/MinLima City HospitalPharmacy Creatinine Clearance (ChemN/AFLicking Memorial HospitalNucleated erythrocytes [Presence] in Blood by Automated countOrdered By: Herman Chang on 62-28-5669Asvihdsna RBC Auto Ql (Bld)0.1 /100{WBC}0-0.5 [facility] HospitalPlatelet mean volume Auto (Bld) [Entitic vol] Ordered By: Herman Chang on 84-64-8998Vvkcqkeh mean volume (Bld) [Entitic vol]8.0 fL6.3-10.7FLicking Memorial HospitalPlatelets Auto (Bld) [#/Vol] Ordered By: Herman Chang on 12-00-1983Dsqesdyjt (Bld) [#/Vol]263 10*3/uL 150-450L[facility] HospitalPotassium [Moles/volume] in Serum or PlasmaOrdered By: Herman Chang on 78-87-4161Fxnhqtwpa [Moles/Vol]4.0 mmol/L 3.5-5.1FLicking Memorial HospitalProtein Auto test strip (U) [Mass/Vol] Ordered By: Herman Chang on 25-48-5235Dettomy (U) [Mass/Vol]NegativeNegative [facility] HospitalRBC Auto (Bld) [#/Vol]Ordered By: Herman Chang on 96-12-9221TZE (Bld) [#/Vol]4.46 10*6/uL3.60-5.00Galion Hospitalerum or plasma anion gap determinationOrdered By: Herman Chang on 93-02-1150Nbljy gap [Moles/Vol]10.7 mmol/L6.0-15.0Galion Hospitalodium [Moles/volume] in Serum or PlasmaOrdered By: Herman Chang on 66-50-2704Kfhwhv [Moles/Vol]139 mmol/S129-492DalbxuxgaLima City Hospital Specific gravity Auto test strip (U) [Rel density]Ordered By: Herman Chang on 32-65-1549Doramlpf gravity (U) [Rel density]1.0071.001-1.030L[facility] HospitalUrea nitrogen [Mass/volume] in Serum or PlasmaOrdered By: Herman Chang on 23-88-0048Bbry nitrogen [Mass/Vol]14 mg/dL7-25L[facility] HospitalUrine clarity by refractometry automatedOrdered By: Herman Chang on 87-55-1763Mtitrjg Refractometry automated (U)ClearClearFLicking Memorial HospitalUrine glucose measurement by automated test strip (mass/volume)Ordered By: Herman Chang on 58-78-8652Apniizg Auto test strip (U) [Mass/Vol]Normal mg/dLNoGerman HospitalUrine hemoglobin detection by automated test stripOrdered By: Herman Chang on 45-26-6070Uhksvlkrst Auto test strip Ql (U)NegativeNegFulton County Health CenterUrine leukocyte esterase detection by automated test stripOrdered By: Herman Chang on 47-42-7724Uglikjsfi esterase Auto test strip Ql (U) NegativeNegFulton County Health CenterUrobilinogen Auto test strip (U) [Mass/Vol]Ordered By: Herman Chang on 12-62-8290Psumzizpgbkc (U) [Mass/Vol]Normal mg/dLNoGerman HospitalWBC Auto (Bld) [#/Vol]Ordered By: Herman Chang on 01-97-8080NEV (Bld) [#/Vol]5.8 10*3/uL 3.8-11.6FLicking Memorial HospitalpH Auto test strip (U)Ordered By: Herman Chang on 34-54-0907xS (U)7.5 [pH]5.0-9.0[facility] HospitalAlbumin [Mass/volume] in Serum or Plasma by Bromocresol green (BCG) dye binding methoOrdered By: Herman Chang on 53-07-3423Glpanaw BCG dye [Mass/Vol] 4.2 g/dL3.5-5.7FLicking Memorial HospitalCotinine [Mass/volume] in Serum or PlasmaOrdered By: Herman Chang on 26-30-8823Uojgdzje [Mass/Vol]<1.0 ng/mL. [facility] HospitalComment on above:This test was developed and its performance characteristicsdetermined by [employer]. It has not been cleared orapproved by the Food and Drug Administration.Cotinine levels greater than 20.0 are consistent with theuse of tobacco or tobacco cessation products.Performed at: [address] [id number] Director: Jonathan Buckley MD, Phone: [phone] mean value [Mass/volume] in Blood Estimated from glycated hemoglobinOrdered By: Herman Chang on 37-37-7444Zxcyvmi glucose Estimated from glycated hemoglobin (Bld) [Mass/Vol]123 mg/dLLima City HospitalHemoglobin A1c percentageOrdered By: Herman Chang on 35-23-0707ChA3x (Bld) [Mass fraction]5.9 %4.3-5.6FLicking Memorial HospitalComment on above:Increased risk for diabetes: 5.7 - 6.4diabetes: >6.4glycemic control for adults with diabetes: <7.0Hemoglobin [Mass/volume] in BloodOrdered By: Herman Chang on 43-17-8898Seyhvirtsb (Bld) [Mass/Vol]11.8 g/dL11.8-15.4FLicking Memorial HospitalNicotine [Mass/volume] in Serum or PlasmaOrdered By: Herman Chang on 12-20-2022 Nicotine [Mass/Vol]<1.0 ng/mL.[facility] HospitalComment on above: This test was developed and its performance characteristicsdetermined by [employer]. It has not been cleared orapproved by the Food and Drug Administration.Nicotine levels greater than 2.0 are consistent with theuse of tobacco or tobacco cessation products.Vitamin D+Metabolites [Mass/volume] in Serum or PlasmaOrdered By: Herman Chang on 03-69-0903Gkpsker D+Metabolites [Mass/Vol]71.4 ng/cH27-949MnetypxldLima City HospitalComment on above: VITAMIN D STATUS 25(OH)VITAMIN D RANGE (ng/mL) Deficient <20 Insufficient 20 to <69Lehytocdjh45 to 100Reference: Sangeeta BLEDSOE,Rudy NC, Rissa COOK, et al. Evaluation,treatment, and prevention of vitamin D deficiency; an Endocrine Society clinical practice guideline. JCEM. 2010; 96(7):1911-30.Wound methicillin resistant Staphylococcus aureus (MRSA) cultureOrdered By: Herman Chang on 65-62-3748KUIX isol Org specific cx Ql (Unsp spec)No MRSA Isolated 2 DaysLima City HospitalBasophils Auto (Bld) [#/Vol]Ordered By: Nancy Jha on 22-39-9451Hahpcdbvj (Bld) [#/Vol]0.0 10*3/uL0.0-0.2FLicking Memorial HospitalBasophils/100 WBC Auto (Bld)Ordered By: Nancy Jha on 42-97-6141Fxepoxxeq/100 WBC (Bld)0.7 %.[facility] Eosinophils Auto (Bld) [#/Vol]Ordered By: Nancy Jha on 11-20-2022 Eosinophils (Bld) [#/Vol]0.2 10*3/uL0.0-0.45[facility] Eosinophils/100 WBC Auto (Bld)Ordered By: Nancy Jha on 11-20-2022 Eosinophils/100 WBC (Bld)4.2 %.[facility] HospitalErythrocyte distribution width Auto (RBC) [Ratio]Ordered By: Nancy Jha on 11-20-2022 Erythrocyte distribution width (RBC) [Ratio]14.2 %11.9-15.3FLicking Memorial HospitalFerritin [Mass/volume] in Serum or PlasmaOrdered By: Nancy Jha on 03-63-3017Zyfqqvcl [Mass/Vol]81.9 ng/mL11.0-306.8[facility] HospitalFolate [Mass/volume] in Serum or PlasmaOrdered By: Nancy Jha on 17-58-8661Zggtfp [Mass/Vol]41.0 ng/mL>5.9[facility] HospitalComment on above:Folate reference range: >5.9 ng/mlThe WHO technical consultation on folate and vitamin b82waoudutoktpr has determined that folate concentrations lessthan 4 ng/ml are considered deficient.Hematocrit Auto (Bld) [Volume fraction]Ordered By: Nancy Jha on 10-05-6112Iduuxygvjc (Bld) [Volume fraction]35.3 %34.0-46.4FLicking Memorial HospitalHemoglobin [Mass/volume] in BloodOrdered By: Nancy Jha on 18-48-0637Gqkvjfhrzm (Bld) [Mass/Vol]11.9 g/dL11.8-15.4FLicking Memorial HospitalIron [Mass/volume] in Serum or PlasmaOrdered By: Nancy Jha on 47-04-8096Erpq [Mass/Vol]42 ug/xY14-319MptjyxxovLima City HospitalIron binding capacity [Mass/volume] in Serum or PlasmaOrdered By: Nancy Jha on 17-23-1961Mzgh binding capacity [Mass/Vol]358 ug/zS634-084KhnhffoqbLima City HospitalIron saturation [Mass Fraction] in Serum or PlasmaOrdered By: Nancy Jha on 83-78-6701Awpo saturation [Mass fraction]11.7 %20-50[facility] HospitalLeukocytes [#/volume] corrected for nucleated erythrocytes in Blood by Automated counOrdered By: Nancy Jha on 44-97-9112TJS corrected for nucl RBC Auto (Bld) [#/Vol]5.0 10*3/uL3.8-11.6FLicking Memorial Hospital Lymphocytes Auto (Bld) [#/Vol]Ordered By: Nancy Jha on 11-20-2022 Lymphocytes (Bld) [#/Vol]1.8 10*3/uL1.00-4.8[facility] Lymphocytes/100 WBC Auto (Bld)Ordered By: Nancy Jha on 11-20-2022 Lymphocytes/100 WBC (Bld)35.8 %.[facility] HospitalH Auto (RBC) [Entitic mass]Ordered By: Nancy Jha on 59-29-6915UAO (RBC) [Entitic mass] 27.4 pg24.7-34.3FLicking Memorial HospitalMCHC Auto (RBC) [Mass/Vol] Ordered By: Nancy Jha on 77-95-0627ZZWP (RBC) [Mass/Vol]33.6 g/dL 32.0-35.0[facility] HospitalMCV Auto (RBC) [Entitic vol]Ordered By: Nancy Jha on 86-91-9276AWI (RBC) [Entitic vol]81.4 mO23-961PxpxygglnLima City HospitalMagnesium [Mass/volume] in Serum or PlasmaOrdered By: Nancy Jha on 68-74-8741Ntmpvxbii [Mass/Vol]2.1 mg/dL1.9-2.7FLicking Memorial HospitalMonocytes Auto (Bld) [#/Vol]Ordered By: Nancy Jha on 56-04-9012Uveamyfzm (Bld) [#/Vol]0.6 10*3/uL0.0-0.8[facility] HospitalMonocytes/100 WBC Auto (Bld)Ordered By: Nancy Jha on 11-20-2022 Monocytes/100 WBC (Bld)11.2 %.[facility] HospitalNeutrophils Auto (Bld) [#/Vol]Ordered By: Nancy Jha on 62-60-0252Kttpevtgejh (Bld) [#/Vol] 2.4 10*3/uL1.8-7.7FLicking Memorial HospitalNeutrophils/100 WBC Auto (Bld)Ordered By: Nancy Jha on 87-48-4283Kovshwfziuv/100 WBC (Bld)48.1 %. [facility] HospitalNucleated erythrocytes [Presence] in Blood by Automated countOrdered By: Nancy Jha on 57-76-5846Wjjmwdzky RBC Auto Ql (Bld)0.1 /100{WBC}0-0.5Firelands Regional Medical CenterPlatelet mean volume Auto (Bld) [Entitic vol]Ordered By: Nancy Jha on 34-18-9680Rhdpbflz mean volume (Bld) [Entitic vol]7.9 fL6.3-10.7FLicking Memorial Hospital Platelets Auto (Bld) [#/Vol]Ordered By: Nancy Jha on 48-20-9942Dvbgbtebh (Bld) [#/Vol]290 10*3/cU513-226ZadcgalqiLima City HospitalRBC Auto (Bld) [#/Vol]Ordered By: Nancy Jha on 04-92-9697XUM (Bld) [#/Vol]4.34 10*6/uL 3.60-5.00[facility] HospitalThyrotropin [Units/volume] in Serum or PlasmaOrdered By: Nancy Jha on 46-09-4692SXS Qn0.69 m[IU]/L0.45-5.33 [facility] HospitalThyroxine (T4) free [Mass/volume] in Serum or PlasmaOrdered By: Nancy Jha on 64-57-0301Oqqf T4 [Mass/Vol]0.88 ng/dL 0.61-1.12[facility] HospitalTransferrin [Mass/volume] in Serum or PlasmaOrdered By: Nancy Jha on 88-29-8940Urdvoduiuga [Mass/Vol]256 mg/dL 203-362L[facility] City HospitalVitamin B12 ser/plasOrdered By: Nancy Jha on 45-01-4358Hnicautlj (Vitamin B12) [Mass/Vol]430 pg/lF464-489 [facility] HospitalVitamin D+Metabolites [Mass/volume] in Serum or PlasmaOrdered By: Nancy Jha on 90-97-1992Csogghw D+Metabolites [Mass/Vol]63.9 ng/aT37-203RwajwmfexLima City HospitalComment on above: VITAMIN D STATUS 25(OH)VITAMIN D RANGE (ng/mL) Deficient <20 Insufficient 20 to <21Wqufyenxto44 to 100Reference: Sangeeta MF,Rudy NC, Rissa COOK, et al. Evaluation,treatment, and prevention of vitamin D deficiency; an Endocrine Society clinical practice guideline. JCEM. 2011 Raffi; 96(7):1911-30.WBC Auto (Bld) [#/Vol]Ordered By: Nancy Jha on 21-49-3160RAY (Bld) [#/Vol]5.0 10*3/uL3.8-11.6FLicking Memorial HospitalActivated partial thromboplastin time (aPTT) in platelet poor plasma by coagulation aOrdered By: Frandy Pedersen on 94-33-9825wIVV Coag (PPP) [Time]37.8 s25.1-36.5FLicking Memorial HospitalBasophils Auto (Bld) [#/Vol]Ordered By: Frandy Pedersen on 10-17-2022 Basophils (Bld) [#/Vol]0.0 10*3/uL0.0-0.2FLicking Memorial Hospital Basophils/100 WBC Auto (Bld)Ordered By: Frandy Pedersen on 02-16-5131Bhhrljfzw/100 WBC (Bld)0.7 %.[facility] HospitalCalcium [Mass/volume] in Serum or PlasmaOrdered By: Frandy Pedersen on 43-86-9248Ddmgfvy [Mass/Vol]9.0 mg/dL 8.6-10.3FLicking Memorial HospitalCarbon dioxide, total [Moles/volume] in Serum or PlasmaOrdered By: Frandy Pedersen on 60-62-3421MJ3 [Moles/Vol]30.5 mmol/L 21.0-31.0[facility] HospitalChloride [Moles/volume] in Serum or PlasmaOrdered By: Frandy Pedersen 24-09-5974Iskwqtck [Moles/Vol]102 mmol/L98-107 [facility] HospitalCreatine kinase [Enzymatic activity/volume] in Serum or PlasmaOrdered By: Frandy Pedersen on 08-28-1167CG [Catalytic activity/Vol] 48 U/P43-031GnutoswrpLima City HospitalCreatinine [Mass/volume] in Serum or PlasmaOrdered By: Frandy Pedersen on 32-61-8120Eoniramcti [Mass/Vol]0.79 mg/dL 0.60-1.20[facility] HospitalEosinophils Auto (Bld) [#/Vol]Ordered By: Frandy Pedersen on 11-72-8439Eyqzzgfkvih (Bld) [#/Vol]0.2 10*3/uL0.0-0.45 [facility] HospitalEosinophils/100 WBC Auto (Bld)Ordered By: Frandy Pedersen on 03-41-1590Jpvztveuikc/100 WBC (Bld)3.2 %.[facility] HospitalErythrocyte distribution width Auto (RBC) [Ratio]Ordered By: Frandy Pedersen on 11-55-7191Cowojfmfqqo distribution width (RBC) [Ratio]13.9 % 11.9-15.3FLicking Memorial HospitalGlucose [Mass/volume] in Serum or PlasmaOrdered By: Frandy Pedersen on 29-27-0604Dpnbltd [Mass/Vol]114 mg/vE98-436 [facility] HospitalComment on above:ADA recommended reference rangeRandom Glucose Reference Range is dependent on time and content of last meal. Glucose of more than 200 mg/dL in a nonstressed, ambulatory subject supports the diagnosisof Diabetes Mellitus.Hematocrit Auto (Bld) [Volume fraction]Ordered By: Frandy Pedersen on 41-82-9962Fgvvkhayke (Bld) [Volume fraction]35.9 %34.0-46.4FLicking Memorial HospitalHemoglobin [Mass/volume] in BloodOrdered By: Frandy Pedersen on 88-81-6079Svjmvzhbyh (Bld) [Mass/Vol]11.8 g/dL11.8-15.4FLicking Memorial HospitalLaboratory - CoagulationOrdered By: Frandy Pedersen on 99-25-7617TU Coag (PPP) [Time]12.3 s 9.0-12.9[facility] HospitalLeukocytes [#/volume] corrected for nucleated erythrocytes in Blood by Automated counOrdered By: Frandy Pedersen on 67-92-3080HEM corrected for nucl RBC Auto (Bld) [#/Vol]5.1 10*3/uL3.8-11.6 [facility] HospitalLymphocytes Auto (Bld) [#/Vol]Ordered By: Frandy Pedersen on 61-71-7401Kqkoroazqgu (Bld) [#/Vol]1.7 10*3/uL1.00-4.8[facility] HospitalLymphocytes/100 WBC Auto (Bld)Ordered By: Frandy Pedersen on 69-01-4147Kycsjtblqer/100 WBC (Bld)32.9 %.[facility] HospitalH Auto (RBC) [Entitic mass]Ordered By: Frandy Pedersen on 95-37-1875TWN (RBC) [Entitic mass]26.7 pg24.7-34.3FLicking Memorial HospitalMCHC Auto (RBC) [Mass/Vol]Ordered By: Frandy Pedersen on 23-53-5418DTTQ (RBC) [Mass/Vol]32.9 g/dL 32.0-35.0[facility] HospitalMCV Auto (RBC) [Entitic vol]Ordered By: Frandy Pedersen on 53-97-6447EPO (RBC) [Entitic vol]81.2 rB40-814DtfbosbmgLima City HospitalMonocyte distribution width [Entitic volume] in Blood by AutomatedOrdered By: Frandy Pedersen on 54-44-4248Edecsstl distribution width Auto (Bld) [Entitic vol]16.33 %0.00-20.00[facility] HospitalMonocytes Auto (Bld) [#/Vol]Ordered By: Frandy Pedersen on 95-64-1618Svtmhtoim (Bld) [#/Vol] 0.4 10*3/uL0.0-0.8[facility] HospitalMonocytes/100 WBC Auto (Bld) Ordered By: Frandy Pedersen on 14-03-5222Hemigkwkb/100 WBC (Bld)8.8 %.[facility] HospitalNatriuretic peptide B [Mass/Vol]Ordered By: Frandy Pedersen on 71-04-8718Ryiojvjmmlq peptide B (Bld) [Mass/Vol]14.0 pg/mL5-100[facility] HospitalNeutrophils Auto (Bld) [#/Vol]Ordered By: Frandy Pedersen on 60-17-5223Qakjbfrkdky (Bld) [#/Vol]2.8 10*3/uL1.8-7.7FLicking Memorial HospitalNeutrophils/100 WBC Auto (Bld)Ordered By: Frandy Pedersen on 10-17-2022 Neutrophils/100 WBC (Bld)54.4 %.[facility] HospitalNo Panel InformationOrdered By: Frandy Pedersen on 75-56-1141Zsxseuxoe GFR (CKD-EPI)> 60.0 mL/MinLima City HospitalPharmacy Creatinine Clearance (Chem82.04 [facility] HospitalNucleated erythrocytes [Presence] in Blood by Automated countOrdered By: Frandy Pedersen on 08-37-8282Ljysznyhn RBC Auto Ql (Bld) 0.0 /100{WBC}0-0.5FLicking Memorial HospitalPlatelet mean volume Auto (Bld) [Entitic vol]Ordered By: Frandy Pedersen on 45-98-7677Ahhrecbw mean volume (Bld) [Entitic vol]7.9 fL6.3-10.7FLicking Memorial HospitalPlatelet poor plasma international normalized ratio (INR) by coagulation assay (relatOrdered By: Frandy Pedersen on 43-17-2853NHP Coag (PPP) [Relative time]1.1 {INR}[facility] HospitalComment on above:INR Therapeutic Range A) Pre- and Peroperative OAT started two weeks before surgery. NOT HIP SURGERY: 1.5 - 2.5 HIP SURGERY: 2 - 3B) Primary and secondary prevention of venous THROMBOSIS: 2 - 3C) Active venous thrombosis, pulmonary embolismand prevention of recurrent venous thrombosis: 2 - 3D) Prevention of arterial thromboembolismincluding patients with mechanical heart valves: 3 - 4.5Platelets Auto (Bld) [#/Vol] Ordered By: Frandy Pedersen on 97-94-5882Ondzutdae (Bld) [#/Vol]299 10*3/oY792-659 [facility] HospitalPotassium [Moles/volume] in Serum or Plasma Ordered By: Frandy Pedersen on 84-94-8741Vhswwtoay [Moles/Vol]3.5 mmol/L3.5-5.1 [facility] HospitalRBC Auto (Bld) [#/Vol]Ordered By: Frandy Pedersen on 38-56-2155SST (Bld) [#/Vol]4.42 10*6/uL3.60-5.00[facility] Hospitalerum or plasma anion gap determinationOrdered By: Frandy Pedersen on 02-11-6215Jreoe gap [Moles/Vol]10.0 mmol/L6.0-15.0[facility] Hospitalodium [Moles/volume] in Serum or PlasmaOrdered By: Frandy Pedersen on 77-29-9750Bvlwdz [Moles/Vol]139 mmol/X741-565VeyhhxeozL[facility] City Hospital Troponin I.cardiac [Mass/volume] in Serum or Plasma by Detection limit <= 0.01 ng/Ordered By: Frandy Pedersen on 37-78-6211Gweknxon I.cardiac DL <= 0.01 ng/mL [Mass/Vol]3.1 pg/mL0.0-15.0[facility] HospitalTroponin I.cardiac DL <= 0.01 ng/mL [Mass/Vol]5.3 pg/mL0.0-15.0[facility] Urea nitrogen [Mass/volume] in Serum or PlasmaOrdered By: Frandy Pedersen on 73-69-0329Glcl nitrogen [Mass/Vol]14 mg/dL7-25[facility] WBC Auto (Bld) [#/Vol]Ordered By: Frandy Pedersen on 54-90-8794XTT (Bld) [#/Vol]5.1 10*3/uL3.8-11.6FLicking Memorial HospitalPOINT OF CARE GLUCOSEon 51-14-9373Bbvuelr [Mass/Vol]100 mg/qJCtewvs53-210XktMarietta Osteopathic ClinicComment on above:Performed By: #### POCGLUC #### [facility] [address] [address] [address] Janelle HoffmanGlucose [Mass/Vol]106 mg/wWQsbqpm39-029Wlz [facility] Comment on above:Performed By: #### POCGLUC #### [facility] [address] [address] [address] Janelle HoffmanPROF CHEM 8 (BAS METB)on 84-20-1664Corkm gap [Moles/Vol]10.0 mmol/LNormalMarietta Osteopathic ClinicComment on above:Performed By: #### BMP #### [facility] [address] [address] [address] Janelle HoffmanCalcium [Mass/Vol]9.5 mg/dLNormal8.5-10.1The [facility] Comment on above:Performed By: #### BMP #### [facility] [address] [address] [address] Janelle HoffmanChloride [Moles/Vol]102 mmol/ECuupzt84-243PhcMarietta Osteopathic Clinic Comment on above:Performed By: #### BMP #### [facility] [address] [address] [address] Janelle HoffmanCO2 [Moles/Vol]33.5 mmol/LCritically high21.0-32.0The [facility] HospitalComment on above:Performed By: #### BMP #### [facility] [address] [place] [address] Dr. Janelle HoffmanCreatinine [Mass/Vol]0.73 mg/dLNormal0.55-1.02The [facility] HospitalComment on above:Performed By: #### BMP #### [facility] [address] [address] [address] Luis ChangEGFR-AF IRISH>60Normal>=60The [facility] HospitalComment on above:Performed By: #### BMP #### [facility] [address] [place] [address] Dr. Janelle RomeoGFR-NON AF IRISH>60Normal>=60The [facility] HospitalComment on above:Performed By: #### BMP #### [facility] [address] [place] [address] Dr. Janelle HoffmanGlucose [Mass/Vol]98 mg/yKEiifpf02-970KrqMarietta Osteopathic Clinic Comment on above:Performed By: #### BMP #### [facility] [address] [address] [address] Janelle HoffmanPotassium [Moles/Vol]3.5 mmol/LNormal3.5-5.1The [facility] Comment on above:Performed By: #### BMP #### [facility] [address] [address] [address] Janelle HoffmanSodium [Moles/Vol]142 mmol/HYrbwpc670-442Psu [facility] Comment on above:Performed By: #### BMP #### [facility] [address] [place], [place] [address] Dr. Janelle Ascencio nitrogen [Mass/Vol]11.0 mg/dLNormal7.0-18.0M[facility] Osteopathic ClinicComment on above:Performed By: #### BMP #### [facility] [address] [place], [place] [address] Dr. Janelle Ascencio nitrogen/Creatinine [Mass ratio]15.1 mg/mgNormalThe [facility] HospitalComment on above:Performed By: #### BMP #### [facility] [address] [address] [address] Janelle HoffmanXR hip RT min 2V(w/wo pelvis)*on 46-08-0833DE hip RT min 2V(w/wo pelvis)*[facility] [place] Other XR hip RT min 2V(w/wo pelvis)*[facility] [place] Other XR hip RT min 2V(w/wo pelvis)*[address] [place] [address] [place] Other XR hip RT min 2V(w/wo pelvis)*[address] [place] Other XR hip RT min 2V(w/wo pelvis)*[facility] [place] Other XR hip RT min 2V(w/wo pelvis)*[facility] [place] Other XR hip RT min 2V(w/wo pelvis)*Patient: Julia Villeda MR#: [id number] Other XR hip RT min 2V(w/wo pelvis)*326[facility] [place] Other XR hip RT min 2V(w/wo pelvis)*: 1950 Acct:[id number] Other XR hip RT min 2V(w/wo pelvis)*Age/Sex: 72 / F ADM Date: 06/20/22[place] Other XR hip RT min 2V(w/wo pelvis)*Loc: SOX Room: Type: [facility] [place] Other XR hip RT min 2V(w/wo pelvis)*Attending Dr: Herman Chang II [facility] [place] Other XR hip RT min 2V(w/wo pelvis)*Copies to: Herman Chang [facility] [place] Other XR hip RT min 2V(w/wo pelvis)*Ordering Provider: Herman Chang [facility] [place] Other XR hip RT min 2V(w/wo pelvis)*Date of Service: 06/20/22[place] Other XR hip RT min 2V(w/wo pelvis)* XR/XR hip RT min 2V(w/wo pelvis)*: Right hip painLa Salle [place] Other XR hip RT min 2V(w/wo pelvis)*2 views RIGHT hip with single view pelvisplain [facility] [place] Other XR hip RT min 2V(w/wo pelvis)*COMPARISON:06/19/11[place] Other XR hip RT min 2V(w/wo pelvis)*HISTORY:RIGHT hip pain for [facility] [place] Other XR hip RT min 2V(w/wo pelvis)*No fracture, dislocation or focal soft tissue abnormality seen.Kfue-ov-vgry contact RIGHT hipLa Salle [place] Other XR hip RT min 2V(w/wo pelvis)*degenerative changes with subarticular sclerotic and cystic changes present. Unremarkable LEFT hip. [place] Other XR hip RT min 2V(w/wo pelvis)*Mild SI joint degeneration. Spurring of the greater trochanters.[employer] Other XR hip RT min 2V(w/wo pelvis)* XR/XR hip RT min 2V(w/wo pelvis)*[employer] Other XR hip RT min 2V(w/wo pelvis)*IMPRESSION:Extensive RIGHT hip degenerative change.[employer] Other XR hip RT min 2V(w/wo pelvis)*Impression dictated by: Guille Vasquez M.D.06/20/2022 4:35 PMNmer[facility] [place] Other XR hip RT min 2V(w/wo pelvis)*Dictation Location: [id number] Other XR hip RT min 2V(w/wo pelvis)*Transcribed By: ARACELY 06/20/22 [facility] Other XR hip RT min 2V(w/wo pelvis)*Dictated By: Guille Vasquez DO 06/20/22 [facility] Other XR hip RT min 2V(w/wo pelvis)*Signed By:[employer] Other XR hip RT min 2V(w/wo pelvis)*06/20/22 [facility] Hospital[facility] Other Complete Blood Count with Auto Diffon 10-17-2021 Basophils (Bld) [#/Vol]0.04 10*3/uLNormal0.00-0.20[facility] SpecialistComment on above:Performed By: #### TSH reflex FT4, CBCAD, CMP, FT4, LIPD #### [facility] [address] [place], [place] [id number]/100 WBC (Bld)0.6 %NormalNorthern Stonecrest Medical Center SpecialistComment on above:Performed By: #### TSH reflex FT4, CBCAD, CMP, FT4, LIPD #### [facility] [address], [place] [id number] (Bld) [#/Vol]0.21 10*3/uLNormal0.02-0.50NoGenesis Hospital SpecialistComment on above:Performed By: #### TSH reflex FT4, CBCAD, CMP, FT4, LIPD #### [facility] [address], [place] [id number]/100 WBC (Bld)3.3 %NormalGerman Hospital SpecialistComment on above:Performed By: #### TSH reflex FT4, CBCAD, CMP, FT4, LIPD #### [facility] [address], [place] [id number] distribution width (RBC) [Ratio]13.9 %Normal 11.0-15.0[facility] SpecialistComment on above:Performed By: #### TSH reflex FT4, CBCAD, CMP, FT4, LIPD #### [facility] [address], [place] [id number] (Bld) [Volume fraction]40.3 %Cxuzrz49.0-47.[address] [facility] HospitalComment on above:Performed By: #### TSH reflex FT4, CBCAD, CMP, FT4, LIPD #### [facility] [address], [place] [id number] (Bld) [Mass/Vol]12.9 g/zFAwagqe23.6-15.5[facility] SpecialistComment on above:Performed By: #### TSH reflex FT4, CBCAD, CMP, FT4, LIPD #### [facility] [address], [place] [id number] (Bld) [#/Vol]1.9 10*3/uLNormal0.9-3.9NoGenesis Hospital SpecialistComment on above:Performed By: #### TSH reflex FT4, CBCAD, CMP, FT4, LIPD #### [facility] [address], [place] [id number]/100 WBC (Bld)30.0 %NormalNoGenesis Hospital SpecialistComment on above:Performed By: #### TSH reflex FT4, CBCAD, CMP, FT4, LIPD #### [facility] [address], [place] [id number] (RBC) [Entitic mass]26.7 pgLow27.0-33.0NoGenesis Hospital SpecialistComment on above:Performed By: #### TSH reflex FT4, CBCAD, CMP, FT4, LIPD #### [facility] [address], [place] [id number] (RBC) [Mass/Vol]32.0 g/jYZsrvyi34.0-36.0NoGenesis Hospital SpecialistComment on above:Performed By: #### TSH reflex FT4, CBCAD, CMP, FT4, LIPD #### [facility] [address], [place] [id number] (RBC) [Entitic vol]83 lJWlrekd28-494Fzxjvwaf [place] [facility] SpecialistComment on above:Performed By: #### TSH reflex FT4, CBCAD, CMP, FT4, LIPD #### [facility] [address], [place] [id number] (Bld) [#/Vol]0.6 10*3/uLNormal0.2-0.9NoGenesis Hospital SpecialistComment on above:Performed By: #### TSH reflex FT4, CBCAD, CMP, FT4, LIPD #### [facility] [address], [place] [id number]/100 WBC (Bld)9.1 %NormalNoGenesis Hospital SpecialistComment on above:Performed By: #### TSH reflex FT4, CBCAD, CMP, FT4, LIPD #### [facility] [address], [place] [id number] (Bld) [#/Vol]3.6 10*3/uLNormal1.5-7.8NoGenesis Hospital SpecialistComment on above:Performed By: #### TSH reflex FT4, CBCAD, CMP, FT4, LIPD #### [facility] [address], [place] [id number]/100 WBC (Bld)56.7 %NormalNoGenesis Hospital SpecialistComment on above:Performed By: #### TSH reflex FT4, CBCAD, CMP, FT4, LIPD #### [facility] [address], [place] [id number] mean volume (Bld) [Entitic vol]10.40 fLNormal 7.50-12.50NoGenesis Hospital SpecialistComment on above:Performed By: #### TSH reflex FT4, CBCAD, CMP, FT4, LIPD #### [facility] [address], [place] [id number] (Bld) [#/Vol]346 10*3/qSTugsac895-973Sehtbhds [place] [facility] SpecialistComment on above:Performed By: #### TSH reflex FT4, CBCAD, CMP, FT4, LIPD #### [facility] [address], [place] [id number] (Bld) [#/Vol]4.83 10*6/uLNormal3.90-5.20No[facility] SpecialistComment on above:Performed By: #### TSH reflex FT4, CBCAD, CMP, FT4, LIPD #### [facility] [address], [place] [id number]-ME84.3 pECtxtxq84.0-50.0No[facility] Specialist Comment on above:Performed By: #### TSH reflex FT4, CBCAD, CMP, FT4, LIPD #### [facility] [address], [place] [id number] (Bld) [#/Vol]6.4 10*3/uLNormal3.8-11.0NoGen[facility] Hospital SpecialistComment on above:Performed By: #### TSH reflex FT4, CBCAD, CMP, FT4, LIPD #### [facility] [address], [place] [id number] Metabolic Panelon 64-03-2290Avfshkc [Mass/Vol] 4.6 g/dLNormal3.6-5.1[facility] SpecialistComment on above:Performed By: #### TSH reflex FT4, CBCAD, CMP, FT4, LIPD #### [facility] [address], [place] [id number]/Globulin [Mass ratio]1.9 {ratio}Normal1.0-2.5NoGen[facility] Hospital SpecialistComment on above:Performed By: #### TSH reflex FT4, CBCAD, CMP, FT4, LIPD #### [facility] [address], [place] [id number] [Catalytic activity/Vol]111 U/EGumixk49-615Myzbyqeo [place] [facility] SpecialistComment on above:Performed By: #### TSH reflex FT4, CBCAD, CMP, FT4, LIPD #### [facility] [address], [place] [id number] [Catalytic activity/Vol]19 U/LNormal6-33NoGen[facility] Hospital SpecialistComment on above:Result Comment: 05/03/2021 Female reference range changed.Performed By: #### TSH reflex FT4, CBCAD, CMP, FT4, LIPD #### [facility] [address], [place] [id number] gap [Moles/Vol]18 mmol/DIwkbms77-15Nyrdstil [place] [facility] SpecialistComment on above:Result Comment: Effective 06/08/2019 reference range changed.Performed By: #### TSH reflex FT4, CBCAD, CMP, FT4, LIPD #### [facility] [address], [place] [id number] [Catalytic activity/Vol]20 U/LNormal9-34No[facility] SpecialistComment on above:Performed By: #### TSH reflex FT4, CBCAD, CMP, FT4, LIPD #### [facility] [address], [place] [id number] [Mass/Vol]0.71 mg/dLNormal0.30-1.20[address] [facility] SpecialistComment on above:Performed By: #### TSH reflex FT4, CBCAD, CMP, FT4, LIPD #### [facility] [address], [place] [id number]/CREA20 RatioNormal6-22No[facility] Specialist Comment on above:Performed By: #### TSH reflex FT4, CBCAD, CMP, FT4, LIPD #### [facility] [address], [place] [id number] [Mass/Vol]9.5 mg/dLNormal8.6-10.2[facility] SpecialistComment on above:Performed By: #### TSH reflex FT4, CBCAD, CMP, FT4, LIPD #### [facility] [address], [place] [id number] [Moles/Vol]102 mmol/YFzuprd47-307Rnrklxno [place] [facility] SpecialistComment on above:Performed By: #### TSH reflex FT4, CBCAD, CMP, FT4, LIPD #### [facility] [address], [place] [id number] [Moles/Vol]24 mmol/QEzzjdw13-97Npjrztwk [place] [facility] SpecialistComment on above:Performed By: #### TSH reflex FT4, CBCAD, CMP, FT4, LIPD #### [facility] [address], [place] [id number] [Mass/Vol]0.8 mg/dLNormal0.6-1.4[address] [facility] SpecialistComment on above:Performed By: #### TSH reflex FT4, CBCAD, CMP, FT4, LIPD #### [facility] [address], [place] [id number] mL/min/1.90f5Mmbtpt>[address] [facility] SpecialistComment on above:Performed By: #### TSH reflex FT4, CBCAD, CMP, FT4, LIPD #### [facility] [address], [place] [id number] mL/min/1.47l1Yhdlzu>60No[facility] SpecialistComment on above:Performed By: #### TSH reflex FT4, CBCAD, CMP, FT4, LIPD #### [facility] [address], [place] [id number] (S) [Mass/Vol]2.4 g/dLNormal1.9-3.7No[facility] SpecialistComment on above:Performed By: #### TSH reflex FT4, CBCAD, CMP, FT4, LIPD #### [facility] [address], [place] [id number] [Mass/Vol]109 mg/sZFpae84-56Qlqqnaxz [place] [facility] SpecialistComment on above:Result Comment: For FASTING Glucose --- ADA reference ranges: Normal 65-99 mg/dl Prediabetes 100-125 Diabetes >/= 126Performed By: #### TSH reflex FT4, CBCAD, CMP, FT4, LIPD #### [facility] [address], [place] [id number] [Moles/Vol]4.3 mmol/LNormal3.5-5.5No[facility] SpecialistComment on above:Performed By: #### TSH reflex FT4, CBCAD, CMP, FT4, LIPD #### [facility] [address], [place] [id number] [Mass/Vol]7.0 g/dLNormal6.1-8.1[facility] SpecialistComment on above:Performed By: #### TSH reflex FT4, CBCAD, CMP, FT4, LIPD #### [facility] [address], [place] [id number] [Moles/Vol]139 mmol/WQydsox423-945Cuhgtjrv [place] [facility] SpecialistComment on above:Performed By: #### TSH reflex FT4, CBCAD, CMP, FT4, LIPD #### [facility] [address], [place] [id number] nitrogen [Mass/Vol]15 mg/dLNormal7-25No[facility] SpecialistComment on above:Performed By: #### TSH reflex FT4, CBCAD, CMP, FT4, LIPD #### [facility] [address], [place] [id number] T4on 21-34-4474Altv T4 [Mass/Vol]1.45 ng/dLNormal 0.80-1.80No[facility] SpecialistComment on above:Performed By: #### TSH reflex FT4, CBCAD, CMP, FT4, LIPD #### [facility] [address], [place] [id number] A1Con 09-24-6771PRM304.50NormalNoGenesis Hospital SpecialistComment on above:Performed By: #### A1C #### [facility] [address], [place] [id number] (Bld) [Mass fraction]6.0 %Normal4.0-6.0No[facility] SpecialistComment on above:Performed By: #### A1C #### [facility] [address], [place] [id number] Panelon 34-73-3494Haitbusxgja [Mass/Vol]193 mg/dLNormal 125-200No[facility] Hospital SpecialistComment on above:Result Comment: Low risk < 200mg/dL Borderline risk 201-239 mg/dl High risk > or equal to 240Performed By: #### TSH reflex FT4, CBCAD, CMP, FT4, LIPD #### [facility] [address], [place] [id number] in HDL [Mass/Vol]44 mg/dLNormal>40NoGen[facility] Hospital SpecialistComment on above:Result Comment: High Cardiovascular Risk HDL <40 mg/dL Low Cardiovascular Risk HDL > or equal to 60 mg/dlPerformed By: #### TSH reflex FT4, CBCAD, CMP, FT4, LIPD #### [facility] [address], [place] [id number] in LDL [Mass/Vol]126 mg/dLNormalNoGenesis Hospital SpecialistComment on above:Result Comment: LDL ATP III CLASSIFICATION LDL less than 100 mg/dl Optimal LDL 100-129 mg/dl Near or above optimal LDL 130-159 Borderline high LDL 160-189 High LDL greater than 189 mg/dl Very HighPerformed By: #### TSH reflex FT4, CBCAD, CMP, FT4, LIPD #### [facility] [address], [place] [id number] in VLDL [Mass/Vol]23 mg/dLNormalNoGenesis Hospital SpecialistComment on above:Performed By: #### TSH reflex FT4, CBCAD, CMP, FT4, LIPD #### [facility] [address], [place] [id number].total/Cholesterol in HDL [Mass ratio]4 {ratio} NormalGerman Hospital SpecialistComment on above:Performed By: #### TSH reflex FT4, CBCAD, CMP, FT4, LIPD #### [facility] [address], [place] [id number] [Mass/Vol]116 mg/pCNruqfc41-630Neyzwbvl [place] [facility] SpecialistComment on above:Result Comment: TRIG ATPIII CLASSIFICATIONS TRIG less than 150 mg/dl Normal TRIG 150-199 mg/dl Borderline High TRIG 200-500 mg/dl High TRIG greather than 500 mg/dl Very HighPerformed By: #### TSH reflex FT4, CBCAD, CMP, FT4, LIPD #### [facility] [address], [place] [id number] (with Creat)on 25-14-1773mXBG<1.2LowNorthern [facility]crest [facility] Center SpecialistComment on above:Result Comment: Unable to calculate mALB/Crea ratio, mALB is <1.2 mg/dL mALB reference range not established.Performed By: #### mALBC #### [facility] [address], [place] [id number] mg/zSJmrc83-684Cxykdjbf [place] Building Construction Teacher Comment on above:Performed By: #### mALBC #### [facility] [address] [place], [place] [id number] w/ Reflex to Free T4on 90-82-0726EH3 reflexFree I8Pznuut [facility] SpecialistComment on above:Performed By: #### TSH reflex FT4, CBCAD, CMP, FT4, LIPD #### [facility] [address], [place] [id number] uIU/mLLow0.400-4.500NortA[facility] Comment on above:Performed By: #### TSH reflex FT4, CBCAD, CMP, FT4, LIPD #### [facility] [address], [place] [id number] 04-77-8729AHTIVindyg Visit (LOORRM) VILLEDAJULIA Martell ([id number]) 1950 F Date Time Provider Department 04/11/21 [...] Meds Comments as of 09/12/2020: 07/28 08/19 [employer] Problem List As Of Date 04/11/2021 Noted [...] 10/03/2020 Encounter Status:Closed by BEST VALERA on 04/11/21[facility] [id number] Visit (LOORRM) JULIA VILLEDA ([id number]) 1950 F Date Time Provider Department 01/24/21 9:45 AM BEST VALERA During your visit today, we recorded the following information about you: Best Valera MD 01/24/2021 10:33 AM Signed Ortho Knee Follow Up Note Narrative Referring Provider: Best Valera [address] [facility] [place] [address] PCP: Nancy Jha, DO IMPRESSION/PLAN: 70 year [...] Order(s):clindamycin (CLEOCIN HCL) 30 (more content not included)...Normal [facility] [id number] Visit (MAXIMILIANO) JULIA VILLEDA ([id number]) 1950 F Date Time Provider Department 11/17/20 1:30 PM BEST VALERA During your visit today, we recorded the following information about you: Best Valera MD 11/17/2020 2:15 PM Signed Ortho Knee Follow Up Note Narrative Referring Provider: Best Valera [address] [facility] Jory Young [facility] [address] PCP: Nancy Jha, DO IMPRESSION/PLAN: 70 year [...] up 3 months No X-Rays Needed Julia Odom Cas presents today for a an intermediate post-op [...] [S43.401A] 10/09/2016 VONDA on CPAP [G47.33, Z99.89] more content not included)...Normal [facility] HospitalCNPNon [id number] ([facility]) JULIA VILLEDA ([id number]) 1950 F Date Time Provider Department 10/26/20 BEST VALERA During your visit today, we recorded the following information about you: Jailene Girard Pss 10/26/2020 8:55 AM Signed Patient calling in regards to PT orders that were discussed at 10/25 office visit Requesting orders be faxed to [facility] at [phone], attention Elkin Womack. Any question [facility] phone is [phone] Patient can be reached at [phone] with any questions. Please advise. Anshul Branch [...] 10/03/2020 Encounter Status:Closed by ANSHUL BRANCH on 10/26/20[facility] Shaw[facility] [id number] Visit (LOORRM) JULIA VILLEDA ([id number]) 1950 F Date Time Provider Department 10/25/20 10:00 AM MENDEZ COSBY During your visit today, we recorded the following information about you: Mendez Cosby PA-C 10/25/2020 10:27 AM Signed Ortho Knee Follow Up Note Narrative Referring Provider: Best Valera [address] [facility] [address] PCP: Nancy Jha, DO IMPRESSION/PLAN: 70 year [...] left 12/08/18 [Z96.65*01/20/2019 Obesit (more content not included)...NormalCorey HospitalXR KNEE 3V AP/LAT/MERCHANT RTon 29-40-7357ZE KNEE 3V AP/LAT/MERCHANT RT* * *Final Report* * * DATE OF [...] New right total knee arthroplasty without complication Glaucoma Specialist: [facility] Transcribe Date/Time: Oct 25 2020 3:56P Dictated by : FRANCE TIJERINA MD This examination was interpreted and the report reviewed and electronically signed by: FRANCE TIJERINA MD on Oct 25 2020 3:57PM EST [id number] Health St[facility] Knee AP and Lateral and Merchantson 22-61-5843QTRCBQIEAX: New right total knee arthroplasty without complication Glaucoma Specialist: [facility] Transcribe Date/Time: Oct 25 2020 3:56P Dictated by : FRANCE TIJERINA MD This examination was interpreted and the report reviewed and electronically signed by: FRANCE TIJERINA MD on Oct 25 2020 3:57PM EST DIVISION OF RADIOLOGY* * *Final Report* * * DATE OF [...] lucency. No significant joint effusion. DIVISION OF RADIOLOGYProvider, [facility] [place] - 10/25/2020 * * *Final Report* * [...] New right total knee arthroplasty without complication Glaucoma Specialist: [facility] Transcribe Date/Time: Oct 25 2020 3:56P Dictated by : FRANCE TIJERINA MD This examination was interpreted and the report reviewed and electronically signed by: FRANCE TIJERINA MD on Oct 25 2020 3:57PM [facility] HospitalRadiology Study observation (narrative)[facility] CenterXR Knee AP and Lateral and MerchantsOrdered By: Ccmaryjane Provider on [id number] ClinicCNPNon [id number] (LOORRM) JULIA VILLEDA ([id number]) 1950 F Date Time Provider Department 10/11/20 [...] Please call patient back at phone number [phone]. Mendez Cosby PA-C 10/11/2020 12:21 PM Signed [...] 10/03/2020 Encounter Status:Closed by MENDEZ COSBY on 10/11/20[facility] [id number] nRBC<0.01Normal<0.01[facility] HospitalErythrocyte distribution width (RBC) [Ratio]12.8 %Drwntn08.5-15.0[facility] HospitalHematocrit (Bld) [Volume fraction]32.4 %Low36.0-46.0[facility] HospitalHemoglobin (Bld) [Mass/Vol]10.8 g/dLLow11.5-15.5[facility] PwpurdztDGN43.6 oRHjonqz29.0-34.0[facility] HospitalMCHC (RBC) [Mass/Vol]33.3 g/pPNxzvwn81.5-36.0[facility] HospitalMCV (RBC) [Entitic vol]82.7 nPRcmbct63.0-100.0[facility] HospitalPlatelet mean volume (Bld) [Entitic vol]10.0 fLNormal9.0-12.7[facility] HospitalPlatelets (Bld) [#/Vol]286 10*3/hPKwzqzm132-366Zuve HospitalRBC ([facility]) [#/Vol]3.92 10*6/uLNormal3.90-5.20 [facility] ([facility]) [#/Vol]11.66 10*3/uLHigh3.70-11.00[facility] 01-34-6353UTDQNRX ID: [id number] Author: Olga Freedman PA-C Service: Orthopaedic Surgery Author Type: Physician Plant Production Manager Type: Discharge Summary Filed: 10/04/2020 10:35 AM Note Text: Attestation signed by Best Valera MD at 10/04/2020 1:27 PM I have personally performed face to face diagnostic evaluation on this patient. I have examined the patient and reviewed radiographic studies and agree with plan as outlined above. Best Valera MD October 04, 2020 1:27 PM Summary: S/P Right total knee arthroplasty; no [...] Dept Phone 10/25/2020 10:00 AM MENDEZ COSBY [phone] 11/15/2020 11:30 AM MORAIMA BESTMATT Macias [phone] This patient underwent major orthopedic surg (more content not included)... [facility] Centerismael [id number] PROGHNO ID: [id number] Author: Clarita Fields RN Service: Nursing Author Type: Registered Nurse Type: Nursing Progress Note Filed: 10/04/2020 12:47 PM Note Text: Nursing Progress Note Patient Name: Julia Villeda Patient Location: / Daily Note: 0900 Pt resting- rt knee [...] stable condition. This note was completed by: [facility] NTon [id number] NTHNO ID: [id number] Author: Amy Douglas, PT Service: Physical Therapy Author Type: Physical Therapist Type: Therapy (PT/OT/Speech/Resp) Filed: 10/04/2020 12:38 PM Note Text: Physical Therapy Evaluation SERVICE DATE: 10/04/2020 SERVICE TIME: 1109 to 1149 ROOM: [place] [address] Recommended Discharge Disposition: Home PT Anticipated Discharge Needs: Physical Assist at Home Physical Assist at Home for: Cleaning;Laundry;Shopping;Transportation;Meals Recommended Discharge Equipment: No equipment needs anticipated [...] Strength;Functional Mobility Impairment;Balance Impaired Treatment Interventions: Education;Joint Mobility;Strengthening;Functional Mobility Training Instructed pt to ambulate at home every hour when awake. Pt is ok for DC home today with home PT from PT standpoint, when cleared by medical/ORTHO and OT. Home Environment Patient Lives With: Spouse Assistance Available: daytime babysitter (spouse works days, hoping to do some [...] more Learning/Educational Needs: Discharge Plan;Functional Activities/Mobility;Plan of Care;Precautions;Rehabilitation Techniques and Procedures Goals for Plan of [...] Diagnosis: Reduced mobility-other Interventions Provided: Evaluation;Therapeutic Exercise (77077);Gait Training (84298) $ Evaluation-Low (49723) Billed Units: 1 unit Therapeutic Exercise (86705) Treatment Minutes: 10 $ Therapeutic Exercise (02416) Billed Units: 1 unit Pt performed in [...] holding times as listed above. Gait Training (18275) Treatment Minutes: 15 $ Gait Training (80237) Billed Units: 1 unit Kadeem (more content not included)...[facility] NTHNO ID: [id number] Author: Amber Skelton OT/L Service: Occupational Therapy Author Type: Occupational Therapist Type: Therapy (PT/OT/Speech/Resp) Filed: 10/04/2020 10:17 AM Note Text: Occupational Therapy Evaluation SERVICE DATE: 10/04/2020 SERVICE TIME: 817 to 919 ROOM: [place] [address] Recommended Discharge Disposition: Home Recommended Discharge Disposition Comments: Pt returned demonstration and verbalized understanding of education provided. Pt is cleared to go home from OT standpoint. Anticipated Discharge Needs: Physical Assist at Home Physical Assist at Home for: Cleaning;Laundry;Shopping;Transportation;Meals Recommended Discharge Equipment: No equipment needs anticipated [...] Environment Patient Lives With: Spouse Assistance Available: daytime babysitter Entry To Home: Stairs Number Of Stairs [...] (in minutes): 10 Learning/Educational Needs: Discharge Plan;Equipment;Family Education/Training;Functional Activities/Mobility;Plan of Care;Precautions;Rehabilitation Techniques and Procedures;Safety;Self Care Goals for Plan [...] symptoms and signs-other Interventions Provided: Evaluation;Therapeutic Activity (82554);Self Alf Management (67782) $ Evaluation-Low (15778) Billed Units: 1 unit Therapeutic Activity (60734) Treatment Minutes: 10 $ Therapeutic Activity (71631) Billed Units: 1 unit Self Alf Managemen (more content not included)...[facility] POSTPROC EVALon [id number] POSTPROC EVALHNO ID: [id number] Author: Akua Garcia MD Service: Anesthesiology Author Type: Anesthesiologist Type: Anesthesia Postprocedure Evaluation Filed: 10/03/2020 4:00 PM Note Text: POST ANESTHESIA EVALUATION NOTE : 1950 Procedure Summary Date: 10/03/20 Room / Location: OR / OR Anesthesia Start: 1323 Anesthesia Stop: 1555 [...] October 03, 2020 TIME: 4:00 PM CSN: [id number] Horizons Medical Center PRE-OPon [id number] PRE-OPHNO ID: [id number] Author: Eliezer Child MD Service: Anesthesiology Author [...] October 03, 2020 TIME: 1:19 PM CSN: [id number] [facility] OP NOTon [id number] OP NOTHNO ID: [id number] Author: Best Valera MD Service: Orthopaedic Surgery Author Type: Physician Type: Brief Op Note Filed: 10/03/2020 3:39 PM Note Text: TOTAL KNEE ARTHROPLASTY BRIEF OPERATIVE / PROCEDURE NOTE LOG ID: [id number] Surgery/Procedure Date: 10/03/2020 Incision/Procedure Start Time: 2:01 PM Incision Close/Procedure End Time: 3:33 PM Surgeon(s)/Proceduralist(s) and Plant Production Manager(s): Surgeon(s) and Role: * Best Valera MD - Primary Physician Plant Production Manager: Irma Vines PA-C; Mendez Cosby PA-C Procedure(s): Procedure(s) (LRB): ARTHROPLASTY REPLACE JOINT TOTAL KNEE (Right) Anesthesia: Spinal Peripheral Block Type: Saphenous/Adductor Approach: Median parapatellar Findings: OA Tourniquet: 44Min at 300 mm Hg Estimated Blood Loss: 75 mls Specimens: None Complications: None Implant: Implant Name Type Inv. Item Serial No. Developmental Behavioral Physician Lot No. LRB No. Used Action INSERT TRIATHLON 4 9MM TIBIAL BEARING CONDYLAR STABILIZE STERILE KNEE - [id number] Joint - Knee INSERT TRIATHLON 4 9MM TIBIAL BEARING CONDYLAR STABILIZE STERILE KNEE [facility] [id number] Right 1 Implanted COMPONENT TRITANIUM 35MM METAL 10MM PATELLAR ASYMMETRIC KNEE - [id number] Joint - Knee COMPONENT TRITANIUM 35MM METAL 10MM PATELLAR ASYMMETRIC KNEE [facility] [id number] Right 1 Implanted COMPONENT TRIATHLON 4 PA FEMORAL CRUCIATE RETAIN BEAD KNEE RIGHT - [id number] Joint - Knee COMPONENT TRIATHLON 4 PA FEMORAL CRUCIATE RETAIN BEAD KNEE RIGHT [facility] [id number] Right 1 Implanted BASEPLATE TRIATHALON 4 TRITANIUM TIBIAL COATED STERILE KNEE - [id number] Joint - Knee BASEPLATE TRIATHALON 4 TRITANIUM TIBIAL COATED STERILE KNEE [facility] [id number] Right 1 Implanted PIN 1/8IN FLUTE SQUARE STAINLESS STEEL 3.5IN FIXATION STERILE KNEE - [id number] Pin PIN 1/8IN FLUTE SQUARE STAINLESS STEEL 3.5IN FIXATION STERILE KNEE [facility] [id number] Right 1 Non-Implant Bearing Surface: Fixed Fixation: Cementless SSI Risk Factors: Obesity, BMI > 35 Constraint: Cruciate Retaining Other: None Pre-Op/Pre-Procedure Diagnosis: OA Post-Op/Post-Procedure Diagnosis: OA Weight Bearing Status: Full Weight Bearing SIGNATURE: Best Valera MD PATIENT NAME: Julia Villeda DATE: October 03, 2020 TIME: 3:28 [facility] CenterOPERAT[facility] NOon [id number] NOHNO ID: [id number] Author: Best Valera MD Service: Orthopaedic Surgery Author Type: Physician Type: Operative Report Filed: 10/04/2020 1:42 PM Note Text: [facility] - Operative Report JULIA VILLEDA : 1950 AGE: 70. SEX: F PATIENT TYPE: A HOSP SVC: [facility] LOCATION: [facility] ATTENDING PHYSICIAN: Best Valera MD CSN NUMBER: [id number] DATE OF SURGERY/PROCEDURE: 10/03/2020 INCISION/PROCEDURE START TIME: 1401 hours. INCISION CLOSE/PROCEDURE END TIME: 1533 hours. PREOPERATIVE DIAGNOSIS: Right knee primary localized osteoarthritis. POSTOPERATIVE DIAGNOSIS: Right knee primary localized osteoarthritis. SURGEON: Best Valera MD SLOT SHIFT MANAGER: 1. Irma Vines PA-C. No qualified resident [...] None. SPECIMENS: None. COMPLICATIONS: None apparent. IMPLANTS: [employer] (P) Triathlon cementless knee system. A size #4 [...] patella. At this p (more content not included)...[facility] THERAPY [facility] 52-22-1941[facility]AMW[facility] ID: [id number] Author: Amy Douglas, PT Service: Physical Therapy [...] Villeda DATE: October 03, 2020 TIME: 5:00 [facility] CenterPreOp/PreProc COVIDon [id number]-CoV-2 (COVID-19) RNA CAITLIN+probe Ql (Unsp spec)UPPER RESPIRATORY TRACT SWABNormal [facility] on above:Performed By: #### POCOVD ####[facility] [place], [place] [id number] [id number]-GqW-2 (COVID-19) RNA CAITLIN+probe Ql (Unsp spec)Negative for COVID19 (SARS CoV2) by RT-PCR or equivalent method.NormalNegative for COVID19 (SARS CoV2) by RT-PCR or equivalent method.[facility] on above: Result Comment: This test was developed and its performance characteristics determined by [facility] [place]. This test has been authorized by FDA under an Emergency Use Authorization (EUA). This test has been validated in accordance with the FDA's Guidance Document Policy for DiagnosticsTesting in Laboratories Certified to Perform High Complexity Testing under CLIA prior to Emergency use Authorization for Coronavirus Disease 2019 during the Public Health Emergency issued on August 01, 2019. Test performed by [facility], [facility] [place], [address], [place] [address].Performed By: #### POCOVD ####[facility] [place], [place] [phone] 39-02-9036YRDROgwicuojs (ORAVON) JULIA VILLEDA ([id number]) 1950 F Date Time Provider Department 09/22/20 BEST VALERA During your visit today, we recorded the following information about you: Ricardo Kim 09/22/2020 10:56 AM Signed Patient returning call to providers office. Patient can be reached at the below number. Phone number to be reached at is [phone] Ok to leave a detailed message? Yes [...] Encounter Status:Closed by ANSHUL BRANCH MA on 09/22/20NormalCSumma Health 85-26-6921qVXU Coag (Bld) [Time]30.5 vJcoafu98.0-32.4CAv[facility] on above:Result Comment: Unfractionated Heparin Therapeutic Ranges: Standard Heparin Nomogram: 53 to 78 seconds (anti-Xa level of 0.3 to 0.7 U/ml) Low Dose/ACS Nomogram: 49 to 67 seconds (anti-Xa level of 0.2 to 0.5 U/ml) Stroke Treatment Nomogram: 49 to 67 seconds (anti-Xa level of 0.2 to 0.5 U/ml) Note: The APTT therapeutic range has been determined for the current lot of laboratory APTT reagentin use throughout the [facility]. Performed By: #### PTT, BMP, PT, CBCDIF ####[place] [address] [place], [place] [phone] Metabolic Panlon 09-12-2020 Anion gap [Moles/Vol]11 mmol/LNormal9-18[facility] on above:Performed By: #### PTT, BMP, PT, CBCDIF ####[address] [phone] [Mass/Vol] 9.8 mg/dLNormal8.5-10.2CA[facility] on above:Performed By: #### PTT, BMP, PT, CBCDIF ####[address] [phone] [Moles/Vol]101 mmol/GFkucuh78-084 [facility] on above:Performed By: #### PTT, BMP, PT, CBCDIF ####[facility] [address], [place] [phone] [Moles/Vol]27 mmol/MAgxfyy37-23NhqhhmuttCorey Hospital Comment on above:Performed By: #### PTT, BMP, PT, CBCDIF ####[place] [address], [place] [phone] [Mass/Vol]0.73 mg/dLNormal0.58-0.96[facility] on above: Performed By: #### PTT, BMP, PT, CBCDIF ####[place] [address], [place] [phone]-Ywnooot Amer.>60NormalCAvita Health System [facility] on above:Performed By: #### PTT, BMP, PT, CBCDIF ####[address] [phone]-Mar Other Races>60NormalCAvita Health System Galion Hospital on above:Result Comment: eGFR (Estimated GFR) Units of measure: [...] the eGFR may not accurately reflect actual GFR.Performed By: #### PTT, BMP, PT, CBCDIF ####[place] [address] [place], [place] [phone] [Mass/Vol]93 mg/qZMgiyfb56-25GppmalmnnCorey Hospital Comment on above:Result Comment: The [place] Diabetes Association (ADA) provides guidance for cutoff [...] Standards of Medical Care in Diabetes 2016, [place] Diabetes Association. Diabetes Care. 2016.39(Suppl 1).Performed By: #### PTT, BMP, PT, CBCDIF ####[facility] [place], [place] [phone] [Moles/Vol]4.2 mmol/LNormal3.7-5.1CA[facility] on above:Performed By: #### PTT, BMP, PT, CBCDIF ####[place] [address], [place] [phone] [Moles/Vol]139 mmol/JDcgiui040-417IwqgytvetWilson Memorial Hospital on above: Performed By: #### PTT, BMP, PT, CBCDIF ####[facility], [place] [phone] nitrogen [Mass/Vol]15 mg/dL Normal7-21[facility] on above:Performed By: #### PTT, BMP, PT, CBCDIF ####[facility], [place] [phone] and Differentialon 77-79-6008Swe Baso0.04 k/uLNormal<0.11 [facility] on above:Performed By: #### PTT, BMP, PT, CBCDIF ####[facility] [phone] Mono0.61 k/uLNormal<0.87[facility] on above:Performed By: #### PTT, BMP, PT, CBCDIF ####[place] [address] [phone] Neut3.86 k/uL Normal1.45-7.50[facility] on above:Performed By: #### PTT, BMP, PT, CBCDIF ####[place] [address] [phone] nRBC<0.01Normal<0.01[facility] Comment on above:Performed By: #### PTT, BMP, PT, CBCDIF ####[place] [address] [phone]/100 WBC (Bld)0.6 %NormalWilson Memorial Hospital on above:Performed By: #### PTT, BMP, PT, CBCDIF ####[place] [address] [phone] DiffNormalCAvita Health System [facility] on above:Performed By: #### PTT, BMP, PT, CBCDIF ####[place] [address] [phone] (Bld) [#/Vol]0.43 10*3/uLNormal<0.46[facility] on above: Performed By: #### PTT, BMP, PT, CBCDIF ####[place] [address] [phone]/100 WBC (Bld)6.7 %Normal [facility] on above:Performed By: #### PTT, BMP, PT, CBCDIF ####[place] [address] [place] [phone] distribution width (RBC) [Ratio]13.0 %Normal 11.5-15.0[facility] on above:Performed By: #### PTT, BMP, PT, CBCDIF ####[place] [address] [place], [place] [phone] (Bld) [Volume fraction]39.5 %Alkerm49.0-46.0 [facility] on above:Performed By: #### PTT, BMP, PT, CBCDIF ####[place] [address] [phone] (Bld) [Mass/Vol]12.4 g/eXDyqzra35.5-15.5CAv[facility] on above:Performed By: #### PTT, BMP, PT, CBCDIF ####[place] [address] [phone] (Bld) [#/Vol]1.48 10*3/uLNormal1.00-4.00[facility] on above:Performed By: #### PTT, BMP, PT, CBCDIF ####[place] [address] [place], [place] [phone]/100 WBC (Bld)23.0 %NormalHocking Valley Community Hospital on above:Performed By: #### PTT, BMP, PT, CBCDIF ####[place] [address] [phone] pGNormal 26.0-34.0[facility] on above:Performed By: #### PTT, BMP, PT, CBCDIF ####[place] [address] [phone] (RBC) [Mass/Vol]31.4 g/rXOgkocj14.5-36.0[facility] on above:Performed By: #### PTT, BMP, PT, CBCDIF ####[place] [address] [phone] (RBC) [Entitic vol]85.9 oSFewpwf14.0-100.0[facility] on above: Performed By: #### PTT, BMP, PT, CBCDIF ####[place] [address] [phone]/100 WBC (Bld)9.5 %Normal [facility] on above:Performed By: #### PTT, BMP, PT, CBCDIF ####[place] [address] [place] [phone]/100 WBC (Bld)60.2 %NormalHocking Valley Community Hospital on above:Performed By: #### PTT, BMP, PT, CBCDIF ####[place] [address] [phone] /100 WBC Rzbdkv2SdptbfaptWilson Memorial Hospital on above:Performed By: #### PTT, BMP, PT, CBCDIF ####[place] [address] [place] [phone] mean volume (Bld) [Entitic vol]10.3 fLNormal9.0-12.7 [facility] on above:Performed By: #### PTT, BMP, PT, CBCDIF ####[place] [address] [phone] (Bld) [#/Vol]282 10*3/dKMdcvpe145-330IgnuloldqWilson Memorial Hospital on above:Performed By: #### PTT, BMP, PT, CBCDIF ####[place] [address] [phone] (Bld) [#/Vol]4.60 10*6/uLNormal3.90-5.20[facility] Hospitalment on above: Performed By: #### PTT, BMP, PT, CBCDIF ####[facility] [address] [place], [place] [phone] (Bld) [#/Vol]6.44 10*3/uLNormal 3.70-11.00Mer[facility] Will[facility] Hospitalment on above:Performed By: #### PTT, BMP, PT, CBCDIF ####[facility] [address] [place], [place] [phone] PHYSICALon 54-83-6104YTOTLFG PHYSICALHNO ID: [id number] Author: Jailene [facility]deWess[facility]) Jud Service: ? Author Type: Nurse Practitioner Type: [...] interfering with activities which include exercise, doing route inspector, enjoying hobbies, walking and standing for prolonged [...] Cholecystectomy - TOTAL ABDOM HYSTERECTOMY 04/2014 Hysterectomy, OMNIKA - TOTAL KNEE REPLACEMENT Left 12/08/2018 FAMILY [...] LPN on 09/12/2020 at 1051. 07/28 08/19 [employer] ALLERGIES Allergen Reactions - Adhesive Tape (Milagro* [...] fevers. Neuro: No history of TIA's, stroke, PHYSICAL THERAPY COORDINATOR tumor, impaired sensorium, hemiplegia, paraplegia or quadraplegia. No neurological symptoms or problems. Respiratory: Positive for VONDA- CPAP at night No history of current cough or dyspnea, or pneumonia in the past 6 weeks Cardiovascular: Positive for: Hypertension no history of angina, CHF, DE, cardiac surgery or stents. Denies rest pain, gangrene or revascularization/amputation for PVD GI: No history of GI symptoms or problems. No history of esophageal varices, recent ascites, or ETOH greater than 2 drinks per day. : No history of dysuria, frequency or incontinence,, stones or chronic kidney disease (more content not included)...NormalCorey Hospital Protimeon 47-66-8461CI INR1.3Iynjuu2.9-1.3CLakeHealth Beachwood Medical CenterComment on above:Result Comment: Vitamin K Antagonist (VKA) Therapeutic Range: INR 2 to 3 (Target INR of 2.5) Note: For patients treated with VKA drugs, such as warfarin, the [place] [employer]icians 2012 Guideline recommends [...] STROUD, et al. Chest 2012, 141:7S-47S Nicolette SURESH, et al. [facility] 2017, 70: 252-289Performed By: #### PTT, BMP, PT, CBCDIF ####[facility] [place], [place] [phone] Sec10.6 secNormal9.7-13.0[facility] on above:Performed By: #### PTT, BMP, PT, CBCDIF ####[place] [address]CR[address] [place] [phone] and SCR (30D)on 96-46-5879XAA/RH(D)PositiveNormalAvon HospitalUrinalysis with Microscopicon 01-97-8539Jxonxraok, UrineNegativeNormalNegativeCorey Hospital Comment on above:Performed By: #### MARTHAWMIC ####[place] [address] [phone] (U)ClearNormalClearCleNewark Hospital on above:Performed By: #### SEVERIANOMIC ####[place] [address] [place] [phone] (U)Light YellowCritically abnormalYellowCleNewark Hospital on above: Performed By: #### SEVERIANOMIC ####[place] [address] [phone] COMMENTNoOhioHealth Hardin Memorial Hospital on above:Result Comment: N/APerformed By: #### UAWMIC ####[place] [address]CR[address] [place] [phone] cells LM Ql (Urine sed)SEE COMMENTNoOhioHealth Hardin Memorial Hospital on above:Result Comment: Few Squamous Epithelial CellsPerformed By: #### UAWMIC ####[place] [address]CR[address] [phone] Ql (U) NegativeNormalNegativeCleNewark Hospital on above:Performed By: #### UAWMIC ####[place] [address] [place] [phone]/Blood,UrNegativeNormalNegativeWilson Memorial Hospital on above:Performed By: #### UAWMIC ####[place] [address] [place] [phone] Ql (U) NegativeNormalNegativeWilson Memorial Hospital on above:Performed By: #### UAWMIC ####[place] [address] [phone]vmahhMfkxwmaic Clinic ClevelandComment on above:Performed By: #### UAWMIC ####[place] [address] [phone] Ql (U)NegativeNormalNegative [facility] on above:Performed By: #### UAWMIC ####[place] [address] [place] [phone] (U)7.0 [pH]Normal5.0-8.0[facility] on above: Performed By: #### UAWMIC ####[place] [address] [phone], UrineNegativeNormalNegative [facility] on above:Performed By: #### UAWMIC ####[place] [address] [place] [phone]mjfke3-5KkvdpyaomAvita Health System [facility] on above:Performed By: #### UAWMIC ####[place] [address] [phone] [address], Ur1.265Xjraip5.005-1.030[facility] on above:Performed By: #### UAWMIC ####[place] [address], [place] [phone] Nikolay CommentSEE COMMENTNormKettering Health on above:Result Comment: N/A Performed By: #### UAWMIC ####[facility] [place], [place] [phone] (U) [Mass/Vol]NegativeNormal NegativeWilson Memorial Hospital on above:Performed By: #### UAWMIC ####[facility] [place], [place] [phone]kibow0-7WdunjrimgAvita Health System [facility] on above:Performed By: #### UAWMIC ####[place] [address] [place], [place] [phone] Cultureon 85-74-3522Onagsbaf identified Cx Nom (U)Sp. Request/Comment: - Specimen received in preservative Culture Result - 10,000 - <50,000 CFU/ml Normal urogenital floraNoOhioHealth Hardin Memorial Hospital on above:Performed By: #### URCUL ####[facility] [place], [place] [phone] Knee - right 4 Viewson 60-90-5125LDBZRSSKEN: Right knee osteoarthritis without significant change since 10/21/2019. No acute osseous findings. Glaucoma Specialist: H[facility]ILTON Transcribe Date/Time: Jul 12 2020 12:38P Dictated by : DINORAH MANCILLA MD This examination was interpreted and the report reviewed and electronically signed by: DINORAH MANCILLA MD on Jul 12 2020 12:41PM [facility] DIVISION OF RADIOLOGY* * *Final Report* * * DATE OF [...] effusion. No other significant abnormality. DIVISION OF RADIOLOGYProvider, [facility] [place] - 07/12/2020 * * *Final Report* * [...] change since 10/21/2019. No acute osseous findings. Glaucoma Specialist: [facility] Transcribe Date/Time: Jul 12 2020 12:38P Dictated by : DINORAH MANCILLA MD This examination was interpreted and the report reviewed and electronically signed by: DINORAH MANCILLA MD on Jul 12 2020 12:41PM EST [facility] CenterRadiology Study observation (narrative)[facility] CenterXR Knee - right 4 ViewsOrdered By: [facility] Provider on 17-28-7621Rlrzihdhc Clinic Vital Signs Date TimeVital SignValuePerforming IeauotbiqLqptyrsg40-55-1734 10:42-0400Body lyupfg457.5 cmGegianna Tatum MD Work Phone: [facility]07-18-2025 10:42-0400 Body mass index (BMI) [Ratio]37.5 kg/l2QqaumfMary Alice Tatum MD Work Phone: [phone] [place], [place] 5304907-18-2025 10:42-0400 Body wfffaj876.22 kgMary Alice Tatum MD Work Phone: [phone] [place], [place] 5304907-18-2025 10:42-0400 Diastolic blood jqzrllur14 mm[Hg]Mary Alice Tatum MD Work Phone: 1(887)828-[address] [place], [place] 5304907-18-2025 10:42-0400 Heart rate70 /minMary Alice Tatum MD Work Phone: 1(301)514-[address] [place], [place] 5304907-18-2025 10:42-0400 Systolic blood stevbzpg832 mm[Hg]Mary Alice Tatum MD Work Phone: 1(644)[address]03-31-2025 10:15-0400 Body celqie373.45 cmMatthew Petznick DO Work Phone: 1(665)[address] [place], [place] 3495603-31-2025 10:15-0400 Body mass index (BMI) [Ratio]37.6 kg/d8Mlqmtva Petznick DO Work Phone: 1(877)[address] [place], [place] 3495603-31-2025 10:15-0400 Body .67 kgMatthew Petznick DO Work Phone: 1(622)[address] [place], [place] 3495603-31-2025 10:15-0400 Diastolic blood gukwhwby18 mm[Hg]Nancy Hansonick DO Work Phone: 1(370)[address] [place], [place] 3495603-31-2025 10:15-0400 Heart rate83 /minMatthew Petznick DO Work Phone: 1(306)[address] [place], [place] 3495603-31-2025 10:15-0400 SaO2% (BldA) [Mass fraction]97 %Nancy Petznick DO Work Phone: 1(867)[address] [place], [place] 3495603-31-2025 10:15-0400 Systolic blood yrjntztc167 mm[Hg]Nancy Jha DO Work Phone: [facility]03-28-2025 13:51-0400 Body ychtfr083.9 cmAearnestine Hansonick DO Work Phone: 1(153)758-[address] [place], [place] [address]Ihfyfcnyav92-56-3610 13:51-0400Body mass index (BMI) [Ratio]38.79 kg/j6Uwmxsvw Petznick DO Work Phone: 6(534)402-[address] [place], [place] [address]Kyujxvvjtq76-17-9008 13:51-0400Body temperature 97.7 [degF]Radha Petznick DO Work Phone: 1(215)526-[address] [place], [place] [address]Ajqcjlqhna72-40-4994 13:51-0400Body zypmto535.68 kgAllkavya Petznick DO Work Phone: 1(484)[facility] [place], [place] [address]Gqdbbyjjnv84-17-6961 13:51-0400Diastolic blood ztkjablr92 mm[Hg]Radha Petznick DO Work Phone: 3(565)162-[address] [place], [place] [address]Ecavdoadte19-72-4051 13:51-0400Heart rate68 /min Radha Petznick DO Work Phone: 6(296)685-[address] [place], [place] [address]Pbuouowxsw33-01-6777 13:51-9416AoN9% (BldA) [Mass fraction]95 %Radha Petznick DO Work Phone: 2(585)[facility] [place], [place] [address]Lohfqvnlvr72-21-8832 13:51-0400Systolic blood xjzbisuc433 mm[Hg]Radha Petznick DO Work Phone: 0(954)086-[address] [place], [place] [address]Cztmffdukg70-14-4688 09:23-0500Body kbreug234.5 cmMary Alice Tatum MD Work Phone: [facility]01-27-2025 09:23-0500 Body mass index (BMI) [Ratio]36.73 kg/f0JethybMary Alice Tatum MD Work Phone: [facility]01-27-2025 09:23-0500 Body arftir225.96 kgMary Alice Tatum MD Work Phone: [facility]01-27-2025 09:23-0500 Diastolic blood wjwiymjd24 mm[Hg]Mary Alice Tatum MD Work Phone: 1(804)917-[address] [place], [place] 5304901-27-2025 09:23-0500 Heart rate79 /minMary Alice Tatum MD Work Phone: 1(272)388-[address] [place], [place] 5304901-27-2025 09:23-0500 Systolic blood mm[Hg]Mary Alice Tatum MD Work Phone: 1(310)[address]11-18-2024 11:29-0500 Body aqjnse147.9 cmFrank Guzman DO Work Phone: 1(799)[address]11-18-2024 11:29-0500Body mass index (BMI) [Ratio]36.88 kg/l7JcsdeklFrank Guzman DO Work Phone: 1(736)[address] [place], [place] 9990111-18-2024 11:29-0500Body hkoyhk750.23 kgFrank Guzman DO Work Phone: 1(513)[address] [place], [place] 9990111-18-2024 11:29-0500Diastolic blood tnqowivv58 mm[Hg]Frank Guzman DO Work Phone: 1(378)[address] [place], [place] 9990111-18-2024 11:29-0500Systolic blood ckqqitfx244 mm[Hg]Frank Guzman DO Work Phone: 1(358)[address] [place], [place] 9990109-23-2024 15:17-0400Body rthsfo046.5 cmMary Alice Tatum MD Work Phone: 1(045)040-[address] [place], [place] 5304909-23-2024 15:17-0400 Body mass index (BMI) [Ratio]34.72 kg/w0WwhsxwMary Alice Tatum MD Work Phone: 1(449)[address]09-23-2024 15:17-0400 Body wihyhp639.06 kgMary Alice Tatum MD Work Phone: 1(973)[address]09-23-2024 15:17-0400 Diastolic blood ovcpmcfs44 mm[Hg]Mary Alice Tatum MD Work Phone: 1(436)493-[address] [place], [place] 5304909-23-2024 15:17-0400 Heart rate62 /minMary Alice Tatum MD Work Phone: [facility]09-23-2024 15:17-0400 Systolic blood spayijdb498 mm[Hg]Mary Alice Tatum MD Work Phone: [facility]09-23-2024 10:47-0400 Body shjozj221.18 cmDO Nancy Petznick Work Phone: 1(881)[address] [place], [place] 3495609-23-2024 10:47-0400 Body mass index (BMI) [Ratio]34.4 kg/m2DO Nancy Petznick Work Phone: 1(902)[address] [place], [place] 3495609-23-2024 10:47-0400 Body tbwgfy96.79 kgDO Nancy Petznick Work Phone: 1(788)[address] [place], [place] 3495609-10-2024 13:22-0400 Body lqyntn820.1 cmMatthew Petznick DO Work Phone: 1(677)[address] [place], [place] 6902109-10-2024 13:22-0400Body mass index (BMI) [Ratio]34.92 kg/i7Dxuzejq Petznick DO Work Phone: 1(435)[facility] [place], [place] [address]Xftolksxcv66-49-3064 13:22-0400Body temperature 98.29 [degF]Nancy Petznick DO Work Phone: 1(162)[facility] [place], [place] [address]Yiqiupwvxn96-24-0307 13:22-0400Body difyao335.42 kgMatthew Petznick DO Work Phone: 1(193)[address] [place], [place] 6902109-10-2024 13:22-0400Diastolic blood ndidwdnp70 mm[Hg]Nancy Petznick DO Work Phone: 1(544)[address] [place] [address]-10-2024 13:22-0400Heart rate64 /min Nancy Petznick DO Work Phone: 1(543)[facility] [place] [address]-10-2024 13:22-6156IyX3% (BldA) [Mass fraction]98 %Nancy Petznick DO Work Phone: 1(892)[facility] [place] [address]-10-2024 13:22-0400Systolic blood ozqgytjt467 mm[Hg]Nancy Petznick DO Work Phone: 1(653)[address]09-04-2024 23:07-0400Diastolic blood mijlqfmg70 mm[Hg]DO Nancy Petznick Work Phone: 1(359)[address] [place], [place] 3495609-04-2024 23:07-0400 Heart rate71 /minDO Nancy Petznick Work Phone: 1(753)[address] [place], [place] 3495609-04-2024 23:07-0400 Respiratory rate16 /minDO Nancy Petznick Work Phone: 1(259)[address] [place], [place] 3495609-04-2024 23:07-0400 SaO2% (BldA) [Mass fraction]98 %DO Nancy Petznick Work Phone: 1(971)[address] [place], [place] 3495609-04-2024 23:07-0400 Systolic blood yatoagqi762 mm[Hg]DO Nancy Petznick Work Phone: 1(142)[address] [place], [place] 3495609-04-2024 17:39-0400 Body zkxuso109.45 cmDO Nancy Petznick Work Phone: 1(455)[address] [place], [place] 3495609-04-2024 17:39-0400 Body dpvnwdtkwny68.7 [degF]DO Nancy Petznick Work Phone: 1(725)[address] [place], [place] 3495609-04-2024 17:39-0400 Body qsyqap30.79 kgDO Nancy Petznick Work Phone: 1(319)[address] [place], [place] 3495604-29-2024 10:28-0400 Diastolic blood htgeeyjl99 mm[Hg]Mary Alice Tatum MD Work Phone: [facility]04-29-2024 10:28-0400 Systolic blood wqlcueux411 mm[Hg]Mary Alice Tatum MD Work Phone: [facility]04-29-2024 09:56-0400 Body gfxroy899.2 cmMary Alice Tatum MD Work Phone: [facility]04-29-2024 09:56-0400 Body mass index (BMI) [Ratio]37.78 kg/s1GmudwsMary Alice Tatum MD Work Phone: 1(056)170-[address] [place], [place] 5304904-29-2024 09:56-0400 Body zcmyyx392.41 kgMary Alice Tatum MD Work Phone: 1(433)[address]26 [address]04-29-2024 09:56-0400 Heart rate76 /Raiza Tatum MD Work Phone: 1(806)[address] [place], [place] 5304904-24-2024 10:49-0400 Diastolic blood bprvoqvg19 mm[Hg][address] 09-25-2023 10:49-0400Heart rate75 /minEly [address] [place] [address] 09-25-2023 10:49-0400Systolic blood mm[Hg][address]03-25-2024 11:34-0400Body llazpu671.5 cmMary Alice Tatum MD Work Phone: 1(548)[address]03-25-2024 11:34-0400 Body mass index (BMI) [Ratio]36.42 kg/p3MpfhkgMary Alice Tatum MD Work Phone: 1(233)647-[address] [place], [place] 5304903-25-2024 11:34-0400 Body uynggb232.05 kgMary Alice Tatum MD Work Phone: 1(394)321-[address] [place], [place] 5304903-25-2024 11:34-0400 Diastolic blood dcynojqp75 mm[Hg]Mary Alice Tatum MD Work Phone: 1(305)530-[address] [place], [place] 5304903-25-2024 11:34-0400 Heart rate86 /Raiza Tatum MD Work Phone: 1(559)472-[address] [place], [place] 5304903-25-2024 11:34-0400 Systolic blood ecekyifp947 mm[Hg]Mary Alice Tatum MD Work Phone: 1(147)593-[address] [place], [place] 5304903-25-2024 09:54-0400 Body onmynp716.72 cmDO Nancy Jha Work Phone: 1(419)[address] [place], [place] 3495603-25-2024 09:54-0400 Body mass index (BMI) [Ratio]35.7 kg/m2DO Nancy Petznick Work Phone: 1(911)[address] [place], [place] 3495603-25-2024 09:54-0400 Body uzhnbh970.59 kgDO Nancy Petznick Work Phone: 1(200)[address] [place], [place] 3495603-25-2024 09:54-0400 Heart rate86 /minDO Nancy Petznick Work Phone: 1(268)[address] [place], [place] 3495603-25-2024 09:54-0400 SaO2% (BldA) [Mass fraction]97 %DO Nancy Petznick Work Phone: 1(148)[address] [place], [place] 3495609-27-2023 10:15-0400 Body vqircg697.72 cmRobert [employer] Other [employer] Other 09-27-2023 10:15-0400Body mass index (BMI) [Ratio]35.7 kg/s2Fbmaem Bernardo II Other [employer] Other 09-27-2023 10:15-0400Body dpuemg753.51 kgRobert [place] Other [employer] Other 09-11-2023 15:10-0400Diastolic blood mm[Hg] DO Nancy Petznick Work Phone: 1(981)[address] [place], [place] 3495609-11-2023 15:10-0400 Heart rate59 /minDO Nancy Petznick Work Phone: 1(068)[address] [place], [place] 3495609-11-2023 15:10-0400 Respiratory rate18 /minDO Nancy Petznick Work Phone: 1(088)[address] [place], [place] 3495609-11-2023 15:10-0400 SaO2% (BldA) [Mass fraction]95 %DO Nancy Petznick Work Phone: 1(424)[address] [place], [place] 3495609-11-2023 15:10-0400 Systolic blood qwruyzys566 mm[Hg]DO Nancy Petznick Work Phone: 1(272)[address] [place], [place] 3495609-11-2023 12:19-0400 Body fqqekjwxngk45 [degF]DO Nancy Petznick Work Phone: 1(534)[address] [place], [place] 3495609-11-2023 11:34-0400 Inhaled oxygen flow rate8 L/minDO Nancy Petznick Work Phone: 1(099)[address] [place], [place] 3495609-11-2023 10:29-0400 Body .45 cmDO Nancy Petznick Work Phone: 1(074)[address] [place], [place] 3495609-11-2023 10:29-0400 Body mass index (BMI) [Ratio]36 kg/m2DO Nancy Petznick Work Phone: 1(580)[address] [place], [place] 3495609-11-2023 10:29-0400 Body xcdasl418 kgDO Nancy Petznick Work Phone: 1(144)[address] [place], [place] 3495608-02-2023 10:15-0400 Body .72 cmRobert [place] [employer] Other [employer] Other 08-02-2023 10:15-0400Body mass index (BMI) [Ratio] 35.27 kg/d9Ssnvtm Bernardo II Other [employer] Other 08-02-2023 10:15-0400Body .24 kgRobert [place] [employer] Other [employer] Other 05-17-2023 18:30-0400Diastolic blood qyacgdde72 mm[Hg] DO Nancy Petznick Work Phone: 1(228)[address] [place], [place] 3495605-17-2023 18:30-0400 Heart rate80 /minDO Nancy Petznick Work Phone: 1(411)[address] [place], [place] 3495605-17-2023 18:30-0400 Respiratory rate18 /minDO Nancy Petznick Work Phone: 1(580)[address] [place], [place] 3495605-17-2023 18:30-0400 SaO2% (BldA) [Mass fraction]97 %DO Nancy Petznick Work Phone: 1(245)[address] [place], [place] 3495605-17-2023 18:30-0400 Systolic blood iaahxhtv731 mm[Hg]DO Nancy Petznick Work Phone: 1(997)[address] [place], [place] 3495605-17-2023 16:30-0400 Diastolic blood bwwonrap69 mm[Hg]DO Nancy Petznick Work Phone: 1(070)[address] [place], [place] 3495605-17-2023 16:30-0400 Heart rate72 /minDO Nancy Petznick Work Phone: 1(874)[address] [place], [place] 3495605-17-2023 16:30-0400 Respiratory rate18 /minDO Nancy Petznick Work Phone: 1(490)[address] [place], [place] 3495605-17-2023 16:30-0400 SaO2% (BldA) [Mass fraction]97 %DO Nancy Petznick Work Phone: 1(056)[address] [place], [place] 3495605-17-2023 16:30-0400 Systolic blood mm[Hg]DO Nancy Petznick Work Phone: 1(391)[address] [place], [place] 3495605-17-2023 14:59-0400 Body .45 cmDO Nancy Petznick Work Phone: 1(916)[address] [place], [place] 3495605-17-2023 14:59-0400 Body .5 [degF]DO Nancy Petznick Work Phone: 1(163)[address] [place], [place] 3495605-17-2023 14:59-0400 Body dqgfuk889.15 kgDO Nancy Petznick Work Phone: 1(364)[address] [place], [place] 3495601-18-2023 15:30-0500 Body ejqmpf297.72 [facility] Centershamikat Bernardo II Other [employer] Other 01-18-2023 15:30-0500Body mass index (BMI) [Ratio] 35.27 kg/h2Uoyals Bernardo II Other [employer] Other 01-18-2023 15:30-0500Body wewhag232.24 kgRobert [place] II Other [employer] Other 11-18-2021 14:30-0500Body ujqgpv634.72 cmAndra Nixon Other [employer] Other 11-18-2021 14:30-0500Body mass index (BMI) [Ratio] 35.58 kg/x6Acmnr Nixon Other [employer] Other 11-18-2021 14:30-0500Body mfscydxtsar65.5 [degF]Mary Nixon Other [employer] Other 11-18-2021 14:30-0500Body .14 kgAndra Nixon Other [employer] Other 11-18-2021 14:30-0500Diastolic blood nvktenqa84 mm[Hg] Mary Nixon Other [employer] Other 11-18-2021 14:30-1757HgE2% (BldA) [Mass fraction]100 % Mary Nixon Other [employer] Other 11-18-2021 14:30-0500Systolic blood dsxpuubt441 mm[Hg] Mary Nixon Other [employer] Other Encounters Encounter DateEncounter TypeCare ProviderFacilityStart: 03-26-2025 End: 05-79-8379Gclwbisia encounterMatthew Kasandra PetClickToShop DO Work Phone: [facility] 230Start: 12-18-2024 End: 24-67-5458Chhfby outpatient visit 25 minutesMary Alice Tatum MD Work Phone: [facility] HospitalComment on above:Primary hypertension; High risk medication use; History of PSVT (paroxysmal supraventricular tachycardia); RBBB; BMI 37.0-37.9, adult; Never smoked tobaccoStart: 12-17-2024 End: 04-94-8638Zvtrayhfh encounterMatthew Kasandra Jha DO Work Phone: [facility] 230Start: 11-02-2024 End: 80-12-2112Ygbrdd Medardo Brandt MD Work Phone: [facility] OPHTStart: 11-02-2024 End: 29-54-7164Mmtndf Medardo Brandt MD Work Phone: [facility] OPHTStart: 11-02-2024 End: 07-09-6255ipvarrujfuPOYZN M ALLENNot AvailableStart: 10-30-2024 End: 50-74-6091Rypmde flowsheetDavid B Shanta PT Work Phone: [facility] PTStart: 10-30-2024 End: 13-68-5707Hpmelb flowsheetDavid B Shanta PT Work Phone: [phone] PTStart: 10-30-2024 End: 38-29-4724olvagsrcmmSggvg B Shanta PT Work Phone: [phone] NM PTComment on above:Arthritis of left ankle (Primary Dx); Dave's hussain, leftStart: 10-13-2024 End: 00-82-9467Ufidcs flowsheetDavid B Shanta PT Work Phone: [facility] PTStart: 10-13-2024 End: 14-22-4189Dfihyr flowsheetDavid B Shanta PT Work Phone: [facility] PTStart: 10-13-2024 End: 19-32-5485tehdedntpyLwqdc B Shanta PT Work Phone: [facility] PTComment on above:Arthritis of left ankle (Primary Dx); Rosalia nixon leftStart: 10-07-2024 End: 05-46-2050yofprufeewEudmk B Shanta PT Work Phone: [facility] NM PTComment on above:Arthritis of left ankle (Primary Dx); Rosalia nixon leftStart: 10-07-2024 End: 28-65-1294Fmhduj flowsheetDavid B Shanta PT Work Phone: [facility] PTStart: 10-07-2024 End: 46-21-8647Ytyona flowsheetDavid B Shanta PT Work Phone: [facility] PTStart: 09-21-2024 End: 58-26-0631Ymxgce flowsheetDavid B Shanta PT Work Phone: [facility] PTStart: 09-21-2024 End: 04-57-9110Urzjce flowsheetDavid B Shanta PT Work Phone: [facility] PTStart: 09-21-2024 End: 78-54-6978iydhwzrzhkGgunu B Shanta PT Work Phone: [facility] NM PTComment on above:Arthritis of left ankle (Primary Dx); Rosalia nixon leftStart: 09-14-2024 End: 77-11-3033Hypbvo flowsheetDavid B Shanta PT Work Phone: [facility] PTStart: 09-14-2024 End: 78-34-6625Kwaqyw flowsheetDavid B Shanta PT Work Phone: [facility] PTStart: 09-14-2024 End: 98-41-1341fdhvvarrrnQsnzf B Shanta PT Work Phone: [facility] NM PTComment on above:Arthritis of left ankle (Primary Dx); Rosalia nixon leftStart: 09-10-2024 End: 34-78-5681Vfpmfm flowsheetDavid B Shanta PT Work Phone: [facility] PTStart: 09-10-2024 End: 89-12-0706Elosoj flowsheetDavid B Shanta PT Work Phone: [phone] NM PTStart: 09-10-2024 End: 06-55-0325akqmlawnhsLVAYE B OTTNot AvailableStart: 09-03-2024 End: 42-17-3583Cyjwzx flowsheetDavid B Shanta PT Work Phone: [phone] NM PTStart: 09-03-2024 End: 93-86-7143Wkpeao flowsheetDavid B Shanta PT Work Phone: [facility] PTStart: 09-03-2024 End: 93-91-4726zclvfvixndUofuy B Shanta PT Work Phone: [phone] NM PTComment on above:Arthritis of left ankle (Primary Dx); Dave'katia nixon, leftStart: 08-31-2024 End: 45-26-9184uxlecpacunQodynas Petznick DO Work Phone: [facility] Work Phone: Start: 08-31-2024 End: 53-73-2748Cyskgpk encounter procedureMatthew Petznick DO Work Phone: [facility] Work Phone: Start: 08-28-2024 End: 99-34-2849Eblulg flowsheetAllison M Petznick DO Work Phone: [facility] 230Start: 08-28-2024 End: 17-36-5347Vkbhcw flowsheetAllison M Petznick DO Work Phone: [facility] 230Start: 08-28-2024 End: 33-54-3088Rpjqmu outpatient visit 15 minutesAllison Ilene Jha DO Work Phone: [facility] 230Comment on above:Acute non-recurrent maxillary sinusitis (Primary Dx)Start: 08-28-2024 End: 65-66-9953areapbxpliRUKOJVV Ilene HANSONLucy AvailableStart: 08-20-2024 End: 81-25-4813wapykcabyaHgvla B Shanta PT Work Phone: [facility] PTComment on above:Arthritis of left ankle (Primary Dx); Dave's antonellatte, leftStart: 08-18-2024 End: 17-77-3253tfsjafinneVOFCP B OTTNot AvailableStart: 08-14-2024 End: 91-64-1041ajigfulyaiEZCKC B OTTNot AvailableStart: 08-13-2024 End: 20-11-7169vdnpschxvwYvyfk B Shanta PT Work Phone: [facility] PTComment on above:Arthritis of left ankle (Primary Dx); Dave's antonellatte, leftStart: 08-12-2024 End: 84-60-5000hcevxmrfsdURUDH B OTTNot AvailableStart: 08-11-2024 End: 08-01-8033vbfqoidvzpDamoh B Shanta PT Work Phone: [facility] PTComment on above:Arthritis of left ankle (Primary Dx); Dave's antonellatte, leftStart: 08-07-2024 End: 21-94-3570ghxlxhuhgmBZFGO B OTTNot AvailableStart: 07-22-2024 End: 35-17-0267Feryhg follow up visit related to original Benjy Brandt MD Work Phone: [facility] NB OPHTComment on above:Postoperative care for cataract (Primary Dx)Start: 07-22-2024 End: 70-97-2414qkhnjepzzmBNHKV M ALLENNot AvailableStart: 07-22-2024 End: 97-41-0471Jayojs flowsDavid Brandt MD Work Phone: [facility] OPHTStart: 07-22-2024 End: 93-06-9818Qpqjdk Medardo Brandt MD Work Phone: [facility] OPHTStart: 07-01-2024 End: 63-22-0801nqsdkoqudsOEPMX M ALLENNot AvailableStart: 07-01-2024 End: 86-77-8886Aqsfyy follow up visit related to original Benjy Brandt MD Work Phone: [facility] NB OPHTComment on above:Postoperative care for cataract (Primary Dx)Start: 07-01-2024 End: 97-57-5855Awoypo Medardo Brandt MD Work Phone: [facility] OPHTStart: 07-01-2024 End: 03-60-8432Dsowfh Medardo Brandt MD Work Phone: [facility] NB OPHTStart: 06-29-2024 End: 59-42-6352Bndckh outpatient visit 25 minutesGegianna Tatum MD Work Phone: [facility] MontgomeryComment on above:Pre-operative clearance; Primary hypertension; History of PSVT (paroxysmal supraventricular tachycardia); BMI 36.0-36.9,adult; High risk medication use; Sleep apnea treated with continuous positive airway pressure (CPAP); Never smoked tobacco; RBBB; Bradley's diseaseStart: 06-29-2024 End: 40-66-6431Mgugoieafhxz stateMary Alice Tatum MD Work Phone: [facility]: 06-29-2024 End: 93-13-0464bntqtjnywbCKTEEMEncompass Health [facility] AmbulatoryStart: 06-29-2024 End: 03-65-6019Fbhtyndvn for other preprocedural examinationSharon [facility] AmbulatoryStart: 06-24-2024 End: 85-20-9057Clnijaterrie Brandt MD Work Phone: [facility] NB OPHTStart: 06-24-2024 End: 38-57-8277Qmrsko Medardo Brandt MD Work Phone: [facility] OPHTStart: 06-24-2024 End: 92-54-7665Eppnbu follow up visit related to original Benjy Brandt MD Work Phone: [facility] NB OPHTComment on above:Postoperative care for cataract (Primary Dx)Start: 06-24-2024 End: 94-26-9939fkrlxowoovAAWQK M ALLENNot AvailableStart: 06-18-2024 End: 99-43-9510Vftoum Medardo Brandt MD Work Phone: [facility] NB OPHTStart: 06-18-2024 End: 43-34-1624Mroflj Medardo Brandt MD Work Phone: [facility] OPHTStart: 06-18-2024 End: 80-84-0917Bokknw follow up visit related to original Benjy Brandt MD Work Phone: [facility] NB OPHTComment on above:Postoperative care for cataract (Primary Dx)Start: 06-18-2024 End: 01-55-8401uuxmdytvgkPGPXP M ALLENNot AvailableStart: 06-05-2024 End: 95-29-9850Ctgwzdh encounter procedureMatthew Petznick DO Work Phone: [facility] CenterStart: 06-05-2024 End: 43-95-2355bwstsgqvplPsesmyc PetznickFacility:[facility] Hospitaltart: 05-26-2024 End: 59-16-3748Aeymwm Medardo Brandt MD Work Phone: [facility] OPHTStart: 05-26-2024 End: 67-04-3649Voqdvm Medardo Brandt MD Work Phone: [facility] OPHTStart: 05-26-2024 End: 22-72-7997qqcamlctyhLIHER M ALLENNot AvailableStart: 05-21-2024 End: 98-63-5530Pxxhevz encounter procedureMatthew Petznick DO Work Phone: [facility] Work Phone: Start: 05-21-2024 End: 25-66-4048dorryfqfnbJortzqy PetznickFacility:[facility] Hospitaltart: 05-20-2024 End: 64-49-2847Azmdpi Medardo Brandt MD Work Phone: [facility] NB OPHTStart: 05-20-2024 End: 69-33-5592Apvebq Medardo Brandt MD Work Phone: [facility] OPHTStart: 05-20-2024 End: 73-14-1751Vampil follow up visit related to arley Brandt MD Work Phone: [facility] NB OPHTComment on above:Postoperative care for cataract (Primary Dx)Start: 05-20-2024 End: 25-40-2747yqkjvdwltoVOMVC M ALLENNot AvailableStart: 05-04-2024 End: 09-82-8472Kxxaxm flowsheetDavid B Shanta PT Work Phone: [facility] PTStart: 05-04-2024 End: 71-41-4446Zumwpf flowsheetDavid B Shanta PT Work Phone: [facility] PTStart: 05-04-2024 End: 48-63-8104mmwiqwayosYuhgt B Shatna PT Work Phone: [facility] PTComment on above:Iliotibial band syndrome, right leg (Primary Dx); Greater trochanteric bursitis of right hip; Right lumbar radiculopathy; History of total hip arthroplasty, rightStart: 04-28-2024 End: 18-17-9161wzepfcgimzPcicw B Shanta PT Work Phone: [facility] PTComment on above:Iliotibial band syndrome, right leg (Primary Dx); Greater trochanteric bursitis of right hip; Right lumbar radiculopathy; History of total hip arthroplasty, rightStart: 04-28-2024 End: 28-08-0814Skedlj flowsheetDavid B Shanta PT Work Phone: [facility] [place] PTStart: 04-28-2024 End: 56-80-1945Jfbmuv flowsheetDavid B Shanta PT Work Phone: [facility] [place] PTStart: 04-22-2024 End: 40-29-6582Rqcraq Azul Cadet Tenzin PT Work Phone: [facility] [place] PTStart: 04-22-2024 End: 20-38-9156Gtzblu Azul Cadet Payton PT Work Phone: [facility] [place] PTStart: 04-22-2024 End: 86-58-1645delsmhblvzFxitux J Payton PT Work Phone: [facility] [place] PTComment on above:Iliotibial band syndrome, right leg (Primary Dx); Greater trochanteric bursitis of right hip; Right lumbar radiculopathy; History of total hip arthroplasty, rightStart: 04-20-2024 End: 50-58-4606Fntukng encounter procedureFrank Guzman DO Work Phone: [facility] OBComment on above:Encounter for gynecological examination without abnormal finding; Encounter for Papanicolaou smear of vagina; Breast cancer screening by mammogramStart: 04-20-2024 End: 98-21-6633Lnwoqit encounter statusFrank Guzman DO Work Phone: [facility] HealthcareStart: 04-20-2024 End: 16-54-5680xtmhcneutyOABQXPG D BRUNERNot AvailableStart: 04-13-2024 End: 41-83-6022Dtlmqn flowsheetDavid B Shanta PT Work Phone: [facility] [place] PTStart: 04-13-2024 End: 95-88-2201Qsloqu flowsheetDavid B Shanta PT Work Phone: [facility] [place] PTStart: 04-13-2024 End: 77-79-1984wieqxcnchjAfstg B Shanta PT Work Phone: [facility] [place] PTComment on above:Iliotibial band syndrome, right leg (Primary Dx); Greater trochanteric bursitis of right hip; Right lumbar radiculopathy; History of total hip arthroplasty, rightStart: 04-02-2024 End: 77-12-1922ysqgdorbxmTY Matthew Petznick Work Phone: [facility] Work Phone: Start: 04-02-2024 End: 26-48-4625Dcueqrx encounter procedureDO Nancy Jha Work Phone: [facility] Work Phone: Start: 03-31-2024 End: 00-46-5443Lsipex CarolynAljackeline Valera MD Work Phone: [facility] InstituteComment on above:Pain (Primary Dx)Start: 02-24-2024 End: 49-76-4075Sseism outpatient visit 25 minutesMary Alice Tatum MD Work Phone: uh FirelandsComment on above:Primary hypertension; Bradley's disease; RBBB; Sleep apnea treated with continuous positive airway pressure (CPAP); Never smoked tobacco; BMI 34.0-34.9,adult; Angina pectoris, unstable (Multi); Shortness of breath; Medication course changedStart: 02-24-2024 End: 27-07-9699talzjsnyekZULWYDMountain Lakes Medical Center AmbulatoryStart: 02-24-2024 End: 81-81-8062oswcgjgfcxMG Matthew Petznick Work Phone: [facility] Work Phone: Start: 02-24-2024 End: 85-20-7567Fyjfcgi encounter procedureDO Nancy Jha Work Phone: [facility] Work Phone: Start: 02-11-2024 End: 37-46-9676Vkpvob outpatient visit 25 minutesMatthew Kasandra Jha DO Work Phone: noMS SWS FM 230Comment on above:SVT (supraventricular tachycardia) (CMS/HCC) (Primary Dx); Chest pain, unspecified type; Primary hypertension (CMS/HCC); Obesity (BMI 30-39.9); Gastroesophageal reflux disease, unspecified whether esophagitis presentStart: 02-11-2024 End: 05-73-8843ufbnekoypuHSGOMOA C PETZNICKNot AvailableStart: 02-05-2024 End: 16-53-1336Ulenwkdwb department patient visitDO Nancy Jha Work Phone: [facility] Work Phone: Start: 01-07-2024 End: 72-19-9492ydeixzykboJWTEBYQ C PETZNICKNot AvailableStart: 12-30-2023 End: 18-93-4737hqvjbiekqtDEUFIUMountain Lakes Medical Center AmbulatoryStart: 12-16-2023 End: 35-62-8201mqigtfnuksTFVSWKW C PETZNICKNot AvailableStart: 10-02-2023 End: 17-22-3476clzxpudxnkRQNLOSN C [facility] AmbulatoryStart: 09-30-2023 End: 06-19-2059Jdxspb outpatient visit 25 minutesMary Alice Tatum MD Work Phone: [facility] MontgomeryComment on above:History of PSVT (paroxysmal supraventricular tachycardia); Palpitations; Primary hypertension; RBBB; Bradley's disease; BMI 37.0-37.9, adult; Never smoked tobacco; High risk medication use; Medication course changed; Obstructive sleep apnea syndrome; Pre-syncopeStart: 09-30-2023 End: 74-54-6986smiiszkbafRORKXQMountain Lakes Medical Center AmbulatoryStart: 09-26-2023 End: 64-88-9787mbesmavrheUUBBVQMadison Health Start: 09-26-2023 End: 65-07-4182Rcysplsaap hospital visit by physicianCrista Nath 1[facility]Start: 09-25-2023 End: 49-70-6604Llxcmeftd Result EncounterGeneric External Data ProviderNOMS External Department UnsolicitedStart: 09-25-2023 End: 84-78-6775Hlmextnai Result EncounterGeneric External Data ProviderNOMS External Department UnsolicitedStart: 09-25-2023 End: 56-56-2722kjwrdohirqNUTNBWMadison Health Start: 09-25-2023 End: 85-33-0186Pgnzgrxjok hospital visit by Juan José Thompson [place] [facility] MichiganComment on above:History of PSVT (paroxysmal supraventricular tachycardia); Palpitations; Pre-syncope; Abnormal EKGStart: 08-26-2023 End: 59-41-8249Mihmsy consultation new/estab patient 60 Raiza Tatum MD Work Phone: [facility] on above:History of PSVT (paroxysmal supraventricular tachycardia); Palpitations; Primary hypertension; RBBB; Pre-syncope; Bradley's disease; Obstructive sleep apnea syndrome; Abnormal EKGStart: 08-26-2023 End: 95-86-4337lpyqiopcdxWRQGQGMountain Lakes Medical Center AmbulatoryStart: 08-26-2023 End: 87-88-2535fkgyezdqzfXG Nancy Jha Work Phone: [facility] Work Phone: Start: 08-26-2023 End: 94-15-0702Rpidcrw encounter procedureDO Nancy Jha Work Phone: [facility] Physician [facility] Work Phone: Start: 07-17-2023 End: 69-82-1173Iaviima encounter procedureDO Nancy Jha Work Phone: [facility]-Electrodiagnostics Work Phone: Start: 07-17-2023 End: 84-14-5297dtdplclgtvRA Matthew Petznick Work Phone: [facility] Work Phone: Start: 05-20-2023 End: 99-86-8360wghtcvqodeNT Matthew Petznick Work Phone: [facility] Work Phone: Start: 05-20-2023 End: 32-16-3841Ygvvuzg encounter procedureDO Nancy Darrelshira Work Phone: [facility]-Center for Breast Care Work Phone: Start: 91-42-5449Sgxlvn follow up visit related to original pxJennifer KearneyFPG [place] OrthopedicsStart: 05-09-2023 End: 03-99-8260dhubgyqrijOI Nancy Petznick Work Phone: [facility] [place] Other Start: 05-09-2023 End: 33-22-7141Onzdpvo encounter procedureDO Nancy Petznayan Work Phone: [facility]-XRay [place] [facility] Start: 20-90-6784Lfypyme encounter procedureDO Nancy Jha Work Phone: [facility] Physician Group-Start: 04-17-2023 End: 56-37-8959zdicwzbijyDE Nancy Petshira Work Phone: [facility] Work Phone: Start: 04-17-2023 End: 03-24-3640Thagxufgaj RecurringDO Nancy Rojoznick Work Phone: [facility] C[facility]-Physical Therapy [place] CreekStart: 03-27-2023(Post-Op) Post-OpRobert Bernardo IIFPG [place] OrthopedicsStart: 03-27-2023 End: 42-46-4638dwkjwjyjxjXG Nancy Petznick Work Phone: [facility] Work Phone: Start: 03-27-2023 End: 18-30-4770Uczaurv encounter procedureDO Nancy Petznick Work Phone: [facility]Ray [place] [facility] Start: 59-54-6292Timxmgjiop RecurringDO Nancy Petznick Work Phone: [facility]-Physical Therapy [place]Start: 02-27-2023(Post-Op) Post-OpRobert [place] IIFPG [place] OrthopedicsStart: 02-27-2023 End: 37-08-9311zpyncuapzvRdeiyd Bernardo II Other noWeimob Other Start: 07-41-6505Snalrmiyp encounterRobert [place] II FPG [place] OrthopedicsStart: 02-11-2023 End: 76-72-1465Brlhcgqfy to same day surgery centerDO Nancy Jha Work Phone: [facility] CampusStart: 02-11-2023 End: 05-89-5020hlqudubjnnLD Nancy Jha Work Phone: [facility] Work Phone: Start: 02-05-2023 End: 28-01-7920sbqkmdqcnlAmbgsr [place] II Other [employer] Other Start: 78-17-0023Pcwxqxcxj encounterRobert [place] II FPG [place] OrthopedicsStart: 02-01-2023(Prolonged) Prolonged ServicesRobert [place] IIFPG [place] OrthopedicsStart: 02-01-2023 End: 33-32-8530rtarudymfbBruokx Bernardo II Other [employer] Other Start: 67-99-5823Jekyfot encounter procedureRobert [place] IIFPG [place] OrthopedicsStart: 01-31-2023 End: 55-04-6623dueewrafgjRJ Nancy Jha Work Phone: [facility] Work Phone: Start: 01-31-2023 End: 47-22-1291Shpkwphyer RecurringDO Nancy Jha Work Phone: [facility]-Physical Therapy [place]Start: 01-29-2023 End: 53-01-6943ydiyfzvopuNH Nancy Petteaick Work Phone: [facility] Work Phone: Start: 01-29-2023 End: 49-57-8454Hodpmfw encounter procedureDO Nancy Jha Work Phone: [facility] Mby-Hjk-Sjftwpba Testing Work Phone: Start: 01-02-2023 End: 42-67-7468hfmpbdymnkNhbdet Bernardo II Other [place] Other Start: 13-41-7299Sskbwg outpatient visit 25 minutes Herman HAWK [place] OrthopedicsStart: 12-27-2022 End: 19-77-6772rbkxzccuohFN Nancy Jha Work Phone: [facility] Work Phone: Start: 12-27-2022 End: 38-03-0480Hbgqcor encounter procedureDO Nancy Jha Work Phone: [facility]-Electrodiagnostics Work Phone: Start: 12-20-2022 End: 28-91-5484udqbfzjfizGN Nancy Hansonick Work Phone: [facility] Work Phone: Start: 12-20-2022 End: 03-92-5640Ryoaenw encounter procedureDO Nancy Hansonick Work Phone: [facility] C[facility]-Lab [place] Work Phone: Start: 11-29-2022 End: 84-72-4396hxqjligezaWV Nancy Petznick Work Phone: [facility] Work Phone: Start: 11-29-2022 End: 87-96-1461Jhdqkgh encounter procedureDO Nancy Jha Work Phone: [facility]-Electrodiagnostics Work Phone: Start: 11-20-2022 End: 41-88-0449Zirnrqs encounter procedureDO Nancy Jha Work Phone: [facility]-Lab [place] Work Phone: Start: 10-17-2022 End: 68-45-2432Ftiopjotw department patient visitDO Nancy Jha Work Phone: [facility] C[facility]-Emergency Room Work Phone: Start: 09-10-2022 End: 74-86-5399daxztbfvjhOCQIN D [facility] FOUNDATIONANDERFacility:T6Slbnb: 02-59-5743Htlgkkvcb for preprocedural cardiovascular examinationPETER D [facility] Hospitaltart: 57-54-5651Qhwhxrwuv for preprocedural laboratory examinationPETER D [facility] Hospitaltart: 09-06-2022 End: 67-29-6034ifqzrljuniLZ Nancy Jha Work Phone: [facility] Work Phone: Start: 09-06-2022 End: 37-71-4842Jrwcass encounter procedureDO Nancy Jha Work Phone: [facility]-Sleep Lab Work Phone: Start: 09-05-2022 End: 58-88-6436hvpttngbbwSoybjs Bernardo ROLDAN Other [facility] [place] Other Start: 94-47-4793Tupoln outpatient visit 25 minutes Herman HAWKChoate Memorial Hospital OrthopedicsStart: 08-30-2022 End: 25-10-2588wbkheaeifoLABKX D HIGHLANDERFacility:Z7Lzhvk: 08-30-2022 End: 64-19-9554Fgkynvvap for preprocedural cardiovascular examinationPETER D HIGHLANDERFacility:C5Hgpum: 08-07-2022 End: 05-89-2968qgbaimewhqJADMG D [facility] MILWAUKEEFacility:U1Vfnph: 07-04-2022 (Procedure) ShortThomas FelterErie [facility] CenterStart: 07-04-2022 End: 00-14-0442kqutydoohhCvvrfq Felter Other [facility] [place] Other Start: 06-20-2022 End: 91-88-8313Dnfbamp encounter procedureDO Nancy Jha Work Phone: [facility] C[facility]-XRay [place] [facility] Start: 06-20-2022 End: 03-47-7979ikmokxucnwRW Nancy Darrelshira Work Phone: [facility] Work Phone: Start: 91-72-5446TFOD visit new patientRobert Bernardo IIFPG [place] [facility]opedicsStart: 05-31-2022 End: 04-75-9090yvspmwysbuWG Nancy Darrelshira Work Phone: [facility] Work Phone: Start: 05-31-2022 End: 19-93-4409Njqtpuh encounter procedureDO Nancy Darrelshira Work Phone: [facility] Ctr-Sleep Lab Work Phone: Start: 05-18-2022 End: 01-99-9421tlmnzfgiuzAS Nancy Darrelshira Work Phone: [facility] Work Phone: Start: 05-18-2022 End: 20-10-8299Dflnfnc encounter procedureDO Nancy Jha Work Phone: [facility] C[facility]-Center for Breast Care Start: 04-20-2021 End: 59-49-4376cjbvbjyxthGiard Kurtz Other [facility] [place] Other Start: 02-33-3115Pquvcv outpatient visit 15 minutes Mary KurtBlanchard Valley Health [facility] Ctr SouthStart: 03-07-2021([facility] C Vac) [facility] Covid VaccineDashaneka [facility] Coordinated Care ClinicStart: 10-25-2020 End: 65-55-1406Iemvuundgi hospital visit by physicianXr Raymond 1 Work Phone: RadiologyComment on above:Status post total knee replacement, right [Z96.651]Start: 07-12-2020 End: 33-91-9762Rccaoijzkb hospital visit by physicianXr Raymond 1 Work Phone: RadiologyComment on above:Pain [R52] Procedures DateProcedureProcedure DetailPerforming ClinicianStart: 20-71-3519Ybq routine ecg w/least 12 lds w/i&rGtae Tatum MD Work Phone: Start: 11-02-2024 End: 23-25-6566Jqfhy medical xm&eval intermediate estab ptPseudophakiRekha Brandt MD Work Phone: comment on above:Pseudophakia (Primary Dx); PCO (posterior capsular opacification), bilateralStart: 47-33-5767Unkwzxnykyz [Units/volume] in Serum or PlasmaGegianna Tatum MD Work Phone: Start: 85-02-0138Xlm routine ecg w/least 12 lds w/i&r Mary Alice Tatum MD Work Phone: Start: 05-21-2024 End: 00-60-7211HbxjeyqhoosHjerk Allen MD Work Phone: Start: 51-13-8574Jjx bmtry prtl coher intrfrmtry io lens pwr Tawanda Brandt MD Work Phone: Start: 04-13-2024 End: 04-91-4211Sqtft medical xm&eval comprhnsv estab pt 1/>Cortical age-related cataract of both eyesJaci Brandt MD Work Phone: comment on above:Cortical age-related cataract of both eyes (Primary Dx)Start: 37-63-1498Epxlz X-ray of right hipDO Nancy Jha Work Phone: Start: 32-50-3575Rac routine ecg w/least 12 lds w/i&r Mary Alice Tatum MD Work Phone: Start: 74-67-4682Oiybd X-ray of right hipDO Nancy Jha Work Phone: Start: 26-54-5446Euqek chest X-rayDO Nancy Jha Work Phone: Start: 70-43-9576ZCS 12-LEADGEETHA WADEtart: 88-65-6165EEF 12-LEADMARY ALICE Tobinrt: 58-90-7294BXFEVV UP IN CARDIOLOGYGEGIANNA OLVERAtart: 08-32-3412Njd routine ecg w/least 12 lds w/i&rGtae Tatum MD Work Phone: Start: 41-02-3805RDZUYRJ STRESS TESTGEGIANNA OLVERAtart: 15-24-0464Bi strs tst xers&/or rx cont ecg trcg onlyMary Alice Tatum MD Work Phone: Start: 17-36-2244JRQIZYC STRESS TEST EXERCISE (CARD) Generic External Data ProviderStart: 07-19-8734DVX 12-LEADMARY ALICE OLVERAtart: 74-35-4465Bwo routine ecg w/least 12 lds w/i&rGtae Tatum MD Work Phone: Start: 13-42-1392Mebzztpem mammography of bilateral breastsDO Nancy Jha Work Phone: Start: 42-74-5509Toeap X-ray of right hipDO Nancy Jha Work Phone: Start: 38-55-3459Nwhww X-ray of right hipDO Nancy Jha Work Phone: Start: 45-51-0599Xppki replacement of right hip joint DO Nancy Jha Work Phone: Start: 29-36-8896Nndlk X-ray of right hipDO Nancy Jha Work Phone: Start: 46-61-9533Ngdve X-ray of right hipDO Nancy Jha Work Phone: Start: 64-25-9634Vpyvunikwxa resistant Staphylococcus aureus cultureDO Nancy Jha Work Phone: Start: 91-67-3301Cnvsc chest X-rayDO Nancy Jha Work Phone: Start: 71-61-4305Vyzhu X-ray of right hipDO Nancy Jha Work Phone: Start: 05-18-2022 End: 05-92-0634Wbhnwmnng mammography of bilateral breastsDO Nancy Jha Work Phone: Start: 71-79-1882PzwtqorxtdiTigssz Mohan MD Work Phone: Start: 65-53-3344Yqffnghvhi examination knee 3 views Mendez Cosby PA-C Work Phone: Start: 27-16-2134Imkzhcya screenStart: 07-12-2020 Radiologic exam knee complete 4/more viewsAlfred Moraima PARRISH Work Phone: Plan of Treatment DateCare ActivityDetailAuthorStart: 84-94-3785Wbfhbcgjo for malignant neoplasm of [facility] HospitalStart: 98-09-3262WOA Vaccine (1 - 1- dose 75+ series)RSV Vaccine (1 - 1-dose 75+ series)[facility] Centertart: 12-20-2025 End: 16-28-0681Ssxlrbm encounter voigourlr57/20/2026 10:15 AM EDT Office Visit [facility] [address] [facility] [address] [place] [address] Mary Alice Tatum MD [address] [facility] [address] [place], [place] [address] [facility] MontgomeryStart: 11-18-2025 End: 32-62-1370Uizbcoqmlimye metabolic 2000 panel - Serum or PlasmaComprehensive Metabolic Panel Lab Routine Primary hypertension High risk medication use History of PSVT (paroxysmal supraventricular tachycardia) Expected: 11/18/2025 (Approximate), Expires: 02/16/2026[facility] Work Phone: Comment on above:Expected: 11/18/2025 (Approximate), Expires: 02/16/2026Start: 11-04-2025 End: 98-62-5483Tifliej encounter procedureNOMS OPHTStart: 17-81-0593Uqtkvby stimulating hormone measurementTSCornerstone Specialty Hospitals Shawnee – ShawneeStart: 52-61-3295Ieayosaft for malignant neoplasm of breastMammogramNONV Healthcare Start: 04-21-2025 End: 27-81-3850Toptlhc encounter procedureNOMS [facility] OBStart: 96-66-5621Btahuwwxv vaccinationInfluenza Vaccine (#1)[facility] HealthcareStart: 12-07-2024 End: 35-90-9497Sudbidk encounter pifoiuyaa74/07/2025 10:15 AM EDT Office Visit [facility] [address] [facility] [address] [place] [address] Mary Alice Tatum MD [address] [facility] [address] [place] [address] [facility] Hlth: 11-02-2024 End: 74-22-5899Jtmtwmx encounter ifqdijvvq39/02/2025 10:30 AM EDT Office Visit [facility] OPHT [address] [place] [address] Jaci Brandt MD [address] [place], [place] [address] [facility] OPHTStart: 10-30-2024 End: 87-78-4483xrqqljmhrz28/30/2025 12:45 PM EDT Treatment [facility] NM PT [address] [place] [address] Elkin Womack, PT [address] [place] [address] NOMS NM PTStart: 10-13-2024 End: 20-11-7649xewenzszcjNDFM NM PTComment on above:Arthritis of left ankle (Primary Dx); maribel VillegasStart: 10-01-2024 End: 02-49-7612omqhoxnerd57/01/2025 11:30 AM EDT Treatment [facility] NM PT [address] [place] [address] Elkin Womack, PT [address] [place] [address] NOMS NM PTStart: 09-21-2024 End: 69-71-8050lktdakfgfbKPPG NM PTComment on above:Arthritis of left ankle (Primary Dx); Rosalia nixon leftStart: 09-14-2024 End: 59-08-1121mhrbpoflvu74/14/2025 10:00 AM EDT Treatment [facility] NM PT [address] [place] [address] Elkin Womack, PT [address] [place] [address] Arthritis of left ankle (Primary Dx); Rosalia shawndanniana leftNOMS NM PTComment on above:Arthritis of left ankle (Primary Dx); Rosalia nixon leftStart: 09-10-2024 End: 69-55-6762xiinbdhnteNOKS NM PTComment on above:Arthritis of left ankle (Primary Dx); Rosalia nixon leftStart: 09-03-2024 End: 92-30-4359dqrjtzycguORUM NM PTComment on above:Arthritis of left ankle (Primary Dx); Rosalia shawndanniana leftStart: 08-28-2024 End: 97-33-0819Jnkwipr encounter /28/2025 1:45 PM EDT Office Visit [facility] SWS [address] [place] [phone] DarrelRadha alvarez, DO [address] [place] [address] ArrivedNOMS SWS FM 230Comment on above:ArrivedStart: 08-27-2024 End: 49-34-6182daixkxckqk13/27/2025 10:45 AM EDT Treatment [facility] NM PT [address] [place] [address] Elkin Womack, PT [address] [place] [address] NOMS NM PTStart: 08-20-2024 End: 49-18-9356xfotvrltrb04/20/2025 10:45 AM EDT Treatment [facility] NM PT [address] [place] [address] Elkin Womack, PT [address] [place] [address] NOMS NM PTStart: 08-18-2024 End: 54-33-4449ckgftavvhs45/18/2025 10:45 AM EDT Treatment [facility] NM PT [address] [place] [address] Elkin Womack, PT [address] [place] [address] NOMS NM PTStart: 08-13-2024 End: 23-22-0054egdidqkxtq28/13/2025 10:45 AM EDT Treatment [facility] NM PT [address] [place] [address] Elkin Womack, PT [address] [place] [address] NOMS NM PTStart: 08-10-2024 COVID-19 Vaccine ( season)COVID-19 Vaccine ( season) [facility]Start: 07-22-2024 End: 21-43-5775Apthtbt encounter procedureNOMS NB OPHTComment on above:Arrived Start: 06-29-2024 End: 58-84-9349Clksbhy encounter mqlgkqlug95/27/2025 9:30 AM EST Office Visit [facility] [address] [facility] [address] [place] [address] Mary Alice Tatum MD [address] [facility] [address] [place] [address] [facility]: 06-24-2024 End: 41-77-2567Xxkxglb encounter procedureNOMS NB OPHTComment on above:Arrived Start: 06-18-2024 End: 26-79-1249Rykklwy encounter hpngjshje86/16/2025 10:30 AM EST Office Visit [facility] NB OPHT [address] [place] [address] Jaci Brandt MD [address] [place], [place] [address] ArrivedNOMS NB OPHTComment on above:ArrivedStart: 05-26-2024 End: 31-21-1448Qzxcgip encounter jokoeppjw81/24/2024 9:30 AM EST Office Visit [facility] NB OPHT [address] [place] [address] Jaci Brandt MD [address] [place] [address] ArrivedNOMS NB OPHTComment on above:ArrivedStart: 05-21-2024 End: 36-42-0277GJP Breast - bilateral screeningBilateral screening mammogram with tomosynthesis Imaging Routine Breast cancer screening by mammogram Expected: 05/21/2024, Expires: 06/20/2025NOMS HealthcareComment on above: Expected: 05/21/2024, Expires: 06/20/2025Start: 05-20-2024 End: 19-63-7425Nblhlic encounter procedureNOMS NB OPHTComment on above:Arrived Start: 05-14-2024 End: 78-10-0010zborfyfrka09/12/2024 10:30 AM EST Treatment [facility] NM PT [address] [place] [address] Elkin Womack, PT [address] [place] [address] NOMS NM PTStart: 05-04-2024 End: 90-95-6593fyhdmhihohUPRR NM PTComment on above:Iliotibial band syndrome, right leg (Primary Dx); Greater trochanteric bursitis of right hip; Right lumbar radiculopathy; History of total hip arthroplasty, rightStart: 04-28-2024 End: 52-26-2576kawzckjbwu38/26/2024 2:30 PM EST Treatment N[facility] NM PT [address] [place] [address] Elkin Womack, PT [address] [place] [address] NOMS NM PTStart: 04-22-2024 End: 52-98-9906brhgtxcxtaYVJM NM PTComment on above:Iliotibial band syndrome, right leg (Primary Dx); Greater trochanteric bursitis of right hip; Right lumbar radiculopathy; History of total hip arthroplasty, rightStart: 92-05-1331Cqfpme Adult Physical Yearly Adult PhysicalPremier HealthStart: 04-20-2024 End: 18-61-7682Hvnfnbb encounter pqwohcesx65/18/2024 11:00 AM EST Office Visit [facility] [place] OB [address] [place] [address] Frank Guzman DO [address] [place] [address] NOMKatia COLE OBStart: 04-17-2024 End: 59-36-9333Zvegolc encounter procedureRadiologyComment on above:Pain [R52]RT KNEE PAINStart: 04-13-2024 End: 11-50-9471Hpmhlpq encounter fwofomvnp61/11/2024 3:00 PM EST Office Visit [facility] NB OPHT [address] [place] [address] Jaci Brandt MD [address] [place] [address] NOMS OPHTStart: 04-13-2024 End: 73-02-5592vigzggssqj69/11/2024 9:00 AM EST Evaluation [facility] NM PT [address] [place] [address] Elkin Womack, PT [address] [place] [address] Iliotibial band syndrome, right leg (Primary Dx); Greater trochanteric bursitis of right hip; Right lumbar radiculopathy; History of total hip arthroplasty, rightNOMS NM PTComment on above:Iliotibial band syndrome, right leg (Primary Dx); Greater trochanteric bursitis of right hip; Right lumbar radiculopathy; History of total hip arthroplasty, rightStart: 19-23-3655Kchcr X-ray of right hipXR hip RT min 2V(w/wo pelvis)*[facility] CenterStart: 66-88-8539OT Hip - right 2 ViewsSelect Medical Specialty [facility], [facility] CenterStart: 03-31-2024 End: 06-52-8712Edqvpmc encounter voihhqukb07/29/2024 1:00 PM EDT Office Visit [facility] NB OPHT [address] [place] [address] Jaci Brandt MD [address] [place] [address] NOMS OPHTStart: 29-41-5680Skruu X-ray of right hipXR hip RT min 2V(w/wo pelvis)*[facility]: 79-18-0623YO Hip - right 2 ViewsGalion Hospitaltart: 66-43-4813Azfjz-19 Vaccine ( season)Covid-19 Vaccine ( season)[facility]art: 21-33-9484Niaiyhkmh vaccinationInfluenza Vaccine (#1)[facility] Cent[facility]art: 12-30-2023 End: 21-03-1716Qsqthjh encounter haqtsuhjf94/29/2024 9:30 AM EDT Office Visit [address] [place] [address] Mary Alice Tatum MD [address] [facility] [address] [place], [place] [address] [facility]: 10-02-2023 End: 10-32-0139EXW 12 [facility] Service Area Work Phone: Comment on above:Expected: 10/02/2023 (Approximate), Expires: 09/29/2024Start: 09-30-2023 End: 72-31-0472Goetizk encounter tvcfdyxlq82/29/2024 9:45 AM EDT Office Visit [address] [place] [address] Mary Alice Tatum MD [address] [facility] [address] [place] [address] [facility]: 09-26-2023 End: 04-70-6651Wahzztk encounter procedure [facility]: 09-26-2023 Subsequent hospital visit by woqjcxnll53/25/2024 11:30 AM EDT Hospital Encounter [address] [place] [address] [place] [address] [facility]: [facility]25[facility]23 End: 75-03-0152Elgwrbq encounter procedure [facility]: 09-13-2023 Diabetes ScreeningDiabetes ScreeningFulton County Health Centertart: 08-26-2023 End: 71-73-3976GJ Heart Perfusion W stress and W radionuclide IVNuclear Stress Test Cardiac Nuclear Medicine Routine History of PSVT (paroxysmal supraventricular tachycardia) Palpitations Pre-syncope Abnormal EKG Expected: 08/26/2023 (Approximate), Expires: 08/25/2025[facility] Service [facility] Work Phone: Comment on above:Expected: 08/26/2023 (Approximate), Expires: 08/25/2025Start: 03-67-7431RDQWJ-19 Vaccine ()COVID- 19 Vaccine ()[facility]: 00-97-4312EMAFS-19 Vaccine ()COVID-19 Vaccine ()[facility]: 00-61-5585Iuycjjo Directive DiscussionAdvance Directive DiscussionFulton County Health Centertart: 05-94-3825Qapdvvcpn for malignant neoplasm of breastMammogramUnBarnesville Hospital Start: 15-21-0723NrzbevcbcGalion Hospitaltart: 26-01-3298TpqqorkkzGalion Hospitaltart: 90-93-5320Dayybwzg therapy procedureGalion Hospitaltart: 65-48-5755YxrivbfhlGalion Hospitaltart: 99-69-6513AGAE CultureMRSA CultureGalion Hospitaltart: 80-38-8381LaocubxhyGalion Hospitaltart: 85-29-8735QBbM/Tdap/Td Vaccines (1 - Tdap)DTaP/Tdap/Td Vaccines (1 - Tdap)[facility]: 06-01-9301Trhps microalbumin profileDTaP,Tdap,Td Vaccine (1 - Tdap)[facility]: 16-12-6705Nstkkgwqo for osteoporosisBone Density ScreeningFulton County Health Centertart: 27-40-4987Twikmnfq Vaccine (2 of 3)Shingrix Vaccine (2 of 3)[facility]: 59-71-3467IAJ High Risk: (Elderly (60+) or Population) (1 - Risk 60-74 years 1-dose series)RSV High Risk: (Elderly (60+) or Population) (1 - Risk 60-74 years 1-dose series) [facility]: 25-12-4399CQE patients and/or patients aged 60+ years (1 - 1-dose 60+ series)RSV patients and/or patients aged 60+ years (1 - 1-dose 60+ series)[facility] Start: 22-45-3452Dltzcu Vaccines (1 of 2)Zoster Vaccines (1 of 2)[facility]: 96-75-5193Ienvp panelLipid ScreeningFulton County Health Centertart: 49-34-7326Odohhufqa for malignant neoplasm of colonUniversity Hospitals Portage Medical Center Start: 84-56-4994Vycmohgod for malignant neoplasm of breastMammogram Screening [facility]: 40-77-2240KVcH/Tdap/Td Vaccines (1 - Tdap)DTaP/Tdap/Td Vaccines (1 - Tdap)[facility]: 1969 Pneumococcal vaccinationPneumococcal Vaccine (1 of 2 - PCV)[facility]: 93-51-9113Tuioif PCP Team Chronic Disease VisitAnnual PCP Team Chronic Disease VisitFulton County Health Centertart: 23-92-6599Untwbhq Screening Anxiety ScreeningFulton County Health Centertart: 90-10-4985ZY Controlled (<130/80)BP Controlled (<130/80)[facility]: 66-90-5416Awdhzhsikf Screening Depression ScreeningFulton County Health Centertart: 68-03-2390Zrjdpnpv mellitus screening Diabetes ScreeningParkview Health: 04-11-5165Tvipbpjji C screeningHepatitis C ScreeningParkview Health: 1950 Lipid panelLipid PanelUnJoint Township District Memorial Hospital: 1950 Screening for malignant neoplasm of colonUnJoint Township District Memorial Hospital: 33-54-9206Ksrqhhq stimulating hormone measurementTS LevelUnJoint Township District Memorial Hospital: 14-84-2875Fhsyux Adult PhysicalYearly Adult Physical Premier HealthCotinine [Mass/volume] in Serum or Plasma [facility] CenterIGP,rfxAptima HPV all,16/18,45IGP,rfxAptima HPV all,16/18,45 Pathology and Cytology Routine Encounter for Papanicolaou smear of vagina Ordered: 04/20/2024[facility] Work Phone: comment on above:Ordered: 04/20/2024Nicotine [Mass/volume] in Serum or PlasmaLima City Hospital End: 99-36-3219FZ Heart Perfusion W stress and W radionuclide [facility] Service Area Work Phone: Comment on above:Once for 1 Occurrences starting 09/25/2023 until 4Patient EducationSelect Medical Special[facility] Work Phone: Patient referralSelect Medical Specialty [facility] Work Phone: End: 24-25-3330IC Knee - right 4 ViewsXR KNEE GENERAL 4V AP BOTH/PA BOTH/LAT/MERC RIGHT Radiology Routine Pain 1 Occurrences starting 03/31/2024 until [facility] Work Phone: Comment on above:1 Occurrences starting 03/31/2024 until 04/30/2025 Immunizations Immunization DateImmunizationNotesCare BafzjwezXmtlsgoc60-28-3073Lkpjcp COVID-19 vaccine, 12 years and older, (30mcg/0.3mL) (Comirnaty)Mary Alice Tatum MD Work Phone: [facility]09-10-2024Seasonal, trivalent, recombinant, injectable influenza vaccine, preservative freeDfraciscod Shanta PT Work Phone: NONort[facility] NetworkZdbdkmunek04-37-3114rvgrzgear virus vaccine, unspecified formulationMatthew Petznick DO Work Phone: noNortheast [facility] Health NetworkJnmnbgqkvt82-75-4824vryuyypva, seasonal, injectableGegianna Tatum MD Work Phone: [facility] Work Phone: [phone]tv COVID-19 vaccine, 12 years and older, (30mcg/0.3mL) (Comirnaty)Mary Alice Tatum MD Work Phone: [facility] Work Phone: [phone], quadrivalent, recombinant, injectable influenza vaccine, preservative freeMatthew Petznick DO Work Phone: NON[facility] NetworkEnhxtttrfo93-47-3764besikphac virus vaccine, unspecified formulationMatthew Petznick DO Work Phone: NON[facility] NetworkNhiccfymui54-17-3774tlptfn vaccine recombinant Nancy Petznick DO Work Phone: NON[facility] NetworkZgfjljqhsb61-13-3740Xiuenbvyg, injectable, Madin Ross Canine Kidney, preservative free, quadrivalentMatthew Petznick DO Work Phone: NON[facility] NetworkKymksvkkpw03-58-2636JWGJT-11 mRNA Bivalent Booster (Pfizer)DO Nancy Hansonick Work Phone: [facility]10-06-2022Moderna Bivalent Booster VaccinationMatthew Petznick DO Work Phone: NON[facility] NetworkYnxsrgpyhx16-56-2897ykdwvm vaccine recombinant Nancy Hansonick DO Work Phone: NON[facility] NetworkNzalbhnfue33-52-1636EKNKG-64 mRNA, Comirnaty (Pfizer)DO Nancy Jha Work Phone: [facility]10-28-2021influenza, injectable, quadrivalent, contains preservativeMatthew Petznick DO Work Phone: NON[facility] NetworkMqphbevsui37-88-0681uahqiysim virus vaccine, unspecified formulationXr 1 Work Phone: [facility] CenterAlmuxl70-37-8026MDOYO-84 PfizerDawn Fitt Other [facility]03-19-2021COVID-19 mRNA, Comirnaty (Pfizer)DO Nancy Jha Work Phone: [facility]02-25-2021COVID-19 mRNA, Comirnaty (Pfizer)DO Nancy Jha Work Phone: [facility]09-15-2020influenza, injectable, quadrivalent, preservative freeMatthew Petznick DO Work Phone: WeimobNortheast [facility] Health NetworkNxfdddqbfg84-36-5213gfqwgrllwmrg polysaccharide vaccine, 23 valentMatthew Petznick DO Work Phone: [facility] RehabMoovghqkgi13-05-0467onrhjjb and diphtheria toxoids, adsorbed, preservative free, for adult use (5 Lf of tetanus toxoid and 2 Lf of diphtheria toxoid)Nancy Jha DO Work Phone: WeimobNortheast [facility] Rural Health NetworkCuzbvavqvn98-30-7620ulrjutlvalnb conjugate vaccine, 13 valentMatthew Petznick DO Work Phone: noNortheast [facility] Health NetworkJmbeejrxkb43-78-5421osvizw vaccine, liveMatthew Petznick DO Work Phone: [facility] RehabQuiwqoukpi33-62-1015spjxnbtmv, seasonal, injectableDawn Fitt Other [facility]05-25-2016 pneumococcal polysaccharide vaccine, 23 valentDawn Fitt Other [facility] Payers DatePayer CategoryPayerPolicy [id number] Care (Private)[facility] Member Subscriber Plan / Payer (Effective 2023-Present) Name: Julia Villeda Relation to Subscriber: Spouse Name: FRANK VILLEDA SubscriberID: [id number] Date of : 1897 (Home) Address: [address] [place] [address] Payer ID: [id number] (NAIC) Type: Not on file Address: [address] Ismael Puckett [id number] 2023Medicare [id number]-tpg [id number] Health Insurance 1.2.840.922595.1.13.647.2.7.3.676827.48633-73-1493Ieopfva Health Insurance [id number] 2.16840.4.97108[id number] 2.0.1.643622.3.57[id number] 2.840.1.026938.3.57[id number] 2.840.1.009567.3.57[id number] 2.16840.1.478049.3.57[id number] 2.16840.1.068503.3.579.2.763837-63-1981Tpyphgl2716768 2.840.1.209130.3.579.2.556656-11-0343Oucqlqv8533401 2.840.1.967375.3.579.2.122105-55-9423Ibxjpmo7564214 2.16840.1.818957.3.57[id number] 2.16840.1.904285.3.579.2.040875-60-7139Jqitwtb64591021 2.840.1.927195.3.579.2.526895-26-9622Cukldpl34493011 2.16.840.1.728251.3.579.2.3[id number] 2.16.840.1.268108.3.579.2.[id number] 2.16840.1.483085.3.57[id number] 2.16840.1.399334.3.579.2.008244-47-4616Gnbibsk9424191 2.16840.1.631382.3.579.2.475755-76-8391Pedvbge5099808 2.16840.1.379454.3.579.2.320273-00-8317Xosmehn7350752 2.840.1.456322.3.579.2.000737-41-2620Ztapgev1750428 2.840.1.569878.3.579.2.057133-03-6728Gjheppl3256881 2.0.1.424434.3.579.2.886647-31-8500Slxgitx5981545 2.16840.1.330186.3.579.2.186601-27-0264Tgkjmzr8061578 2.840.1.447362.3.579.2.293991-79-5906Eskgpbi9975179 2.16840.1.130751.3.579.2.678101-18-8102Hewwfsd7415535 2.16840.1.863540.3.579.2.007608-49-4563Ceohbfi0049739 2.16840.1.063618.3.579.2.118099-55-4781Vqdahda1052864 2.16840.1.813557.3.579.2.067454-62-5411Hbibuiw1355170 2.16840.1.184963.3.579.2.265899-47-3413Rgdfeuk4859860 2.16840.1.616790.3.579.2.302641-94-3717Fzkxzqq3670018 2.16840.1.273008.3.579.2.461847-28-0869Wuvfsia5246264 2.0.1.390035.3.579.2.286264-17-3213Xxwkwul1867252 2..1.220051.3.579.2.203609-61-0909Wdoayuk5528294 2.0.1.356342.3.579.2.548265-45-3628Dolhfbx9907879 2.0.1.446655.3.579.2.153282-48-1603Wdjeubq3018109 2.0.1.688260.3.579.2.192345-02-1173Zixsqgp0046606 2.0.1.837216.3.579.2.840423-43-9583Fuoctym6836907 2.0.1.007160.3.579.2.000701-66-0296Yqifeot2557602 2.0.1.100420.3.579.2.620203-80-9306Kenbnmc3715232 2.840.1.601602.3.579.2.795746-10-7194Cmyqnrl5751364 2.840.1.887184.3.579.2.655164-28-8492Lprekzo2003390 2.840.1.572517.3.579.2.536615-43-0066Pyxkkim7439056 2..840.1.122148.3.579.2.723636-11-4337Ukshomn7411563 2.16.840.1.938903.3.579.2.650011-50-7302Ufmxdok6922326 2..840.1.599134.3.579.2.357462-93-6856Uumcnzv6418526 2.16.840.1.823669.3.579.2.1259MedicareMedicare-OP No Part B [id number] Health InsuranceScotland Memorial Hospital Health Claims [id number] 2.16.840.1.271383.3.579.2.501Fzfuxou97261812 2.16.840.1.721906.3.579.2.531 [id number] 2.16.840.1.948789.3.579.2.568Dubxsmc56133967 2.16.840.1.367317.3.579.2.830Akcdfxa76971915 2.16.840.1.605507.3.579.2.531 Social History DateTypeDetailFacilityUnknown if ever smokedNokindred hospital [place] Other Start: 08-26-2023 End: 83-63-8613Onq Assigned At [facility] [place] Other Start: 49-74-5730Ucd Assigned At [facility]: 10-17-2022 End: 91-35-5474Hsgmxeu smoking status NHISNever smoked tobacco (finding) [facility]: 10-22-2022 End: 45-94-5010Xzbqsit use and exposureSmokeless tobacco non-userUnBarnesville Hospital Work Phone: Start: 06-25-2023 End: 12-08-5257Ztnwzck intakeLifetime non-drinker (finding)[facility] Work Phone: Start: 08-26-2023 End: 29-09-0932Sdrzumx of Social functionUnBarnesville Hospital Work Phone: Start: 52-32-4529Uefflp identityIdentifies as female gender (finding)[facility] Work Phone: Start: 74-26-5371Bmqusr orientationHeterosexual (finding)[facility] Work Phone: Start: 06-12-2020 End: 22-56-7329Wmwcudvf to SARS-CoV-2 (event)Not sureUnBarnesville HospitalHow often to you have a drink containing alcohol?NeverUniversity Hospitals Portage Medical Center Start: 04-27-2022 End: 14-68-9136Xgwzlqu Number of DrinksNot on [facility]: 10-16-0246Pcl assigned at birthNot on [facility] WestWithin the last year, have you been afraid of your partner or ex-partner?NoNOMS HealthcareDo you belong to any clubs or organizations such as judaism groups, unions, fraternal or athletic groups, or school groups?YesNOMS HealthcareAre you now , , , , never or living with a partner?MarriedNOMS HealthcareDo you feel stress - tense, restless, nervous, or anxious, or unable to sleep at night because yourmind is troubled all the time - these days [OSQ] Not at allNOMS Healthcare(I/We) worried whether (my/our) food would run out before (I/we) got money to buy more.Never trueNONV HealthcareStart: 04-19-2023 Alcohol Commentcaffeine: hot chocolate, tea occasionalDAVIS HOSP[facility] HealthcareStart: 06-06-2024 End: 84-87-7554DkcTngczz (finding)[facility] HospitalNEGATED: Highlighted rowStart: NINFHistory of tobacco usePassive smokerSSM Rehab Medical Equipment Procedure CodeEquipment CodeEquipment Original TextEquipment IdentifierDates Arthroplasty, hip, total, anterior approachAcetabular shell ()[id number] FDAStart: 21-10-4303Gblvqrchflng, hip, total, anterior approachCeramic femoral head prosthesis ()[id number] FDAStart: 29-40-2845Wpxgobbcttmq, hip, total, anterior approachCoated hip femur prosthesis, modular ()[id number] FDAStart: 76-75-1977Qkvbvejtehjx, hip, total, anterior approachNon-constrained polyethylene acetabular liner ()[id number] FDAStart: 98-56-0540Jythul Simplex Gentamicin Bone High Viscosity 20ml Sterile 40gm - [id number]_prcRmtfl: 83-98-2575Guvvgi Triathlon 4 10mm Tibial Bearing Posterior Stabilize Sterile Knee - [id number]_gfyFtwwg: 39-16-8949Ybolld Triathlon 4 9mm Tibial Bearing Condylar Stabilize Sterile Knee - [id number]_rucSfndq: 10-03-2020 Component Tritanium 35mm Metal 10mm Patellar Asymmetric Knee - [id number]_impStart: 04-01-3076Thainwubd Triathlon 4 Pa Femoral Cruciate Retain Bead Knee Right - [id number]_djrFacwm: 02-58-5292Bnnuvwdne Triathalon 4 Tritanium Tibial Coated Sterile Knee - [id number]_zmwGrckj: 10-03-2020 Component Triathlon 35mm 10mm Patellar Asymmetric Knee - [id number]_ran Start: 03-59-8058Bjjpbsmqi Triathlon 4 Femoral Cemented Posterior Stabilize Knee Left - [id number]_zaaZrzyn: 12-35-8787Ucqtixqgy Triathlon 4 Tibial Primary Cement Knee - [id number]_gkwVchcm: 15-99-5417Vhssv Sut 5.5mm [facility] Crkscr - [id number]_qamXcqhh: 66-14-8902Cvqquth on above: 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 Please advise. [facility] RehabUgfofuukxt27-62-9383 Miscellaneous Notes* Telephone Encounter - Jennifer Garnett - 03/26/2025 8:03 AM EDT Pt called request medication for Covid, she tested positive for Covid yesterday night. Please advise. documented in this encounterSSM RehabZcadwpujkc75-64-4865 History of Present illness Narrative* Mary Alice Tatum MD - 12/18/2024 10:45 AM EDT Images from the original note were not included. Chief Complaint: Chief Complaint Patient presents with Follow-up 6m Follow up for Hypertension I last saw her for preoperative cardiac risk assessment prior to foot surgery. Patient is also here for hypertension, high risk medication management. Foot surgery completed without untoward events Subjective : Review of Systems Interval review of systems is negative for chest discomfort pressure tightness heaviness palpitations lightheadedness orthopnea paroxysmal nocturnal dyspnea dependent edema or claudication TIA or CVAtype symptoms or bleeding diathesis 12 point review of systems negative or noncontributory except as noted. History so Far : [...] mmHg 13. EKG September 2020-normal sinus rhythm MT interval 164 ms QRS duration 138 ms [...] Objective Wt Readings from Last 3 Encounters: 12/18/24 110 kg (243 lb) 06/29/24 108 kg (238 lb) 09/23/24 102 kg (225 lb) Vitals: 12/18/24 1042 BP: 104/60 BP Location: Left arm Patient Position: Sitting Pulse: 70 Weight: 110 kg (243 lb) Height: 1.715 m (5' 7.5 ) [...] CD) 120 mg, oral, Daily ferrous sulfate 325 mg, Every other day flecainide (TAMBOCOR) 50 mg, oral, 2 times daily levothyroxine (SYNTHROID, LEVOXYL) 100 mcg, Every other day levothyroxine (TIROSINT) 112 mcg, Every other day lisinopril 20 mg, oral, Daily MAGNESIUM CITRATE ORAL Daily multivitamin tablet 1 tablet, Daily nitroglycerin (NITROSTAT) 0.4 mg, sublingual, Every 5 min PRN NON FORMULARY 2.5 mg Triest daily selenium (SELENOMAX ORAL) 100 mcg/day, Daily sertraline (ZOLOFT) 25 mg, Daily RT Allergies: Bee venom protein (honey bee), Isosorbide, Metoprolol, Prednisone, Shellfish containing products, Adhesive, Imodium [loperamide], Iodine, Latex, and Penicillin Reviewed all available pertinent laboratory data and diagnostic testing results that occurred afterthe last office visit with me Assessment: 1. Primary hypertension Follow Up In Cardiology 2. High risk medication use 3. History of PSVT (paroxysmal supraventricular tachycardia) 4. RBBB 5. BMI 37.0-37.9, adult 6. Never smoked tobacco Clinical Decision Making: Doing well clinically. Blood pressure is at target EKG reviewed Activity level has increased. TSH elevated at 5.26 from 2 months ago, she will follow-up with primary MD. At last visit we had talked about GLP-1 agents, she prefers to avoid medications, energy healthy weight through lifestyle modification. Follow up : 1 year Comprehensive profile prior to next visit I,Amber Saha LPN am scribing for, and in the presence of Dr. Mary Alice Tatum MD, [facility]. I, Dr. Mary Alice Tatum MD, [facility], personally performed the services described in the documentation as scribed by Amber Saha LPN in my presence, and confirm it is both accurate and complete. documented in this encounterPremier Health Work Phone: [phone]) 399-187507-18-2025 Instructions* Patient Instructions* Amber Alberts LPN - 12/18/2024 10:45 AM EDT Please bring all medicines, vitamins, [...] BMI was above normal measurement. Current weight: 110 kg (243 lb) Weight change since last visit (-) denotes wt loss 5 lbs Weight loss needed to achieve BMI 25: 81.3 Lbs Weight loss needed to achieve BMI 30: 49 Lbs Provided instructions on dietary changes. * Attachments The following attachments cannot be sent through Care Everywhere. * Heart Healthy Diet (Montenegrin) documented in this encounterPremier Health Work Phone: [phone]) 425-221207-17-2025 Telephone encounter Note* Telephone Encounter - Nancy Jha DO - 12/17/2024 2:32 PM EDT Okay to recheck SSM RehabTefrqdydyk90-57-3507 Miscellaneous Notes* Telephone Encounter - Nancy Jha DO - 12/17/2024 2:32 PM EDT Okay to recheck documented in this [facility]06-02-2025 History of Present illness Narrative* Jaci Brandt MD - 11/02/2024 10:30 AM EDT Assessment/Plan PCO OU: (Posterior Capsule Opacification) Can be observed without intervention if PCO is not visually significant. Nd:YAG laser capsulotomy may be considered if impairment of vision rises to a level that dose not meet the patient's functional needs or interferes with activities of daily living. Risks, benefits and alternatives to the procedure will be reviewed. If the patient has undergone Nd:YAG laser capsulotomy, they are to notify their supervisor lending activities promptly if they have asignificant change in symptoms, such as flashes of light (photopsia), an increase in floaters, lossof visual field or decrease in visual acuity. documented in this [facility]05-30-2025 History of Present illness Narrative* Elkin Womack, PT - 10/30/2024 12:45 PM EDT Physical Therapy Physical Therapy Evaluation Visit Patient Name: Julia Villeda Today's Date: 10/30/2024 Encounter Diagnoses Name Primary? 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 Compression socks are tolerated. Unable to tolerate BRET Hose/Compression hose. Subjective History: 74 yo female presents per referral of Margarito Jones MD post partial fifth metatarsalresection, ostectomy naviculocuneiform joint performed on 07/09/24 due to progressive pain and weightbearing activity deficits. PT recommended to assist with edema reduction and normalization of functional mobility including resumption of out of home weightbearing activity including volunteer activity as local hospital (08/07/24-DBO) Pain: Presents wearing new orthotics with new shoes. Minimal pain when shoes and orthotic are on. Mild discomfort when walking in the middle of the night without shoes. Was able to be active on vacation with minimal pain. Objective: Examination performed on 10/30/24-DBO Presents with New Balance shoes and custom inserts. Minimal residual pain in left foot with tennis shoes. Edema at medial arch and medial Achilles distribution is mostly resolved. Digit 5 mobility and post surgical scar sensitivity is resolved. Gross left foot AROM is WFL with DF 10 degrees, PF 40 degrees, Inversion 30 degrees, and eversion 15 degrees. Foot intrinsic strength and general foot/ankle strength 4+/5. The patient's scores LEFS 54/80 consistent with moderate functional impairment and is consistent with PT examination findings. 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 INTERVENTIONS Manual: Grade I/II STM over affected structures, general foot and ankle mobilization for promotion of normal mechanics and edema reduction/scar tissue remodeling (20 Min including addition of xfriction STM to tibiocalcaneal ligament) Therapeutic Exercise: Per Exercise Grid found in flow sheet including trunk and LE flexibility and core/general strengthening, specific foot and ankle strength, balance, proprioception, and stabilitytraining (10 Min) Therapeutic Activity: Functional Activity Training; (PRN) Neuromuscular Re-education: Neuromuscular reeducation including muscle facilitation, ergonomic and postural training, intrinsic foot strengthening, stability and balance training protocol (Held due to exacerbation) Modalities: Ultrasound medial ankle at tibiocalcaneal ligament left foot/ankle 3 MHz 1.2 W/cm2 (10 Minutes) for inflammation and pain control. Goals: Short Term Goals: To be met by 10/31/24 The patient to demonstrate 50% reduction in pain to at worst 3/10 intensity in 2-4 weeks and by >75% to intermittent 0-2/10 intensity in 4-6 weeks The patient to be knowledgeable and compliant with shoe and HEP recommendation to reduce pain, promote tissue healing, and prevent complications in 2 weeks The patient to demonstrate foot and ankle ROM/Strength WFL in 4-6 weeks The patient to resume all previously performed home activity including normal ADL, full resumption of household management activity, and hospital volunteer activity with scoring of <20% residual functional deficit via LEFS f/u difficulty questionnaire by conclusion of treatment expected in 6-8 weeks. The patient to be successful with long-term independent management including recommendation for participation in daily stretching and strengthening program with good compliance with shoe wear recommendations with consideration of over the counter or custom orthotics half-way in additional to standard promotion of health and wellness by conclusion of PT expected in 6-8 weeks Rehab Potential: Good PT Assessment: The patient has participated in 12 outpatient PT sessions since start of care on 08/07/24 post partial fifth metatarsal resection, ostectomy naviculocuneiform joint performed on 07/09/24 due to progressive pain and weightbearing activity deficits with Margarito Jones MD. Patient has met goals of PT intervention and is independent with HEP. Recommend PT discharge with goals met. Note forwarded to referring Margarito Jones MD for review and co-signature (10/30/24-DBO) Plan: Recommend PT discharge as above (10/30/24-DBO) I hereby deem this POC medically necessary. Please sign below and fax back to the number below. Physician Signature: Date: documented in this encounterSSM [id number] History of Present illness Narrative* Elkin Womack PT - 10/13/2024 12:30 PM EDT Physical Therapy Physical Therapy Evaluation Visit Patient Name: Julia Villeda Today's Date: 10/13/2024 Encounter Diagnoses Name Primary? Arthritis of left ankle Yes maribel Villegas Time In: 12:30 pm Time out: 1:10 pm Supervised Time: 40 Min Total Time: 40 Min Visit Number: 11 (Patient has $30 copay and visits based on med necessity) Chief Complaint: S/P left partial fifth metatarsal resection, ostectomy naviculocuneiform joint DOS: 07/09/24 with Margarito Jones MD PRECAUTIONS: WBAT with tennis shoes. Compression socks are tolerated. Unable to tolerate BRET Hose/Compression hose. Subjective History: 74 yo female presents per referral of Margarito Jones MD post partial fifth metatarsalresection, ostectomy naviculocuneiform joint performed on 07/09/24 due to progressive pain and weightbearing activity deficits. PT recommended to assist with edema reduction and normalization of functional mobility including resumption of out of home weightbearing activity including volunteer activity as local hospital (08/07/24-O) Pain: Presents wearing new orthotics that arrived in the last 2 days. Was able to be active on feetwith volunteer activity at hospital including lots of walking. Mild irritation at left lateral footin region of punch-out of orthotic. Overall, is pleased with new orthotics with good reduction in chronicity of pain and tolerance to weightbearing activity since implementation approximately 24 hours ago. Objective: Examination performed on 08/07/24-[facility] The patient has moderately high arches bilaterally. Gait demonstrates moderate loss of heel strike with excessive lateral weightbearing throughout mid and terminal stance phase of gait cycle that hasled to inappropriate increased lateral weightbearing over 4th and 5th metatarsals resulting in chronic callus formation. Post surgical incision are intact and well healing with no s/s of complication. Foot and lower leg edema is visible on left compared to right and mild. Gross left foot AROM is WFL with DF 6 degrees, PF 30 degrees, Inversion 30 degrees, and eversion 10 degrees. Foot intrinsic strength and general foot/ankle strength 4-/5. The patient's scores LEFS 42/80 consistent with moderate functional impairment and is consistent with PT examination findings. Therapy Diagnosis: The patient's primary functional limitation is associated with walking and moving with mild to moderate impairment via LEFS consistent with PT examination findings. Functional Limitations: Chronic pain, decreased tolerance to community distance ambulation and stairs, moderate pes planus/pronation dysfunction, moderate flexibility and strength deficit, altered gait mechanics, and moderate ADL, household management, work, sleep, and recreational deficits. 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 INTERVENTIONS Manual: Grade I/II STM over affected structures, general foot and ankle mobilization for promotion of normal mechanics and edema reduction/scar tissue remodeling (15 Min including addition of xfriction STM to tibiocalcaneal ligament) Therapeutic Exercise: Per Exercise Grid found in flow sheet including trunk and LE flexibility and core/general strengthening, specific foot and ankle strength, balance, proprioception, and stabilitytraining (15 Min) Therapeutic Activity: Functional Activity Training; (PRN) Neuromuscular Re-education: Neuromuscular reeducation including muscle facilitation, ergonomic and postural training, intrinsic foot strengthening, stability and balance training protocol (Held due to exacerbation) Modalities: Ultrasound medial ankle at tibiocalcaneal ligament left foot/ankle 3 MHz 1.2 W/cm2 (10 Minutes) for inflammation and pain control. Goals: Short Term Goals: To be met by 10/31/24 The patient to demonstrate 50% reduction in pain to at worst 3/10 intensity in 2-4 weeks and by >75% to intermittent 0-2/10 intensity in 4-6 weeks The patient to be knowledgeable and compliant with shoe and HEP recommendation to reduce pain, promote tissue healing, and prevent complications in 2 weeks The patient to demonstrate foot and ankle ROM/Strength WFL in 4-6 weeks The patient to resume all previously performed home activity including normal ADL, full resumption of household management activity, and hospital volunteer activity with scoring of <20% residual functional deficit via LEFS f/u difficulty questionnaire by conclusion of treatment expected in 6-8 weeks. The patient to be successful with long-term independent management including recommendation for participation in daily stretching and strengthening program with good compliance with shoe wear recommendations with consideration of over the counter or custom orthotics buttermaker helper in additional to standard promotion of health and wellness by conclusion of PT expected in 6-8 weeks Rehab Potential: Good PT Assessment: The patient has participated in 11 outpatient PT sessions since start of care on 08/07/24 post partial fifth metatarsal resection, ostectomy naviculocuneiform joint performed on 07/09/24 due to progressive pain and weightbearing activity deficits with Margarito Jones MD. Dr Jones referred to PT for pain/edema reduction and normalization of functional ROM, strength, and mobility. Presents wearing new orthotics that arrived in the last 2 days. Was able to be active on feet with volunteer activity at hospital including lots of walking. Mild irritation at left lateral foot in region of punch-out of orthotic. Overall, is pleased with new orthotics with good reduction in chronicity of pain and tolerance to weightbearing activity since implementation approximately 24 hours ago. Follow-up in 2 weeks if necessary to recheck orthotic. Should patient be successful with independent management this will serve as discharge summary (10/13/24-DBO) Plan: Recommend outpatient PT 1-3 times/week for up to 8 weeks per above PT POC pending patient progress and medical necessity standards (08/07/24-DBO) I hereby deem this POC medically necessary. Please sign below and fax back to the number below. Physician Signature: Date: documented in this encounterSSM [id number] History of Present illness Narrative* Elkin Womack, PT - 10/07/2024 2:00 PM EDT Physical Therapy Physical Therapy Evaluation Visit Patient Name: Julia Villeda Today's Date: 10/07/2024 Encounter Diagnoses Name Primary? Arthritis of left ankle Yes Dave'maribel ferrer Time In: 2:00 pm Time out: 2:45 pm Supervised Time: 45 Min Total Time: 45 Min Visit Number: 10 (Patient has $30 copay and visits based on med necessity) Chief Complaint: S/P left partial fifth metatarsal resection, ostectomy naviculocuneiform joint DOS: 07/09/24 with Peter D Highlander, MD PRECAUTIONS: WBAT with tennis shoes. Compression socks are tolerated. Unable to tolerate BRET Hose/Compression hose. Subjective History: 74 yo female presents per referral of Margarito Jones MD post partial fifth metatarsalresection, ostectomy naviculocuneiform joint performed on 07/09/24 due to progressive pain and weightbearing activity deficits. PT recommended to assist with edema reduction and normalization of functional mobility including resumption of out of home weightbearing activity including volunteer activity as local hospital (08/07/24-DBO) Pain: Presents with increased pain and edema left foot she attributes to volunteering yesterday andoverall increased activity. [facility] Objective: Examination performed on 08/07/24-DBO The patient has moderately high arches bilaterally. Gait demonstrates moderate loss of heel strike with excessive lateral weightbearing throughout mid and terminal stance phase of gait cycle that hasled to inappropriate increased lateral weightbearing over 4th and 5th metatarsals resulting in chronic callus formation. Post surgical incision are intact and well healing with no s/s of complication. Foot and lower leg edema is visible on left compared to right and mild. Gross left foot AROM is WFL with DF 6 degrees, PF 30 degrees, Inversion 30 degrees, and eversion 10 degrees. Foot intrinsic strength and general foot/ankle strength 4-/5. The patient's scores LEFS 42/80 consistent with moderate functional impairment and is consistent with PT examination findings. Therapy Diagnosis: The patient's primary functional limitation is associated with walking and moving with mild to moderate impairment via LEFS consistent with PT examination findings. Functional Limitations: Chronic pain, decreased tolerance to community distance ambulation and stairs, moderate pes planus/pronation dysfunction, moderate flexibility and strength deficit, altered gait mechanics, and moderate ADL, household management, work, sleep, and recreational deficits. 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 INTERVENTIONS Manual: Grade I/II STM over affected structures, general foot and ankle mobilization for promotion of normal mechanics and edema reduction/scar tissue remodeling (20 Min including addition of xfriction STM to tibiocalcaneal ligament) Therapeutic Exercise: Per Exercise Grid found in flow sheet including trunk and LE flexibility and core/general strengthening, specific foot and ankle strength, balance, proprioception, and stabilitytraining (15 Min) Therapeutic Activity: Functional Activity Training; (PRN) Neuromuscular Re-education: Neuromuscular reeducation including muscle facilitation, ergonomic and postural training, intrinsic foot strengthening, stability and balance training protocol (Held due to exacerbation) Modalities: Ultrasound medial ankle at tibiocalcaneal ligament left foot/ankle 3 MHz 1.2 W/cm2 (10 Minutes) for inflammation and pain control. Goals: Short Term Goals: To be met by 09/30/24 The patient to demonstrate 50% reduction in pain to at worst 3/10 intensity in 2-4 weeks and by >75% to intermittent 0-2/10 intensity in 4-6 weeks The patient to be knowledgeable and compliant with shoe and HEP recommendation to reduce pain, promote tissue healing, and prevent complications in 2 weeks The patient to demonstrate foot and ankle ROM/Strength WFL in 4-6 weeks The patient to resume all previously performed home activity including normal ADL, full resumption of household management activity, and hospital volunteer activity with scoring of <20% residual functional deficit via LEFS f/u difficulty questionnaire by conclusion of treatment expected in 6-8 weeks. The patient to be successful with long-term independent management including recommendation for participation in daily stretching and strengthening program with good compliance with shoe wear recommendations with consideration of over the counter or custom orthotics half-way in additional to standard promotion of health and wellness by conclusion of PT expected in 6-8 weeks Rehab Potential: Good PT Assessment: The patient has participated in 10 outpatient PT sessions since start of care on 08/07/24 post partial fifth metatarsal resection, ostectomy naviculocuneiform joint performed on 07/09/24 due to progressive pain and weightbearing activity deficits with Margarito Jones MD. Dr Jones referred to PT for pain/edema reduction and normalization of functional ROM, strength, and mobility. Presents with increased pain and edema left foot she attributes to busy Easter with lots of time onher feet and increased foot pain/edema. Has been contacted by orthotic company and has agreed to have orthotics manufactured with expectation of arrival in 2-4 weeks. Pain at arrival 3-4/10 with mildlimp. Pain reduced with treatment. Follow up in 1-2 weeks. Encouraged HEP and progression of walking program as tolerated. Plan: Recommend outpatient PT 1-3 times/week for up to 8 weeks per above PT POC pending patient progress and medical necessity standards (08/07/24-DBO) I hereby deem this POC medically necessary. Please sign below and fax back to the number below. Physician Signature: Date: documented in this encounterSSM [id number] History of Present illness Narrative* Elkin Womack, PT - 09/21/2024 11:30 AM EDT Physical Therapy Physical Therapy Evaluation Visit Patient Name: Julia Villeda Today's Date: 09/21/2024 Encounter Diagnoses Name Primary? Arthritis of left ankle Yes Tailor's bunionette, left Time In: 11:30 am Time out: 12:15 pm Supervised Time: 45 Min Total Time: 45 Min Visit Number: 9 (Patient has $30 copay and visits based on med necessity) Chief Complaint: S/P left partial fifth metatarsal resection, ostectomy naviculocuneiform joint DOS: 07/09/24 with Margarito Jones MD PRECAUTIONS: WBAT with tennis shoes. Compression socks are tolerated. Unable to tolerate BRET Hose/Compression hose. Subjective History: 74 yo female presents per referral of Margarito Jones MD post partial fifth metatarsalresection, ostectomy naviculocuneiform joint performed on 07/09/24 due to progressive pain and weightbearing activity deficits. 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 Has been contacted by orthotic company and has agreedto have orthotics manufactured with expectation of arrival in 2-4 weeks. Pain at arrival 3-4/10 with mild limp. Objective: Examination performed on 08/07/24-O The patient has moderately high arches bilaterally. Gait demonstrates moderate loss of heel strike with excessive lateral weightbearing throughout mid and terminal stance phase of gait cycle that hasled to inappropriate increased lateral weightbearing over 4th and 5th metatarsals resulting in chronic callus formation. Post surgical incision are intact and well healing with no s/s of complication. Foot and lower leg edema is visible on left compared to right and mild. Gross left foot AROM is WFL with DF 6 degrees, PF 30 degrees, Inversion 30 degrees, and eversion 10 degrees. Foot intrinsic strength and general foot/ankle strength 4-/5. The patient's scores LEFS 42/80 consistent with moderate functional impairment and is consistent with PT examination findings. Therapy Diagnosis: The patient's primary functional limitation is associated with walking and moving with mild to moderate impairment via LEFS consistent with PT examination findings. Functional Limitations: Chronic pain, decreased tolerance to community distance ambulation and stairs, moderate pes planus/pronation dysfunction, moderate flexibility and strength deficit, altered gait mechanics, and moderate ADL, household management, work, sleep, and recreational deficits. 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 INTERVENTIONS Manual: Grade I/II STM over affected structures, general foot and ankle mobilization for promotion of normal mechanics and edema reduction/scar tissue remodeling (20 Min including addition of xfriction STM to tibiocalcaneal ligament) Therapeutic Exercise: Per Exercise Grid found in flow sheet including trunk and LE flexibility and core/general strengthening, specific foot and ankle strength, balance, proprioception, and stabilitytraining (15 Min) Therapeutic Activity: Functional Activity Training; (PRN) Neuromuscular Re-education: Neuromuscular reeducation including muscle facilitation, ergonomic and postural training, intrinsic foot strengthening, stability and balance training protocol (Held due to exacerbation) Modalities: Ultrasound medial ankle at tibiocalcaneal ligament left foot/ankle 3 MHz 1.2 W/cm2 (10 Minutes) for inflammation and pain control. Goals: Short Term Goals: To be met by 09/30/24 The patient to demonstrate 50% reduction in pain to at worst 3/10 intensity in 2-4 weeks and by >75% to intermittent 0-2/10 intensity in 4-6 weeks The patient to be knowledgeable and compliant with shoe and HEP recommendation to reduce pain, promote tissue healing, and prevent complications in 2 weeks The patient to demonstrate foot and ankle ROM/Strength WFL in 4-6 weeks The patient to resume all previously performed home activity including normal ADL, full resumption of household management activity, and hospital volunteer activity with scoring of <20% residual functional deficit via LEFS f/u difficulty questionnaire by conclusion of treatment expected in 6-8 weeks. The patient to be successful with long-term independent management including recommendation for participation in daily stretching and strengthening program with good compliance with shoe wear recommendations with consideration of over the counter or custom orthotics half-way in additional to standard promotion of health and wellness by conclusion of PT expected in 6-8 weeks Rehab Potential: Good PT Assessment: The patient has participated in 9 outpatient PT sessions since start of care on 08/07/24 post partial fifth metatarsal resection, ostectomy naviculocuneiform joint performed on 07/09/24 due to progressive pain and weightbearing activity deficits with Margarito Jones MD. Dr Jones referred to PT for pain/edema reduction and normalization of functional ROM, strength, and mobility. Presents with increased pain and edema left foot she attributes to busy Easter with lots of time onher feet and increased foot pain/edema. Has been contacted by [facility] and has agreed to have orthotics manufactured with expectation of arrival in 2-4 weeks. Pain at arrival 3-/10 with mildlimp. Pain reduced with treatment. Follow up in 1-2 weeks. Encouraged HEP and progression of walking program as tolerated. Plan: Recommend outpatient PT 1-3 times/week for up to 8 weeks per above PT POC pending patient progress and medical necessity standards (08/07/24-DBO) I hereby deem this POC medically necessary. Please sign below and fax back to the number below. Physician Signature: Date: documented in this encounterSSM [id number] History of Present illness Narrative* Elkin Womack PT - 09/14/2024 10:00 AM EDT Physical Therapy Physical Therapy Evaluation Visit Patient Name: Julia Villeda Today's Date: 09/14/2024 Encounter Diagnoses Name Primary? Arthritis of left ankle Yes maribel Villegas Time In: 10:00 am Time out: 10:45 am Supervised Time: 45 Min Total Time: 45 Min Visit Number: 8 (Patient has $30 copay and visits based on med necessity) Chief Complaint: S/P left partial fifth metatarsal resection, ostectomy naviculocuneiform joint DOS: 07/09/24 with Margarito Jones MD PRECAUTIONS: WBAT with tennis shoes. Compression socks are tolerated. Unable to tolerate BRET Hose/Compression hose. Subjective History: 74 yo female presents per referral of Margarito Jones MD post partial fifth metatarsalresection, ostectomy naviculocuneiform joint performed on 07/09/24 due to progressive pain and weightbearing activity deficits. 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 Continues to increased weightbearing activity with soreness and localized medial ankle and lateral pinky toe pain. Mild limp persists. Custom orthotics have been casted and sent out. Plan 3/8 in ch lift with 1/8 inch increased padding on left only. Patient may need up to an additional 1/4 liftadded under orthotic if as she is currently utilized 3/4 lift at this time. Objective: Examination performed on 08/07/24-[facility] The patient has moderately high arches bilaterally. Gait demonstrates moderate loss of heel strike with excessive lateral weightbearing throughout mid and terminal stance phase of gait cycle that hasled to inappropriate increased lateral weightbearing over 4th and 5th metatarsals resulting in chronic callus formation. Post surgical incision are intact and well healing with no s/s of complication. Foot and lower leg edema is visible on left compared to right and mild. Gross left foot AROM is WFL with DF 6 degrees, PF 30 degrees, Inversion 30 degrees, and eversion 10 degrees. Foot intrinsic strength and general foot/ankle strength 4-/5. The patient's scores LEFS 42/80 consistent with moderate functional impairment and is consistent with PT examination findings. Therapy Diagnosis: The patient's primary functional limitation is associated with walking and moving with mild to moderate impairment via LEFS consistent with PT examination findings. Functional Limitations: Chronic pain, decreased tolerance to community distance ambulation and stairs, moderate pes planus/pronation dysfunction, moderate flexibility and strength deficit, altered gait mechanics, and moderate ADL, household management, work, sleep, and recreational deficits. 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 INTERVENTIONS Manual: Grade I/II STM over affected structures, general foot and ankle mobilization for promotion of normal mechanics and edema reduction/scar tissue remodeling (20 Min including addition of xfriction STM to tibiocalcaneal ligament) Therapeutic Exercise: Per Exercise Grid found in flow sheet including trunk and LE flexibility and core/general strengthening, specific foot and ankle strength, balance, proprioception, and stabilitytraining (15 Min) Therapeutic Activity: Functional Activity Training; (PRN) Neuromuscular Re-education: Neuromuscular reeducation including muscle facilitation, ergonomic and postural training, intrinsic foot strengthening, stability and balance training protocol (Held due to exacerbation) Modalities: Ultrasound medial ankle at tibiocalcaneal ligament left foot/ankle 3 MHz 1.2 W/cm2 (10 Minutes) for inflammation and pain control. Goals: Short Term Goals: To be met by 09/30/24 The patient to demonstrate 50% reduction in pain to at worst 3/10 intensity in 2-4 weeks and by >75% to intermittent 0-2/10 intensity in 4-6 weeks The patient to be knowledgeable and compliant with shoe and HEP recommendation to reduce pain, promote tissue healing, and prevent complications in 2 weeks The patient to demonstrate foot and ankle ROM/Strength WFL in 4-6 weeks The patient to resume all previously performed home activity including normal ADL, full resumption of household management activity, and hospital volunteer activity with scoring of <20% residual functional deficit via LEFS f/u difficulty questionnaire by conclusion of treatment expected in 6-8 weeks. The patient to be successful with long-term independent management including recommendation for participation in daily stretching and strengthening program with good compliance with shoe wear recommendations with consideration of over the counter or custom orthotics half-way in additional to standard promotion of health and wellness by conclusion of PT expected in 6-8 weeks Rehab Potential: Good PT Assessment: The patient has participated in 8 outpatient PT sessions since start of care on 08/07/24 post partial fifth metatarsal resection, ostectomy naviculocuneiform joint performed on 07/09/24 due to progressive pain and weightbearing activity deficits with Margarito Jones MD. Dr Jones referred to PT for pain/edema reduction and normalization of functional ROM, strength, and mobility. Returns 4-days post last visit on 09/11/23 with reports of fair improvement following last session.Continues to increased weightbearing activity with soreness and localized medial ankle and lateral pinky toe pain. Mild limp persists. Custom orthotics have been casted and sent out. Plan 3/8 inch lift with 1/8 inch increased padding on left only. Patient may need up to an additional 1/4 lift addedunder orthotic if as she is currently utilized 3/4 lift at this time. Pain reduced with treatment. Follow up in 1 weeks. Encouraged HEP and progression of walking program as tolerated. Plan: Recommend outpatient PT 1-3 times/week for up to 8 weeks per above PT POC pending patient progress and medical necessity standards (08/07/24-[facility]O) I hereby deem this POC medically necessary. Please sign below and fax back to the number below. Physician Signature: Date: documented in this encounterSSM [id number] History of Present illness Narrative* Elkin Womack, PT - 09/03/2024 10:45 AM EDT Physical Therapy Physical Therapy Evaluation Visit Patient Name: Julia Villeda Today's Date: 09/03/2024 Encounter Diagnoses Name Primary? Arthritis of left ankle Yes Tailor's bunionette, left Time In: 10:45 am Time out: 11:25 am Supervised Time: 45 Min Total Time: 45 Min Visit Number: 6 (Patient has $30 copay and visits based on med necessity) Chief Complaint: S/P left partial fifth metatarsal resection, ostectomy naviculocuneiform joint DOS: 07/09/24 with Margarito Jones MD PRECAUTIONS: WBAT with tennis shoes. Compression socks are tolerated. Unable to tolerate BRET Hose/Compression hose. Subjective History: 74 yo female presents per referral of Margarito Jones MD post partial fifth metatarsalresection, ostectomy naviculocuneiform joint performed on 07/09/24 due to progressive pain and weightbearing activity deficits. 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 Reports returning to volunteer activities at hospital on Saturdaywith lots of walking followed by increased walking shopping yesterday resulting in pain up to 5-6/10 intensity with mild to moderate edema exacerbation. Objective: Examination performed on 08/07/24-O The patient has moderately high arches bilaterally. Gait demonstrates moderate loss of heel strike with excessive lateral weightbearing throughout mid and terminal stance phase of gait cycle that hasled to inappropriate increased lateral weightbearing over 4th and 5th metatarsals resulting in chronic callus formation. Post surgical incision are intact and well healing with no s/s of complication. Foot and lower leg edema is visible on left compared to right and mild. Gross left foot AROM is WFL with DF 6 degrees, PF 30 degrees, Inversion 30 degrees, and eversion 10 degrees. Foot intrinsic strength and general foot/ankle strength 4-/5. The patient's scores LEFS 42/80 consistent with moderate functional impairment and is consistent with PT examination findings. Therapy Diagnosis: The patient's primary functional limitation is associated with walking and moving with mild to moderate impairment via LEFS consistent with PT examination findings. Functional Limitations: Chronic pain, decreased tolerance to community distance ambulation and stairs, moderate pes planus/pronation dysfunction, moderate flexibility and strength deficit, altered gait mechanics, and moderate ADL, household management, work, sleep, and recreational deficits. 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 INTERVENTIONS Manual: Grade I/II STM over affected structures, general foot and ankle mobilization for promotion of normal mechanics and edema reduction/scar tissue remodeling (30 Min including addition of xfriction STM to tibiocalcaneal ligament) Therapeutic Exercise: Per Exercise Grid found in flow sheet including trunk and LE flexibility and core/general strengthening, specific foot and ankle strength, balance, proprioception, and stabilitytraining (Held due to exacerbation) Therapeutic Activity: Functional Activity Training (PRN) Neuromuscular Re-education: Neuromuscular reeducation including muscle facilitation, ergonomic and postural training, intrinsic foot strengthening, stability and balance training protocol (Held due to exacerbation) Modalities: Ultrasound medial ankle at tibiocalcaneal ligament left foot/ankle 3 MHz 1.2 W/cm2 (10 Minutes) for inflammation and pain control. Goals: Short Term Goals: To be met by 09/30/24 The patient to demonstrate 50% reduction in pain to at worst 3/10 intensity in 2-4 weeks and by >75% to intermittent 0-2/10 intensity in 4-6 weeks The patient to be knowledgeable and compliant with shoe and HEP recommendation to reduce pain, promote tissue healing, and prevent complications in 2 weeks The patient to demonstrate foot and ankle ROM/Strength WFL in 4-6 weeks The patient to resume all previously performed home activity including normal ADL, full resumption of household management activity, and hospital volunteer activity with scoring of <20% residual functional deficit via LEFS f/u difficulty questionnaire by conclusion of treatment expected in 6-8 weeks. The patient to be successful with long-term independent management including recommendation for participation in daily stretching and strengthening program with good compliance with shoe wear recommendations with consideration of over the counter or custom orthotics half-way in additional to standard promotion of health and wellness by conclusion of PT expected in 6-8 weeks Rehab Potential: Good PT Assessment: The patient has participated in 6 outpatient PT sessions since start of care on 08/07/24 post partial fifth metatarsal resection, ostectomy naviculocuneiform joint performed on 07/09/24 due to progressive pain and weightbearing activity deficits with Margarito Jones MD. Dr Jones referred to PT for pain/edema reduction and normalization of functional ROM, strength, and mobility. Returns after 2-week HEP trial with reports of moderate medial ankle pain and edema at the tibiocalcaneal ligament medial ankle. Reports returning to volunteer activities at hospital on [place] with lots of walking followed by increased walking shopping yesterday resulting in pain up to 5-6/10 intensity with mild to moderate edema exacerbation. Added Ultrasound to the Tibiocalcaneal ligament and Cross Friction STM to medial ankle. Good reduction in pain and normalization of edema. Follow-up in 1 week to recheck and progress. Plan: Recommend outpatient PT 1-3 times/week for up to 8 weeks per above PT POC pending patient progress and medical necessity standards (08/07/24-[facility]O) I hereby deem this POC medically necessary. Please sign below and fax back to the number below. Physician Signature: Date: documented in this [facility]03-31-2025 Evaluation note* Diagnosis Onset Date Resolution Status Admit Date BMI 37.0-37.9, adult acuteMarch 2024 9:57amExcessive sleepinessacuteMarch 2024 9:57am Bradley's diseaseacuteMarch 2024 9:57amHypertensionacuteMarch 2024 9:57amSleep apnea treated with continuous positive airway pressure (CPAP)acute August 31, 2024 9:57amSVT (supraventricular tachycardia)acuteMarch 2024 9:57am [facility] Work Phone: [phone] 310-535603-28-2025 History of Present illness Narrative* Radha Jha, DO - 08/28/2024 1:45 PM EDT Images from the original note were not included. Julia Villeda is a 74 y.o. female presents with chief complaint of URI HPI: Upper Respiratory Infection Patient complains of symptoms of a URI. Symptoms include coughing, runny nose, nasal congestion, glands are sore, slight headache, fatigue and chills at times. Onset of symptoms was 4 days ago, and has been gradually worsening since that time. Treatment to date: tylenol SUBJECTIVE: See medication list at the end of the note. Allergies Allergen Reactions Metoprolol Dizziness, Headache and GI intolerance Bee Venom Swelling and Unknown Other Reaction(s): Unknown Isosorbide Dizziness Prednisone Other Reaction(s): headache,heart racing Shellfish Allergy Other Reaction(s): GI Upset Shellfish-Derived Products Other Reaction(s): Unknown Iodine Itching, Rash and Unknown Latex Itching, Rash and Unknown Rash Penicillin G Rash, Itching and Unknown Other Reaction(s): Unknown Penicillins Itching and Rash Other Reaction(s): Unknown Wound Dressing Adhesive Itching, Rash and Unknown Other Reaction(s): skin sensitivity, Unknown Other Reaction(s): Unknown REVIEW OF SYMPTOMS: Review of Systems Constitutional: Positive for chills and fatigue. Negative for fever. HENT: Positive for congestion and sinus pressure. Negative for sore throat. Respiratory: Positive for cough. Negative for shortness of breath and wheezing. Gastrointestinal: Negative for diarrhea and vomiting. Neurological: Positive for headaches. OBJECTIVE: 08/28/2024 1:51 PM 04/20/2024 11:29 AM 02/11/2024 1:22 PM Vitals BMI 38.79 kg/m2 36.88 kg/m2 34.92 kg/m2 Systolic 140 134 130 Diastolic 82 78 74 Heart Rate 68 64 Temp 97.7 F 98.3 F Height (in) 5' 6.5 5' 6.5 5' 7.75 Weight (lb) 244 232 228 Visit Report Report Report Report Physical Exam Constitutional: General: She is not in acute distress. Appearance: Normal appearance. HENT: Right Ear: Tympanic membrane and ear canal normal. Left Ear: Tympanic membrane and ear canal normal. Mouth/Throat: Pharynx: No posterior oropharyngeal erythema. Eyes: Conjunctiva/sclera: Conjunctivae normal. Cardiovascular: Rate and Rhythm: Normal rate and regular rhythm. Pulmonary: Breath sounds: Normal breath sounds. No wheezing, rhonchi or rales. Lymphadenopathy: Cervical: No cervical adenopathy. Skin: Findings: No rash. ASSESSMENT AND PLAN: Problem List Items Addressed This Visit None Visit Diagnoses Acute non-recurrent maxillary sinusitis - Primary Relevant Medications doxycycline (Vibramycin) 100 MG capsule Testing for covid/flu were negative. With her symptoms continuing to get worse after 4 days will treat with abx. Encouraged to take abx with food to prevent stomach upset. She is to call with any problems or not improving. Follow up if symptoms worsen or fail to improve. Patient's Medications New Prescriptions DOXYCYCLINE (VIBRAMYCIN) 100 MG CAPSULE Take 1 capsule (100 mg) by mouth in the morning and 1 capsule (100 mg) before bedtime. Do all this for 10 days. Take with at least 8 ounces (large glass) of water, do not lie down for 30 minutes after. Previous Medications ASCORBIC ACID (VITAMIN C) 1000 MG TABLET ASPIRIN 81 MG EC TABLET Daily CHOLECALCIFEROL (VITAMIN D-3) 25 MCG (1000 UT) CAPSULE CLONAZEPAM (KLONOPIN) 0.5 MG TABLET Take 1 tablet (0.5 mg) by mouth 2 (two) times a day as needed for anxiety DILTIAZEM CD (CARDIZEM CD) 120 MG 24 HR CAPSULE Take 120 mg by mouth in the morning. ESTRADIOL PO Take by mouth Buderer compound TRIEST FERROUS SULFATE 325 (65 FE) MG TABLET Take 325 mg by mouth every other day FLECAINIDE (TAMBOCOR) 50 MG TABLET Take 50 mg by mouth in the morning and 50 mg in the evening. LEVOTHYROXINE (SYNTHROID, LEVOXYL) 100 MCG TABLET TAKE 1 TABLET BY MOUTH EVERY OTHER DAY ALTERNATING WITH 112MCG LEVOTHYROXINE (SYNTHROID, LEVOXYL) 112 MCG TABLET TAKE 1 TABLET BY MOUTH EVERY OTHER DAY ALTERNATING WITH 100 MCG DOSE LISINOPRIL 20 MG TABLET TAKE 1 TABLET BY MOUTH DAILY MAGNESIUM CITRATE SOLUTION Take by mouth 400mg MISC NATURAL PRODUCTS PO 2.5 mg Triest MULTIPLE VITAMIN (MULTI VITAMIN DAILY PO) Multi Vitamin NITROGLYCERIN (NITROSTAT) 0.[address] 1 tablet (0.4 mg) under the tongue every 5 (five) minutes if needed for chest pain SELENIUM 200 MCG TABLET 1 (one) time each day at the same time. SERTRALINE (ZOLOFT) 25 MG TABLET TAKE 1 TABLET BY MOUTH DAILY Modified Medications No medications on file Discontinued Medications [id number] 1-0.5-0.075 % SOLUTION Administer 1 drop into affected eye(s) in themorning and 1 drop at noon and 1 drop in the evening and 1 drop before bedtime. I have reviewed and reconciled the history and medication list with the patient today. documented in this encounterSSM [id number] History of Present illness Narrative* Elkin Womack, PT - 08/20/2024 10:45 AM EDT Physical Therapy Physical Therapy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 I explained to herthat she has end-stage osteoarthritis of her right hip. We discussed conservative treatment optionsincluding Tylenol and oral anti-inflammatories which she has already tried and failed. We also discussed intra-articular steroid injections. She was reluctant to consider this at first but ultimatelyagreed. We will get her set up for a right hip intra-articular steroid injection with Dr. Acosta. Derek plan to see her back in the [...] hip replacement sometime in the beginning of she is in the process of building a house and she also has some meetings to go to sometime in the summer. [facility] Other 11-09-2021 NoteHNO ID: [id number] Author: Best Valera MD Service: ? Author [...] will follow-up for any problems Best Valera, [facility]10-05-2021 Evaluation note* Encounter Date Diagnosis Assessment Notes Treatment Notes Treatment Clinical Notes Mar, Encounter for immunization (ICD- 10 - Z23) Patient presents for COVID-19 vaccination BOOSTER. Pre-screening form answers evaluated with patient. Patient denies current illness or allergic reaction to component of COVID-19 vaccine. Patient provided with current copy of EUA. [facility] Other 08-24-2021 NoteHNO ID: [id number] Author: Best Valera MD Service: ? Author Type: Physician Type: Progress Notes Filed: 01/24/2021 10:33 AM Note Text: Ortho Knee Follow Up Note Narrative Referring Provider: Best Valera [address] [place] [address] PCP: Nancy Jha, DO IMPRESSION/PLAN: 70 year [...] Best Valera MD January 24, 2021 10:32 [facility]06-17-2021 NoteHNO ID: [id number] Author: Best Valera MD Service: ? Author Type: Physician Type: Progress Notes Filed: 11/17/2020 2:15 PM Note Text: Ortho Knee Follow Up Note Narrative Referring Provider: Best Valera [address] [facility] [address] PCP: Nancy Jha, DO IMPRESSION/PLAN: 70 year [...] Best Valera MD November 17, 2020 2:14 [facility]05-25-2021 NoteHNO ID: [id number] Author: Mendez Cosby PA-C Service: ? Author Type: Physician Plant Production Manager Type: Progress Notes Filed: 10/25/2020 10:27 AM Note Text: Ortho Knee Follow Up Note Narrative Referring Provider: Best Valera [address] [place] [address] PCP: Nancy Jha, DO IMPRESSION/PLAN: 70 year [...] Provider: Mendez Cosby PA-C Completed by: WENDY [facility]ña-[facility]05-25-2021 NoteHNO ID: [id number] Author: RT Og(David) Service: ? Author Type: Hide Buffer Type: Progress Notes Filed: 10/25/2020 9:56 AM [...] BY: RT Og(R) October 25, 2020 9:55 [facility]05-04-2021 NoteHNO ID: [id number] Author: Radha Milligan ([employer]) Service: ? Author Type: ? Type: Plan [...] by: acetaminophen 325 mg tablet Radha Milligan (Dishtank Operator) PAGER: chelly October 04, 2020 3:18 [id number] NoteHNO ID: [id number] Author: Jaci Ojeda RN Service: Care Management Author Type: Registered Nurse Type: Care Mgt Progress Note Filed: 10/04/2020 12:33 PM Note Text: CARE MANAGEMENT DISCHARGE NOTE SERVICE DATE: 10/04/2020 SERVICE TIME: 12:31 PM LOS: 0 days Admission Date: 10/03/2020 DISCHARGE ARRANGEMENT (list agency and phone number) Discharge Arrangement: Home;Home Alf Care: PT CAREGIVER ASSESSMENT: Caregiver is ready, willing and able to meet the patient's needs as recommended by the inter-professional team:: Yes Does the patient have an acute stroke diagnosis, or has the patient had a stroke during this admission?: No Patient's transition needs and plan for meeting these needs: [facility] accepting HANDOFF COMMUNICATION: Handoff to: Primary Care Physician;Other Caregiver Primary Care Physician Name/Phone: Nancy Jha [phone] Other Caregiver Name/Phone: [employer] [phone] TRANSPORTATION ARRANGEMENTS: Transportation Arrangements: Car ADDITIONAL CONTACT RESOURCES: Alex Villeda (Spouse) Discharge Information Row Name Admission (Current) from 10/03/[address] [facility] Start of Care ? within 24-48 hrs of discharge [place] of Choice Given: Yes Level of Care Discussed: Home Care;Other: See Comment (Patient requested [facility]) Caregiver is ready, willing and able to meet the patient's needs as recommended by the inter-professional team:: Yes Does the patient have an acute stroke diagnosis, or has the patient had a stroke during this admission?: No Family Name/Phone: Alex Villeda [phone] Needs Prior to Discharge: Home Care Order Transportation Arrangements: Car SIGNATURE: Jaci Ojeda RN PATIENT NAME: Julia Villeda DATE: October 04, 2020 TIME: 12:31 PM PAGER/CONTACT #: [phone] [id number] NoteHNO ID: [id number] Author: Jaci Ojeda RN Service: Care Management Author Type: Registered Nurse Type: Care Mgt Initial Assessment Filed: 10/04/2020 12:30 PM Note Text: CARE MANAGEMENT: ASSESSMENT AND DISCHARGE PLAN SERVICE DATE: October 04, 2020 SERVICE TIME: 12:29 PM PRIMARY CARE PHYSICIAN: Nancy Jha DO ADMISSION STATUS: Extended Recovery Needs Prior to Discharge: Home Care Order MEDICAL: [facility] CHOICE PLUS 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 Last discharge within 30 days: No Advance Directive: Current Advance Directive: None Assistant Principal Attempted to Assist with AD Completion: Yes [...] bathroom) Has the Patient Been in a Fpc Facility in the Past 30 days?: No SOCIAL: Living Arrangements: Home Lives With: Spouse Financial Resources: Retired Primary Contact: Extended Emergency Contact Information Primary Emergency Contact: Alex Villeda Address: [address] [place] [address] Mobile Relation: Spouse Secondary Emergency Contact: Vaishali Villeda Mobile Relation: Daughter Supportive Patient Contact:: Yes Contact Resources: Family Family Name/Phone: Alex Finkmings [phone] Caregiver AssessmentCaregiver is ready, willing and able to meet the patient's needs as recommended by the inter-professional team:: Yes Does the patient have an acute stroke diagnosis, or has the patient had a stroke during this admission?: No Patient's transition needs and plan for meeting these needs: [facility] accepting Patient's perception of need for this admission: right total knee replacement Medication Adherance I am convinced of the importance of my prescription medication: 0 - Agree Completely I worry that my prescription medication will do more harm than good to me : 0 - Disagree Completely I feel financially burdened by my jhn-mv-qqrhsc expenses for my prescription medication:: 0 - Disagree Completely Risk Score: 0 Patient is categorized as: Low risk < 2 Are you interested in bedside delivery of your medications? Yes Is Patient Psychosocially Complex?: No ASSESSMENT AND PLAN: Medical Needs: Medical Needs: Two or more chronic diseases Psychosocial Needs: Psychosocial Needs: None FREEDOM OF CHOICE EXPLAINED: [place] of Choice Given: Yes Level of Care [...] 04, 2020 TIME: 12:29 PM PAGER/CONTACT #: [phone] [id number] NoteHNO ID: [id number] Author: Olga Freedman PA-C Service: Orthopaedic Surgery Author Type: Physician Plant Production Manager Type: Progress Notes Filed: 10/04/2020 10:31 AM [...] Route Frequency Last Action Ordered Stop 10/04/20 09 aspirin, enteric coated 81 mg tab(s) (Surgical Risk Categories) 81 mg ORAL 2 TIMES DAILY Given, 10/04 93710/03/201951 -- 10/03/201999 pneumatic compression stockings ([place]) 10/03/201999 graduated compression stockings ([place] VTE Prophylaxis: VTE prophylaxis appropriate POST OPERATIVE COMPLICATIONS: Complicated by: uneventful/none SIGNATURE: Olga Freedman PA-C PATIENT NAME: Julia Villeda DATE: October 04, 2020 TIME: 10:30 AM ETX#[id number] NoteHNO ID: [id number] Author: Ml Wilson APRN.SQL SERVER DBA Service: ? Author Type: Nurse Railway Yard Assistant Type: Anesthesia Procedure Notes Filed: 10/03/2020 2:24 PM Note Text: ANESTHESIOLOGY PROCEDURE NOTE Spinal Block General Information Procedure Start Time/Medication Administration: 10/03/2020 1:28 PM Patient location during procedure: OR Timeout Performed Pre-procedure: timeout performed Consent Obtained: Yes Patient identity confirmed: arm band and patient Reason for Block: primary surgical anesthetic Staffing SQL SERVER DBA: Ml Wilson APRN.SQL SERVER DBA Preparation Sterility Preparation: hand hygiene performed prior [...] October 03, 2020 TIME: 2:23 PM CSN: [id number] NoteHNO ID: [id number] Author: Ml Wilson APRN.CRNA Service: ? Author Type: Nurse Railway Yard Assistant Type: Anesthesia Procedure Notes Filed: 10/03/2020 1:37 PM Note Text: ANESTHESIOLOGY PROCEDURE NOTE Peripheral Nerve Block General Information Procedure Start Time/Medication Administration: 10/03/2020 1:34 PM Patient location during procedure: OR Timeout Performed Pre-procedure: timeout performed Consent Obtained: Yes Patient identity confirmed: arm band, care steam bone press tender and patient sedated or unresponsive Reason for [...] October 03, 2020 TIME: 1:36 PM CSN: [id number] HospitalEvaluation noteNorth [facility]ards[place] Other Evaluation noteNo assessment information available [facility] Work Phone: Evaluation noteNo [employer] [place] Other Evaluation note* Diagnosis Onset Date Resolution Status BMI 35.0-35.9,adult acuteHashimoto's diseaseacuteHypertensionacuteSleep apnea treated with continuous positive airway pressure (CPAP)acute [facility] Work Phone: Evaluation note* Diagnosis History of PSVT (paroxysmal supraventricular tachycardia) Palpitations Primary hypertension Unspecified essential hypertension RBBB Pre-syncope Syncope and collapse Bradley's disease Chronic lymphocytic thyroiditis Obstructive sleep apnea syndrome Obstructive sleep apnea (adult) (pediatric) Abnormal EKG Nonspecific abnormal electrocardiogram (ECG) (EKG) documented in this encounter [facility] Work Phone: Evaluation note* Diagnosis History of PSVT (paroxysmal supraventricular tachycardia) Palpitations Pre-syncope Syncope and collapse Abnormal EKG Nonspecific abnormal electrocardiogram (ECG) (EKG) documented in this encounter [facility] Work Phone: Evaluation note* Diagnosis History of PSVT (paroxysmal supraventricular tachycardia) Palpitations Primary hypertension Unspecified essential hypertension RBBB Bradley's disease Chronic lymphocytic thyroiditis BMI 37.0-37.9, adult Never smoked tobacco High risk medication use Medication course changed Obstructive sleep apnea syndrome Obstructive sleep apnea (adult) (pediatric) Pre-syncope Syncope and collapse documented in this encounter [facility] Work Phone: Evaluation note* Diagnosis Onset Date Resolution Status Aftercare following right hip joint repl acement surgery acuteStatus post hip replacementacute [facility] Work Phone: Evaluation note* Diagnosis Pre-operative clearance- [...] replacement, right (10/03/20) [facility] Pre-operative clearance- Primary Preoperative examination, [...] Other specified hypothyroidism [facility] Diagnosis Pre-operative clearance- Primary Preoperative examination, [...] Primary Generalized pain [facility] Diagnosis Onset Date Resolution Status Aftercare following right hip joint repl acement surgery acuteStatus post hip replacementacuteAftercare following right hip joint replacement surgeryacuteGreater trochanteric bursitis of right hipacute Iliotibial band syndrome, right legacuteStatus post hip replacementacute [facility] Work Phone: Evaluation note* Diagnosis Jaw pain, [...] [facility], [facility] Diagnosis Jaw pain, non-TMJ- Primary Essential [...] hip arthroplasty, right [facility] Diagnosis SVT (supraventricular tachycardia) (CMS/HCC)- Primary Other specified cardiac dysrhythmias Chest pain, unspecified type Primary hypertension (CMS/HCC) Unspecified essential hypertension Obesity (BMI 30-39.9) Gastroesophageal reflux disease, unspecified whether esophagitis present [facility] Diagnosis Primary hypertension Unspecified essential hypertension Bradley's disease Chronic lymphocytic thyroiditis RBBB Sleep apnea treated with continuous positive airway pressure (CPAP) Never smoked tobacco BMI 34.0-34.9,adult Angina pectoris, unstable (Multi) Intermediate coronary syndrome Shortness of breath Medication course changed documented in this encounter [facility] Work Phone: Evaluation note* Diagnosis Jaw pain, non-TMJ- Primary Essential hypertension (CMS/HCC) Unspecified essential hypertension Bradley's thyroiditis (CMS/HCC) Chronic lymphocytic thyroiditis IFG (impaired fasting glucose) Major depressive disorder, single episode, mild (HCC) (CMS/HCC) Major depressive disorder, single episode, mild Postoperative care for cataract- Primary Follow-up examination, following other surgery [facility] Diagnosis Jaw pain, non-TMJ- Primary Essential hypertension (CMS/HCC) Unspecified essential hypertension Bradley's thyroiditis (CMS/HCC) Chronic lymphocytic thyroiditis IFG (impaired fasting glucose) Major depressive disorder, single episode, mild (HCC) (CMS/HCC) Major depressive disorder, single episode, mild Postoperative care for cataract- Primary Follow-up examination, following other surgery [facility] Diagnosis Jaw pain, non-TMJ- Primary Essential hypertension (CMS/HCC) Unspecified essential hypertension Bradley's thyroiditis (CMS/HCC) Chronic lymphocytic thyroiditis IFG (impaired fasting glucose) Major depressive disorder, single episode, mild (HCC) (CMS/HCC) Major depressive disorder, single episode, mild Postoperative care for cataract- Primary Follow-up examination, following other surgery [facility] Diagnosis Pre-operative clearance Unspecified pre-operative examination Primary hypertension Unspecified essential hypertension History of PSVT (paroxysmal supraventricular tachycardia) BMI 36.0-36.9,adult High risk medication use Sleep apnea treated with continuous positive airway pressure (CPAP) Never smoked tobacco RBBB Bradley's disease Chronic lymphocytic thyroiditis documented in this encounter [facility] Work Phone: Evaluation note* Diagnosis Jaw pain, non-TMJ- Primary Essential hypertension (CMS/HCC) Unspecified essential hypertension Bradley's thyroiditis (CMS/HCC) Chronic lymphocytic thyroiditis IFG (impaired fasting glucose) Major depressive disorder, single episode, mild (HCC) (CMS/HCC) Major depressive disorder, single episode, mild Arthritis of left ankle- Primary Tailor's bunionette, left [facility] Diagnosis Jaw pain, non-TMJ- Primary Essential hypertension (CMS/HCC) Unspecified essential hypertension Bradley's thyroiditis (CMS/HCC) Chronic lymphocytic thyroiditis IFG (impaired fasting glucose) Major depressive disorder, single episode, mild (HCC) (CMS/HCC) Major depressive disorder, single episode, mild Arthritis of left ankle- Primary Tailor's bunionette, left [facility] Diagnosis Jaw pain, non-TMJ- Primary Essential hypertension (CMS/HCC) Unspecified essential hypertension Bradley's thyroiditis (CMS/HCC) Chronic lymphocytic thyroiditis IFG (impaired fasting glucose) Major depressive disorder, single episode, mild (HCC) (CMS/HCC) Major depressive disorder, single episode, mild Acute non-recurrent maxillary sinusitis- Primary [facility] Diagnosis Jaw pain, non-TMJ- Primary Essential hypertension (CMS/HCC) Unspecified essential hypertension Bradley's thyroiditis (CMS/HCC) Chronic lymphocytic thyroiditis IFG (impaired fasting glucose) Major depressive disorder, single episode, mild (HCC) (CMS/HCC) Major depressive disorder, single episode, mild Arthritis of left ankle- Primary Tailor's bunionette, left [facility] Diagnosis Jaw pain, non-TMJ- Primary Essential hypertension (CMS/HCC) Unspecified essential hypertension Bradley's thyroiditis (CMS/HCC) Chronic lymphocytic thyroiditis IFG (impaired fasting glucose) Major depressive disorder, single episode, mild (HCC) (CMS/HCC) Major depressive disorder, single episode, mild Arthritis of left ankle- Primary Tailor's bunionette, left [facility] Diagnosis Jaw pain, non-TMJ- Primary Essential hypertension (CMS/HCC) Unspecified essential hypertension Bradley's thyroiditis (CMS/HCC) Chronic lymphocytic thyroiditis IFG (impaired fasting glucose) Major depressive disorder, single episode, mild (HCC) (CMS/HCC) Major depressive disorder, single episode, mild Arthritis of left ankle- Primary Tailor's bunionette, left [facility]* Diagnosis Jaw pain, non-TMJ- Primary Essential hypertension (CMS/HCC) Unspecified essential hypertension Bradley's thyroiditis (CMS/HCC) Chronic lymphocytic thyroiditis IFG (impaired fasting glucose) Major depressive disorder, single episode, mild (HCC) (CMS/HCC) Major depressive disorder, single episode, mild Arthritis of left ankle- Primary Tailor's bunionette, left [facility] Diagnosis Jaw pain, non-TMJ- Primary Essential hypertension (CMS/HCC) Unspecified essential hypertension Bradley's thyroiditis (CMS/HCC) Chronic lymphocytic thyroiditis IFG (impaired fasting glucose) Major depressive disorder, single episode, mild (HCC) (CMS/HCC) Major depressive disorder, single episode, mild Pseudophakia- Primary Lens replaced by other means PCO (posterior capsular opacification), bilateral Unspecified after-cataract [facility]* Diagnosis Primary hypertension Unspecified essential hypertension High risk medication use History of PSVT (paroxysmal supraventricular tachycardia) RBBB BMI 37.0-37.9, adult Never smoked tobacco documented in this encounter [facility] Work Phone: History general Narrative - Reported* Type Description Date Medical History [facility]imotos Medical HistoryPanic AttacksMedical HistorySleep ApneaSurgical HistoryT&A1956 Surgical HistoryGUM [id number] HistoryD&C X 86292/Surgical Rnwpdceirkrzjhiqybeckh9637Rwsumyyn Historytotal yvvptuuiebe53/2014Surgical Historyrotator cuff rt rgelrumb47/15Surgical Historyknee replacement Hospitalization HistorySEE ABOVE SURGERYHospitalization HistoryFR-TOTAL DHNPLYETVCG00/2014 [facility] Other History general Narrative - ReportedNort Yards[facility] Other History general Narrative - Reported* Type Description Date Medical History Hashimotos Medical HistoryPanic AttacksMedical HistorySleep ApneaSurgical HistoryT&A1956 Surgical HistoryGUM [id number] HistoryD&C X Surgical Omgdfhhnpxputocnqjimbz3928Dxtqlrig Historytotal ofuikevqfat82/2014Surgical Historyrotator cuff rt rtqjmkca64/15Surgical Historyknee replacement BILAT10/21 Hospitalization HistorySEE ABOVE SURGERYHospitalization HistoryFR-TOTAL PWRILCFUHFG42/2014 [facility] Other Hisuwys general Narrative - Reported* Type Description Date Medical History Hashimotos Medical HistoryPanic AttacksMedical HistorySleep ApneaSurgical HistoryT&A1956 Surgical HistoryGUM [id number] HistoryD&C X Surgical Ismrehuobiyyzazenunypd9705Vxmvcllp Historytotal pjgamyfrqap13/2014Surgical Historyrotator cuff rt uvarsmwf69/15Surgical Historyknee replacement BILAT10/21 Surgical Historybunionectomy Left foot09/10/22Hospitalization HistorySEE ABOVE SURGERYHospitalization HistoryFR-TOTAL OJHFHREPFNO22/2014 [facility] Other history general Narrative - Reported* Type Description Date Medical History Hashimotos Medical HistoryPanic AttacksMedical HistorySleep ApneaSurgical HistoryT&A1956 Surgical HistoryGUM [id number] HistoryD&C X Surgical Cstaicfjaqdtxofxbxibrb5337Uevmzdxf Historytotal vtfyhvnozvs01/2013Surgical Historyrotator cuff rt lracibto05/15Surgical Historyknee replacement BILAT10/21 Surgical Historybunionectomy Left foot09/10/22Surgical HistoryR THA02/11/23 Hospitalization HistorySEE ABOVE SURGERYHospitalization HistoryFR-TOTAL MHMTTSAECKU97/2014 [facility] Other Hospital Discharge instructions Additional Instructions Take a single aspirin dailySelect [facility] Work Phone: Reason for referral (narrative)* Diagnostic Procedure Only (Routine) - Pending ReviewSpecialtyDiagnoses / ProceduresReferred By ContactReferred To ContactXR IMAGING Diagnoses Pain Procedures XR KNEE GENERAL 4V AP BOTH/PA BOTH/LAT/MERC RIGHT RADIOLOGIC EXAM KNEE COMPLETE 4/MORE VIEWS Best Valera MD [address] [place] [address] [place] [address] Referral IDStatusRe[facility]ates [facility] hospitalSt[facility] DateExpiration DateVisits RequestedVisits [id number] Review Auto-Generated Referral / [facility] for visit Narrative* Rehabilitation - Outpatient (Routine) - AuthorizedSpecialtyDiagnoses / ProceduresReferred By Contact Referred To ContactPhysical Therapy Diagnoses Iliotibial band syndrome, right leg Trochanteric bursitis, right hip Procedures [place] [address] [place] [address] Phone: tel: fax: Elkin Womack, PT [address] [place] [address] Phone: tel: fax: Referral IDStatusReasonStchester DateExpiration DateVisits RequestedVisits [id number] Consult and Treat /[id number] [facility] for [facility] Narrative* Rehabilitation - Outpatient (Routine) - AuthorizedSpecialtyDiagnoses / ProceduresReferred By ContactReferred To ContactPhysical Therapy Diagnoses Primary osteoarthritis, left ankle and foot Bunionette of left foot Procedures [facility] PHYS THERAPY EVALUATION Margarito Jones MD [address] [place] [address] [place] [address] Phone: tel: fax: Elkin Womack, PT [address] [place] [address] Phone: tel: fax: Referral IDStatusReasonStart DateExpiration DateVisits RequestedVisits [id number] Consult and Treat [address] [facility] Summary Purpose Family History Relationship Condition Age at Onset Recorded Date/T macy father Myocardial infarction Unknown DementiaUnknownMalignant neoplasm of skinUnknownNot SpecifiedMalignant neoplasm of colonUnknownCerebrovascular accident (CVA)Unknown Relationship Condition Age at Onset Recorded Date/T macy father Myocardial infarction Unknown DementiaUnknownMalignant neoplasm of skinUnknownNot SpecifiedMalignant neoplasm of colonUnknownCerebrovascular accident (CVA)UnknowndaughterAttention deficit disorderUnknownfatherMalignant neoplasmUnknownDeceasedUnknownFamily history of mental disorderUnknownHeart diseaseUnknownNot SpecifiedDeceasedUnknownHistory of strokeUnknownMalignant neoplasmUnknown Relationship Condition Age at Onset Recorded Date/T macy father Myocardial infarction Unknown DementiaUnknownMalignant neoplasm of skinUnknownmotherMalignant neoplasm of colonUnknownCerebrovascular accident (CVA)UnknowndaughterAttention deficit disorderUnknownfatherMalignant neoplasmUnknownDeceasedUnknownFamily history of mental disorderUnknownHeart diseaseUnknownmotherDeceasedUnknownHistory of stroke UnknownMalignant neoplasmUnknown Advance Directives Advance Directive Response Recorded Date/ Time Advance [...] Chief Complaint r42 e06.3 r00.2 VONDA / ANNUALReason for VisitBMI 35.0-35.9,adult Bradley's disease Hypertension Sleep apnea treated with continuous positive airway pressure (CPAP) Chief Complaint jaw and tight chest pain Chief Complaint jaw and tight chest pain 1 Year Follow Up Z96.649 - Presence of unspecified artificial hip jReason for VisitAftercare following right hip joint replacement surgery Status post hip replacement Chief Complaint jaw and tight chest pain 1 Year Follow Up Z96.649 Z47.1 Z96.641Reason for VisitAftercare following right hip joint replacement surgery Status post hip replacement Chief Complaint jaw and tight chest pain 1 Year Follow Up Z96.649 Z47.1 Z96.641 OP SP RT RADHA PAIN CONCERN FOR INJURY Z47.1 - Aftercare following joint replacement surgReason for VisitAftercare following right hip joint replacement surgery Status post hip replacement Aftercare following right hip joint replacement surgery Greater trochanteric bursitis of right hip Iliotibial band syndrome, right leg Status post hip replacement Chief Complaint Admit Date OP SP RT RADHA PAIN CONCERN FOR INJURY Mar shamika2023 9:30am Z47.1 - Aftercare following joint replac ement surg April 02, 2024 9:32am Screening May 21, 2024 9:09am z79.899 i10 June 05, 2024 8: 21am Reason for Visit Admit Date Aftercare following right hip joint repl acement surgery April 02, 2024 9:30am Greater trochanteric bursitis of right h ip April 02, 2024 9:30am Iliotibial band syndrome, right leg Octo 2023 9:30am Status post hip replacement March 9:30am Chief Complaint Admit Date z79.899 i10 June 05, 2024 8: 21am vonda/annual visit August 31, 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 Reason for Visit Admit Date BMI 37.0-37.9, adult August 31, 2024 9: 57am Excessive sleepiness August 31, 2024 9: 57am 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, 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 Hypertension August 31, 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 Sleep apnea treated with con tinuous positive airway pressure (CPAP) August 31, 2024 9:57am SVT (supraventricular tachycardia) August 31, 2024 9:57am Reason for Referral SpecialtyDiagnoses / ProceduresReferred By ContactReferred To Contact Diagnoses RBBB Procedures ECG 12 Lead Mary Alice Tatum MD [address] [place] [address] [address] [place] [address] [facility] DateExpiration DateVisits RequestedVisits [id number]/23/20249/[id number] / Procedures Referred By ContactReferred To ContactRadiology Diagnoses History of PSVT (paroxysmal supraventricular tachycardia) Palpitations Pre-syncope Abnormal EKG Procedures Nuclear Stress Test CHG MYOCARDIAL SPECT MULTIPLE STUDIES Mary Alice Tatum MD [address] [facility] [address] [place] [address] Referral IDStatusReasonStart DateExpiration DateVisits RequestedVisits [id number] Review/[id number] / ProceduresReferred By ContactReferred To Contact Diagnoses History of PSVT (paroxysmal supraventricular tachycardia) Procedures ECG 12 Lead Mary Alice Tatum MD [address] [facility] [address] [place] [address] Referral IDStatusReasonStart DateExpiration DateVisits RequestedVisits [id number]/25/20243/25/[id number] / Procedures Referred By ContactReferred To ContactCardiology Diagnoses History of PSVT (paroxysmal supraventricular tachycardia) Procedures Follow Up In Cardiology Mary Alice Tatum MD [address] [facility] [address] [place] [address] Mary Alice Tatum MD [address] [facility] [address] [place] [address] Referral IDStatusReasonStart DateExpiration DateVisits RequestedVisits [id number]/25/20243/25/202511 Additional Source Comments INFORMATION SOURCE (unrecogn ized section and content) DATE CREATED AUTHOR 10/05/2020 [facility] DATE CREATED AUTHOR AUTHOR'S ORGANIZ ATION 07/26/2021 [facility] DATE CREATED AUTHOR AUTHOR'S ORGANIZ ATION 10/20/2021 [facility] [employer] DATE CREATED AUTHOR AUTHOR'S ORGANIZ ATION 09/14/2022 [facility] DATE CREATED AUTHOR AUTHOR'S ORGANIZ ATION 10/02/2023 [facility] DATE CREATED AUTHOR AUTHOR'S ORGANIZ ATION 06/12/2024 [facility] DATE CREATED AUTHOR AUTHOR'S ORGANIZ ATION 07/06/2024 [facility] DATE CREATED AUTHOR AUTHOR'S ORGANIZ ATION 11/02/2024 [facility] EPIC REASON FOR VISIT (unrecogniz ed section and content) ReasonCommentsFollow-up6m Follow up for HypertensionSpecialtyDiagnoses / ProceduresReferred By ContactReferred To ContactCardiology Diagnoses Primary hypertension Procedures Follow Up In Cardiology Mary Alice Tatum MD [address] [facility] [address] [place] [address] Phone: tel: fax: Mary Alice Tatum MD [address] [place] [address] [address] [place] [address] Phone: tel: fax: Referral IDStatusReasonStart DateExpiration DateVisits RequestedVisits [id number]/27/20251/752520OosvkcPensvxnhHjuqdputs CareSvt petznickSpecialtyDiagnoses / ProceduresReferred By ContactReferred To Contact Diagnoses History of PSVT (paroxysmal supraventricular tachycardia) Procedures ECG 12 Lead Mary Alice Tatum MD [address] [facility] [address] [place] [address] Referral IDStatusReasonStart DateExpiration DateVisits RequestedVisits [id number]/25/20243/[id number] / Procedures Referred By ContactReferred To ContactRadiology Diagnoses History of PSVT (paroxysmal supraventricular tachycardia) Palpitations Pre-syncope Abnormal EKG Procedures Nuclear Stress Test CHG MYOCARDIAL SPECT MULTIPLE STUDIES Mary Alice Tatum MD [address] [facility] [address] [place] [address] Referral IDStatusReasonStart DateExpiration DateVisits RequestedVisits [id number]/25/20243/25/772287ConnfdKggbjujcPpcsgv-rqWrkwro up after stress testSpecialtyDiagnoses / ProceduresReferred By ContactReferred To ContactCardiology Diagnoses History of PSVT (paroxysmal supraventricular tachycardia) Procedures Follow Up In Cardiology Mary Alice Tatum MD [address] [facility] [address] [place] [address] Mary Alice Tatum MD [address] [facility] [address] [place] [address] Referral IDStatusReasonStart DateExpiration DateVisits RequestedVisits [id number]/25/20243/559280BqanteXyaatbssPgt ExamCataract ReasonCommentsGynecologic ExamLMP: LEROY BSO 2014HRT: NoneLast pap 04-19-23 neg.Last mammogram 05-20-23 [facility].Denies breast or urinary concerns.Hemorrhoids C/o straining- blood with stools, but thinks d/t hemorrhoid.ReasonComments Hospital Lgtujg-siIpqnfmGirmarqzTwzlka-xoWSBD ER 02/05/24SpecialtyDiagnoses / ProceduresReferred By ContactReferred To Contact Diagnoses RBBB Procedures ECG 12 Lead Mary Alice Tatum MD [address] [address] Referral IDStatusReasonStart DateExpiration DateVisits RequestedVisits [id number]/23/20249/960986ZehuprQhxtnowcPmcl-stCejjhq CommentsPost-op Vwfqld-fmDqtrelTwbzcvpnZtfyfz-ur1 monthsReferral IDStatusReason Start DateExpiration DateVisits RequestedVisits [id number] /[id number] DateCommentsMed Knaqun264ReasonComments URIReasonCommentsFollow-up Care Teams (unrecognized sec tion and content) Team Status: Active Member Role Status Dates Nancy Jha DO Primary Care Provider Active Team Status: Inactive Member Role Status Dates Nancy Jha DO Primary Care Patti alcantara Attending Provider Active Start: July 17, 2023 End: July 17, 2023 Team Status: Inactive Member Role Status Dates Nancy Jha DO Primary Care Provider Active Start: August 26, 2023 End: August 25egTreasure Frausto ProviderActiveStart: August 26, 2023 End: August 26, 2023 Team Status: Active Member Role Status Dates Provider Conversion Attending Provider Active St art: May 09, 2023 Team Status: Inactive Member Role Status Dates Nancy Jha DO Primary Care Provider Active Start: May 09, 2023 End: May 09, 2023Amber Wang , COMMISSARY SUPERINTENDENT-CAttending ProviderActiveStart: May 09, 2023 End: May 09, 2023 Team Status: Inactive Member Role Status Dates Nancy Luiz , Primary Care Provider Active Start: May 20, 2023 End: May 20, 2023Referral SelfAttending ProviderActiveStart: May 20, 2023 End: May 20, 2023 Team Status: Inactive Member Role Status Dates Nancymaryse Jha , DO Primary Care Provider Active Frank Guzman , DOAttending ProviderActive Team Status: Inactive Member Role Status Dates Nancy Jha , DO Primary Care Provider Active Connie Levine , NPAttending ProviderActive Team Status: Inactive Member Role Status Dates Nancy Jha , Primary Care Provider Active Herman Chang II MDAttending ProviderActive Team Status: Inactive Member Role Status Dates Nancy Jha , Primary Care Provider Active Drew Lou ProviderActive Team Status: Inactive Member Role Status Dates Nancy Jha , DO Primary Care Provider, Attending Provider Active Team Status: Active Member Role Status Dates Nancy Jha , Primary Care Provider Active Herman Chang II MDAttending ProviderActive Team Status: Inactive Member Role Status Dates Nancy Jha , Primary Care Provider Active Amber Wang , COMMISSARY SUPERINTENDENT-CAttending ProviderActive Team Status: Inactive Member Role Status Dates Nancy Jha , Primary Care Provider Active Referral SelfAttending ProviderActiveTeam MemberRelationshipSpecialtyStart Date End Date Nancy Jha DO [address] [place] [address] PCP - [facility] Medicine08/26/23Team MemberRelationshipSpecialtyStart DateEnd Date Nancy Jha, DO [address] [place] [id number] [facility]/26/23Team MemberRelationshipSpecialtyStart DateEnd Date Nancy Jha, DO [address] [place] [address] PCP - [facility]08/26/23Team MemberRelationshipSpecialtyStart DateEnd Date Margieayan Nancy Kasandra DO [address] [place] [address] PCP - [facility]08/26/23Team MemberRelationshipSpecialtyStart DateEnd Date Nancy Jha, DO [address] [place] [address] PCP - [facility]08/26/23 Team Status: Inactive Member Role Status Dates Nancy Jha DO Primary Care Provider Active Start: February 05, 2024 End: February 05, 2024Angela Callahan ProviderActiveStart: February 05, 2024 End: February 05, 2024 Team Status: Inactive Member Role Status Dates Nancy Jha DO Primary Care Provider Active Start: February 24, 2024 End: February 23joselin Chang II, MDAttending ProviderActiveStart: February 24, 2024 End: February 24, 2024 Team Status: Active Member Role Status Dates Nancy Jha DO Primary Care Provider Active Start: February 24, 2024 Herman Chang II, MDAttending ProviderActiveStart: February 24, 2024 Team MemberRelationshipSpecialtyStart DateEnd Date Nancy Jha DO [address] [place] [address] PCP - [facility]11/11/18Team MemberRelationshipSpecialtyStart DateEnd Date Nancy Jha DO [address] [place] [address] [facility] - [facility] [facility]18Team MemberRelationshipSpecialtyStart DateEnd Date Nancy Jha, DO [address] [place] [address] PCP - [facility]11/11/18 Team Status: Inactive Member Role Status Dates Nancy Jha DO Primary Care Provider Active Start: April 02, 2024 End: April 02joselin Chang II, MDAttending ProviderActiveStart: April 02, 2024 End: April 02, 2024 Team Status: Active Member Role Status Dates Nancy Jha DO Primary Care Provider Active Start: April 02, 2024 Herman Chang II, MDAttending ProviderActiveStart: April 02, 2024 Team MemberRelationshipSpecialtyStart DateEnd Date Nancy Jha, DO [address] [place] [address] PCP - General10/21/22Team MemberRelationshipSpecialtyStart DateEnd Date Nancy Jha, DO [address] [place] [address] PCP - General10/21/22Team MemberRelationshipSpecialtyStart DateEnd Date Nancy Jha, DO [address] [place] [address] PCP - General10/21/22Team MemberRelationshipSpecialtyStart DateEnd Date Nancy Jha, DO [address] [place] [address] PCP - General10/21/22Team MemberRelationshipSpecialtyStart DateEnd Date Nancy Jha, DO [address] [place] [address] PCP - General10/21/22Team MemberRelationshipSpecialtyStart DateEnd Date Nancy Jha, DO [address] [place] [address] PCP - General10/21/22Team MemberRelationshipSpecialtyStart DateEnd Date Nancy Jha, DO [address] [place] [address] PCP - General10/21/22Team MemberRelationshipSpecialtyStart DateEnd Date Nancy Jha, DO [address] [place] [address] PCP - General10/21/22Team MemberRelationshipSpecialtyStart DateEnd Date Nancy Jha, DO [address] [place] [address] PCP - General10/21/22Team MemberRelationshipSpecialtyStart DateEnd Date Nancy Jha, DO [address] [place] [address] PCP - General10/21/22Team MemberRelationshipSpecialtyStart DateEnd Date Nancy Jha, DO [address] [place] [address] PCP - General10/21/22 Team Status: Inactive Member Role Status Dates Nancy Jha DO Primary Care Provider Active Start: May 21, 2024 End: May 21, 2024Frank Guzman , DOAttending ProviderActiveStart: May 21, 2024 End: May 21, 2024 Team Status: Inactive Member Role Status Dates Nancy Jha DO Primary Care Provider Active Start: June 05, 2024 End: June 05, 2024Gecliffchaitanya Tatum MDAttthao ProviderActiveStart: June 05, 2024 End: June 05, 2024Team MemberRelationshipSpecialtyStart DateEnd Date Nancy Jha, DO [address] [place] [address] PCP - General10/21/22Team MemberRelationshipSpecialtyStart DateEnd Date Nancy Jha, DO [address] [place] [address] [facility] - [facility] MemberRelationshipSpecialtyStart DateEnd Date Nancy Jha, DO [address] [place] [address] PCP - General10/21/22Team MemberRelationshipSpecialtyStart DateEnd Date Nancy Jha, DO [address] [place] [address] PCP - General10/21/22Team MemberRelationshipSpecialtyStart DateEnd Date Nancy Jha, DO [address] [place] [address] PCP - General10/21/22Team MemberRelationshipSpecialtyStart DateEnd Date Nancy Jha, DO [address] [place] [address] PCP - General10/21/22 Team Status: Inactive Member Role Status Dates Nancy Jha DO Primary Care Provider Active Start: August 31, 2024 End: August 31, 2024Connie Levine NPAttending ProviderActiveStart: August 31, 2024 End: August 31, 2024Team MemberRelationshipSpecialtyStart DateEnd Date Nancy Jha DO [address] [place] [address] PCP - General10/21/22Team MemberRelationshipSpecialtyStart DateEnd Date Nancy Jha, [address] [place] [address] PCP - General10/21/22Team MemberRelationshipSpecialtyStart DateEnd Date Nancy Jha DO [address] [place] [address] PCP - General10/21/22Team MemberRelationshipSpecialtyStart DateEnd Date Nancy Jha, [address] [place] [address] PCP - General10/21/22Team MemberRelationshipSpecialtyStart DateEnd Date Nancy Jha, [address] [place] [address] PCP - General10/21/22Team MemberRelationshipSpecialtyStart DateEnd Date Nancy Jha DO [address] [place] [address] [facility]CP - [facility]08/26/23Team MemberRelationshipSpecialtyStart DateEnd Date Nancy Jha DO [address] [place] [address] [facility]10/21/22 Goals (unrecognized section and content) Goals may be documented in a n alternate section Source Comments (unrecognize d section and content) In the event this informatio n is protected by the Federal Confidentiality of Alcohol and Drug Abuse Patient Records regulations: The Federal rules restrict any use of the information to criminally investigate or prosecute any alcohol or drug abuse patient.[facility] CenterIn the event this information is protected by the Federal Confidentiality of Alcohol and Drug Abuse Patient Records regulations: The Federal rules restrict any use of the information to criminally investigate or prosecute any alcohol or drug abuse patient.[facility] CenterIn the event this information is protected by the Federal Confidentiality of Alcohol and Drug Abuse Patient Records regulations: The Federal rules restrict any use of the information to criminally investigate or prosecute any alcohol or drug abuse patient.[facility] FOR RECORDS PERTAINING TO PATIENTS [...] BE BASED ON THE PRIMARY CLINICAL RECORDS. [facility]. provides no warranty or guarantee of the accuracy or completeness of information in this document.
== END 2025-04-19 14:36 | disposition home or self-care (01) ==
LOC: RAD 14:35
PROVIDERS: PCP Family Medicine; Visit Provider Podiatrist Foot & Ankle Surgery
DX: M79.672 Pain in left foot (principal); M19.072 Primary osteoarthritis, left ankle and foot
CPT/HCPCS: 73630